=== PATIENT | female | born 1980 | race Caucasian/White ===

== ENCOUNTER → 2016-12-30 | Outpatient (CLI) | payer OTHER ==
--- NOTE | 2016-12-31 07:53 | XR ---
EXAMINATION TYPE: XR chest 2V DATE OF EXAM: 12/30/2016 COMPARISON: NONE HISTORY: Cough. Exposure to mold. TECHNIQUE: Frontal and lateral views of the chest are obtained. FINDINGS: There is no focal air space opacity, pleural effusion, or pneumothorax seen. The cardiac silhouette size is within normal limits. The osseous structures are intact. IMPRESSION: No acute cardiopulmonary process.
== END | disposition home or self-care (01) ==
LOC: RADXRMAIN 16:04
PROVIDERS: ATTEND Family Medicine
DX: Z77.120 Contact with and (suspected) exposure to mold (toxic) (principal)
CPT/HCPCS: 71020

== ENCOUNTER 2017-10-30 09:40 | Emergency (ER) | payer OTHER ==
--- NOTE | 2017-10-30 10:51 | ED ---
General Adult HPI - General Chief complaint: Abdominal Pain Stated complaint: RT SIDE RIB PAIN X 3 WEEKS Time Seen by Provider: 10/30/17 10:26 Source: patient, RN notes reviewed Mode of arrival: ambulatory Limitations: no limitations - History of Present Illness Initial comments: Patient 37-year-old male presented emergency room today with a chief complaint of right upper quadrant pain over the last 3 weeks. Patient does admit that she was worse with certain that it was something related to work. States symptoms seem to be more persistent and getting worse. Describes a sharp pain does been some radiation to the back. States worse with deep breath. Patient admits to a history of blood clot. States not on any blood thinners. Patient denies any recent fever, chills, shortness of breath, chest pain, nausea or vomiting, numbness or tingling, dysuria or hematuria, constipation or diarrhea, headaches or visual changes, or any other complaints. - Related Data Home Medications Medication Instructions Recorded Confirmed Acetaminophen-Codeine 300-30mg 1 tab PO TID PRN 02/06/16 10/30/17 [Tylenol w/codeine #3] Dextroamphetamine/Amphetamine 30 mg PO BID 10/30/17 10/30/17 [Adderall] Gabapentin [Neurontin] 400 mg PO TID 10/30/17 10/30/17 Previous Rx's Medication Instructions Recorded Ibuprofen [Motrin] 600 mg PO Q6HR PRN #40 day 10/30/17 Allergies Allergy/AdvReac Type Severity Reaction Status Date / Time No Known Allergies Allergy Verified 10/30/17 10:15 Review of Systems ROS Statement: Those systems with pertinent positive or pertinent negative responses have been documented in the HPI. ROS Other: All systems not noted in ROS Statement are negative. Past Medical History Past Medical History: Blood Disorder, Eye Disorder Additional Past Medical History / Comment(s): optic neuritis, multiple sclerosis ,profiency s disorder History of Any Multi-Drug Resistant Organisms: None Reported Past Surgical History: Appendectomy Additional Past Surgical History / Comment(s): ectopic Past Anesthesia/Blood Transfusion Reactions: No Reported Reaction Past Psychological History: Anxiety Smoking Status: Current every day smoker Past Alcohol Use History: None Reported Past Drug Use History: None Reported General Exam - General Exam Comments Initial Comments: General: The patient is awake and alert, in no distress, and does not appear acutely ill. Eye: Pupils are equal, round and reactive to light, extra-ocular movements are intact. No nystagmus. There is normal conjunctiva bilaterally. No signs of icterus. Ears, nose, mouth and throat: There are moist mucous membranes and no oral lesions. Neck: The neck is supple, there is no tenderness or JVD. Cardiovascular: There is a regular rate and rhythm. No murmur, rub or gallop is appreciated. Respiratory: Lungs are clear to auscultation, respirations are non-labored, breath sounds are equal. No wheezes, stridor, rales, or rhonchi. Gastrointestinal: Abdomen soft on palpation. Does have increased tenderness right upper quadrant. Positive Bobby sign. No rebound tenderness. No guarding. No CVA tenderness. Musculoskeletal: Normal ROM, no tenderness. Strength 5/5. Sensation intact. Pulses equal bilaterally 2+. Neurological: A&O x 3. CN II-XII intact, There are no obvious motor or sensory deficits. Coordination appears grossly intact. Speech is normal. Skin: Skin is warm and dry and no rashes or lesions are noted. Psychiatric: Cooperative, appropriate mood & affect, normal judgment. Limitations: no limitations Course Vital Signs 10/30/17 10/30/17 10/30/17 10:01 12:30 13:18 Temperature 98.8 F 98.0 F Pulse Rate 69 79 Respiratory 16 18 18 Rate Blood Pressure 130/83 119/73 O2 Sat by Pulse 96 98 Oximetry EKG Findings - EKG Comments: EKG Findings:: EKG performed at 1121: Shows normal sinus rhythm at 68 beats per minute. [place] interval 128. QRS 86. QT/QTC 388/412. No acute ST change. Medical Decision Making - Medical Decision Making Labs been reviewed. Patient's d-dimer elevated 2.2. Patient did have CT angiogram of the chest. Reveals no evidence of PE. Does show a right-sided sixth rib fracture. Patient denies any specific injury that she can think of. She states she's had pain for the past 3 weeks. Patient remaining labs unremarkable. Ultrasound of the right upper quadrant shows a contracted gallbladder. Patient is advised to brace the area if she needs to cough or sneeze. Advised to use ibuprofen for pain. Advised follow-up family physician or return here to the emergency room for any other concerns. - Lab Data Result diagrams: 10/30/17 11:20 04/13/18 11:20 Lab Results 10/30/17 10/30/17 10/30/17 Range/Units 11:20 11:20 11:20 WBC 7.6 (3.8-10.6) k/uL RBC 4.44 (3.80-5.40) m/uL Hgb 13.4 (11.4-16.0) gm/dL Hct 40.6 (34.0-46.0) % MCV 91.5 (80.0-100.0) fL MCH 30.3 (25.0-35.0) pg MCHC 33.1 (31.0-37.0) g/dL RDW 12.9 (11.5-15.5) % Plt Count 289 (150-450) k/uL Neutrophils % 61 % Lymphocytes % 27 % Monocytes % 7 % Eosinophils % 3 % Basophils % 1 % Neutrophils # 4.7 (1.3-7.7) k/uL Lymphocytes # 2.1 (1.0-4.8) k/uL Monocytes # 0.5 (0-1.0) k/uL Eosinophils # 0.2 (0-0.7) k/uL Basophils # 0.1 (0-0.2) k/uL PT 9.4 (9.0-12.0) sec INR 0.9 (<1.2) APTT 25.1 (22.0-30.0) sec D-Dimer 2.28 H (<0.60) mg/L FEU Sodium 139 (137-145) mmol/L Potassium 4.9 (3.5-5.1) mmol/L Chloride 105 (98-107) mmol/L Carbon Dioxide 24 (22-30) mmol/L Anion Gap 10 mmol/L BUN 16 (7-17) mg/dL Creatinine 0.50 L (0.52-1.04) mg/dL Est GFR (CKD-EPI)AfAm >90 (>60 ml/min/1.73 sqM) Est GFR (CKD-EPI)NonAf >90 (>60 ml/min/1.73 sqM) Glucose 89 (74-99) mg/dL Calcium 9.9 (8.4-10.2) mg/dL Total Bilirubin 0.3 (0.2-1.3) mg/dL AST 19 (14-36) U/L ALT 15 (9-52) U/L Alkaline Phosphatase 83 (38-126) U/L Troponin I (0.000-0.034) ng/mL Total Protein 7.4 (6.3-8.2) g/dL Albumin 4.2 (3.5-5.0) g/dL Amylase 45 (30-110) U/L Lipase 49 (23-300) U/L Urine Color Urine Appearance (Clear) Urine pH (5.0-8.0) Ur Specific Clemons (1.001-1.035) Urine Protein (Negative) Urine Glucose (UA) (Negative) Urine Ketones (Negative) Urine Blood (Negative) Urine Nitrite (Negative) Urine Bilirubin (Negative) Urine Urobilinogen (<2.0) mg/dL Ur Leukocyte Esterase (Negative) Urine HCG, Qual (Not Detectd) 10/30/17 10/30/17 10/30/17 Range/Units 11:20 11:20 11:20 WBC (3.8-10.6) k/uL RBC (3.80-5.40) m/uL Hgb (11.4-16.0) gm/dL Hct (34.0-46.0) % MCV (80.0-100.0) fL MCH (25.0-35.0) pg MCHC (31.0-37.0) g/dL RDW (11.5-15.5) % Plt Count (150-450) k/uL Neutrophils % % Lymphocytes % % Monocytes % % Eosinophils % % Basophils % % Neutrophils # (1.3-7.7) k/uL Lymphocytes # (1.0-4.8) k/uL Monocytes # (0-1.0) k/uL Eosinophils # (0-0.7) k/uL Basophils # (0-0.2) k/uL PT (9.0-12.0) sec INR (<1.2) APTT (22.0-30.0) sec D-Dimer (<0.60) mg/L FEU Sodium (137-145) mmol/L Potassium (3.5-5.1) mmol/L Chloride (98-107) mmol/L Carbon Dioxide (22-30) mmol/L Anion Gap mmol/L BUN (7-17) mg/dL Creatinine (0.52-1.04) mg/dL Est GFR (CKD-EPI)AfAm (>60 ml/min/1.73 sqM) Est GFR (CKD-EPI)NonAf (>60 ml/min/1.73 sqM) Glucose (74-99) mg/dL Calcium (8.4-10.2) mg/dL Total Bilirubin (0.2-1.3) mg/dL AST (14-36) U/L ALT (9-52) U/L Alkaline Phosphatase (38-126) U/L Troponin I <0.012 (0.000-0.034) ng/mL Total Protein (6.3-8.2) g/dL Albumin (3.5-5.0) g/dL Amylase (30-110) U/L Lipase (23-300) U/L Urine Color Yellow Urine Appearance Clear (Clear) Urine pH 6.0 (5.0-8.0) Ur Specific Clemons 1.018 (1.001-1.035) Urine Protein Negative (Negative) Urine Glucose (UA) Negative (Negative) Urine Ketones Negative (Negative) Urine Blood Negative (Negative) Urine Nitrite Negative (Negative) Urine Bilirubin Negative (Negative) Urine Urobilinogen 2.0 (<2.0) mg/dL Ur Leukocyte Esterase Negative (Negative) Urine HCG, Qual Not Detected (Not Detectd) Disposition Clinical Impression: Rib fracture Disposition: HOME SELF-CARE Condition: Good Instructions: Rib Fracture (ED) Additional Instructions: Please brace area few need to cough or sneeze. Please use Tylenol/Motrin for pain as needed. Please follow family doctor return to emergency room for any symptoms increase worsen. Prescriptions: Ibuprofen [Motrin] 600 mg PO Q6HR PRN #40 day PRN Reason: Pain Referrals: Reza Walters DO [Primary Care Provider] - 1-2 days Time of Disposition: 13:46
[2017-10-30 11:33] LABS: Basophils # (A) 0.1 k/uL (0-0.2); Basophils % (A) 1 %; Eosinophils # (A) 0.2 k/uL (0-0.7); Eosinophils % (A) 3 %; HCT 40.6 % (34.0-46.0); HGB 13.4 gm/dL (11.4-16.0); Lymphocytes # (A) 2.1 k/uL (1.0-4.8); Lymphocytes % (A) 27 %; MCH 30.3 pg (25.0-35.0); MCHC 33.1 g/dL (31.0-37.0); MCV 91.5 fL (80.0-100.0); Mean Platelet Volume 7.8; Monocytes # (A) 0.5 k/uL (0-1.0); Monocytes % (A) 7 %; Neutrophils # (A) 4.7 k/uL (1.3-7.7); Neutrophils % (A) 61 %; Platelet Count 289 k/uL (150-450); RBC 4.44 m/uL (3.80-5.40); RDW 12.9 % (11.5-15.5); WBC 7.6 k/uL (3.8-10.6)
[2017-10-30 11:43] LABS: Appearance,Urine Clear (Clear); Bilirubin,Urine Negative (Negative); Blood,Urine Negative (Negative); Color,Urine Yellow; Glucose,Urine (UA) Negative (Negative); Ketones,Urine Negative (Negative); Leukocyte Esterase,Urine Negative (Negative); Nitrite,Urine Negative (Negative); Protein,Urine Negative (Negative); Specific Gravity,Urine 1.018 (1.001-1.035)
[2017-10-30 11:45] LABS: ALT 15 U/L (9-52); AST 19 U/L (14-36); Albumin 4.2 g/dL (3.5-5.0); Alkaline Phosphatase 83 U/L (38-126); Amylase 45 U/L (30-110); Anion Gap 10 mmol/L; Blood Urea Nitrogen 16 mg/dL (7-17); Calcium 9.9 mg/dL (8.4-10.2); Carbon Dioxide 24 mmol/L (22-30); Chloride 105 mmol/L (98-107); Glucose 89 mg/dL (74-99); Lipase 49 U/L (23-300); Potassium 4.9 mmol/L (3.5-5.1); Sodium 139 mmol/L (137-145); Total Bilirubin 0.3 mg/dL (0.2-1.3); Total Protein 7.4 g/dL (6.3-8.2)
[2017-10-30 11:55] LABS: INR 0.9 (<1.2)
[2017-10-30 11:56] LABS: D-Dimer 2.28 mg/L FEU (<0.60); Partial Thromboplastin Time 25.1 sec (22.0-30.0); Prothrombin Time 9.4 sec (9.0-12.0)
--- NOTE | 2017-10-30 12:07 | US ---
EXAMINATION TYPE: US abdomen limited DATE OF EXAM: 10/30/2017 COMPARISON: NONE CLINICAL HISTORY: Abdominal Pain. Patient ate this morning EXAM MEASUREMENTS: Liver Length: 15.7 cm Gallbladder Wall: 0.26 cm CBD: 0.29 cm Right Kidney: 11.9 x 4.4 x 4.8 cm Pancreas: Tail obscured by overlying bowel gas, visualized portions appear wnl Liver: wnl Gallbladder: Slightly contracted, no gallstones or sludge visualized Evidence for sonographic Bobby's sign: No CBD: wnl Right Kidney: No hydronephrosis or masses seen IMPRESSION: The gallbladder is contracted without evidence for cholelithiasis or pericholecystic flui d.
--- NOTE | 2017-10-30 12:29 | XR ---
EXAMINATION TYPE: XR chest 2V DATE OF EXAM: 10/30/2017 COMPARISON: NONE HISTORY: Chest pain TECHNIQUE: Frontal and lateral views of the chest are obtained. FINDINGS: There is no focal air space opacity. No evidence for pneumothorax. No pleural effusion. The cardiac silhouette size is within normal limits. The osseous structures are grossly intact. IMPRESSION: 1. No acute cardiopulmonary process.
[2017-10-30 12:31] VITALS: RESP 18; TEMP 98
[2017-10-30] MEDS ORDERED: RX INFO: IV CONTRAST WAS GIVEN 1 EACH MISC MISCELLANE PRN (12:38)
[2017-10-30] MEDS ORDERED: SODIUM CHLORIDE 0.9% 1,000 ML IV STA (12:39)
--- NOTE | 2017-10-30 13:24 | CT ---
EXAMINATION TYPE: CT angio chest DATE OF EXAM: 10/30/2017 COMPARISON: Chest x-ray same day HISTORY: Right sided rib pain CT DLP: 173.8 mGycm Automated exposure control for dose reduction was used. CONTRAST: CTA scan of the thorax is performed with IV Contrast, patient injected with 100 mL of Isovue 370, pul monary embolism protocol. MIP images are created and reviewed. 3D reconstructed images are created on an independent workstation and reviewed. FINDINGS: LUNGS: The lungs are remarkable for minimal dependent atelectatic change, there is no concerning pare nchymal mass or nodule identified. There is no pleural effusion or pneumothorax seen. The tracheob ronchial tree is patent. AORTA: No additional significant abnormality is seen. MEDIASTINUM: There is satisfactory enhancement of the pulmonary artery and its branches, there is no CT evidence for pulmonary embolism. There are no greater than 1 cm hilar or mediastinal lymph nodes. No pericardial effusion is seen. OTHER: Minimally displaced right sixth rib fracture is noted.. IMPRESSION: RIGHT SIXTH RIB FRACTURE. NO EVIDENT PULMONARY EMBOLISM. Correlate for history of trauma.
[2017-10-30 14:03] VITALS: BP 123/78; PULSE 87
== END 2017-10-30 14:05 | disposition home or self-care (01) ==
LOC: EC 09:40
DX: S22.31XA Fracture of one rib, right side, initial encounter for closed fracture (principal); R10.11 Right upper quadrant pain; F17.200 Nicotine dependence, unspecified, uncomplicated; Z90.49 Acquired absence of other specified parts of digestive tract; Z79.899 Other long term (current) drug therapy
CPT/HCPCS: 99284; 96360; 36415; 93005; 85379; 80053; 82150; 83690; 84484; 85025; 85610; 85730; 81003; 81025; 71046; 76705; 71275; Q9967

== ENCOUNTER 2018-08-14 22:07 | Inpatient (IN) | payer OTHER ==
[~2018-08-14 22:07] MED LIST: LACTATED RINGERS 1,000 ML IV ONE
--- NOTE | 2018-08-14 22:37 | ED ---
Abdominal Pain HPI - General Chief Complaint: Abdominal Pain Stated Complaint: Abd Pain Time Seen by Provider: 08/14/18 22:11 Source: patient Mode of arrival: EMS Limitations: no limitations - History of Present Illness Initial Comments: Mónica is a 37-year-old female with a history of ruptured ectopic in 2006 who presents the emergency department today for evaluation of sudden onset of severe lower pelvic pain. Patient reports her last normal menses was in May she had spotting in June and one day of spotting in July she has not taken a test at home. Around 7 PM this evening she developed sudden onset of severe abdominal pain which prompted her call EMS for transfer to the hospital. Patient is not on any antiplatelet or anticoagulant medications. She has no police that would prevent her from receiving blood products. - Related Data Home Medications Medication Instructions Recorded Confirmed Acetaminophen-Codeine 300-30mg 1 tab PO TID PRN 02/06/16 10/30/17 [Tylenol w/codeine #3] Dextroamphetamine/Amphetamine 30 mg PO BID 10/30/17 10/30/17 [Adderall] Gabapentin [Neurontin] 400 mg PO TID 10/30/17 10/30/17 Previous Rx's Medication Instructions Recorded Ibuprofen [Motrin] 600 mg PO Q6HR PRN #40 day 10/30/17 Allergies Allergy/AdvReac Type Severity Reaction Status Date / Time No Known Allergies Allergy Verified 08/14/18 22:29 Review of Systems ROS Statement: Those systems with pertinent positive or pertinent negative responses have been documented in the HPI. ROS Other: All systems not noted in ROS Statement are negative. Past Medical History Past Medical History: Blood Disorder, Eye Disorder Additional Past Medical History / Comment(s): optic neuritis, multiple sclerosis ,profiency s disorder History of Any Multi-Drug Resistant Organisms: None Reported Past Surgical History: Appendectomy Additional Past Surgical History / Comment(s): ectopic Past Anesthesia/Blood Transfusion Reactions: No Reported Reaction Past Psychological History: Anxiety Smoking Status: Current every day smoker Past Alcohol Use History: None Reported Past Drug Use History: None Reported General Exam - General Exam Comments Initial Comments: GENERAL: Pale cool diaphoretic HENT: Normocephalic, Atraumatic. EYES: Conjunctival pallor PULMONARY: Tachypnea CARDIOVASCULAR: Tachycardia, regular thready radial pulses ABDOMEN: Distended, firm, peritoneal SKIN: Skin is pale cool and diaphoretic NEUROLOGIC: Patient is alert and oriented x3 MUSCULOSKELETAL: Normal extremities with adequate strength and full range of motion. No lower extremity swelling or edema. No calf tenderness. LYMPHATICS: No significant lymphadenopathy is noted PSYCHIATRIC: Appropriate situational anxiety Limitations: no limitations Limitations: no limitations Course Vital Signs 08/14/18 08/14/18 08/14/18 22:17 22:23 22:43 Temperature 98.1 F 97.5 F L Pulse Rate 75 89 Respiratory 20 20 Rate Blood Pressure 95/75 95/75 132/82 O2 Sat by Pulse 98 Oximetry 08/14/18 08/14/18 08/14/18 22:50 22:51 22:53 Temperature 98.2 F Pulse Rate 101 H 108 H 109 H Respiratory 18 20 18 Rate Blood Pressure 118/87 127/77 127/77 O2 Sat by Pulse 100 Oximetry 08/14/18 08/14/18 08/14/18 23:00 23:06 23:18 Temperature 98.2 F 98.3 F Pulse Rate 113 H 115 H 93 Respiratory 24 24 24 Rate Blood Pressure 127/77 104/79 114/77 O2 Sat by Pulse 100 100 Oximetry Medical Decision Making - Medical Decision Making Patient was seen and evaluated upon arrival to the emergency department during my initial evaluation I did a bedside ultrasound which revealed a large amount of free fluid in the abdomen given history of a very high suspicion for a ruptured ectopic Patient was moved to the resuscitation bay second IV line was obtained Blood was drawn Patient was noted to become hypotensive and tachycardic with systolic blood pressures in the 90s heart rate in the 120s massive transfusion protocol was initiated Patient care was discussed with gynecology on-call Dr. Castellanos, at this time we have no labs patient has not had a positive test but I do suspect an ectopic he will be to bedside to evaluate next line next patient to CT for imaging Patient returned from CT blood pressure continues to hover in the 90s systolic with maps in the high 50s Blood transfusion was initiated CT suggestive of hemorrhage in the pelvis with free fluid in the abdomen Dr. Castellanos and anesthesiology at bedside plan to take the patient to OR for exploratory laparoscopy Labs did results hemoglobin was 10.0 beta-hCG was >6000 consistent with the physical exam and history diagnosis of ruptured ectopic Patient's blood pressure improving after IV fluids and worse liter of blood I was contacted by the lab to, patient's type and screen was positive for antibodies results the patient will have a febrile reaction of blood I did discuss this with Dr. Sandhu who is aware. Patient was transferred to the OR for further management patient was hemodynamically stable at the time of transfer. - Lab Data Result diagrams: 08/14/18 22:25 08/14/18 22:25 Lab Results 08/14/18 08/14/18 08/14/18 Range/Units 22:25 22:25 22:25 WBC 15.4 H (3.8-10.6) k/uL RBC 3.31 L (3.80-5.40) m/uL Hgb 10.0 L (11.4-16.0) gm/dL Hct 31.1 L (34.0-46.0) % MCV 94.1 (80.0-100.0) fL MCH 30.1 (25.0-35.0) pg MCHC 32.0 (31.0-37.0) g/dL RDW 13.0 (11.5-15.5) % Plt Count 323 (150-450) k/uL Neutrophils % 81 % Lymphocytes % 14 % Monocytes % 4 % Eosinophils % 0 % Basophils % 0 % Neutrophils # 12.4 H (1.3-7.7) k/uL Lymphocytes # 2.1 (1.0-4.8) k/uL Monocytes # 0.5 (0-1.0) k/uL Eosinophils # 0.1 (0-0.7) k/uL Basophils # 0.0 (0-0.2) k/uL PT (9.0-12.0) sec INR (<1.2) APTT (22.0-30.0) sec Fibrinogen (200-500) mg/dL Sodium 135 L (137-145) mmol/L Potassium 4.5 (3.5-5.1) mmol/L Chloride 106 (98-107) mmol/L Carbon Dioxide 18 L (22-30) mmol/L Anion Gap 11 mmol/L BUN 15 (7-17) mg/dL Creatinine 0.68 (0.52-1.04) mg/dL Est GFR (CKD-EPI)AfAm >90 (>60 ml/min/1.73 sqM) Est GFR (CKD-EPI)NonAf >90 (>60 ml/min/1.73 sqM) Glucose 218 H (74-99) mg/dL Calcium 9.4 (8.4-10.2) mg/dL Ionized Calcium Abhishek 4.9 (4.5-5.3) mg/dL Total Bilirubin 0.3 (0.2-1.3) mg/dL AST 14 (14-36) U/L ALT 23 (9-52) U/L Alkaline Phosphatase 52 (38-126) U/L Total Protein 6.4 (6.3-8.2) g/dL Albumin 3.7 (3.5-5.0) g/dL HCG, Quant 6163.5 mIU/mL Blood Type A Positive Blood Type Recheck No Antibody Screen POSITIVE Antibody Identification Anti-E Direct Antiglob Test Negative Crossmatch See Detail Spec Expiration Date 08/17/2018 - 232408/14/18 Range/Units 22:25 WBC (3.8-10.6) k/uL RBC (3.80-5.40) m/uL Hgb (11.4-16.0) gm/dL Hct (34.0-46.0) % MCV (80.0-100.0) fL MCH (25.0-35.0) pg MCHC (31.0-37.0) g/dL RDW (11.5-15.5) % Plt Count (150-450) k/uL Neutrophils % % Lymphocytes % % Monocytes % % Eosinophils % % Basophils % % Neutrophils # (1.3-7.7) k/uL Lymphocytes # (1.0-4.8) k/uL Monocytes # (0-1.0) k/uL Eosinophils # (0-0.7) k/uL Basophils # (0-0.2) k/uL PT 10.0 (9.0-12.0) sec INR 0.9 (<1.2) APTT 18.4 L (22.0-30.0) sec Fibrinogen 355 (200-500) mg/dL Sodium (137-145) mmol/L Potassium (3.5-5.1) mmol/L Chloride (98-107) mmol/L Carbon Dioxide (22-30) mmol/L Anion Gap mmol/L BUN (7-17) mg/dL Creatinine (0.52-1.04) mg/dL Est GFR (CKD-EPI)AfAm (>60 ml/min/1.73 sqM) Est GFR (CKD-EPI)NonAf (>60 ml/min/1.73 sqM) Glucose (74-99) mg/dL Calcium (8.4-10.2) mg/dL Ionized Calcium Abhishek (4.5-5.3) mg/dL Total Bilirubin (0.2-1.3) mg/dL AST (14-36) U/L ALT (9-52) U/L Alkaline Phosphatase (38-126) U/L Total Protein (6.3-8.2) g/dL Albumin (3.5-5.0) g/dL HCG, Quant mIU/mL Blood Type Blood Type Recheck Antibody Screen Antibody Identification Direct Antiglob Test Crossmatch Spec Expiration Date Critical Care Time Critical Care Time: Yes Total Critical Care Time: 45 Critical Care Time: Critical Care Critical care time was exclusive of separately billable procedures and treating other patients and teaching time. Critical care was necessary to treat or prevent imminent or life-threatening deterioration. Critical care was time spent personally by me on the following activities: development of treatment plan with patient or surrogate, discussions with consultants, discussions with primary provider, evaluation of patient's response to treatment, examination of patient, obtaining history from patient or surrogate, ordering and performing treatments and interventions, ordering and review of laboratory studies, ordering and review of radiographic studies, pulse oximetry, re-evaluation of patient's condition and review of old charts. Disposition Clinical Impression: Ruptured ectopic , Ruptured left tubal ectopic causing hemoperitoneum Disposition: ADMITTED IP TO THIS [facility] Condition: Serious Is patient prescribed a controlled substance at d/c from ED?: No Referrals: None,Stated [Primary Care Provider] - 1-2 days
[2018-08-14] MEDS ORDERED: fentaNYL (PF) 50 MCG/ML 2 ML AMP IV STA (22:39)
[2018-08-14] MEDS ORDERED: TRANEXAMIC ACID 1,000 MG in SODIUM CHLORIDE 0.9% 50 ML IVPB ONE (22:45)
[2018-08-14 22:52] LABS: Basophils % (A) 0 %; Eosinophils # (A) 0.1 k/uL (0-0.7); Eosinophils % (A) 0 %; HCT 31.1 % (34.0-46.0); Lymphocytes # (A) 2.1 k/uL (1.0-4.8); Lymphocytes % (A) 14 %; MCH 30.1 pg (25.0-35.0); MCV 94.1 fL (80.0-100.0); Monocytes # (A) 0.5 k/uL (0-1.0); Monocytes % (A) 4 %; Neutrophils # (A) 12.4 k/uL (1.3-7.7); Neutrophils % (A) 81 %; Platelet Count 323 k/uL (150-450); RBC 3.31 m/uL (3.80-5.40); WBC 15.4 k/uL (3.8-10.6)
[2018-08-14] MEDS ORDERED: PANTOPRAZOLE 40 MG/10 ML VIAL IVP STA (22:52)
[2018-08-14 23:00] LABS: ALT 23 U/L (9-52); AST 14 U/L (14-36); Albumin 3.7 g/dL (3.5-5.0); Alkaline Phosphatase 52 U/L (38-126); Anion Gap 11 mmol/L; Blood Urea Nitrogen 15 mg/dL (7-17); Calcium 9.4 mg/dL (8.4-10.2); Carbon Dioxide 18 mmol/L (22-30); Chloride 106 mmol/L (98-107); Glucose 218 mg/dL (74-99); Potassium 4.5 mmol/L (3.5-5.1); Sodium 135 mmol/L (137-145); Total Bilirubin 0.3 mg/dL (0.2-1.3); Total Protein 6.4 g/dL (6.3-8.2)
[2018-08-14 23:01] LABS: Ionized Calcium 4.9 mg/dL (4.5-5.3)
[2018-08-14] MEDS ORDERED: NALOXONE 0.4 MG/ML 1 ML VIAL IV PRN (23:03)
--- NOTE | 2018-08-14 23:04 | P.HPOB ---
History of Present Illness H&P Date: 08/14/18 Chief Complaint: Acute pelvic pain and hemoperitoneum suspected ectopic Mónica is a 37-year-old with 1 prior ectopic in 2006 which also ruptured. She relates that she had a normal period sometime in May and maybe 1 day of spotting at some point in June and possibly even sometime in July but she's not had a period since that time. She was on aware that she could be however. Her symptoms began this evening at approximately 7:00 which began having severe abdominal pain it progressed and she was brought to the emergency room where gross hemoperitoneum was diagnosed on ultrasound and she was hemodynamically unstable with tachycardia and while her hemoglobin is 10 she is quite pale and symptomatic for likely ruptured ectopic a quantitative beta-hCG however is not back. I do not have a final ultrasound report on either, so it is possible this is ruptured hemorrhagic cyst or other less common finding. However, based on the amount of blood that appears to be in her belly and the amount of pain she is in we are taking her to the operating room for a exploratory laparotomy possible salpingectomy versus potential oophorectomy or even possibly hysterectomy if there is a large defect in the uterus. Risks/benefits and alternatives were reviewed with the patient and all questions were answered for her prior to proceeding to the operative room, however this is a true emergency based on her symptomatology. On physical exam vital signs currently are stable with stable blood pressure and mild tachycardia with a unit of packed red blood cells running. Heart regular, lungs clear, extremities without pain. Abdomen is firm with distention secondary to the blood. Pelvic exam was deferred to the operating room as it was when offered very little and we are in a relative hurry to try and get her to the operating room to find the source of this bleeding. Assessment abdominal pain with hemoperitoneum suspect ectopic Plan exploratory laparotomy Past Medical History Past Medical History: Blood Disorder, Eye Disorder, Fibromyalgia Additional Past Medical History / Comment(s): optic neuritis, multiple sclerosis ,profiency s disorder History of Any Multi-Drug Resistant Organisms: None Reported Past Surgical History: Appendectomy Additional Past Surgical History / Comment(s): ectopic Past Anesthesia/Blood Transfusion Reactions: No Reported Reaction Past Psychological History: Anxiety Smoking Status: Current every day smoker Past Alcohol Use History: None Reported Past Drug Use History: None Reported Medications and Allergies Home Medications Medication Instructions Recorded Confirmed Type Acetaminophen-Codeine 300-30mg 1 tab PO TID PRN 02/06/16 10/30/17 History [Tylenol w/codeine #3] Dextroamphetamine/Amphetamine 30 mg PO BID 10/30/17 10/30/17 History [Adderall] Gabapentin [Neurontin] 400 mg PO TID 10/30/17 10/30/17 History Ibuprofen [Motrin] 600 mg PO Q6HR PRN #40 day 10/30/17 Rx Allergies Allergy/AdvReac Type Severity Reaction Status Date / Time No Known Allergies Allergy Verified 08/14/18 22:29 Exam Osteopathic Statement: *. No significant issues noted on an osteopathic structural exam other than those noted in the History and Physical/Consult. Vital Signs Temp Pulse Resp BP Pulse Ox 08/14/18 22:53 109 H 18 127/77 08/14/18 22:51 98.2 F 108 H 20 127/77 08/14/18 22:43 97.5 F L 89 20 132/82 08/14/18 22:17 98.1 F 75 20 95/75 98 Intake and Output 08/14/18 08/14/18 08/15/18 14:59 22:59 06:59 Intake Total 0 Balance 0 Intake: Blood Product 0 Rc As-1 Unit 0 [id number] Other: Weight 70.307 kg Results Result Diagrams: 08/14/18 22:25 08/14/18 22:25 Abnormal Lab Results - Last 24 Hours (Table) 08/14/18 08/14/18 Range/Units 22:25 22:25 WBC 15.4 H (3.8-10.6) k/uL RBC 3.31 L (3.80-5.40) m/uL Hgb 10.0 L (11.4-16.0) gm/dL Hct 31.1 L (34.0-46.0) % Neutrophils # 12.4 H (1.3-7.7) k/uL Sodium 135 L (137-145) mmol/L Carbon Dioxide 18 L (22-30) mmol/L Glucose 218 H (74-99) mg/dL
[2018-08-14 23:06] LABS: INR 0.9 (<1.2)
--- NOTE | 2018-08-14 23:10 | CT ---
EXAMINATION TYPE: CT abdomen pelvis w con DATE OF EXAM: 08/14/2018 COMPARISON: None HISTORY: Abdomen pain, hemoperitoneum. Hx ectopic pregnancies. CT DLP: 905.4 mGycm Automated exposure control for dose reduction was used. TECHNIQUE: Helical acquisition of images was performed from the lung bases through the pelvis. CONTRAST: Performed without Oral Contrast and with IV Contrast, patient injected with 100 mL of Isovue 300. FINDINGS: Lung bases are clear. There is no pleural effusion. Heart size is normal. There is no pericardial eff usion. Liver shows no focal defect. Gallbladder appears normal. Bile ducts are not dilated. Spleen has dang l size. There is no pancreatic mass. There is no adrenal mass. Kidneys show satisfactory contrast opacification. There is no hydronephrosi s. Ureters are not dilated. There is no retroperitoneal adenopathy. There is a moderate amount of free fluid in the abdomen. Fluid around the liver has low attenuation. There is higher attenuation fluid in the pelvis. This would be consistent with acute or subacute hemo rrhage. Uterus is anteverted. There is no evidence of free air. There is no evidence of bowel obstruction. I see no intestinal wall thickening in the mid and distal small bowel. There is slight wall thickening of the proximal jejunu m. There is 8 x 4.5 cm higher attenuation mass anterior to the uterine fundus that could be additiona l hemorrhage. Lumbar vertebra have normal spacing and alignment. Posterior elements are intact. There is no albaro ruth fracture. I see no focal bone destruction. IMPRESSION: THERE IS MODERATE AMOUNT OF FREE FLUID IN THE ABDOMEN AND PELVIS. THE FLUID AROUND THE LIVER AND SPLE EN HAS LOW ATTENUATION AND FLUID IN THE PELVIS HAS HIGHER ATTENUATION CONSISTENT WITH ACUTE OR SUBACU TE HEMORRHAGE. Uterus is not enlarged to suggest intrauterine gestational sac. Findings are consisten t with a ruptured ectopic and extensive intraperitoneal hemorrhage. This exam was discussed with ER physician at 11:10 PM.
[2018-08-14 23:16] LABS: HCG,Quantitative Serum 6163.5 mIU/mL
[2018-08-14 23:18] LABS: Partial Thromboplastin Time 18.4 sec (22.0-30.0)
[2018-08-14] MEDS ORDERED: LIDOCAINE 1% INJ 10MG/ML (20 ML MDV) ONE (23:29)
[2018-08-14] MEDS ORDERED: GLYCOPYRROLATE 0.2 MG/ML 2 ML VIAL ONE (23:29)
[2018-08-14] MEDS ORDERED: IV FLUID CONTINUATION 400 ML IV ONE (23:29)
[2018-08-14] MEDS ORDERED: MIDAZOLAM 2 MG/2 ML VIAL ONE (23:29)
[2018-08-14] MEDS ORDERED: fentaNYL (PF) 50 MCG/ML 2 ML AMP ONE (23:29)
[2018-08-14] MEDS ORDERED: ONDANSETRON 4 MG/2 ML VIAL ONE (23:29)
[2018-08-14] MEDS ORDERED: PROPOFOL 10 MG/ML 20 ML VIAL IV ONE (23:29)
[2018-08-14] MEDS ORDERED: HYDROmorphone (PF) 1 MG/ML ONE (23:29)
[2018-08-14] MEDS ORDERED: DEXAMETHASONE SOD PHOS (MDV) 100 MG/10 ML VIAL ONE (23:29)
[2018-08-14] MEDS ORDERED: NEOSTIGMINE 1 MG/ML 10 ML VIAL ONE (23:29)
[2018-08-14] MEDS ORDERED: ROCURONIUM BROMIDE 10 MG/ML 10 ML VIAL IV ONE (23:29)
[2018-08-14] MEDS ORDERED: LACTATED RINGERS 1,000 ML IV ONE (23:51)
[2018-08-15] MEDS ORDERED: ONDANSETRON 4 MG/2 ML VIAL IVP PRN (00:47)
[2018-08-15] MEDS ORDERED: HYDROmorphone 1 MG/ML 1 ML SYRINGE IVP ONE ×4 (00:55→01:35)
--- NOTE | 2018-08-15 00:55 | P.OP ---
Date of Procedure: 08/15/18 Preoperative Diagnosis: Abdominal pain with hemoperitoneum suspect ectopic Postoperative Diagnosis: Same, ectopic ruptured voluntary sterilization Procedure(s) Performed: Exploratory laparotomy with lysis of adhesions and removal of large blood and clot from abdomen. Left salpingectomy and right fallopian tube Filshie clip placement Anesthesia: ADRIANA Surgeon: Sean Castellanos Estimated Blood Loss (ml): 400 IV fluids (ml): 1,400 Urine output (ml): 100 Pathology: other (Tube and ectopic) Condition: stable Disposition: floor Operative Findings: Large amount of blood in the pelvis with omental adhesion along the entire anterior abdominal surface from prior surgery. Ectopic Precis was noted in the left fallopian tube stump from where she previously had a partial salpingectomy no fimbriated end was identified. Normal right fallopian tube bilateral ovaries normal uterus and normal Description of Procedure: Patient was taken to the operative suite where a general anesthetic was found be adequate. She was prepped and draped in the normal sterile fashion and placed in dorsal supine position. Initially a mini laparotomy incision was made in the midline and this incision was extended to the fascial layer with the second knife. Fascia was then nicked in the midline and this opening was extended laterally with Hammond scissors. Superior and inferior aspect of this incision were then grasped tented up and bluntly and sharply dissected off the rectus muscles. Rectus muscles were then divided the midline and blunt dissection through the peritoneum was made. Omental adhesions were immediately noted along the entire length of the anterior abdominal wall they were bluntly and sharply dissected free using Bovie cautery once this was accomplished large quantity of blood and clot was removed from the pelvis. Once we were able to visualize the uterus and ovary and tube the left tube was identified and immediately near the proximal stump of the fallopian tube the ectopic that was identified and noted to have ruptured. Tube was then elevated and using 2 Keven clamps they were clamped around the ectopic and the ectopic present was excised and tissue was sutured closed. Once excellent hemostasis was noted along this line again the pelvis was irrigated and blood and irrigation were removed. Uterus was then tipped the left side and the right fallopian tube was noted to be normal. In the emergency room the patient and I as well as her family had discussed if there is a normal tube that she would like to have permanent sterilization as she is completed her family planning and was actually hoping that this was an ectopic so she could no longer have a fallopian tubes because she did not want to able to get anymore. She has multiple medical problems and health issues which may be dangerous for her to even get in the first place. Therefore a Filshie clip was applied approximately 2 cm from uterine cornu completed completing the occlusion of the fallopian tube. Pelvis was then again irrigated inspection of the remainder the pelvis and lower abdomen were unremarkable. Therefore packing was removed and the fascial layer was closed with 0 Vicryl suture. One layer of 3-0 Vicryl was placed in the deep subcuticular tissues to reapproximate the skin the skin was then also closed with 3-0 Vicryl. Patient tolerated surgery very well, sponge, lap, needle counts were all correct 2. Patient was then taken to the recovery room in stable and satisfactory condition. It is also of note that we did go out and discuss with family the tying the fallopian tube to verify that that was absolutely what the patient desired as it was my understanding in the emergency room at that was what she would want done based on our discussion. They verified this information for us prior to tying of her tube.
[2018-08-15] MEDS ORDERED: HYDROmorphone PCA 5 MG/25 ML SYRINGE IV PRN (01:00)
[2018-08-15 02:18] VITALS: BMI 26.6
[2018-08-15] MEDS: LACTATED RINGERS 1,000 ML IV SCH ×2 (02:32→12:57)
[2018-08-15] MEDS: KETOROLAC 30 MG/ML 1 ML VIAL IVP SCH ×3 (06:25→18:10)
--- NOTE | 2018-08-15 10:01 | P.PN ---
Progress Note - Text Progress Note Date: 08/15/18 Postop day Mónica is seen and evaluated. Overall she looks very good, she is tolerating a liquid diet and will plan to advance her diet today. Tinajero catheter is coming soon she is producing good urine however. CBC from this morning is still pending. She voices no complaints other than some incisional tenderness. Long discussion was held with her this morning regarding findings of surgery and what was done and surgery she was very happy that we did occlude her right fallopian tube as this is giving her a lot of relief in that she will be able to get anymore. Vital signs are stable and she is afebrile. Heart regular, lungs clear, extremities without pain. Abdomen soft her incision is clean dry and intact. Assessment postop day 0 from sports or laparotomy for ruptured ectopic Plan continue current care with discontinuation of MOLD LAMINATOR and starting oral pain medication
[2018-08-15 10:27] LABS: Basophils % (A) 0 %; Eosinophils % (A) 0 %; HCT 25.6 % (34.0-46.0); Lymphocytes # (A) 1.1 k/uL (1.0-4.8); Lymphocytes % (A) 8 %; MCH 29.9 pg (25.0-35.0); MCHC 32.6 g/dL (31.0-37.0); MCV 91.8 fL (80.0-100.0); Mean Platelet Volume 7.3; Monocytes # (A) 0.3 k/uL (0-1.0); Monocytes % (A) 2 %; Neutrophils # (A) 11.4 k/uL (1.3-7.7); Neutrophils % (A) 89 %; Platelet Count 226 k/uL (150-450); RBC 2.79 m/uL (3.80-5.40); WBC 12.8 k/uL (3.8-10.6)
[2018-08-15 10:36] LABS: HGB 8.3 gm/dL (11.4-16.0)
[2018-08-15] MEDS: NICOTINE 14MG/24HR PATCH TRANSDERM SCH (10:58)
[2018-08-15] MEDS: HYDROcodone/APAP 7.5-325MG 1 EACH TAB PO PRN ×2 (15:36→21:36)
[2018-08-15 17:04] LABS: Basophils % (A) 0 %; Eosinophils % (A) 0 %; HGB 7.8 gm/dL (11.4-16.0); Lymphocytes # (A) 1.3 k/uL (1.0-4.8); Lymphocytes % (A) 9 %; MCH 30.1 pg (25.0-35.0); MCHC 32.7 g/dL (31.0-37.0); MCV 92.2 fL (80.0-100.0); Mean Platelet Volume 7.9; Monocytes # (A) 0.7 k/uL (0-1.0); Monocytes % (A) 4 %; Neutrophils # (A) 13.1 k/uL (1.3-7.7); Neutrophils % (A) 86 %; Platelet Count 217 k/uL (150-450); RDW 14.3 % (11.5-15.5); WBC 15.2 k/uL (3.8-10.6)
--- NOTE | 2018-08-15 17:31 | US ---
EXAMINATION TYPE: US OB limited DATE OF EXAM: 08/15/2018 COMPARISON: CT 08/14/2018 CLINICAL HISTORY: abdominal pain and distension post ectopic . EXAM PERFORMED: Transabdominal (TA) This exam was ordered to check for fluid build up in the abdomen post ruptured ectopic surgery. Patie nt feels as if her abdomen is filling up. Dr Castellanos asked Ultrasound to assess abdominal cavity for fluid. The RLQ, LLQ and RUQ where assessed for fluid, none appreciated. No fluid seen around liver ki dney interface. IMPRESSION: Limited exam. No significant free fluid evident on the images submitted.
[2018-08-15] MEDS: diphenhydrAMINE 50 MG CAP PO SCH (20:02)
[2018-08-15] MEDS: SIMETHICONE 80 MG CHEWABLE PO SCH (20:02)
[2018-08-16] MEDS: KETOROLAC 30 MG/ML 1 ML VIAL IVP SCH (00:23)
[2018-08-16] MEDS: HYDROcodone/APAP 7.5-325MG 1 EACH TAB PO PRN (05:34)
[2018-08-16] MEDS: IBUPROFEN 600 MG TAB PO SCH ×2 (06:16→20:08)
[2018-08-16 06:28] LABS: Basophils % (A) 0 %; Eosinophils % (A) 0 %; HCT 20.3 % (34.0-46.0); Lymphocytes # (A) 2.1 k/uL (1.0-4.8); Lymphocytes % (A) 21 %; MCH 29.6 pg (25.0-35.0); MCHC 32.3 g/dL (31.0-37.0); MCV 91.5 fL (80.0-100.0); Mean Platelet Volume 6.9; Monocytes # (A) 0.5 k/uL (0-1.0); Monocytes % (A) 5 %; Neutrophils # (A) 7.2 k/uL (1.3-7.7); Neutrophils % (A) 71 %; Platelet Count 203 k/uL (150-450); RBC 2.22 m/uL (3.80-5.40); RDW 14.3 % (11.5-15.5); WBC 10.1 k/uL (3.8-10.6)
[2018-08-16 06:38] LABS: HGB 6.6 gm/dL (11.4-16.0)
--- NOTE | 2018-08-16 07:43 | P.PN ---
Progress Note - Text Progress Note Date: 08/16/18 Mónica is seen and evaluated at least 3 times yesterday due to initially some abdominal pain and then some mild tachycardia. During all of her visits she relayed no signs or symptoms of hypovolemia other than the mild tachycardia. And through the day the pain actually dramatically improved and by the time the evening had come approximately 8:00 at night her pain was gone she was up ambulating without difficulty and voiced no complaints. Her initial hemoglobin yesterday morning was noted to be 8.3 and at approximately 4:00 the afternoon it was noted to drop to 7.8. As difficult say at that time with only a half gram hematoma loss at this was still equalizing out from her ectopic the night before work there were still some slow blood loss, but as she had no symptoms of hypovolemia and was tolerating a regular diet well and decision to monitor through the night and repeat CBC in the morning was made. This morning her hemoglobin is noted to be 6.6 and while she continues to be essentially asymptomatic with no dizziness. she is able to ambulate and sitting up in bed sitting up in bed without any feelings of dizziness or weakness. She has no shortness of breath and her heart is regular with minimal tachycardia at 104. Blood pressure this morning was approximate 110/70. Through the night she had some blood pressures in the 90s over 50s but this is well she was sleeping and she was easily arousable and had a pulse in the low 100s not indicating any significant compensation. That said, due to the large drop in hemoglobin and suspicion for some internal bleeding, we are going to return to the operating room and do a repeat exploratory laparotomy to try and stop the bleeding. She night did discuss that it is entirely possible that once were in if the bleeding has stopped we may not be able to find the source of the bleeding but due to such a large, almost 2 g drop in her hemoglobin over 24 hours I do not feel comfortable monitoring it any further and believe that surgical intervention to stop whatever bleeding is going on is needed. Risks and benefits of the surgery were reviewed with the patient in detail and all questions were answered for her prior to proceeding to the operating room. Vital signs again are stable and she is afebrile. Heart regular, lungs clear, extremities without pain. Abdomen remains soft with positive bowel sounds. Incision is otherwise intact. Assessment postop 81 with anemia Plan repeat exploratory laparotomy
[2018-08-16] MEDS ORDERED: SODIUM CHLORIDE 0.9% 500 ML 500 ML IV ONE ×2 (08:32→09:35)
[2018-08-16] MEDS ORDERED: PROPOFOL 10 MG/ML 20 ML VIAL IV ONE (08:48)
[2018-08-16] MEDS ORDERED: GLYCOPYRROLATE 0.2 MG/ML 2 ML VIAL ONE (08:48)
[2018-08-16] MEDS ORDERED: fentaNYL (PF) 50 MCG/ML 2 ML AMP ONE (08:48)
[2018-08-16] MEDS ORDERED: MIDAZOLAM 2 MG/2 ML VIAL ONE (08:48)
[2018-08-16] MEDS ORDERED: LIDOCAINE 1% INJ 10MG/ML (20 ML MDV) ONE (08:48)
[2018-08-16] MEDS ORDERED: SUCCINYLCHOLINE CHLORIDE 100 MG/5 ML SYR IV ONE (08:48)
[2018-08-16] MEDS ORDERED: HYDROmorphone (PF) 1 MG/ML ONE (08:48)
[2018-08-16] MEDS ORDERED: NEOSTIGMINE 1 MG/ML 10 ML VIAL ONE (08:48)
[2018-08-16] MEDS ORDERED: SODIUM CHLORIDE 0.9% 50 ML with ceFAZolin 2,000 MG IV ONE ×2 (09:01)
--- NOTE | 2018-08-16 09:54 | P.OP ---
Date of Procedure: 08/16/18 Preoperative Diagnosis: Postop anemia rule out hemorrhage Postoperative Diagnosis: Same Procedure(s) Performed: Exploratory laparotomy Anesthesia: EVAN Surgeon: Sean Castellanos Commission Broker #1: Ignacio Montgomery Estimated Blood Loss (ml): 30 Pathology: none sent Condition: stable Disposition: floor Operative Findings: Scant bloody fluid in the abdomen consistent with postop fluid collection no active bleeding was noted during the lifting of the pedicle there was a little separation of the pedicle and therefore 0 Vicryl suture was used reapproximate the tissues and as a precaution Surgicel foam was placed to obtain complete hemostasis. There were some small areas in the muscle layer that had a little bit of bleeding but nothing that would explain the nearly 2 g hemoglobin loss that she had from yesterday to today. Description of Procedure: Patient was taken to the operating suite where a general anesthetic was found be adequate. She was prepped and draped in the normal sterile fashion and placed in dorsal supine position. Initially a Pfannenstiel skin incision was made and this incision was carried through to underlying layer of the fascia with the second knife. Fascia was then nicked in midline with the sutures removed. Abdomen was then opened bowel moved out of the operative field and a self-retaining retractor placed. Patient was then placed in Trendelenburg position and bowel was completely moved out of the operative field. Uterus was then examined no active bleeding is noted anywhere there was a scant amount of bloody fluid in the pelvis consistent with postoperative changes with running down following irrigation after original surgery. The right fallopian tube had a clip there was attached no bleeding is noted from anywhere in this area. Cut with was then used to grasp the ovary and the left adnexal region was elevated. No real active bleeding was noted there was some oozing noted from near the pedicle due to lifting up the ovary therefore 0 Vicryl suture was used in a running fashion to obtain hemostasis. As her still small amount of oozing from the area and out of an abundance of caution Surgicel foam was placed to obtain complete hemostasis. Once this was accomplished we did watch the area for approximately 5 minutes and no further bleeding was noted were seen and there is no other blood or fluid in the pelvis at this time. The bowel packing was then removed and the omentum was examined there is no significant areas although there was some small oozing areas on the omentum consistent with placement of the [place]. These were cauterized and then more P0 lysis was done to completely separate the omentum from the small intestine which it appeared it might entangle with. Once this was completed there was one area of bleeding in the right rectus muscles which 0 Vicryl suture was used to obtain hemostasis with. Once all these things were completed fascial layer was identified elevated and closed with 0 Vicryl suture in a running locking fashion. 3-0 Vicryl was then used to reapproximate the subcuticular tissues. As I'm still not completely certain why she had such a huge drop in her hemoglobin Syd were placed as a precaution just in case we need to return to the operating room. Otherwise patient tolerated surgery very well and sponge lap, needle counts were all correct 2. She was then taken to the recovery room in stable and satisfactory condition.
[2018-08-16] MEDS ORDERED: HYDROmorphone 1 MG/ML 1 ML SYRINGE IVP ONE ×4 (10:05→10:38)
[2018-08-16] MEDS ORDERED: fentaNYL (PF) 50 MCG/ML 2 ML AMP IVP ONE ×2 (10:45→10:56)
[2018-08-16] MEDS ORDERED: NALOXONE 0.4 MG/ML 1 ML VIAL IV PRN (11:02)
[2018-08-16] MEDS: HYDROmorphone PCA 5 MG/25 ML SYRINGE IV PRN ×2 (11:54→22:01)
[2018-08-16] MEDS: SIMETHICONE 80 MG CHEWABLE PO SCH ×4 (13:51→22:44)
[2018-08-16] MEDS: NICOTINE 14MG/24HR PATCH TRANSDERM SCH (14:47)
[2018-08-16 16:34] LABS: Basophils % (A) 0 %; Eosinophils # (A) 0.1 k/uL (0-0.7); Eosinophils % (A) 1 %; HCT 24.9 % (34.0-46.0); Lymphocytes # (A) 3.7 k/uL (1.0-4.8); Lymphocytes % (A) 33 %; MCH 29.2 pg (25.0-35.0); MCHC 32.6 g/dL (31.0-37.0); MCV 89.6 fL (80.0-100.0); Mean Platelet Volume 6.8; Monocytes # (A) 0.5 k/uL (0-1.0); Monocytes % (A) 4 %; Neutrophils # (A) 6.9 k/uL (1.3-7.7); Neutrophils % (A) 60 %; Platelet Count 206 k/uL (150-450); RBC 2.78 m/uL (3.80-5.40); RDW 15.3 % (11.5-15.5); WBC 11.3 k/uL (3.8-10.6)
[2018-08-16 16:35] LABS: HGB 8.1 gm/dL (11.4-16.0)
[2018-08-16] MEDS: diphenhydrAMINE 50 MG CAP PO SCH (22:44)
[2018-08-17 05:48] LABS: Basophils % (A) 0 %; Eosinophils # (A) 0.1 k/uL (0-0.7); Eosinophils % (A) 1 %; HCT 25.1 % (34.0-46.0); HGB 8.4 gm/dL (11.4-16.0); Lymphocytes # (A) 3.5 k/uL (1.0-4.8); Lymphocytes % (A) 27 %; MCH 29.9 pg (25.0-35.0); MCHC 33.4 g/dL (31.0-37.0); MCV 89.5 fL (80.0-100.0); Mean Platelet Volume 7.4; Monocytes # (A) 0.6 k/uL (0-1.0); Monocytes % (A) 5 %; Neutrophils # (A) 8.3 k/uL (1.3-7.7); Neutrophils % (A) 65 %; Platelet Count 228 k/uL (150-450); RDW 15.4 % (11.5-15.5); WBC 12.7 k/uL (3.8-10.6)
[2018-08-17] MEDS: HYDROcodone/APAP 7.5-325MG 1 EACH TAB PO PRN ×3 (06:31→18:17)
[2018-08-17] MEDS: SIMETHICONE 80 MG CHEWABLE PO SCH ×4 (07:34→22:07)
[2018-08-17] MEDS: SENNOSIDES-DOCUSATE SODIUM 1 EACH TAB PO SCH ×2 (08:41→20:31)
--- NOTE | 2018-08-17 08:50 | P.PN ---
Progress Note - Text Progress Note Date: 08/17/18 Mónica is seen and evaluated this morning. She is ambulating and she is voiding. Overall she does appear to be doing well. Vital signs are currently stable and she is afebrile. Serial CBCs have shown a steady rise in her hemoglobin. It is at this time still unclear why her hemoglobin went from 7.8 to 6. 6/14 hour timeframe. Interim medicine has been consult an and we're awaiting their recommendations. All the questions are answered for her at this time and will plan to advance diet today and trying get her to ambulate a little better with expectation that if she is doing well she'll be able to go home tomorrow. Heart regular, lungs clear, extremities without pain. Abdomen is soft and nontender positive bowel sounds are noted. Assessment postop day 1 from reevaluation due to acute anemia with concern for blood loss anemia Plan continue current care.
[2018-08-17] MEDS: FERROUS SULFATE 325 MG TAB PO SCH (15:04)
[2018-08-17] MEDS: NICOTINE 14MG/24HR PATCH TRANSDERM SCH (15:04)
--- NOTE | 2018-08-17 20:08 | P.CONS ---
History of Present Illness - Reason for Consult Consult date: 08/17/18 Anemia and acute blood loss. Requesting physician: Sean Castellanos - Chief Complaint Ectopic post exploratory surgery, acute anemia, low hemoglobin, f - History of Present Illness 57-year-old female with no primary care physician who had ectopic in 2006 and has been doing well all along [facility] complaining of pelvic pain she was diagnosed subsequently with ectopic and has been having gross hemoperitoneum ultrasound. Patient was admitted to [facility] service and ended up going for laparoscopy surgery for salpingectomy and ectopic surgery done successfully with no major problem. Patient developed to have severe tiredness and fatigue on the 28 ended up having hemoglobin down 6.6. Patient had 1 unit of blood transfusion and was taken back to the OR and had exploratory surgery this time and had more repair done. Patient is more stable and doing well since and has been walking with no pain no further drop in hemoglobin her blood count remain above 8.4. She is known long-standing history of anemia and known to have factor S deficiency has not been on any medication lately. Review of Systems CONSTITUTIONAL: Well-developed no acute respiratory distress.mild pale EYES: No icterus sclerae, no conjunctivitis. EARS, NOSE, MOUTH, THROAT, and FACE: No sore throat, lymphadenopathy, carotid bruits or deformity. RESPIRATORY: No SOB cough or wheezes. CARDIOVASCULAR: No CP, Palpitation, PND, Orthopnea, or angina. GASTROINTESTINAL: No Abd pain, Nausea or vomiting, no Diarrhea or constipation, No GI Bleed, no distention or masses. GENITOURINARY: ectopic post surgery with no active bleed cur. INTEGUMENT/BREAST: Negative for any muscular injury with mild osteoarthritis.. HEMATOLOGIC/LYMPHATIC:no bleeding or purpura positive anemia MUSCULOSKELTAL: Negative for Myalgia or arthralgia. NEURLOGICAL: No LOC, Sz or syncope, blurred vision dizziness or abnormality.. BEHAVIORAL/PSYCH: Negative. ENDOCRINE: Negative. Past Medical History Past Medical History: Blood Disorder, Eye Disorder Additional Past Medical History / Comment(s): optic neuritis, multiple sclerosis ,profiency s disorder History of Any Multi-Drug Resistant Organisms: None Reported Past Surgical History: Appendectomy Additional Past Surgical History / Comment(s): ectopic Past Anesthesia/Blood Transfusion Reactions: No Reported Reaction Past Psychological History: Anxiety Smoking Status: Current every day smoker Past Alcohol Use History: None Reported Past Drug Use History: None Reported - Past Family History Father Family Medical History: No Reported History Medications and Allergies Home Medications Medication Instructions Recorded Confirmed Type Acetaminophen-Codeine 300-30mg 1 tab PO TID PRN 02/06/16 10/30/17 History [Tylenol w/codeine #3] Dextroamphetamine/Amphetamine 30 mg PO BID 10/30/17 10/30/17 History [Adderall] Gabapentin [Neurontin] 400 mg PO TID 10/30/17 10/30/17 History Ibuprofen [Motrin] 600 mg PO Q6HR PRN #40 day 10/30/17 Rx Allergies Allergy/AdvReac Type Severity Reaction Status Date / Time No Known Allergies Allergy Verified 08/14/18 22:29 Physical Exam Vitals: Vital Signs Temp Pulse Resp BP Pulse Ox 08/17/18 07:35 97.9 F 94 16 101/58 97 08/17/18 00:00 98.2 F 94 16 108/58 08/16/18 20:00 97.8 F 79 16 101/64 08/16/18 16:00 98.1 F 105 H 18 120/75 97 Intake and Output 08/16/18 08/17/18 08/17/18 22:59 06:59 14:59 Output Total 900 800 800 Balance -900 -800 -800 Output: Urine 900 800 800 Uretheral (Tinajero) 200 450 Other: # Voids 1 General Appearance: Alert, cooperative, no distress, appears stated age. Neck HEENT: Supple, no lymphadenopathy, no thyroid enlargement, no carotid bruits. Lungs: Clear to auscultation without crackles or wheezes no rhonchi, no deformity. Chest Wall: Chest wall normal expansion with deep inspiration no tenderness and no deformity was found on exam, no costochondral pain or discomfort. Heart: Regular rate and rhythm, S1, S2 normal, no murmur, rub or gallop. Back: Symmetric, no curvature, ROM normal, no CVA tenderness. Abdomen: soft but still runner at decreased bowel sound no rebound or rigidity. Extremities: Extremities normal, atraumatic, no cyanosis or edema. Pulses: 2+ and symmetric. Skin: Skin color, texture, tugor normal, no rashes or lesions. Neurologic: Alert oriented x3 cranial nerves II through XII intact, no motor deficit, no abnormal balance or gait. Results CBC & Chem 7: 08/17/18 05:24 08/14/18 22:25 Labs: Abnormal Lab Results - Last 24 Hours (Table) 08/14/18 08/16/18 08/17/18 Range/Units 22:25 16:24 05:24 WBC 11.3 H 12.7 H (3.8-10.6) k/uL RBC 2.78 L 2.80 L (3.80-5.40) m/uL Hgb 8.1 L D 8.4 L (11.4-16.0) gm/dL Hct 24.9 L 25.1 L (34.0-46.0) % Neutrophils # 8.3 H (1.3-7.7) k/uL Crossmatch See Detail Assessment and Plan Plan: 1 acute iron and nauseous anemia: Most likely bleeding from her ectopic , patient had 1 unit of blood continue current management she ended up having exploratory surgery and repair and done well since since her transfusion no further drop in hemoglobin. Patient will have iron supplement twice a day for now and repeat another CBC by tomorrow, iron study or 13 does not have much evaluated this point specially after the transfusion and with acute illness. 2 history of protein S deficiency: Has not been on any medication she was on Xarelto last time took over a year ago. Patient will have a precaution after surgery including knee-high PRISCILLA hose and early mobilization to lower the heart is having a blood clot. Anticoagulation at this point is contraindication specially with her anemia. 3 history of multiple sclerosis: Has not been on any medication lately to follow with her neurologist after discharge. 4 chronic history of neuropathy: Has been on gabapentin which has not taking in the last few months. 5 mild nausea: Remain on Zofran an as-needed basis. 6 nicotine dependency: Patient was started on nicotine patch continue medication for now. Dr. Castellanos thank you very much for the consult if I can be any further help to please let me know
[2018-08-17] MEDS: diphenhydrAMINE 50 MG CAP PO SCH (22:07)
[2018-08-18] MEDS: HYDROcodone/APAP 7.5-325MG 1 EACH TAB PO PRN ×3 (00:04→14:20)
[2018-08-18] MEDS: FERROUS SULFATE 325 MG TAB PO SCH (08:27)
[2018-08-18] MEDS: SENNOSIDES-DOCUSATE SODIUM 1 EACH TAB PO SCH (08:29)
[2018-08-18] MEDS: SIMETHICONE 80 MG CHEWABLE PO SCH (08:32)
[2018-08-18 12:05] VITALS: BP 105/61; PULSE 102; RESP 18; TEMP 98.1
--- NOTE | 2018-08-18 12:45 | P.DS ---
Providers Date of admission: 08/14/18 23:04 Expected date of discharge: 08/18/18 Attending physician: Sean Castellanos Consults: 08/15/18 00:42 Consult Physician Routine Consulting Provider: Reza Walters Consult Reason/Comments: medical management Do you want consulting provider notified?: Yes Primary care physician: Stated None Hospital Course: Mónica is doing very well postop day 2. She is ambulating, voiding, and she is tolerating her diet. She is passing flatus although she is not have bowel movement. All questions are answered for her at this time. She is requesting discharge to home. We'll plan to remove coreen today and apply Steri-Strips. Prescription for Motrin and Merino performed reported to her pharmacy. On physical exam vital signs are stable and afebrile. Heart regular, lungs clear, extremities without pain. Abdomen soft nontender positive bowel sounds are noted with an incision that is clean dry and intact. Extremities are without pain. Assessment postop day 2. Plan follow-up in 1 week. Patient Condition at Discharge: Good Plan - Discharge Summary New Discharge Prescriptions: New HYDROcodone/APAP 5-325MG [Merino 5-325] 1 tab PO Q4HR PRN #30 tab PRN Reason: Pain Ibuprofen [Motrin] 600 mg PO Q6HR PRN #30 tab PRN Reason: Pain No Action Acetaminophen-Codeine 300-30mg [Tylenol w/codeine #3] 1 tab PO TID PRN PRN Reason: Pain Gabapentin [Neurontin] 400 mg PO TID Dextroamphetamine/Amphetamine [Adderall] 30 mg PO BID Ibuprofen [Motrin] 600 mg PO Q6HR PRN #40 day PRN Reason: Pain Discharge Medication List Acetaminophen-Codeine 300-30mg [Tylenol w/codeine #3] 1 tab PO TID PRN 02/06/16 [History] Dextroamphetamine/Amphetamine [Adderall] 30 mg PO BID 10/30/17 [History] Gabapentin [Neurontin] 400 mg PO TID 10/30/17 [History] Ibuprofen [Motrin] 600 mg PO Q6HR PRN #40 day 10/30/17 [Rx] HYDROcodone/APAP 5-325MG [Merino 5-325] 1 tab PO Q4HR PRN #30 tab 08/18/18 [Rx] Ibuprofen [Motrin] 600 mg PO Q6HR PRN #30 tab 08/18/18 [Rx] Follow up Appointment(s)/Referral(s): None,Stated [Primary Care Provider] - 1-2 days Activity/Diet/Wound Care/Special Instructions: No heavy lifting, limit stairs and driving, and pelvic rest. If any high temperatures, heavy bleeding, or severe pain call my office Discharge Disposition: HOME SELF-CARE
== END 2018-08-18 14:35 | disposition home or self-care (01) | DRG 817 ==
LOC: EC 22:07 → 4FBP 23:04 → OBSVTOIN 23:04 → EC 23:18
PROVIDERS: ADMIT Obstetrics & Gynecology; ATTEND Obstetrics & Gynecology
PROC: 30233N1 Transfusion of Nonautologous Red Blood Cells into Peripheral Vein, Percutaneous Approach (ICD-10-PCS; principal; 2018-08-14 23:15)
PROC: 0UT60ZZ Resection of Left Fallopian Tube, Open Approach (ICD-10-PCS; 2018-08-15)
PROC: 10T20ZZ Resection of Products of Conception, Ectopic, Open Approach (ICD-10-PCS; 2018-08-15)
PROC: 0UL50CZ Occlusion of Right Fallopian Tube with Extraluminal Device, Open Approach (ICD-10-PCS; 2018-08-15)
PROC: 0W3J0ZZ Control Bleeding in Pelvic Cavity, Open Approach (ICD-10-PCS; 2018-08-16)
DX: O00.102 Left tubal pregnancy without intrauterine pregnancy (principal); K66.1 Hemoperitoneum; D62 Acute posthemorrhagic anemia; O99.350 Diseases of the nervous system complicating pregnancy, unspecified trimester; G35 Multiple sclerosis; M79.7 Fibromyalgia; F41.9 Anxiety disorder, unspecified; F17.200 Nicotine dependence, unspecified, uncomplicated; K66.0 Peritoneal adhesions (postprocedural) (postinfection); O99.340 Other mental disorders complicating pregnancy, unspecified trimester; O99.89 Other specified diseases and conditions complicating pregnancy, childbirth and the puerperium; O99.330 Smoking (tobacco) complicating pregnancy, unspecified trimester; O99.019 Anemia complicating pregnancy, unspecified trimester; Z87.59 Personal history of other complications of pregnancy, childbirth and the puerperium; Z79.899 Other long term (current) drug therapy; Z30.2 Encounter for sterilization
CPT/HCPCS: 36415; 51702; 74177; 76705; 76815; 80051; 80053; 82330; 84702; 85025; 85027; 85384; 85610; 85730; 86850; 86870; 86880; 86900; 86901; 86902; 86920; 88305; 96365; 96375; 99291

== ENCOUNTER 2018-10-28 14:32 | Emergency (ER) | payer OTHER ==
[2018-10-28 14:44] VITALS: TEMP 97.9
[2018-10-28 15:09] LABS: Basophils # (A) 0.1 k/uL (0-0.2); Basophils % (A) 1 %; Eosinophils # (A) 0.3 k/uL (0-0.7); Eosinophils % (A) 4 %; HCT 40.9 % (34.0-46.0); HGB 12.7 gm/dL (11.4-16.0); Hypochromasia Slight; Lymphocytes # (A) 2.6 k/uL (1.0-4.8); Lymphocytes % (A) 31 %; MCH 27.9 pg (25.0-35.0); MCHC 31.1 g/dL (31.0-37.0); MCV 89.8 fL (80.0-100.0); Mean Platelet Volume 7.5; Monocytes # (A) 0.4 k/uL (0-1.0); Monocytes % (A) 4 %; Neutrophils # (A) 4.9 k/uL (1.3-7.7); Neutrophils % (A) 58 %; Platelet Count 304 k/uL (150-450); RBC 4.55 m/uL (3.80-5.40); RDW 14.1 % (11.5-15.5); WBC 8.5 k/uL (3.8-10.6)
[2018-10-28 15:18] LABS: ALT 29 U/L (9-52); AST 16 U/L (14-36); Albumin 4.1 g/dL (3.5-5.0); Alkaline Phosphatase 78 U/L (38-126); Amylase 43 U/L (30-110); Anion Gap 9 mmol/L; Blood Urea Nitrogen 10 mg/dL (7-17); Calcium 9.2 mg/dL (8.4-10.2); Carbon Dioxide 22 mmol/L (22-30); Chloride 109 mmol/L (98-107); Glucose 100 mg/dL (74-99); Lipase 108 U/L (23-300); Potassium 4.4 mmol/L (3.5-5.1); Sodium 140 mmol/L (137-145); Total Bilirubin 0.2 mg/dL (0.2-1.3)
[2018-10-28 17:35] LABS: Amorphous Sediment,Urine Occasional /hpf; Appearance,Urine Cloudy (Clear); Bilirubin,Urine Negative (Negative); Blood,Urine Negative (Negative); Color,Urine Yellow; Glucose,Urine (UA) Negative (Negative); Ketones,Urine Negative (Negative); Leukocyte Esterase,Urine Moderate (Negative); Mucus,Urine Occasional /hpf; Nitrite,Urine Negative (Negative); PH, Urine 6.5 (5.0-8.0); Protein,Urine Negative (Negative); RBC,Urine 7 /hpf (0-5); Squamous Epithelial Cell,Urine 24 /hpf (0-4); Urobilinogen,Urine <2.0 mg/dL (<2.0); WBC,Urine 50 /hpf (0-5)
[2018-10-28 17:48] VITALS: BP 108/66; PULSE 82; RESP 16
[2018-10-28] MEDS ORDERED: NITROFURANTOIN MONOHYD/M-CRYST 100 MG CAP PO STA (17:50)
--- NOTE | 2018-10-28 18:17 | ED ---
Abdominal Pain HPI - General Chief Complaint: Abdominal Pain Stated Complaint: Hernia Time Seen by Provider: 10/28/18 17:15 Source: patient, RN notes reviewed, old records reviewed Mode of arrival: ambulatory Limitations: no limitations - History of Present Illness Initial Comments: 38-year-old female presents emergency Department today with complaints of abdominal pain for the past 6 weeks. Patient at this time states she [facility]. She is told she has a ventral hernia. Patient states that it feels like it's difficult for her to eat. Patient states that she will try to follow-up with primary care doctors and surgeons but no one would take her at this time due to lack of ins urance. Patient states that she has been able to eat small meals. Upon my examination Patient she's laying on the bed. He eating snacks with her daughters. Patient states that she's had no recent vomiting. - Related Data Home Medications Medication Instructions Recorded Confirmed Acetaminophen [Tylenol Extra 500 mg PO TID PRN 10/28/18 10/28/18 Strength] Famotidine [Pepcid] 20 mg PO DAILY PRN 10/28/18 10/28/18 Previous Rx's Medication Instructions Recorded Nitrofurantoin Monohyd/M-Cryst 100 mg PO Q12HR #14 cap 10/28/18 [Macrobid] Allergies Allergy/AdvReac Type Severity Reaction Status Date / Time No Known Allergies Allergy Verified 10/28/18 17:40 Review of Systems ROS Statement: Those systems with pertinent positive or pertinent negative responses have been documented in the HPI. ROS Other: All systems not noted in ROS Statement are negative. Past Medical History Past Medical History: Blood Disorder, Eye Disorder Additional Past Medical History / Comment(s): optic neuritis, multiple sclerosis,profiency s disorder History of Any Multi-Drug Resistant Organisms: None Reported Past Surgical History: Appendectomy Additional Past Surgical History / Comment(s): ectopic Past Anesthesia/Blood Transfusion Reactions: No Reported Reaction Past Psychological History: Anxiety Smoking Status: Current every day smoker Past Alcohol Use History: None Reported Past Drug Use History: None Reported - Past Family History Father Family Medical History: No Reported History General Exam - General Exam Comments Initial Comments: This is a 38-year-old female. Alert and oriented. Patient appears in no signif icant distress. Limitations: no limitations General appearance: alert, in no apparent distress Head exam: Present: atraumatic, normocephalic, normal inspection Eye exam: Present: normal appearance, PERRL, EOMI. Absent: scleral icterus, conjunctival injection, periorbital swelling ENT exam: Present: normal exam, mucous membranes moist Neck exam: Present: normal inspection. Absent: tenderness, meningismus, lymphadenopathy Respiratory exam: Present: normal lung sounds bilaterally. Absent: respiratory distress, wheezes, rales, rhonchi, stridor Cardiovascular Exam: Present: regular rate, normal rhythm, normal heart sounds. Absent: systolic murmur, diastolic murmur, rubs, gallop, clicks GI/Abdominal exam: Present: soft, normal bowel sounds. Absent: distended, tende rness, guarding, rebound, rigid Extremities exam: Present: normal inspection, full ROM, normal capillary refill. Absent: tenderness, pedal edema, joint swelling, calf tenderness Back exam: Present: normal inspection Neurological exam: Present: alert, oriented X3, CN II-XII intact Psychiatric exam: Present: normal affect, normal mood Skin exam: Present: warm, dry, intact, normal color. Absent: rash Course Vital Signs 10/28/18 10/28/18 14:41 17:47 Temperature 97.9 F Pulse Rate 93 82 Respiratory 20 16 Rate Blood Pressure 122/84 108/66 O2 Sat by Pulse 98 97 Oximetry Medical Decision Making - Medical Decision Making Patient is a 38-year-old female presents emergency department today complaining of abdominal pain for the past 6 weeks. She reports she had a computed tomography scan yesterday at [facility] was diagnosed with vent ral hernia. Her abdomen is soft nontender. No palpable hernia or signs of incarceration. She was eating chips on the bed when I went to examine the Patient. Asians labwork was reviewed and otherwise unremarkable. Urinalysis does show signs of infection. Patient restarted on antibiotics. I discussed this time with her computed tomography scan showing ventral hernia and no other complaints that she should follow-up with a surgeon. Discussed strict return parameters and all questions answered and return parameters were discussed. - Lab Data Result diagrams: 10/28/18 15:00 10/28/18 15:00 Lab Results 10/28/18 10/28/18 10/28/18 Range/Units 15:00 15:00 17:00 WBC 8.5 (3.8-10.6) k/uL RBC 4.55 (3.80-5.40) m/uL Hgb 12.7 (11.4-16.0) gm/dL Hct 40.9 (34.0-46.0) % MCV 89.8 (80.0-100.0) fL MCH 27.9 (25.0-35.0) pg MCHC 31.1 (31.0-37.0) g/dL RDW 14.1 (11.5-15.5) % Plt Count 304 (150-450) k/uL Neutrophils % 58 % Lymphocytes % 31 % Monocytes % 4 % Eosinophils % 4 % Basophils % 1 % Neutrophils # 4.9 (1.3-7.7) k/uL Lymphocytes # 2.6 (1.0-4.8) k/uL Monocytes # 0.4 (0-1.0) k/uL Eosinophils # 0.3 (0-0.7) k/uL Basophils # 0.1 (0-0.2) k/uL Hypochromasia Slight Sodium 140 (137-145) mmol/L Potassium 4.4 (3.5-5.1) mmol/L Chloride 109 H (98-107) mmol/L Carbon Dioxide 22 (22-30) mmol/L Anion Gap 9 mmol/L BUN 10 (7-17) mg/dL Creatinine 0.57 (0.52-1.04) mg/dL Est GFR (CKD-EPI)AfAm >90 (>60 ml/min/1.73 sqM) Est GFR (CKD-EPI)NonAf >90 (>60 ml/min/1.73 sqM) Glucose 100 H (74-99) mg/dL Calcium 9.2 (8.4-10.2) mg/dL Total Bilirubin 0.2 (0.2-1.3) mg/dL AST 16 (14-36) U/L ALT 29 (9-52) U/L Alkaline Phosphatase 78 (38-126) U/L Total Protein 7.0 (6.3-8.2) g/dL Albumin 4.1 (3.5-5.0) g/dL Amylase 43 (30-110) U/L Lipase 108 (23-300) U/L Urine Color Yellow Urine Appearance Cloudy H (Clear) Urine pH 6.5 (5.0-8.0) Ur Specific [place] 1.020 (1.001-1.035) Urine Protein Negative (Negative) Urine Glucose (UA) Negative (Negative) Urine Ketones Negative (Negative) Urine Blood Negative (Negative) Urine Nitrite Negative (Negative) Urine Bilirubin Negative (Negative) Urine Urobilinogen <2.0 (<2.0) mg/dL Ur Leukocyte Esterase Moderate H (Negative) Urine RBC 7 H (0-5) /hpf Urine WBC 50 H (0-5) /hpf Ur Squamous Epith Cells 24 H (0-4) /hpf Amorphous Sediment Occasional H (None) /hpf Urine Mucus Occasional H (None) /hpf Disposition Clinical Impression: UTI (urinary tract infection), Ventral hernia Disposition: HOME SELF-CARE Condition: Good Instructions (If sedation given, give patient instructions): Urinary Tract Infection in Women (ED) Additional Instructions: Patient advised to follow-up with your primary care doctor. Patient should return to the emergency department if any alarming signs or symptoms occur. Recommended follow-up with outpatient surgery. Prescriptions: Nitrofurantoin Monohyd/M-Cryst [Macrobid] 100 mg PO Q12HR #14 cap Is patient prescribed a controlled substance at d/c from ED?: No Referrals: None,Stated [Primary Care Provider] - 1-2 days Miller Fink MD [STAFF PHYSICIAN] - 1-2 days Obdulia Spencer MD [STAFF PHYSICIAN] - 1-2 days Trang Nava MD [STAFF PHYSICIAN] - 1-2 days Time of Disposition: 18:15
== END 2018-10-28 18:36 | disposition home or self-care (01) ==
LOC: EC 14:32
DX: K43.9 Ventral hernia without obstruction or gangrene (principal); N39.0 Urinary tract infection, site not specified; F17.200 Nicotine dependence, unspecified, uncomplicated; Z90.49 Acquired absence of other specified parts of digestive tract
CPT/HCPCS: 36415; 80053; 81001; 82150; 83690; 85025; 99284

== ENCOUNTER 2019-06-23 11:10 | Inpatient (IN) | payer OTHER ==
[2019-06-23] MEDS ORDERED: ACETAMINOPHEN TAB 500 MG TAB PO STA (11:29)
--- NOTE | 2019-06-23 11:32 | ED ---
General Adult HPI - General Chief complaint: Fever Stated complaint: Chills Time Seen by Provider: 06/23/19 11:17 Source: patient, EMS, RN notes reviewed Mode of arrival: EMS Limitations: no limitations - History of Present Illness Initial comments: Patient is a pleasant 38-year-old female presenting to the emergency department with chills. Patient checked her temperature twice at home however did not have a fever. Patient states she feels achy all over and has been having chills since 4 AM. Patient also noticed a small bump in her left posterior neck that is somewhat tender. No sore throat however she feels dry. Patient has been urinating frequently. Patient was diagnosed with MRSA on her chin at [facility] 8 days ago and has been on pink a mycin. Patient is not on any immunosuppressants. - Related Data Home Medications Medication Instructions Recorded Confirmed Acetaminophen [Tylenol Extra 500 mg PO TID PRN 10/28/18 10/28/18 Strength] Famotidine [Pepcid] 20 mg PO DAILY PRN 10/28/18 10/28/18 Previous Rx's Medication Instructions Recorded Nitrofurantoin Monohyd/M-Cryst 100 mg PO Q12HR #14 cap 10/28/18 [Macrobid] Allergies Allergy/AdvReac Type Severity Reaction Status Date / Time No Known Allergies Allergy Verified 10/28/18 17:40 Review of Systems ROS Statement: Those systems with pertinent positive or pertinent negative responses have been documented in the HPI. ROS Other: All systems not noted in ROS Statement are negative. Constitutional: Reports: chills Eyes: Denies: eye pain ENT: Denies: ear pain Respiratory: Denies: cough, dyspnea Cardiovascular: Denies: chest pain Endocrine: Reports: fatigue Gastrointestinal: Denies: abdominal pain Genitourinary: Reports: urgency, frequency Musculoskeletal: Denies: back pain Skin: Reports: rash (Improving rash on chin) Neurological: Denies: weakness Past Medical History Past Medical History: Blood Disorder, Eye Disorder, Rheumatoid Arthritis (RA) Additional Past Medical History / Comment(s): optic neuritis, multiple sclerosis,profiency s disorder History of Any Multi-Drug Resistant Organisms: None Reported Past Surgical History: Appendectomy Additional Past Surgical History / Comment(s): ectopic Past Anesthesia/Blood Transfusion Reactions: No Reported Reaction Past Psychological History: Anxiety Smoking Status: Current every day smoker Past Alcohol Use History: None Reported Past Drug Use History: None Reported - Past Family History Father Family Medical History: No Reported History General Exam Limitations: no limitations General appearance: alert, in no apparent distress Head exam: Present: normocephalic Eye exam: Present: normal appearance, PERRL ENT exam: Present: normal oropharynx Neck exam: Present: lymphadenopathy ((Posterior cervical lymphadenopathy that is tender) Respiratory exam: Present: normal lung sounds bilaterally Cardiovascular Exam: Present: regular rate, normal rhythm GI/Abdominal exam: Present: soft. Absent: tenderness Extremities exam: Present: normal inspection, full ROM. Absent: calf tenderness Neurological exam: Present: alert Psychiatric exam: Present: normal affect, normal mood Skin exam: Present: rash (Chin, more so on the left side with mild erythema. No fluctuance.) Course Vital Signs 06/23/19 11:14 Temperature 100.2 F H Pulse Rate 97 Respiratory 22 Rate Blood Pressure 132/92 O2 Sat by Pulse 100 Oximetry EKG Findings - EKG Comments: EKG Findings:: Sinus tachycardia 108. OK 122. QRS 80. QT 312. QTC 418. Normal axis. Normal QRS. Nonspecific ST-T. Medical Decision Making - Medical Decision Making There is concern with new-onset fever on a patient with recurrent cellulitis of the chin and already on vancomycin. Patient does not meet sepsis criteria at this time. Case was discussed in detail with Dr. Humphrey, who will admit for Dr. Bowles. ID consult. Patient states she has seen both Dr. Paul and Dr. Coelho. - Lab Data Result diagrams: 06/23/19 12:00 06/23/19 12:00 Lab Results 06/23/19 06/23/19 06/23/19 Range/Units 12:00 12:00 12:00 WBC 8.3 (3.8-10.6) k/uL RBC 4.06 (3.80-5.40) m/uL Hgb 12.3 (11.4-16.0) gm/dL Hct 37.0 (34.0-46.0) % MCV 91.1 (80.0-100.0) fL MCH 30.2 (25.0-35.0) pg MCHC 33.2 (31.0-37.0) g/dL RDW 13.1 (11.5-15.5) % Plt Count 273 (150-450) k/uL Neutrophils % 88 % Lymphocytes % 6 % Monocytes % 2 % Eosinophils % 3 % Basophils % 0 % Neutrophils # 7.4 (1.3-7.7) k/uL Lymphocytes # 0.5 L (1.0-4.8) k/uL Monocytes # 0.1 (0-1.0) k/uL Eosinophils # 0.2 (0-0.7) k/uL Basophils # 0.0 (0-0.2) k/uL PT (9.0-12.0) sec INR (<1.2) APTT (22.0-30.0) sec Sodium 138 (137-145) mmol/L Potassium 4.2 (3.5-5.1) mmol/L Chloride 104 (98-107) mmol/L Carbon Dioxide 21 L (22-30) mmol/L Anion Gap 13 mmol/L BUN 18 H (7-17) mg/dL Creatinine 0.78 (0.52-1.04) mg/dL Est GFR (CKD-EPI)AfAm >90 (>60 ml/min/1.73 sqM) Est GFR (CKD-EPI)NonAf >90 (>60 ml/min/1.73 sqM) Glucose 83 (74-99) mg/dL Plasma Lactic Acid Erik 1.2 (0.7-2.0) mmol/L Calcium 9.5 (8.4-10.2) mg/dL Total Bilirubin 0.4 (0.2-1.3) mg/dL AST 28 (14-36) U/L ALT 30 (9-52) U/L Alkaline Phosphatase 104 (38-126) U/L Total Protein 7.8 (6.3-8.2) g/dL Albumin 4.3 (3.5-5.0) g/dL Urine Color Urine Appearance (Clear) Urine pH (5.0-8.0) Ur Specific [place] (1.001-1.035) Urine Protein (Negative) Urine Glucose (UA) (Negative) Urine Ketones (Negative) Urine Blood (Negative) Urine Nitrite (Negative) Urine Bilirubin (Negative) Urine Urobilinogen (<2.0) mg/dL Ur Leukocyte Esterase (Negative) Urine RBC (0-5) /hpf Urine WBC (0-5) /hpf Ur Squamous Epith Cells (0-4) /hpf Urine Mucus (None) /hpf Influenza Type A RNA (Not Detectd) Influenza Type B (PCR) (Not Detectd) 06/23/19 06/23/19 06/23/19 Range/Units 12:00 12:00 12:09 WBC (3.8-10.6) k/uL RBC (3.80-5.40) m/uL Hgb (11.4-16.0) gm/dL Hct (34.0-46.0) % MCV (80.0-100.0) fL MCH (25.0-35.0) pg MCHC (31.0-37.0) g/dL RDW (11.5-15.5) % Plt Count (150-450) k/uL Neutrophils % % Lymphocytes % % Monocytes % % Eosinophils % % Basophils % % Neutrophils # (1.3-7.7) k/uL Lymphocytes # (1.0-4.8) k/uL Monocytes # (0-1.0) k/uL Eosinophils # (0-0.7) k/uL Basophils # (0-0.2) k/uL PT 9.6 (9.0-12.0) sec INR 0.9 (<1.2) APTT 28.2 (22.0-30.0) sec Sodium (137-145) mmol/L Potassium (3.5-5.1) mmol/L Chloride (98-107) mmol/L Carbon Dioxide (22-30) mmol/L Anion Gap mmol/L BUN (7-17) mg/dL Creatinine (0.52-1.04) mg/dL Est GFR (CKD-EPI)AfAm (>60 ml/min/1.73 sqM) Est GFR (CKD-EPI)NonAf (>60 ml/min/1.73 sqM) Glucose (74-99) mg/dL Plasma Lactic Acid Erik (0.7-2.0) mmol/L Calcium (8.4-10.2) mg/dL Total Bilirubin (0.2-1.3) mg/dL AST (14-36) U/L ALT (9-52) U/L Alkaline Phosphatase (38-126) U/L Total Protein (6.3-8.2) g/dL Albumin (3.5-5.0) g/dL Urine Color Light Yellow Urine Appearance Clear (Clear) Urine pH 6.0 (5.0-8.0) Ur Specific [place] 1.014 (1.001-1.035) Urine Protein Negative (Negative) Urine Glucose (UA) Negative (Negative) Urine Ketones Trace H (Negative) Urine Blood Small H (Negative) Urine Nitrite Negative (Negative) Urine Bilirubin Negative (Negative) Urine Urobilinogen <2.0 (<2.0) mg/dL Ur Leukocyte Esterase Negative (Negative) Urine RBC 2 (0-5) /hpf Urine WBC 1 (0-5) /hpf Ur Squamous Epith Cells 1 (0-4) /hpf Urine Mucus Rare H (None) /hpf Influenza Type A RNA Not Detected (Not Detectd) Influenza Type B (PCR) Not Detected (Not Detectd) Disposition Clinical Impression: Cellulitis of chin Disposition: ADMITTED IP TO THIS HOSP Is patient prescribed a controlled substance at d/c from ED?: No Referrals: Davion Bowles DO [Primary Care Provider] - 1-2 days Decision Time: 13:21
[2019-06-23 12:10] LABS: Basophils % (A) 0 %; Eosinophils # (A) 0.2 k/uL (0-0.7); Eosinophils % (A) 3 %; HGB 12.3 gm/dL (11.4-16.0); Lymphocytes # (A) 0.5 k/uL (1.0-4.8); Lymphocytes % (A) 6 %; MCH 30.2 pg (25.0-35.0); MCHC 33.2 g/dL (31.0-37.0); MCV 91.1 fL (80.0-100.0); Mean Platelet Volume 6.2; Monocytes # (A) 0.1 k/uL (0-1.0); Monocytes % (A) 2 %; Neutrophils # (A) 7.4 k/uL (1.3-7.7); Neutrophils % (A) 88 %; Platelet Count 273 k/uL (150-450); RBC 4.06 m/uL (3.80-5.40); RDW 13.1 % (11.5-15.5); WBC 8.3 k/uL (3.8-10.6)
[2019-06-23 12:25] LABS: INR 0.9 (<1.2); Partial Thromboplastin Time 28.2 sec (22.0-30.0); Prothrombin Time 9.6 sec (9.0-12.0)
--- NOTE | 2019-06-23 12:29 | XR ---
EXAMINATION TYPE: XR chest 2V DATE OF EXAM: 06/23/2019 COMPARISON: 10/30/2017 HISTORY: Fever of unknown origin TECHNIQUE: Frontal and lateral views of the chest are obtained. FINDINGS: There is no focal air space opacity, pleural effusion, or pneumothorax seen. Nodular dens ities overlying the lateral sixth and seventh ribs could represent healing rib fractures or pleural t hickening. Rib series could confirm healing rib fractures. Left-sided PICC terminates in the distal s uperior vena cava. The cardiac silhouette size is within normal limits. The osseous structures are intact. IMPRESSION: 1. No acute cardiopulmonary process. 2. Probable healing posterior lateral rib fractures of ribs 6 and 7 on the right versus pleural thick ening. Rib series x-rays could confirm healing rib fractures.
[2019-06-23 12:32] LABS: Appearance,Urine Clear (Clear); Bilirubin,Urine Negative (Negative); Blood,Urine Small (Negative); Color,Urine Light Yellow; Glucose,Urine (UA) Negative (Negative); Ketones,Urine Trace (Negative); Leukocyte Esterase,Urine Negative (Negative); Mucus,Urine Rare /hpf; Nitrite,Urine Negative (Negative); Protein,Urine Negative (Negative); RBC,Urine 2 /hpf (0-5); Specific Gravity,Urine 1.014 (1.001-1.035); Squamous Epithelial Cell,Urine 1 /hpf (0-4); Urobilinogen,Urine <2.0 mg/dL (<2.0)
[2019-06-23 12:49] LABS: ALT 30 U/L (9-52); AST 28 U/L (14-36); African American GFR (CKD) >90 (>60 ml/min/1.73 sqM); Albumin 4.3 g/dL (3.5-5.0); Alkaline Phosphatase 104 U/L (38-126); Anion Gap 13 mmol/L; Blood Urea Nitrogen 18 mg/dL (7-17); Calcium 9.5 mg/dL (8.4-10.2); Carbon Dioxide 21 mmol/L (22-30); Chloride 104 mmol/L (98-107); Glucose 83 mg/dL (74-99); Non-African American GFR(CKD) >90 (>60 ml/min/1.73 sqM); Potassium 4.2 mmol/L (3.5-5.1); Sodium 138 mmol/L (137-145); Total Bilirubin 0.4 mg/dL (0.2-1.3); Total Protein 7.8 g/dL (6.3-8.2)
[2019-06-23] MEDS: SODIUM CHLORIDE 0.9% 1,000 ML IV SCH ×2 (13:10→18:52)
[2019-06-23] MEDS: SODIUM CHLORIDE 0.9% 500 ML 500 ML IV SCH ×2 (13:12→13:13)
[2019-06-23] MEDS ORDERED: AMPICILLIN-SULBACTAM 3 GM in SODIUM CHLORIDE 0.9% 100 ML IVPB STA (13:21)
[2019-06-23] MEDS ORDERED: NALOXONE 0.4 MG/ML 1 ML VIAL IV PRN (13:22)
[2019-06-23] MEDS ORDERED: VANCOMYCIN IV PER PHARMACY 1 EACH MISC MISCELLANE PRN (13:22)
[2019-06-23] MEDS ORDERED: VANCOMYCIN 1,250 MG in SODIUM CHLORIDE 0.9% 250 ML IVPB ONE (13:30)
[2019-06-23] MEDS ORDERED: KETOROLAC 30 MG/ML 1 ML VIAL IVP STA (16:06)
[2019-06-23] MEDS: AMPICILLIN-SULBACTAM 1.5 GM in SODIUM CHLORIDE 0.9% 50 ML IVPB SCH ×2 (18:51→23:50)
[2019-06-23] MEDS: KETOROLAC 30 MG/ML 1 ML VIAL IVP PRN (21:16)
[2019-06-23] MEDS: ACETAMINOPHEN TAB 325 MG TAB PO PRN (21:20)
[2019-06-23] MEDS: VANCOMYCIN 1,250 MG in SODIUM CHLORIDE 0.9% 250 ML IVPB SCH (21:20)
[2019-06-23] MEDS ORDERED: LORazepam 0.5 MG TAB PO STA (22:05)
--- NOTE | 2019-06-23 22:52 | P.HPIM ---
History of Present Illness H&P Date: 06/23/19 Chief Complaint: Chills History of presenting complaint: This is a 38-year-old patient who follows with Dr. Mary Bowles/arie KELLOGG. Patient was just recently admitted at [facility] under Dr. Renetta Qureshi, where she presented with the pimples that progressed to become abscess on the chin extending to the face. It was drained and blood cultures were posit alem for MRSA. Patient was discharged on June 21 with IV vancomycin. Getting 450 mg every 8 hours. The chin is significantly improved. There is some local tenderness and discomfort. Patient denies any urinary symptoms. Patient is on her menstrual period. Has a bowel movement every 10-12 days. Slight cough. Patient also has a history of MS. Has stopped following with the neurologist because she felt to not getting cared for. 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 Denies use of recreational drugs. Not employed. Lives with mother and her children Family history: Reviewed, noncontributory to presentation Physical examination: VITAL SIGNS: Heart rate and 2.9, 115, 20, 100/61, 100% room air GENERAL: BMI 26.1, laying in bed, a bit restless. EYES: Pupils equal. Conjunctiva normal. HEENT: External appearance of nose and ears normal, oral cavity grossly normal redness(, prominence on the chin some local tenderness. NECK: JVD not raised; masses not palpable. HEART: First and second heart sounds are normal; no edema. LUNGS: Respiratory rate normal; mild wheezing. ABDOMEN: Soft, nontender, liver spleen not palpable, no masses palpable. PSYCH: [Alert and oriented x3; mood and affect very anxious l. NEUROLOGICAL: Cranial nerves grossly intact; no facial asymmetry, power and sensation grossly intact. LYMPHATICS: No lymph nodes palpable in the axilla and neck INVESTIGATIONS, reviewed in the clinical context: White count 8.3 hemoglobin 12.3 progression 4.2 creatinine 0.78 Patient's blood cultures at [facility] were positive for MRSA Assessment: -This is a patient who was at [facility] recently for about a week and had an abscess of the chin that was drained the blood cultures positive for MRSA. Patient was discharged on June 21 IV vancomycin, 50 mg every 8 for 10 days. Patient admitted with further fevers. The chin abscess is actually clinically looking better. 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 ID is consulted. We'll also order 2-D echocardiogram. Blood cultures were drawn. Nicotine patch will be given. Past Medical History Past Medical History: Blood Disorder, Eye Disorder, Rheumatoid Arthritis (RA) Additional Past Medical History / Comment(s): optic neuritis, multiple sclerosis,profiency s disorder, found in previous medical chart aortic calcification History of Any Multi-Drug Resistant Organisms: None Reported Past Surgical History: Appendectomy Additional Past Surgical History / Comment(s): ectopic (2) Past Anesthesia/Blood Transfusion Reactions: No Reported Reaction Past Psychological History: Anxiety Smoking Status: Current every day smoker Past Alcohol Use History: None Reported Past Drug Use History: None Reported - Past Family History Father Family Medical History: No Reported History Medications and Allergies Home Medications Medication Instructions Recorded Confirmed Type Ibuprofen [Motrin Ib] 600 mg PO Q6H PRN 06/23/19 06/23/19 History Vancomycin 1250mg/250ml 1,250 mg IV Q8H 06/23/19 06/23/19 History Allergies Allergy/AdvReac Type Severity Reaction Status Date / Time No Known Allergies Allergy Verified 06/23/19 13:41 Physical Exam Vitals: Vital Signs Temp Pulse Pulse Resp BP BP Pulse Ox 06/23/19 21:18 102.9 F H 115 H 20 100 06/23/19 18:05 98.9 F 115 H 20 110/61 98 06/23/19 17:07 98.6 F 90 20 106/60 99 06/23/19 15:49 99.5 F 112 H 17 106/76 97 12/05/19 14:07 100.9 F H 12/05/19 13:47 102.7 F H 119 H 17 125/70 100 06/23/19 11:14 100.2 F H 97 22 132/92 100 Intake and Output 06/23/19 06/23/19 06/23/19 06:59 14:59 22:59 Other: # Voids 1 Weight 68.946 kg 68.946 kg Results CBC & Chem 7: 06/23/19 12:00 06/23/19 12:00 Labs: Abnormal Lab Results - Last 24 Hours (Table) 06/23/19 06/23/19 06/23/19 Range/Units 12:00 12:00 12:09 Lymphocytes # 0.5 L (1.0-4.8) k/uL Carbon Dioxide 21 L (22-30) mmol/L BUN 18 H (7-17) mg/dL Urine Ketones Trace H (Negative) Urine Blood Small H (Negative) Urine Mucus Rare H (None) /hpf Thrombosis Risk Factor Assmnt - Choose All That Apply Any of the Below Risk Factors Present?: No Other Risk Factors: No Other congenital or acquired thrombophilia - If yes, enter type in comment: No Thrombosis Risk Factor Assessment Level: Very Low Risk
[2019-06-24] MEDS: SODIUM CHLORIDE 0.9% 1,000 ML IV SCH ×3 (02:10→17:19)
[2019-06-24] MEDS: AMPICILLIN-SULBACTAM 1.5 GM in SODIUM CHLORIDE 0.9% 50 ML IVPB SCH ×2 (05:29→11:28)
[2019-06-24] MEDS: VANCOMYCIN 1,250 MG in SODIUM CHLORIDE 0.9% 250 ML IVPB SCH ×2 (06:04→13:30)
[2019-06-24] MEDS: ACETAMINOPHEN TAB 325 MG TAB PO PRN (06:22)
[2019-06-24] MEDS: KETOROLAC 30 MG/ML 1 ML VIAL IVP PRN ×3 (08:13→20:57)
[2019-06-24 09:25] LABS: Basophils % (A) 0 %; Eosinophils # (A) 0.1 k/uL (0-0.7); Eosinophils % (A) 3 %; HCT 32.7 % (34.0-46.0); HGB 10.4 gm/dL (11.4-16.0); Lymphocytes # (A) 0.8 k/uL (1.0-4.8); Lymphocytes % (A) 19 %; MCH 29.1 pg (25.0-35.0); MCHC 31.7 g/dL (31.0-37.0); MCV 91.9 fL (80.0-100.0); Mean Platelet Volume 7.9; Monocytes # (A) 0.1 k/uL (0-1.0); Monocytes % (A) 2 %; Neutrophils # (A) 3.1 k/uL (1.3-7.7); Neutrophils % (A) 75 %; Platelet Count 179 k/uL (150-450); RBC 3.56 m/uL (3.80-5.40); RDW 13.1 % (11.5-15.5); WBC 4.1 k/uL (3.8-10.6)
--- NOTE | 2019-06-24 12:00 | ECHOF ---
Referral Reason:Rule out vegetation MEASUREMENTS -------- HEIGHT: 162.6 cm WEIGHT: 68.9 kg BP: RVIDd: 2.6 cm (< 3.3) IVSd: 1.2 cm (0.6 - 1.1) LVIDd: 3.5 cm (3.9 - 5.3) LVPWd: 1.5 cm (0.6 - 1.1) IVSs: 1.4 cm LVIDs: 3.1 cm LVPWs: 1.4 cm LA Diam: 2.9 cm (2.7 - 3.8) Ao Diam: 2.5 cm (2.0 - 3.7) AV Cusp: 1.5 cm (1.5 - 2.6) LA Diam: 3.6 cm (2.7 - 3.8) MV EXCURSION: 12.408 mm (> 18.000) MV EF SLOPE: 92 mm/s (70 - 150) EPSS: 0.4 cm MV E Bassem: 0.77 m/s MV DecT: 215 ms MV A Bassem: 0.71 m/s MV E/A Ratio: 1.08 RAP: 5.00 mmHg RVSP: 31.14 mmHg FINDINGS -------- Sinus rhythm. This was a technically good study. LV size, wall thickness and systolic function are normal, with an EF greater than 55%. The left mary tricular size is normal. Overall left ventricular systolic function is normal with, an EF between 5 5 - 60 %. The right ventricle is normal in size. The left atrial size is normal. The right atrial size is normal. The aortic valve is trileaflet, and appears structurally normal. No aortic stenosis or regurgitation. Mild mitral annular calcification present. Mild mitral regurgitation is present. Mild tricuspid regurgitation present. Right ventricular systolic pressure is normal at < 35 mmHg. There is no evidence of pulmonary hypertension. There is no pulmonic regurgitation present. The aortic root size is normal. There is no pericardial effusion. CONCLUSIONS -------- 1. Sinus rhythm. 2. This was a technically good study. 3. LV size, wall thickness and systolic function are normal, with an EF greater than 55%. 4. The left ventricular size is normal. 5. Overall left ventricular systolic function is normal with, an EF between 55 - 60 %. 6. The right ventricle is normal in size. 7. The left atrial size is normal. 8. The right atrial size is normal. 9. The aortic valve is trileaflet, and appears structurally normal. No aortic stenosis or regurgitati on. 10. Mild mitral annular calcification present. 11. Mild mitral regurgitation is present. 12. Mild tricuspid regurgitation present. 13. Right ventricular systolic pressure is normal at < 35 mmHg. 14. There is no evidence of pulmonary hypertension. 15. There is no pulmonic regurgitation present. 16. The aortic root size is normal. 17. There is no pericardial effusion. FREELANCE PHOTOGRAPHER: Coir Casey RDCS
[2019-06-24 12:26] LABS: African American GFR (CKD) >90 (>60 ml/min/1.73 sqM); Anion Gap 5 mmol/L; Blood Urea Nitrogen 10 mg/dL (7-17); Calcium 7.8 mg/dL (8.4-10.2); Carbon Dioxide 23 mmol/L (22-30); Chloride 107 mmol/L (98-107); Glucose 94 mg/dL (74-99); Non-African American GFR(CKD) >90 (>60 ml/min/1.73 sqM); Potassium 3.8 mmol/L (3.5-5.1); Sodium 135 mmol/L (137-145)
[2019-06-24] MEDS ORDERED: TEMAZEPAM 15 MG CAP PO PRN (15:36)
[2019-06-24] MEDS: HYDROmorphone 0.5 MG/0.5 ML SYRINGE IVP PRN ×2 (15:45→21:53)
--- NOTE | 2019-06-24 16:12 | PN ---
PROGRESS NOTE DATE OF SERVICE: 06/24/2019 This 38-year-old woman who was admitted with a significant infection of the chin area was in [facility] about 8 days and subsequently patient was discharged on vancomycin IV on a PICC line in the left arm. Because of lack of improvement, patient worsened significantly and patient will be started on vancomycin again. A 2D echo with Doppler was also done which showed ejection fraction about 55% to 60% and minimal valvular abnormalities. Patient is being closely monitored. Infectious disease evaluation in progress. Past medical history reviewed. REVIEW OF SYSTEMS: HEENT: As mentioned earlier. CARDIOVASCULAR SYSTEM: No angina, palpitations. RESPIRATORY SYSTEM: As mentioned earlier. GI: As mentioned earlier. : No dysuria or retention. NERVOUS SYSTEM: No numbness, weakness. CURRENT MEDICATIONS: Reviewed. They include: 1. Tylenol p.r.n. 2. Unasyn 1.5 q.6. 3. Toradol. 4. Vancomycin IV. PHYSICAL EXAMINATION: Patient is alert, oriented x3. The pulse is 97, blood pressure 99/61, respirations 16, temperature 98.6, pulse ox 99% on room air. T-max is 100.6. HEENT: Conjunctivae normal. Oral mucosa moist. Otherwise, there is significant pain and swelling of the chin area with no fluctuation. Severe tenderness noted. Some erythema is also noted. NECK: No jugular venous distention. No carotid bruit. No lymph node enlargement. CARDIOVASCULAR SYSTEM: S1, S2 muffled. RESPIRATORY SYSTEM: Breath sounds diminished at the bases. A few scattered rhonchi. No crackles. ABDOMEN: Soft, nontender. LEGS: No edema. No swelling. NERVOUS SYSTEM: Higher functions as mentioned earlier. Moves all 4 limbs. No focal motor or sensory deficit. LYMPHATICS: No lymph node palpable in neck, axillae or groin. SKIN: No ulcer, rash, bleeding. JOINTS: No active deforming arthropathy. LABS: WBC 4.2, hemoglobin 10.4. Sodium 135. UA noted. ASSESSMENT: 1. Acute chin infection with possible methicillin-resistant Staphylococcus aeruginosa with sepsis, present on admission. 2. Anemia, normocytic; anemia of chronic disease. 3. Hyponatremia. 4. Failed outpatient treatment. 5. History of rheumatoid arthritis and degenerative joint disease. 6. History of multiple sclerosis. 7. History of aortic calcification in the previous chart. 8. History of anxiety. 9. Continued ongoing nicotine dependence. 10.FULL CODE. RECOMMENDATIONS AND DISCUSSION: In this 38-year-old woman who presented with multiple complex medical issues, we will monitor the patient closely, continue the current medications, continue with symptomatic treatment. Otherwise, at this time I recommend resuming the home medications. Symptomatic treatment of the pain. I would also recommend broad-spectrum IV antibiotics. Follow the cultures. The prognosis is guarded because of multiple complex medical issues. Closely follow with Infectious Disease. Further recommendations to follow. MMODL / IJN: [id number] /
[2019-06-24] MEDS: DAPTOmycin 500 MG in SODIUM CHLORIDE 0.9% 50 ML IVPB SCH (17:19)
[2019-06-24] MEDS: HEPARIN SODIUM,PORCINE 5,000 UNIT/ML 1 ML VIAL SQ SCH (20:56)
[2019-06-25] MEDS: HYDROmorphone 0.5 MG/0.5 ML SYRINGE IVP PRN ×3 (03:52→18:00)
[2019-06-25] MEDS ORDERED: VANCOMYCIN TROUGH DUE 1 EACH MISC MISCELLANE ONE (05:00)
[2019-06-25] MEDS: ACETAMINOPHEN TAB 325 MG TAB PO PRN (05:01)
[2019-06-25] MEDS: PANTOPRAZOLE 40 MG TABLET PO SCH (07:57)
[2019-06-25] MEDS: MULTIVITAMINS, THERA 1 EACH TAB PO SCH (07:57)
[2019-06-25] MEDS: KETOROLAC 30 MG/ML 1 ML VIAL IVP PRN ×3 (07:58→21:59)
[2019-06-25] MEDS: HEPARIN SODIUM,PORCINE 5,000 UNIT/ML 1 ML VIAL SQ SCH ×2 (07:58→20:14)
[2019-06-25 08:26] LABS: Basophils % (A) 0 %; Eosinophils # (A) 0.1 k/uL (0-0.7); Eosinophils % (A) 2 %; HCT 29.7 % (34.0-46.0); HGB 9.7 gm/dL (11.4-16.0); Lymphocytes # (A) 1.7 k/uL (1.0-4.8); Lymphocytes % (A) 26 %; MCH 29.8 pg (25.0-35.0); MCHC 32.6 g/dL (31.0-37.0); MCV 91.4 fL (80.0-100.0); Mean Platelet Volume 7.1; Monocytes # (A) 0.1 k/uL (0-1.0); Monocytes % (A) 2 %; Neutrophils # (A) 4.3 k/uL (1.3-7.7); Neutrophils % (A) 67 %; Platelet Count 155 k/uL (150-450); RBC 3.25 m/uL (3.80-5.40); RDW 13.3 % (11.5-15.5); WBC 6.5 k/uL (3.8-10.6)
[2019-06-25 08:49] LABS: African American GFR (CKD) >90 (>60 ml/min/1.73 sqM); Anion Gap 6 mmol/L; Blood Urea Nitrogen 7 mg/dL (7-17); Carbon Dioxide 23 mmol/L (22-30); Chloride 104 mmol/L (98-107); Glucose 131 mg/dL (74-99); Non-African American GFR(CKD) >90 (>60 ml/min/1.73 sqM); Potassium 3.5 mmol/L (3.5-5.1); Sodium 133 mmol/L (137-145)
[2019-06-25] MEDS: SODIUM CHLORIDE 0.9% 1,000 ML IV SCH ×2 (11:21→20:14)
--- NOTE | 2019-06-25 13:40 | P.CONS ---
History of Present Illness - Reason for Consult Consult date: 06/24/19 - Chief Complaint Fever and pain - History of Present Illness 38-year-old woman who is known to this service from her recent hospitalization at the outside hospital. There she had difficulty with a significant abscess that had formed on her chin to the left side. There was extensive and required drainage from the surgeon. She is evidence of positive blood cultures and MRSA was isolated. She eventually was discharged home on intravenous vancomycin therapy and doing relatively well. She had improvement to the chin now presents to Hospital feeling very poorly. She relates that she developed high-grade fevers chills rigors and felt extremely poorly. She presents to Hospital. 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 She relates that she was compliant with her antibiotic therapy as a well- developed high-grade fevers and felt extremely poorly. Review of Systems Feels poorly with chills HEENT: Does complain of some headache but no acute visual change. Denies sinus or mouth discomforts. Denies neck stiffness or pain. Denies significant oral cavity pain. Denies difficulty on swallowing. Lungs: Denies significant shortness of breath, cough, sputum production, or hemoptysis. Cardiovascular: Denies significant shortness of breath, chest pain, chest wall pain, orthopnea, dyspnea on exertion, syncope Gastrointestinal:Denies nausea, vomiting, diarrhea, constipation, hematemesis, melena, hematochezia. No no significant change of bowel habit noticed. Musculoskeletal: denies significant myalgias or arthralgias. No new joint swelling. Denies new back pain. Skin: Chin is feeling better almost to normal Neuro: Denies headache or visual change. Denies any new onset weakness or difficulty with ambulation. Denies falls or seizures. Psychiatric:Denies anxiety or depression. Endocrine: has fatigue Past Medical History Past Medical History: Blood Disorder, Eye Disorder, Rheumatoid Arthritis (RA) Additional Past Medical History / Comment(s): optic neuritis, multiple sclerosis,profiency s disorder, found in previous medical chart aortic calcification History of Any Multi-Drug Resistant Organisms: None Reported Past Surgical History: Appendectomy Additional Past Surgical History / Comment(s): ectopic (2) Past Anesthesia/Blood Transfusion Reactions: No Reported Reaction Past Psychological History: Anxiety Additional Psychological History / Comment(s): She is not . She lives with her mother and her children. Does not outside of the home. Tobacco use. Denies recreational drug use or alcohol use. No experience. No international travel Smoking Status: Current every day smoker Past Alcohol Use History: None Reported Past Drug Use History: None Reported - Past Family History Father Family Medical History: No Reported History Medications and Allergies Home Medications and Allergies Comment(s): Current Medications Acetaminophen (Tylenol Tab) 650 mg PO Q6HR PRN PRN Reason: Mild Pain or Fever > 100.5 Last Admin: 06/25/19 05:01 Dose: 650 mg Documented by: Alprazolam (Xanax) 0.25 mg PO TID PRN PRN Reason: Anxiety Heparin Sodium (Porcine) (Heparin) 5,000 unit SQ Q12HR [facility] Last Admin: 06/25/19 07:58 Dose: 5,000 unit Documented by: Hydromorphone HCl (Dilaudid) 0.5 mg IVP Q6HR PRN PRN Reason: Pain Last Admin: 06/25/19 12:22 Dose: 0.5 mg Documented by: Sodium Chloride (Saline 0.9%) 1,000 mls @ 75 mls/hr IV .[id number] [facility] Last Admin: 06/25/19 11:21 Dose: Not Given Documented by: Daptomycin 500 mg/ Sodium (Chloride) 50 mls @ 100 mls/hr IVPB Q24H [facility]; Protocol Last Admin: 06/24/19 17:19 Dose: 100 mls/hr Documented by: Ketorolac Tromethamine (Toradol) 15 mg IVP Q6HR PRN PRN Reason: Pain Stop: 06/27/19 18:34 Last Admin: 06/25/19 07:58 Dose: 15 mg Documented by: Multivitamins (Theragran) 1 each PO DAILY@1200 [facility] Last Admin: 06/25/19 07:57 Dose: 1 each Documented by: Naloxone HCl (Narcan) 0.2 mg IV Q2M PRN PRN Reason: Opioid Reversal Pantoprazole Sodium (Protonix) 40 mg PO AC-BRKFST [facility] Last Admin: 06/25/19 07:57 Dose: 40 mg Documented by: Temazepam (Restoril) 15 mg PO HS PRN PRN Reason: Insomnia Home Medications Medication Instructions Recorded Confirmed Type Ibuprofen [Motrin Ib] 600 mg PO Q6H PRN 06/23/19 06/23/19 History Vancomycin 1250mg/250ml 1,250 mg IV Q8H 06/23/19 06/23/19 History Allergies Allergy/AdvReac Type Severity Reaction Status Date / Time No Known Allergies Allergy Verified 06/23/19 13:41 Physical Exam Vitals: Vital Signs Temp Pulse Resp BP BP Pulse Ox 06/25/19 04:54 101.2 F H 117 H 18 113/70 98 06/24/19 22:15 99.3 F 107 H 20 108/64 97 06/24/19 15:00 98.6 F 97 16 99/61 99 Intake and Output 06/24/19 06/25/19 06/25/19 22:59 06:59 14:59 Other: # Voids 2 1 38-year-old female feels poorly with fever HEENT: Anicteric conjunctiva are pink and moist nasal mucosa grossly intact without significant lesions, there is no thrush. The recent abscess on the left side of the chin is generally resolved. There is only some residual minimal tissue induration with no fluctuance or crepitances and it is not very tender the erythema is down to just a light pink Neck: The neck is supple without significant lymphadenopathy or thyromegaly. Lungs: Good bilateral air entry without significant crackles or wheezing. There is no significant bronchial sounds. There is no egophony or dullness. Heart: Regular rate and rhythm with an audible S1-S2, no S3 no S4. There is no significant murmur click or rub, PMI was nondisplaced. Abdomen: Positive bowel sounds soft and nontender without palpable masses or organomegaly. There was no guarding or rebound. Extremities: The upper extremities have excellent pulses they are symmetric, no significant petechiae or telangiectasia. No splinter hemorrhages were noted. The lower extremities are free from significant edema. The peripheral pulses were 2+ and symmetric. Neuro: Awake alert oriented to person place and time. There are no acute new gross focal sensory motor deficits. Results CBC & Chem 7: 06/25/19 07:54 06/25/19 07:54 Labs: Abnormal Lab Results - Last 24 Hours (Table) 06/24/19 06/25/19 06/25/19 Range/Units 11:40 07:54 07:54 RBC 3.25 L (3.80-5.40) m/uL Hgb 9.7 L (11.4-16.0) gm/dL Hct 29.7 L (34.0-46.0) % Sodium 135 L 133 L (137-145) mmol/L Glucose 131 H (74-99) mg/dL Calcium 7.8 L 8.0 L (8.4-10.2) mg/dL Microbiology - Last 24 Hours (Table) 06/23/19 12:00 Blood Culture - Preliminary Blood No Growth after 24 hours Laboratory Results WBC 6.5 k/uL (3.8-10.6) 06/25/19 07:54 RBC 3.25 m/uL (3.80-5.40) L 06/25/19 07:54 Hgb 9.7 gm/dL (11.4-16.0) L 06/25/19 07:54 Hct 29.7 % (34.0-46.0) L 06/25/19 07:54 MCV 91.4 fL (80.0-100.0) 06/25/19 07:54 MCH 29.8 pg (25.0-35.0) 06/25/19 07:54 MCHC 32.6 g/dL (31.0-37.0) 06/25/19 07:54 RDW 13.3 % (11.5-15.5) 06/25/19 07:54 Plt Count 155 k/uL (150-450) 06/25/19 07:54 Neutrophils % 67 % 06/25/19 07:54 Lymphocytes % 26 % 06/25/19 07:54 Monocytes % 2 % 06/25/19 07:54 Eosinophils % 2 % 06/25/19 07:54 Basophils % 0 % 06/25/19 07:54 Neutrophils # 4.3 k/uL (1.3-7.7) 06/25/19 07:54 Lymphocytes # 1.7 k/uL (1.0-4.8) 06/25/19 07:54 Monocytes # 0.1 k/uL (0-1.0) 06/25/19 07:54 Eosinophils # 0.1 k/uL (0-0.7) 06/25/19 07:54 Basophils # 0.0 k/uL (0-0.2) 06/25/19 07:54 PT 9.6 sec (9.0-12.0) 06/23/19 12:00 INR 0.9 (<1.2) 06/23/19 12:00 APTT 28.2 sec (22.0-30.0) 06/23/19 12:00 Sodium 133 mmol/L (137-145) L 06/25/19 07:54 Potassium 3.5 mmol/L (3.5-5.1) 06/25/19 07:54 Chloride 104 mmol/L (98-107) 06/25/19 07:54 Carbon Dioxide 23 mmol/L (22-30) 06/25/19 07:54 Anion Gap 6 mmol/L 06/25/19 07:54 BUN 7 mg/dL (7-17) 06/25/19 07:54 Creatinine 0.58 mg/dL (0.52-1.04) 06/25/19 07:54 Est GFR (CKD-EPI)AfAm >90 (>60 ml/min/1.73 sqM) 06/25/19 07:54 Est GFR (CKD-EPI)NonAf >90 (>60 ml/min/1.73 sqM) 06/25/19 07:54 Glucose 131 mg/dL (74-99) H 06/25/19 07:54 Plasma Lactic Acid Erik 1.5 mmol/L (0.7-2.0) 06/24/19 08:47 Calcium 8.0 mg/dL (8.4-10.2) L 06/25/19 07:54 Total Bilirubin 0.4 mg/dL (0.2-1.3) 06/23/19 12:00 AST 28 U/L (14-36) 06/23/19 12:00 ALT 30 U/L (9-52) 06/23/19 12:00 Alkaline Phosphatase 104 U/L (38-126) 06/23/19 12:00 Total Protein 7.8 g/dL (6.3-8.2) 06/23/19 12:00 Albumin 4.3 g/dL (3.5-5.0) 06/23/19 12:00 Urine Color Light Yellow 06/23/19 12:09 Urine Appearance Clear (Clear) 06/23/19 12:09 Urine pH 6.0 (5.0-8.0) 06/23/19 12:09 Ur Specific [place] 1.014 (1.001-1.035) 06/23/19 12:09 Urine Protein Negative (Negative) 06/23/19 12:09 Urine Glucose (UA) Negative (Negative) 06/23/19 12:09 Urine Ketones Trace (Negative) H 06/23/19 12:09 Urine Blood Small (Negative) H 06/23/19 12:09 Urine Nitrite Negative (Negative) 06/23/19 12:09 Urine Bilirubin Negative (Negative) 06/23/19 12:09 Urine Urobilinogen <2.0 mg/dL (<2.0) 06/23/19 12:09 Ur Leukocyte Esterase Negative (Negative) 06/23/19 12:09 Urine RBC 2 /hpf (0-5) 06/23/19 12:09 Urine WBC 1 /hpf (0-5) 06/23/19 12:09 Ur Squamous Epith Cells 1 /hpf (0-4) 06/23/19 12:09 Urine Mucus Rare /hpf (None) H 06/23/19 12:09 Random Vancomycin 20.7 ug/mL 06/23/19 12:00 Influenza Type A RNA Not Detected (Not Detectd) 06/23/19 12:00 Influenza Type B (PCR) Not Detected (Not Detectd) 06/23/19 12:00 Microbiology 06/23/19 12:00 Blood Blood Culture - Preliminary No Growth after 24 hours Assessment and Plan (1) MRSA bacteremia Narrative/Plan: 38-year-old woman who has a history of recent abscess to her left chin with staph aureus bacteremia which was MRSA. After being improvement to the outside hospital she was discharged home on outpatient intravenous antibiotic therapy with vancomycin. At home she was tolerated well over to the sudden onset of the recurrent fever chills malaise and feeling quite poorly overall. The Chin though is definitely improving, The etiology of the fever at this point in time could be related to the underlying infection with MRSA bacteremia. However she seemed to be having clinical improvement. A secondary infection is of concern. She was checked for influenza and was negative, although with her sinus congestion respiratory congestion and a bit of a cough and fever and body aches appear to be more of a viral infection superimposed upon the MRSA bacteremia. Concern that she was having an adverse reaction to vancomycin, causing this has now been transitioned to daptomycin therapy. She was also on Unasyn which is discontinued in case she is having difficulties with that. Given that she is having some ongoing fevers will add and Azactam until we have further cultures which will hopefully be in the next few days determine how she is doing. Current Visit: Yes Status: Acute Code(s): R78.81 - BACTEREMIA SNOMED Code(s): 06319741662000041 (2) Cellulitis of chin Current Visit: Yes Status: Acute Code(s): L03.211 - CELLULITIS OF FACE SNOMED Code(s): 70175268 (3) Fever Current Visit: Yes Status: Acute Code(s): R50.9 - FEVER, UNSPECIFIED SNOMED Code(s): 327348734
[2019-06-25] MEDS: AZTREONAM 2 GM in SODIUM CHLORIDE 0.9% 100 ML IVPB SCH ×2 (15:23→23:52)
[2019-06-25] MEDS: DAPTOmycin 500 MG in SODIUM CHLORIDE 0.9% 50 ML IVPB SCH (17:57)
--- NOTE | 2019-06-25 18:29 | PN ---
PROGRESS NOTE DATE OF SERVICE: 06/25/2019 This 38-year-old woman was admitted with cellulitis of the chin with failure of outpatient treatment is being closely monitored. Dr. Paul has recommended changing the antibiotic with some relief in the symptoms. No chest pain. No palpitations. No fever. EXAM: Alert and oriented x3. Pulse is 105, blood pressure 120/77, respiration 18, temperature 99.9, T-max is 101.2. HEENT: Conjunctivae normal. Oral mucosa moist. NECK: No jugular venous distention. No lymph node enlargement. CARDIOVASCULAR: S1, S2. RESPIRATORY: Diminished breath sounds at the bases. A few scattered rhonchi. ABDOMEN: Soft, nontender. NERVOUS SYSTEM: No focal deficits. LAB STUDIES: WBC 6, hemoglobin 9.7, sodium 133. PAST MEDICAL HISTORY: Reviewed. REVIEW OF SYSTEMS: HEENT: As mentioned earlier. CARDIOVASCULAR: No angina. RESPIRATORY: No cough, no hemoptysis. GI: As mentioned earlier. : No dysuria or retention. NERVOUS SYSTEM: No numbness or weakness. CURRENT MEDICATIONS: Reviewed and include: 1. Tylenol 650 q.6h p.r.n. 2. Xanax 0.5 t.i.d. 3. Azactam 2 g IV q.8h. 4. Daptomycin 500 mg q.24 hours. 5. Heparin 5 subcu b.i.d. 6. Dilaudid. 7. Multivitamins. 8. Narcan. 9. Protonix. 10.Restoril. ASSESSMENT: 1. Acute skin infection with possible methicillin-resistant Staphylococcus aeruginosa with sepsis, present on admission. 2. Anemia, normocytic anemia of chronic disease. 3. Hyponatremia. 4. Failure of outpatient treatment. 5. History of rheumatoid arthritis and degenerative joint disease. 6. History of multiple sclerosis. 7. History of aortic calcification in the previous chart. 8. History of anxiety. 9. Continued ongoing nicotine dependence. 10.Hyponatremia. 11.FULL CODE. RECOMMENDATIONS AND DISCUSSION: In this 38-year-old woman who presented with multiple complex medical issues, we will monitor the patient closely, continue the antibiotic combination with daptomycin and aztreonam as recommend Infectious Disease. Otherwise, we will continue to monitor. I would also recommend a bone scan also to rule out the possibility of osteomyelitis. Otherwise, guarded prognosis because of multiple complex medical issues. Further recommendations to follow. See orders for details. A sedimentation rate and CRP will also ordered. MMODL / IJN: [id number] /
[2019-06-26] MEDS: HYDROmorphone 0.5 MG/0.5 ML SYRINGE IVP PRN ×4 (01:18→21:54)
[2019-06-26] MEDS: KETOROLAC 30 MG/ML 1 ML VIAL IVP PRN ×2 (05:18→18:15)
[2019-06-26 08:04] LABS: Basophils % (A) 0 %; Eosinophils # (A) 0.1 k/uL (0-0.7); Eosinophils % (A) 2 %; HCT 27.8 % (34.0-46.0); HGB 9.3 gm/dL (11.4-16.0); Lymphocytes # (A) 2.7 k/uL (1.0-4.8); Lymphocytes % (A) 36 %; MCH 30.6 pg (25.0-35.0); MCHC 33.6 g/dL (31.0-37.0); Mean Platelet Volume 8.7; Monocytes # (A) 0.3 k/uL (0-1.0); Monocytes % (A) 4 %; Neutrophils % (A) 55 %; Platelet Count 174 k/uL (150-450); RBC 3.05 m/uL (3.80-5.40); RDW 13.3 % (11.5-15.5); WBC 7.4 k/uL (3.8-10.6)
[2019-06-26 08:20] LABS: African American GFR (CKD) >90 (>60 ml/min/1.73 sqM); Anion Gap 6 mmol/L; Blood Urea Nitrogen 11 mg/dL (7-17); Calcium 8.2 mg/dL (8.4-10.2); Carbon Dioxide 25 mmol/L (22-30); Chloride 107 mmol/L (98-107); Glucose 116 mg/dL (74-99); Non-African American GFR(CKD) >90 (>60 ml/min/1.73 sqM); Potassium 3.8 mmol/L (3.5-5.1); Sodium 138 mmol/L (137-145)
[2019-06-26] MEDS: AZTREONAM 2 GM in SODIUM CHLORIDE 0.9% 100 ML IVPB SCH ×3 (08:39→23:58)
[2019-06-26] MEDS: HEPARIN SODIUM,PORCINE 5,000 UNIT/ML 1 ML VIAL SQ SCH ×2 (08:39→20:37)
[2019-06-26] MEDS: MULTIVITAMINS, THERA 1 EACH TAB PO SCH (08:39)
[2019-06-26] MEDS: PANTOPRAZOLE 40 MG TABLET PO SCH (08:39)
[2019-06-26] MEDS: ALPRAZolam 0.25 MG TAB PO PRN (10:42)
[2019-06-26] MEDS: SODIUM CHLORIDE 0.9% 1,000 ML IV SCH ×2 (11:37→23:58)
--- NOTE | 2019-06-26 12:28 | NM ---
EXAMINATION TYPE: NM bone 3 phase DATE OF EXAM: 06/26/2019 COMPARISON: NONE HISTORY: Painful channel Triple phase bone scintigraphy was performed following the injection of 23.6 mCi Tc 99m MDP. Immedia te images and 3 hours post injection images acquired. FINDINGS: Blood flow to the head and neck is symmetric bilaterally. Blood pool images are unremarkable. Delayed static images do not show significant uptake in the region of the mandible. IMPRESSION: I DO NOT SEE CONVINCING EVIDENCE OF OSTEOMYELITIS AT THIS TIME.
[2019-06-26] MEDS: DAPTOmycin 500 MG in SODIUM CHLORIDE 0.9% 50 ML IVPB SCH (18:08)
--- NOTE | 2019-06-26 19:25 | PN ---
PROGRESS NOTE DATE OF SERVICE: 06/26/2019 This 38-year-old woman was admitted with significant chin cellulitis with failure of outpatient treatment. The patient was initially treated at [facility] and subsequently patient was on broad spectrum IV antibiotics as an outpatient. A bone scan was done to rule out the possibility of osteomyelitis and there is no convincing evidence of osteomyelitis in the bone scan. Infectious Disease is following the patient closely. No chest pain. No palpitations. No fever. EXAM: Alert and oriented x3. Pulse 88, blood pressure 103/55, respirations 16, temperature 99.4, pulse ox 98% on room air. HEENT: Conjunctivae normal. Oral mucosa moist. NECK: No jugular venous distention. No lymph node enlargement. CARDIOVASCULAR: S1, S2. RESPIRATORY: Diminished breath sounds at the bases. No rhonchi, no crackles. ABDOMEN: Soft, nontender. LEGS: No swelling. NERVOUS SYSTEM: No focal deficits. Examination of the chin: Chin tenderness and some erythema also present. LABS: WBC 7.2, hemoglobin is 9.3, and calcium is 8.2. Influenza is negative. ASSESSMENT: 1. Acute chin infection with possible methicillin-resistant Staphylococcus aeruginosa with sepsis, present on admission. 2. No evidence of osteomyelitis in the bone scan. 3. Anemia, normocytic anemia of chronic disease. 4. Hyponatremia. 5. Failure of outpatient treatment. 6. History of rheumatoid arthritis and degenerative joint disease. 7. History of multiple sclerosis. 8. History of aortic calcification in the previous chart. 9. History of anxiety. 10.Continued ongoing nicotine dependence. 11.Hyponatremia. 12.FULL CODE. RECOMMENDATIONS AND DISCUSSION: Recommend to continue current medications, continue to monitor and symptomatic treatment. Otherwise, at this time continue the IV antibiotics. Pain medications. Guarded prognosis. Further recommendations to follow. MMODL / IJN: [id number] /
[2019-06-27] MEDS: KETOROLAC 30 MG/ML 1 ML VIAL IVP PRN ×3 (00:42→15:20)
[2019-06-27] MEDS: HYDROmorphone 0.5 MG/0.5 ML SYRINGE IVP PRN ×3 (03:54→16:32)
[2019-06-27] MEDS: AZTREONAM 2 GM in SODIUM CHLORIDE 0.9% 100 ML IVPB SCH ×3 (07:40→23:16)
[2019-06-27] MEDS: HEPARIN SODIUM,PORCINE 5,000 UNIT/ML 1 ML VIAL SQ SCH ×2 (07:40→20:27)
[2019-06-27] MEDS: PANTOPRAZOLE 40 MG TABLET PO SCH (07:41)
[2019-06-27] MEDS: MULTIVITAMINS, THERA 1 EACH TAB PO SCH (07:41)
--- NOTE | 2019-06-27 07:54 | P.PN ---
Subjective This is a pleasant 58 years old female with past medical history of multiple sclerosis, rheumatoid arthritis, factor V leiden deficincy and h/o PE, who presents because of extensive cellulitis of the chain and found it failed outpatient therapy and no osteomyelitis based on bone scan. Patient is been followed closely by infectious disease team, currently she is on aztreonam and daptomycin as well as IV fluids. Her C-reactive protein is elevated at 17.7, ESR is elevated at 40 feet, she's been running fever 2 days ago at 101.2 This morning she is still having some pain in her neck with redness mainly around the tip of the chance and in the front of the neck some pain in the area increased by bleeding, however patient denies sore throat or difficulty breathing or swallowing. I discussed with her test and she declined, risks benefits and alternatives are explained. Also patient states that she has history of pulmonary embolism with factor V Leiden problem, she is to take Xarelto but she stopped about 2 years ago because she forgot dose, she follow up with her primary care doctor which he did not start her back on her anticoagulation, however she did not have any issues over the last 2 years she does not know if she should take Xarelto or not as one doctor told her she needs to and other doctor told her she does not. However patient denies chest pain or dyspnea. No abdominal pain. Gait is normal, Review of systems CONSTITUTIONAL: No fever, no malaise, no fatigue. HEENT: No recent visual problems or hearing problems. Denied any sore throat. CARDIOVASCULAR: No orthopnea, PND, no palpitations, no syncope. PULMONARY: No shortness of breath, no cough, no hemoptysis. GASTROINTESTINAL: No diarrhea, no nausea, no vomiting, no abdominal pain. Normoactive bowel sounds. NEUROLOGICAL: No headaches, no weakness, no numbness. HEMATOLOGICAL: Denies any bleeding or petechiae. GENITOURINARY: Denies any burning micturition, frequency, or urgency. MUSCULOSKELETAL/RHEUMATOLOGICAL: Denies any joint pain, swelling, or any muscle pain. ENDOCRINE: Denies any polyuria or polydipsia. Active Medications Generic Name Dose Route Start Last Admin Trade Name Freq PRN Reason Stop Dose Admin Acetaminophen 650 mg 06/23/19 13:22 06/25/19 05:01 Tylenol Tab PO 650 mg Q6HR PRN Administration Mild Pain or Fever > 100.5 Alprazolam 0.25 mg 06/24/19 15:36 06/26/19 10:42 Xanax PO 0.25 mg TID PRN Administration Anxiety Heparin Sodium (Porcine) 5,000 unit 06/24/19 21:00 06/27/19 07:40 Heparin SQ 5,000 unit Q12HR KONRAD Administration Hydromorphone HCl 0.5 mg 06/24/19 15:13 06/27/19 03:54 Dilaudid IVP 0.5 mg Q6HR PRN Administration Pain Sodium Chloride 1,000 mls @ 75 mls/hr 06/23/19 11:30 06/26/19 23:58 Saline 0.9% IV 75 mls/hr .[id number] KONRAD Administration Daptomycin 500 mg/ Sodium 50 mls @ 100 mls/hr 06/24/19 17:30 06/26/19 18:08 Chloride IVPB 100 mls/hr Q24H KONRAD Administration Protocol Aztreonam 2 gm/ Sodium 100 mls @ 100 mls/hr 06/25/19 16:00 06/27/19 07:40 Chloride IVPB 100 mls/hr Q8HR KONRAD Administration Protocol Ketorolac Tromethamine 15 mg 06/23/19 18:34 06/27/19 07:40 Toradol IVP 06/27/19 18:34 15 mg Q6HR PRN Administration Pain Multivitamins 1 each 06/25/19 12:00 06/27/19 07:41 Theragran PO 1 each DAILY@1200 KONRAD Administration Naloxone HCl 0.2 mg 06/23/19 13:22 Narcan IV Q2M PRN Opioid Reversal Pantoprazole Sodium 40 mg 06/25/19 07:30 06/27/19 07:41 Protonix PO 40 mg [id number] KONRAD Administration Temazepam 15 mg 06/24/19 15:36 Restoril PO HS PRN Insomnia Objective - Vital Signs Vital signs: Vital Signs Temp 97.6 F 06/27/19 05:18 Pulse 85 06/27/19 05:18 Resp 18 06/27/19 05:18 BP 110/68 06/27/19 05:18 Pulse Ox 97 06/27/19 05:18 Intake & Output 06/26/19 06/27/19 06/27/19 18:59 06:59 18:59 Intake Total 740 850 Balance 740 850 Intake: Intake, IV Titration 200 Amount Aztreonam 2 gm In Sodium 100 Chloride 0.9% 100 ml @ 100 mls/hr IVPB Q8HR KONRAD Rx#:[id number] DAPTOmycin 500 mg In 100 Sodium Chloride 0.9% 50 ml @ 100 mls/hr IVPB Q24H KONRAD Rx#:[id number] Oral 540 850 Other: # Voids 3 2 - Exam GENERAL: The patient is alert and oriented x3, not in any acute distress. Well developed, well nourished. HEENT: Pupils are round and equally reacting to light. EOMI. No scleral icterus. No conjunctival pallor. Normocephalic, atraumatic. No pharyngeal erythema. No thyromegaly. CARDIOVASCULAR: S1 and S2 present. No murmurs, rubs, or gallops. PULMONARY: Chest is clear to auscultation, no wheezing or crackles. ABDOMEN: Soft, nontender, nondistended, normoactive bowel sounds. No palpable organomegaly. MUSCULOSKELETAL: No joint swelling or deformity. EXTREMITIES: No cyanosis, clubbing, or pedal edema. NEUROLOGICAL: Gross neurological examination did not reveal any focal deficits. -SKIN: Redness and swelling and tenderness of the chin and the front of the neck, no petechiae - Labs CBC & Chem 7: 06/26/19 07:44 06/26/19 07:44 Labs: Abnormal Lab Results - Last 24 Hours (Table) 06/26/19 06/26/19 Range/Units 07:44 07:44 RBC 3.05 L (3.80-5.40) m/uL Hgb 9.3 L (11.4-16.0) gm/dL Hct 27.8 L (34.0-46.0) % Glucose 116 H (74-99) mg/dL Calcium 8.2 L (8.4-10.2) mg/dL Microbiology - Last 24 Hours (Table) 06/23/19 12:00 Blood Culture - Preliminary Blood No Growth after 72 hours Assessment and Plan Assessment: Extensive cellulitis of the chain and front neck Elevated C-reactive protein and ESR factor V leiden deficincy and h/o PE, with nonadherence to her Xarelto History of multiple sclerosis Plan: This is a pleasant 38 years old female who presents because of cellulitis of the chain and front of the neck, continue with antibiotics of aztreonam and daptomycin as per infectious disease recommendation, continue with IV fluids. Pain management, we'll consult hematology team to see if patient is to resume her Xarelto or not given her history of coagulopathy and pulmonary embolism.Labs and medication were reviewed.. Continue same treatment. Continue with symptomatic treatment. Resume home medication. Monitor lytes and vitals. DVT and GI prophylaxis. Further recommendations of the clinical course of the patient DVT prophylaxis: Subcutaneous heparin GI Prophylaxis: Protonix Prognosis is guarded
[2019-06-27 09:13] LABS: African American GFR (CKD) >90 (>60 ml/min/1.73 sqM); Anion Gap 9 mmol/L; Blood Urea Nitrogen 11 mg/dL (7-17); Calcium 8.2 mg/dL (8.4-10.2); Carbon Dioxide 22 mmol/L (22-30); Chloride 106 mmol/L (98-107); Glucose 138 mg/dL (74-99); Non-African American GFR(CKD) >90 (>60 ml/min/1.73 sqM); Potassium 4.2 mmol/L (3.5-5.1); Sodium 137 mmol/L (137-145)
[2019-06-27 09:30] LABS: Basophils % (A) 0 %; Eosinophils # (A) 0.2 k/uL (0-0.7); Eosinophils % (A) 3 %; HCT 26.7 % (34.0-46.0); HGB 8.8 gm/dL (11.4-16.0); Hypochromasia Slight; Lymphocytes # (A) 2.5 k/uL (1.0-4.8); Lymphocytes % (A) 31 %; MCH 30.8 pg (25.0-35.0); MCHC 33.1 g/dL (31.0-37.0); MCV 93.3 fL (80.0-100.0); Monocytes # (A) 0.3 k/uL (0-1.0); Monocytes % (A) 4 %; Neutrophils # (A) 4.8 k/uL (1.3-7.7); Neutrophils % (A) 59 %; Platelet Count 204 k/uL (150-450); RBC 2.86 m/uL (3.80-5.40); RDW 13.4 % (11.5-15.5); WBC 8.2 k/uL (3.8-10.6)
[2019-06-27] MEDS: ACETAMINOPHEN TAB 325 MG TAB PO PRN ×2 (15:19→23:33)
[2019-06-27] MEDS: SODIUM CHLORIDE 0.9% 1,000 ML IV SCH (15:26)
[2019-06-27] MEDS: DAPTOmycin 500 MG in SODIUM CHLORIDE 0.9% 50 ML IVPB SCH (16:27)
--- NOTE | 2019-06-27 19:30 | P.CONS ---
History of Present Illness - Reason for Consult Consult date: 06/27/19 History of PE, possible hypercoagulable state. - History of Present Illness The patient is a 38-year-old white female, with a conjugated past medical history. She was admitted this time because of abscess on her chin that had developed from acne lesions. She had been treated for the same at [facility] with incision and drainage, with cultures positive for MRSA. She was discharged on 06/21/19 on vancomycin. She had presented with recurrent fevers. On exam apparently the chin appeared better. The patient had given a history of pulmonary embolus some years ago, and possible hypercoagulable state due to which consult was placed. The patient is a somewhat poor historian in this regard. She states that the clot occurred possibly about 5 years ago, and she was diagnosed at [facility]. She apparently had a hypercoagulable workup. She states that she was told by her PCP at the time that she had " proficiency S " deficiency. She states that the source of the pulmonary embolus was not found. She denied seeing any curbstone setter at the time. He states that she was placed on anticoagulation which she believes was Xarelto. According to her treatment for several months but then started forgetting to take it and ultimately stopped it. She has had no evidence of clots before or after. She denied any family history. She also denied any provoking factors. Her records were reviewed in the EMR. The patient did have a hematology consult with myself in 2014. She had been admitted with some shortness of breath and chest tightness. CT at the time pelvis a possibility of a small right lower lobe embolus a possible adjacent small pulmonary infarct. However the study was not very definitive, and based on my assessment and artifact was not ruled out, especially as d-dimer was actually normal. Ultrasound of the extremities, both upper and lower were negative. The patient was also seen by pulmonary medicine, with a possibility of the clot was potentially questionable. However as it could not be ruled out definitively, and the correlation was recommended. The patient did have a hypercoagulable workup, which revealed protein C and S deficiency initially. She also had lupus anticoagulant positivity. However these findings can be falsely positive in the setting of an acute clot, and ongoing anticoagulation respectively. Review of the records that [facility] indicated that the patient had repeat protein C and S testing done in 2016 by her PCP at that time. These were both within normal limits. Notes during this admission and s tated that the patient is a history of factor V Leiden mutation. She denied the same. She was tested for that also and was found to be negative. The patient does have a history of multiple sclerosis for which she is not following anyone right now. Prior to her clot, she had taken a steroid bolus, though she had apparently required at only about 2 or 3 times in 2014 prior to the clot. Review of Systems Constitutional: Reports fatigue Eyes: denies blurred vision, denies pain Ears: deny: decreased hearing, ear discharge, earache, tinnitus Ears, nose, mouth and throat: Reports as per HPI, Denies headache, Denies sore throat Cardiovascular: Denies chest pain, Denies shortness of breath Respiratory: Denies cough Gastrointestinal: Denies abdominal pain, Denies diarrhea, Denies nausea, Denies vomiting Genitourinary: Denies dysuria, Denies hematuria Musculoskeletal: Reports muscle weakness Integumentary: Reports as per HPI (Abscesses on the chin due to MRSA), Reports acne Neurological: Reports as per HPI, Reports paresthesias, Reports weakness Psychiatric: Reports anxiety Endocrine: Reports fatigue Hematologic/Lymphatic: Reports as per HPI, Reports thrombophilia (Questionable) Past Medical History Past Medical History: Blood Disorder, Eye Disorder, Rheumatoid Arthritis (RA) Additional Past Medical History / Comment(s): optic neuritis, multiple scleros is,profiency s disorder, found in previous medical chart aortic calcification History of Any Multi-Drug Resistant Organisms: MRSA Year Discovered:: 06/21/19 [facility] MDRO Source:: C[facility] Past Surgical History: Appendectomy Additional Past Surgical History / Comment(s): ectopic (2) Past Anesthesia/Blood Transfusion Reactions: No Reported Reaction Past Psychological History: Anxiety Additional Psychological History / Comment(s): She is not . She lives with her mother and her children. Does not outside of the home. Tobacco use. Denies recreational drug use or alcohol use. No experience. No international travel Smoking Status: Current every day smoker Past Alcohol Use History: None Reported Past Drug Use History: None Reported - Past Family History Father Family Medical History: No Reported History Medications and Allergies Home Medications Medication Instructions Recorded Confirmed Type Ibuprofen [Motrin Ib] 600 mg PO Q6H PRN 06/23/19 06/23/19 History Vancomycin 1250mg/250ml 1,250 mg IV Q8H 06/23/19 06/23/19 History DAPTOmycin [Cubicin] 500 mg IV DAILY #14 bag 06/27/19 Rx Allergies Allergy/AdvReac Type Severity Reaction Status Date / Time No Known Allergies Allergy Verified 06/23/19 13:41 Physical Exam Vitals: Vital Signs Temp Pulse Resp BP Pulse Ox 06/27/19 16:00 16 06/27/19 12:56 98.7 F 76 16 116/77 99 06/27/19 08:00 18 06/27/19 05:18 97.6 F 85 18 110/68 97 06/26/19 21:00 97.5 F L 72 18 117/70 100 Intake and Output 06/27/19 06/27/19 06/27/19 06:59 14:59 22:59 Intake Total 350 Balance 350 Intake: Oral 350 Other: # Voids 2 3 2 # Bowel Movements 0 - Constitutional General appearance: no acute distress - EENT Eyes: EOMI, PERRLA ENT: hearing grossly normal, normal oropharynx - Neck Neck: no lymphadenopathy Thyroid: bilateral: normal size - Respiratory Respiratory: bilateral: CTA - Cardiovascular Rhythm: regular Heart sounds: normal: S1, S2 - Gastrointestinal General gastrointestinal: normal bowel sounds, soft - Integumentary Integumentary: calor (On chin. No fluctuation at present) - Neurologic Neurologic: CNII-XII intact - Musculoskeletal Musculoskeletal: strength equal bilaterally - Psychiatric Psychiatric: A&O x's 3, appropriate affect Results CBC & Chem 7: 06/27/19 08:22 06/27/19 08:22 Labs: Abnormal Lab Results - Last 24 Hours (Table) 06/27/19 06/27/19 Range/Units 08:22 08:22 RBC 2.86 L (3.80-5.40) m/uL Hgb 8.8 L (11.4-16.0) gm/dL Hct 26.7 L (34.0-46.0) % Glucose 138 H (74-99) mg/dL Calcium 8.2 L (8.4-10.2) mg/dL Microbiology - Last 24 Hours (Table) 06/23/19 12:00 Blood Culture - Preliminary Blood No Growth after 96 hours Comments: Echocardiogram report reviewed. Bone scan report reviewed Chest x-ray: report reviewed CT scan - abdomen: report reviewed CT scan - chest: report reviewed CT scan - pelvis: report reviewed Venous US: report reviewed Assessment and Plan (1) Hypercoagulable state Narrative/Plan: History in this regard is as described. Her initial PE was diagnosed in 2014. As noted above, the CT findings were questionable, with d-dimer negative. Therefore it is possible that her findings were artifactual, due to incomplete filling of the terminal vessels rather than a true clot. Though she had somewhat limited courses, high-dose steroids as given for multiple sclerosis exacerbation, could potentially still be a provoking factor. After discussion with pulmonary medicine, they have decided to discharge her on anticoagulation. She has changed primary care providers multiple times since then has not had consistent follow-up. She also stopped anticoagulation apparently after some mo nths. - The patient has had no recurrent clots on anticoagulation. At this time there is NO definite diagnosis of any hypercoagulable state. Initially her protein C and protein S were low, but this typically happens in the setting of an acute clot. When repeated in 2015 they were normal. Factor V Leiden was also normal. Lupus anticoagulant was positive initially, but can be falsely positive and on anticoagulation. Therefore, as noted, at this time there is no definite diagnosis for any hypercoagulable condition. - I will obtain reports of prothrombin gene mutation testing from the [facility] EMR to confirm negativity. - Antithrombin III level was also within normal limits previously. - I will repeat antiphospholipid antibodies at this time only. If the above is negative, given somewhat questionable computed tomography scan findings to begin with, and her history of somewhat poor compliance with medication, at this time it would not be reasonable to recommend resuming full dose anticoagulation. The patient should be treated with standard prophylactic anticoagulation. - Extremity Dopplers the time of the initial diagnosis were negative. She had a repeat a CTA of the chest done in 11/04 which was also negative. Therefore no need for any repeat, regular imaging, unless new s/s symptoms occur Current Visit: Yes Status: Acute Code(s): D68.59 - OTHER PRIMARY THROMBOPHILIA SNOMED Code(s): 08615421 (2) Cellulitis of chin Narrative/Plan: Improved. Defer to the admitting service and other consultants for continued management Current Visit: Yes Status: Acute Code(s): L03.211 - CELLULITIS OF FACE SNOMED Code(s): 20396010
--- NOTE | 2019-06-27 22:31 | P.PN ---
Subjective Progress Note Date: 06/27/19 38-year-old woman who is known to this service from her recent hospitalization at the outside hospital. There she had difficulty with a significant abscess that had formed on her chin to the left side. There was extensive and required drainage from the surgeon. She is evidence of positive blood cultures and MRSA was isolated. She eventually was discharged home on intravenous vancomycin therapy and doing relatively well. She had improvement to the chin now presents to Hospital feeling very poorly. She relates that she developed high-grade fevers chills rigors and felt extremely poorly. She presents to Hospital. 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 She relates that she was compliant with her antibiotic therapy as a well- developed high-grade fevers and felt extremely poorly. 06/27/2019 the patient had a migraine is now feeling somewhat better with that medication. Her high-grade fevers chills and general malaise has improved greatly since coming to hospital. She's now been more than a day without a fever. Other than the headache she has no other new acute complaints. Objective - Vital Signs Vital signs: Vital Signs Temp 98.7 F 06/27/19 12:56 Pulse 76 06/27/19 12:56 Resp 16 06/27/19 16:00 BP 116/77 06/27/19 12:56 Pulse Ox 99 06/27/19 12:56 Intake & Output 06/27/19 06/27/19 06/28/19 06:59 18:59 06:59 Intake Total 850 Balance 850 Intake: Oral 850 Other: # Voids 2 2 # Bowel Movements 0 - Exam 38-year-old female feels poorly with fever HEENT: Anicteric conjunctiva are pink and moist nasal mucosa grossly intact without significant lesions, there is no thrush. The recent abscess on the left side of the chin is generally resolved. There is only some residual minimal tissue induration with no fluctuance or crepitances and it is not very tender the erythema is down to just a light pink Neck: The neck is supple without significant lymphadenopathy or thyromegaly. Lungs: Good bilateral air entry without significant crackles or wheezing. There is no significant bronchial sounds. There is no egophony or dullness. Heart: Regular rate and rhythm with an audible S1-S2, no S3 no S4. There is no significant murmur click or rub, PMI was nondisplaced. Abdomen: Positive bowel sounds soft and nontender without palpable masses or organomegaly. There was no guarding or rebound. Extremities: The upper extremities have excellent pulses they are symmetric, no significant petechiae or telangiectasia. No splinter hemorrhages were noted. The lower extremities are free from significant edema. The peripheral pulses were 2+ and symmetric. Neuro: Awake alert oriented to person place and time. There are no acute new gross focal sensory motor deficits. - Labs CBC & Chem 7: 06/27/19 08:22 06/27/19 08:22 Labs: Abnormal Lab Results - Last 24 Hours (Table) 06/27/19 06/27/19 Range/Units 08:22 08:22 RBC 2.86 L (3.80-5.40) m/uL Hgb 8.8 L (11.4-16.0) gm/dL Hct 26.7 L (34.0-46.0) % Glucose 138 H (74-99) mg/dL Calcium 8.2 L (8.4-10.2) mg/dL Microbiology - Last 24 Hours (Table) 06/23/19 12:00 Blood Culture - Preliminary Blood No Growth after 96 hours Laboratory Results WBC 8.2 k/uL (3.8-10.6) 06/27/19 08:22 RBC 2.86 m/uL (3.80-5.40) L 06/27/19 08:22 Hgb 8.8 gm/dL (11.4-16.0) L 06/27/19 08:22 Hct 26.7 % (34.0-46.0) L 06/27/19 08:22 MCV 93.3 fL (80.0-100.0) 06/27/19 08:22 MCH 30.8 pg (25.0-35.0) 06/27/19 08:22 MCHC 33.1 g/dL (31.0-37.0) 06/27/19 08:22 RDW 13.4 % (11.5-15.5) 06/27/19 08:22 Plt Count 204 k/uL (150-450) 06/27/19 08:22 Neutrophils % 59 % 06/27/19 08:22 Lymphocytes % 31 % 06/27/19 08:22 Monocytes % 4 % 06/27/19 08:22 Eosinophils % 3 % 06/27/19 08:22 Basophils % 0 % 06/27/19 08:22 Neutrophils # 4.8 k/uL (1.3-7.7) 06/27/19 08:22 Lymphocytes # 2.5 k/uL (1.0-4.8) 06/27/19 08:22 Monocytes # 0.3 k/uL (0-1.0) 06/27/19 08:22 Eosinophils # 0.2 k/uL (0-0.7) 06/27/19 08:22 Basophils # 0.0 k/uL (0-0.2) 06/27/19 08:22 Hypochromasia Slight 06/27/19 08:22 ESR 48 mm/hr (0-20) H 06/25/19 07:54 PT 9.6 sec (9.0-12.0) 06/23/19 12:00 INR 0.9 (<1.2) 06/23/19 12:00 APTT 28.2 sec (22.0-30.0) 06/23/19 12:00 Sodium 137 mmol/L (137-145) 06/27/19 08:22 Potassium 4.2 mmol/L (3.5-5.1) 06/27/19 08:22 Chloride 106 mmol/L (98-107) 06/27/19 08:22 Carbon Dioxide 22 mmol/L (22-30) 06/27/19 08:22 Anion Gap 9 mmol/L 06/27/19 08:22 BUN 11 mg/dL (7-17) 06/27/19 08:22 Creatinine 0.54 mg/dL (0.52-1.04) 06/27/19 08:22 Est GFR (CKD-EPI)AfAm >90 (>60 ml/min/1.73 sqM) 06/27/19 08:22 Est GFR (CKD-EPI)NonAf >90 (>60 ml/min/1.73 sqM) 06/27/19 08:22 Glucose 138 mg/dL (74-99) H 06/27/19 08:22 Plasma Lactic Acid Erik 1.5 mmol/L (0.7-2.0) 06/24/19 08:47 Calcium 8.2 mg/dL (8.4-10.2) L 06/27/19 08:22 Total Bilirubin 0.4 mg/dL (0.2-1.3) 06/23/19 12:00 AST 28 U/L (14-36) 06/23/19 12:00 ALT 30 U/L (9-52) 06/23/19 12:00 Alkaline Phosphatase 104 U/L (38-126) 06/23/19 12:00 C-Reactive Protein 70.7 mg/L (<10.0) H 06/25/19 07:54 Total Protein 7.8 g/dL (6.3-8.2) 06/23/19 12:00 Albumin 4.3 g/dL (3.5-5.0) 06/23/19 12:00 Urine Color Light Yellow 06/23/19 12:09 Urine Appearance Clear (Clear) 06/23/19 12:09 Urine pH 6.0 (5.0-8.0) 06/23/19 12:09 Ur Specific [place] 1.014 (1.001-1.035) 06/23/19 12:09 Urine Protein Negative (Negative) 06/23/19 12:09 Urine Glucose (UA) Negative (Negative) 06/23/19 12:09 Urine Ketones Trace (Negative) H 06/23/19 12:09 Urine Blood Small (Negative) H 06/23/19 12:09 Urine Nitrite Negative (Negative) 06/23/19 12:09 Urine Bilirubin Negative (Negative) 06/23/19 12:09 Urine Urobilinogen <2.0 mg/dL (<2.0) 06/23/19 12:09 Ur Leukocyte Esterase Negative (Negative) 06/23/19 12:09 Urine RBC 2 /hpf (0-5) 06/23/19 12:09 Urine WBC 1 /hpf (0-5) 06/23/19 12:09 Ur Squamous Epith Cells 1 /hpf (0-4) 06/23/19 12:09 Urine Mucus Rare /hpf (None) H 06/23/19 12:09 Random Vancomycin 20.7 ug/mL 06/23/19 12:00 Influenza Type A RNA Not Detected (Not Detectd) 06/23/19 12:00 Influenza Type B (PCR) Not Detected (Not Detectd) 06/23/19 12:00 Microbiology 06/23/19 12:00 Blood Blood Culture - Preliminary No Growth after 96 hours Assessment and Plan (1) MRSA bacteremia Narrative/Plan: 38-year-old woman who has a history of recent abscess to her left chin with staph aureus bacteremia which was MRSA. After being improvement to the outside hospital she was discharged home on outpatient intravenous antibiotic therapy with vancomycin. At home she was tolerated well over to the sudden onset of the recurrent fever chills malaise and feeling quite poorly overall. The Chin though is definitely improving, The etiology of the fever at this point in time could be related to the underlying infection with MRSA bacteremia. However she seemed to be having clinical improvement. A secondary infection is of concern. She was checked for influenza and was negative, although with her sinus congestion respiratory congestion and a bit of a cough and fever and body aches appear to be more of a viral infection superimposed upon the MRSA bacteremia. Concern that she was having an adverse reaction to vancomycin, causing this has now been transitioned to daptomycin therapy. She was also on Unasyn which is discontinued in case she is having difficulties with that. Given that she is having some ongoing fevers will add and Azactam until we have further cultures which will hopefully be in the next few days determine how she is doing. 06/27/2019 with antibiotic changes she is not doing considerably better. Her fever is resolving headache is feeling considerably better. She is due to complete the treatment of her MRSA bacteremia that appears to have come from the significant abscess to her chin which is now resolved. Or case management team to finish her course of outpatient intravenous antibiotic therapy with daptomycin. She's also been Azactam which if she is afebrile tomorrow with ongoing negative cultures will likely discontinue. Significant reaction to vancomycin therapy was likely etiology of her symptom complex at admission may also have had an acute viral process that was not influenza. Being ready for discharge home soon. Current Visit: Yes Status: Acute Code(s): R78.81 - BACTEREMIA SNOMED Code(s): 31263541173062452 (2) Cellulitis of chin Current Visit: Yes Status: Acute Code(s): L03.211 - CELLULITIS OF FACE SNOMED Code(s): 93366892 (3) Fever Current Visit: Yes Status: Acute Code(s): R50.9 - FEVER, UNSPECIFIED SNOMED Code(s): 340428132
[2019-06-28] MEDS: HYDROmorphone 0.5 MG/0.5 ML SYRINGE IVP PRN ×2 (00:10→08:04)
[2019-06-28] MEDS: SODIUM CHLORIDE 0.9% 1,000 ML IV SCH ×2 (01:05→16:51)
[2019-06-28] MEDS: HEPARIN SODIUM,PORCINE 5,000 UNIT/ML 1 ML VIAL SQ SCH ×2 (08:03→20:24)
[2019-06-28] MEDS: PANTOPRAZOLE 40 MG TABLET PO SCH (08:04)
[2019-06-28] MEDS: AZTREONAM 2 GM in SODIUM CHLORIDE 0.9% 100 ML IVPB SCH ×3 (08:04→23:37)
[2019-06-28] MEDS: MULTIVITAMINS, THERA 1 EACH TAB PO SCH (08:05)
[2019-06-28] MEDS: PSYLLIUM HUSK 100% 6 GM PACKET PO SCH ×2 (11:21→20:24)
[2019-06-28] MEDS: ACETAMINOPHEN TAB 325 MG TAB PO PRN (11:23)
[2019-06-28] MEDS ORDERED: methylPREDNISolone SOD SUCCI 40 MG/ML 1 ML VIAL IV STA (13:06)
[2019-06-28] MEDS: KETOROLAC 30 MG/ML 1 ML VIAL IVP SCH ×3 (13:28→23:36)
[2019-06-28] MEDS: DAPTOmycin 500 MG in SODIUM CHLORIDE 0.9% 50 ML IVPB SCH ×2 (17:21→17:55)
--- NOTE | 2019-06-28 23:55 | P.PN ---
Progress Note - Text Progress Note Date: 06/28/19 Chief Complaint: Chills History of presenting complaint: This is a 38-year-old patient who follows with Dr. Mary Bowles/arie KELLOGG. Patient was just recently admitted at [facility] under Dr. Renetta Qureshi, where she presented with the pimples that progressed to become abscess on the chin extending to the face. It was drained and blood cultures were positive for MRSA. Patient was discharged on June 21 with IV vancomycin. Getting 450 mg every 8 hours. The chin is significantly improved. There is some local tenderness and discomfort. Patient denies any urinary symptoms. Patient is on her menstrual period. Has a bowel movement every 10-12 days. Slight cough. Patient also has a history of MS. Has stopped following with the neurologist because she felt to not getting cared for. 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 Cultures are negative. Patient seen by Dr. Mccarthy from hematology.-He is doubtful about her hypercoagulable state. Today-feeling much better. Starting a diet. No fever no chills. Redness of the chin greatly improved. Review of systems: Was done for constitutional, cardiovascular, GI, pulmonary. relevant finding as above Active Medications Acetaminophen (Tylenol Tab) 650 mg PO Q6HR PRN PRN Reason: Mild Pain or Fever > 100.5 Last Admin: 06/28/19 11:23 Dose: 650 mg Documented by: Alprazolam (Xanax) 0.25 mg PO TID PRN PRN Reason: Anxiety Last Admin: 06/26/19 10:42 Dose: 0.25 mg Documented by: Heparin Sodium (Porcine) (Heparin) 5,000 unit SQ Q12HR [facility] Last Admin: 06/28/19 20:24 Dose: 5,000 unit Documented by: Hydromorphone HCl (Dilaudid) 0.5 mg IVP Q6HR PRN PRN Reason: Pain Last Admin: 06/28/19 08:04 Dose: 0.5 mg Documented by: Sodium Chloride (Saline 0.9%) 1,000 mls @ 75 mls/hr IV .[id number] [facility]ONRAD Last Admin: 06/28/19 16:51 Dose: 75 mls/hr Documented by: Daptomycin 500 mg/ Sodium (Chloride) 50 mls @ 100 mls/hr IVPB Q24H [facility]ONRAD; Prot ocol Last Admin: 06/28/19 17:55 Dose: 100 mls/hr Documented by: Aztreonam 2 gm/ Sodium (Chloride) 100 mls @ 100 mls/hr IVPB Q8HR [facility]; Protocol Last Admin: 06/28/19 23:37 Dose: 100 mls/hr Documented by: Ketorolac Tromethamine (Toradol) 30 mg IVP Q6HR [facility] Stop: 07/02/19 13:07 Last Admin: 06/28/19 23:36 Dose: 30 mg Documented by: Multivitamins (Theragran) 1 each PO DAILY@1200 [facility] Last Admin: 06/28/19 08:05 Dose: 1 each Documented by: Naloxone HCl (Narcan) 0.2 mg IV Q2M PRN PRN Reason: Opioid Reversal Pantoprazole Sodium (Protonix) 40 mg PO AC-BRKFST [facility] Last Admin: 06/28/19 08:04 Dose: 40 mg Documented by: Psyllium Hydrophilic Mucilloid (Metamucil) 6 gm PO BID [facility] Last Admin: 06/28/19 20:24 Dose: 6 gm Documented by: Temazepam (Restoril) 15 mg PO HS PRN PRN Reason: Insomnia Physical examination: VITAL SIGNS: 98.2, 79, 16, 110/66, 98% room air GENERAL: Sitting up in bed, comfortable EYES: Pupils equal. Conjunctiva normal. HEENT: External appearance of nose and ears normal, oral cavity grossly normal redness(, prominence on the chin-redness greatly improved NECK: JVD not raised; masses not palpable. HEART: First and second heart sounds are normal; no edema. LUNGS: Respiratory rate normal; mild wheezing. ABDOMEN: Soft, nontender, liver spleen not palpable, no masses palpable. PSYCH: [Alert and oriented x3; mood and affect very anxious l. INVESTIGATIONS, reviewed in the clinical context: White count 8.2 hemoglobin 8.8 calcium 4.2 crit 0.54 Previous testing: White count 8.3 hemoglobin 12.3 progression 4.2 creatinine 0.78 Patient's blood cultures at [facility] were positive for MRSA CRP 70.7. Bone [id number] negative 2-D echo-unremarkable Assessment: -This is a patient who was at [facility] recently for about a week and had an abscess of the chin that was drained the blood cultures positive for MRSA. Patient was discharged on June 21 IV vancomycin, 50 mg every 8 for 10 days. Patient admitted with further fevers. The chin abscess is actually clinically looking better. Patient has a sepsis picture. This could be a viral syndrome. -Chronic multiple sclerosis with optic neuritis not being followed by neurologist -Questionable Factor V Leyden mutation with history of pulmonary embolism -Chronic nicotine dependence patient cigarette smoker -Anxiety disorder not otherwise specified Plan: Daptomycin has been ordered per Dr. Paul for 2 weeks. Spoke to transplant case manager, Kim. Approval is being sought from the insurance company.
--- NOTE | 2019-06-29 00:04 | P.PN ---
Subjective Progress Note Date: 06/28/19 38-year-old woman who is known to this service from her recent hospitalization at the outside hospital. There she had difficulty with a significant abscess that had formed on her chin to the left side. There was extensive and required drainage from the surgeon. She is evidence of positive blood cultures and MRSA was isolated. She eventually was discharged home on intravenous vancomycin therapy and doing relatively well. She had improvement to the chin now presents to Hospital feeling very poorly. She relates that she developed high-grade fevers chills rigors and felt extremely poorly. She presents to Hospital. 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 She relates that she was compliant with her antibiotic therapy as a well- developed high-grade fevers and felt extremely poorly. 06/27/2019 the patient had a migraine is now feeling somewhat better with that medication. Her high-grade fevers chills and general malaise has improved greatly since coming to hospital. She's now been more than a day without a fever. Other than the headache she has no other new acute complaints. 06/28/2019 the patient was feeling somewhat better but now is developed sudden headaches, but her fevers have improved. Number chills or rigors. Chin is feeling better. Headache is made her have some nausea but no emesis. Objective - Vital Signs Vital signs: Vital Signs Temp 97.9 F 06/28/19 20:21 Pulse 64 06/28/19 20:21 Resp 18 06/28/19 20:21 BP 101/62 06/28/19 20:21 Pulse Ox 98 06/28/19 20:21 Intake & Output 06/28/19 06/28/19 06/29/19 06:59 18:59 06:59 Intake Total 750 540 Balance 750 540 Intake: Oral 750 540 Other: # Voids 2 2 1 - Exam 38-year-old female feels poorly with fever HEENT: Anicteric conjunctiva are pink and moist nasal mucosa grossly intact without significant lesions, there is no thrush. The recent abscess on the left side of the chin is generally resolved. There is only some residual minimal tissue induration with no fluctuance or crepitances and it is not very tender the erythema is down to just a light pink Neck: The neck is supple without significant lymphadenopathy or thyromegaly. Lungs: Good bilateral air entry without significant crackles or wheezing. There is no significant bronchial sounds. There is no egophony or dullness. Heart: Regular rate and rhythm with an audible S1-S2, no S3 no S4. There is no significant murmur click or rub, PMI was nondisplaced. Abdomen: Positive bowel sounds soft and nontender without palpable masses or organomegaly. There was no guarding or rebound. Extremities: The upper extremities have excellent pulses they are symmetric, no significant petechiae or telangiectasia. No splinter hemorrhages were noted. The lower extremities are free from significant edema. The peripheral pulses were 2+ and symmetric. Neuro: Awake alert oriented to person place and time. There are no acute new gross focal sensory motor deficits. - Labs CBC & Chem 7: 06/27/19 08:22 06/27/19 08:22 Labs: Microbiology - Last 24 Hours (Table) 06/23/19 12:00 Blood Culture - Preliminary Blood No Growth after 120 hours Laboratory Results WBC 8.2 k/uL (3.8-10.6) 06/27/19 08:22 RBC 2.86 m/uL (3.80-5.40) L 06/27/19 08:22 Hgb 8.8 gm/dL (11.4-16.0) L 06/27/19 08:22 Hct 26.7 % (34.0-46.0) L 06/27/19 08:22 MCV 93.3 fL (80.0-100.0) 06/27/19 08:22 MCH 30.8 pg (25.0-35.0) 06/27/19 08:22 MCHC 33.1 g/dL (31.0-37.0) 06/27/19 08:22 RDW 13.4 % (11.5-15.5) 06/27/19 08:22 Plt Count 204 k/uL (150-450) 06/27/19 08:22 Neutrophils % 59 % 06/27/19 08:22 Lymphocytes % 31 % 06/27/19 08:22 Monocytes % 4 % 06/27/19 08:22 Eosinophils % 3 % 06/27/19 08:22 Basophils % 0 % 06/27/19 08:22 Neutrophils # 4.8 k/uL (1.3-7.7) 06/27/19 08:22 Lymphocytes # 2.5 k/uL (1.0-4.8) 06/27/19 08:22 Monocytes # 0.3 k/uL (0-1.0) 06/27/19 08:22 Eosinophils # 0.2 k/uL (0-0.7) 06/27/19 08:22 Basophils # 0.0 k/uL (0-0.2) 06/27/19 08:22 Hypochromasia Slight 06/27/19 08:22 ESR 48 mm/hr (0-20) H 06/25/19 07:54 PT 9.6 sec (9.0-12.0) 06/23/19 12:00 INR 0.9 (<1.2) 06/23/19 12:00 APTT 28.2 sec (22.0-30.0) 06/23/19 12:00 Sodium 137 mmol/L (137-145) 06/27/19 08:22 Potassium 4.2 mmol/L (3.5-5.1) 06/27/19 08:22 Chloride 106 mmol/L (98-107) 06/27/19 08:22 Carbon Dioxide 22 mmol/L (22-30) 06/27/19 08:22 Anion Gap 9 mmol/L 06/27/19 08:22 BUN 11 mg/dL (7-17) 06/27/19 08:22 Creatinine 0.54 mg/dL (0.52-1.04) 06/27/19 08:22 Est GFR (CKD-EPI)AfAm >90 (>60 ml/min/1.73 sqM) 06/27/19 08:22 Est GFR (CKD-EPI)NonAf >90 (>60 ml/min/1.73 sqM) 06/27/19 08:22 Glucose 138 mg/dL (74-99) H 06/27/19 08:22 Plasma Lactic Acid Erik 1.5 mmol/L (0.7-2.0) 06/24/19 08:47 Calcium 8.2 mg/dL (8.4-10.2) L 06/27/19 08:22 Total Bilirubin 0.4 mg/dL (0.2-1.3) 06/23/19 12:00 AST 28 U/L (14-36) 06/23/19 12:00 ALT 30 U/L (9-52) 06/23/19 12:00 Alkaline Phosphatase 104 U/L (38-126) 06/23/19 12:00 C-Reactive Protein 70.7 mg/L (<10.0) H 06/25/19 07:54 Total Protein 7.8 g/dL (6.3-8.2) 06/23/19 12:00 Albumin 4.3 g/dL (3.5-5.0) 06/23/19 12:00 Urine Color Light Yellow 06/23/19 12:09 Urine Appearance Clear (Clear) 06/23/19 12:09 Urine pH 6.0 (5.0-8.0) 06/23/19 12:09 Ur Specific Roy 1.014 (1.001-1.035) 06/23/19 12:09 Urine Protein Negative (Negative) 06/23/19 12:09 Urine Glucose (UA) Negative (Negative) 06/23/19 12:09 Urine Ketones Trace (Negative) H 06/23/19 12:09 Urine Blood Small (Negative) H 06/23/19 12:09 Urine Nitrite Negative (Negative) 06/23/19 12:09 Urine Bilirubin Negative (Negative) 06/23/19 12:09 Urine Urobilinogen <2.0 mg/dL (<2.0) 06/23/19 12:09 Ur Leukocyte Esterase Negative (Negative) 06/23/19 12:09 Urine RBC 2 /hpf (0-5) 06/23/19 12:09 Urine WBC 1 /hpf (0-5) 06/23/19 12:09 Ur Squamous Epith Cells 1 /hpf (0-4) 06/23/19 12:09 Urine Mucus Rare /hpf (None) H 06/23/19 12:09 Random Vancomycin 20.7 ug/mL 06/23/19 12:00 Influenza Type A RNA Not Detected (Not Detectd) 06/23/19 12:00 Influenza Type B (PCR) Not Detected (Not Detectd) 06/23/19 12:00 Microbiology Entire Visit 06/23/19 12:00 Blood Blood Culture - Preliminary No Growth after 120 hours Assessment and Plan (1) MRSA bacteremia Narrative/Plan: 38-year-old woman who has a history of recent abscess to her left chin with staph aureus bacteremia which was MRSA. After being improvement to the outside hospital she was discharged home on outpatient intravenous antibiotic therapy with vancomycin. At home she was tolerated well over to the sudden onset of the recurrent fever chills malaise and feeling quite poorly overall. The Chin thoug h is definitely improving, The etiology of the fever at this point in time could be related to the u nderlying infection with MRSA bacteremia. However she seemed to be having clinical improvement. A secondary infection is of concern. She was checked for influenza and was negative, although with her sinus congestion respiratory congestion and a bit of a cough and fever and body aches appear to be more of a viral infection superimposed upon the MRSA bacteremia. Concern that she was having an adverse reaction to vancomycin, causing this has now been transitioned to daptomycin therapy. She was also on Unasyn which is discontinued in case she is having difficulties with that. Given that she is having some ongoing fevers will add and Azactam until we have further cultures which will hopefully be in the next few days determine how she is doing. 06/27/2019 with antibiotic changes she is not doing considerably better. Her fever is resolving headache is feeling considerably better. She is due to complete the treatment of her MRSA bacteremia that appears to have come from the significant abscess to her chin which is now resolved. Or case management team to finish her course of outpatient intravenous antibiotic therapy with daptomycin. She's also been Azactam which if she is afebrile tomorrow with ongoing negative cultures will likely discontinue. Significant reaction to vancomycin therapy was likely etiology of her symptom complex at admission may also have had an acute viral process that was not influenza. Being ready for discharge home soon. 06/28/2019 the patient had severe headache which is now considerably. Her fevers have resolved and she feels better overall except for headache with a changed to daptomycin. Clinically it appears that she is markedly improved however still having significant headache. Dissuades her history of prior migraines. Going on for some time and we'll do a 1 time dose of Solu-Medrol along with Toradol to see if we can impact her migraines have her feeling better. Working with the discharge planners to complete her course of dap tomycin for MRSA bacteremia. Current Visit: Yes Status: Acute Code(s): R78.81 - BACTEREMIA SNOMED Code(s): 77419861980728635 (2) Cellulitis of chin Current Visit: Yes Status: Acute Code(s): L03.211 - CELLULITIS OF FACE SNOMED Code(s): 78915959 (3) Fever Current Visit: Yes Status: Acute Code(s): R50.9 - FEVER, UNSPECIFIED SNOMED Code(s): 672163529
[2019-06-29] MEDS: SODIUM CHLORIDE 0.9% 1,000 ML IV SCH ×2 (05:05→17:14)
[2019-06-29] MEDS: KETOROLAC 30 MG/ML 1 ML VIAL IVP SCH ×4 (05:34→23:46)
[2019-06-29] MEDS: HEPARIN SODIUM,PORCINE 5,000 UNIT/ML 1 ML VIAL SQ SCH ×2 (07:08→21:10)
[2019-06-29] MEDS: PANTOPRAZOLE 40 MG TABLET PO SCH (07:08)
[2019-06-29] MEDS: PSYLLIUM HUSK 100% 6 GM PACKET PO SCH ×2 (07:08→22:11)
[2019-06-29] MEDS: AZTREONAM 2 GM in SODIUM CHLORIDE 0.9% 100 ML IVPB SCH ×3 (07:08→23:48)
--- NOTE | 2019-06-29 11:27 | CDI ---
Documentation Clarification Form Date: 06/29/2019 11:03:41 AM From: Mary Brody RN CCDS Admit Date: 06/25/2019 1:06:00 PM Patient Name: Mónica Rao I Visit Number: [id number] Discharge Date: ATTENTION: The Clinical Documentation Specialists (CDI) and [facility] Coding Staff appreciate your assistance in clarifying documentation. Please respond to the clarification below the line at the bottom and electronically sign. The CDI & [facility] [employer] Coding staff will review the response and follow-up if needed. Please note: Queries are made part of the Legal Health Record. If you have any questions, please contact the author of this message via ITS. Dr. Brian Humphrey Patient has a sepsis is picture Is documented in you progress noted 06/28/2019 History/Risk Factors: 38-year-old female with a history of MRSA on her chin at [facility] 8 days ago on Vancomycin ivpb every 8 hours for 10 days. Presented to [facility] ED with sudden onset of recurrent fever, chills malaise and feeling poorly overall. Clinical Indicators: WBC 06/23 8.3 06/24 4.1 06/25 6.5 06/26 7.4 06/27 8.2 C reactive protein 06/25 70.7 Blood cultures: 06/23 no growth after 120 hours Vitals signs on admission:06/23 132/92 97 100.2 22 100% ra 06/25 113/70 11 101.2 18 98% ra Other Clinical Indicators: ID Consult:06/24 Dr. Paul She was checked for influenza and was negative, although her sinus congestion respiratory congestion and bit of a cough and fever and body aches appear to be more of a viral infection superimposed upon the MRSA bacteremia Antibiotics: 06/23 Ampicillin ivpb Q6 hrs d/c 06/24; 06/24 Daptomycin ivpb Q 24 hrs; 06/25 Aztreonam ivpb Q 8hr; IV Bolus: 06/23 0.9ns 1L bolus In your professional opinion, please clarify if these findings signify one of the following conditions, whether the condition is POA, and cause, if known: Condition * Sepsis POA * Sepsis Ruled out * Other, please specify * Unable to determine Identify the (suspected) organism SIRS Criteria (2 or more of the following may indicate SIRS): -Temperature < 96.8F (36C) or > 101.0F (38.3C) -Heart Rate > 90 bpm -Respiratory Rate > 20 breaths/min or PaCO2 < 32 mmHg -White Blood Cell Count > 12,000 or < 4,000 cells/mm3 or > 10% bands -Lactate >2.0 mmol/L (>4.0 is equivalent to septic shock) (Last Revision: October 2017) Sepsis, POA MTDD
[2019-06-29 11:47] LABS: APTT 64 Sec(s) (<43); APTT 1:1 Mix 55 Sec(s) (<43); DRVVT 1:1 Mix 45 Sec(s) (<44); DRVVT Confirmation Positive (Negative); Dilute Russell Viper Venom 55 Sec(s) (<44); Hexagonal Phase Neutralization Positive (Negative)
[2019-06-29] MEDS: MULTIVITAMINS, THERA 1 EACH TAB PO SCH (12:07)
[2019-06-29] MEDS: DAPTOmycin 500 MG in SODIUM CHLORIDE 0.9% 50 ML IVPB SCH (18:36)
--- NOTE | 2019-06-29 23:21 | P.PN ---
Subjective Progress Note Date: 06/29/19 38-year-old woman who is known to this service from her recent hospitalization at the outside hospital. There she had difficulty with a significant abscess that had formed on her chin to the left side. There was extensive and required drainage from the surgeon. She is evidence of positive blood cultures and MRSA was isolated. She eventually was discharged home on intravenous vancomycin therapy and doing relatively well. She had improvement to the chin now presents to Hospital feeling very poorly. She relates that she developed high-grade fevers chills rigors and felt extremely poorly. She presents to Hospital. 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 She relates that she was compliant with her antibiotic therapy as a well- developed high-grade fevers and felt extremely poorly. 06/27/2019 the patient had a migraine is now feeling somewhat better with that medication. Her high-grade fevers chills and general malaise has improved greatly since coming to hospital. She's now been more than a day without a fever. Other than the headache she has no other new acute complaints. 06/28/2019 the patient was feeling somewhat better but now is developed sudden headaches, but her fevers have improved. Number chills or rigors. Chin is feeling better. Headache is made her have some nausea but no emesis. 06/29/2019 patient now feels remarkably better. His of steroid is Toradol her severe headaches have completely resolved. Energy level is improved. Pain is improved overall. Looks for to discharge to home. Objective - Vital Signs Vital signs: Vital Signs Temp 98.3 F 06/29/19 20:38 Pulse 77 06/29/19 20:38 Resp 20 06/29/19 20:38 BP 107/62 06/29/19 20:38 Pulse Ox 98 06/29/19 20:38 Intake & Output 06/29/19 06/29/19 06/30/19 06:59 18:59 06:59 Intake Total 240 Balance 240 Intake: Oral 240 Other: Voiding Method Toilet # Voids 4 1 1 # Bowel Movements 2 1 1 - Exam 38-year-old female now markedly improved with resolution of her headache. HEENT: Anicteric conjunctiva are pink and moist nasal mucosa grossly intact without significant lesions, there is no thrush. The recent abscess on the left side of the chin is generally resolved. There is only some residual minimal tissue induration with no fluctuance or crepitances and it is not very tender the erythema is down to just a light pink Neck: The neck is supple without significant lymphadenopathy or thyromegaly. Lungs: Good bilateral air entry without significant crackles or wheezing. There is no significant bronchial sounds. There is no egophony or dullness. Heart: Regular rate and rhythm with an audible S1-S2, no S3 no S4. There is no significant murmur click or rub, PMI was nondisplaced. Abdomen: Positive bowel sounds soft and nontender without palpable masses or organomegaly. There was no guarding or rebound. Extremities: The upper extremities have excellent pulses they are symmetric, no significant petechiae or telangiectasia. No splinter hemorrhages were noted. The lower extremities are free from significant edema. The peripheral pulses were 2+ and symmetric. Neuro: Awake alert oriented to person place and time. There are no acute new gross focal sensory motor deficits. - Labs CBC & Chem 7: 06/27/19 08:22 06/27/19 08:22 Labs: Abnormal Lab Results - Last 24 Hours (Table) 06/28/19 Range/Units 08:30 Lupus Anticoag aPTT 64 H (<43) Sec(s) Lupus Anticoag PTT Mix 55 H (<43) Sec(s) Dil Will Viper Venom 55 H (<44) Sec(s) LA dRVVT Confirm Positive H (Negative) dRVVT 50:50 45 H (<44) Sec(s) Lupus Hexagonal Phase Positive H (Negative) Microbiology - Last 24 Hours (Table) 06/23/19 12:00 Blood Culture - Final Blood No Growth after 144 hours Laboratory Results WBC 8.2 k/uL (3.8-10.6) 06/27/19 08:22 RBC 2.86 m/uL (3.80-5.40) L 06/27/19 08:22 Hgb 8.8 gm/dL (11.4-16.0) L 06/27/19 08:22 Hct 26.7 % (34.0-46.0) L 06/27/19 08:22 MCV 93.3 fL (80.0-100.0) 06/27/19 08:22 MCH 30.8 pg (25.0-35.0) 12/09/19 08:22 MCHC 33.1 g/dL (31.0-37.0) 06/27/19 08:22 RDW 13.4 % (11.5-15.5) 06/27/19 08:22 Plt Count 204 k/uL (150-450) 06/27/19 08:22 Neutrophils % 59 % 06/27/19 08:22 Lymphocytes % 31 % 06/27/19 08:22 Monocytes % 4 % 06/27/19 08:22 Eosinophils % 3 % 06/27/19 08:22 Basophils % 0 % 06/27/19 08:22 Neutrophils # 4.8 k/uL (1.3-7.7) 06/27/19 08:22 Lymphocytes # 2.5 k/uL (1.0-4.8) 06/27/19 08:22 Monocytes # 0.3 k/uL (0-1.0) 06/27/19 08:22 Eosinophils # 0.2 k/uL (0-0.7) 06/27/19 08:22 Basophils # 0.0 k/uL (0-0.2) 06/27/19 08:22 Hypochromasia Slight 06/27/19 08:22 ESR 48 mm/hr (0-20) H 06/25/19 07:54 PT 9.6 sec (9.0-12.0) 06/23/19 12:00 INR 0.9 (<1.2) 06/23/19 12:00 APTT 28.2 sec (22.0-30.0) 06/23/19 12:00 Lupus Anticoag aPTT 64 Sec(s) (<43) H 06/28/19 08:30 Lupus Anticoag PTT Mix 55 Sec(s) (<43) H 06/28/19 08:30 Dil Will Viper Venom 55 Sec(s) (<44) H 06/28/19 08:30 LA dRVVT Confirm Positive (Negative) H 06/28/19 08:30 dRVVT 50:50 45 Sec(s) (<44) H 06/28/19 08:30 Lupus Hexagonal Phase Positive (Negative) H 06/28/19 08:30 Lupus Anticoag Interp SEE BELOW 06/28/19 08:30 Sodium 137 mmol/L (137-145) 06/27/19 08:22 Potassium 4.2 mmol/L (3.5-5.1) 06/27/19 08:22 Chloride 106 mmol/L (98-107) 06/27/19 08:22 Carbon Dioxide 22 mmol/L (22-30) 06/27/19 08:22 Anion Gap 9 mmol/L 06/27/19 08:22 BUN 11 mg/dL (7-17) 06/27/19 08:22 Creatinine 0.54 mg/dL (0.52-1.04) 06/27/19 08:22 Est GFR (CKD-EPI)AfAm >90 (>60 ml/min/1.73 sqM) 06/27/19 08:22 Est GFR (CKD-EPI)NonAf >90 (>60 ml/min/1.73 sqM) 06/27/19 08:22 Glucose 138 mg/dL (74-99) H 06/27/19 08:22 Plasma Lactic Acid Erik 1.5 mmol/L (0.7-2.0) 06/24/19 08:47 Calcium 8.2 mg/dL (8.4-10.2) L 06/27/19 08:22 Total Bilirubin 0.4 mg/dL (0.2-1.3) 06/23/19 12:00 AST 28 U/L (14-36) 06/23/19 12:00 ALT 30 U/L (9-52) 06/23/19 12:00 Alkaline Phosphatase 104 U/L (38-126) 06/23/19 12:00 C-Reactive Protein 70.7 mg/L (<10.0) H 06/25/19 07:54 Total Protein 7.8 g/dL (6.3-8.2) 06/23/19 12:00 Albumin 4.3 g/dL (3.5-5.0) 06/23/19 12:00 Urine Color Light Yellow 06/23/19 12:09 Urine Appearance Clear (Clear) 06/23/19 12:09 Urine pH 6.0 (5.0-8.0) 06/23/19 12:09 Ur Specific [place] 1.014 (1.001-1.035) 06/23/19 12:09 Urine Protein Negative (Negative) 06/23/19 12:09 Urine Glucose (UA) Negative (Negative) 06/23/19 12:09 Urine Ketones Trace (Negative) H 06/23/19 12:09 Urine Blood Small (Negative) H 06/23/19 12:09 Urine Nitrite Negative (Negative) 06/23/19 12:09 Urine Bilirubin Negative (Negative) 06/23/19 12:09 Urine Urobilinogen <2.0 mg/dL (<2.0) 06/23/19 12:09 Ur Leukocyte Esterase Negative (Negative) 06/23/19 12:09 Urine RBC 2 /hpf (0-5) 06/23/19 12:09 Urine WBC 1 /hpf (0-5) 06/23/19 12:09 Ur Squamous Epith Cells 1 /hpf (0-4) 06/23/19 12:09 Urine Mucus Rare /hpf (None) H 06/23/19 12:09 Random Vancomycin 20.7 ug/mL 06/23/19 12:00 Influenza Type A RNA Not Detected (Not Detectd) 06/23/19 12:00 Influenza Type B (PCR) Not Detected (Not Detectd) 06/23/19 12:00 Microbiology 06/23/19 12:00 Blood Blood Culture - Final No Growth after 144 hours Assessment and Plan (1) MRSA bacteremia Narrative/Plan: 38-year-old woman who has a history of recent abscess to her left chin with staph aureus bacteremia which was MRSA. After being improvement to the outside hospital she was discharged home on outpatient intravenous antibiotic therapy with vancomycin. At home she was tolerated well over to the sudden onset of the recurrent fever chills malaise and feeling quite poorly overall. The Chin though is definitely improving, The etiology of the fever at this point in time could be related to the underlying infection with MRSA bacteremia. However she seemed to be having clinical improvement. A secondary infection is of concern. She was checked for influenza and was negative, although with her sinus congestion respiratory congestion and a bit of a cough and fever and body aches appear to be more of a viral infection superimposed upon the MRSA bacteremia. Concern that she was having an adverse reaction to vancomycin, causing this has now been transitioned to daptomycin therapy. She was also on Unasyn which is discontinued in case she is having difficulties with that. Given that she is having some ongoing fevers will add and Azactam until we have further cultures which will hopefully be in the next few days determine how she is doing. 06/27/2019 with antibiotic changes she is not doing considerably better. Her fever is resolving headache is feeling considerably better. She is due to complete the treatment of her MRSA bacteremia that appears to have come from the significant abscess to her ch in which is now resolved. Or case management team to finish her course of outpatient intravenous antibiotic therapy with daptomycin. She's also been Azactam which if she is afebrile tomorrow with ongoing negative cultures will likely discontinue. Significant reaction to vancomycin therapy was likely etiology of her symptom complex at admission may also have had an acute viral process that was not influenza. Being ready for discharge home soon. 06/28/2019 the patient had severe headache which is now considerably. Her fevers have resolved and she feels better overall except for headache with a changed to daptomycin. Clinically it appears that she is markedly improved however still having significant headache. Dissuades her history of prior migraines. Going on for some time and we'll do a 1 time dose of Solu-Medrol along with Toradol to see if we can impact her migraines have her feeling better. Working with the discharge planners to complete her course of daptomycin for MRSA bacteremia. Patient is now much improved. Her headache is responded very well single Solu- Medrol with ongoing Toradol is allowed complete resolution of her headache. She was discharged home to Toradol can be transitioned to oral for this comfort at home. She is having arrangements made to complete her course of intravenous antibiotic therapy with daptomycin. She developed snippy and toxic vancomycin admission which is now resolved. It is possible that she had reactivity due to the complete dose of vancomycin given over 10 minutes instead of over lower half. Regardless she's noted while on daptomycin and must be used to complete her course of therapy. Current Visit: Yes Status: Acute Code(s): R78.81 - BACTEREMIA SNOMED Code(s): 38410857523460966 (2) Cellulitis of chin Current Visit: Yes Status: Acute Code(s): L03.211 - CELLULITIS OF FACE SNOMED Code(s): 95750349 (3) Fever Current Visit: Yes Status: Acute Code(s): R50.9 - FEVER, UNSPECIFIED S NOMED Code(s): 083952776
--- NOTE | 2019-06-30 01:06 | P.PN ---
Progress Note - Text Progress Note Date: 06/29/19 Chief Complaint: Chills History of presenting complaint: This is a 38-year-old patient who follows with Dr. Mary Bowles/arie KELLOGG. Patient was just recently admitted at [facility] under Dr. Renetta Qureshi, where she presented with the pimples that progressed to become abscess on the chin extending to the face. It was drained and blood cultures were positive for MRSA. Patient was discharged on June 21 with IV vancomycin. Getting 450 mg every 8 hours. The chin is significantly improved. There is some local tenderness and discomfort. Patient denies any urinary symptoms. Patient is on her menstrual period. Has a bowel movement every 10-12 days. Slight cough. Patient also has a history of MS. Has stopped following with the neurologist because she felt to not getting cared for. 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 Cultures are negative. Patient seen by Dr. Mccarthy from hematology.-No hypercoagulable state. Today-stable. No new issues. Awaiting insurance approval for home antibiotics. Review of systems: Was done for constitutional, cardiovascular, GI, pulmonary. relevant finding as above Active Medications Acetaminophen (Tylenol Tab) 650 mg PO Q6HR PRN PRN Reason: Mild Pain or Fever > 100.5 Last Admin: 06/28/19 11:23 Dose: 650 mg Documented by: Alprazolam (Xanax) 0.25 mg PO TID PRN PRN Reason: Anxiety Last Admin: 06/26/19 10:42 Dose: 0.25 mg Documented by: Heparin Sodium (Porcine) (Heparin) 5,000 unit SQ Q12HR [facility] Last Admin: 06/29/19 21:10 Dose: 5,000 unit Documented by: Hydromorphone HCl (Dilaudid) 0.5 mg IVP Q6HR PRN PRN Reason: Pain Last Admin: 06/28/19 08:04 Dose: 0.5 mg Documented by: Sodium Chloride (Saline 0.9%) 1,000 mls @ 75 mls/hr IV .[id number] [facility] Last Admin: 06/29/19 17:14 Dose: 75 mls/hr Documented by: Daptomycin 500 mg/ Sodium (Chloride) 50 mls @ 100 mls/hr IVPB Q24H [facility]; Protocol Last Admin: 06/29/19 18:36 Dose: 100 mls/hr Documented by: Aztreonam 2 gm/ Sodium (Chloride) 100 mls @ 100 mls/hr IVPB Q8HR [facility]; Protocol Last Admin: 06/29/19 23:48 Dose: 100 mls/hr Documented by: Ketorolac Tromethamine (Toradol) 30 mg IVP Q6HR KONRAD Stop: 07/02/19 13:07 Last Admin: 06/29/19 23:46 Dose: 30 mg Documented by: Multivitamins (Theragran) 1 each PO DAILY@1200 KONRAD Last Admin: 06/29/19 12:07 Dose: 1 each Documented by: Naloxone HCl (Narcan) 0.2 mg IV Q2M PRN PRN Reason: Opioid Reversal Pantoprazole Sodium (Protonix) 40 mg PO AC-BRKFST [facility] Last Admin: 06/29/19 07:08 Dose: 40 mg Documented by: Psyllium Hydrophilic Mucilloid (Metamucil) 6 gm PO BID [facility] Last Admin: 06/29/19 22:11 Dose: 6 gm Documented by: Temazepam (Restoril) 15 mg PO HS PRN PRN Reason: Insomnia Physical examination: VITAL SIGNS: 98.3, 65, 20, 11 1/70, 99% on room air GENERAL: Sitting up in bed, comfortable EYES: Pupils equal. Conjunctiva normal. HEENT: External appearance of nose and ears normal, oral cavity grossly normal redness(, prominence on the chin-redness greatly improved NECK: JVD not raised; masses not palpable. HEART: First and second heart sounds are normal; no edema. LUNGS: Respiratory rate normal; mild wheezing. ABDOMEN: Soft, nontender, liver spleen not palpable, no masses palpable. PSYCH: [Alert and oriented x3; mood and affect very anxious l. INVESTIGATIONS, reviewed in the clinical context: Lupus anticoagulant APTT high, lupus anticoagulate PTT mix high, and I reviewed Will wiemma relevant high, LA FELIPA R VVT confirmed positive, VVT high, lupus hexagonal phase positive White count 8.2 hemoglobin 8.8 calcium 4.2 crit 0.54 Previous testing: White count 8.3 hemoglobin 12.3 progression 4.2 creatinine 0.78 Patient's blood cultures at [facility] were positive for MRSA CRP 70.7. Bone [id number] negative 2-D echo-unremarkable Assessment: -This is a patient who was at [facility] recently for about a week and had an abscess of the chin that was drained the blood cultures positive for MRSA. Patient was discharged on June 21 IV vancomycin, 50 mg every 8 for 10 days. Patient admitted with further fevers. The chin abscess is actually clinically resolved. Initially had a a sepsis picture. This could be a viral syndrome. -Chronic multiple sclerosis with optic neuritis not being followed by neurologist -Patient does not have a factor V Leyden mutation, protein C and S deficiency, as discussed with Dr. Mccarthy -Chronic nicotine dependence patient cigarette smoker -Anxiety disorder not otherwise specified Plan: Discussed with sample case porter. Pending approval a home antibiotics other medications to continue..
[2019-06-30 01:40] LABS: Cardiolipin Ab IgG Interp NEGATIVE (NEGATIVE); Cardiolipin Ab IgM Interp NEGATIVE (NEGATIVE); Cardiolipin IgM Antibody 1.5 U/mL
[2019-06-30] MEDS: PANTOPRAZOLE 40 MG TABLET PO SCH (06:32)
[2019-06-30] MEDS: KETOROLAC 30 MG/ML 1 ML VIAL IVP SCH ×3 (06:37→19:47)
[2019-06-30] MEDS: AZTREONAM 2 GM in SODIUM CHLORIDE 0.9% 100 ML IVPB SCH (10:10)
[2019-06-30] MEDS: HEPARIN SODIUM,PORCINE 5,000 UNIT/ML 1 ML VIAL SQ SCH ×2 (10:11→21:17)
[2019-06-30] MEDS: PSYLLIUM HUSK 100% 6 GM PACKET PO SCH ×2 (10:18→21:19)
[2019-06-30] MEDS: MULTIVITAMINS, THERA 1 EACH TAB PO SCH (12:16)
[2019-06-30] MEDS ORDERED: VANCOMYCIN IV PER PHARMACY 1 EACH MISC MISCELLANE PRN (13:57)
[2019-06-30] MEDS ORDERED: VANCOMYCIN 1,250 MG in SODIUM CHLORIDE 0.9% 250 ML IVPB SCH (16:00)
--- NOTE | 2019-06-30 16:22 | P.PN ---
Subjective Progress Note Date: 06/30/19 38-year-old woman who is known to this service from her recent hospitalization at the outside hospital. There she had difficulty with a significant abscess that had formed on her chin to the left side. There was extensive and required drainage from the surgeon. She is evidence of positive blood cultures and MRSA was isolated. She eventually was discharged home on intravenous vancomycin therapy and doing relatively well. She had improvement to the chin now presents to Hospital feeling very poorly. She relates that she developed high-grade fevers chills rigors and felt extremely poorly. She presents to Hospital. 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 She relates that she was compliant with her antibiotic therapy as a well- developed high-grade fevers and felt extremely poorly. 06/27/2019 the patient had a migraine is now feeling somewhat better with that medication. Her high-grade fevers chills and general malaise has improved greatly since coming to hospital. She's now been more than a day without a fever. Other than the headache she has no other new acute complaints. 06/28/2019 the patient was feeling somewhat better but now is developed sudden headaches, but her fevers have improved. Number chills or rigors. Chin is feeling better. Headache is made her have some nausea but no emesis. 06/29/2019 patient now feels remarkably better. His of steroid is Toradol her severe headaches have completely resolved. Energy level is improved. Pain is improved overall. Looks for to discharge to home. 06/30/2019 the patient is starting to feel better, her fever seems resolved chills or resolves and the chin feels better. Objective - Vital Signs Vital signs: Vital Signs Temp 97.2 F L 06/30/19 12:22 Pulse 59 L 06/30/19 12:22 Resp 16 06/30/19 12:22 BP 131/82 06/30/19 12:22 Pulse Ox 99 06/30/19 12:22 Intake & Output 06/29/19 06/30/19 06/30/19 18:59 06:59 18:59 Intake Total 480 Balance 480 Intake: Oral 480 Other: Voiding Method Toilet # Voids 1 1 1 # Bowel Movements 1 1 - Exam 38-year-old female now markedly improved with resolution of her headache. HEENT: Anicteric conjunctiva are pink and moist nasal mucosa grossly intact without significant lesions, there is no thrush. The recent abscess on the left side of the chin is generally resolved. There is only some residual minimal tissue induration with no fluctuance or crepitances and it is not very tender the erythema is down to just a light pink Neck: The neck is supple without significant lymphadenopathy or thyromegaly. Lungs: Good bilateral air entry without significant crackles or wheezing. There is no significant bronchial sounds. There is no egophony or dullness. Heart: Regular rate and rhythm with an audible S1-S2, no S3 no S4. There is no significant murmur click or rub, PMI was nondisplaced. Abdomen: Positive bowel sounds soft and nontender without palpable masses or organomegaly. There was no guarding or rebound. Extremities: The upper extremities have excellent pulses they are symmetric, no significant petechiae or telangiectasia. No splinter hemorrhages were noted. The lower extremities are free from significant edema. The peripheral pulses were 2+ and symmetric. Neuro: Awake alert oriented to person place and time. There are no acute new gross focal sensory motor deficits. - Labs CBC & Chem 7: 06/27/19 08:22 12 08:22 Labs: Microbiology - Last 24 Hours (Table) 06/23/19 12:00 Blood Culture - Final Blood No Growth after 144 hours Laboratory Results WBC 8.2 k/uL (3.8-10.6) 06/27/19 08:22 RBC 2.86 m/uL (3.80-5.40) L 06/27/19 08:22 Hgb 8.8 gm/dL (11.4-16.0) L 06/27/19 08:22 Hct 26.7 % (34.0-46.0) L 06/27/19 08:22 MCV 93.3 fL (80.0-100.0) 06/27/19 08:22 MCH 30.8 pg (25.0-35.0) 06/27/19 08:22 MCHC 33.1 g/dL (31.0-37.0) 06/27/19 08:22 RDW 13.4 % (11.5-15.5) 06/27/19 08:22 Plt Count 204 k/uL (150-450) 06/27/19 08:22 Neutrophils % 59 % 06/27/19 08:22 Lymphocytes % 31 % 06/27/19 08:22 Monocytes % 4 % 06/27/19 08:22 Eosinophils % 3 % 06/27/19 08:22 Basophils % 0 % 06/27/19 08:22 Neutrophils # 4.8 k/uL (1.3-7.7) 06/27/19 08:22 Lymphocytes # 2.5 k/uL (1.0-4.8) 06/27/19 08:22 Monocytes # 0.3 k/uL (0-1.0) 06/27/19 08:22 Eosinophils # 0.2 k/uL (0-0.7) 06/27/19 08:22 Basophils # 0.0 k/uL (0-0.2) 06/27/19 08:22 Hypochromasia Slight 06/27/19 08:22 ESR 48 mm/hr (0-20) H 06/25/19 07:54 PT 9.6 sec (9.0-12.0) 06/23/19 12:00 INR 0.9 (<1.2) 06/23/19 12:00 APTT 28.2 sec (22.0-30.0) 06/23/19 12:00 Lupus Anticoag aPTT 64 Sec(s) (<43) H 06/28/19 08:30 Lupus Anticoag PTT Mix 55 Sec(s) (<43) H 06/28/19 08:30 Dil Will Viper Venom 55 Sec(s) (<44) H 06/28/19 08:30 LA dRVVT Confirm Positive (Negative) H 06/28/19 08:30 dRVVT 50:50 45 Sec(s) (<44) H 06/28/19 08:30 Lupus Hexagonal Phase Positive (Negative) H 06/28/19 08:30 Lupus Anticoag Interp SEE BELOW 06/28/19 08:30 Sodium 137 mmol/L (137-145) 06/27/19 08:22 Potassium 4.2 mmol/L (3.5-5.1) 06/27/19 08:22 Chloride 106 mmol/L (98-107) 06/27/19 08:22 Carbon Dioxide 22 mmol/L (22-30) 06/27/19 08:22 Anion Gap 9 mmol/L 06/27/19 08:22 BUN 11 mg/dL (7-17) 06/27/19 08:22 Creatinine 0.54 mg/dL (0.52-1.04) 06/27/19 08:22 Est GFR (CKD-EPI)AfAm >90 (>60 ml/min/1.73 sqM) 06/27/19 08:22 Est GFR (CKD-EPI)NonAf >90 (>60 ml/min/1.73 sqM) 06/27/19 08:22 Glucose 138 mg/dL (74-99) H 06/27/19 08:22 Plasma Lactic Acid Erik 1.5 mmol/L (0.7-2.0) 06/24/19 08:47 Calcium 8.2 mg/dL (8.4-10.2) L 06/27/19 08:22 Total Bilirubin 0.4 mg/dL (0.2-1.3) 06/23/19 12:00 AST 28 U/L (14-36) 06/23/19 12:00 ALT 30 U/L (9-52) 06/23/19 12:00 Alkaline Phosphatase 104 U/L (38-126) 06/23/19 12:00 C-Reactive Protein 70.7 mg/L (<10.0) H 06/25/19 07:54 Total Protein 7.8 g/dL (6.3-8.2) 06/23/19 12:00 Albumin 4.3 g/dL (3.5-5.0) 06/23/19 12:00 Urine Color Light Yellow 06/23/19 12:09 Urine Appearance Clear (Clear) 06/23/19 12:09 Urine pH 6.0 (5.0-8.0) 06/23/19 12:09 Ur Specific [place] 1.014 (1.001-1.035) 06/23/19 12:09 Urine Protein Negative (Negative) 06/23/19 12:09 Urine Glucose (UA) Negative (Negative) 06/23/19 12:09 Urine Ketones Trace (Negative) H 06/23/19 12:09 Urine Blood Small (Negative) H 06/23/19 12:09 Urine Nitrite Negative (Negative) 06/23/19 12:09 Urine Bilirubin Negative (Negative) 06/23/19 12:09 Urine Urobilinogen <2.0 mg/dL (<2.0) 06/23/19 12:09 Ur Leukocyte Esterase Negative (Negative) 06/23/19 12:09 Urine RBC 2 /hpf (0-5) 06/23/19 12:09 Urine WBC 1 /hpf (0-5) 06/23/19 12:09 Ur Squamous Epith Cells 1 /hpf (0-4) 06/23/19 12:09 Urine Mucus Rare /hpf (None) H 06/23/19 12:09 Random Vancomycin 20.7 ug/mL 06/23/19 12:00 Anti-Cardiolipin IgG Ab <1.6 U/mL 06/28/19 08:30 Cardiolipin IgG Interp NEGATIVE (NEGATIVE) 06/28/19 08:30 Anti-Cardiolipin IgM Ab 1.5 U/mL 06/28/19 08:30 Cardiolipin IgM Interp NEGATIVE (NEGATIVE) 06/28/19 08:30 Influenza Type A RNA Not Detected (Not Detectd) 06/23/19 12:00 Influenza Type B (PCR) Not Detected (Not Detectd) 06/23/19 12:00 Miscellaneous Test Beta-2 Glycoprotein 06/28/19 08:30 Misc Test Result See Comment 06/28/19 08:30 Microbiology 06/23/19 12:00 Blood Blood Culture - Final No Growth after 144 hours Assessment and Plan (1) MRSA bacteremia Narrative/Plan: 38-year-old woman who has a history of recent abscess to her left chin with staph aureus bacteremia which was MRSA. After being improvement to the outside hospital she was discharged home on outpatient intravenous antibiotic therapy with vancomycin. At home she was tolerated well over to the sudden onset of the recurrent fever chills malaise and feeling quite poorly overall. The Chin thoug h is definitely improving, The etiology of the fever at this point in time could be related to the u nderlying infection with MRSA bacteremia. However she seemed to be having clinical improvement. A secondary infection is of concern. She was checked for influenza and was negative, although with her sinus congestion respiratory congestion and a bit of a cough and fever and body aches appear to be more of a viral infection superimposed upon the MRSA bacteremia. Concern that she was having an adverse reaction to vancomycin, causing this has now been transitioned to daptomycin therapy. She was also on Unasyn which is discontinued in case she is having difficulties with that. Given that she is having some ongoing fevers will add and Azactam until we have further cultures which will hopefully be in the next few days determine how she is doing. 06/27/2019 with antibiotic changes she is not doing considerably better. Her fever is resolving headache is feeling considerably better. She is due to complete the treatment of her MRSA bacteremia that appears to have come from the significant abscess to her chin which is now resolved. Or case management team to finish her course of outpatient intravenous antibiotic therapy with daptomycin. She's also been Azactam which if she is afebrile tomorrow with ongoing negative cultures will likely discontinue. Significant reaction to vancomycin therapy was likely etiology of her symptom complex at admission may also have had an acute viral process that was not influenza. Being ready for discharge home soon. 06/28/2019 the patient had severe headache which is now considerably. Her fevers have resolved and she feels better overall except for headache with a changed to daptomycin. Clinically it appears that she is markedly improved however still having significant headache. Dissuades her history of prior migraines. Going on for some time and we'll do a 1 time dose of Solu-Medrol along with Toradol to see if we can impact her migraines have her feeling better. Working with the discharge planners to complete her course of dap tomycin for MRSA bacteremia. Patient is now much improved. Her headache is responded very well single Solu- Medrol with ongoing Toradol is allowed complete resolution of her headache. She was discharged home to Toradol can be transitioned to oral for this comfort at home. She is having arrangements made to complete her course of intravenous antibiotic therapy with daptomycin. She developed snippy and toxic vancomycin admission which is now resolved. It is possible that she had reactivity due to the complete dose of vancomycin given over 10 minutes instead of over lower half. Regardless she's noted while on daptomycin and must be used to complete her course of therapy. 06/30/2019 the patient is certainly improved since admission. Fevers chills malaise have all improved. She's also had complete resolution of her severe headache. She has done well on daptomycin therapy. However pathogen is MRSA, and the Vanco MAUREEN is adequate. Consequently her insurance company is not allowing daptomycin for home. As noted yesterday the patient did accidentally infuse the entire dose of vancomycin within about 10 minutes. It is likely her acute reaction was to the rapid infusion of the antibiotic. Consequently another dose of be tried in an extra period of time. Will be given over the u sual timeframe. She tolerates this well she will then complete her course of vancomycin the home setting. 28 days is planned because of the MRSA bacteremia she had is noted from the other facility. Discussed with case management in apparently her vancomycin as she has at home is still not immobility utilize that. Nursing staff here will reeducate on how to infuse her therapy before her discharge today. Current Visit: Yes Status: Acute Code(s): R78.81 - BACTEREMIA SNOMED Code(s): 25734947295721270 (2) Cellulitis of chin Current Visit: Yes Status: Acute Code(s): L03.211 - CELLULITIS OF FACE SNOMED Code(s): 32417762 (3) Fever Current Visit: Yes Status: Acute Code(s): R50.9 - FEVER, UNSPECIFIED SNOMED Code(s): 748852473
[2019-06-30] MEDS: ALPRAZolam 0.25 MG TAB PO PRN (17:35)
[2019-06-30] MEDS ORDERED: diphenhydrAMINE 50 MG/ML 1 ML VIAL IVP STA (17:45)
[2019-06-30] MEDS ORDERED: diphenhydrAMINE 50 MG/ML 1 ML VIAL IVP PRN (17:45)
[2019-06-30] MEDS: ACETAMINOPHEN TAB 325 MG TAB PO PRN (18:04)
[2019-06-30] MEDS: SODIUM CHLORIDE 0.9% 1,000 ML IV SCH ×2 (19:41→21:19)
[2019-06-30] MEDS ORDERED: NICOTINE 21MG/24HR PATCH TRANSDERM SCH (21:00)
--- NOTE | 2019-06-30 22:38 | P.PN ---
Progress Note - Text Progress Note Date: 06/30/19 Chief Complaint: Chills History of presenting complaint: This is a 38-year-old patient who follows with Dr. Mary Bowles/arie KELLOGG. Patient was just recently admitted at [facility] under Dr. Renetta Qureshi, where she presented with the pimples that progressed to become abscess on the chin extending to the face. It was drained and blood cultures were positive for MRSA. Patient was discharged on June 21 with IV vancomycin. Getting 450 mg every 8 hours. The chin is significantly improved. There is some local tenderness and discomfort. Patient denies any urinary symptoms. Patient is on her menstrual period. Has a bowel movement every 10-12 days. Slight cough. Patient also has a history of MS. Has stopped following with the neurologist because she felt to not getting cared for. 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 Cultures are negative. Patient seen by Dr. Mccarthy from hematology.-No hypercoagulable state. Today-patient was tried on vancomycin today per Dr. Paul. Did get a hypersensitivity reaction. Including itching etc. Benadryl was given. Review of systems: Was done for constitutional, cardiovascular, GI, pulmonary. relevant finding as above Active Medications Acetaminophen (Tylenol Tab) 650 mg PO Q6HR PRN PRN Reason: Mild Pain or Fever > 100.5 Last Admin: 06/30/19 18:04 Dose: 650 mg Documented by: Alprazolam (Xanax) 0.25 mg PO TID PRN PRN Reason: Anxiety Last Admin: 06/30/19 17:35 Dose: 0.25 mg Documented by: Diphenhydramine HCl (Benadryl) 25 mg IVP Q6HR PRN PRN Reason: Allergy Symptoms Heparin Sodium (Porcine) (Heparin) 5,000 unit SQ Q12HR [facility] Last Admin: 06/30/19 21:17 Dose: 5,000 unit Documented by: Hydromorphone HCl (Dilaudid) 0.5 mg IVP Q6HR PRN PRN Reason: Pain Last Admin: 06/28/19 08:04 Dose: 0.5 mg Documented by: Sodium Chloride (Saline 0.9%) 1,000 mls @ 75 mls/hr IV .[id number] [facility] Last Admin: 06/30/19 21:19 Dose: Not Given Documented by: Vancomycin HCl 1,250 mg/ (Sodium Chloride) 250 mls @ 125 mls/hr IVPB Q8HR [facility] Last Admin: 06/30/19 16:05 Dose: 125 mls/hr Documented by: Ketorolac Tromethamine (Toradol) 30 mg IVP Q6HR [facility] Stop: 07/02/19 13:07 Last Admin: 06/30/19 19:47 Dose: 30 mg Documented by: Multivitamins (Theragran) 1 each PO DAILY@1200 [facility] Last Admin: 06/30/19 12:16 Dose: 1 each Documented by: Naloxone HCl (Narcan) 0.2 mg IV Q2M PRN PRN Reason: Opioid Reversal Nicotine (Habitrol 21mg/24hr Patch) 1 patch TRANSDERM DAILY [facility] Last Admin: 06/30/19 21:17 Dose: 1 patch Documented by: Pantoprazole Sodium (Protonix) 40 mg PO AC-[id number] [facility] Last Admin: 06/30/19 06:32 Dose: 40 mg Documented by: Psyllium Hydrophilic Mucilloid (Metamucil) 6 gm PO BID [facility] Last Admin: 06/30/19 21:19 Dose: Not Given Documented by: Temazepam (Restoril) 15 mg PO HS PRN PRN Reason: Insomnia Last Admin: 06/30/19 21:43 Dose: 15 mg Documented by: Physical examination: VITAL SIGNS: 98.5, 75, 16, 11 2/69, 97% room air GENERAL: Sitting up in bed, comfortable EYES: Pupils equal. Conjunctiva normal. HEENT: External appearance of nose and ears normal, oral cavity grossly normal redness(, prominence on the chin-redness greatly improved NECK: JVD not raised; masses not palpable. HEART: First and second heart sounds are normal; no edema. LUNGS: Respiratory rate normal; mild wheezing. ABDOMEN: Soft, nontender, liver spleen not palpable, no masses palpable. PSYCH: [Alert and oriented x3; mood and affect very anxious l. INVESTIGATIONS, reviewed in the clinical context: Lupus anticoagulant APTT high, lupus anticoagulate PTT mix high, and I reviewed Will wiper relevant high, LA DD R VVT confirmed positive, VVT high, lupus hexagonal phase positive White count 8.2 hemoglobin 8.8 calcium 4.2 crit 0.54 Previous testing: White count 8.3 hemoglobin 12.3 progression 4.2 creatinine 0.78 Patient's blood cultures at [facility] were positive for MRSA CRP 70.7. Bone [id number] negative 2-D echo-unremarkable Assessment: -This is a patient who was at [facility] recently for about a week and had an abscess of the chin that was drained the blood cultures positive for MRSA. Patient was discharged on June 21 IV vancomycin, 50 mg every 8 for 10 days. Patient admitted with further fevers. The chin abscess is actually clinically resolved. Initially had a a sepsis picture. This could be a viral syndrome. -Chronic multiple sclerosis with optic neuritis not being followed by neurologist -Patient does not have a factor V Leyden mutation, protein C and S deficiency, as discussed with Dr. Mccarthy -Chronic nicotine dependence patient cigarette smoker -Anxiety disorder not otherwise specified -ALLERGIC reaction to vancomycin Plan: discuss with Dr. Paul today. Patient may have taken her vancomycin and a very short period of time at home. Hence trial vancomycin was done today. Patient did seem to have ALLERGIC reaction to the same.we'll discuss further with Dr. Paul. discharge held.
[2019-07-01] MEDS: KETOROLAC 30 MG/ML 1 ML VIAL IVP SCH ×3 (00:50→11:43)
[2019-07-01] MEDS: ACETAMINOPHEN TAB 325 MG TAB PO PRN (03:05)
[2019-07-01] MEDS: PANTOPRAZOLE 40 MG TABLET PO SCH (06:36)
[2019-07-01] MEDS: PSYLLIUM HUSK 100% 6 GM PACKET PO SCH (08:35)
[2019-07-01] MEDS: HEPARIN SODIUM,PORCINE 5,000 UNIT/ML 1 ML VIAL SQ SCH (08:36)
[2019-07-01] MEDS ORDERED: DAPTOmycin 500 MG in SODIUM CHLORIDE 0.9% 50 ML IVPB SCH (10:00)
[2019-07-01] MEDS: MULTIVITAMINS, THERA 1 EACH TAB PO SCH (11:43)
[2019-07-01 12:01] VITALS: BMI 26.1
[2019-07-01 14:57] LABS: Cardiolipin IgA Antibody <0.5 U/mL
[2019-07-01] MEDS: SODIUM CHLORIDE 0.9% 1,000 ML IV SCH (15:25)
[2019-07-01 15:41] VITALS: BP 112/70; PULSE 80; RESP 18; TEMP 97.5
--- NOTE | 2019-07-01 16:05 | P.PN ---
Subjective Progress Note Date: 07/01/19 38-year-old woman who is known to this service from her recent hospitalization at the outside hospital. There she had difficulty with a significant abscess that had formed on her chin to the left side. There was extensive and required drainage from the surgeon. She is evidence of positive blood cultures and MRSA was isolated. She eventually was discharged home on intravenous vancomycin therapy and doing relatively well. She had improvement to the chin now presents to Hospital feeling very poorly. She relates that she developed high-grade fevers chills rigors and felt extremely poorly. She presents to Hospital. 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 She relates that she was compliant with her antibiotic therapy as a well- developed high-grade fevers and felt extremely poorly. 06/27/2019 the patient had a migraine is now feeling somewhat better with that medication. Her high-grade fevers chills and general malaise has improved greatly since coming to hospital. She's now been more than a day without a fever. Other than the headache she has no other new acute complaints. 06/28/2019 the patient was feeling somewhat better but now is developed sudden headaches, but her fevers have improved. Number chills or rigors. Chin is feeling better. Headache is made her have some nausea but no emesis. 06/29/2019 patient now feels remarkably better. His of steroid is Toradol her severe headaches have completely resolved. Energy level is improved. Pain is improved overall. Looks for to discharge to home. 06/30/2019 the patient is starting to feel better, her fever seems resolved chills or resolves and the chin feels better. 07/01/2019 Edda to feel better today. The patient was challenged again with vancomycin therapy yesterday. The diffusion time was doubled and despite this approximately an hour to the infusion the nursing staff relate the patient developed high-grade fever chills generalized r and felt very poorly. She had another significant vancomycin reaction it appears to be ALLERGIC in nature. Vancomycin was discontinued and daptomycin has been started again. Objective - Vital Signs Vital signs: Vital Signs Temp 97.5 F L 07/01/19 15:39 Pulse 80 07/01/19 15:39 Resp 18 07/01/19 15:39 BP 112/70 07/01/19 15:39 Pulse Ox 99 12/13/19 15:39 Intake & Output 06/30/19 07/01/19 07/01/19 18:59 06:59 18:59 Intake Total 800 1401 Balance 800 1401 Weight 68.946 kg Intake: Oral 800 1401 Other: # Voids 3 1 - Exam 38-year-old female now markedly improved with resolution of her headache. HEENT: Anicteric conjunctiva are pink and moist nasal mucosa grossly intact without significant lesions, there is no thrush. The recent abscess on the left side of the chin is generally resolved. There is only some residual minimal tissue induration with no fluctuance or crepitances and it is not very tender the erythema is down to just a light pink Neck: The neck is supple without significant lymphadenopathy or thyromegaly. Lungs: Good bilateral air entry without significant crackles or wheezing. There is no significant bronchial sounds. There is no egophony or dullness. Heart: Regular rate and rhythm with an audible S1-S2, no S3 no S4. There is no significant murmur click or rub, PMI was nondisplaced. Abdomen: Positive bowel sounds soft and nontender without palpable masses or organomegaly. There was no guarding or rebound. Extremities: The upper extremities have excellent pulses they are symmetric, no significant petechiae or telangiectasia. No splinter hemorrhages were noted. The lower extremities are free from significant edema. The peripheral pulses were 2+ and symmetric. Neuro: Awake alert oriented to person place and time. There are no acute new gross focal sensory motor deficits. - Labs CBC & Chem 7: 06/27/19 08:22 06/27/19 08:22 Labs: Laboratory Results WBC 8.2 k/uL (3.8-10.6) 06/27/19 08:22 RBC 2.86 m/uL (3.80-5.40) L 06/27/19 08:22 Hgb 8.8 gm/dL (11.4-16.0) L 06/27/19 08:22 Hct 26.7 % (34.0-46.0) L 06/27/19 08:22 MCV 93.3 fL (80.0-100.0) 06/27/19 08:22 MCH 30.8 pg (25.0-35.0) 06/27/19 08:22 MCHC 33.1 g/dL (31.0-37.0) 06/27/19 08:22 RDW 13.4 % (11.5-15.5) 06/27/19 08:22 Plt Count 204 k/uL (150-450) 06/27/19 08:22 Neutrophils % 59 % 06/27/19 08:22 Lymphocytes % 31 % 06/27/19 08:22 Monocytes % 4 % 06/27/19 08:22 Eosinophils % 3 % 06/27/19 08:22 Basophils % 0 % 06/27/19 08:22 Neutrophils # 4.8 k/uL (1.3-7.7) 06/27/19 08:22 Lymphocytes # 2.5 k/uL (1.0-4.8) 06/27/19 08:22 Monocytes # 0.3 k/uL (0-1.0) 06/27/19 08:22 Eosinophils # 0.2 k/uL (0-0.7) 06/27/19 08:22 Basophils # 0.0 k/uL (0-0.2) 06/27/19 08:22 Hypochromasia Slight 06/27/19 08:22 ESR 48 mm/hr (0-20) H 06/25/19 07:54 PT 9.6 sec (9.0-12.0) 06/23/19 12:00 INR 0.9 (<1.2) 06/23/19 12:00 APTT 28.2 sec (22.0-30.0) 06/23/19 12:00 Lupus Anticoag aPTT 64 Sec(s) (<43) H 06/28/19 08:30 Lupus Anticoag PTT Mix 55 Sec(s) (<43) H 06/28/19 08:30 Dil Will Viper Venom 55 Sec(s) (<44) H 06/28/19 08:30 LA dRVVT Confirm Positive (Negative) H 06/28/19 08:30 dRVVT 50:50 45 Sec(s) (<44) H 06/28/19 08:30 Lupus Hexagonal Phase Positive (Negative) H 06/28/19 08:30 Lupus Anticoag Interp SEE BELOW 06/28/19 08:30 Sodium 137 mmol/L (137-145) 06/27/19 08:22 Potassium 4.2 mmol/L (3.5-5.1) 06/27/19 08:22 Chloride 106 mmol/L (98-107) 06/27/19 08:22 Carbon Dioxide 22 mmol/L (22-30) 06/27/19 08:22 Anion Gap 9 mmol/L 06/27/19 08:22 BUN 11 mg/dL (7-17) 06/27/19 08:22 Creatinine 0.54 mg/dL (0.52-1.04) 06/27/19 08:22 Est GFR (CKD-EPI)AfAm >90 (>60 ml/min/1.73 sqM) 06/27/19 08:22 Est GFR (CKD-EPI)NonAf >90 (>60 ml/min/1.73 sqM) 06/27/19 08:22 Glucose 138 mg/dL (74-99) H 06/27/19 08:22 Plasma Lactic Acid Erik 1.5 mmol/L (0.7-2.0) 06/24/19 08:47 Calcium 8.2 mg/dL (8.4-10.2) L 06/27/19 08:22 Total Bilirubin 0.4 mg/dL (0.2-1.3) 06/23/19 12:00 AST 28 U/L (14-36) 06/23/19 12:00 ALT 30 U/L (9-52) 06/23/19 12:00 Alkaline Phosphatase 104 U/L (38-126) 06/23/19 12:00 C-Reactive Protein 70.7 mg/L (<10.0) H 06/25/19 07:54 Total Protein 7.8 g/dL (6.3-8.2) 06/23/19 12:00 Albumin 4.3 g/dL (3.5-5.0) 06/23/19 12:00 Urine Color Light Yellow 06/23/19 12:09 Urine Appearance Clear (Clear) 06/23/19 12:09 Urine pH 6.0 (5.0-8.0) 06/23/19 12:09 Ur Specific Walker 1.014 (1.001-1.035) 06/23/19 12:09 Urine Protein Negative (Negative) 06/23/19 12:09 Urine Glucose (UA) Negative (Negative) 06/23/19 12:09 Urine Ketones Trace (Negative) H 06/23/19 12:09 Urine Blood Small (Negative) H 06/23/19 12:09 Urine Nitrite Negative (Negative) 06/23/19 12:09 Urine Bilirubin Negative (Negative) 06/23/19 12:09 Urine Urobilinogen <2.0 mg/dL (<2.0) 06/23/19 12:09 Ur Leukocyte Esterase Negative (Negative) 06/23/19 12:09 Urine RBC 2 /hpf (0-5) 06/23/19 12:09 Urine WBC 1 /hpf (0-5) 06/23/19 12:09 Ur Squamous Epith Cells 1 /hpf (0-4) 06/23/19 12:09 Urine Mucus Rare /hpf (None) H 06/23/19 12:09 Random Vancomycin 20.7 ug/mL 06/23/19 12:00 Anti-Cardiolipin IgG Ab <1.6 U/mL 06/28/19 08:30 Cardiolipin IgG Interp NEGATIVE (NEGATIVE) 06/28/19 08:30 Anti-Cardiolipin IgA Ab <0.5 U/mL 06/28/19 08:30 Cardiolipin IgA Interp NEGATIVE (NEGATIVE) 06/28/19 08:30 Anti-Cardiolipin IgM Ab 1.5 U/mL 06/28/19 08:30 Cardiolipin IgM Interp NEGATIVE (NEGATIVE) 06/28/19 08:30 Influenza Type A RNA Not Detected (Not Detectd) 06/23/19 12:00 Influenza Type B (PCR) Not Detected (Not Detectd) 06/23/19 12:00 Miscellaneous Test Beta-2 Glycoprotein 06/28/19 08:30 Misc Test Result See Comment 06/28/19 08:30 Microbiology 06/23/19 12:00 Blood Blood Culture - Final No Growth after 144 hours Assessment and Plan (1) MRSA bacteremia Narrative/Plan: 38-year-old woman who has a history of recent abscess to her left chin with staph aureus bacteremia which was MRSA. After being improvement to the outside hospital she was discharged home on outpatient intravenous antibiotic therapy with vancomycin. At home she was tolerated well over to the sudden onset of the recurrent fever chills malaise and feeling quite poorly overall. The Chin though is definitely improving, The etiology of the fever at this point in time could be related to the underlying infection with MRSA bacteremia. However she seemed to be having clinical improvement. A secondary infection is of concern. She was checked for influenza and was negative, although with her sinus congestion respiratory congestion and a bit of a cough and fever and body aches appear to be more of a viral infection superimposed upon the MRSA bacteremia. Concern that she was having an adverse reaction to vancomycin, causing this has now been transitioned to daptomycin therapy. She was also on Unasyn which is discontinued in case she is having difficulties with that. Given that she is having some ongoing fevers will add and Azactam until we have further cultures which will hopefully be in the next few days determine how she is doing. 06/27/2019 with antibiotic changes she is not doing considerably better. Her fever is resolving headache is feeling considerably better. She is due to complete the treatment of her MRSA bacteremia that appears to have come from the significant abscess to her chin which is now resolved. Or case management team to finish her course of outpatient intravenous antibiotic therapy with daptomycin. She's also been Azactam which if she is afebrile tomorrow with ongoing negative cultures will likely discontinue. Significant reaction to vancomycin therapy was likely etiology of her symptom complex at admission may also have had an acute viral process that was not influenza. Being ready for discharge home soon. 06/28/2019 the patient had severe headache which is now considerably. Her fevers have resolved and she feels better overall except for headache with a changed to daptomycin. Clinically it appears that she is markedly improved however still having significant headache. Dissuades her history of prior migraines. Going on for some time and we'll do a 1 time dose of Solu-Medrol zuri ng with Toradol to see if we can impact her migraines have her feeling better. Working with the discharge planners to complete her course of daptomycin for MRSA bacteremia. Patient is now much improved. Her headache is responded very well single Solu- Medrol with ongoing Toradol is allowed complete resolution of her headache. She was discharged home to Toradol can be transitioned to oral for this comfort at home. She is having arrangements made to complete her course of intravenous antibiotic therapy with daptomycin. She developed snippy and toxic vancomycin admission which is now resolved. It is possible that she had reactivity due to the complete dose of vancomycin given over 10 minutes instead of over lower half. Regardless she's noted while on daptomycin and must be used to complete her course of therapy. 06/30/2019 the patient is certainly improved since admission. Fevers chills malaise have all improved. She's also had complete resolution of her severe headache. She has done well on daptomycin therapy. However pathogen is MRSA, and the Vanco MAUREEN is adequate. Consequently her insurance company is not allowing daptomycin for home. As noted yesterday the patient did accidentally infuse the entire dose of vancomycin within about 10 minutes. It is likely her acute reaction was to the rapid infusion of the antibiotic. Consequently another dose of be tried in an extra period of time. Will be given over the usual timeframe. She tolerates this well she will then complete her course of vancomycin the home setting. 28 days is planned because of the MRSA bacteremia she had is noted from the other facility. Discussed with case management in apparently her vancomycin as she has at home is still not immobility utilize that. Nursing staff here will reeducate on how to infuse her therapy before her discharge today. 07/01/2019 patient is now showing some further improvement now that the vancomycin was discontinued and she was treated with a dose of Benadryl. The rash and low-grade fever she was having is not completely resolved with the discontinuation of the antibiotic. She has received a dose of daptomycin with no complication. I then a [id number] with[employer] anve no authorizing daptomycin therapy for another 2 weeks to complete treatment of her MRSA bacteremia came from the significant infection from the skin and soft tissue of her face and chin. That site is doing very well at this point in time. She understands the importance of completing a course of antibiotic therapy. Current Visit: Yes Status: Acute Code(s): R78.81 - BACTEREMIA SNOMED Code(s): 12777800875483235 (2) Cellulitis of chin Current Visit: Yes Status: Acute Code(s): L03.211 - CELLULITIS OF FACE SNOMED Code(s): 04692518 (3) Fever Current Visit: Yes Status: Acute Code(s): R50.9 - FEVER, UNSPECIFIED SNOMED Code(s): 220371775
[2019-07-01] MEDS ORDERED: NICOTINE 21MG/24HR PATCH TRANSDERM SCH (21:00)
--- NOTE | 2019-07-02 14:02 | P.DS ---
Providers Date of admission: 06/25/19 13:06 Expected date of discharge: 07/01/19 Attending physician: Brian Humphrey Consults: 06/23/19 13:22 Consult Physician Urgent Consulting Provider: Ananda Paul Consult Reason/Comments: Cellulitis of the chin Do you want consulting provider notified?: Yes 06/27/19 07:54 Consult Physician Urgent Consulting Provider: Ricky Mccarthy Consult Reason/Comments: factor V leiden deficincy and h/o PE 2 y ago, with nonadherence to Xarelto Do you want consulting provider notified?: Yes Primary care physician: Davionradha Bowles [facility] Course: Chief Complaint: Chills History of presenting complaint: This is a 38-year-old patient who follows with Dr. Mary Bowles/arie KELLOGG. Patient was just recently admitted at [facility] under Dr. Renetta Qureshi, where she presented with the pimples that progressed to become abscess on the chin extending to the face. It was drained and blood cultures were positive for MRSA. Patient was discharged on June 21 with IV vancomycin. Getting 450 mg every 8 hours. The chin is significantly improved. There is some local tenderness and discomfort. Patient denies any urinary symptoms. Patient is on her menstrual period. Has a bowel movement every 10-12 days. Slight cough. Patient also has a history of MS. Has stopped following with the neurologist because she felt to not getting cared for. 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 Cultures are negative. Patient seen by Dr. Mccarthy from hematology.-No hypercoagulable state. Patient was given a trial of vancomycin. Again had a reaction to the same. Hence it was discontinued. Patient will complete a course of daptomycin at home. Patient also had a set of lupus studies done by Dr. Mccarthy.those were positive. But he needs to be repeated in 3 months time. I did call the patient at home after discussing Dr. Mccarthy at patient Minnie Mccarthy in 3 months time to have the test repeated. Also patient to have 325 mg of aspirin daily. Patient understands same. Otherwise patient doing well at the time of discharge. Discussion and discharge planning more than 35 minutes Consults: Dr. Paul from ID Dr. Mccarthy from hematology Physical examination: VITAL SIGNS: 97.5, 80, 18, 11 2/70, 99% room air GENERAL: Sitting up in bed, comfortable EYES: Pupils equal. Conjunctiva normal. HEENT: External appearance of nose and ears normal, oral cavity grossly normal redness(, prominence on the chin-redness greatly improved NECK: JVD not raised; masses not palpable. HEART: First and second heart sounds are normal; no edema. LUNGS: Respiratory rate normal; improved air entry. ABDOMEN: Soft, nontender, liver spleen not palpable, no masses palpable. PSYCH: [Alert and oriented x3; mood and affect very anxious l. INVESTIGATIONS, reviewed in the clinical context: Lupus anticoagulant APTT high, lupus anticoagulate PTT mix high, and I reviewed Will wiper relevant highKENYETTA DD R VVT confirmed positive, DR OVALLES high, lupus hexagonal phase positive White count 8.2 hemoglobin 8.8 calcium 4.2 crit 0.54 Previous testing: White count 8.3 hemoglobin 12.3 progression 4.2 creatinine 0.78 Patient's blood cultures at [facility] were positive for MRSA CRP 70.7. Bone umea-1-bnarc negative 2-D echo-unremarkable Assessment: -chin abscess.causing sepsis on presentation. -Acute respiratory viral syndrome -Chronic multiple sclerosis with optic neuritis not being followed by neurologist -Patient does not have a factor V Leyden mutation, protein C and S deficiency, as discussed with Dr. Mccarthy -Chronic nicotine dependence patient cigarette smoker -Anxiety disorder not otherwise specified -ALLERGIC reaction to vancomycin -Positive lupus anticoagulant testing. To be repeated in [address] Mccarthy. disposition: Home Patient Condition at Discharge: Stable Plan - Discharge Summary Discharge Rx Participant: No New Discharge Prescriptions: New Psyllium Husk 100% [Metamucil Packet] 6 gm PO BID #60 packet DAPTOmycin [Daptomycin] 500 mg IV DAILY #14 vial Nicotine 21Mg/24Hr Patch [Habitrol] 1 patch TRANSDERM HS #14 patch Continue Ibuprofen [Motrin Ib] 600 mg PO Q6H PRN PRN Reason: Pain Discontinued Vancomycin 1250mg/250ml 1,250 mg IV Q8H Discharge Medication List Ibuprofen [Motrin Ib] 600 mg PO Q6H PRN 06/23/19 [History] Psyllium Husk 100% [Metamucil Packet] 6 gm PO BID #60 packet 06/30/19 [Rx] DAPTOmycin [Daptomycin] 500 mg IV DAILY #14 vial 07/01/19 [Rx] Nicotine 21Mg/24Hr Patch [Habitrol] 1 patch TRANSDERM HS #14 patch 07/01/19 [Rx] Follow up Appointment(s)/Referral(s): Ananda Paul MD [STAFF PHYSICIAN] - 07/15/19 10:15 am [facility], [NON-STAFF] - Davion Bowles DO [Primary Care Provider] - 07/08/19 2:00 pm (To see the nurse practioner) [facility], [REFERRING] - Ambulatory/Diagnostic Orders: Basic Metabolic Panel [LAB.AMB] Location: None Selected Complete Blood Count w/diff [LAB.AMB] Location: None Selected Miscellaneous Lab Order [LAB.AMB] Location: None Selected Activity/Diet/Wound Care/Special Instructions: Regular diet as tolerated. Drink fluids. [facility] at [facility] [phone] PHONE NUMBER FOR HOME CARE AGENCY NURSE Follow up as scheduled Call your Dr sooner if return or worsening of the symptoms that brought you here or any concerns. activity as tolerated. Last received Daptomycin at 1000 Weekly labs to be drawn by home care Nurse as ordered on Discharge sheet Per Milly Lowe NP Discharge Disposition: HOME SELF-CARE
== END 2019-07-01 16:07 | disposition home health service (06) | DRG 872 ==
LOC: EC 11:10 → 4MS4W 13:22 → OBSVTOIN 06-25 13:06 → 6PED 06-29 11:37
PROVIDERS: ADMIT Hospitalist; ATTEND Hospitalist
DX: A41.02 Sepsis due to Methicillin resistant Staphylococcus aureus (principal); E87.1 Hypo-osmolality and hyponatremia; H46.9 Unspecified optic neuritis; L03.211 Cellulitis of face; G35 Multiple sclerosis; J06.9 Acute upper respiratory infection, unspecified; D63.8 Anemia in other chronic diseases classified elsewhere; F17.210 Nicotine dependence, cigarettes, uncomplicated; F41.9 Anxiety disorder, unspecified; G43.909 Migraine, unspecified, not intractable, without status migrainosus; M06.9 Rheumatoid arthritis, unspecified; T36.8X5A Adverse effect of other systemic antibiotics, initial encounter; I70.0 Atherosclerosis of aorta; M19.90 Unspecified osteoarthritis, unspecified site; R21 Rash and other nonspecific skin eruption; Z86.711 Personal history of pulmonary embolism; Z90.49 Acquired absence of other specified parts of digestive tract
CPT/HCPCS: 36415; 71046; 78315; 80048; 80053; 80202; 81001; 83605; 85025; 85598; 85610; 85613; 85652; 85730; 85732; 86140; 86146; 86147; 87040; 87502; 93005; 93306; 94760; 96361; 96365; 96366; 96367; 96374; 99285

== ENCOUNTER 2019-08-01 14:51 | Emergency (ER) | payer OTHER ==
[2019-08-01 15:18] VITALS: RESP 18; TEMP 97.7
--- NOTE | 2019-08-01 15:46 | ED ---
Female Urogenital HPI - General Chief complaint: Urogenital Stated complaint: possible UTI/ Time Seen by Provider: 08/01/19 15:32 Source: patient Mode of arrival: ambulatory Limitations: no limitations - History of Present Illness Initial comments: 38-year-old female with history of MRSA presenting today for chief complaint of dysuria or urgency frequency. Patient states for the past 3 days she has had dysuria urgency frequency. She states it feels like when she's had a UTI in the past. Patient denies fever or flulike symptoms. Patient states she is very mild low back pain. Patient denies any flank pain unilateral pain hematuria or history of kidney stones. Remaining review of systems negative upon arrival patient appears well nontoxic no signs of acute distress. HR initially elevated however repeat 99bpm. - Related Data Home Medications Medication Instructions Recorded Confirmed Ibuprofen [Motrin Ib] 600 mg PO Q6H PRN 06/23/19 06/23/19 Previous Rx's Medication Instructions Recorded Psyllium Husk 100% [Metamucil 6 gm PO BID #60 packet 06/30/19 Packet] DAPTOmycin [Daptomycin] 500 mg IV DAILY #14 vial 07/01/19 Nicotine 21Mg/24Hr Patch [Habitrol] 1 patch TRANSDERM HS #14 patch 07/01/19 Cephalexin [Keflex] 500 mg PO Q6HR 10 Days #40 cap 08/01/19 Allergies Allergy/AdvReac Type Severity Reaction Status Date / Time vancomycin Allergy Severe Rash/Hives Verified 08/01/19 15:16 Review of Systems ROS Statement: Those systems with pertinent positive or pertinent negative responses have been documented in the HPI. ROS Other: All systems not noted in ROS Statement are negative. Past Medical History Past Medical History: Blood Disorder, Eye Disorder, Rheumatoid Arthritis (RA) Additional Past Medical History / Comment(s): optic neuritis, multiple sclerosis,profiency s disorder, found in previous medical chart aortic calcification History of Any Multi-Drug Resistant Organisms: MRSA Date of last positivie culture/infection: 06/21/19 [facility] MDRO Source:: Cj Past Surgical History: Appendectomy Additional Past Surgical History / Comment(s): ectopic (2) Past Anesthesia/Blood Transfusion Reactions: No Reported Reaction Past Psychological History: Anxiety Smoking Status: Current every day smoker Past Alcohol Use History: None Reported Past Drug Use History: None Reported - Past Family History Father Family Medical History: No Reported History General Exam Limitations: no limitations Course Vital Signs 08/01/19 08/01/19 08/01/19 15:16 17:07 17:15 Temperature 97.7 F Pulse Rate 110 H 123 H 123 H Respiratory 18 18 18 Rate Blood Pressure 147/89 136/94 O2 Sat by Pulse 100 100 Oximetry 08/01/19 17:16 Temperature 97.7 F Pulse Rate 123 H Respiratory 18 Rate Blood Pressure 136/94 O2 Sat by Pulse 100 Oximetry Medical Decision Making - Medical Decision Making 38yo female presenting for dysuria. Positive nitrates with WBC. Patient has no unilateral flank pain. Patient has no fevers. Patient initial HR 110, repeat while I was in room 99. Patient has leukocytosis of 12.1. Patient appears nontoxic-no distress. Patient case discussed with Dr. German who was agreedable to IVP of rocephin and outpatient antibiotics. Upon review to sign chart I was not notified of patients discharge VS with HR of 123. - Lab Data Result diagrams: 08/01/19 15:58 08/01/19 15:58 Lab Results 08/01/19 08/01/19 08/01/19 Range/Units 15:58 15:58 15:58 WBC 12.2 H (3.8-10.6) k/uL RBC 4.48 (3.80-5.40) m/uL Hgb 13.2 (11.4-16.0) gm/dL Hct 40.8 (34.0-46.0) % MCV 91.0 (80.0-100.0) fL MCH 29.4 (25.0-35.0) pg MCHC 32.3 (31.0-37.0) g/dL RDW 13.6 (11.5-15.5) % Plt Count 392 (150-450) k/uL Neutrophils % 69 % Lymphocytes % 23 % Monocytes % 4 % Eosinophils % 1 % Basophils % 2 % Neutrophils # 8.4 H (1.3-7.7) k/uL Lymphocytes # 2.8 (1.0-4.8) k/uL Monocytes # 0.4 (0-1.0) k/uL Eosinophils # 0.2 (0-0.7) k/uL Basophils # 0.2 (0-0.2) k/uL Sodium 140 (137-145) mmol/L Potassium 4.4 (3.5-5.1) mmol/L Chloride 104 (98-107) mmol/L Carbon Dioxide 27 (22-30) mmol/L Anion Gap 9 mmol/L BUN 11 (7-17) mg/dL Creatinine 0.50 L (0.52-1.04) mg/dL Est GFR (CKD-EPI)AfAm >90 (>60 ml/min/1.73 sqM) Est GFR (CKD-EPI)NonAf >90 (>60 ml/min/1.73 sqM) Glucose 92 (74-99) mg/dL Calcium 9.6 (8.4-10.2) mg/dL Total Bilirubin 0.4 (0.2-1.3) mg/dL AST 23 (14-36) U/L ALT 16 (4-34) U/L Alkaline Phosphatase 91 (38-126) U/L Total Protein 8.3 H (6.3-8.2) g/dL Albumin 4.6 (3.5-5.0) g/dL Urine Color Yellow Urine Appearance Cloudy H (Clear) Urine pH 6.0 (5.0-8.0) Ur Specific [place] 1.022 (1.001-1.035) Urine Protein Trace H (Negative) Urine Glucose (UA) Negative (Negative) Urine Ketones Negative (Negative) Urine Blood Negative (Negative) Urine Nitrite Positive H (Negative) Urine Bilirubin Negative (Negative) Urine Urobilinogen <2.0 (<2.0) mg/dL Ur Leukocyte Esterase Small H (Negative) Urine RBC 2 (0-5) /hpf Urine WBC 24 H (0-5) /hpf Ur Squamous Epith Cells 1 (0-4) /hpf Amorphous Sediment Rare H (None) /hpf Urine Bacteria Many H (None) /hpf Urine Mucus Many H (None) /hpf Urine HCG, Qual (Not Detectd) 08/01/19 Range/Units 15:58 WBC (3.8-10.6) k/uL RBC (3.80-5.40) m/uL Hgb (11.4-16.0) gm/dL Hct (34.0-46.0) % MCV (80.0-100.0) fL MCH (25.0-35.0) pg MCHC (31.0-37.0) g/dL RDW (11.5-15.5) % Plt Count (150-450) k/uL Neutrophils % % Lymphocytes % % Monocytes % % Eosinophils % % Basophils % % Neutrophils # (1.3-7.7) k/uL Lymphocytes # (1.0-4.8) k/uL Monocytes # (0-1.0) k/uL Eosinophils # (0-0.7) k/uL Basophils # (0-0.2) k/uL Sodium (137-145) mmol/L Potassium (3.5-5.1) mmol/L Chloride (98-107) mmol/L Carbon Dioxide (22-30) mmol/L Anion Gap mmol/L BUN (7-17) mg/dL Creatinine (0.52-1.04) mg/dL Est GFR (CKD-EPI)AfAm (>60 ml/min/1.73 sqM) Est GFR (CKD-EPI)NonAf (>60 ml/min/1.73 sqM) Glucose (74-99) mg/dL Calcium (8.4-10.2) mg/dL Total Bilirubin (0.2-1.3) mg/dL AST (14-36) U/L ALT (4-34) U/L Alkaline Phosphatase (38-126) U/L Total Protein (6.3-8.2) g/dL Albumin (3.5-5.0) g/dL Urine Color Urine Appearance (Clear) Urine pH (5.0-8.0) Ur Specific [place] (1.001-1.035) Urine Protein (Negative) Urine Glucose (UA) (Negative) Urine Ketones (Negative) Urine Blood (Negative) Urine Nitrite (Negative) Urine Bilirubin (Negative) Urine Urobilinogen (<2.0) mg/dL Ur Leukocyte Esterase (Negative) Urine RBC (0-5) /hpf Urine WBC (0-5) /hpf Ur Squamous Epith Cells (0-4) /hpf Amorphous Sediment (None) /hpf Urine Bacteria (None) /hpf Urine Mucus (None) /hpf Urine HCG, Qual Not Detected (Not Detectd) Disposition Clinical Impression: UTI (urinary tract infection) Disposition: HOME SELF-CARE Condition: Good Instructions (If sedation given, give patient instructions): Urinary Tract Infection in Women (ED) Additional Instructions: Please use medication as discussed. Please follow-up with family doctor in the next 2 days. Please return to emergency room if the symptoms increase or worsen or for any other concerns. Prescriptions: Cephalexin [Keflex] 500 mg PO Q6HR 10 Days #40 cap Is patient prescribed a controlled substance at d/c from ED?: No Referrals: Davion Bowles DO [Primary Care Provider] - 1-2 days Time of Disposition: 16:46
[2019-08-01 16:41] LABS: Amorphous Sediment,Urine Rare /hpf; Appearance,Urine Cloudy (Clear); Bacteria,Urine Many /hpf; Bilirubin,Urine Negative (Negative); Blood,Urine Negative (Negative); Color,Urine Yellow; Glucose,Urine (UA) Negative (Negative); Ketones,Urine Negative (Negative); Leukocyte Esterase,Urine Small (Negative); Mucus,Urine Many /hpf; Nitrite,Urine Positive (Negative); Protein,Urine Trace (Negative); RBC,Urine 2 /hpf (0-5); Specific Gravity,Urine 1.022 (1.001-1.035); Squamous Epithelial Cell,Urine 1 /hpf (0-4); Urobilinogen,Urine <2.0 mg/dL (<2.0); WBC,Urine 24 /hpf (0-5)
[2019-08-01] MEDS ORDERED: cefTRIAXone IN SWFI 1,000 MG/10 ML SYRINGE IVP STA (16:45)
[2019-08-01 16:46] LABS: ALT 16 U/L (4-34); AST 23 U/L (14-36); African American GFR (CKD) >90 (>60 ml/min/1.73 sqM); Albumin 4.6 g/dL (3.5-5.0); Alkaline Phosphatase 91 U/L (38-126); Anion Gap 9 mmol/L; Blood Urea Nitrogen 11 mg/dL (7-17); Calcium 9.6 mg/dL (8.4-10.2); Carbon Dioxide 27 mmol/L (22-30); Chloride 104 mmol/L (98-107); Glucose 92 mg/dL (74-99); Non-African American GFR(CKD) >90 (>60 ml/min/1.73 sqM); Potassium 4.4 mmol/L (3.5-5.1); Sodium 140 mmol/L (137-145); Total Bilirubin 0.4 mg/dL (0.2-1.3); Total Protein 8.3 g/dL (6.3-8.2)
[2019-08-01 16:55] LABS: Basophils # (A) 0.2 k/uL (0-0.2); Basophils % (A) 2 %; Eosinophils # (A) 0.2 k/uL (0-0.7); Eosinophils % (A) 1 %; HCT 40.8 % (34.0-46.0); HGB 13.2 gm/dL (11.4-16.0); Lymphocytes # (A) 2.8 k/uL (1.0-4.8); Lymphocytes % (A) 23 %; MCH 29.4 pg (25.0-35.0); MCHC 32.3 g/dL (31.0-37.0); Monocytes # (A) 0.4 k/uL (0-1.0); Monocytes % (A) 4 %; Neutrophils # (A) 8.4 k/uL (1.3-7.7); Neutrophils % (A) 69 %; Platelet Count 392 k/uL (150-450); RBC 4.48 m/uL (3.80-5.40); RDW 13.6 % (11.5-15.5); WBC 12.2 k/uL (3.8-10.6)
[2019-08-01 17:09] VITALS: BP 136/94; PULSE 123
== END 2019-08-01 17:17 | disposition home or self-care (01) ==
LOC: EC 14:51
DX: N39.0 Urinary tract infection, site not specified (principal); F17.200 Nicotine dependence, unspecified, uncomplicated; Z88.1 Allergy status to other antibiotic agents; Z86.14 Personal history of Methicillin resistant Staphylococcus aureus infection
CPT/HCPCS: 36415; 80053; 85025; 81001; 81025; 87086; 87077; 87186; 99283; 96374; J0696

== ENCOUNTER 2019-11-09 03:01 | Emergency (ER) | payer OTHER ==
[2019-11-09 03:13] VITALS: RESP 20; TEMP 97.7
[2019-11-09] MEDS ORDERED: IBUPROFEN 600 MG TAB PO STA (03:13)
[2019-11-09] MEDS ORDERED: HYDROcodone/APAP 5-325MG 1 EACH TAB PO STA (03:14)
--- NOTE | 2019-11-09 03:19 | ED ---
Fall HPI - General Chief Complaint: Fall Stated Complaint: fall,shoulder pain Time Seen by Provider: 11/09/19 03:05 Source: patient, EMS Mode of arrival: EMS - History of Present Illness Initial Comments: This patient is a 39-year-old woman who presents to be evaluated for left shoulder pain. The patient states she had tripped over a basket in the dark while trying to walk through her home. She landed on the posterior aspect of her left shoulder. She states that she felt a pop and then she was not able to lower her left arm. Patient phoned EMS as she [facility] and they brought her here. The patient denies previous injury or surgery to the left arm. No weakness or numbness to the forearm or hand. 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 Fall Witnessed: no Place Fall Occurred: home Loss of Consciousness: none Prolonged Down Time?: no Location - Extremities: Left: Shoulder Severity: moderate Quality: sharp Context: tripped/slipped - Related Data Home Medications Medication Instructions Recorded Confirmed Ibuprofen [Motrin Ib] 600 mg PO Q6H PRN 06/23/19 06/23/19 Previous Rx's Medication Instructions Recorded Psyllium Husk 100% [Metamucil 6 gm PO BID #60 packet 06/30/19 Packet] DAPTOmycin [Daptomycin] 500 mg IV DAILY #14 vial 07/01/19 Nicotine 21Mg/24Hr Patch [Habitrol] 1 patch TRANSDERM HS #14 patch 07/01/19 Cephalexin [Keflex] 500 mg PO Q6HR 10 Days #40 cap 08/01/19 Hydrocodone/Acetaminophen [[place] 1 each PO Q6HR PRN #15 tab 11/09/19 5-325] Allergies Allergy/AdvReac Type Severity Reaction Status Date / Time vancomycin Allergy Severe Rash/Hives Verified 08/01/19 15:16 Review of Systems ROS Statement: Those systems with pertinent positive or pertinent negative responses have been documented in the HPI. ROS Other: All systems not noted in ROS Statement are negative. Constitutional: Denies: weakness Respiratory: Denies: dyspnea Cardiovascular: Denies: chest pain Musculoskeletal: Reports: as per HPI, arthralgia Neurological: Denies: weakness, numbness, paresthesias Past Medical History Past Medical History: Blood Disorder, Eye Disorder, Rheumatoid Arthritis (RA) Additional Past Medical History / Comment(s): optic neuritis, multiple sclerosis,profiency s disorder, found in previous medical chart aortic calcification History of Any Multi-Drug Resistant Organisms: MRSA Date of last positivie culture/infection: 06/21/19 [facility] MDRO Source:: [place] Past Surgical History: Appendectomy Additional Past Surgical History / Comment(s): ectopic (2) Past Anesthesia/Blood Transfusion Reactions: No Reported Reaction Past Psychological History: Anxiety Smoking Status: Current every day smoker Past Alcohol Use History: None Reported Past Drug Use History: None Reported - Past Family History Father Family Medical History: No Reported History General Exam Limitations: no limitations General appearance: alert, in no apparent distress Head exam: Present: atraumatic, normocephalic Neck exam: Present: normal inspection, full ROM. Absent: tenderness Respiratory exam: Present: normal lung sounds bilaterally. Absent: respiratory distress, wheezes, rales, rhonchi, stridor Cardiovascular Exam: Present: regular rate, normal rhythm, normal heart sounds. Absent: systolic murmur, diastolic murmur, rubs, gallop Left Shoulder Exam: Present: tenderness, other (Patient holding left arm in 90 abduction.). Absent: full ROM, swelling, abrasion, laceration, ecchymosis, crepitus Upper Arm exam: Present: normal inspection. Absent: tenderness, swelling, abrasion, laceration, ecchymosis, deformity Elbow exam: Present: normal inspection, full ROM. Absent: tenderness, swelling, abrasion, laceration, ecchymosis Forearm Wrist exam: Present: normal inspection, full ROM. Absent: tenderness, swelling, abrasion, laceration, ecchymosis Hand Wrist exam: Present: normal inspection, full ROM. Absent: tenderness, swelling, abrasion, laceration, ecchymosis Neuro motor exam: Present: wrist extension intact, thumb opposition intact, th umb IP flexion intact, thumb adduction intact, fingers 2-5 abduction intact Vascular: Present: normal capillary refill, radial pulse (Normal) Back exam: Absent: tenderness, CVA tenderness (R), CVA tenderness (L), vertebral tenderness Neurological exam: Present: alert. Absent: motor sensory deficit Skin exam: Present: warm, dry, intact, normal color. Absent: rash Course Vital Signs 11/09/19 03:05 Temperature 97.7 F Pulse Rate 96 Respiratory 20 Rate Blood Pressure 132/85 O2 Sat by Pulse 96 Oximetry Disposition Clinical Impression: Fall, Shoulder injury Disposition: HOME SELF-CARE Condition: Good Instructions (If sedation given, give patient instructions): Rotator Cuff Injury (ED) Prescriptions: Hydrocodone/Acetaminophen [[place] 5-325] 1 each PO Q6HR PRN #15 tab PRN Reason: Pain Is patient prescribed a controlled substance at d/c from ED?: Yes When asked, does pt state using other controlled substances?: No If prescribed controlled substance>3 days was MAPS reviewed?: Prescribed <3 Days If opioid is for acute pain is fill amount 7 days or less?: Yes If Rx opioid, was Start Talking consent form obtained?: Yes Referrals: None,Stated [Primary Care Provider] - 1-2 days Christiano Siddiqui, DO [Medical Doctor] - 1-2 days
--- NOTE | 2019-11-09 03:44 | XR ---
EXAMINATION TYPE: XR scapula LT DATE OF EXAM: 11/09/2019 COMPARISON: NONE HISTORY: Shoulder pain TECHNIQUE: 3 views FINDINGS: I see no fracture nor dislocation. Glenohumeral joint is intact. Soft tissues appear normal . IMPRESSION: Negative left scapula exam.
--- NOTE | 2019-11-09 03:46 | XR ---
EXAMINATION TYPE: XR shoulder complete LT DATE OF EXAM: 11/09/2019 COMPARISON: NONE HISTORY: Pain after falling TECHNIQUE: 3 views FINDINGS: There is no evidence of fracture nor dislocation. Joint spaces are fairly normal. IMPRESSION: Negative left shoulder exam.
[2019-11-09 04:36] VITALS: BP 130/86; PULSE 74
== END 2019-11-09 04:34 | disposition home or self-care (01) ==
LOC: EC 03:01
DX: S49.92XA Unspecified injury of left shoulder and upper arm, initial encounter (principal); F17.200 Nicotine dependence, unspecified, uncomplicated; Z86.14 Personal history of Methicillin resistant Staphylococcus aureus infection; Z87.39 Personal history of other diseases of the musculoskeletal system and connective tissue; Z88.1 Allergy status to other antibiotic agents; W18.09XA Striking against other object with subsequent fall, initial encounter; Y93.01 Activity, walking, marching and hiking; Y92.009 Unspecified place in unspecified non-institutional (private) residence as the place of occurrence of the external cause
CPT/HCPCS: 99283

== ENCOUNTER 2020-02-17 02:20 | Observation (INO) | payer OTHER ==
--- NOTE | 2020-02-17 02:50 | ED ---
Dizziness HPI - General Chief Complaint: Dizziness Stated Complaint: Dizzy Time Seen by Provider: 02/17/20 02:25 Source: patient, RN notes reviewed, old records reviewed Mode of arrival: wheelchair Limitations: no limitations - History of Present Illness Initial Comments: This is a 39-year-old female who presents for evaluation patient to the ER for evaluation regards to significant cellulitis and area of abscess. Patient has history of MRSA comes here today for evaluation of groin abscess and folliculitis she states she had I&D and Hospital earlier today records will be obtained at significant drainage and patient presents for reevaluation secondary to increasing pain to that area and swelling redness that is now spreading up towards her abdominal area. Denying fevers, patient is a poor historian secondary to probably suspected drug use MD Complaint: other (Abscess to groin) -: hour(s) History of Same: Yes History of Trauma: No Severity: moderate Worsens With: nothing Associated Symptoms: denies other symptoms - Related Data Home Medications Medication Instructions Recorded Confirmed Ibuprofen [Motrin Ib] 600 mg PO Q6H PRN 06/23/19 06/23/19 Previous Rx's Medication Instructions Recorded Psyllium Husk 100% [Metamucil 6 gm PO BID #60 packet 06/30/19 Packet] DAPTOmycin [Daptomycin] 500 mg IV DAILY #14 vial 07/01/19 Nicotine 21Mg/24Hr Patch [Habitrol] 1 patch TRANSDERM HS #14 patch 07/01/19 Cephalexin [Keflex] 500 mg PO Q6HR 10 Days #40 cap 08/01/19 Hydrocodone/Acetaminophen [[place] 1 each PO Q6HR PRN #15 tab 11/09/19 5-325] Allergies Allergy/AdvReac Type Severity Reaction Status Date / Time vancomycin Allergy Severe Rash/Hives Verified 02/17/20 02:29 Review of Systems ROS Statement: Those systems with pertinent positive or pertinent negative responses have been documented in the HPI. ROS Other: All systems not noted in ROS Statement are negative. Past Medical History Past Medical History: Blood Disorder, Eye Disorder, Rheumatoid Arthritis (RA) Additional Past Medical History / Comment(s): optic neuritis, multiple sclerosis,profiency s disorder, found in previous medical chart aortic calcif ication History of Any Multi-Drug Resistant Organisms: MRSA Date of last positivie culture/infection: 06/21/19 [facility] MDRO Source:: Cj Past Surgical History: Appendectomy Additional Past Surgical History / Comment(s): ectopic (2) Past Anesthesia/Blood Transfusion Reactions: No Reported Reaction Past Psychological History: Anxiety Smoking Status: Current every day smoker Past Alcohol Use History: None Reported Past Drug Use History: None Reported - Past Family History Father Family Medical History: No Reported History General Exam Limitations: no limitations General appearance: alert, in no apparent distress Head exam: Present: atraumatic, normocephalic, normal inspection Eye exam: Present: normal appearance, PERRL, EOMI. Absent: scleral icterus, conjunctival injection, periorbital swelling ENT exam: Present: normal exam, mucous membranes moist Neck exam: Present: normal inspection. Absent: tenderness, meningismus, lymphadenopathy Respiratory exam: Present: normal lung sounds bilaterally. Absent: respiratory distress, wheezes, rales, rhonchi, stridor Cardiovascular Exam: Present: normal rhythm, tachycardia, normal heart sounds. Absent: systolic murmur, diastolic murmur, rubs, gallop, clicks GI/Abdominal exam: Present: soft, normal bowel sounds. Absent: distended, tenderness, guarding, rebound, rigid External exam: Present: erythema, swelling, other (She does have area of incision which is draining but significant surrounding cellulitis) Extremities exam: Present: normal inspection, full ROM, normal capillary refill. Absent: tenderness, pedal edema, joint swelling, calf tenderness Back exam: Present: normal inspection Neurological exam: Present: alert, oriented X3, CN II-XII intact Psychiatric exam: Present: normal affect, normal mood Skin exam: Present: warm, dry, intact, normal color. Absent: rash Course Vital Signs 02/17/20 02:25 Temperature 98.4 F Pulse Rate 112 H Respiratory 18 Rate Blood Pressure 132/89 O2 Sat by Pulse 99 Oximetry - Reevaluation(s) Reevaluation #1: 02/17/20 04:11 Medical records reviewed Reevaluation #2: 02/17/20 04:12 Records obtained from [facility] showing I&D of incision and abscess EKG Findings - EKG Comments: EKG Findings:: EKG is sinus rhythm 97, AL 126 QRS 80 QTc 434 Medical Decision Making - Medical Decision Making 31 female to be admitted for recurrent abscess of right groin area, patient place on IV antibiotics will be admitted for surgical consultation - Lab Data Result diagrams: 02/17/20 03:18 02/17/20 03:18 Lab Results 02/17/20 02/17/20 02/17/20 Range/Units 03:18 03:18 03:18 WBC 15.3 H (3.8-10.6) k/uL RBC 4.11 (3.80-5.40) m/uL Hgb 12.1 (11.4-16.0) gm/dL Hct 38.3 (34.0-46.0) % MCV 93.2 (80.0-100.0) fL MCH 29.5 (25.0-35.0) pg MCHC 31.7 (31.0-37.0) g/dL RDW 12.1 (11.5-15.5) % Plt Count 325 (150-450) k/uL Neutrophils % 77 % Lymphocytes % 16 % Monocytes % 4 % Eosinophils % 2 % Basophils % 1 % Neutrophils # 11.7 H (1.3-7.7) k/uL Lymphocytes # 2.4 (1.0-4.8) k/uL Monocytes # 0.6 (0-1.0) k/uL Eosinophils # 0.3 (0-0.7) k/uL Basophils # 0.1 (0-0.2) k/uL PT 9.3 (9.0-12.0) sec INR 0.9 (<1.2) APTT 24.6 (22.0-30.0) sec Sodium 137 (137-145) mmol/L Potassium 4.1 (3.5-5.1) mmol/L Chloride 102 (98-107) mmol/L Carbon Dioxide 26 (22-30) mmol/L Anion Gap 9 mmol/L BUN 21 H (7-17) mg/dL Creatinine 0.76 (0.52-1.04) mg/dL Est GFR (CKD-EPI)AfAm >90 (>60 ml/min/1.73 sqM) Est GFR (CKD-EPI)NonAf >90 (>60 ml/min/1.73 sqM) Glucose 94 (74-99) mg/dL Calcium 9.4 (8.4-10.2) mg/dL Phosphorus 5.1 H (2.5-4.5) mg/dL Magnesium 2.0 (1.6-2.3) mg/dL Total Bilirubin 0.4 (0.2-1.3) mg/dL AST 17 (14-36) U/L ALT 17 (4-34) U/L Alkaline Phosphatase 86 (38-126) U/L Creatine Kinase 65 (30-135) U/L Troponin I (0.000-0.034) ng/mL NT-Pro-B Natriuret Pep pg/mL Total Protein 7.2 (6.3-8.2) g/dL Albumin 4.3 (3.5-5.0) g/dL Urine Opiates Screen (NotDetected) Ur Oxycodone Screen (NotDetected) Urine Methadone Screen (NotDetected) Ur Propoxyphene Screen (NotDetected) Ur Barbiturates Screen (NotDetected) U Tricyclic Antidepress (NotDetected) Ur Phencyclidine Scrn (NotDetected) Ur Amphetamines Screen (NotDetected) U Methamphetamines Scrn (NotDetected) U Benzodiazepines Scrn (NotDetected) Urine Cocaine Screen (NotDetected) U Marijuana (THC) Screen (NotDetected) 02/17/20 02/17/20 02/17/20 Range/Units 03:18 03:20 03:55 WBC (3.8-10.6) k/uL RBC (3.80-5.40) m/uL Hgb (11.4-16.0) gm/dL Hct (34.0-46.0) % MCV (80.0-100.0) fL MCH (25.0-35.0) pg MCHC (31.0-37.0) g/dL RDW (11.5-15.5) % Plt Count (150-450) k/uL Neutrophils % % Lymphocytes % % Monocytes % % Eosinophils % % Basophils % % Neutrophils # (1.3-7.7) k/uL Lymphocytes # (1.0-4.8) k/uL Monocytes # (0-1.0) k/uL Eosinophils # (0-0.7) k/uL Basophils # (0-0.2) k/uL PT (9.0-12.0) sec INR (<1.2) APTT (22.0-30.0) sec Sodium (137-145) mmol/L Potassium (3.5-5.1) mmol/L Chloride (98-107) mmol/L Carbon Dioxide (22-30) mmol/L Anion Gap mmol/L BUN (7-17) mg/dL Creatinine (0.52-1.04) mg/dL Est GFR (CKD-EPI)AfAm (>60 ml/min/1.73 sqM) Est GFR (CKD-EPI)NonAf (>60 ml/min/1.73 sqM) Glucose (74-99) mg/dL Calcium (8.4-10.2) mg/dL Phosphorus (2.5-4.5) mg/dL Magnesium (1.6-2.3) mg/dL Total Bilirubin (0.2-1.3) mg/dL AST (14-36) U/L ALT (4-34) U/L Alkaline Phosphatase (38-126) U/L Creatine Kinase (30-135) U/L Troponin I <0.012 (0.000-0.034) ng/mL NT-Pro-B Natriuret Pep 42 pg/mL Total Protein (6.3-8.2) g/dL Albumin (3.5-5.0) g/dL Urine Opiates Screen Not Detected (NotDetected) Ur Oxycodone Screen Not Detected (NotDetected) Urine Methadone Screen Not Detected (NotDetected) Ur Propoxyphene Screen Not Detected (NotDetected) Ur Barbiturates Screen Not Detected (NotDetected) U Tricyclic Antidepress Not Detected (NotDetected) Ur Phencyclidine Scrn Not Detected (NotDetected) Ur Amphetamines Screen Detected H (NotDetected) U Methamphetamines Scrn Not Detected (NotDetected) U Benzodiazepines Scrn Detected H (NotDetected) Urine Cocaine Screen Not Detected (NotDetected) U Marijuana (THC) Screen Not Detected (NotDetected) - Radiology Data Radiology results: report reviewed (CT pelvis shows cellulitis no discrete abscess), image reviewed Disposition Clinical Impression: Pelvic cellulitis, Labial abscess Disposition: ADMITTED IP TO THIS [facility] Condition: Good Is patient prescribed a controlled substance at d/c from ED?: No Referrals: Nonstaff,Physician [REFERRING] - 1-2 days
[2020-02-17] MEDS ORDERED: SODIUM CHLORIDE 0.9% 1,000 ML IV STA (03:00)
[2020-02-17] MEDS ORDERED: AMPICILLIN-SULBACTAM 3 GM in SODIUM CHLORIDE 0.9% 100 ML IVPB STA (03:01)
[2020-02-17] MEDS ORDERED: CLINDAMYCIN 600 MG in DEXTROSE 5% IN WATER 50 ML IVPB STA ×2 (03:01)
[2020-02-17 03:28] LABS: Basophils # (A) 0.1 k/uL (0-0.2); Basophils % (A) 1 %; Eosinophils # (A) 0.3 k/uL (0-0.7); Eosinophils % (A) 2 %; HCT 38.3 % (34.0-46.0); HGB 12.1 gm/dL (11.4-16.0); Lymphocytes # (A) 2.4 k/uL (1.0-4.8); Lymphocytes % (A) 16 %; MCH 29.5 pg (25.0-35.0); MCHC 31.7 g/dL (31.0-37.0); MCV 93.2 fL (80.0-100.0); Mean Platelet Volume 7.2; Monocytes # (A) 0.6 k/uL (0-1.0); Monocytes % (A) 4 %; Neutrophils # (A) 11.7 k/uL (1.3-7.7); Neutrophils % (A) 77 %; Platelet Count 325 k/uL (150-450); RBC 4.11 m/uL (3.80-5.40); RDW 12.1 % (11.5-15.5); WBC 15.3 k/uL (3.8-10.6)
[2020-02-17 03:38] LABS: ALT 17 U/L (4-34); AST 17 U/L (14-36); African American GFR (CKD) >90 (>60 ml/min/1.73 sqM); Albumin 4.3 g/dL (3.5-5.0); Alkaline Phosphatase 86 U/L (38-126); Anion Gap 9 mmol/L; Blood Urea Nitrogen 21 mg/dL (7-17); Calcium 9.4 mg/dL (8.4-10.2); Carbon Dioxide 26 mmol/L (22-30); Chloride 102 mmol/L (98-107); Creatine Kinase 65 U/L (30-135); Glucose 94 mg/dL (74-99); Non-African American GFR(CKD) >90 (>60 ml/min/1.73 sqM); Phosphorus 5.1 mg/dL (2.5-4.5); Potassium 4.1 mmol/L (3.5-5.1); Sodium 137 mmol/L (137-145); Total Bilirubin 0.4 mg/dL (0.2-1.3); Total Protein 7.2 g/dL (6.3-8.2)
[2020-02-17 03:40] LABS: INR 0.9 (<1.2); Partial Thromboplastin Time 24.6 sec (22.0-30.0); Prothrombin Time 9.3 sec (9.0-12.0)
[2020-02-17 04:15] LABS: Amphetamine Screen,Urine Detected (NotDetected); Barbiturate Screen,Urine Not Detected (NotDetected); Benzodiazepines Screen,Urine Detected (NotDetected); Cocaine Screen,Urine Not Detected (NotDetected); Methadone Screen, Urine Not Detected (NotDetected); Opiate Screen,Urine Not Detected (NotDetected); Oxycodone Screen, Urine Not Detected (NotDetected); Phencyclidine Screen,Urine Not Detected (NotDetected); Tricyclic Antidepressant,Urine Not Detected (NotDetected); Urn Cannabinoid Scrn Not Detected (NotDetected)
--- NOTE | 2020-02-17 04:27 | CT ---
EXAMINATION TYPE: CT pelvis w con DATE OF EXAM: 02/17/2020 COMPARISON: CT abdomen pelvis 08/14/2018 HISTORY: pain CT DLP: 1001.5 mGycm Automated exposure control for dose reduction was used. CONTRAST: Performed with IV Contrast, patient injected with 100 mL of Isovue 300. Bladder distends smoothly. Uterus is anteverted. There is no free fluid in the pelvis. There is no ev idence of a pelvic mass. There are small lower anterior abdominal wall midline ventral hernia that co ntains fat and measures 15 x 10 mm. The lower lumbar spine is intact. Bony pelvis is intact. There is some high attenuation in the pelvis that appears to be surrounding the cervix. This could be some he morrhage in the vaginal vault. There is increased subcutaneous density involving the right side labia and mons pubis. No discrete dr ainable fluid collection. There is no inguinal hernia. I see no inguinal adenopathy. There are a few inguinal lymph nodes that measure up to 1 cm. IMPRESSION: Inflammatory changes of the right side labia majora and mons pubis consistent with cellulitis which i s a change compared to old exam. No discrete abscess seen. There is clearing of the free fluid in the pelvis compared to old exam. There is small lower anterior abdominal wall ventral hernia that appears new compared to old exam. High attenuation around the cervix that could be menstruation fluid in the vaginal vault or thickened vaginal wall.
[2020-02-17] MEDS ORDERED: SODIUM CHLORIDE 0.9% 1,000 ML IV ONE (04:28)
[2020-02-17] MEDS ORDERED: FLUMAZENIL 0.1 MG/ML 5 ML VIAL IVP ONE (05:53)
[2020-02-17] MEDS ORDERED: NALOXONE 0.4 MG/ML 1 ML VIAL ONE (06:17)
[2020-02-17 06:26] LABS: Glucose,Whole Blood 91 mg/dL (75-99)
[2020-02-17 07:03] LABS: Amphetamine Screen,Urine Detected (NotDetected); Barbiturate Screen,Urine Not Detected (NotDetected); Benzodiazepines Screen,Urine Detected (NotDetected); Cocaine Screen,Urine Not Detected (NotDetected); Methadone Screen, Urine Not Detected (NotDetected); Opiate Screen,Urine Not Detected (NotDetected); Oxycodone Screen, Urine Not Detected (NotDetected); Phencyclidine Screen,Urine Not Detected (NotDetected); Tricyclic Antidepressant,Urine Not Detected (NotDetected); Urn Cannabinoid Scrn Not Detected (NotDetected)
[2020-02-17 08:11] VITALS: TEMP 97
[2020-02-17 08:32] LABS: Appearance,Urine Clear (Clear); Bilirubin,Urine Negative (Negative); Blood,Urine Negative (Negative); Color,Urine Yellow; Glucose,Urine (UA) Negative (Negative); Ketones,Urine Negative (Negative); Leukocyte Esterase,Urine Negative (Negative); Nitrite,Urine Negative (Negative); PH, Urine 6.5 (5.0-8.0); Protein,Urine Trace (Negative); Urobilinogen,Urine <2.0 mg/dL (<2.0)
[2020-02-17 09:03] LABS: Specific Gravity,Urine >1.050 (1.001-1.035)
--- NOTE | 2020-02-17 11:24 | CT ---
EXAMINATION TYPE: CT brain wo con DATE OF EXAM: 02/17/2020 COMPARISON: MRI brain 08/14/2010 INDICATION: Altered mental status DLP: 1054.4 mGycm, Automated exposure control for dose reduction was used. CONTRAST: None CT of the brain is performed utilizing 3 mm thick sections through the posterior fossa and 3 mm thick sections through the remaining calvarium. Study is performed within 24 hours of arrival to the hosp [facility]. No abnormal hyperdensity is present to suggest an acute intracranial hemorrhage. No mass lesion is evident. No acute infarcts are evident. Mild periventricular white matter hypodensity is present, likely on th e basis of chronic white matter ischemic change. Other etiologies are not excluded. Ventricles and sulci are appropriate for the patient age. Paranasal sinuses and mastoid air cells within the [id number] are clear. IMPRESSIONS: 1. No acute intracranial process. 2. Mild periventricular white matter changes which are nonspecific.
[2020-02-17] MEDS: AMPICILLIN-SULBACTAM 3 GM in SODIUM CHLORIDE 0.9% 100 ML IVPB SCH ×2 (12:12→16:38)
[2020-02-17] MEDS ORDERED: CLINDAMYCIN 600 MG in DEXTROSE 5% IN WATER 50 ML IVPB SCH ×2 (12:30)
[2020-02-17 12:56] VITALS: RESP 16
[2020-02-17] MEDS ORDERED: VANCOMYCIN IV PER PHARMACY 1 EACH MISC MISCELLANE PRN (13:47)
[2020-02-17] MEDS ORDERED: VANCOMYCIN 1,250 MG in SODIUM CHLORIDE 0.9% 250 ML IVPB SCH (14:00)
--- NOTE | 2020-02-17 14:54 | P.OBCN ---
History of Present Illness Consult date: 02/17/20 Requesting physician: Brian Humphrey Reason for consult: other (Possible vulvar abscess) Chief complaint: Dizziness History of present illness: This is a 39-year-old 3 para 1 woman who presented to the emergency room with dizziness. She reports a three-day history of a right labial and vulvar swelling. She was seen at [facility] yesterday and reports she had an incision and drainage of a right vulvar abscess. She reports that they did obtain some fluid back when it drained and she initially felt better however now she is feeling an increase in pain. She returns to our emergency room last night however with worsening dizziness. She reports that she got home from the other emergency room and began "falling and hitting her head.". She wanted to come to the emergency room because of that. Her past medical history is significant for multiple sclerosis, factor V Leiden mutation as well as MRSA. Review of Systems Constitutional: Denies chills, Denies fever Cardiovascular: Denies shortness of breath Respiratory: Denies cough Gastrointestinal: Denies abdominal pain, Denies BRBPR, Denies change in bowel habits, Denies constipation, Denies diarrhea, Denies nausea, Denies vomiting Genitourinary: Reports genital sores, Denies abnormal vaginal bleeding, Denies dysuria, Denies hematuria, Denies vaginal discharge Menstruation: Reports period normal Integumentary: Denies boils, Denies rash Neurological: Reports balance difficulties, Reports headaches, Reports syncope, Reports weakness Hematologic/Lymphatic: Reports thrombophilia Past Medical History Past Medical History: Blood Disorder (Factor V Leiden mutation), Eye Disorder, Rheumatoid Arthritis (RA) Additional Past Medical History / Comment(s): optic neuritis, multiple sclerosis,profiency s disorder, found in previous medical chart aortic calcification History of Any Multi-Drug Resistant Organisms: MRSA Year Discovered:: 06/21/19 [facility] MDRO Source:: Chin Past Surgical History: Appendectomy Additional Past Surgical History / Comment(s): ectopic (2) Past Anesthesia/Blood Transfusion Reactions: No Reported Reaction Past Psychological History: Anxiety Additional Psychological History / Comment(s): She is not . She lives with her mother and her children. Does not outside of the home. Tobacco use. Denies recreational drug use or alcohol use. No experience. No international travel Smoking Status: Current every day smoker Past Alcohol Use History: None Reported Past Drug Use History: None Reported - Past Family History Father Family Medical History: No Reported History Medications and Allergies Home Medications Medication Instructions Recorded Confirmed Type Ibuprofen [Motrin Ib] 10,000 mg PO BID PRN 06/23/19 02/17/20 History Acetaminophen Tab [Tylenol] 1,625 mg PO BID PRN 02/17/20 02/17/20 History Allergies Allergy/AdvReac Type Severity Reaction Status Date / Time vancomycin Allergy Severe Rash/Hives, Verified 02/17/20 08:16 itching, burning Exam Vital Signs Temp Pulse Pulse Resp BP BP Pulse Ox 02/17/20 12:55 95 16 106/65 98 02/17/20 08:06 97.0 F L 95 14 102/62 96 02/17/20 06:22 12 02/17/20 04:50 98 F 94 18 96/64 100 02/17/20 04:35 94 17 02/17/20 04:30 98.4 F 94 16 100 02/17/20 02:25 98.4 F 112 H 18 132/89 99 Intake and Output 02/16/20 02/17/20 02/17/20 22:59 06:59 14:59 Output Total 150 Balance -150 Output: Urine 150 Other: # Voids 0 Weight 68.946 kg This is a somewhat pale female in no obvious distress. She is somewhat difficult to understand verbally with some pressured speech. Targeted physical exam is performed: The abdomen is soft and nontender with no rebound no guarding and no flank pain. No evidence of cellulitis or erythema of the low abdomen. She has a healed Pfannenstiel incision noted. No flank pain. On pelvic examination she has erythema and swelling involving the right vulva and labia. This does not track into the perineal or perirectal area. Normal left vulva and labia. There is a 1 cm fresh stab incision on the right mid vulva consistent with recent I&D. The entire area feels woody, not fluctuant. There is no distinct abscess to drain at this time. There is no active drainage from the previous I&D site with attempt to express this area. No redness or swelling of lower extremities. Results Result Diagrams: 02/17/20 03:18 02/17/20 03:18 Abnormal Lab Results - Last 24 Hours (Table) 02/17/20 02/17/20 02/17/20 Range/Units 03:18 03:18 03:55 WBC 15.3 H (3.8-10.6) k/uL Neutrophils # 11.7 H (1.3-7.7) k/uL BUN 21 H (7-17) mg/dL Plasma Lactic Acid Erik (0.7-2.0) mmol/L Phosphorus 5.1 H (2.5-4.5) mg/dL Ur Specific [place] (1.001-1.035) Urine Protein (Negative) Ur Amphetamines Screen Detected H (NotDetected) U Benzodiazepines Scrn Detected H (NotDetected) 02/17/20 02/17/20 02/17/20 Range/Units 06:40 06:40 08:21 WBC (3.8-10.6) k/uL Neutrophils # (1.3-7.7) k/uL BUN (7-17) mg/dL Plasma Lactic Acid Erik <0.5 L (0.7-2.0) mmol/L Phosphorus (2.5-4.5) mg/dL Ur Specific [place] >1.050 H (1.001-1.035) Urine Protein Trace H (Negative) Ur Amphetamines Screen Detected H (NotDetected) U Benzodiazepines Scrn Detected H (NotDetected) CT Scan - head: report reviewed CT scan - pelvis: report reviewed (Right vulvar cellulitis, no discrete abscess or fluid pocket noted) Assessment and Plan (1) Dizziness Current Visit: Yes Status: Acute Code(s): R42 - DIZZINESS AND GIDDINESS SNOMED Code(s): 885672630 (2) Multiple sclerosis Narrative/Plan: History of multiple sclerosis. Patient was reports that she does not actively following with a neurologist at this time. Her symptoms are concerning and she presented to the hospital with dizziness and falls and headaches. Brain CT was grossly normal. Would recommend urology consult. She did have a drug screen positive for amphetamines and benzodiazepines Current Visit: Yes Status: Acute Code(s): G35 - MULTIPLE SCLEROSIS SNOMED Code(s): 33876246 (3) MRSA carrier Narrative/Plan: Currently on ampicillin/sulbactam and vancomycin. Of note, reviewing her previous admission in June 2019 she was diagnosed with a vancomycin ALLERGY. She was ultimately discharged home on daptomycin. Current Visit: Yes Status: Acute Code(s): Z22.322 - CARRIER OR SUSPECTED CARRIER OF METHICILLIN RESIS STAPH SNOMED Code(s): 378137854 (4) Vulvar cellulitis Narrative/Plan: Right vulvar cellulitis status post incision and drainage approximately 24 hours ago at [facility]. History of MRSA. There is no obvious abscess pocket to re-drained at this time either on physical exam or by computed tomography scan. I would recommend IV antibiotics. Wound cultures and or blood cultures on the should be followed up on if they were obtained at the previous facility. I will reexamine tomorrow. We will review her medications with care team as she has previously documented a vancomycin ALLERGY. Consideration for infectious disease consult if vulvar cellulitis does not improve. Current Visit: Yes Status: Acute Code(s): N76.2 - ACUTE VULVITIS SNOMED Code(s): 859359706 (5) Factor V Leiden mutation Narrative/Plan: Consider DVT prophylaxis Current Visit: Yes Status: Acute Code(s): D68.51 - ACTIVATED PROTEIN C RESISTANCE SNOMED Code(s): 225396340 Time with Patient: Greater than 30
--- NOTE | 2020-02-17 15:48 | P.CNNES ---
History of Present Illness Consult date: 02/17/20 Requesting physician: Brian Humphrey Reason for Consult: Altered mental status History of Present Illness: Patient is a 39-year-old female came to the hospital for evaluation of significant cellulitis and area of abscess. Patient has history of MRSA came to the ER for evaluation of groin abscess and folliculitis. Neurology was consulted for altered mental status. Patient was seen on the floor. Patient appears very restless, very inattentive, short attention span. Patient states she has been feeling dizzy for last 1 day. Feels like she is floating, almost like a drunk. When she is walking, she is wobbly. She denies any tinnitus or hearing loss. She states she has vertigo in the past as well. CT of the abdomen and pelvis revealed inflammatory changes of the right side labia majora and months pubis consistent with cellulitis which is a change compared to old exam. No discrete abscess seen. There is clearing of the free fluid in the pelvis compared to old exam. There is small lower anterior abdomi nal wall mental hernia that appears new compared to old exam. Hip continuation around the cervix that could be menstruation fluid in the vaginal vault are thickened vaginal wall. EKG shows normal sinus rhythm. Computed tomography scan of the head showed no acute intracranial process. Mild periventricular white matter changes which are nonspecific. Patient's urine drug screen positive for amphetamines and benzodiazepine. UA negative. Chem-20, CPK negative. PT/PTT normal. WBC mildly elevated 15.3 with left shift. Hemoglobin is normal toward 0.1. Patient's previous cardiolipin antibodies negative on 06/28/2019. Beta-2 glycoprotein negative. Patient had a 2-D echo on 06/24/2019, which revealed EF between 55-60%. Left ventricle size, wall thickness and systolic function are normal. Left atrial size is normal. Patient has history of multiple sclerosis, that was diagnosed in 2004. She at first placed on Avonex, but developed significant side effects. She was on Copaxone but she has not taken it for long time. She has not tried any disease modifying agents. Patient has previous history of optic neuritis involving bilateral eyes. She also has history of vertigo in the past. Patient does not follow up with a neurologist. Patient has smoked half pack per day since age 18. Still smokes. Denies alcohol or drug use. Denies blood pressure or diabetes. Patient also states that she has history of blood disorder and had clot in the lung 3 years ago. Review of Systems Complains of groin pain from recent surgery. Denies double vision. She does have some visual disturbance related to her previous optic neuritis. Complains of balance issues. Denies chest pain abdominal pain nausea vomiting diarrhea. Denies double vision. All other review systems unremarkable. Past Medical History Past Medical History: Blood Disorder, Eye Disorder, Rheumatoid Arthritis (RA) Additional Past Medical History / Comment(s): optic neuritis, multiple sclerosis,profiency s disorder, found in previous medical chart aortic calcification History of Any Multi-Drug Resistant Organisms: MRSA Date of last positivie culture/infection: 06/21/19 [facility] MDRO Source:: [place] Past Surgical History: Appendectomy Additional Past Surgical History / Comment(s): ectopic (2) Past Anesthesia/Blood Transfusion Reactions: No Reported Reaction Past Psychological History: Anxiety Additional Psychological History / Comment(s): She is not . She lives with her mother and her children. Does not outside of the home. Tobacco use. Denies recreational drug use or alcohol use. No experience. No international travel Smoking Status: Current every day smoker Past Alcohol Use History: None Reported Past Drug Use History: None Reported - Past Family History Father Family Medical History: No Reported History Medications and Allergies Home Medications Medication Instructions Recorded Confirmed Type Ibuprofen [Motrin Ib] 10,000 mg PO BID PRN 06/23/19 02/17/20 History Acetaminophen Tab [Tylenol] 1,625 mg PO BID PRN 02/17/20 02/17/20 History Allergies Allergy/AdvReac Type Severity Reaction Status Date / Time vancomycin Allergy Severe Rash/Hives, Verified 02/17/20 08:16 itching, burning Physical Examination - Vital Signs Vital Signs: Vital Signs Temp Pulse Pulse Resp BP BP Pulse Ox 02/17/20 08:06 97.0 F L 95 14 102/62 96 02/17/20 06:22 12 02/17/20 04:50 98 F 94 18 96/64 100 02/17/20 04:35 94 17 02/17/20 04:30 98.4 F 94 16 100 02/17/20 02:25 98.4 F 112 H 18 132/89 99 Intake and Output 02/16/20 02/17/2002/16/20 22:59 06:59 14:59 Output Total 150 Balance -150 Output: Urine 150 Other: # Voids 0 Weight 68.946 kg On examination patient is a young female, who appears very inattentive, short attention span, easily distractible, almost appears delirious. No obvious hallucinations. Speech and language functions appears intact. On cranial nerve examination pupils are round and reactive to light. Visual verduzco reveal some restricted visual field laterally only of the left eye. Extraocular muscles are intact. Face is symmetric and tongue protrudes the midline. Palatal elevation and sensation normal hearing and shoulder shrug normal on muscle strength testing there is no pronator drift and the strength is normal in arms and legs distally and proximally. Patient appears very unsteady with truncal ataxia. No obvious ataxia for [id number] testing. Reflexes are 1+ and plantars are downgoing. Sensory touch is equal. Tone and bulk of muscles normal. No obvious bruit, S1 and S2 audible. Peripheral pulses present. Abdomen soft nontender. Chest is clear. Results - Laboratory Findings CBC and BMP: 02/17/20 03:18 02/17/20 03:18 Abnormal Lab Findings: Abnormal Labs 02/17/20 02/17/20 02/17/20 03:18 03:18 03:55 WBC 15.3 H Neutrophils # 11.7 H BUN 21 H Plasma Lactic Acid Erik Phosphorus 5.1 H Ur Specific [place] Urine Protein Ur Amphetamines Screen Detected H U Benzodiazepines Scrn Detected H 02/17/20 02/17/20 02/17/20 06:40 06:40 08:21 WBC Neutrophils # BUN Plasma Lactic Acid Erik <0.5 L Phosphorus Ur Specific [place] >1.050 H Urine Protein Trace H Ur Amphetamines Screen Detected H U Benzodiazepines Scrn Detected H Assessment and Plan Assessment: * Altered mental status, likely related to metabolic encephalopathy. Patient appears delirious at this time. Possible from substance abuse. * History of relapsing remitting MS. Patient noncompliant, does not follow up with a neurologist. * Dizziness, gait imbalance. Cannot rule out MS exacerbation. Rule out B12 deficiency. * MRSA cellulitis with right vulvar abscess, status post incision and drainage. * History of hypercoagulable state. Previous testing reveals presence of lupus anticoagulants. Plan: * Patient appears significantly dizzy, imbalance. * We will check an MRI of the brain with and without contrast. If any evidence of MS exacerbation, would suggest treatment with Solu-Medrol 1 g IVPB daily for 5 days (if no medical/surgical contraindications). * We will check B12, folate, RPR. * Neurology coverage not available over the weekend. Dr. Velásquez will continue neurology service from Thursday.
[2020-02-17 17:45] VITALS: BP 115/64; PULSE 120
[2020-02-17] MEDS ORDERED: MECLIZINE 12.5 MG TAB PO SCH (18:00)
--- NOTE | 2020-02-17 21:54 | P.HPIM ---
History of Present Illness H&P Date: 02/17/20 Chief Complaint: Dizziness History of presenting complaint: This is a 39-year-old patient who follows with Dr. Mary Bowles/ Damon KELLOGG. Patient was just recently admitted at [facility] under Dr. Renetta Qureshi, where she presented with the pimples that progressed to become abscess on the chin extending to the face. It was drained and blood cultures were posi tive for MRSA. Patient was discharged on June 21 with IV vancomycin. Patient does not follow with a neurologist for her MS as it feels it does not help her. Patient also takes Adderall for ADHD. Patient and her boyfriend are trying to move to a new place. She notices that she was dizzy with movement. Not otherwise. Denied any fever and chills. She also had an abscess in the pubic area when she does use an electric razor to shave. I&D was carried out at [facility] yesterday. No obvious pus was updated as per the patient. Denies any fever and chills. Patient is a smoker. Earlier today the episode of decreased responsiveness when patient was in observation unit." Stroke was called. Computed tomography scan of the brain was negative. Patient turnaround completely. I done and patient's boyfriend in the observation unit while she was off the floor and she felt that patient probably had been giving some medication by her friend. On the day questioning patient did say that the friend had given Neurontin last night. Not sure of the strength. During my due to patient's other fidgety and very anxious. Denies any ear symptoms. Review of systems: GEN.: Tired EYES: None HEENT: None] NECK: None RESPIRATORY: Occasional cough CARDIOVASCULAR: None GASTROINTESTINAL: None GENITOURINARY: As above MUSCULOSKELETAL: None LYMPHATICS: None HEMATOLOGICAL: None PSYCHIATRY: Very anxious, often times feels like a sleepy at a baseline NEUROLOGICAL: None Past medical history to include: Factor V Leyden mutation, pulmonary embolism, questionable rheumatoid arthritis, multiple sclerosis, optic neuritis, anxiety, MRSA infection Social history: Smokes one half a pack a day. Denies use of recreational drugs. Not employed. Lives with her boyfriend Family history: Reviewed, noncontributory to presentation Physical examination: VITAL SIGNS: 97, 95, 14, 102/62, 96% room air GENERAL: Sitting up in the bed slightly anxious awake. EYES: Pupils equal. Conjunctiva normal. HEENT: External appearance of nose and ears normal, oral cavity grossly normal. NECK: JVD not raised; masses not palpable. HEART: First and second heart sounds are normal; no edema. LUNGS: Respiratory rate normal; decreased breath sounds ABDOMEN: Soft, nontender, liver spleen not palpable, no masses palpable. 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 NEUROLOGICAL: Cranial nerves grossly intact; no facial asymmetry, power and sensation grossly intact. LYMPHATICS: No lymph nodes palpable in the axilla and neck INVESTIGATIONS, reviewed in the clinical context: White count 15.3 hemoglobin 12.1 platelets 325 increased neutrophils potassium 4.1 creatinine 0.76 UA negative Urine drug screen positive for amphetamines and benzodiazepines Assessment: -Right labia majora possible abscess with surrounding cellulitis. He had IND carried out at [facility]. -Chronic multiple sclerosis with optic neuritis not being followed by neurologist -Factor V Leyden mutation with history of pulmonary embolism -Chronic nicotine dependence patient cigarette smoker -Anxiety disorder not otherwise specified -Episode earlier today of decreased responsiveness/metabolic encephalopathy, delirium likely drug-induced. Patient was given what she states Neurontin by a friend is unclear if other medication involved. Patient is fully recovered from the same. No focal weakness. Patient computed tomography scan of the brain was negative. Plan: Patient has received vancomycin before. She has some side effects. Although the same. Discussed with the pharmacy. She'll be monitored. OBJ and has been consulted. Neurology was consulted. Nicotine patch. Care was discussed at length with the patient. Past Medical History Past Medical History: Blood Disorder, Eye Disorder, Rheumatoid Arthritis (RA) Additional Past Medical History / Comment(s): optic neuritis, multiple sclerosis,profiency s disorder, found in previous medical chart aortic calcification History of Any Multi-Drug Resistant Organisms: MRSA Date of last positivie culture/infection: 06/21/19 [facility] MDRO Source:: Chin Past Surgical History: Appendectomy Additional Past Surgical History / Comment(s): ectopic (2) Past Anesthesia/Blood Transfusion Reactions: No Reported Reaction Past Psychological History: Anxiety Additional Psychological History / Comment(s): She is not . She lives with her mother and her children. Does not outside of the home. Tobacco use. Denies recreational drug use or alcohol use. No experience. No international travel Smoking Status: Current every day smoker Past Alcohol Use History: None Reported Past Drug Use History: None Reported - Past Family History Father Family Medical History: No Reported History Medications and Allergies Home Medications Medication Instructions Recorded Confirmed Type Ibuprofen [Motrin Ib] 10,000 mg PO BID PRN 06/23/19 02/17/20 History Acetaminophen Tab [Tylenol] 1,625 mg PO BID PRN 02/17/20 02/17/20 History Allergies Allergy/AdvReac Type Severity Reaction Status Date / Time vancomycin Allergy Severe Rash/Hives, Verified 02/17/20 08:16 itching, burning Physical Exam Vitals: Vital Signs Temp Pulse Pulse Resp BP BP Pulse Ox 02/17/20 08:06 97.0 F L 95 14 102/62 96 02/17/20 06:22 12 02/17/20 04:50 98 F 94 18 96/64 100 02/17/20 04:35 94 17 02/17/20 04:30 98.4 F 94 16 100 02/17/20 02:25 98.4 F 112 H 18 132/89 99 Intake and Output 02/16/20 02/17/20 02/17/20 22:59 06:59 14:59 Output Total 150 Balance -150 Output: Urine 150 Other: # Voids 0 Weight 68.946 kg Results CBC & Chem 7: 02/17/20 03:18 02/17/20 03:18 Labs: Abnormal Lab Results - Last 24 Hours (Table) 02/17/20 02/17/20 02/17/20 Range/Units 03:18 03:18 03:55 WBC 15.3 H (3.8-10.6) k/uL Neutrophils # 11.7 H (1.3-7.7) k/uL BUN 21 H (7-17) mg/dL Plasma Lactic Acid Erik (0.7-2.0) mmol/L Phosphorus 5.1 H (2.5-4.5) mg/dL Ur Specific [place] (1.001-1.035) Urine Protein (Negative) Ur Amphetamines Screen Detected H (NotDetected) U Benzodiazepines Scrn Detected H (NotDetected) 02/17/20 02/17/20 02/17/20 Range/Units 06:40 06:40 08:21 WBC (3.8-10.6) k/uL Neutrophils # (1.3-7.7) k/uL BUN (7-17) mg/dL Plasma Lactic Acid Erik <0.5 L (0.7-2.0) mmol/L Phosphorus (2.5-4.5) mg/dL Ur Specific [place] >1.050 H (1.001-1.035) Urine Protein Trace H (Negative) Ur Amphetamines Screen Detected H (NotDetected) U Benzodiazepines Scrn Detected H (NotDetected) Thrombosis Risk Factor Assmnt - Choose All That Apply Any of the Below Risk Factors Present?: Yes Each Factor Represents 1 point: Obesity (BMI >25) Other Risk Factors: No Other congenital or acquired thrombophilia - If yes, enter type in comment: No Thrombosis Risk Factor Assessment Total Risk Factor Score: 1 Thrombosis Risk Factor Assessment Level: Low Risk
--- NOTE | 2020-02-17 22:00 | P.DS ---
Providers Date of admission: 02/17/20 04:29 Expected date of discharge: 02/17/20 Attending physician: Brian Humphrey Consults: 02/17/20 10:52 Consult Physician Stat Consulting Provider: Babak Mari Consult Reason/Comments: Altered Mental Status Do you want consulting provider notified?: Yes 02/17/20 13:50 Consult Physician Routine Consulting Provider: Letitia Carr Consult Reason/Comments: pubic abscess Do you want consulting provider notified?: Yes Primary care physician: Davion Bowles [facility] Course: Chief Complaint: Dizziness History of presenting complaint: This is a 39-year-old patient who follows with Dr. Mary Bowles/ Damon KELLOGG. Patient was just recently admitted at [facility] where she presented with the pimples that progressed to become abscess on the chin extending to the face. It was drained and blood cultures were positive for MRSA. Patient was discharged on June 21 with IV vancomycin. Patient does not follow with a neurologist for her MS as it feels it does not help her. Patient also takes Adderall for ADHD. Patient and her boyfriend are trying to move to a new place. She notices that she was dizzy with movement. Not otherwise. Denied any fever and chills. She also had an abscess in the pubic area when she does use an electric razor to shave. I&D was carried out at [facility] yesterday. No obvious pus was updated as per the patient. Denies any fever and chills. Patient is a smoker. Earlier today the episode of decreased responsiveness when patient was in observation unit." Stroke was called. Computed tomography scan of the brain was negative. Patient turnaround completely. I done and patient's boyfriend in the observation unit while she was off the floor and she felt that patient probably had been giving some medication by her friend. On the day questioning patient did say that the friend had given Neurontin last night. Not sure of the strength. During my due to patient's other fidgety and very anxious. Denies any ear symptoms. Patient is felt to be have metabolic encephalopathy and delirium. Completely recovered. Computed tomography scan of the brain unremarkable. Seen by neurology. Also seen by Dr. Carr ffom CRISIS THERAPIST. Patient to continue with antibiotics. Not felt to be an abscess. Nurse called me late in the evening the patient decided to leave [place]. Consultation: Dr. Marcelo from neurology dr madeleine Carr from obstetrics Physical examination: VITAL SIGNS: 97, 95, 16, 106/65, 98% room air GENERAL: Sitting up in the bed slightly anxious awake. EYES: Pupils equal. Conjunctiva normal. HEENT: External appearance of nose and ears normal, oral cavity grossly normal. NECK: JVD not raised; masses not palpable. HEART: First and second heart sounds are normal; no edema. LUNGS: Respiratory rate normal; decreased breath sounds ABDOMEN: Soft, nontender, liver spleen not palpable, no masses palpable. GENITOURINARY-patient examined extraction in the present of nurse entry analyst Pretty-is a bump on the right labia majora abutting on the mons pubis, tenderness PSYCH: [Alert and oriented x3; mood and affect anxious, restless. INVESTIGATIONS, reviewed in the clinical context: White count 15.3 hemoglobin 12.1 platelets 325 increased neutrophils potassium 4.1 creatinine 0.76 UA negative Urine drug screen positive for amphetamines and benzodiazepines Assessment: -Right labia majora possible abscess with surrounding cellulitis. had I&D carried out at [facility]. 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 Patient was given what she states Neurontin by a friend is unclear if other medication involved. Patient is fully recovered from the same. No focal weakness. Patient computed tomography scan of the brain was negative. Disposition: AMA Patient Condition at Discharge: Undetermined Plan - Discharge Summary Discharge Rx Participant: No New Discharge Prescriptions: No Action Ibuprofen [Motrin Ib] 10,000 mg PO BID PRN PRN Reason: Pain Acetaminophen Tab [Tylenol] 1,625 mg PO BID PRN PRN Reason: Pain Discharge Medication List Ibuprofen [Motrin Ib] 10,000 mg PO BID PRN 06/23/19 [History] Acetaminophen Tab [Tylenol] 1,625 mg PO BID PRN 02/17/20 [History] Follow up Appointment(s)/Referral(s): Nonstaff,Physician [REFERRING] - 1-2 days
[2020-02-18 00:50] LABS: Folate, Serum 14.5 ng/mL
[2020-02-18] MEDS ORDERED: VANCOMYCIN TROUGH DUE 1 EACH MISC MISCELLANE ONE (13:00)
== END 2020-02-17 20:20 | disposition left against medical advice (07) ==
LOC: EC 02:20 → 1SOBS 04:29 → 3SCARD 11:53
PROVIDERS: ADMIT Hospitalist; ATTEND Hospitalist
DX: G93.41 Metabolic encephalopathy (principal); R41.0 Disorientation, unspecified; I63.9 Cerebral infarction, unspecified; N76.2 Acute vulvitis; Z22.322 Carrier or suspected carrier of Methicillin resistant Staphylococcus aureus; Z86.14 Personal history of Methicillin resistant Staphylococcus aureus infection; D68.51 Activated protein C resistance; G35 Multiple sclerosis; Z91.81 History of falling; R42 Dizziness and giddiness; H46.9 Unspecified optic neuritis; E66.9 Obesity, unspecified; Z68.26 Body mass index [BMI] 26.0-26.9, adult; Z91.19 Patient's noncompliance with other medical treatment and regimen; R26.81 Unsteadiness on feet; M32.9 Systemic lupus erythematosus, unspecified; F90.9 Attention-deficit hyperactivity disorder, unspecified type; L73.8 Other specified follicular disorders; M06.9 Rheumatoid arthritis, unspecified; I70.0 Atherosclerosis of aorta; F41.9 Anxiety disorder, unspecified; F17.210 Nicotine dependence, cigarettes, uncomplicated; Z03.818 Encounter for observation for suspected exposure to other biological agents ruled out; Z86.711 Personal history of pulmonary embolism; Z79.1 Long term (current) use of non-steroidal anti-inflammatories (NSAID); Z79.891 Long term (current) use of opiate analgesic; Z79.899 Other long term (current) drug therapy; Z88.1 Allergy status to other antibiotic agents; D68.59 Other primary thrombophilia
CPT/HCPCS: 96366; 96367 ×2; 96375; 96368; 96365; 99285; 36415; 83880; 80053; 82607; 82550; 82746; 83605; 83735; 84100; 84484; 85025; 85610; 85730; 81003; 87040; 86780; 80306; 72193; 70450; G0378 ×2; U0003; J3370; J2310; J0295; Q9967

== ENCOUNTER 2020-04-16 14:55 | Emergency (ER) | payer OTHER ==
[2020-04-16 15:08] VITALS: RESP 18; TEMP 97.8
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
[2020-04-16 16:59] VITALS: BP 126/89; PULSE 97
== END 2020-04-16 16:58 | disposition home or self-care (01) ==
LOC: EC 14:55
DX: S02.2XXA Fracture of nasal bones, initial encounter for closed fracture (principal); J34.2 Deviated nasal septum; F17.200 Nicotine dependence, unspecified, uncomplicated; M06.9 Rheumatoid arthritis, unspecified; H46.9 Unspecified optic neuritis; G35 Multiple sclerosis; Z86.14 Personal history of Methicillin resistant Staphylococcus aureus infection; Z88.1 Allergy status to other antibiotic agents; T74.11XA Adult physical abuse, confirmed, initial encounter; Y07.9 Unspecified perpetrator of maltreatment and neglect
CPT/HCPCS: 70450; 70486; 72125; 99284

== ENCOUNTER 2021-09-06 10:36 | Inpatient (IN) | payer OTHER ==
[2021-09-06] MEDS ORDERED: METOCLOPRAMIDE 5 MG/ML 2 ML VIAL IVP STA (11:04)
[2021-09-06] MEDS ORDERED: diphenhydrAMINE 50 MG/ML 1 ML VIAL IVP STA (11:04)
[2021-09-06] MEDS ORDERED: SODIUM CHLORIDE 0.9% 1,000 ML IV STA (11:04)
--- NOTE | 2021-09-06 11:20 | ED ---
General Adult HPI - General Chief complaint: Recheck/Abnormal Lab/Rx Stated complaint: MS flare Time Seen by Provider: 09/06/21 11:10 Source: patient, RN notes reviewed, old records reviewed Mode of arrival: ambulatory Limitations: no limitations - History of Present Illness Initial comments: 40-year-old female, alert and oriented 4, presents to emergency room with left leg weakness, confusion and headache for the past week. She states that she noticed that her left leg has been heavier. Patient states that this feels like her normal MS flare. She was last hospitalized in 2013 for 3 days for high-dose steroid treatment. She sees Dr. Jalloh and is moving to a neurologist in [place]. Patient denies any fevers, no nausea vomiting or diarrhea. -: week(s) (1) Location: left, lower extremity Severity scale (1-10): 4 Consistency: constant Associated Symptoms: confusion, nausea/vomiting (no vomiting), weakness (left leg) Treatments Prior to Arrival: none - Related Data Home Medications Medication Instructions Recorded Confirmed Ibuprofen [Motrin Ib] 800 mg PO Q8H PRN 06/23/19 09/06/21 Acetaminophen Tab [Tylenol] 650 mg PO Q4-6H PRN 02/17/20 09/06/21 Citalopram Hydrobromide [CeleXA] 20 mg PO DAILY 09/06/21 09/06/21 traZODone HCL [Desyrel] 100 mg PO HS 09/06/21 09/06/21 Allergies Allergy/AdvReac Type Severity Reaction Status Date / Time vancomycin Allergy Severe Rash/Hives, Verified 09/06/21 12:49 itching, burning Review of Systems ROS Statement: Those systems with pertinent positive or pertinent negative responses have been documented in the HPI. ROS Other: All systems not noted in ROS Statement are negative. Past Medical History Past Medical History: Blood Disorder, Eye Disorder, Rheumatoid Arthritis (RA) Additional Past Medical History / Comment(s): optic neuritis, multiple sclerosis,profiency s disorder, found in previous medical chart aortic calcification History of Any Multi-Drug Resistant Organisms: MRSA Date of last positivie culture/infection: 06/21/19 [facility] MDRO Source:: [place] Past Surgical History: Appendectomy Additional Past Surgical History / Comment(s): ectopic (2) Past Anesthesia/Blood Transfusion Reactions: No Reported Reaction Past Psychological History: Anxiety Smoking Status: Current every day smoker Past Alcohol Use History: None Reported Past Drug Use History: None Reported - Past Family History Father Family Medical History: No Reported History Mother History Unknown: Yes General Exam Limitations: no limitations General appearance: alert, in no apparent distress Head exam: Present: atraumatic, normocephalic, normal inspection Eye exam: Present: normal appearance, PERRL, EOMI. Absent: scleral icterus, conjunctival injection, periorbital swelling, periorbital tenderness ENT exam: Present: normal exam, normal oropharynx, mucous membranes moist Neck exam: Present: normal inspection, full ROM. Absent: tenderness, meningismus, lymphadenopathy, thyromegaly Respiratory exam: Present: normal lung sounds bilaterally. Absent: respiratory distress, wheezes, rales, rhonchi, stridor, chest wall tenderness, accessory muscle use, decreased breath sounds Cardiovascular Exam: Present: tachycardia, normal heart sounds. Absent: JVD GI/Abdominal exam: Present: soft. Absent: distended, tenderness, guarding, manuel ound, rigid Extremities exam: Present: normal inspection, full ROM, normal capillary refill. Absent: tenderness, pedal edema, joint swelling, calf tenderness Neurological exam: Present: alert, oriented X3 Psychiatric exam: Present: normal affect, normal mood Skin exam: Present: warm, dry, intact, normal color. Absent: rash, cyanosis, diaphoretic, petechiae, pallor Course Vital Signs 09/06/21 09/06/21 09/06/21 10:37 11:52 12:46 Temperature 96.8 F L 97.7 F Pulse Rate 101 H 73 79 Respiratory 20 18 18 Rate Blood Pressure 134/87 118/75 116/82 O2 Sat by Pulse 96 98 98 Oximetry Medical Decision Making - Medical Decision Making 40-year-old female presents with left leg heaviness, confusion and headache for the past week. Patient states that this feels like her normal MS flare. Patient has minimal left lower leg weakness. She denies any visual changes. Denies any fevers. CBC electrolytes urinalysis are all within normal limits. Coronavirus testing is negative. Case discussed with Dr. Nelson and patient was started on Solu-Medrol 1 g for MS exacerbation and admitted to the hospital. - Lab Data Result diagrams: 09/06/21 11:24 09/06/21 11:24 Lab Results 09/06/21 09/06/21 09/06/21 Range/Units 11:24 11:24 11:24 WBC 6.2 (3.8-10.6) k/uL RBC 4.24 (3.80-5.40) m/uL Hgb 13.2 (11.4-16.0) gm/dL Hct 39.5 (34.0-46.0) % MCV 93.0 (80.0-100.0) fL MCH 31.0 (25.0-35.0) pg MCHC 33.3 (31.0-37.0) g/dL RDW 12.2 (11.5-15.5) % Plt Count 273 (150-450) k/uL MPV 7.4 Neutrophils % 59 % Lymphocytes % 28 % Monocytes % 6 % Eosinophils % 3 % Basophils % 2 % Neutrophils # 3.7 (1.3-7.7) k/uL Lymphocytes # 1.8 (1.0-4.8) k/uL Monocytes # 0.4 (0-1.0) k/uL Eosinophils # 0.2 (0-0.7) k/uL Basophils # 0.1 (0-0.2) k/uL PT 9.8 (9.0-12.0) sec INR 0.9 (<1.2) APTT 23.6 (22.0-30.0) sec Sodium 137 (137-145) mmol/L Potassium 4.6 (3.5-5.1) mmol/L Chloride 107 (98-107) mmol/L Carbon Dioxide 24 (22-30) mmol/L Anion Gap 6 mmol/L BUN 15 (7-17) mg/dL Creatinine 0.67 (0.52-1.04) mg/dL Est GFR (CKD-EPI)AfAm >90 (>60 ml/min/1.73 sqM) Est GFR (CKD-EPI)NonAf >90 (>60 ml/min/1.73 sqM) Glucose 96 (74-99) mg/dL Plasma Lactic Acid Erik (0.7-2.0) mmol/L Calcium 9.4 (8.4-10.2) mg/dL Magnesium 2.0 (1.6-2.3) mg/dL Total Bilirubin 0.5 (0.2-1.3) mg/dL AST 20 (14-36) U/L ALT 19 (4-34) U/L Alkaline Phosphatase 55 (38-126) U/L Total Protein 7.7 (6.3-8.2) g/dL Albumin 4.2 (3.5-5.0) g/dL Lipase 56 (23-300) U/L HCG, Qual Urine Color Urine Appearance (Clear) Urine pH (5.0-8.0) Ur Specific Myrtle (1.001-1.035) Urine Protein (Negative) Urine Glucose (UA) (Negative) Urine Ketones (Negative) Urine Blood (Negative) Urine Nitrite (Negative) Urine Bilirubin (Negative) Urine Urobilinogen (<2.0) mg/dL Ur Leukocyte Esterase (Negative) 09/06/21 09/06/21 09/06/21 Range/Units 11:24 11:24 12:15 WBC (3.8-10.6) k/uL RBC (3.80-5.40) m/uL Hgb (11.4-16.0) gm/dL Hct (34.0-46.0) % MCV (80.0-100.0) fL MCH (25.0-35.0) pg MCHC (31.0-37.0) g/dL RDW (11.5-15.5) % Plt Count (150-450) k/uL MPV Neutrophils % % Lymphocytes % % Monocytes % % Eosinophils % % Basophils % % Neutrophils # (1.3-7.7) k/uL Lymphocytes # (1.0-4.8) k/uL Monocytes # (0-1.0) k/uL Eosinophils # (0-0.7) k/uL Basophils # (0-0.2) k/uL PT (9.0-12.0) sec INR (<1.2) APTT (22.0-30.0) sec Sodium (137-145) mmol/L Potassium (3.5-5.1) mmol/L Chloride (98-107) mmol/L Carbon Dioxide (22-30) mmol/L Anion Gap mmol/L BUN (7-17) mg/dL Creatinine (0.52-1.04) mg/dL Est GFR (CKD-EPI)AfAm (>60 ml/min/1.73 sqM) Est GFR (CKD-EPI)NonAf (>60 ml/min/1.73 sqM) Glucose (74-99) mg/dL Plasma Lactic Acid Erik 1.7 (0.7-2.0) mmol/L Calcium (8.4-10.2) mg/dL Magnesium (1.6-2.3) mg/dL Total Bilirubin (0.2-1.3) mg/dL AST (14-36) U/L ALT (4-34) U/L Alkaline Phosphatase (38-126) U/L Total Protein (6.3-8.2) g/dL Albumin (3.5-5.0) g/dL Lipase (23-300) U/L HCG, Qual Not Detected Urine Color Yellow Urine Appearance Clear (Clear) Urine pH 7.5 (5.0-8.0) Ur Specific Myrtle 1.022 (1.001-1.035) Urine Protein Negative (Negative) Urine Glucose (UA) Negative (Negative) Urine Ketones Negative (Negative) Urine Blood Negative (Negative) Urine Nitrite Negative (Negative) Urine Bilirubin Negative (Negative) Urine Urobilinogen <2.0 (<2.0) mg/dL Ur Leukocyte Esterase Negative (Negative) Disposition Clinical Impression: Exacerbation of multiple sclerosis Disposition: ADMITTED IP TO THIS [facility] Condition: Good Decision Date: 09/06/21 Decision Time: 12:36
[2021-09-06] MEDS ORDERED: ACETAMINOPHEN TAB 325 MG TAB PO STA (11:28)
[2021-09-06] MEDS ORDERED: methylPREDNISolone SOD SUCCIN 1,000 MG in SODIUM CHLORIDE 0.9% 250 ML IVPB STA (11:29)
[2021-09-06 11:31] LABS: Basophils # (A) 0.1 k/uL (0-0.2); Basophils % (A) 2 %; Eosinophils # (A) 0.2 k/uL (0-0.7); Eosinophils % (A) 3 %; HCT 39.5 % (34.0-46.0); HGB 13.2 gm/dL (11.4-16.0); Lymphocytes # (A) 1.8 k/uL (1.0-4.8); Lymphocytes % (A) 28 %; MCHC 33.3 g/dL (31.0-37.0); Mean Platelet Volume 7.4; Monocytes # (A) 0.4 k/uL (0-1.0); Monocytes % (A) 6 %; Neutrophils # (A) 3.7 k/uL (1.3-7.7); Neutrophils % (A) 59 %; Platelet Count 273 k/uL (150-450); RBC 4.24 m/uL (3.80-5.40); RDW 12.2 % (11.5-15.5); WBC 6.2 k/uL (3.8-10.6)
[2021-09-06 11:41] LABS: INR 0.9 (<1.2); Partial Thromboplastin Time 23.6 sec (22.0-30.0); Prothrombin Time 9.8 sec (9.0-12.0)
[2021-09-06 11:46] LABS: Potassium 4.6 mmol/L (3.5-5.1)
[2021-09-06 11:47] LABS: ALT 19 U/L (4-34); AST 20 U/L (14-36); African American GFR (CKD) >90 (>60 ml/min/1.73 sqM); Albumin 4.2 g/dL (3.5-5.0); Alkaline Phosphatase 55 U/L (38-126); Anion Gap 6 mmol/L; Blood Urea Nitrogen 15 mg/dL (7-17); Calcium 9.4 mg/dL (8.4-10.2); Carbon Dioxide 24 mmol/L (22-30); Chloride 107 mmol/L (98-107); Glucose 96 mg/dL (74-99); Lipase 56 U/L (23-300); Non-African American GFR(CKD) >90 (>60 ml/min/1.73 sqM); Sodium 137 mmol/L (137-145); Total Bilirubin 0.5 mg/dL (0.2-1.3); Total Protein 7.7 g/dL (6.3-8.2)
[2021-09-06] MEDS ORDERED: NALOXONE 0.4 MG/ML 1 ML VIAL IV PRN (12:36)
[2021-09-06] MEDS ORDERED: ONDANSETRON 4 MG/2 ML VIAL IVP PRN (12:36)
[2021-09-06 12:45] LABS: Appearance,Urine Clear (Clear); Bilirubin,Urine Negative (Negative); Blood,Urine Negative (Negative); Color,Urine Yellow; Glucose,Urine (UA) Negative (Negative); Ketones,Urine Negative (Negative); Leukocyte Esterase,Urine Negative (Negative); Nitrite,Urine Negative (Negative); PH, Urine 7.5 (5.0-8.0); Protein,Urine Negative (Negative); Specific Gravity,Urine 1.022 (1.001-1.035); Urobilinogen,Urine <2.0 mg/dL (<2.0)
--- NOTE | 2021-09-06 13:14 | P.HPIM ---
History of Present Illness This is a pleasant 40 years old female with past medical history of multiple sclerosis, rheumatoid arthritis, optic neuritis, trauma and anxiety. Presents because of left sided weakness both leg and arm for about a week similar to her previous attacks of MS, multiple sclerosis. Today also she developed some blurriness in her left eye but no painful eye movement, no headache but she thinks she is a bit confused although she is oriented to time, place and person and she has insight into her illness she denies any chest pain, dyspnea, no change in urine or bowel habits. No fever. She denies alcohol or illicit drugs. Labs including CBC, BMP, INR and liver enzymes are unremarkable. Urine analysis is no suspicious of infection. Old CT on 03/[address] of the head and neck: No acute intracranial process, no acute cervical spine fracture. She has acute comminuted minimally displaced nasal bridge fracture extending into the anterior septum with perhaps slightly more prominent right nasal septal deviation. : Patient was started on steroids Review of Systems CONSTITUTIONAL: No fever, no malaise, no fatigue. HEENT: No recent visual problems or hearing problems. Denied any sore throat. CARDIOVASCULAR: No orthopnea, PND, no palpitations, no syncope. PULMONARY: No shortness of breath, no cough, no hemoptysis. GASTROINTESTINAL: No diarrhea, no nausea, no vomiting, no abdominal pain. Normoactive bowel sounds. NEUROLOGICAL: No headaches,no numbness. HEMATOLOGICAL: Denies any bleeding or petechiae. GENITOURINARY: Denies any burning micturition, frequency, or urgency. MUSCULOSKELETAL/RHEUMATOLOGICAL: Denies any joint pain, swelling, or any muscle pain. ENDOCRINE: Denies any polyuria or polydipsia. Past Medical History Past Medical History: Blood Disorder, Eye Disorder, Rheumatoid Arthritis (RA) Additional Past Medical History / Comment(s): optic neuritis, multiple sclerosis,profiency s disorder, found in previous medical chart aortic calcification History of Any Multi-Drug Resistant Organisms: MRSA Date of last positivie culture/infection: 06/21/19 [facility] MDRO Source:: Chin Past Surgical History: Appendectomy Additional Past Surgical History / Comment(s): ectopic (2) Past Anesthesia/Blood Transfusion Reactions: No Reported Reaction Past Psychological History: Anxiety Smoking Status: Current every day smoker Past Alcohol Use History: None Reported Past Drug Use History: None Reported - Past Family History Father Family Medical History: No Reported History Medications and Allergies Home Medications Medication Instructions Recorded Confirmed Type Ibuprofen [Motrin Ib] 800 mg PO Q8H PRN 06/23/19 09/06/21 History Acetaminophen Tab [Tylenol] 650 mg PO Q4-6H PRN 02/17/20 09/06/21 History Citalopram Hydrobromide [CeleXA] 20 mg PO DAILY 09/06/21 09/06/21 History traZODone HCL [Desyrel] 100 mg PO HS 09/06/21 09/06/21 History Allergies Allergy/AdvReac Type Severity Reaction Status Date / Time vancomycin Allergy Severe Rash/Hives, Verified 09/06/21 12:49 itching, burning Physical Exam Vitals: Vital Signs Temp Pulse Resp BP Pulse Ox 09/06/21 12:46 79 18 116/82 98 09/06/21 11:52 97.7 F 73 18 118/75 98 09/06/21 10:37 96.8 F L 101 H 20 134/87 96 Intake and Output 09/05/21 09/06/21 09/06/21 22:59 06:59 14:59 Other: Weight 83.461 kg GENERAL: The patient is alert and oriented x3, not in any acute distress. Well developed, well nourished. HEENT: Pupils are round and equally reacting to light. EOMI. No scleral icterus. No conjunctival pallor. Normocephalic, atraumatic. No pharyngeal erythema. No thyromegaly. CARDIOVASCULAR: S1 and S2 present. No murmurs, rubs, or gallops. PULMONARY: Chest is clear to auscultation, no wheezing or crackles. ABDOMEN: Soft, nontender, nondistended, normoactive bowel sounds. No palpable organomegaly. MUSCULOSKELETAL: No joint swelling or deformity. EXTREMITIES: No cyanosis, clubbing, or pedal edema. NEUROLOGICAL: Gross neurological examination did not reveal any focal deficits. SKIN: No rashes. No petechiae Results CBC & Chem 7: 09/06/21 11:24 09/06/21 11:24 Assessment and Plan Assessment: Left leg weakness and left side blurred vision suspicious for MS exacerbation History of rheumatoid arthritis History of anxiety and trauma. Plan: This is a pleasant 40 years old female who presents with MS exacerbation Patient received 1 dose of methylprednisolone, we will continue treatment for 3 more days. Neurology consult Labs and medication were reviewed.. Continue same treatment. Continue with symptomatic treatment. Resume home medication. Monitor lytes and vitals. DVT and GI prophylaxis. Further recommendations depends on the clinical course of the patient DVT prophylaxis: Subcutaneous heparin GI Prophylaxis: Pepcid PT/OT: Pending Prognosis is guarded
--- NOTE | 2021-09-06 16:00 | P.CNNES ---
History of Present Illness Consult date: 09/06/21 Requesting physician: Jean E Danyelle Reason for Consult: left hemiparesis, MS exacerbation History of Present Illness: This is a 40-year-old woman with history of multiple sclerosis that was diagnosed in 2003, optic neuritis of bilateral eyes, drug use (meth), tobacco use who presented emergency department on 09/06/2021 because of the feeling unsteady for the last week and the today she noticed the left side is weak and her vision out of the left lateral eye is blurry. She denies of any numbness, any difficulty getting her words out, any difficulty swallowing, any weakness on the right side. Patient stated that she's not any disease modifying agents since early 2005. She said that previously she was placed on Avonex and developed some side effects that she was placed on Copaxone but then stopped. She said that she was followed up in the [facility] with Dr. Garcia and the last time as she was evaluated by neurologist was in and has not followed up with anybody because she was dealing with her drug problem. She said that she's been now clean using meth since January 2021 and has stopped smokin g in March 2021. She said that she was smoking 1 pack lasting 3 days and she is been smoking for years. She said that she had optic neuritis of both eyes and she had significant the visual defect of both eyes but that drastically improved. She denies of history of diabetes, hypertension Of note patient was in Hospital by Dr. Mari (neuro-hospitalist) on the 02/17/2020 and he recommended MRI for MS but I don't see any MRI results and patient could not remember her previous visit in our facility. Please review his note for further details. Some other workup in our facility consisted of: Initial vital signs his blood pressure of 134/87, heart rate of 101, temperature of 96.8 Fahrenheit oral, respiratory of 20, pulse ox of 96% room air. CBC with differential is unremarkable Chemistry panel seems unremarkable. Urine hCG is nondetected next Urinalysis is negative for urinary tract infection Castillo virus PCR is nondetected. Review of Systems Review of system: The 12 point system was reviewed and apparent positive and negative per HPI. Past Medical History Past Medical History: Blood Disorder, Eye Disorder, Neurologic Disorder, Pulmonary Embolus (PE), Rheumatoid Arthritis (RA), Vascular Disorder Additional Past Medical History / Comment(s): MS, optic neuritis, proficiency C & S disorder, PE/pt cannot recall laterallity, aortic calcification, chin abscess/sepsis, UTI, chronic low back pain/bulging discs, possible ventral hernia, past meth abuse/clean for 7 months. History of Any Multi-Drug Resistant Organisms: MRSA Date of last positivie culture/infection: 06/21/19 [facility] MDRO Source:: Chin Past Surgical History: Appendectomy Additional Past Surgical History / Comment(s): ectopic (2/ L fallopian tube rupture with surgery, R labia abscess/I&D Past Anesthesia/Blood Transfusion Reactions: No Reported Reaction Past Psychological History: Anxiety Additional Psychological History / Comment(s): Pt currently staying at [facility] d/t was homeless and at higher risk to relapse with meth addiction. Past rehab for meth addiction/clean for [address] Pt [address] not [address], she gets to [facility], [place] by bus or her sister. She is otherwise independent. Smoking Status: Former smoker Past Alcohol Use History: None Reported Additional Past Alcohol Use History / Comment(s): Pt started smoking in 1997 and quit 3 months ago. Past Drug Use History: Methamphetamine Additional Drug Use History / Comment(s): Pt has hx of meth addiction with rehab. She has not used meth in 7 months. - Past Family History Father Family Medical History: No Reported History Mother History Unknown: Yes Medications and Allergies Home Medications Medication Instructions Recorded Confirmed Type Ibuprofen [Motrin Ib] 800 mg PO Q8H PRN 06/23/19 09/06/21 History Acetaminophen Tab [Tylenol] 650 mg PO Q4-6H PRN 02/17/20 09/06/21 History Citalopram Hydrobromide [CeleXA] 20 mg PO DAILY 09/06/21 09/06/21 History traZODone HCL [Desyrel] 100 mg PO HS 09/06/21 09/06/21 History Allergies Allergy/AdvReac Type Severity Reaction Status Date / Time vancomycin Allergy Severe Rash/Hives, Verified 09/06/21 12:49 itching, burning Physical Examination - Vital Signs Vital Signs: Vital Signs Temp Pulse Resp BP Pulse Ox 09/06/21 12:46 79 18 116/82 98 09/06/21 11:52 97.7 F 73 18 118/75 98 09/06/21 10:37 96.8 F L 101 H 20 134/87 96 Intake and Output 09/06/21 09/06/21 09/06/21 06:59 14:59 22:59 Other: Weight 83.461 kg GENERAL: The patient is lying in bed and is not in acute distress. CHEST: The heart rate is regular rate rhythm. No murmurs to auscultation. LUNG: Clear to auscultation bilaterally no wheezing noted throughout. Not labored breathing. ABDOMEN/GI: Bowel sounds present in all 4 quadrants. No tenderness to palpation throughout. NEUROLOGICAL: Higher mental function: The patient is awake, alert, oriented to self, place and time. Patient is following commands. No aphasia and no neglect. Cranial nerves: The pupils are round, equal and reactive to light and accommodation. Visual verduzco are full to confrontation throughout. Extraocular movement is intact no nystagmus is noted. Facial sensation is normal to touch throughout. The facial strength is normal throughout. Hearing is normal bilaterally to hand rub. Tongue is midline and moved [id number] without any difficulty. No dysarthria is noted. Shoulder shrug is normal bilaterally. Motor: Gait is deferred. The strength is left side is 4+ to 5- (in lower extremity is seems more knee extension). Otherwise 5 over 5 throughout. Normal tone and bulk. Cerebellum: Normal finger to nose heel to chin bilaterally. Sensation: Sensation is normal to touch throughout. Reflexes (right/left): 2+ throughout. Plantars are downgoing bilaterally. Results - Laboratory Findings CBC and BMP: 09/06/21 11:24 09/06/21 11:24 Assessment and Plan Assessment: Left sided weakness, left blurry vision for past day and unsteady gait for past one week: Seems Probable for Multiple Sclerosis exacerbation (patient has not been following-up with neurologist since and not on Disease Modifying Agent). 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 In the emergency department the patient was given Solu-Medrol 1000 mg once. Then was started on a daily basis for 3 days. I stopped order for 3 days until we get the MRI of the brain and C-spine to see if there is any new lesions. If the patient has any new lesions that explains her symptoms then recommend Solu-Medrol 500 mg IV twice a day for 3-5 days rather than at thousand milligrams daily at wants because of the side effects of the steroids. The patient started on steroids recommend sugar monitoring will defer that to the primary team Every 4 hours neuro checks Consulted PT and OT We'll defer the rest of the medical management to the primary team Upon discharge patient stated that she's can follow-up in the my clinic with her neurologist Dr. Martinez and recommended for her to follow-up within 1-2 weeks as an outpatient The plan is discussed with the patient nurse as well as the primary attending. Thank you for the consultation. Dr. Funes is starting neurology service tomorrow AM then Dr. Mari will start coverage this Thursday. Joshua Velásquez M.D. Neuro-hospitalist Time with Patient: Greater than 30
[2021-09-06 17:53] LABS: Glucose,Whole Blood 188 mg/dL (75-99)
[2021-09-06] MEDS: INSULIN ASPART (NovoLOG) 100 UNIT/ML VIAL SQ SCH ×2 (17:58→20:33)
[2021-09-06 19:46] LABS: Glucose,Whole Blood 251 mg/dL (75-99)
--- NOTE | 2021-09-06 20:08 | MR ---
EXAMINATION TYPE: MR brain/cspine wo/w DATE OF EXAM: 09/06/2021 COMPARISON: HISTORY: Left sided weakness, blurred vision left eye, MS. CONTRAST: Standard multiplanar, multisequence MRI departmental protocol images were obtained without contrast a nd with 8 mL intravenous Gadavist gadolinium contrast. Multiplanar multiecho imaging of the brain and cervical spine without and with IV contrast. Ventricles of normal size. There is no mass effect nor midline shift. There is extensive increased si gnal in the periventricular white matter with coalescent areas measuring up to 1.5 cm. There is invol vement of corpus callosum bilaterally. There is no definite cortical infarcts. There is 7 mm focus of increased signal in the anterior latoya on the left side. There is no evidence of orbital mass. Sella turcica appears normal. Optic chiasm is intact. There is 1.5 cm focus of cortical increased signal right parietal lobe. The cervical vertebra have normal alignment. Cervical spinal cord shows fairly normal signal pattern. There is no edema. At C5-6 there is a small posterior disc herniation. There is developmentally adeq uate spinal canal. No spinal stenosis. The contrast images show no pathologic enhancement. There is normal enhancement of the venous sinuses . There is no pathologic enhancement in the cervical spine. There are multiple enlarged bilateral ant erior and posterior triangle cervical lymph nodes. IMPRESSION: There is cervical lymphadenopathy. Numerous white matter lesions as above consistent with demyelinating disease also involving the corpu s callosum. There is lesion in the left anterior latoya. No evidence of demyelinating disease of the ce rvical spine. Mild posterior disc bulging at C5-C6. No spinal stenosis. Small right parietal cortical lesion consistent with an infarct.
[2021-09-06] MEDS: traZODone HCL 100 MG TAB PO SCH (20:31)
[2021-09-06] MEDS: FAMOTIDINE 20 MG/2 ML VIAL IV SCH (20:32)
[2021-09-06] MEDS: HEPARIN SODIUM,PORCINE/PF 5,000 UNIT/0.5 ML SYRINGE SQ SCH (20:32)
[2021-09-06] MEDS: ACETAMINOPHEN TAB 325 MG TAB PO PRN (20:32)
[2021-09-06] MEDS ORDERED: ASPIRIN 81 MG PO STA (21:06)
[2021-09-07] MEDS: IBUPROFEN 400 MG TAB PO PRN (06:08)
[2021-09-07 07:08] LABS: Glucose,Whole Blood 154 mg/dL (75-99)
[2021-09-07] MEDS: ACETAMINOPHEN TAB 325 MG TAB PO PRN (07:35)
[2021-09-07] MEDS: HEPARIN SODIUM,PORCINE/PF 5,000 UNIT/0.5 ML SYRINGE SQ SCH ×2 (07:35→20:00)
[2021-09-07] MEDS: CITALOPRAM HYDROBROMIDE 20 MG TAB PO SCH (07:35)
[2021-09-07] MEDS: FAMOTIDINE 20 MG/2 ML VIAL IV SCH (07:35)
[2021-09-07] MEDS: INSULIN ASPART (NovoLOG) 100 UNIT/ML VIAL SQ SCH ×4 (07:35→21:44)
[2021-09-07] MEDS ORDERED: methylPREDNISolone SOD SUCCIN 1,000 MG in SODIUM CHLORIDE 0.9% 250 ML IVPB STA (08:31)
[2021-09-07] MEDS ORDERED: methylPREDNISolone SOD SUCCIN 1,000 MG in SODIUM CHLORIDE 0.9% 250 ML IVPB SCH (09:00)
[2021-09-07] MEDS ORDERED: methylPREDNISolone SOD SUCCIN 500 MG in SODIUM CHLORIDE 0.9% 100 ML IVPB SCH (10:00)
[2021-09-07 11:32] LABS: Glucose,Whole Blood 212 mg/dL (75-99)
--- NOTE | 2021-09-07 12:22 | P.PN ---
Subjective This is a pleasant 40 years old female with past medical history of multiple sclerosis, rheumatoid arthritis, optic neuritis, trauma and anxiety. Presents because of left sided weakness both leg and arm for about a week similar to her previous attacks of MS, multiple sclerosis. Today also she developed some blurriness in her left eye but no painful eye movement, no headache but she thinks she is a bit confused although she is oriented to time, place and person and she has insight into her illness she denies any chest pain, dyspnea, no change in urine or bowel habits. No fever. She denies alcohol or illicit drugs. Labs including CBC, BMP, INR and liver enzymes are unremarkable. Urine analysis is no suspicious of infection. Old CT on 03/[address] of the head and neck: No acute intracranial process, no acute cervical spine fracture. She has acute comminuted minimally displaced nasal bridge fracture extending into the anterior septum with perhaps slightly more prominent right nasal septal deviation. : Patient was started on steroids 09/07/2021 She awakened alert, no headache still complaining from left hemiparesis in her left arm and leg with blurred vision male in the left eye, no other new neurological deficits. MRI of the brain and cervical spine showing cervical lymphadenopathy Numerous white matter lesions consistent with demyelinating disease also involving the corpus callosum. There is a lesion in the left anterior latoya. No evidence of demyelinating disease of the cervical spine. Mild posterior disc bulging at C5-C6. No spinal stenosis Small right parietal cortical lesion consistent with an infarct Patient was restarted on Solu-Medrol 1000 mg daily per neurologist. Objective - Vital Signs Vital signs: Vital Signs Temp 97.7 F 09/07/21 07:00 Pulse 71 09/07/21 07:00 Resp 18 09/07/21 07:00 BP 121/73 09/07/21 07:00 Pulse Ox 94 L 09/07/21 07:00 Intake & Output 09/06/21 09/07/21 09/07/21 18:59 06:59 18:59 Intake Total 118 240 Balance 118 240 Weight 83.461 kg Intake: Oral 118 240 Other: Voiding Method Toilet # Voids 1 - Exam -GENERAL: The patient is alert and oriented x3, not in any acute distress. Obese HEENT: Pupils are round and equally reacting to light. EOMI. No scleral icterus. No conjunctival pallor. Normocephalic, atraumatic. No pharyngeal erythema. No thyromegaly. CARDIOVASCULAR: S1 and S2 present. No murmurs, rubs, or gallops. PULMONARY: Chest is clear to auscultation, no wheezing or crackles. ABDOMEN: Soft, nontender, nondistended, normoactive bowel sounds. No palpable organomegaly. MUSCULOSKELETAL: No joint swelling or deformity. EXTREMITIES: No cyanosis, clubbing, or pedal edema. -NEUROLOGICAL: Cranial nerves are grossly intact. Mild left-sided hemiparesis involving both left leg and arm, strength right side is 5/5. Sensation intact. Meningeal signs are absent. SKIN: No rashes. no petechiae. - Labs CBC & Chem 7: 09/06/21 11:24 09/06/21 11:24 Labs: Abnormal Lab Results - Last 24 Hours (Table) 09/06/21 09/06/21 09/07/21 Range/Units 17:52 19:45 07:02 POC Glucose (mg/dL) 188 H 251 H 154 H (75-99) mg/dL Assessment and Plan Assessment: Next multiple sclerosis exacerbation with Left leg weakness and left side blurred vision , with evidence of demyelinating disease on MRI Cervical lymphadenopathy Possible small right parietal cortical lesion consistent with an infarct History of rheumatoid arthritis History of anxiety and trauma. Plan: This is a pleasant 40 years old female who presents with MS exacerbation Patient received 1 dose of methylprednisolone, we will continue treatment for 3- 5 more days. Confirmed with the neurologist Neurology consult Labs and medication were reviewed.. Continue same treatment. Continue with symptomatic treatment. Resume home medication. Monitor lytes and vitals. DVT and GI prophylaxis. Further recommendations depends on the clinical course of the patient DVT prophylaxis: Subcutaneous heparin GI Prophylaxis: Pepcid PT/OT: Pending Prognosis is guarded
[2021-09-07 12:39] LABS: Chol/HDL Ratio 4.69 Ratio; LDL Cholesterol,Calculated 201.4 mg/dL (0.0-131.0); VLDL Calculation 11.82 mg/dL (5.00-40.00)
--- NOTE | 2021-09-07 15:54 | P.PN ---
Subjective Progress Note Date: 09/07/21 The patient is a 40-year-old female who is seen in neurologic follow- up on September 07, 2021, via telemedicine. The patient originally presented to the emergency department with new, left- sided weakness and blurred vision. Patient reportedly was diagnosed with multiple sclerosis several years ago. She originally was taking Copaxone however is no longer on any preventative medications for her MS. She has reportedly not seen her neurologist in several years. The patient reports that her left leg and hand weakness began approximately one week ago. She also noticed decreased coordination of her left hand. She says the symptoms worsened in the past 2 days. In addition, the patient reports blurring of her vision. The patient reportedly fell 2 days ago. In addition, the patient reports decreased sensation of her left hand and a tingling sensation of the dorsum of her left hand. The patient denies difficulty with speech and swallowing. She does report being off balance because of her left- sided weakness. MRI of the brain and cervical spinal cord were performed this morning. These images were personally reviewed. There are no cervical spinal cord lesions. There are numerous periventricular white matter lesions in the brain. Objective - Vital Signs Vital signs: Vital Signs Temp 98 F 09/07/21 14:57 Pulse 109 H 09/07/21 14:57 Resp 18 09/07/21 14:57 BP 154/87 09/07/21 14:57 Pulse Ox 94 L 09/07/21 14:57 Intake & Output 09/06/21 09/07/21 09/07/21 18:59 06:59 18:59 Intake Total 118 240 Balance 118 240 Weight 83.461 kg Intake: Oral 118 240 Other: Voiding Method Toilet # Voids 1 3 - Exam Gen.: The patient is reclining in the bed. She is well-nourished, well- developed and in no acute distress. HEENT: Head is atraumatic, normocephalic. Fundus not visualized. There is no scleral icterus. Mucous membranes are moist. Neck: Supple without carotid bruits Heart: Regular rate and rhythm Neurological examination Mental status: The patient is awake, alert and oriented 3. Her speech is clear. There is no dysarthria or aphasia. Cranial nerves: Pupils are equal at 3 mm and reactive. Visual verduzco are full to confrontation. Extraocular movements are intact. There is no nystagmus. Facial sensation is intact. There is questionable flattening of the right nasolabial fold. Hearing is grossly intact. Uvula and palate are midline. Shoulder shrug is symmetric. Tongue protrudes midline. Motor: Upper extremity strength 5/5. Left hip flexor 3/5. Bilateral quadriceps and ankle dorsi and plantar flexors 5/5. Sensation: Grossly intact to light touch throughout. Coordination: Finger to nose and rapid alternating movements are intact. There is ataxia with left-sided [id number] testing. Deep tendon reflexes: 3+/4+ in the left upper and lower extremities. Right upper and lower extremity reflexes 2+/4+. - Labs CBC & Chem 7: 09/06/21 11:24 09/06/21 11:24 Labs: Abnormal Lab Results - Last 24 Hours (Table) 09/06/21 09/06/21 09/07/21 Range/Units 17:52 19:45 06:49 POC Glucose (mg/dL) 188 H 251 H (75-99) mg/dL Cholesterol 271.00 H (0.00-200.00) mg/dL LDL Cholesterol, Calc 201.4 H (0.0-131.0) mg/dL 09/07/21 09/07/21 Range/Units 07:02 11:26 POC Glucose (mg/dL) 154 H 212 H (75-99) mg/dL Cholesterol (0.00-200.00) mg/dL LDL Cholesterol, Calc (0.0-131.0) mg/dL Assessment and Plan Assessment: 1. Exacerbation of multiple sclerosis 2. Hyperlipidemia Plan: 1. Would treat exacerbation with methylprednisolone 1 g IV piggyback daily 3 days. The patient already received 1 dose in the emergency department and so will order 2 more doses. 2. Physical therapy evaluation and treatment 3. The patient is advised to follow-up with her neurologist for further treatment and evaluation 4. Tapering dose of the steroids is not necessary Time with Patient: Less than 30 (spent 25 minutes with patient via telemedicine)
[2021-09-07 17:11] LABS: Glucose,Whole Blood 196 mg/dL (75-99)
[2021-09-07] MEDS: FAMOTIDINE 20 MG TAB PO SCH (20:00)
[2021-09-07 20:22] LABS: Glucose,Whole Blood 144 mg/dL (75-99)
[2021-09-07] MEDS: traZODone HCL 100 MG TAB PO SCH (21:43)
[2021-09-08 07:10] LABS: Glucose,Whole Blood 121 mg/dL (75-99)
[2021-09-08] MEDS: INSULIN ASPART (NovoLOG) 100 UNIT/ML VIAL SQ SCH ×4 (07:19→21:02)
[2021-09-08] MEDS: HEPARIN SODIUM,PORCINE/PF 5,000 UNIT/0.5 ML SYRINGE SQ SCH ×2 (07:48→21:02)
[2021-09-08] MEDS: CITALOPRAM HYDROBROMIDE 20 MG TAB PO SCH (07:48)
[2021-09-08] MEDS: FAMOTIDINE 20 MG TAB PO SCH ×2 (07:48→21:02)
[2021-09-08] MEDS ORDERED: methylPREDNISolone SOD SUCCIN 1,000 MG in SODIUM CHLORIDE 0.9% 250 ML IVPB ONE (09:00)
[2021-09-08 11:39] LABS: Glucose,Whole Blood 121 mg/dL (75-99)
--- NOTE | 2021-09-08 14:04 | P.PN ---
Subjective Progress Note Date: 09/08/21 The patient is a 40-year-old female who is seen in neurologic follow- up on September 07, 2021, via telemedicine. The patient originally presented to the emergency department with new, left- sided weakness and blurred vision. Patient reportedly was diagnosed with multiple sclerosis several years ago. She originally was taking Copaxone however is no longer on any preventative medications for her MS. She has reportedly not seen her neurologist in several years. The patient reports that her left leg and hand weakness began approximately one week ago. She also noticed decreased coordination of her left hand. She says the symptoms worsened in the past 2 days. In addition, the patient reports blurring of her vision. The patient reportedly fell 2 days ago. In addition, the patient reports decreased sensation of her left hand and a tingling sensation of the dorsum of her left hand. The patient denies difficulty with speech and swallowing. She does report being off balance because of her left- sided weakness. MRI of the brain and cervical spinal cord were performed this morning. These images were personally reviewed. There are no cervical spinal cord lesions. There are numerous periventricular white matter lesions in the brain. The patient is seen in neurologic follow up on September 08, 2021, via telemedicine. The patient reports not feeling any improvement with steroids, in fact, she is feeling worse. She says that her left arm and leg are still feeling shaky and weak. She is having difficulty ambulating. She says she is not sure how she will function at home. The patient has not yet been seen by physical therapy. Objective - Vital Signs Vital signs: Vital Signs Temp 98 F 09/08/21 07:00 Pulse 68 09/08/21 07:00 Resp 18 09/08/21 07:00 BP 127/81 09/08/21 07:00 Pulse Ox 96 09/08/21 07:00 Intake & Output 09/07/21 09/08/21 09/08/21 18:59 06:59 18:59 Intake Total 480 Balance 480 Intake: Oral 480 Other: Voiding Method Toilet Toilet # Voids 2 2 0 - Exam Gen.: Patient is well-nourished, well-developed and in no acute distress HEENT: Head is atraumatic, normocephalic. Fundus not visualized. There is no scleral icterus. Mucous membranes are moist. Neurological examination Mental status: The patient is awake, alert and oriented 3. Her speech is clear. Affect is appropriate Cranial nerves: 2-12 grossly intact Coordination: Finger to nose testing and rapid alternating movements are intact. There continues to be left-sided ataxia with [id number] testing. Gait: Wide-based, ataxic with left sided limp. - Labs CBC & Chem 7: 09/06/21 11:24 09/06/21 11:24 Labs: Abnormal Lab Results - Last 24 Hours (Table) 09/07/21 09/07/21 09/07/21 Range/Units 06:49 17:02 20:21 POC Glucose (mg/dL) 196 H 144 H (75-99) mg/dL Cholesterol 271.00 H (0.00-200.00) mg/dL LDL Cholesterol, Calc 201.4 H (0.0-131.0) mg/dL 09/08/21 09/08/21 Range/Units 07:01 11:28 POC Glucose (mg/dL) 121 H 121 H (75-99) mg/dL Cholesterol (0.00-200.00) mg/dL LDL Cholesterol, Calc (0.0-131.0) mg/dL Assessment and Plan Assessment: 1. Exacerbation of multiple sclerosis-no improvement at this time, after 3 days of IV Solu-Medrol 2. Hyperlipidemia Plan: 1. Would treat exacerbation with methylprednisolone 1 g IV piggyback daily, for 2 additional doses 2. Physical therapy evaluation and treatment 3. The patient is advised to follow-up with her neurologist for further treatment and evaluation 4. Since the patient is receiving 5 days of IV Solu-Medrol, would recommend a by mouth prednisone taper, following the last IV dose Time with Patient: Less than 30 (spent 20 minutes with patient via telemedicine)
[2021-09-08 17:27] LABS: Glucose,Whole Blood 160 mg/dL (75-99)
[2021-09-08] MEDS: ACETAMINOPHEN TAB 325 MG TAB PO PRN (18:46)
[2021-09-08] MEDS ORDERED: ASPIRIN 81 MG PO STA (19:24)
--- NOTE | 2021-09-08 19:29 | P.PN ---
Subjective This is a pleasant 40 years old female with past medical history of multiple sclerosis, rheumatoid arthritis, optic neuritis, trauma and anxiety. Presents because of left sided weakness both leg and arm for about a week similar to her previous attacks of MS, multiple sclerosis. Today also she developed some blurriness in her left eye but no painful eye movement, no headache but she thinks she is a bit confused although she is oriented to time, place and person and she has insight into her illness she denies any chest pain, dyspnea, no change in urine or bowel habits. No fever. She denies alcohol or illicit drugs. Labs including CBC, BMP, INR and liver enzymes are unremarkable. Urine analysis is no suspicious of infection. Old CT on 03/[address] of the head and neck: No acute intracranial process, no acute cervical spine fracture. She has acute comminuted minimally displaced nasal bridge fracture extending into the anterior septum with perhaps slightly more prominent right nasal septal deviation. : Patient was started on steroids 09/07/2021 She awakened alert, no headache still complaining from left hemiparesis in her left arm and leg with blurred vision male in the left eye, no other new neurological deficits. MRI of the brain and cervical spine showing cervical lymphadenopathy Numerous white matter lesions consistent with demyelinating disease also involving the corpus callosum. There is a lesion in the left anterior latoya. No evidence of demyelinating disease of the cervical spine. Mild posterior disc bulging at C5-C6. No spinal stenosis Small right parietal cortical lesion consistent with an infarct Patient was restarted on Solu-Medrol 1000 mg daily per neurologist. 09/08/2021 Patient states no improvement in her left hemiparesis and left blurred vision and actually she was going to the restroom by herself without asking help when she fell and bumped her head. Because of these were going to put her on a neuro check and we will hold off any NSAIDs for 24 hours to make sure there is no bleeding She still remains on IV sodium Medrol 1000 mg daily Neurology on the case Glucose is controlled B12 is 371, we are going to start replacement therapy Objective - Vital Signs Vital signs: Vital Signs Temp 98 F 09/08/21 07:00 Pulse 68 09/08/21 07:00 Resp 18 09/08/21 07:00 BP 127/81 09/08/21 07:00 Pulse Ox 96 09/08/21 07:00 Intake & Output 09/07/21 09/08/21 09/08/21 18:59 06:59 18:59 Intake Total 480 Balance 480 Intake: Oral 480 Other: Voiding Method Toilet Toilet # Voids 2 2 0 - Exam -GENERAL: The patient is alert and oriented x3, not in any acute distress. Obese HEENT: Pupils are round and equally reacting to light. EOMI. No scleral icterus. No conjunctival pallor. Normocephalic, atraumatic. No pharyngeal erythema. No thyromegaly. CARDIOVASCULAR: S1 and S2 present. No murmurs, rubs, or gallops. PULMONARY: Chest is clear to auscultation, no wheezing or crackles. ABDOMEN: Soft, nontender, nondistended, normoactive bowel sounds. No palpable organomegaly. MUSCULOSKELETAL: No joint swelling or deformity. EXTREMITIES: No cyanosis, clubbing, or pedal edema. -NEUROLOGICAL: Cranial nerves are grossly intact. Mild left-sided hemiparesis involving both left leg and arm, strength right side is 5/5. Sensation intact. Meningeal signs are absent. SKIN: No rashes. no petechiae. - Labs CBC & Chem 7: 09/06/21 11:24 09/06/21 11:24 Labs: Abnormal Lab Results - Last 24 Hours (Table) 09/07/21 09/07/21 09/07/21 Range/Units 06:49 11:26 17:02 POC Glucose (mg/dL) 212 H 196 H (75-99) mg/dL Cholesterol 271.00 H (0.00-200.00) mg/dL LDL Cholesterol, Calc 201.4 H (0.0-131.0) mg/dL 09/07/21 09/08/21 Range/Units 20:21 07:01 POC Glucose (mg/dL) 144 H 121 H (75-99) mg/dL Cholesterol (0.00-200.00) mg/dL LDL Cholesterol, Calc (0.0-131.0) mg/dL Assessment and Plan Assessment: Next multiple sclerosis exacerbation with Left leg weakness and left side blurred vision , with evidence of demyelinating disease on MRI Cervical lymphadenopathy, patient informed and she agrees for outpatient follow- up Possible small right parietal cortical lesion consistent with an infarct Borderline B12 History of rheumatoid arthritis History of anxiety and trauma. Plan: This is a pleasant 40 years old female who presents with MS exacerbation Patient received 1 dose of methylprednisolone, we will continue treatment for 3- 5 more days. Confirmed with the neurologist Neurology consult Neuro check Patient consulted about fall precaution and 2 as Always and she agrees Start B12 replacement therapy Labs and medication were reviewed.. Continue same treatment. Continue with symptomatic treatment. Resume home medication. Monitor lytes and vitals. DVT and GI prophylaxis. Further recommendations depends on the clinical course of the patient DVT prophylaxis: Subcutaneous heparin GI Prophylaxis: Pepcid PT/OT: Pending Prognosis is guarded
[2021-09-08 20:26] LABS: Glucose,Whole Blood 186 mg/dL (75-99)
[2021-09-08] MEDS: traZODone HCL 100 MG TAB PO SCH (21:02)
[2021-09-09] MEDS: ACETAMINOPHEN TAB 325 MG TAB PO PRN ×3 (04:24→17:28)
[2021-09-09 07:23] LABS: Glucose,Whole Blood 125 mg/dL (75-99)
[2021-09-09] MEDS: INSULIN ASPART (NovoLOG) 100 UNIT/ML VIAL SQ SCH ×4 (08:15→21:51)
[2021-09-09] MEDS: CYANOCOBALAMIN 500 MCG TAB PO SCH (08:31)
[2021-09-09] MEDS: HEPARIN SODIUM,PORCINE/PF 5,000 UNIT/0.5 ML SYRINGE SQ SCH ×2 (08:31→21:00)
[2021-09-09] MEDS: FAMOTIDINE 20 MG TAB PO SCH ×2 (08:31→21:00)
[2021-09-09] MEDS: methylPREDNISolone SOD SUCCIN 1,000 MG in SODIUM CHLORIDE 0.9% 250 ML IVPB SCH (08:31)
[2021-09-09] MEDS: CITALOPRAM HYDROBROMIDE 20 MG TAB PO SCH (08:31)
[2021-09-09 11:28] LABS: Glucose,Whole Blood 119 mg/dL (75-99)
[2021-09-09 17:14] LABS: Glucose,Whole Blood 167 mg/dL (75-99)
--- NOTE | 2021-09-09 17:24 | P.PN ---
Subjective This is a pleasant 40 years old female with past medical history of multiple sclerosis, rheumatoid arthritis, optic neuritis, trauma and anxiety. Presents because of left sided weakness both leg and arm for about a week similar to her previous attacks of MS, multiple sclerosis. Today also she developed some blurriness in her left eye but no painful eye movement, no headache but she thinks she is a bit confused although she is oriented to time, place and person and she has insight into her illness she denies any chest pain, dyspnea, no change in urine or bowel habits. No fever. She denies alcohol or illicit drugs. Labs including CBC, BMP, INR and liver enzymes are unremarkable. Urine analysis is no suspicious of infection. Old CT on 03/[address] of the head and neck: No acute intracranial process, no acute cervical spine fracture. She has acute comminuted minimally displaced nasal bridge fracture extending into the anterior septum with perhaps slightly more prominent right nasal septal deviation. : Patient was started on steroids 09/07/2021 She awakened alert, no headache still complaining from left hemiparesis in her left arm and leg with blurred vision male in the left eye, no other new neurological deficits. MRI of the brain and cervical spine showing cervical lymphadenopathy Numerous white matter lesions consistent with demyelinating disease also involving the corpus callosum. There is a lesion in the left anterior latoya. No evidence of demyelinating disease of the cervical spine. Mild posterior disc bulging at C5-C6. No spinal stenosis Small right parietal cortical lesion consistent with an infarct Patient was restarted on Solu-Medrol 1000 mg daily per neurologist. 09/08/2021 Patient states no improvement in her left hemiparesis and left blurred vision and actually she was going to the restroom by herself without asking help when she fell and bumped her head. Because of these were going to put her on a neuro check and we will hold off any NSAIDs for 24 hours to make sure there is no bleeding She still remains on IV sodium Medrol 1000 mg daily Neurology on the case Glucose is controlled B12 is 371, we are going to start replacement therapy 09/09/2021 Patient reports improvement in her vision and left arm partially, but not in the leg. No other new complaints per patient No chest pain or dyspnea or change in urine or bowel habits. No fever. Hemodynamically stable. She remains on IV Solu-Medrol for her MS exacerbation, Vitamin B12 replacement is added Neurologist on the case Today I told the patient the need for follow-up with surgery and hematology/oncology as an outpatient in 1 week after discharge for her cervical lymphadenopathy and she agrees Objective - Vital Signs Vital signs: Vital Signs Temp 98.1 F 09/09/21 07:00 Pulse 82 09/09/21 07:00 Resp 18 09/09/21 07:00 BP 121/75 09/09/21 07:00 Pulse Ox 96 09/09/21 07:00 Intake & Output 09/08/21 09/09/21 09/09/21 18:59 06:59 18:59 Intake Total 480 500 120 Balance 480 500 120 Intake: Oral 480 500 120 Other: Voiding Method Toilet Toilet # Voids 2 2 2 - Exam -GENERAL: The patient is alert and oriented x3, not in any acute distress. Obese HEENT: Pupils are round and equally reacting to light. EOMI. No scleral icterus. No conjunctival pallor. Normocephalic, atraumatic. No pharyngeal erythema. No thyromegaly. CARDIOVASCULAR: S1 and S2 present. No murmurs, rubs, or gallops. PULMONARY: Chest is clear to auscultation, no wheezing or crackles. ABDOMEN: Soft, nontender, nondistended, normoactive bowel sounds. No palpable organomegaly. MUSCULOSKELETAL: No joint swelling or deformity. EXTREMITIES: No cyanosis, clubbing, or pedal edema. -NEUROLOGICAL: Cranial nerves are grossly intact. Mild left-sided hemiparesis involving both left leg and arm, strength right side is 5/5. Sensation intact. Meningeal signs are absent. SKIN: No rashes. no petechiae. - Labs CBC & Chem 7: 09/06/21 11:24 09/06/21 11:24 Labs: Abnormal Lab Results - Last 24 Hours (Table) 09/08/21 09/08/21 09/08/21 Range/Units 11:28 17:25 20:25 POC Glucose (mg/dL) 121 H 160 H 186 H (75-99) mg/dL 09/09/21 Range/Units 07:14 POC Glucose (mg/dL) 125 H (75-99) mg/dL Assessment and Plan Assessment: Next multiple sclerosis exacerbation with Left leg weakness and left side blurred vision , with evidence of demyelinating disease on MRI Cervical lymphadenopathy, patient informed and she agrees for outpatient follow- up Possible small right parietal cortical lesion consistent with an infarct Borderline B12 History of rheumatoid arthritis History of anxiety and trauma. Plan: This is a pleasant 40 years old female who presents with MS exacerbation Continue with methylprednisolone, we will continue treatment for 3-5 more days. Confirmed with the neurologist Neurology consult Neuro check Continue with B12 replacement therapy Report outpatient hematology/oncology and general surgery for her cervical lymphadenopathy Labs and medication were reviewed.. Continue same treatment. Continue with symptomatic treatment. Resume home medication. Monitor lytes and vitals. DVT and GI prophylaxis. Further recommendations depends on the clinical course of the patient DVT prophylaxis: Subcutaneous heparin GI Prophylaxis: Pepcid PT/OT: Pending Prognosis is guarded
[2021-09-09] MEDS: CYCLOBENZAPRINE 10 MG TAB PO SCH (21:00)
[2021-09-09] MEDS: traZODone HCL 100 MG TAB PO SCH (21:00)
[2021-09-09 21:25] LABS: Glucose,Whole Blood 199 mg/dL (75-99)
--- NOTE | 2021-09-10 05:25 | P.CONS ---
History of Present Illness - Chief Complaint Gait disturbance, MS exacerbation - History of Present Illness I had the opportunity to see patient for inpatient rehab consultation with regard to gait disturbance. She was admitted to [facility] September 06 with confusion, headache in the left greater than right leg weakness, MS exacerbation. She has had MS since 2003. Admitted to Dr. santo. Seen by neurology, Dr. Joshua Velásquez. MRI brain demonstrates demyelinating lesions and C- spine demonstrates small C5 herniation and some adjacent adenopathy. PT reports supervision for bed mobility and minimal assistance for gait 75 feet with roller walker. OT reports minimal assistance for upper and lower dressing and bathing and for toileting. Previous functional history as elicited patient: 40-year-old right-handed white female who is currently living in a fdc with 12 girls, recovering drug and it. She reports that she is previously independent with cooking, laundry, driving, standing shower and gait without device. Does not own a car. PCP is Tatyana Jalloh. Has new neurologist Dr. Cardoso in [place]. Denies tobacco or alcohol. Review of Systems Review of systems: ENT: Denies sneezes or discharge. Eyes: Denies discharge or photophobia. Cardiac: Denies chest pain or palpitation. Pulmonary: Denies cough or shortness of breath. Breast: Denies discharge or lumps. Gastrointestinal: Denies nausea, emesis, constipation, diarrhea. Genitourinary: Denies discharge or frequency. Musculoskeletal: Denies muscle or bone aches. Neurologic: Left-sided weakness leg more than arm. Endocrine: Denies shakes or sweats. Oncology: Denies cancers. Dermatologic: Denies rash, itching, pruritus. ALLERGY/immunology: Denies sneezes, rashes. Past Medical History Past Medical History: Blood Disorder, Eye Disorder, Neurologic Disorder, Pulmonary Embolus (PE), Rheumatoid Arthritis (RA), Vascular Disorder Additional Past Medical History / Comment(s): MS, optic neuritis, proficiency C & S disorder, PE/pt cannot recall laterallity, aortic calcification, chin abscess/sepsis, UTI, chronic low back pain/bulging discs, possible ventral hernia, past meth abuse/clean for 7 months. History of Any Multi-Drug Resistant Organisms: MRSA Year Discovered:: 06/21/[address] [facility] MDRO Source:: [facility] Past Surgical History: Appendectomy Additional Past Surgical History / Comment(s): ectopic (2/ L fallopian tube rupture with surgery, R labia abscess/I&D Past Anesthesia/Blood Transfusion Reactions: No Reported Reaction Past Psychological History: Anxiety Additional Psychological History / Comment(s): Pt currently staying at [facility] d/t was homeless and at higher risk to relapse with meth addiction. Past rehab for meth addiction/clean for [address] months[address] Pt does not drive, she gets to a [facility] by bus or her sister. She is otherwise independent. Smoking Status: Former smoker Past Alcohol Use History: None Reported Additional Past Alcohol Use History / Comment(s): Pt started smoking in 1997 and quit 3 months ago. Past Drug Use History: Methamphetamine Additional Drug Use History / Comment(s): Pt has hx of meth addiction with rehab. She has not used meth in 7 months. - Past Family History Father Family Medical History: No Reported History Mother History Unknown: Yes Medications and Allergies Home Medications Medication Instructions Recorded Confirmed Type Ibuprofen [Motrin Ib] 800 mg PO Q8H PRN 06/23/19 09/06/21 History Acetaminophen Tab [Tylenol] 650 mg PO Q4-6H PRN 02/17/20 09/06/21 History Citalopram Hydrobromide [CeleXA] 20 mg PO DAILY 09/06/21 09/06/21 History traZODone HCL [Desyrel] 100 mg PO HS 09/06/21 09/06/21 History Allergies Allergy/AdvReac Type Severity Reaction Status Date / Time vancomycin Allergy Severe Rash/Hives, Verified 09/06/21 12:49 itching, burning Physical Exam Vitals: Vital Signs Temp Pulse Resp BP BP Pulse Ox 09/10/21 01:21 97.7 F 72 18 134/70 94 L 09/09/21 20:00 85 18 09/09/21 19:49 98.6 F 83 16 134/86 98 09/09/21 15:00 98.2 F 85 18 109/53 96 09/09/21 07:00 98.1 F 82 18 121/75 96 Intake and Output 09/09/21 09/09/21 09/10/21 14:59 22:59 06:59 Intake Total 490 740 Balance 490 740 Intake: Intake, IV Titration 250 Amount methylPREDNISolone SOD 250 SUCC 1,000 mg In Sodium Chloride 0.9% 250 ml @ 250 mls/hr IVPB DAILY [facility] Rx#:[id number] Oral 240 740 Other: Voiding Method Toilet # Voids 2 2 2 Skin: Good color, texture, turgor. General: Medium to overweight build and comfortable appearance. Head: Normocephalic, atraumatic. Eyes: Symmetric. Pupils equal round. Ears: Symmetric. Hearing within normal limits. Mouth: Clear. Neck: Supple. Carotid without bruit. Cardiac: Regular rate and rhythm. Lungs: Clear anteriorly and posteriorly. Abdomen: Soft active nontender. Extremities: Normal tone. Neurological: Mental status: Alert, cooperative, pleasant. Cranial nerves: Symmetric facial tone and trapezius. Motor: Normal strength and isolation all 4 limbs except 4/5 weakness left hand and 4 minus/5 left ankle. Sensation: Intact throughout. DTRs: Symmetric and equal throughout. Mobility: Sits and stands without assistance or verbal cueing or loss of balance. But left ankle in equinovarus and a slight steppage quality, roller walker level. Results CBC & Chem 7: 09/06/21 11:24 09/06/21 11:24 Labs: Abnormal Lab Results - Last 24 Hours (Table) 09/09/21 09/09/21 09/09/21 Range/Units 07:14 11:26 17:09 POC Glucose (mg/dL) 125 H 119 H 167 H (75-99) mg/dL 09/09/21 Range/Units 21:24 POC Glucose (mg/dL) 199 H (75-99) mg/dL Assessment and Plan (1) Exacerbation of multiple sclerosis Current Visit: Yes Status: Acute Code(s): G35 - MULTIPLE SCLEROSIS SNOMED Code(s): 254796738 (2) Cellulitis of chin Current Visit: No Status: Acute Code(s): L03.211 - CELLULITIS OF FACE SNOMED Code(s): 33104029 (3) Factor V Leiden mutation Current Visit: No Status: Acute Code(s): D68.51 - ACTIVATED PROTEIN C RESISTANCE SNOMED Code(s): 801829030 (4) Labial abscess Current Visit: No Status: Acute Code(s): N76.4 - ABSCESS OF VULVA SNOMED Code(s): 150854006 (5) MRSA bacteremia Current Visit: No Status: Acute Code(s): R78.81 - BACTEREMIA SNOMED Code(s): 92385539447117524 Plan: Comments and plan: Patient functionally with MS exacerbation with left hemiparesthesias. PT and OT notes yesterday suggests safety concerns and the ability to tolerate and benefit from therapy. Patient however discusses that she is ambulating in the room at walker level and ambulated in the hallway to the nurse's station yesterday. In fact I didn't observe gait at this a.m. Thus would await therapy notes today to document if this improvement versus ongoing minimal assistance needs.
[2021-09-10 07:28] LABS: Glucose,Whole Blood 123 mg/dL (75-99)
[2021-09-10] MEDS: INSULIN ASPART (NovoLOG) 100 UNIT/ML VIAL SQ SCH ×3 (08:23→17:41)
[2021-09-10] MEDS: HEPARIN SODIUM,PORCINE/PF 5,000 UNIT/0.5 ML SYRINGE SQ SCH ×2 (08:23→21:09)
[2021-09-10] MEDS: CYANOCOBALAMIN 500 MCG TAB PO SCH (08:23)
[2021-09-10] MEDS: FAMOTIDINE 20 MG TAB PO SCH ×2 (08:23→21:08)
[2021-09-10] MEDS: CITALOPRAM HYDROBROMIDE 20 MG TAB PO SCH (08:23)
[2021-09-10] MEDS: methylPREDNISolone SOD SUCCIN 1,000 MG in SODIUM CHLORIDE 0.9% 250 ML IVPB SCH (08:24)
[2021-09-10] MEDS: ACETAMINOPHEN TAB 325 MG TAB PO PRN (09:37)
--- NOTE | 2021-09-10 10:30 | P.PN ---
Subjective Progress Note Date: 09/09/21 Patient was initially seen by Dr. Joshua Velásquez, then followed up by Dr. Funes over the weekend. Please refer to his note for details. I started service today. Patient has MS exacerbation. Today is day #4 out of 5 of her high-dose steroids. Patient is tolerating Solu-Medrol well. Patient states that she was diagnosed with MS in 2003. She was at first placed on Avonex, but had side effects. Then she started Copaxone. She stopped Copaxone in 2014 and has not tried any other disease modifying medication. Her last exacerbation was in 2014. Patient has followed up with Dr. Cardoso at [facility]. MRI of the brain revealed numerous white matter lesions consistent with demyelinating disease, also involving the corpus callosum. There is lesion in the left anterior latoya. No evidence of demyelinating disease of the cervical spine. Mild posterior disc bulging at C5 6. No spinal stenosis. Small right parietal cortical lesion consistent with an infarct. Objective - Vital Signs Vital signs: Vital Signs Temp 97.9 F 09/10/21 07:21 Pulse 64 09/10/21 07:21 Resp 18 09/10/21 07:21 BP 134/72 09/10/21 07:21 Pulse Ox 96 09/10/21 07:21 Intake & Output 09/09/21 09/10/21 09/10/21 18:59 06:59 18:59 Intake Total 730 500 Balance 730 500 Intake: Intake, IV Titration 250 Amount methylPREDNISolone SOD 250 SUCC 1,000 mg In Sodium Chloride 0.9% 250 ml @ 250 mls/hr IVPB DAILY [facility] Rx#:[id number] Oral 480 500 Other: Voiding Method Toilet # Voids 2 2 - Exam Patient is a young female, very pleasant in no acute distress. Patient is alert awake oriented to time place and person. Speech and language functions are normal. Attention, concentration and fund of knowledge is adequa te. No aphasia or dysarthria. On cranial examination, pupils are equal, round and reacting to light, visual verduzco are full on confrontation, extraocular muscles are intact with no nystagmus. Face is symmetric, tongue protrudes to the midline. Palatal elevation and sensation normal, hearing and shoulder shrug normal, facial sensation normal. Shoulder shrug normal. On muscle strength testing, there is no pronator drift and the strength is normal in arms and legs distally and proximally, except left deltoid is 5-and left hip flexion 4, where is it normal on the right. Deep tendon reflexes are 2+ to 3 in the bilateral upper limbs, 3 at both knees, 2+ at the right ankle 3 on the left. Patient's plantar is downgoing on the right, but up on the left with sustained clonus. Sensory to touch is less involving the left arm and leg as compared to right. Cerebellar function showed significant ataxia for [id number], and hobv-cd-[id number] testing only on the left side. Tone and bulk of muscles normal. Gait walks with her walker. Appears to have mild left hemiparetic gait On general examination, there is no carotid bruit or murmur, S1-S2 audible. Abdomen is soft nontender. Bowel sounds present, no organomegaly. Chest is clear. Peripheral pulses are present. No edema. - Labs CBC & Chem 7: 09/06/21 11:24 09/06/21 11:24 Labs: Abnormal Lab Results - Last 24 Hours (Table) 09/09/21 09/09/21 09/09/21 Range/Units 11:26 17:09 21:24 POC Glucose (mg/dL) 119 H 167 H 199 H (75-99) mg/dL 09/10/21 Range/Units 07:25 POC Glucose (mg/dL) 123 H (75-99) mg/dL Assessment and Plan Assessment: * MS exacerbation, presenting with * Relapsing remitting MS, currently not on any disease modifying agent since 2014. 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 After 5 days, patient can be placed on prednisone 60 mg daily for 7 days and then decrease by 10 mg every 2 days until off. * Patient to undergo evaluation by physical medicine and rehab for possible inpatient rehab. * Patient's vitamin B12 is 371 on 09/07/2021. Continue B12 500 g orally daily. * Folic acid borderline 6.3. We will start folic acid 1 mg daily. * I will review MRI of the brain with the radiologist in the morning.
[2021-09-10 11:57] LABS: Glucose,Whole Blood 146 mg/dL (75-99)
[2021-09-10] MEDS: IBUPROFEN 400 MG TAB PO PRN ×2 (12:23→21:08)
[2021-09-10] MEDS: FOLIC ACID 1 MG TAB PO SCH (12:23)
--- NOTE | 2021-09-10 12:57 | P.PN ---
Subjective This is a pleasant 40 years old female with past medical history of multiple sclerosis, rheumatoid arthritis, optic neuritis, trauma and anxiety. Presents because of left sided weakness both leg and arm for about a week similar to her previous attacks of MS, multiple sclerosis. Today also she developed some blurriness in her left eye but no painful eye movement, no headache but she thinks she is a bit confused although she is oriented to time, place and person and she has insight into her illness she denies any chest pain, dyspnea, no change in urine or bowel habits. No fever. She denies alcohol or illicit drugs. Labs including CBC, BMP, INR and liver enzymes are unremarkable. Urine analysis is no suspicious of infection. Old CT on 03/[address] of the head and neck: No acute intracranial process, no acute cervical spine fracture. She has acute comminuted minimally displaced nasal bridge fracture extending into the anterior septum with perhaps slightly more prominent right nasal septal deviation. : Patient was started on steroids 09/07/2021 She awakened alert, no headache still complaining from left hemiparesis in her left arm and leg with blurred vision male in the left eye, no other new neurological deficits. MRI of the brain and cervical spine showing cervical lymphadenopathy Numerous white matter lesions consistent with demyelinating disease also involving the corpus callosum. There is a lesion in the left anterior latoya. No evidence of demyelinating disease of the cervical spine. Mild posterior disc bulging at C5-C6. No spinal stenosis Small right parietal cortical lesion consistent with an infarct Patient was restarted on Solu-Medrol 1000 mg daily per neurologist. 09/08/2021 Patient states no improvement in her left hemiparesis and left blurred vision and actually she was going to the restroom by herself without asking help when she fell and bumped her head. Because of these were going to put her on a neuro check and we will hold off any NSAIDs for 24 hours to make sure there is no bleeding She still remains on IV sodium Medrol 1000 mg daily Neurology on the case Glucose is controlled B12 is 371, we are going to start replacement therapy 09/09/2021 Patient reports improvement in her vision and left arm partially, but not in the leg. No other new complaints per patient No chest pain or dyspnea or change in urine or bowel habits. No fever. Hemodynamically stable. She remains on IV Solu-Medrol for her MS exacerbation, Vitamin B12 replacement is added Neurologist on the case Today I told the patient the need for follow-up with surgery and hematology/oncology as an outpatient in 1 week after discharge for her cervical lymphadenopathy and she agrees 09/10/2021 Patient reports improvement in her left upper and lower extremity weakness and to lesser extent left blurred vision however not complete resolution. Patient could use a walker and worked to the restroom as she states today. It has been evaluated by Dr. Song and found not a candidate for inpatient rehab, we don't consult social media editor to see if she can qualify for subacute rehab, patient herself was to go to rehab if she can per her insurance. She denies any other symptoms Patient aware of the need for follow-up with surgery and hematology/oncology upon discharge for her cervical lymphadenopathy, risks including but not limited to cancer explained Per neurology service she finish her IV Solu Medrol today and she can switch to prednisone 60 mg from tomorrow with a taper. Objective - Vital Signs Vital signs: Vital Signs Temp 97.9 F 09/10/21 07:21 Pulse 64 09/10/21 10:41 Resp 18 09/10/21 10:41 BP 134/72 09/10/21 07:21 Pulse Ox 96 09/10/21 07:21 Intake & Output 09/09/21 09/10/21 09/10/21 18:59 06:59 18:59 Intake Total 730 500 Balance 730 500 Intake: Intake, IV Titration 250 Amount methylPREDNISolone SOD 250 SUCC 1,000 mg In Sodium Chloride 0.9% 250 ml @ 250 mls/hr IVPB DAILY [facility] Rx#:[id number] Oral 480 500 Other: Voiding Method Toilet Toilet # Voids 2 2 - Exam -GENERAL: The patient is alert and oriented x3, not in any acute distress. Obese HEENT: Pupils are round and equally reacting to light. EOMI. No scleral icterus. No conjunctival pallor. Normocephalic, atraumatic. No pharyngeal erythema. No thyromegaly. CARDIOVASCULAR: S1 and S2 present. No murmurs, rubs, or gallops. PULMONARY: Chest is clear to auscultation, no wheezing or crackles. ABDOMEN: Soft, nontender, nondistended, normoactive bowel sounds. No palpable organomegaly. MUSCULOSKELETAL: No joint swelling or deformity. EXTREMITIES: No cyanosis, clubbing, or pedal edema. -NEUROLOGICAL: Cranial nerves are grossly intact. Mild left-sided hemiparesis involving both left leg and arm, strength right side is 5/5. Sensation intact. Meningeal signs are absent. SKIN: No rashes. no petechiae. - Labs CBC & Chem 7: 09/06/21 11:24 09/06/21 11:24 Labs: Abnormal Lab Results - Last 24 Hours (Table) 09/09/21 09/09/21 09/09/21 Range/Units 11:26 17:09 21:24 POC Glucose (mg/dL) 119 H 167 H 199 H (75-99) mg/dL 09/10/21 Range/Units 07:25 POC Glucose (mg/dL) 123 H (75-99) mg/dL Assessment and Plan Assessment: Next multiple sclerosis exacerbation with Left leg weakness and left side blurred vision , with evidence of demyelinating disease on MRI Cervical lymphadenopathy, patient informed and she agrees for outpatient follow- up Possible small right parietal cortical lesion consistent with an infarct Borderline B12 History of rheumatoid arthritis History of anxiety and trauma. Plan: This is a pleasant 40 years old female who presents with MS exacerbation Continue with prednisone per neurology recommendation after finishing 5 days of total IV steroids. 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 Continue same treatment. Continue with symptomatic treatment. Resume home medication. Monitor lytes and vitals. DVT and GI prophylaxis. Further recommendations depends on the clinical course of the patient DVT prophylaxis: Subcutaneous heparin GI Prophylaxis: Pepcid PT/OT: Recommended inpatient rehab but she does not qualify. Next we will see if she qualifies for rehab Versus home health care Prognosis is guarded
[2021-09-10 16:44] LABS: Glucose,Whole Blood 154 mg/dL (75-99)
[2021-09-10] MEDS: ASPIRIN 325 MG TAB PO SCH (21:08)
[2021-09-10] MEDS: CYCLOBENZAPRINE 10 MG TAB PO SCH (21:08)
[2021-09-10] MEDS: traZODone HCL 100 MG TAB PO SCH (21:08)
[2021-09-10 21:49] LABS: Glucose,Whole Blood 163 mg/dL (75-99)
[2021-09-11] MEDS: INSULIN ASPART (NovoLOG) 100 UNIT/ML VIAL SQ SCH ×5 (02:28→23:12)
[2021-09-11 07:21] LABS: Glucose,Whole Blood 106 mg/dL (75-99)
[2021-09-11] MEDS: CITALOPRAM HYDROBROMIDE 20 MG TAB PO SCH (08:51)
[2021-09-11] MEDS: ASPIRIN 325 MG TAB PO SCH (08:51)
[2021-09-11] MEDS: predniSONE 20 MG TAB PO SCH (08:51)
[2021-09-11] MEDS: CYANOCOBALAMIN 500 MCG TAB PO SCH (08:51)
[2021-09-11] MEDS: HEPARIN SODIUM,PORCINE/PF 5,000 UNIT/0.5 ML SYRINGE SQ SCH ×2 (08:51→20:08)
[2021-09-11] MEDS: FOLIC ACID 1 MG TAB PO SCH (08:51)
[2021-09-11] MEDS: FAMOTIDINE 20 MG TAB PO SCH ×2 (08:52→20:09)
--- NOTE | 2021-09-11 10:53 | P.PN ---
Subjective Progress Note Date: 09/10/21 09/10/2021: Patient states she is feeling much better. Patient mentions that her current symptoms started on , 09/05/2021 with seeing spots of color in her vision and then she started tripping on the left side. She has to hold onto the wall. Symptoms continued to get worse therefore she came to the hospital. 09/09/2021: Patient was initially seen by Dr. Joshua Velásquez, then followed up by Dr. Funes over the weekend. Please refer to his note for details. I started service today. Patient has MS exacerbation. Today is day #4 out of 5 of her high-dose steroids. Patient is tolerating Solu-Medrol well. Patient states that she was diagnosed with MS in 2003. She was at first placed on Avonex, but had side effects. Then she started Copaxone. She stopped Copaxone in 2014 and has not tried any other disease modifying medication. Her last exacerbation was in 2014. Patient has followed up with Dr. Cardoso at [facility]. MRI of the brain revealed numerous white matter lesions consistent with demyelinating disease, also involving the corpus callosum. There is lesion in the left anterior latoya. No evidence of demyelinating disease of the cervical spine. Mild posterior disc bulging at C5 6. No spinal stenosis. Small right parietal cortical lesion consistent with an infarct. Objective - Vital Signs Vital signs: Vital Signs Temp 97.6 F 09/11/21 06:42 Pulse 71 09/11/21 07:32 Resp 16 09/11/21 07:32 BP 144/87 09/11/21 06:42 Pulse Ox 96 09/11/21 06:42 Intake & Output 09/10/21 09/11/21 09/11/21 18:59 06:59 18:59 Intake Total 444 Balance 444 Intake: Oral 444 Other: Voiding Method Toilet Toilet # Voids 2 2 - Exam Patient is a young female, very pleasant in no acute distress. Patient is alert awake oriented to time place and person. Speech and language functions are normal. Attention, concentration and fund of knowledge is adequate. No aphasia or dysarthria. On cranial examination, pupils are equal, round and reacting to light, visual verduzco are full on confrontation, extraocular muscles are intact with no nystagmus. Face is symmetric, tongue protrudes to the midline. Palatal elevation and sensation normal, hearing and shoulder shrug normal, facial sensation normal. Shoulder shrug normal. On muscle strength testing, there is no pronator drift and the strength is normal in arms and legs distally and proximally, except left deltoid is 5-and left hip flexion 4, where is it normal on the right. Deep tendon reflexes are 2+ to 3 in the bilateral upper limbs, 3 at both knees, 2+ at the right ankle 3 on the left. Patient's plantar is downgoing on the right, but up on the left with sustained clonus. Sensory to touch is less involving the left arm and leg as compared to right. Cerebellar function showed improved ataxia for lsqhpz-zp-[id number], and efzv-xt-lgot testing only on the left side (as compared to yesterday). Tone and bulk of muscles normal. Gait deferred today. On general examination, there is no carotid bruit or murmur, S1-S2 audible. Abdomen is soft nontender. Bowel sounds present, no organomegaly. Chest is clear. Peripheral pulses are present. No edema. - Labs CBC & Chem 7: 09/06/21 11:24 09/06/21 11:24 Labs: Abnormal Lab Results - Last 24 Hours (Table) 09/10/21 09/10/21 09/10/21 Range/Units 11:53 16:41 21:47 POC Glucose (mg/dL) 146 H 154 H 163 H (75-99) mg/dL 09/11/21 Range/Units 07:20 POC Glucose (mg/dL) 106 H (75-99) mg/dL Assessment and Plan Assessment: * MS exacerbation, presenting with visual disturbance and left-sided weakness, ataxia * Relapsing remitting MS, currently not on any disease modifying agent since 2014. * Multiple sclerosis (Diagnosed in 2003) * History of hypercoagulable state. 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 Patient smoked 1 pack every 3 days (/3 PPD) since age 15, (x 25 years), quit 04/18/2021. Plan: * Patient has completed Solu-Medrol 1 g IVPB daily for total of 5 days as of today. Patient to be started on prednisone 60 mg daily for 7 days and then decrease by 10 mg every 2 days until off. * Patient's vitamin B12 is 371 on 09/07/2021. Continue B12 500 g orally daily. * Folic acid borderline 6.3. We will start folic acid 1 mg daily. * I reviewed MRI of the brain with and without contrast with Dr. Huang. Patient's lesion in the right corpus callosum and periventricular region on t he right appears to have significantly bright signal on the DWI as well as mild peripheral abnormal signal in the ADC mapping as well. This suggests some degree of ischemia. However the lesion does not follow a single vascular territory (as it involves the thalamus and posterior limb of internal c apsule), therefore probably is not in acute infarction, and probably appears intense demyelination with abnormal signal on DWI. * I will start patient on aspirin 325 mg daily for now. Patient states she has history of hypercoagulable state. Patient was on Xarelto in the past. Currently not on any anticoagulants. I would recommend hematology consultation. * Continue Pepcid 20 mg twice a day for gastric ulcer prophylaxis. * Patient recommended complete tobacco cessation. * Patient was evaluated by physical medicine and rehab, and patient to be discharged to home with home care. * Patient strongly recommended to follow up with her neurologist Dr. Cardoso in 2-3 weeks after discharge. She could be a candidate for Tysabri or Ocrevus. Time with Patient: Greater than 30 (Spent over 20 minutes reviewing MRI personally and then with the radiologist besides the time spent above in coordinating care as above.)
[2021-09-11 12:03] LABS: Glucose,Whole Blood 137 mg/dL (75-99)
--- NOTE | 2021-09-11 14:01 | P.PN ---
Subjective This is a pleasant 40 years old female with past medical history of multiple sclerosis, rheumatoid arthritis, optic neuritis, trauma and anxiety. Presents because of left sided weakness both leg and arm for about a week similar to her previous attacks of MS, multiple sclerosis. Today also she developed some blurriness in her left eye but no painful eye movement, no headache but she thinks she is a bit confused although she is oriented to time, place and person and she has insight into her illness she denies any chest pain, dyspnea, no change in urine or bowel habits. No fever. She denies alcohol or illicit drugs. Labs including CBC, BMP, INR and liver enzymes are unremarkable. Urine analysis is no suspicious of infection. Old CT on 03/[address] of the head and neck: No acute intracranial process, no acute cervical spine fracture. She has acute comminuted minimally displaced nasal bridge fracture extending into the anterior septum with perhaps slightly more prominent right nasal septal deviation. : Patient was started on steroids 09/07/2021 She awakened alert, no headache still complaining from left hemiparesis in her left arm and leg with blurred vision male in the left eye, no other new neurological deficits. MRI of the brain and cervical spine showing cervical lymphadenopathy Numerous white matter lesions consistent with demyelinating disease also involving the corpus callosum. There is a lesion in the left anterior latoya. No evidence of demyelinating disease of the cervical spine. Mild posterior disc bulging at C5-C6. No spinal stenosis Small right parietal cortical lesion consistent with an infarct Patient was restarted on Solu-Medrol 1000 mg daily per neurologist. 09/08/2021 Patient states no improvement in her left hemiparesis and left blurred vision and actually she was going to the restroom by herself without asking help when she fell and bumped her head. Because of these were going to put her on a neuro check and we will hold off any NSAIDs for 24 hours to make sure there is no bleeding She still remains on IV sodium Medrol 1000 mg daily Neurology on the case Glucose is controlled B12 is 371, we are going to start replacement therapy 09/09/2021 Patient reports improvement in her vision and left arm partially, but not in the leg. No other new complaints per patient No chest pain or dyspnea or change in urine or bowel habits. No fever. Hemodynamically stable. She remains on IV Solu-Medrol for her MS exacerbation, Vitamin B12 replacement is added Neurologist on the case Today I told the patient the need for follow-up with surgery and hematology/oncology as an outpatient in 1 week after discharge for her cervical lymphadenopathy and she agrees 09/10/2021 Patient reports improvement in her left upper and lower extremity weakness and to lesser extent left blurred vision however not complete resolution. Patient could use a walker and worked to the restroom as she states today. It has been evaluated by Dr. Song and found not a candidate for inpatient rehab, we don't consult social sciences chair to see if she can qualify for subacute rehab, patient herself was to go to rehab if she can per her insurance. She denies any other symptoms Patient aware of the need for follow-up with surgery and hematology/oncology upon discharge for her cervical lymphadenopathy, risks including but not limited to cancer explained Per neurology service she finish her IV Solu Medrol today and she can switch to prednisone 60 mg from tomorrow with a taper. 09/11/2011 Patient reports gradual and slow improvement in her left leg and arm weakness and her left eye Vision, however she looks a stronger when I examined her both left leg and arm. Patient did not qualify for inpatient rehab and extended she has to go home with home care which is ordered. Patient currently kept on prednisone 60 mg per neurologist recommendation as well as vitamin B12, folic acid Patient also started on aspirin 325 mg by neurologist, although the CAT scan showing possible stroke it is suspicious. No need for any workup for now. Consult with hematology team As recommended by Neurologist for possible hyp ercoagulable state in the past. Also for the patient has cervical lymphadenopathy Objective - Vital Signs Vital signs: Vital Signs Temp 97.6 F 09/11/21 06:42 Pulse 71 09/11/21 07:32 Resp 16 09/11/21 07:32 BP 144/87 09/11/21 06:42 Pulse Ox 96 09/11/21 06:42 Intake & Output 09/10/21 09/11/21 09/11/21 18:59 06:59 18:59 Intake Total 444 Balance 444 Intake: Oral 444 Other: Voiding Method Toilet Toilet # Voids 2 2 - Exam -GENERAL: The patient is alert and oriented x3, not in any acute distress. Obese HEENT: Pupils are round and equally reacting to light. EOMI. No scleral icterus. No conjunctival pallor. Normocephalic, atraumatic. No pharyngeal erythema. No thyromegaly. CARDIOVASCULAR: S1 and S2 present. No murmurs, rubs, or gallops. PULMONARY: Chest is clear to auscultation, no wheezing or crackles. ABDOMEN: Soft, nontender, nondistended, normoactive bowel sounds. No palpable organomegaly. MUSCULOSKELETAL: No joint swelling or deformity. EXTREMITIES: No cyanosis, clubbing, or pedal edema. -NEUROLOGICAL: Cranial nerves are grossly intact. Mild left-sided hemiparesis involving both left leg and arm, strength right side is 5/5. Sensation intact. Meningeal signs are absent. Her weakness is improving gradually SKIN: No rashes. no petechiae. - Labs CBC & Chem 7: 09/06/21 11:24 09/06/21 11:24 Labs: Abnormal Lab Results - Last 24 Hours (Table) 09/10/21 09/10/21 09/11/21 Range/Units 16:41 21:47 07:20 POC Glucose (mg/dL) 154 H 163 H 106 H (75-99) mg/dL 09/11/21 Range/Units 12:01 POC Glucose (mg/dL) 137 H (75-99) mg/dL Assessment and Plan Assessment: Next multiple sclerosis exacerbation with Left leg weakness and left side blurred vision , with evidence of demyelinating disease on MRI Cervical lymphadenopathy, patient informed and she agrees for outpatient follow- up Possible small right parietal cortical lesion consistent with an infarct Borderline B12 and folic acid, being replaced History of rheumatoid arthritis History of anxiety and trauma. Plan: This is a pleasant 40 years old female who presents with MS exacerbation Continue with prednisone per neurology recommendation after finishing 5 days of total IV steroids. neurologist on the case Continue with B12 replacement therapy and folic acid Patient does not qualify for inpatient rehab, she will go home with home health care Consult hematology/oncology for her cervical lymphadenopathy Labs and medication were reviewed.. Continue same treatment. Continue with symptomatic treatment. Resume home medication. Monitor lytes and vitals. DVT and GI prophylaxis. Further recommendations depends on the clinical course of the patient DVT prophylaxis: Subcutaneous heparin GI Prophylaxis: Pepcid PT/OT: Recommended inpatient rehab but she does not qualify. Next we will see if she qualifies for rehab Versus home health care Prognosis is guarded
[2021-09-11] MEDS: ACETAMINOPHEN TAB 325 MG TAB PO PRN (14:02)
[2021-09-11 17:12] LABS: Glucose,Whole Blood 101 mg/dL (75-99)
[2021-09-11] MEDS: traZODone HCL 100 MG TAB PO SCH (20:09)
[2021-09-11] MEDS: IBUPROFEN 400 MG TAB PO PRN (20:09)
[2021-09-11] MEDS: CYCLOBENZAPRINE 10 MG TAB PO SCH (20:09)
[2021-09-11] MEDS ORDERED: ATORVASTATIN 40 MG TAB PO SCH (21:00)
[2021-09-11 22:03] LABS: Glucose,Whole Blood 101 mg/dL (75-99)
--- NOTE | 2021-09-12 00:46 | P.PN ---
Subjective Progress Note Date: 09/11/21 09/11/2021: Patient is feeling better. Complains of dysphagia. Getting PT and OT. Her arms and legs are getting better. Walking is better, using walker. 09/10/2021: Patient states she is feeling much better. Patient mentions that her current symptoms started on , 09/05/2021 with seeing spots of color in her vision and then she started tripping on the left side. She has to hold onto the wall. Symptoms continued to get worse therefore she came to the hospital. 09/09/2021: Patient was initially seen by Dr. Joshua Velásquez, then followed up by Dr. Funes over the weekend. Please refer to his note for details. I started service today. Patient has MS exacerbation. Today is day #4 out of 5 of her high-dose steroids. Patient is tolerating Solu-Medrol well. Patient states that she was diagnosed with MS in 2003. She was at first placed on Avonex, but had side effects. Then she started Copaxone. She stopped Copaxone in 2014 and has not tried any other disease modifying medication. Her last exacerbation was in 2014. Patient has followed up with Dr. Cardoso at [facility]. MRI of the brain revealed numerous white matter lesions consistent with demyelinating disease, also involving the corpus callosum. There is lesion in the left anterior latoya. No evidence of demyelinating disease of the cervical spine. Mild posterior disc bulging at C5 6. No spinal stenosis. Small right parietal cortical lesion consistent with an infarct. Objective - Vital Signs Vital signs: Vital Signs Temp 97.8 F 09/11/21 14:00 Pulse 93 09/11/21 14:00 Resp 20 09/11/21 14:00 BP 153/77 09/11/21 14:00 Pulse Ox 94 L 09/11/21 14:00 Intake & Output 09/11/21 09/11/21 09/12/21 06:59 18:59 06:59 Other: Voiding Method Toilet # Voids 2 - Exam Patient is a young female, very pleasant in no acute distress. Patient is alert awake oriented to time place and person. Speech and language functions are normal. Attention, concentration and fund of knowledge is adequate. No aphasia or dysarthria. On cranial examination, pupils are equal, round and reacting to light, visual verduzco are full on confrontation, extraocular muscles are intact with no nystagmus. Face is symmetric, tongue protrudes to the midline. Palatal elevation and sensation normal, hearing and shoulder shrug normal, facial sensation normal. Shoulder shrug normal. On muscle strength testing, there is no pronator drift and the strength is normal in arms and legs distally and proximally, except left hip flexion 5-. Her deltoids are normal now. Deep tendon reflexes are 2+ to 3 in the bilateral upper limbs, 3 at both knees, 2+ at the right ankle 3 on the left. Patient's plantar is downgoing on the right, but up on the left with sustained clonus. Sensory to touch is less involving the left arm as compared to right. Equal in the LE Cerebellar function showed improved ataxia for [id number], and [id number]-[id number] testing only on the left side (as compared to yesterday). Tone and bulk of muscles normal. Gait walking with walker today. On general examination, there is no carotid bruit or murmur, S1-S2 audible. Abdomen is soft nontender. Bowel sounds present, no organomegaly. Chest is clear. Peripheral pulses are present. No edema. - Labs CBC & Chem 7: 09/06/21 11:24 09/06/21 11:24 Labs: Abnormal Lab Results - Last 24 Hours (Table) 09/11/21 09/11/21 09/11/21 Range/Units 07:20 12:01 17:11 POC Glucose (mg/dL) 106 H 137 H 101 H (75-99) mg/dL 09/11/21 Range/Units 22:02 POC Glucose (mg/dL) 101 H (75-99) mg/dL Assessment and Plan Assessment: * MS exacerbation, presenting with visual disturbance and left-sided weakness, ataxia * Relapsing remitting MS, currently not on any disease modifying agent since . * Multiple sclerosis (Diagnosed in 2003) * History of hypercoagulable state. Patient states has a protein deficiency. Records revealed positive lupus anticoagulants on 06/28/2019. 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 Patient smoked 1 pack every 3 days (07/22 PPD) since age 15, (x 25 years), quit 04/18/2021. Plan: * Patient has completed Solu-Medrol 1 g IVPB daily for total of 5 days as of today. Patient to be started on prednisone 60 mg daily for 7 days and then decrease by 10 mg every 2 days until off. * Patient's vitamin B12 is 371 on 09/07/2021. Continue B12 500 g orally daily. * Folic acid borderline 6.3. We will start folic acid 1 mg daily. * I reviewed MRI of the brain with and without contrast with Dr. Huang. Patient's lesion in the right corpus callosum and periventricular region on the right appears to have significantly bright signal on the DWI as well as mild peripheral abnormal signal in the ADC mapping as well. This suggests some degree of ischemia. However the lesion does not follow a single vascular territory (as it involves the thalamus and posterior limb of internal capsule), therefore probably is not in acute infarction, and probably appears intense demyelination with abnormal signal on DWI. * I will start patient on aspirin 325 mg daily for now. * Patient states she has history of hypercoagulable state. Patient was on Xarelto in the past. Currently not on any anticoagulants. Recommend hematology consultation. * Lipids with Cholesterol 271, LDL 201, HDL 57, TG 59. Start Lipitor 40 mg daily. * Speech therapy for dysphagia. * Continue Pepcid 20 mg twice a day for gastric ulcer prophylaxis. * Patient recommended complete tobacco cessation. * Patient was evaluated by physical medicine and rehab, and patient to be discharged to home with home care. * Patient strongly recommended to follow up with her neurologist Dr. Cardoso in 2-3 weeks after discharge. She could be a candidate for Tysabri or Ocrevus.
[2021-09-12 07:08] LABS: Glucose,Whole Blood 93 mg/dL (75-99)
[2021-09-12] MEDS: INSULIN ASPART (NovoLOG) 100 UNIT/ML VIAL SQ SCH ×3 (07:18→17:32)
[2021-09-12 07:36] VITALS: RESP 18
[2021-09-12] MEDS: HEPARIN SODIUM,PORCINE/PF 5,000 UNIT/0.5 ML SYRINGE SQ SCH (09:56)
[2021-09-12] MEDS: predniSONE 20 MG TAB PO SCH (09:57)
[2021-09-12] MEDS: ASPIRIN 325 MG TAB PO SCH (09:57)
[2021-09-12] MEDS: FOLIC ACID 1 MG TAB PO SCH (09:57)
[2021-09-12] MEDS: FAMOTIDINE 20 MG TAB PO SCH (09:58)
[2021-09-12] MEDS: CYANOCOBALAMIN 500 MCG TAB PO SCH (09:58)
[2021-09-12] MEDS: CITALOPRAM HYDROBROMIDE 20 MG TAB PO SCH (09:58)
[2021-09-12 11:40] LABS: Glucose,Whole Blood 91 mg/dL (75-99)
[2021-09-12 13:44] VITALS: BP 137/82; PULSE 97; TEMP 98.4
--- NOTE | 2021-09-12 15:45 | P.CONS ---
History of Present Illness - Reason for Consult Consult date: 09/12/21 Hypercoag state, cervical carcinoma Requesting physician: Jean E Sheet - Chief Complaint MS flair-MS weakness - History of Present Illness Pt seen in consult 2019-was never seen in ofc for f/u. The patient is a 38-year-old white female, with a complicated past medical h istory. She had given a history of pulmonary embolus some years ago, and possible hypercoagulable state due to which consult was placed. States that the clot occurred possibly about 5 years ago (2013), and she was diagnosed at [facility]. She apparently had a hypercoagulable workup and told by her PCP that she had " proficiency S " deficiency. She states that the source of the pulmonary embolus was not found. She denied seeing a [employer]. She was placed on anticoagulation which she believes was Xarelto. According to her, she took treatment for several months but, then started forgetting to take it and ultimately stopped it. She has had no evidence of clots before or after. She denied any family history. She also denied any provoking factors. Her records were reviewed in the EMR. The patient did have a hematology consult with Dr. Mccarthy in 2014. She had been admitted with some shortness of breath and chest tightness. CT pelvis a possibility of a small right lower lobe embolus a possible adjacent small pulmonary infarct. However the study was not definiti ve, and artifact was not ruled out, d-dimer was normal. US of the extremities, both upper and lower were negative. The patient was also seen by Pulmonary, possibility the clot was questionable, however as it could not be ruled out definitively, and correlation was recommended. Hypercoagulable workup, revealed protein C and S deficiency initially, lupus anticoagulant positive. However, these findings can be falsely positive in the setting of an acute clot, and ongoing anticoagulation respectively. Review of the records at [facility] indicated that the patient had repeat protein C and S testing done in 2015 by her PCP, both were within normal limits. She does not have a factor V Leiden mutation. We are asked to see pt for LAD on CT neck, not palpable, pt denies constitu tional symptoms. Review of Systems 10 point ROS is neg except as stated in HPI Past Medical History Past Medical History: Blood Disorder, Eye Disorder, Neurologic Disorder, Pulmonary Embolus (PE), Rheumatoid Arthritis (RA), Vascular Disorder Additional Past Medical History / Comment(s): MS, optic neuritis, proficiency C & S disorder, PE/pt cannot recall laterallity, aortic calcification, chin abscess/sepsis, UTI, chronic low back pain/bulging discs, possible ventral hernia, past meth abuse/clean for 7 months. History of Any Multi-Drug Resistant Organisms: MRSA Year Discovered:: 06/21/19 [facility] MDRO Source:: Chin Past Surgical History: Appendectomy Additional Past Surgical History / Comment(s): ectopic (2/ L fallopian tube rupture with surgery, R labia abscess/I&D Past Anesthesia/Blood Transfusion Reactions: No Reported Reaction Past Psychological History: Anxiety Additional Psychological History / Comment(s): Pt currently staying at [facility] d/t was homeless and at higher risk to relapse with meth addiction. Past rehab for meth addiction/clean for [address] Pt [address] not [address], she gets to [facility] by bus or her sister. She is otherwise independent. Smoking Status: Former smoker Past Alcohol Use History: None Reported Additional Past Alcohol Use History / Comment(s): Pt started smoking in 1997 and quit 3 months ago. Past Drug Use History: Methamphetamine Additional Drug Use History / Comment(s): Pt has hx of meth addiction with [facility]. She has not used meth in 7 months. - Past Family History Father Family Medical History: No Reported History Mother History Unknown: Yes Medications and Allergies Home Medications Medication Instructions Recorded Confirmed Type Ibuprofen [Motrin Ib] 800 mg PO Q8H PRN 06/23/19 09/06/21 History Acetaminophen Tab [Tylenol] 650 mg PO Q4-6H PRN 02/17/20 09/06/21 History Citalopram Hydrobromide [CeleXA] 20 mg PO DAILY 09/06/21 09/06/21 History traZODone HCL [Desyrel] 100 mg PO HS 09/06/21 09/06/21 History Aspirin 325 mg PO DAILY #30 tab 09/11/21 Rx Cyanocobalamin [Vitamin B-12] 500 mcg PO DAILY #30 tab 09/11/21 Rx Cyclobenzaprine [Flexeril] 10 mg PO HS #30 tab 09/11/21 Rx Famotidine [Pepcid] 20 mg PO BID #60 tab 09/11/21 Rx Folic Acid 1 mg PO DAILY #30 tab 09/11/21 Rx predniSONE 10 mg PO DIRECTED #60 tab 09/11/21 Rx Allergies Allergy/AdvReac Type Severity Reaction Status Date / Time vancomycin Allergy Severe Rash/Hives, Verified 09/06/21 12:49 itching, burning Physical Exam Vitals: Vital Signs Temp Pulse Resp BP BP Pulse Ox 09/12/21 07:34 98.1 F 87 18 127/86 97 09/12/21 07:23 97.6 F 71 19 130/80 95 09/12/21 02:07 98.0 F 88 17 120/73 94 L 09/11/21 19:18 98.3 F 79 16 131/77 94 L 09/11/21 14:00 97.8 F 93 20 153/77 94 L Intake and Output 09/11/21 09/12/21 09/12/21 22:59 06:59 14:59 Other: # Voids 2 - Constitutional General appearance: cooperative, no acute distress, obese - EENT Eyes: anicteric sclerae, EOMI ENT: hearing grossly normal, normal oropharynx - Neck Neck: no lymphadenopathy (unable to palpate any LAD ) - Respiratory Respiratory: bilateral: CTA - Cardiovascular Rhythm: regular Heart sounds: normal: S1, S2 Abnormal Heart Sounds: no systolic murmur, no diastolic murmur, no rub, no S3 Gallop, no S4 Gallop, no click, no other leg Peripheral Edema: bilateral: None - Gastrointestinal General gastrointestinal: no absent bowel sounds, no decreased bowel sounds, no distended, no hepatomegaly, no hyperactive bowel sounds, normal bowel sounds, no organomegaly, no rigid, no scaphoid, soft, no splenomegaly, no tenderness, no umbilical hernia, no ventral hernia - Neurologic Neurologic: focal deficits - Musculoskeletal sore muscles to palpation of the neck Musculoskeletal: left sided weakness - Psychiatric Psychiatric: A&O x's 3, appropriate affect, intact judgment & insight Results CBC & Chem 7: 09/06/21 11:24 09/06/21 11:24 Labs: Abnormal Lab Results - Last 24 Hours (Table) 09/11/21 09/11/21 09/11/21 Range/Units 12:01 17:11 22:02 POC Glucose (mg/dL) 137 H 101 H 101 H (75-99) mg/dL MRI - head: report reviewed (cervical MRI) Assessment and Plan (1) Lymphadenopathy of head and neck region Narrative/Plan: Unable to palpate LAD described on imaging. No B symptoms to report. LAD lab work up ordered. Pt to f/u for results in ofc in 3-4 weeks. Will plan for f/u scan in 3 mo if work up is negative Current Visit: Yes Status: Acute Priority: Medium Code(s): R59.0 - LOCALIZED ENLARGED LYMPH NODES SNOMED Code(s): 854949721 Plan: Doctor attests: I performed a history and physical examination of this patient, developed impression and plan of care, discussed with dictator. I agree with dictators note, documented as a scribe.
[2021-09-12 16:33] LABS: LDH 563 U/L (313-618)
[2021-09-12 17:04] LABS: Glucose,Whole Blood 144 mg/dL (75-99)
--- NOTE | 2021-09-12 22:21 | P.DS ---
Providers Date of admission: 09/09/21 08:24 Attending physician: Jean Bassett MD Consults: 09/06/21 13:04 Consult Physician Urgent Consulting Provider: Joshua Velásquez Consult Reason/Comments: left hemiparesis , MS exacerbation Do you want consulting provider notified?: Yes 09/09/21 11:12 Consult Physician Routine Consulting Provider: Eron Brewer Consult Reason/Comments: Possible IPR Do you want consulting provider notified?: Yes 09/11/21 13:45 Consult Physician Urgent Consulting Provider: Ricky Mccarthy Consult Reason/Comments: h/o hypercoagulable state + cervical LAP Do you want consulting provider notified?: Yes Primary care physician: [facility] Course: Diagnoses: Next multiple sclerosis exacerbation with Left leg weakness and left side blurred vision , with evidence of demyelinating disease on MRI. Significantly improved upon discharge Cervical lymphadenopathy, evaluated by public health internship who cleared her for discharge. patient informed and she agrees for outpatient follow-up Possible small right parietal cortical lesion consistent with an infarct. Patient is a started on aspirin Borderline B12 and folic acid, being replaced History of rheumatoid arthritis History of anxiety and trauma. Hospital course: This is a pleasant 40 years old female with past medical history of multiple sclerosis, rheumatoid arthritis, optic neuritis, trauma and anxiety. Presents because of left sided weakness both leg and arm for about a week similar to her previous attacks of MS, multiple sclerosis. On admission also she developed some blurriness in her left eye but no painful eye movement, ((MRI of the brain and cervical spine showing cervical lymphadenopathy Numerous white matter lesions consistent with demyelinating disease also involving the corpus callosum. There is a lesion in the left anterior latoya. No evidence of demyelinating disease of the cervical spine. Mild posterior disc bulging at C5- C6. No spinal stenosis Small right parietal cortical lesion consistent with an infarct)) patient has been evaluated and monitored closely by neurologist Patient was restarted on Solu-Medrol 1000 mg daily per neurologist 5 days. Patient after finishing IV steroids switch to oral prednisone with plan for taper upon discharge. Patient continued to show clinical improvement even with oral steroids. Her left leg and arm weakness significantly improved although no t completely resolved as well as her left eye vision almost resolved as per patient. Patient also started on B12, folate and aspirin per neurologist recommendation Patient did not qualify for rehab so she is going home with home care. Also patient evaluated by public health internship/oncologist for her cervical lymphadenopathy and history of hypercoagulable state. Dr. Mccarthy team ordered some blood test and recommended outpatient follow-up with his office on 10/10, patient informed and she agrees. She was informed to need to follow up on the blood test done today and she told me she is going to go to her appointment with . Patient was cleared for discharge by public health internship/oncologist and the neurologist On the day of discharge she denies any other symptoms, no chest pain or dyspnea, no change in urine or bowel habits. No fever. Problems and management plan were discussed with the patient and he verbalized understanding and acceptance Patient was found stable and can be discharged home however he needs follow-up as an outpatient. Patient was instructed to follow up with PCP Dr. gu at [facility] within one week and patient agrees was informed to follow-up with Dr. Agosto on 10/10 and she agrees and said she will follow up. Also patient was instructed to follow up with her neurologist Dr. Garcia and vomiting and she agrees to: See him within one week, she has a contact informat on license of [facility] and she confirmed to us. Physical exam Gen: patient is a AAOx3, no distress CVS: S1-S2, RRR, no murmur Lungs: B/L CTA, no wheezing Abdomen: soft, no distention, no tenderness, positive bowel sounds Extremity: no leg edema or induration Neurological: Cranial nerves are grossly intact. Left upper extremity and left upper extremity only mildly weak 4+/5, no sensation abnormality. Meningeal sig ns are absent Time spent more than 35 minutes Patient Condition at Discharge: Good Plan - Discharge Summary Discharge Rx Participant: No New Discharge Prescriptions: New Aspirin 325 mg PO DAILY #30 tab Cyclobenzaprine [Flexeril] 10 mg PO HS #30 tab Famotidine [Pepcid] 20 mg PO BID #60 tab predniSONE 10 mg PO DIRECTED #60 tab Folic Acid 1 mg PO DAILY #30 tab Cyanocobalamin [Vitamin B-12] 500 mcg PO DAILY #30 tab Continue Ibuprofen [Motrin Ib] 800 mg PO Q8H PRN PRN Reason: Pain Acetaminophen Tab [Tylenol] 650 mg PO Q4-6H PRN PRN Reason: Pain traZODone HCL [Desyrel] 100 mg PO HS Citalopram Hydrobromide [CeleXA] 20 mg PO DAILY Discharge Medication List Ibuprofen [Motrin Ib] 800 mg PO Q8H PRN 06/23/19 [History] Acetaminophen Tab [Tylenol] 650 mg PO Q4-6H PRN 02/17/20 [History] Citalopram Hydrobromide [CeleXA] 20 mg PO DAILY 09/06/21 [History] traZODone HCL [Desyrel] 100 mg PO HS 09/06/21 [History] Aspirin 325 mg PO DAILY #30 tab 09/11/21 [Rx] Cyanocobalamin [Vitamin B-12] 500 mcg PO DAILY #30 tab 09/11/21 [Rx] Cyclobenzaprine [Flexeril] 10 mg PO HS #30 tab 09/11/21 [Rx] Famotidine [Pepcid] 20 mg PO BID #60 tab 09/11/21 [Rx] Folic Acid 1 mg PO DAILY #30 tab 09/11/21 [Rx] predniSONE 10 mg PO DIRECTED #60 tab 09/11/21 [Rx] Follow up Appointment(s)/Referral(s): Ricky Mccarthy MD [STAFF PHYSICIAN] - 10/10/21 4:15 pm () Dary La MD [Primary Care Provider] - 1-2 days [facility] Visiting Nurse, [NON-STAFF] - 1-2 Days Sidney Garner MD [STAFF PHYSICIAN] - 1 Week (surgeon for your enlarged neck lymph nodes) Activity/Diet/Wound Care/Special Instructions: Low carbohydrate diet 1600 kcal per day Activity is restricted till you see your doctor follow up as directed call your DR with return or worsening of the symptoms that brought you here or any concerns. Discharge Disposition: HOME WITH HOME HEALTH SERVICES
[2021-09-13 01:31] LABS: Rheumatoid Factor, Qnt <10 IU/mL (0-15)
[2021-09-13 04:32] LABS: Protein, Total 6.7 g/dL (6.2-8.2)
[2021-09-13 05:07] LABS: HIV 2 AB Non-Reactive (Non-Reactive); HIV AB P24 Non-Reactive (Non-Reactive); HIV P24 AG Non-Reactive (Non-Reactive)
[2021-09-13 10:47] LABS: Free Kappa Lt Chain Qnt, Serum 1.21 mg/dL (0.33-1.94); Free Lambda Lt Chain Qnt, Seru 1.65 mg/dL (0.57-2.63)
--- NOTE | 2021-09-15 00:25 | P.PN ---
Subjective Progress Note Date: 09/12/21 09/12/2021: Patient feels much better. Patient states that she walked in the hallway using her walker with one assist. Her balance has improved. Denies any new neurological symptoms. The left arm coordination and strength has improved. 09/11/2021: Patient is feeling better. Complains of dysphagia. Getting PT and OT. Her arms and legs are getting better. Walking is better, using walker. 09/10/2021: Patient states she is feeling much better. Patient mentions that her current symptoms started on , 09/05/2021 with seeing spots of color in her vision and then she started tripping on the left side. She has to hold onto the wall. Symptoms continued to get worse therefore she came to the hospital. 09/09/2021: Patient was initially seen by Dr. Joshua Velásquez, then followed up by Dr. Funes over the weekend. Please refer to his note for details. I started service today. Patient has MS exacerbation. Today is day #4 out of 5 of her high-dose steroids. Patient is tolerating Solu-Medrol well. Patient states that she was diagnosed with MS in 2003. She was at first placed on Avonex, but had side effects. Then she started Copaxone. She stopped Copaxone in 2014 and has not tried any other disease modifying medication. Her last exacerbation was in 2014. Patient has followed up with Dr. Cardoso at [facility]. MRI of the brain revealed numerous white matter lesions consistent with demyelinating disease, also involving the corpus callosum. There is lesion in the left anterior latoya. No evidence of demyelinating disease of the cervical spine. Mild posterior disc bulging at C5 6. No spinal stenosis. Small right parietal cortical lesion consistent with an infarct. Objective - Vital Signs Vital signs: Vital Signs Temp 98.4 F 09/12/21 13:42 Pulse 97 09/12/21 13:42 Resp 18 09/12/21 13:42 BP 137/82 09/12/21 13:42 Pulse Ox 97 09/12/21 13:42 - Exam 09/12/2021: Patient's mentation is normal. Detail examination deferred. 09/11/2021: Patient is a young female, very pleasant in no acute distress. Patient is alert awake oriented to time place and person. Speech and language functions are normal. Attention, concentration and fund of knowledge is adequate. No aphasia or dysarthria. On cranial examination, pupils are equal, round and reacting to light, visual verduzco are full on confrontation, extraocular muscles are intact with no nystagmus. Face is symmetric, tongue protrudes to the midline. Palatal elevation and sensation normal, hearing and shoulder shrug normal, facial sensation normal. Shoulder shrug normal. On muscle strength testing, there is no pronator drift and the strength is normal in arms and legs distally and proximally, except left hip flexion 5-. Her deltoids are normal now. Deep tendon reflexes are 2+ to 3 in the bilateral upper limbs, 3 at both knees, 2+ at the right ankle 3 on the left. Patient's plantar is downgoing on the right, but up on the left with sustained clonus. Sensory to touch is less involving the left arm as compared to right. Equal in the LE Cerebellar function showed improved ataxia for [id number], and [id number] testing only on the left side (as compared to yesterday). Tone and bulk of muscles normal. Gait walking with walker today. On general examination, there is no carotid bruit or murmur, S1-S2 audible. Abdomen is soft nontender. Bowel sounds present, no organomegaly. Chest is clear. Peripheral pulses are present. No edema. - Labs CBC & Chem 7: 09/06/21 11:24 09/06/21 11:24 Assessment and Plan Assessment: * Acute MS exacerbation, presenting with visual disturbance and left-sided weakness, ataxia * Relapsing remitting MS, currently not on any disease modifying agent since 2014. * Multiple sclerosis (Diagnosed in 2003) * History of hypercoagulable state. Patient states has a protein deficiency. Records revealed positive lupus anticoagulants on 06/28/2019. * Hyperlipidemia, * History of Bilateral Optic Neuritis * Tobacco use. Patient smoked 1 pack every 3 days (1/3 PPD) since age 15, (x 25 years), quit 04/18/2021. Plan: * Patient has completed Solu-Medrol 1 g IVPB daily for total of 5 days. Patient to be started on prednisone 60 mg daily for 7 days and then decrease by 10 mg every 2 days until off. * Patient's vitamin B12 is 371 on 09/07/2021. Continue B12 500 g orally daily. * Folic acid borderline 6.3. We will start folic acid 1 mg daily. * I reviewed MRI of the brain with and without contrast with Dr. Huang. Lauren ent's lesion in the right corpus callosum and periventricular region on the right appears to have significantly bright signal on the DWI as well as mild peripheral abnormal signal in the ADC mapping as well. This suggests some degree of ischemia. However the lesion does not follow a single vascular territory (as it involves the thalamus and posterior limb of internal capsule), therefore probably is not in acute infarction, and probably appears intense demyelination with abnormal signal on DWI. * Continue aspirin 325 mg daily for now. * Patient states she has history of hypercoagulable state. Patient was on Xarelto in the past. Currently not on any anticoagulants. Hematology input appreciated. Patient will follow up with a residential service technician. * Lipids with Cholesterol 271, LDL 201, HDL 57, TG 59. Start Lipitor 40 mg daily. * Speech therapy cleared patient for any dysphagia. Normal diet.. * Continue Pepcid 20 mg twice a day for gastric ulcer prophylaxis. * Patient recommended complete tobacco cessation. * Patient was evaluated by physical medicine and rehab, and patient to be discharged to home with home care. * Patient strongly recommended to follow up with her neurologist Dr. Cardoso in 2-3 weeks after discharge. She could be a candidate for Tysabri or Ocrevus. * Neurologically clear for discharge.
--- NOTE | 2021-09-16 13:38 | CDI ---
Documentation Clarification Form Date: 09/16/2021 12:39:00 PM From: Sakshi Oneal RN, CCDS Admit Date: 09/09/2021 08:24:00 AM Patient Name: Mónica Rao I Visit Number: [id number] Discharge Date: 09/12/2021 07:20:00 PM ATTENTION: The Clinical Documentation Specialists (CDI) and [facility] Coding Staff appreciate your assistance in clarifying documentation. Please respond to the clarification below the line at the bottom and electronically sign. The CDI & [facility] Coding staff will review the response and follow-up if needed. Please note: Queries are made part of the Legal Health Record. If you have any questions, please contact the author of this message via ITS. Dr. Ricky Mccarthy There is documentation of lupus anticoagulant positive. [ Additional clarification is requested. History/Risk Factors: Pulmonary embolus Clinical Indicators: 40-year-old female with destroy of pulmonary embolus, consult was placed for possible hypercoagulable state with work up. I 09/12 Oncology consult : Hypercoagulable workup, revealed protein C and S deficiency initially, lupus anticoagulant positive. However, these findings can be falsely positive in the setting of an acute clot, and ongoing anticoagulation respectively. Repeat protein S and S testing done in 2015 were both within normal limits. 09/15 Neurology progress notes: Records revealed positive lupus anticoagulants on 06/28/19 Treatment: Asa 325 MG PO Daily Hematology follow up To accurately reflect the patient condition Can you please clarify Lupus anticoagulant positive diagnosis? [ ] Lupus anticoagulant positive is current diagnosis [ ] Lupus anticoagulant positive is a false positive. [ X ] Other, please specify -Diagnosis not definite. Initial testing was done on anticoagulation, which can cause false positive results. Positive result in 07/07, but unable to determine if pt was on anticoagulation at the time. Needs at least 2 successive positive results, ideally at least 9-12 wks apart, without any anticoagulation, to be deemed true positive [ ] Unable to determine (Template Last Revised: September 2020) MTDD
== END 2021-09-12 19:20 | disposition home health service (06) | DRG 59 ==
LOC: EC 10:36 → 6NMEDSUR 12:36 → INTOOBSV 12:36 → 6NMEDSUR 15:06 → OBSVTOIN 09-09 08:24
PROVIDERS: ADMIT Internal Medicine; ATTEND Internal Medicine
DX: G35 Multiple sclerosis (principal); D68.51 Activated protein C resistance; G81.94 Hemiplegia, unspecified affecting left nondominant side; M06.9 Rheumatoid arthritis, unspecified; F15.11 Other stimulant abuse, in remission; I70.0 Atherosclerosis of aorta; Z20.822 Contact with and (suspected) exposure to COVID-19; H53.8 Other visual disturbances; R13.10 Dysphagia, unspecified; R59.0 Localized enlarged lymph nodes; G89.29 Other chronic pain; M54.50 Low back pain, unspecified; E78.5 Hyperlipidemia, unspecified; F41.9 Anxiety disorder, unspecified; E66.3 Overweight; Z68.31 Body mass index [BMI] 31.0-31.9, adult; J34.2 Deviated nasal septum; Z79.899 Other long term (current) drug therapy; Z86.14 Personal history of Methicillin resistant Staphylococcus aureus infection; Z90.49 Acquired absence of other specified parts of digestive tract; Z87.19 Personal history of other diseases of the digestive system; Z87.42 Personal history of other diseases of the female genital tract; Z87.891 Personal history of nicotine dependence; Z86.711 Personal history of pulmonary embolism; Z87.828 Personal history of other (healed) physical injury and trauma; Z86.19 Personal history of other infectious and parasitic diseases; Z85.41 Personal history of malignant neoplasm of cervix uteri; Z98.890 Other specified postprocedural states; W19.XXXA Unspecified fall, initial encounter; Z88.1 Allergy status to other antibiotic agents
CPT/HCPCS: 36415; 70553; 72156; 80053; 80061; 81003; 82607; 82746; 83036; 83605; 83615; 83690; 83735; 83883; 84165; 84703; 85025; 85610; 85652; 85730; 86038; 86334; 86431; 87390; 87635; 96361; 96365; 96375; 99285

== ENCOUNTER 2021-11-23 15:15 | Observation (INO) | payer OTHER ==
[2021-11-23 16:01] LABS: Basophils # (A) 0.1 k/uL (0-0.2); Basophils % (A) 1 %; Eosinophils # (A) 0.3 k/uL (0-0.7); Eosinophils % (A) 3 %; HCT 39.9 % (34.0-46.0); HGB 12.3 gm/dL (11.4-16.0); Lymphocytes # (A) 2.4 k/uL (1.0-4.8); Lymphocytes % (A) 29 %; MCHC 30.8 g/dL (31.0-37.0); MCV 94.2 fL (80.0-100.0); Mean Platelet Volume 7.3; Monocytes # (A) 0.4 k/uL (0-1.0); Monocytes % (A) 4 %; Neutrophils # (A) 5.1 k/uL (1.3-7.7); Neutrophils % (A) 61 %; Platelet Count 357 k/uL (150-450); RBC 4.24 m/uL (3.80-5.40); RDW 13.3 % (11.5-15.5); WBC 8.4 k/uL (3.8-10.6)
[2021-11-23 16:12] LABS: ALT 13 U/L (4-34); AST 17 U/L (14-36); African American GFR (CKD) >90 (>60 ml/min/1.73 sqM); Albumin 3.9 g/dL (3.5-5.0); Alkaline Phosphatase 58 U/L (38-126); Anion Gap 9 mmol/L; Blood Urea Nitrogen 10 mg/dL (7-17); Carbon Dioxide 22 mmol/L (22-30); Chloride 105 mmol/L (98-107); Glucose 118 mg/dL (74-99); Non-African American GFR(CKD) >90 (>60 ml/min/1.73 sqM); Potassium 4.2 mmol/L (3.5-5.1); Sodium 136 mmol/L (137-145); Total Bilirubin 0.4 mg/dL (0.2-1.3); Total Protein 7.2 g/dL (6.3-8.2)
[2021-11-23 16:14] LABS: INR 0.9 (<1.2); Partial Thromboplastin Time 25.9 sec (22.0-30.0); Prothrombin Time 9.8 sec (9.0-12.0)
--- NOTE | 2021-11-23 17:41 | CT ---
EXAMINATION TYPE: CT chest angio for PE DATE OF EXAM: 11/23/2021 COMPARISON: 10/30/2017 HISTORY: elevated D-Dimer. hx of PE CT DLP: 447.2 mGycm Automated exposure control for dose reduction was used. CONTRAST: Performed with IV Contrast, patient injected with 80 mL of Isovue 370. Images obtained from the thoracic inlet to the diaphragm with IV contrast. Three-D postprocessed images. The lungs are clear of infiltrate. No mediastinal adenopathy. There are no hilar masses. The ascendin g aorta measures 3 cm. Heart size is normal. There is a very small anterior pericardial effusion. The re is no thoracic aortic aneurysm or dissection. There is normal contrast opacification of the pulmonary arteries. There are no filling defects. The thoracic spine is intact. No compression fracture. Sternum is intact. IMPRESSION: No evidence of pulmonary embolism. No acute lung disease. There is a new small pericardial effusion compared to old exam.
--- NOTE | 2021-11-23 17:47 | ED ---
Chest Pain HPI - General Chief Complaint: Chest Pain Stated Complaint: Chest Pain Time Seen by Provider: 11/23/21 16:52 Source: patient Mode of arrival: ambulatory Limitations: no limitations - History of Present Illness Initial Comments: 41-year-old female with past medical history of protein C and S disorder, PE, MS who presents emergency room with chest pain. States it's been on and off for the past week. Located over the left chest wall. Today she was walking out of her bedroom when she had a sharp shooting pain that took her to the ground. She had associated shortness of breath. She describes it as an achy sensation right now and is mostly improved. She denies any previous history of cardiac disease. No fevers, chills or cough. Does have a history of a PE years ago and was on anticoagulation however has not been on any recently. She does follow with Dr. Mccarthy. No calf pain or swelling. No other alleviating, precipitating or mod ifying factors - Related Data Home Medications Medication Instructions Recorded Confirmed Citalopram Hydrobromide [CeleXA] 20 mg PO DAILY 09/06/21 11/23/21 traZODone HCL [Desyrel] 100 mg PO HS 09/06/21 11/23/21 Ergocalciferol (Vitamin D2) 1,250 mcg PO MOFR 11/23/21 11/23/21 [Drisdol (50,000 Iu)] Allergies Allergy/AdvReac Type Severity Reaction Status Date / Time vancomycin Allergy Severe Rash/Hives, Verified 11/23/21 17:44 itching, burning Review of Systems ROS Statement: Those systems with pertinent positive or pertinent negative responses have been documented in the HPI. ROS Other: All systems not noted in ROS Statement are negative. EKG Findings - EKG Comments: EKG Findings:: EKG demonstrates sinus rhythm with a rate of 85. OK interval 139. QRS 84. QTC 404. No acute ST segment elevations or depressions Past Medical History Past Medical History: Blood Disorder, Eye Disorder, Neurologic Disorder, Pulmonary Embolus (PE), Rheumatoid Arthritis (RA), Vascular Disorder Additional Past Medical History / Comment(s): MS, optic neuritis, proficiency C & S disorder, PE/pt cannot recall laterallity, aortic calcification, chin abscess/sepsis, UTI, chronic low back pain/bulging discs, possible ventral hernia, past meth abuse/clean for 7 months. History of Any Multi-Drug Resistant Organisms: MRSA Date of last positivie culture/infection: 06/21/19 [facility] MDRO Source:: Chin Past Surgical History: Appendectomy Additional Past Surgical History / Comment(s): ectopic (2/ L fallopian tube rupture with surgery, R labia abscess/I&D Past Anesthesia/Blood Transfusion Reactions: No Reported Reaction Past Psychological History: Anxiety Smoking Status: Former smoker Past Alcohol Use History: None Reported Past Drug Use History: Methamphetamine - Past Family History Father Family Medical History: No Reported History Mother History Unknown: Yes General Exam Limitations: no limitations General appearance: alert, in no apparent distress Head exam: Present: atraumatic, normocephalic, normal inspection Eye exam: Present: normal appearance, PERRL, EOMI. Absent: scleral icterus, conjunctival injection, periorbital swelling ENT exam: Present: normal exam, mucous membranes moist Neck exam: Present: normal inspection. Absent: tenderness, meningismus, lymphadenopathy Respiratory exam: Present: normal lung sounds bilaterally. Absent: respiratory distress, wheezes, rales, rhonchi, stridor Cardiovascular Exam: Present: regular rate, normal rhythm, normal heart sounds. Absent: systolic murmur, diastolic murmur, rubs, gallop, clicks GI/Abdominal exam: Present: soft, normal bowel sounds. Absent: distended, tenderness, guarding, rebound, rigid Extremities exam: Present: normal inspection, full ROM, normal capillary refill. Absent: tenderness, pedal edema, joint swelling, calf tenderness Back exam: Present: normal inspection Neurological exam: Present: alert, oriented X3, CN II-XII intact Psychiatric exam: Present: normal affect, normal mood Skin exam: Present: warm, dry, intact, normal color. Absent: rash Course Vital Signs 11/23/21 11/23/21 11/23/21 15:21 18:00 19:12 Temperature 98.2 F 98.3 F Pulse Rate 92 78 Pulse Rate [ 85 Pulse Oximetery ] Respiratory 20 18 16 Rate Blood Pressure 116/79 110/78 Blood Pressure 119/79 [Right Arm] O2 Sat by Pulse 98 97 96 Oximetry Chest Pain MDM - MDM Upon arrival patient is placed into room 8. A thorough history and physical exam was performed. 12-lead EKG is obtained. Laboratory studies are conducted. D-dimer is 2.3. As the patient does have a history of PE and is not on any anticoagulation she is sent for a CT of her chest. No PE is present however there is a small pericardial effusion. Recommended admission for echo which the patient did agree to. Spoke with Dr. Velazquez who agreed to admit the patient. Patient sent to the floor in stable condition Disposition Clinical Impression: Chest pain, Pericardial effusion, Protein C deficiency, Protein S deficiency Disposition: ADMITTED IP TO THIS HOSP Condition: Stable Is patient prescribed a controlled substance at d/c from ED?: No Decision to Admit Reason: Admit from EC Decision Date: 11/23/21 Decision Time: 18:25
[2021-11-23] MEDS ORDERED: NALOXONE 0.4 MG/ML 1 ML VIAL IV PRN (18:26)
[2021-11-23] MEDS: traZODone HCL 100 MG TAB PO SCH (19:35)
--- NOTE | 2021-11-23 23:16 | P.HPIM ---
History of Present Illness H&P Date: 11/23/21 The patient is a 41-year-old female with a PMH of protein C and S deficiency with history of PE (previously on anticoagulation Xarelto back in 2013, self discontinued with lost to follow-up, has appointment with Dr. Mccarthy coming up), and multiple sclerosis who presents to the emergency room with complaints of sudden onset chest pain. The patient reports that she was in her usual state of health until about 6 PM tonight as she was walking out of her room and hallway when she suddenly developed a sharp substernal severely pleuritic chest pain. The pain was 10 out of 10, lasted only for a few seconds, and acutely pleuritic in nature. She reports the pain recurred 2 more times, also lasting for a few seconds at a time. Reports mild substernal discomfort at the time of interview brought on with chest movement and stretching. Reports no changes in her pain with sitting up or laying down. Denied experiencing nausea, vomiting, diaphoresis, palpitations, dizziness. Also denied recent URIs, cough, fever, chills, abdominal pain, diarrhea. She does report an ulcer on her right buttock, which is now healing. Chest CT in the emergency room revealed a new small pericardial effusion with no evidence for PE. EKG revealed normal sinus rhythm at 85 bpm with inverted T waves in lead 3. Laboratory evaluation was remarkable for d-dimer of 2.30 with troponin less than 0.012. Review of systems: Pertinent positives and negatives as discussed in HPI, a complete review of systems was performed and all other systems are negative. Physical examination: General: non toxic, no distress, appears at stated age, obese Derm: Right buttock 4-5 cm stage II circular shallow ulcer noted with minimal surrounding erythema, no unusual ecchymoses, warm, dry Head: atraumatic, normocephalic, symmetric Eyes: EOMI, no lid lag, anicteric sclera, pupils equal round reactive to light ENT: Nose and ears atraumatic, no thrush, no pharyngeal erythema Neck: No thyromegaly, no cervical lymphadenopathy, trachea midline, supple Mouth: no lip lesion, mucus membranes moist Cardiovascular: S1S2 reg, no murmur, positive posterior tibial pulse bilateral, no edema, capillary refill less than 2 seconds, sternal chest wall tenderness Lungs: CTA bilateral, no rhonchi, no rales , no accessory muscle use Abdominal: soft, nontender to palpation, no guarding, no appreciable organomegaly, normal bowel sounds Ext: no gross muscle atrophy, muscle strength 5 out of 5 in all 4 extremities grossly, no contractures, Neuro: CN II-XI grossly intact, light touch intact all 4 extremities, finger to nose within normal limits, Psych: Alert, oriented, appropriate affect Assessment/plan Pleuritic substernal chest discomfort, suspicious for muscle spasm -Obtain echocardiogram to evaluate pericardium in light of new small effusion -Cardiac monitoring -Trend troponin -Obtain ESR/CRP Buttock ulcer -Obtain wound care consult Chronic conditions: Protein C and S deficiency, multiple sclerosis -Patient scheduled for follow-up with Dr. Mccarthy for possible resumption of anticoagulation -Continue the remaining home medications DVT prophylaxis -Heparin subcu The patient is admitted with an anticipated less than 2 midnight stay for evaluation of chest pain CODE STATUS: Full code Discussed with: Patient Anticipated discharge date: in am Anticipated discharge place: Home Past Medical History Past Medical History: Blood Disorder, Eye Disorder, Neurologic Disorder, Pulmonary Embolus (PE), Rheumatoid Arthritis (RA), Vascular Disorder Additional Past Medical History / Comment(s): MS, optic neuritis, proficiency C & S disorder, PE/pt cannot recall laterallity, aortic calcification, chin abscess/sepsis, UTI, chronic low back pain/bulging discs, possible ventral hernia, past meth abuse/clean for 7 months. History of Any Multi-Drug Resistant Organisms: MRSA Date of last positivie culture/infection: 06/21/19 [facility] MDRO Source:: Chin Past Surgical History: Appendectomy Additional Past Surgical History / Comment(s): ectopic (2/ L fallopian tube rupture with surgery, R labia abscess/I&D Past Anesthesia/Blood Transfusion Reactions: No Reported Reaction Past Psychological History: Anxiety Smoking Status: Former smoker Past Alcohol Use History: None Reported Past Drug Use History: Methamphetamine - Past Family History Father Family Medical History: No Reported History Mother History Unknown: Yes Medications and Allergies Home Medications Medication Instructions Recorded Confirmed Type Citalopram Hydrobromide [CeleXA] 20 mg PO DAILY 09/06/21 11/23/21 History traZODone HCL [Desyrel] 100 mg PO HS 09/06/21 11/23/21 History Ergocalciferol (Vitamin D2) 1,250 mcg PO MOFR 11/23/21 11/23/21 History [Drisdol (50,000 Iu)] Allergies Allergy/AdvReac Type Severity Reaction Status Date / Time vancomycin Allergy Severe Rash/Hives, Verified 11/23/21 17:44 itching, burning Physical Exam Vitals: Vital Signs Temp Pulse Pulse Resp BP BP Pulse Ox 11/23/21 19:12 98.3 F 85 16 119/79 96 11/23/21 18:00 78 18 110/78 97 11/23/21 15:21 98.2 F 92 20 116/79 98 Intake and Output 11/23/21 11/23/21 11/23/21 06:59 14:59 22:59 Other: Weight 86.636 kg Results CBC & Chem 7: 11/23/21 15:39 11/23/21 15:39 Labs: Abnormal Lab Results - Last 24 Hours (Table) 11/23/21 11/23/21 11/23/21 Range/Units 15:39 15:39 15:39 MCHC 30.8 L (31.0-37.0) g/dL D-Dimer 2.30 H (<0.60) mg/L FEU Sodium 136 L (137-145) mmol/L Glucose 118 H (74-99) mg/dL Thrombosis Risk Factor Assmnt - Choose All That Apply Each Factor Represents 1 point: Obesity (BMI >25) Other Risk Factors: No Other congenital or acquired thrombophilia - If yes, enter type in comment: No Thrombosis Risk Factor Assessment Total Risk Factor Score: 1 Thrombosis Risk Factor Assessment Level: Low Risk
[2021-11-24] MEDS: HEPARIN SODIUM,PORCINE/PF 5,000 UNIT/0.5 ML SYRINGE SQ SCH ×4 (00:32→20:58)
[2021-11-24 09:10] LABS: Basophils # (A) 0.08 X 10*3/uL (0.00-0.10); Eosinophils # (A) 0.22 X 10*3/uL (0.04-0.35); Eosinophils % (A) 2.7 %; HCT 36.3 % (37.2-46.3); HGB 11.5 g/dL (12.0-15.0); Immature Grans, Automated 0.2 %; Lymphocytes # (A) 2.78 X 10*3/uL (0.90-5.00); Lymphocytes % (A) 33.5 %; MCH 29.7 pg (27.0-32.0); MCHC 31.7 g/dL (32.0-37.0); MCV 93.8 fL (80.0-97.0); Mean Platelet Volume 10.2 fL (9.5-12.2); Monocytes # (A) 0.72 X 10*3/uL (0.20-1.00); Monocytes % (A) 8.7 %; NRBC Per 100 WBC 0 /100 WBCS (0.0-0.0); Neutrophils # (A) 4.47 X 10*3/uL (1.80-7.70); Neutrophils % (A) 53.9 %; Platelet Count 358 X 10*3/uL (140-440); RBC 3.87 X 10*6/uL (4.10-5.20); RDW 13.7 % (11.5-14.5); WBC 8.29 X 10*3/uL (4.50-10.00)
[2021-11-24 09:16] LABS: African American GFR (CKD) 132.1 (60.0-200.0); Anion Gap 10.5 mmol/L (10.00-18.00); BUN/Creat Ratio 15.5 Ratio (12.00-20.00); Blood Urea Nitrogen 9.3 mg/dL (9.0-27.0); Calcium 8.8 mg/dL (8.7-10.3); Carbon Dioxide 23.5 mmol/L (20.0-27.5); Potassium 4.6 mmol/L (3.5-5.5)
[2021-11-24] MEDS: CITALOPRAM HYDROBROMIDE 20 MG TAB PO SCH (09:41)
--- NOTE | 2021-11-24 13:45 | P.PN ---
Subjective Progress Note Date: 11/24/21 Principal diagnosis: Chest pain Patient was seen and examined. No acute events overnight. She reports improvement in her pleuritic chest pain. She denies any shortness of breath. No nausea or vomiting. No fever or chills. Objective - Vital Signs Vital signs: Vital Signs Temp 98.1 F 11/24/21 07:06 Pulse 78 11/24/21 08:00 Resp 18 11/24/21 08:00 BP 104/62 11/24/21 07:06 Pulse Ox 98 11/24/21 07:06 Intake & Output 11/23/21 11/24/21 11/24/21 18:59 06:59 18:59 Weight 86.636 kg Other: Voiding Method Toilet # Voids 2 - Exam General: [non toxic], [no distress], [appears at stated age] Derm: [warm], [dry], [right buttock stage II circular ulcer] Head: [atraumatic], [normocephalic], [symmetric] Eyes: [EOMI], [no lid lag], [anicteric sclera] Mouth: [no lip lesion], [mucus membranes moist] Cardiovascular: [S1S2 reg], [no murmur], [sternal chest wall tenderness] Lungs: [CTA bilateral], [no rhonchi, no rales] , [no accessory muscle use] Ext: [no gross muscle atrophy], [no edema], [no contractures] Neuro: [no focal neuro deficits] Psych: [Alert], [oriented], [appropriate affect] - Labs CBC & Chem 7: 11/24/21 05:56 11/24/21 05:56 Labs: Abnormal Lab Results - Last 24 Hours (Table) 11/23/21 11/23/21 11/23/21 Range/Units 15:39 15:39 15:39 RBC (4.10-5.20) X 10*6/uL Hgb (12.0-15.0) g/dL Hct (37.2-46.3) % MCHC 30.8 L (31.0-37.0) g/dL ESR (0-20) mm/hr D-Dimer 2.30 H (<0.60) mg/L FEU Sodium 136 L (137-145) mmol/L Glucose 118 H (74-99) mg/dL 11/24/21 11/24/21 Range/Units 00:35 05:56 RBC 3.87 L (4.10-5.20) X 10*6/uL Hgb 11.5 L (12.0-15.0) g/dL Hct 36.3 L (37.2-46.3) % MCHC 31.7 L (31.0-37.0) g/dL ESR 25 H (0-20) mm/hr D-Dimer (<0.60) mg/L FEU Sodium (137-145) mmol/L Glucose (74-99) mg/dL Assessment and Plan Assessment: Assessment/plan Pleuritic substernal chest discomfort, suspicious for muscle spasm Pleural effusion -Obtain echocardiogram to evaluate pericardium in light of new small effusion (not available today) -Cardiac monitoring -ACS ruled out -CRP within normal limits -ESR elevated at 25 Buttock ulcer -Obtain wound care consult Chronic conditions: Protein C and S deficiency, multiple sclerosis -Patient scheduled for follow-up with Dr. Mccarthy for possible resumption of anticoagulation -Continue the remaining home medications DVT prophylaxis -Heparin subcu The patient is admitted with an anticipated less than 2 midnight stay for ev aluation of chest pain CODE STATUS: Full code Discussed with: Patient Anticipated discharge date: Tomorrow Anticipated discharge place: Home Patient admitted for chest pain. Pleuritic and tenderness to palpation. Non cardiac. No echocardiogram available today, likely to be done tomorrow. Anticipate DC home tomorrow after Echocardiogram.
[2021-11-24] MEDS: traZODone HCL 100 MG TAB PO SCH (20:58)
[2021-11-25 07:43] VITALS: RESP 16; TEMP 98.2
[2021-11-25] MEDS: HEPARIN SODIUM,PORCINE/PF 5,000 UNIT/0.5 ML SYRINGE SQ SCH (08:38)
[2021-11-25] MEDS: CITALOPRAM HYDROBROMIDE 20 MG TAB PO SCH (08:38)
[2021-11-25 10:17] VITALS: BP 127/74; PULSE 89
--- NOTE | 2021-11-25 11:46 | P.CONS ---
History of Present Illness - Reason for Consult Consult date: 11/25/21 wound care - History of Present Illness This is a 41-year-old patient with history of MRSA being seen by the wound care center on for nonhealing ulceration to the right buttocks. Patient states that the ulceration started as a abscess and has opened up approximately 3 weeks ago. Ulceration is now showing improvement in size and morphology. It continues to drain. Ulceration measures approximately 1.2 x 4.1 x 0.1 cm with fatty layer exposure. Wound edges are attached to the wound base no tenderness or undermining noted. There is granulation seen throughout the wound bed with minimal Slough and nonviable tissue. The periwound does not show any excoriation or maceration. Patient states that previously to this abscess her daughter had MRSA abscess to her skin. She is requesting a culture of the site. Review Of Systems: Constitutional: No fever, no chills, no night sweats. No weight change. No wea kness, fatigue or lethargy. No daytime sleepiness. Integumentary:reports wounds, no lesions. No rash or pruritus. No unusual bruising. No change in hair or nails. Physical exam: General Appearance: Alert, cooperative, no distress, appears stated age. Skin: See HPI all other Skin color, texture, tugor normal, no rashes or lesions. Neurologic: Alert oriented x3 Assessment: 1. Nonhealing ulceration with fatty layer exposure to the right buttocks Plan: 1. Apply honey alginate, saline moistened gauze and border foam. Change Thursday. Thank you for the consultation any questions was contact the wound care center DNP note has been reviewed and discussed with Dr. Babin and the impression and plan of care has been directed as dictated. Past Medical History Past Medical History: Blood Disorder, Eye Disorder, Neurologic Disorder, Pulmonary Embolus (PE), Rheumatoid Arthritis (RA), Vascular Disorder Additional Past Medical History / Comment(s): MS, optic neuritis, proficiency C & S disorder, PE/pt cannot recall laterallity, aortic calcification, chin abscess/sepsis, UTI, chronic low back pain/bulging discs, possible ventral hernia, past meth abuse/clean for 7 months. History of Any Multi-Drug Resistant Organisms: MRSA Year Discovered:: 06/21/19 [facility] MDRO Source:: Chin Past Surgical History: Appendectomy Additional Past Surgical History / Comment(s): ectopic (2/ L fallopian tube rupture with surgery, R labia abscess/I&D Past Anesthesia/Blood Transfusion Reactions: No Reported Reaction Past Psychological History: Anxiety Smoking Status: Former smoker Past Alcohol Use History: None Reported Past Drug Use History: Methamphetamine - Past Family History Father Family Medical History: No Reported History Mother History Unknown: Yes Medications and Allergies Home Medications Medication Instructions Recorded Confirmed Type Citalopram Hydrobromide [CeleXA] 20 mg PO DAILY 09/06/21 11/23/21 History traZODone HCL [Desyrel] 100 mg PO HS 09/06/21 11/23/21 History Ergocalciferol (Vitamin D2) 1,250 mcg PO MOFR 11/23/21 11/23/21 History [Drisdol (50,000 Iu)] Allergies Allergy/AdvReac Type Severity Reaction Status Date / Time vancomycin Allergy Severe Rash/Hives, Verified 11/23/21 17:44 itching, burning Physical Exam Vitals: Vital Signs Temp Pulse Resp BP Pulse Ox 11/25/21 10:16 89 127/74 97 11/25/21 07:00 98.2 F 79 16 110/69 97 11/25/21 02:41 98.4 F 85 18 101/66 97 11/25/21 02:15 92 18 11/24/21 20:58 92 18 11/24/21 19:55 98.5 F 60 18 136/64 97 11/24/21 15:00 98.1 F 92 18 111/70 96 11/24/21 14:00 78 18 Intake and Output 11/24/21 11/25/21 11/25/21 22:59 06:59 14:59 Intake Total 118 59 Balance 118 59 Intake: Oral 118 59 Other: Voiding Method Toilet Toilet # Voids 1 2 Results CBC & Chem 7: 11/24/21 05:56 11/24/21 05:56 Assessment and Plan (1) Non-pressure chronic ulcer of buttock with fat layer exposed Current Visit: Yes Status: Acute Code(s): L98.412 - NON-PRESSURE CHRONIC ULCER OF BUTTOCK WITH FAT LAYER EXPOSED SNOMED Code(s): 428121149
--- NOTE | 2021-11-25 11:52 | CA ---
Transthoracic Echo Report Name: Mónica Rao Age: 41 Gender: F : 1980 Exam Date: 11/25/2021 07:44 Exam Location: [facility] Ht (in): 63 Wt (lb): 191 Ordering Physician: Manasa Dudley DO Attending/Referring Phys: [id number], Luis Enrique Signs Cleaner Jacki John, IVETH Procedure CPT: Indications: chest pain, pericardial effusion Cardiac Hx: Hx of pericardial effusion. Technical Quality: Poor Contrast 1: Lumason Total Dose (mL): 1 Contrast 2: Total Dose (mL): MEASUREMENTS (Male / Female) Normal Values 2D ECHO LV Diastolic Diameter PLAX 3.7 cm 4.2 - 5.9 / 3.9 - 5.3 cm LV Systolic Diameter PLAX 2.6 cm IVS Diastolic Thickness 1.1 cm 0.6 - 1.0 / 0.6 - 0.9 cm LVPW Diastolic Thickness 1.1 cm 0.6 - 1.0 / 0.6 - 0.9 cm LV Relative Wall Thickness 0.6 RV Internal Dim ED PLAX 1.9 cm LA Volume 35.1 cm??? 18 - 58 / 22 - 52 cm??? M-MODE Aortic Root Diameter MM 2.9 cm LA Systolic Diameter MM 3.1 cm LA Ao Ratio MM 1.1 MV E Point Septal Separation 1.5 cm AV Cusp Separation MM 1.9 cm DOPPLER AV Peak Velocity 124.9 cm/s AV Peak Gradient 6.2 mmHg MV Area PHT 3.3 cm??? MR Peak Velocity 147.4 cm/s MR Peak Gradient 8.7 mmHg Mitral E Point Velocity 99.4 cm/s Mitral A Point Velocity 84.3 cm/s Mitral E to A Ratio 1.2 MV Deceleration Time 228.4 ms TR Peak Velocity 122.6 cm/s TR Peak Gradient 6.0 mmHg Right Ventricular Systolic Press 10.5 mmHg FINDINGS Left Ventricle Mildly increased septal wall thickness. Mildly increased posterior wall thickness. Left ventricular ejection fraction is estimated at 55-60 %. Right Ventricle The right ventricle is normal in size and function. Right Atrium The right atrium is normal in size. Left Atrium The left atrium is normal in size. Mitral Valve Structurally normal mitral valve without significant stenosis or prolapse. There is no mitral regurgitation. Trace mitral regurgitation. Aortic Valve Structurally normal aortic valve without significant sclerosis or stenosis. There is no aortic regurgitation. Tricuspid Valve Structurally normal tricuspid valve without significant stenosis. Pulmonary artery systolic pressure is normal. Trace tricuspid regurgitation. Pulmonic Valve Structurally normal pulmonic valve without significant stenosis. There is no pulmonic regurgitation. Pericardium Normal pericardium without effusion. Aorta Normal aortic root dimension. CONCLUSIONS Left ventricular systolic function is normal Previewed by: Dr. Juan Jackson MD (Electronically Signed) Final Date: 25 Nov 2021 11:51
[2021-11-25 13:04] VITALS: BMI 33.8
--- NOTE | 2021-11-25 13:17 | P.DS ---
Providers Date of admission: 11/23/21 18:39 Expected date of discharge: 11/25/21 Attending physician: Bautista Chu MD Primary care physician: Dary La [facility] Course: Discharge Diagnosis: Chest pain, acute coronary event ruled out. Chest pain resolved likely secondary to pleurisy versus costochondritis, as pain was reproducible upon palpation with previous reports of sternal chest wall tenderness Ulceration of right buttocks, patient was evaluated by wound care, recommending applying honey alginate with a saline moistened gauze and border foam and changing dressing every Thursday, Thursday, and Thursday. Multiple sclerosis Protein C and S deficiency with history of PE previously on anticoagulation, recommend continued long-term monitoring/management/follow-up with hematology. Hospital Course: Patient is a very pleasant 41-year-old female with a past medical history of MS and protein C and S deficiency with history of PE previously on anticoagulation. She presented to the emergency department with a chief complaint of chest pain and prolonged healing ulceration to right buttocks. She was seen and fully evaluated in the emergency department. EKG showing normal sinus rhythm at 78 bpm with no noted T-wave or ST abnormalities. Troponin negative at less than 0.012. CBC and BMP unremarkable. D-dimer elevated at 2.30. CTA completed negative for pulmonary emboli revealing no acute cardiopulmonary process. Patient admitted under our services with consultation to cardiology and wound care.Troponins trended negative at less than 0.0123 draws. Echocardiogram revealing a normal EF between 55-60% with no reported valvular abnormalities. Cardiology recommending outpatient follow-up. Patient was evaluated by wound care for ulceration of right buttocks, recommending applying honey alginate with a saline moistened gauze and border foam and changing dressing every Thursday, Thursday, and Thursday. Patient is medically stable at this time. Physical examination: Patient seen and examined at bedside. Patient is currently free from chest pain/discomfort and denies having any headache, lightheadedness, dizziness, palpitations, shortness of breath, or experiencing any numbness/tingling/weakness in her extremities. Vital signs reviewed and stable. General: Nontoxic, no distress and appears stated age. Derm: Skin warm and dry, normal coloration for ethnicity. Patient has a small circular ulceration to right buttocks Head: Atraumatic, normocephalic and symmetric. Eyes: EOMs intact, no lid lag, and anicteric sclera Mouth: no lip lesions, mucus membranes moist Cardiovascular: regular rate and rhythm with normal S1S2, no murmur, positive posterior tibial pulses bilaterally, and cap refill < 2 seconds. Lungs: Respirations even, regular, and unlabored on room air. Lungs CTA bilaterally, no rhonchi, no rales, no wheezing, and no accessory muscle usage. Abdominal: soft, nontender to palpation, no guarding, no appreciable organomegaly Ext: ROM intact. No gross muscle atrophy, no edema, no contractures Neuro: Speech clear, face symmetrical and CN II-XII grossly intact with no noted focal neuro deficits Psych: Alert and oriented to person, place, time, and situation. Appropriate and pleasant affect. A total of 36 minutes of time were spent preparing this complex discharge summary. Pt was discharged on 11/25/21 at 12:58 PM. I reviewed the documentation as provided by the BEE above, who is the original author of this note. I agree with the documented assessment and plan, with the following changes: none Patient Condition at Discharge: Stable Plan - Discharge Summary Discharge Rx Participant: No New Discharge Prescriptions: Continue traZODone HCL [Desyrel] 100 mg PO HS Citalopram Hydrobromide [CeleXA] 20 mg PO DAILY Ergocalciferol (Vitamin D2) [Drisdol (50,000 Iu)] 1,250 mcg PO MOFR Discharge Medication List Citalopram Hydrobromide [CeleXA] 20 mg PO DAILY 09/06/21 [History] traZODone HCL [Desyrel] 100 mg PO HS 09/06/21 [History] Ergocalciferol (Vitamin D2) [Drisdol (50,000 Iu)] 1,250 mcg PO MOFR 11/23/21 [History] Follow up Appointment(s)/Referral(s): Dary La MD [Primary Care Provider] - 1-2 days Juan Jackson MD [STAFF PHYSICIAN] - 1 Week (will call patient to set up appointment) Patient Instructions/Handouts: Chest Pain (DC) Activity/Diet/Wound Care/Special Instructions: Activity: As tolerated. Take breaks as needed. Diet: Heart healthy and carb consistent diet. Avoid salts, or foods with hidden salts such as canned or boxed foods and frozen dinners. Extra salt makes your heart work harder and traps the fluid in your body for longer. Special Instructions: Take all of your medications as directed and remember to keep all of your doctor's appointments and follow-up as needed. Thank you for allowing us to participate in your care, it was truly a pleasure having you for our patient!!! Discharge Disposition: HOME SELF-CARE
== END 2021-11-25 14:09 | disposition home or self-care (01) ==
LOC: EC 15:15 → 6NMEDSUR 18:39
PROVIDERS: ADMIT Family Medicine; ATTEND Family Medicine
DX: R07.89 Other chest pain (principal); R07.81 Pleurodynia; L98.412 Non-pressure chronic ulcer of buttock with fat layer exposed; G35 Multiple sclerosis; R79.89 Other specified abnormal findings of blood chemistry; D68.59 Other primary thrombophilia; Z79.899 Other long term (current) drug therapy; R06.02 Shortness of breath; G89.29 Other chronic pain; M54.50 Low back pain, unspecified; E66.9 Obesity, unspecified; Z68.33 Body mass index [BMI] 33.0-33.9, adult; R70.0 Elevated erythrocyte sedimentation rate; I31.3 Pericardial effusion (noninflammatory); Z88.1 Allergy status to other antibiotic agents; F41.9 Anxiety disorder, unspecified; M06.9 Rheumatoid arthritis, unspecified; H46.9 Unspecified optic neuritis; Z86.711 Personal history of pulmonary embolism; Z87.891 Personal history of nicotine dependence; Z87.440 Personal history of urinary (tract) infections; Z86.14 Personal history of Methicillin resistant Staphylococcus aureus infection; Z86.19 Personal history of other infectious and parasitic diseases; Z90.49 Acquired absence of other specified parts of digestive tract
CPT/HCPCS: 96372 ×2; 99285; 36415; 93005; 85379; 80053; 80048; 85652; 84484 ×2; 85025 ×2; 85610; 85730; 86140; 87070; 87205; 87075; 87077; 87186; 71275; G0378 ×3; C8929; Q9950; Q9967; J1644 ×2; 93306

== ENCOUNTER 2022-01-15 17:21 | Inpatient (IN) | payer OTHER ==
--- NOTE | 2022-01-15 17:43 | ED ---
Chest Pain HPI <Sakshi Lee - Last Filed: 01/15/22 18:54> <Estevan Gonzalez - Last Filed: 01/16/22 01:42> - General Chief Complaint: Chest Pain Stated Complaint: chest pain Time Seen by Provider: 01/15/22 17:23 - History of Present Illness Initial Comments: Patient is a 41-year-old female presents to the emergency room with complaints of chest pain. She reports that she was having chest pain earlier in the day and went to urgent care at urgent care she received aspirin Zofran and nitroglycerin. She states that her chest pain is doing better at this time and at this time she has none. She was previously in the hospital with similar complaints and was in the process of following up with cardiology outpatient prior to today's events. She was on anticoagulation for a protein S and protein C deficiencies with a known history of PE and DVT unfortunately she ran out of her prescription and has been off of blood thinners for a few days now. She states that her primary care provider was going to start her on Eliquis an appointment that she had today. She was referred to oncology/hematology on discharge last month to follow-up regarding her anticoagulation meaning needs however she has not seen them. She follows with neurology in regards to her MS and has chronic left-sided weakness which has increased over the last few days but overall it is near her baseline. She states that she was to start [place] wrist injections soon for treatment of what now she is being advised is progressive multiple sclerosis. She reports that she has chronic dizziness and difficulty with memory due to her MS in addition to her left-sided weakness. Patient has a history of MRSA infections. Patient has a history of methamphetamine abuse however has been clean since 02/06/2021. She denies any wounds or infections at this time. She denies any shortness of breath, cough, dizziness worse than baseline, diaphoresis fevers or chills. (Sakshi Lee) - Related Data Home Medications Medication Instructions Recorded Confirmed Citalopram Hydrobromide [CeleXA] 20 mg PO DAILY 09/06/21 01/15/22 traZODone HCL [Desyrel] 100 mg PO HS 09/06/21 01/15/22 Ergocalciferol (Vitamin D2) 1,250 mcg PO MOFR 11/23/21 01/15/22 [Drisdol (50,000 Iu)] Apixaban [Eliquis] 5 mg PO BID 01/15/22 01/15/22 Pantoprazole Sodium [Protonix] 40 mg PO DAILY 01/15/22 01/15/22 Allergies Allergy/AdvReac Type Severity Reaction Status Date / Time vancomycin Allergy Severe Rash/Hives, Verified 01/15/22 18:42 itching, burning Review of Systems ROS Other: All systems not noted in ROS Statement are negative. <Sakshi Lee - Last Filed: 01/15/22 18:54> ROS Other: All systems not noted in ROS Statement are negative. <Estevan Gonzalez - Last Filed: 01/16/22 01:42> ROS Statement: Those systems with pertinent positive or pertinent negative responses have been documented in the HPI. EKG Findings - EKG Comments: EKG Findings:: Normal sinus rhythm, ventricular rate 74 bpm, MS interval 150 ms, QRS duration 82 ms, QT/QTc 376/403 ms PRT axis East 30, 50, 26 <Sakshi Lee - Last Filed: 01/15/22 18:54> Past Medical History Past Medical History: Blood Disorder, Eye Disorder, Neurologic Disorder, Pulmonary Embolus (PE), Rheumatoid Arthritis (RA), Vascular Disorder Additional Past Medical History / Comment(s): MS, optic neuritis, proficiency C & S disorder, PE/pt cannot recall laterallity, aortic calcification, chin abscess/sepsis, UTI, chronic low back pain/bulging discs, possible ventral hernia, past meth abuse/clean for 7 months. History of Any Multi-Drug Resistant Organisms: MRSA Date of last positivie culture/infection: 06/21/19 [facility] MDRO Source:: Chin Past Surgical History: Appendectomy Additional Past Surgical History / Comment(s): ectopic (2/ L fallopian tube rupture with surgery, R labia abscess/I&D Past Anesthesia/Blood Transfusion Reactions: No Reported Reaction Past Psychological History: Anxiety Smoking Status: Former smoker Past Alcohol Use History: None Reported Past Drug Use History: Methamphetamine - Past Family History Father Family Medical History: No Reported History Mother History Unknown: Yes <Sakshi Lee - Last Filed: 01/15/22 18:54> General Exam General appearance: alert, in no apparent distress Head exam: Present: atraumatic, normocephalic, normal inspection Eye exam: Present: normal appearance, PERRL, EOMI. Absent: scleral icterus, conjunctival injection, nystagmus, periorbital swelling ENT exam: Present: normal exam, mucous membranes moist Neck exam: Present: normal inspection Respiratory exam: Present: normal lung sounds bilaterally. Absent: respiratory distress, wheezes, rales, rhonchi, stridor Cardiovascular Exam: Present: regular rate, normal rhythm, normal heart sounds. Absent: systolic murmur, diastolic murmur, rubs, gallop, clicks GI/Abdominal exam: Present: soft, normal bowel sounds. Absent: tenderness Extremities exam: Present: normal capillary refill. Absent: pedal edema, joint swelling, calf tenderness Neurological exam: Present: alert, oriented X3, CN II-XII intact Psychiatric exam: Present: normal affect, normal mood Skin exam: Present: warm, dry, intact, normal color. Absent: rash <Sakshi Lee - Last Filed: 01/15/22 18:54> Course - Reevaluation(s) Time: 18:53 <Sakshi Lee - Last Filed: 01/15/22 18:54> Vital Signs 01/15/22 01/15/22 17:30 19:48 Temperature 98.4 F Pulse Rate 72 82 Respiratory 16 18 Rate Blood Pressure 120/65 109/69 O2 Sat by Pulse 98 97 Oximetry - Reevaluation(s) Reevaluation #1: Case signed out to Dr. Preston (Sakshi Lee) Chest Pain [facility] <Sakshi Lee - Last Filed: 01/15/22 18:54> - [facility] PERC score=1 Due to past medical history of protein S and protein C deficiency with lack of anticoagulation x greater than 48 hours along with chest pain earlier today will check CTA for PE. No evidence of DVT at this time. EKG normal sinus rhythm will trend troponins. Will also check CBC, CMP, magnesium and d- dimer. Patiently currently resting comfortably chest pain free at this time. Will monitor closely. Troponin negative 1. CBC, Mg and CMP within normal limits; except d-dimer elevation noted. Computed tomography scan chest pending. Chest x-ray negative for acute cardiopulmonary processes. Patient continues to remain chest pain-free with stable vital signs. Case discussed and signed out to Dr. Preston. (Sakshi Lee) Disposition <Sakshi Lee - Last Filed: 01/15/22 18:54> Is patient prescribed a controlled substance at d/c from ED?: No <Estevan Gonzalez - Last Filed: 01/16/22 01:42> Clinical Impression: Chest pain Disposition: ADMITTED IP TO THIS HOSP Condition: Fair Referrals: Dary La MD [Primary Care Provider] - 1-2 days
[2022-01-15 18:14] LABS: Basophils # (A) 0.1 k/uL (0-0.2); Basophils % (A) 1 %; Eosinophils # (A) 0.1 k/uL (0-0.7); Eosinophils % (A) 2 %; HCT 37.5 % (34.0-46.0); Lymphocytes # (A) 2.7 k/uL (1.0-4.8); Lymphocytes % (A) 35 %; MCH 29.6 pg (25.0-35.0); MCV 92.4 fL (80.0-100.0); Mean Platelet Volume 7.4; Monocytes # (A) 0.5 k/uL (0-1.0); Monocytes % (A) 6 %; Neutrophils # (A) 4.1 k/uL (1.3-7.7); Neutrophils % (A) 54 %; Platelet Count 323 k/uL (150-450); RBC 4.05 m/uL (3.80-5.40); RDW 13.9 % (11.5-15.5); WBC 7.5 k/uL (3.8-10.6)
--- NOTE | 2022-01-15 18:16 | XR ---
EXAMINATION TYPE: XR chest 2V DATE OF EXAM: 01/15/2022 COMPARISON: 06/23/2019 INDICATION: Chest pain TECHNIQUE: Frontal and lateral views of the chest are obtained. FINDINGS: The heart size is normal. The pulmonary vasculature is normal. The lungs are clear. IMPRESSION: 1. No acute pulmonary process.
[2022-01-15 18:23] LABS: ALT 14 U/L (4-34); AST 20 U/L (14-36); African American GFR (CKD) >90 (>60 ml/min/1.73 sqM); Albumin 4.5 g/dL (3.5-5.0); Alkaline Phosphatase 62 U/L (38-126); Anion Gap 10 mmol/L; Blood Urea Nitrogen 17 mg/dL (7-17); Calcium 9.5 mg/dL (8.4-10.2); Carbon Dioxide 23 mmol/L (22-30); Chloride 103 mmol/L (98-107); Glucose 93 mg/dL (74-99); Magnesium 1.9 mg/dL (1.6-2.3); Non-African American GFR(CKD) 90 (>60 ml/min/1.73 sqM); Potassium 4.1 mmol/L (3.5-5.1); Sodium 136 mmol/L (137-145); Total Bilirubin 0.2 mg/dL (0.2-1.3); Total Protein 7.6 g/dL (6.3-8.2)
[2022-01-15 18:25] LABS: INR 0.9 (<1.2)
[2022-01-15 18:26] LABS: Partial Thromboplastin Time 22.9 sec (22.0-30.0); Prothrombin Time 9.7 sec (9.0-12.0)
--- NOTE | 2022-01-15 20:09 | CT ---
CT CHEST FOR PULMONARY EMBOLISM. EXAMINATION TYPE: CT chest angio for PE DATE OF EXAM: 01/15/2022 INDICATION: dizzy and chest pain. hx of MS CT DLP: 371.2 mGycm, Automated exposure control for dose reduction was used. CONTRAST: Patient injected with 74 mL of Isovue 370. COMPARISON: 11/23/2021 TECHNIQUE: CT of the chest is performed on a spiral scan at 2 mm thick sections. Study is performed with intravenous contrast timed for evaluation for pulmonary embolism. This will limit additional po rtions of the evaluation. 3-D MIP images reconstructed by the technologist are reviewed on the compu ter in the coronal and sagittal planes. FINDINGS: No persistent filling defects are evident to suggest an acute pulmonary embolism. No mediastinal or hilar adenopathy enlarged by CT criteria is evident. The ascending aorta diameter at the level of the main pulmonary artery is 3.1 cm. The main pulmonary artery diameter at the bifur cation is 2.5 cm. Lung windows are clear. Limited CT section through the upper abdomen are unremarkable. IMPRESSIONS: 1. No acute pulmonary embolism.
[2022-01-15] MEDS ORDERED: methylPREDNISolone SOD SUCCIN 1,000 MG in SODIUM CHLORIDE 0.9% 250 ML IVPB STA (20:44)
[2022-01-16] MEDS ORDERED: ONDANSETRON 4 MG/2 ML VIAL IVP PRN (01:42)
[2022-01-16] MEDS ORDERED: MORPHINE SULFATE 4 MG/ML SYRINGE IV PRN (01:42)
[2022-01-16] MEDS ORDERED: NALOXONE 0.4 MG/ML 1 ML VIAL IV PRN (01:42)
[2022-01-16] MEDS: SODIUM CHLORIDE 0.9% 1,000 ML IV SCH (01:56)
[2022-01-16] MEDS ORDERED: ALPRAZolam 0.5 MG TAB PO PRN (04:43)
--- NOTE | 2022-01-16 04:50 | P.HPIM ---
History of Present Illness H&P Date: 01/16/22 Chief Complaint: Dizziness, falls, left-sided weakness 41-year-old female with multiple sclerosis, protein C&S deficiency with history of venous thromboembolism Patient comes into the hospital for evaluation today due to few day history of increased dizziness left-sided weakness and multiple falls. She reports history of multiple sclerosis was concerned that she is having a flareup. She denies any headache double vision or tinnitus she denies any fevers chills upper respiratory infection symptoms denies any abdominal pain nausea vomiting changes in her bowel or urinary habits. Patient does report weakness mainly in the left leg and decreased sensation over the left side. She is also feeling shaky over her left leg which is giving out resulting in multiple falls. Upon arrival in the ED she mentioned that she was also having reproducible chest pain which is now gone she follows up with cardiology she had one stress test recently and her cripple chaser was planning on repeating that. She also reports that she has ran out of her blood thinners for few days and she was concerned that she might get another clot in the ED d-dimer was elevated CT angios the chest was negative for acute PE patient was given 1 dose of 1 g Solu- Medrol was admitted for neurology evaluation Review of Systems Pertinent positives as noted in HPI. All other systems were reviewed and are negative Past Medical History Past Medical History: Blood Disorder, Eye Disorder, Neurologic Disorder, Pulmonary Embolus (PE), Rheumatoid Arthritis (RA), Vascular Disorder Additional Past Medical History / Comment(s): MS, optic neuritis, proficiency C & S disorder, PE/pt cannot recall laterallity, aortic calcification, chin abscess/sepsis, UTI, chronic low back pain/bulging discs, possible ventral hernia, past meth abuse/clean for 7 months. History of Any Multi-Drug Resistant Organisms: MRSA Date of last positivie culture/infection: 06/21/19 [facility] MDRO Source:: Chin Past Surgical History: Appendectomy Additional Past Surgical History / Comment(s): ectopic (2/ L fallopian tube rupture with surgery, R labia abscess/I&D Past Anesthesia/Blood Transfusion Reactions: No Reported Reaction Past Psychological History: Anxiety Additional Psychological History / Comment(s): Pt currently staying at [facility] d/t was homeless and at higher risk to relapse with meth addiction. Past rehab for meth addiction/clean for 7 [address] Pt [address], she gets to [facility] by bus or her sister. She is otherwise independent. Smoking Status: Former smoker Past Alcohol Use History: None Reported Additional Past Alcohol Use History / Comment(s): Pt started smoking in 1997 and quit 3 months ago. Past Drug Use History: Methamphetamine Additional Drug Use History / Comment(s): Pt has hx of meth addiction with rehab. She has not used meth in 7 months. - Past Family History Father Family Medical History: No Reported History Mother History Unknown: Yes Medications and Allergies Home Medications Medication Instructions Recorded Confirmed Type Citalopram Hydrobromide [CeleXA] 20 mg PO DAILY 09/06/21 01/15/22 History traZODone HCL [Desyrel] 100 mg PO HS 09/06/21 01/15/22 History Ergocalciferol (Vitamin D2) 1,250 mcg PO MOFR 11/23/21 01/15/22 History [Drisdol (50,000 Iu)] Apixaban [Eliquis] 5 mg PO BID 01/15/22 01/15/22 History Pantoprazole Sodium [Protonix] 40 mg PO DAILY 01/15/22 01/15/22 History Allergies Allergy/AdvReac Type Severity Reaction Status Date / Time vancomycin Allergy Severe Rash/Hives, Verified 01/15/22 18:42 itching, burning Physical Exam Vitals: Vital Signs Temp Pulse Pulse Resp BP BP Pulse Ox 01/16/22 02:40 98.3 F 87 18 120/80 97 01/16/22 01:55 98.2 F 83 18 116/80 98 01/15/22 19:48 82 18 109/69 97 01/15/22 17:30 98.4 F 72 16 120/65 98 Intake and Output 01/15/22 01/15/22 01/16/22 14:59 22:59 06:59 Other: Weight 86.183 kg 86.183 kg Constitutional: No acute distress, conversant, slightly anxious Eyes: Anicteric sclerae, moist conjunctiva, Pupils equal round reactive to light ENMT: NC/AT Oropharynx clear, no erythema, or exudates Neck: Supple, FROM, no masses, or JVD No carotid bruits No thyromegaly Lungs: Clear to auscultation Clear to percussion Normal respiratory effort, no accessory muscle use Cardiovascular: Heart regular in rate and rhythm, Systolic murmurs, no gallops, or rubs No peripheral edema Abdominal: Soft Nontender, no guarding, rebound or rigidity Abdomen moving with respiration Normoactive bowel sounds No hepatomegaly, No splenomegaly No palpable mass No abdominal wall hernia noted Skin: Normal temperature, tone, texture, turgor No induration No subcutaneous nodules No rash, lesions No ulcers Extremities: No digital cyanosis No clubbing Pedal pulses intact and symmetrical Radial pulses intact and symmetrical No calf tenderness Psychiatric: Alert and oriented to person, place and time Appropriate affect fair judgement Neuro Muscles Strength 5/5 in right upper and lower extremities, 4/5 left upper extremity 3-4 out of 5 left lower extremity Finger-nose exam slight dysmetria over the left upper extremity and left lower extremity had difficulty performing [id number]-pl-[id number] exam compared to the right lower extremity Sensation is decreased to pain over the left upper and lower extremities Cranial nerves II-XII grossly intact Lymphatics: no palpable cervical or supraclavicular , or inguinal lymph nodes Results CBC & Chem 7: 01/15/22 18:03 01/15/22 18:03 Labs: Abnormal Lab Results - Last 24 Hours (Table) 01/15/22 01/15/22 Range/Units 18:03 18:03 D-Dimer 2.70 H (<0.60) mg/L FEU Sodium 136 L (137-145) mmol/L Thrombosis Risk Factor Assmnt - Choose All That Apply Any of the Below Risk Factors Present?: No Each Risk Factor Represents 3 Points: History of DVT/PE Other congenital or acquired thrombophilia - If yes, enter type in comment: No Thrombosis Risk Factor Assessment Total Risk Factor Score: 3 Thrombosis Risk Factor Assessment Level: Moderate Risk Assessment and Plan Assessment: History of multiple sclerosis Presenting with left-sided weakness, suspected to be due to MS exacerbation Check stat computed tomography scan of the brain Neurochecks every 4 hours Neurology consult Patient received 1 g of supplemental in the ED Fall precautions Elevated d-dimer History of protein S and C deficiency with history of venous thromboembolism CT angiogram of the chest done in the ED was negative for acute PE Resume eliquis Xanax for anxiety DVT prophylaxis patient on eliquis Full code Anticipated length of stay less than 2 midnights
[2022-01-16] MEDS: PANTOPRAZOLE 40 MG TABLET PO SCH (08:26)
[2022-01-16] MEDS: CITALOPRAM HYDROBROMIDE 20 MG TAB PO SCH (08:27)
[2022-01-16] MEDS: APIXABAN 5 MG TAB PO SCH ×2 (08:27→21:36)
--- NOTE | 2022-01-16 08:45 | CT ---
EXAMINATION TYPE: CT brain wo con DATE OF EXAM: 01/16/2022 COMPARISON: CT dated 04/16/2020 HISTORY: Left sided weakness. History of MS. CT DLP: 1131.9 mGycm Automated exposure control for dose reduction was used. TECHNIQUE: CT scan of the brain is performed without IV contrast administration. FINDINGS: Bilateral cerebral periventricular and subcortical white matter hypodensities, possibly representing the known MS demyelinating plaques. No acute intracranial hemorrhage. No gross acute cortical infarct. No midline shift, herniation or ve ntriculomegaly. Unremarkable basal cisterns, sella and CP angles. No gross space-occupying lesion, vasogenic edema or mass effect. Unremarkable orbits. Clear visualized paranasal sinuses and mastoid air cells. Unremarkable calvarial bones. IMPRESSION: No acute intracranial abnormality or gross space-occupying lesion by this nonenhanced CT scan. Bilateral cerebral white matter hypodensities as described above, nonspecific and could be related to the known MS. Active lesion cannot be excluded by this CT scan. Recommend further MRI assessment.
[2022-01-16] MEDS: methylPREDNISolone SOD SUCCIN 500 MG in SODIUM CHLORIDE 0.9% 100 ML IVPB SCH (14:41)
--- NOTE | 2022-01-16 17:24 | P.PN ---
Subjective Progress Note Date: 01/16/22 (delayed charting seen at 1245) Principal diagnosis: left leg weakness Patient is a 41-year-old female with multiple sclerosis, protein C and protein S deficiency with history of DVT, chronic back pain, and optic neuritis who presented to the ER with complaints of left-sided weakness and multiple falls. She states she had an episode of left-sided weakness that was treated as an MS flare in August 2021 and that she is currently being evaluated by her neurologist for addition of Ocrevus. CT brain did demonstrate bilateral cerebral white matter hypodensities possibly related to known MS Patient seen and examined at bedside. She reports that she is feeling fidgety. She denies any improvement in her left lower cavity symptoms and she has not been out of bed. She denies any chest pain or shortness of breath at this time. General: nontoxic, no distress, appears at stated age Derm: warm, dry Head: atraumatic, normocephalic, symmetric Eyes: EOMI, no lid lag, anicteric sclera Mouth: no lip lesion, mucus membranes moist Cardiovascular: S1S2 reg, no murmur, positive posterior tibial pulse bilateral, Lungs: CTA bilateral, no rhonchi, no rales , no accessory muscle use Abdominal: soft, nontender to palpation, no guarding, no appreciable organomegaly Ext: no gross muscle atrophy, no edema, no contractures Neuro: CN II-XI grossly intact, weakness noted in left leg with inability to maintain weight lift greater than 30 seconds, + mild clonus and left lower extremity Psych: Alert, oriented, appropriate affect Assessment/plan: Acute exacerbation of multiple sclerosis -Continue Solu-Medrol -Await neurology recommendations -Continue with neuro checks -Add sliding scale insulin, check A1c, follow blood sugars - consult Pt/OT History of venous thromboembolism -Continue with eliquis Home pending clinic course may need 3 days of IV solumedrol depending neuro recs. Objective - Vital Signs Vital signs: Vital Signs Temp 98.7 F 01/16/22 15:00 Pulse 84 01/16/22 15:00 Resp 16 01/16/22 15:00 BP 122/71 01/16/22 15:00 Pulse Ox 96 01/16/22 15:52 FiO2 Intake & Output 01/15/22 01/16/22 01/16/22 18:59 06:59 18:59 Intake Total 298 Balance 298 Weight 86.183 kg 86.183 kg Intake: Oral 298 Other: Voiding Method Toilet # Voids 1 2 - Labs CBC & Chem 7: 01/15/22 18:03 01/15/22 18:03 Labs: Abnormal Lab Results - Last 24 Hours (Table) 01/15/22 01/15/22 Range/Units 18:03 18:03 D-Dimer 2.70 H (<0.60) mg/L FEU Sodium 136 L (137-145) mmol/L
--- NOTE | 2022-01-16 17:34 | P.CNNES ---
History of Present Illness Consult date: 01/16/22 Requesting physician: Joaquin Mcgovern Reason for Consult: MS exacerbation History of Present Illness: Patient is a 41-year-old female came to the hospital by ambulance yesterday at 5:30 PM for chest pain, nausea and generalized weakness. Patient was scheduled for stress test as an outpatient. Patient also has anxiety disorder. Patient was recently seen in Hospital on 09/06/2021 for MS exacerbation. She had presented with visual disturbance, left-sided weakness, ataxia. Patient states that after her treatment, therapy her symptoms improved. She was not using any assistive device. Patient states that her residual symptoms were that she occasionally feels dizzy "here and there" when in shower. He has slig ht weakness in the limbs on the left side, however she was walking fine. She even tried to run once. Patient states her symptoms started about 2 or 3 days ago and yesterday got much worse. She noticed some pain in the certain parts of her left arm when moving, pointing to the left distal upper arm region. Also feeling slightly left arm weakness with numbness. Left leg feels heavy, like a magnet holding it. She was having chest pain, anxiety for which she is following up with Dr. Jackson. Naomy russell states that in the last couple days she has felt many times. She has been feeling dizzy, slightly confusion, like can't find the right words. Patient follows up with Dr. Cardoso her neurologist. She is the process of getting started for Ocrevus, pending insurance authorization. Patient has history of multiple sclerosis, that was diagnosed in 2003. She was at first placed on Avonex, but develops significant side effects. She was on Copaxone but she has not taken it for long time. She has not tried any disease modifying agents. Patient has previous history of optic neuritis involving bilateral eyes. She also has history of vertigo in the past. Patient has smoked half to 1 pack per day since age 16. She stopped smoking in March 2021 and started Vaping, which she ultimately quit in August 2021. Review of Systems All 14 points of review systems reviewed, unremarkable except as mentioned above in detail. Past Medical History Past Medical History: Blood Disorder, Eye Disorder, Neurologic Disorder, Pulmo nary Embolus (PE), Rheumatoid Arthritis (RA), Vascular Disorder Additional Past Medical History / Comment(s): MS, optic neuritis, proficiency C & S disorder, PE/pt cannot recall laterallity, aortic calcification, chin abscess/sepsis, UTI, chronic low back pain/bulging discs, possible ventral hernia, past meth abuse/clean for 7 months. History of Any Multi-Drug Resistant Organisms: MRSA Date of last positivie culture/infection: 06/21/19 [facility] MDRO Source:: Chin Past Surgical History: Appendectomy Additional Past Surgical History / Comment(s): ectopic (2/ L fallopian tube rupture with surgery, R labia abscess/I&D Past Anesthesia/Blood Transfusion Reactions: No Reported Reaction Past Psychological History: Anxiety Additional Psychological History / Comment(s): Pt currently staying at [facility] d/t was homeless and at higher risk to relapse with meth addiction. Past rehab for meth addiction/clean for 7 months. Pt [place] [address], [place] or [place] sister. She is otherwise independent. Smoking Status: Former smoker Past Alcohol Use History: None Reported Additional Past Alcohol Use History / Comment(s): Pt started smoking in 1997 and quit 3 months ago. Past Drug Use History: Methamphetamine Additional Drug Use History / Comment(s): Pt has hx of meth addiction with rehab. She has not used meth in 7 months. - Past Family History Father Family Medical History: No Reported History Mother History Unknown: Yes Medications and Allergies Home Medications Medication Instructions Recorded Confirmed Type Citalopram Hydrobromide [CeleXA] 20 mg PO DAILY 09/06/21 01/15/22 History traZODone HCL [Desyrel] 100 mg PO HS 09/06/21 01/15/22 History Ergocalciferol (Vitamin D2) 1,250 mcg PO MOFR 11/23/21 01/15/22 History [Drisdol (50,000 Iu)] Apixaban [Eliquis] 5 mg PO BID 01/15/22 01/15/22 History Pantoprazole Sodium [Protonix] 40 mg PO DAILY 01/15/22 01/15/22 History Allergies Allergy/AdvReac Type Severity Reaction Status Date / Time vancomycin Allergy Severe Rash/Hives, Verified 01/15/22 18:42 itching, burning Physical Examination - Vital Signs Vital Signs: Vital Signs Temp Pulse Pulse Resp BP BP Pulse Ox 01/16/22 07:00 97.9 F 95 16 113/68 98 01/16/22 02:40 98.3 F 87 18 120/80 97 01/16/22 01:55 98.2 F 83 18 116/80 98 01/15/22 19:48 82 18 109/69 97 01/15/22 17:30 98.4 F 72 16 120/65 98 Intake and Output 01/15/22 01/16/22 01/16/22 22:59 06:59 14:59 Intake Total 118 Balance 118 Intake: Oral 118 Other: Voiding Method Toilet # Voids 1 Weight 86.183 kg 86.183 kg Patient is a middle aged female, in no acute distress. Patient is alert awake oriented to time place and person. Speech and language functions are normal. Attention, concentration and fund of knowledge is adequate. On cranial examination, pupils are round and reacting to light, visual verduzco are full on confrontation, with no neglect on double simultaneous stimulation. Her extraocular muscles are intact with no nystagmus. Face is symmetric, tongue protrudes to the midline. Palatal elevation and sensation normal, hearing and shoulder shrug normal, facial sensation normal. Shoulder shrug normal. Her left arm is braced at the elbow because of IV line. On muscle strength testing, there is no pronator drift and the strength is normal in arms distally and proximally. Left elbow could not be checked very well because of the brace. Her strength in the lower extremity is normal except left hip flexion which is 4. Deep tendon reflexes are (right/left) biceps 1+/1+, brachioradialis 1+/1+, knee 2/2+3, plantar is upgoing bilaterally. Sensory to touch is slightly decreased in the left arm and left leg as compared to the right. Is equal on the face.. Cerebellar function showed mild tremulousness for [id number] testing on the left, but has moderate ataxia for [id number] with the left leg. Tone and bulk of muscles normal. Gait deferred. On general examination, there is no carotid bruit or murmur, S1-S2 audible. Abdomen is soft nontender. No organomegaly, bowel sounds present. Chest is clear. Peripheral pulses are present. No edema. Results - Laboratory Findings CBC and BMP: 01/15/22 18:03 01/15/22 18:03 Abnormal Lab Findings: Abnormal Labs 01/15/22 01/15/22 18:03 18:03 D-Dimer 2.70 H Sodium 136 L Assessment and Plan Assessment: * Probable MS exacerbation. * Recent history of MS exacerbation in August 2021. * Relapsing remitting MS. * History of hypercoagulable state, on long-term anticoagulation Plan: * Patient has received Solu-Medrol 1 g IV PB yesterday. From today she has been started on Solu-Medrol 500 mg IV PB twice a day. We will continue it for 3-5 days based upon response of her symptoms. * Patient was recommended to follow up with her neurologist after above treatment is completed to start disease modifying medication as soon as possible. * DVT prophylaxis: Patient on Eliquis for her history of some hypercoagulable state. Patient follows up with hematology. * Neurology will follow. Thank you for the consult.
[2022-01-16] MEDS: INSULIN ASPART (NovoLOG) 100 UNIT/ML VIAL SQ SCH ×2 (18:13→21:36)
[2022-01-16 21:25] LABS: Glucose,Whole Blood 225 mg/dL (70-110)
[2022-01-16] MEDS: traZODone HCL 100 MG TAB PO SCH (21:36)
[2022-01-16] MEDS ORDERED: ACETAMINOPHEN TAB 325 MG TAB PO PRN (22:04)
[2022-01-17] MEDS: SODIUM CHLORIDE 0.9% 1,000 ML IV SCH (02:58)
[2022-01-17] MEDS: methylPREDNISolone SOD SUCCIN 500 MG in SODIUM CHLORIDE 0.9% 100 ML IVPB SCH ×2 (03:36→15:22)
[2022-01-17 07:30] LABS: Glucose,Whole Blood 159 mg/dL (70-110)
[2022-01-17] MEDS: APIXABAN 5 MG TAB PO SCH ×2 (08:39→19:42)
[2022-01-17] MEDS: CITALOPRAM HYDROBROMIDE 20 MG TAB PO SCH (08:39)
[2022-01-17] MEDS: INSULIN ASPART (NovoLOG) 100 UNIT/ML VIAL SQ SCH ×4 (08:39→21:17)
[2022-01-17] MEDS: PANTOPRAZOLE 40 MG TABLET PO SCH (08:39)
[2022-01-17 12:45] LABS: Glucose,Whole Blood 208 mg/dL (70-110)
--- NOTE | 2022-01-17 14:26 | P.PN ---
Subjective Progress Note Date: 01/17/22 No new complaints. Reports overall improvement. Pending neurology clearance. Gen: awake, alert HEENT: normocephalic, atraumatic, good hearing acuity, moist mucous membranes Resp: good air exchange, breathing comfortably with no accessory muscle use CVS: good distal perfusion x 4, GI: soft, NTTP, ND : no SPT, no CVAT, damian catheter not present MSK: no pitting edema, no clubbing Neuro: non-focal, moving all extremities Psych: cooperative, euthymic mood Assessment/plan: Acute exacerbation of multiple sclerosis -Continue Solu-Medrol -Await neurology recommendations -Continue with neuro checks -Add sliding scale insulin, check A1c, follow blood sugars - consult Pt/OT History of venous thromboembolism -Continue with eliquis Home pending clinic course may need 3 days of IV solumedrol depending neuro recs. Objective - Vital Signs Vital signs: Vital Signs Temp 98.2 F 01/17/22 07:00 Pulse 83 01/17/22 07:00 Resp 17 01/17/22 07:00 BP 114/51 01/17/22 07:00 Pulse Ox 96 01/17/22 07:00 FiO2 Intake & Output 01/16/22 01/17/22 01/17/22 18:59 06:59 18:59 Intake Total 538 402 Balance 538 402 Intake: Oral 538 402 Other: Voiding Method Toilet Toilet Toilet # Voids 2 2 - Labs CBC & Chem 7: 01/15/22 18:03 01/15/22 18:03 Labs: Abnormal Lab Results - Last 24 Hours (Table) 01/16/22 01/17/22 01/17/22 Range/Units 21:18 07:29 12:43 POC Glucose (mg/dL) 225 H 159 H 208 H (70-110) mg/dL
[2022-01-17 17:02] LABS: Glucose,Whole Blood 180 mg/dL (70-110)
[2022-01-17] MEDS: traZODone HCL 100 MG TAB PO SCH (19:42)
[2022-01-17 20:38] LABS: Glucose,Whole Blood 187 mg/dL (70-110)
[2022-01-18] MEDS: methylPREDNISolone SOD SUCCIN 500 MG in SODIUM CHLORIDE 0.9% 100 ML IVPB SCH ×2 (01:43→16:34)
[2022-01-18] MEDS: SODIUM CHLORIDE 0.9% 1,000 ML IV SCH (01:48)
[2022-01-18 07:01] LABS: Glucose,Whole Blood 135 mg/dL (70-110)
[2022-01-18] MEDS: APIXABAN 5 MG TAB PO SCH ×2 (08:00→19:57)
[2022-01-18] MEDS: CITALOPRAM HYDROBROMIDE 20 MG TAB PO SCH (08:01)
[2022-01-18] MEDS: PANTOPRAZOLE 40 MG TABLET PO SCH (08:01)
[2022-01-18] MEDS: INSULIN ASPART (NovoLOG) 100 UNIT/ML VIAL SQ SCH ×4 (08:01→19:57)
[2022-01-18 12:09] LABS: Glucose,Whole Blood 188 mg/dL (70-110)
--- NOTE | 2022-01-18 14:30 | P.PN ---
Subjective Progress Note Date: 01/18/22 No new complaints. Reports overall improvement. Pending neurology clearance. Gen: awake, alert HEENT: normocephalic, atraumatic, good hearing acuity, moist mucous membranes Resp: good air exchange, breathing comfortably with no accessory muscle use CVS: good distal perfusion x 4, GI: soft, NTTP, ND : no SPT, no CVAT, damian catheter not present MSK: no pitting edema, no clubbing Neuro: non-focal, moving all extremities Psych: cooperative, euthymic mood Assessment/plan: Acute exacerbation of multiple sclerosis -Continue Solu-Medrol -Await neurology recommendations -Continue with neuro checks -Add sliding scale insulin, check A1c, follow blood sugars - consult Pt/OT History of venous thromboembolism -Continue with eliquis Home pending clinic course may need 3 days of IV solumedrol depending neuro recs. Objective - Vital Signs Vital signs: Vital Signs Temp 98.2 F 01/18/22 13:12 Pulse 85 01/18/22 13:24 Resp 14 01/18/22 13:24 BP 123/68 01/18/22 13:12 Pulse Ox 94 L 01/18/22 13:12 FiO2 Intake & Output 01/17/22 01/18/22 01/18/22 18:59 06:59 18:59 Intake Total 624 Balance 624 Intake: Oral 624 Other: Voiding Method Toilet Toilet Toilet # Voids 2 2 2 - Labs CBC & Chem 7: 01/15/22 18:03 01/15/22 18:03 Labs: Abnormal Lab Results - Last 24 Hours (Table) 01/17/22 01/17/22 01/18/22 Range/Units 17:00 20:36 06:59 POC Glucose (mg/dL) 180 H 187 H 135 H (70-110) mg/dL 01/18/22 Range/Units 12:07 POC Glucose (mg/dL) 188 H (70-110) mg/dL
--- NOTE | 2022-01-18 15:14 | P.PN ---
Subjective Progress Note Date: 01/17/22 Patient was seen for a follow-up. Patient is laying comfortably in the bed. Patient states she has some chest pain today. I informed patient's primary physician about the chest pain. He will address it. Neurologically patient feels slightly better. Objective - Vital Signs Vital signs: Vital Signs Temp 98.2 F 01/17/22 07:00 Pulse 83 01/17/22 07:00 Resp 17 01/17/22 07:00 BP 114/51 01/17/22 07:00 Pulse Ox 96 01/17/22 07:00 FiO2 Intake & Output 01/16/22 01/17/22 01/17/22 18:59 06:59 18:59 Intake Total 538 402 Balance 538 402 Intake: Oral 538 402 Other: Voiding Method Toilet Toilet Toilet # Voids 2 2 2 - Exam Patient's mental status, speech and language functions are normal. Neurological examination is significant for slightly decreased sensation for touch involving the left side of the body. Patient is less tremulous for [id number] testing on the left as compared to yesterday. Patient has left sided drift but no pronation. Rest of the examination is unchanged. - Labs CBC & Chem 7: 01/15/22 18:03 01/15/22 18:03 Labs: Abnormal Lab Results - Last 24 Hours (Table) 01/16/22 01/17/22 01/17/22 Range/Units 21:18 07:29 12:43 POC Glucose (mg/dL) 225 H 159 H 208 H (70-110) mg/dL Assessment and Plan Assessment: * Probable MS exacerbation. * Recent history of MS exacerbation in August 2021. * Relapsing remitting MS. * History of hypercoagulable state, on long-term anticoagulation with Eliquis Plan: * Patient has received Solu-Medrol 1 g IV PB yesterday. From today she has been started on Solu-Medrol 500 mg IV PB twice a day. Patient wishes to continue Solu-Medrol for a total of 5 days. Thereafter she can be discharged. * Patient was recommended to follow up with her neurologist after above treatment is completed to start disease modifying medication as soon as possible. * DVT prophylaxis: Patient on Eliquis for her history of hypercoagulable state, follows up with hematology. * Dr. Joshua Velásquez will start neurology service from morning and will be available for any neurological concerns over the weekend.
[2022-01-18 16:52] LABS: Glucose,Whole Blood 131 mg/dL (70-110)
[2022-01-18 19:57] LABS: Glucose,Whole Blood 116 mg/dL (70-110)
[2022-01-18] MEDS: traZODone HCL 100 MG TAB PO SCH (19:57)
[2022-01-19] MEDS: SODIUM CHLORIDE 0.9% 1,000 ML IV SCH (00:57)
[2022-01-19] MEDS ORDERED: methylPREDNISolone SOD SUCCIN 500 MG in SODIUM CHLORIDE 0.9% 100 ML IVPB SCH (06:00)
[2022-01-19 06:49] LABS: Glucose,Whole Blood 153 mg/dL (70-110)
[2022-01-19] MEDS: APIXABAN 5 MG TAB PO SCH (08:02)
[2022-01-19] MEDS: CITALOPRAM HYDROBROMIDE 20 MG TAB PO SCH (08:02)
[2022-01-19] MEDS: PANTOPRAZOLE 40 MG TABLET PO SCH (08:02)
[2022-01-19] MEDS: INSULIN ASPART (NovoLOG) 100 UNIT/ML VIAL SQ SCH ×2 (08:02→12:55)
[2022-01-19 11:55] LABS: Glucose,Whole Blood 139 mg/dL (70-110)
[2022-01-19 13:31] VITALS: BP 142/76; PULSE 79; RESP 14; TEMP 98.8
--- NOTE | 2022-01-19 14:26 | P.DS ---
Providers Date of admission: 01/17/22 07:56 Expected date of discharge: 01/19/22 Attending physician: Joaquin Mcgovern MD Consults: 01/16/22 04:43 Consult Physician Routine Consulting Provider: Babak Mari Consult Reason/Comments: MS exacerbation Do you want consulting provider notified?: Yes, Notify in am Primary care physician: [facility] Course: Acute exacerbation of multiple sclerosis History of venous thromboembolism 41-year-old woman with medical history of multiple sclerosis, VTE presented with dizziness, falls, left-sided weakness. In the emergency room, patient is afebrile, 120/65, heart rate 72, 98% on room air. CBC, chemistries are unremarkable. LFTs were unremarkable. Coags were unremarkable. D-dimer was elevated at 2.7. Essential troponin was less than 0.012, trended negative. Chest x-ray showed no acute cardiopulmonary process. Chest CTA was negative for pulmonary embolism. EKG showed normal sinus rhythm. Brain CT showed bilateral cerebral white matter hypodensities, nonspecific. Neurology was consulted, and patient was felt to be an MS exacerbation. She was given 5 days of IV steroids and reported significant clinical improvement. She felt better than her normal baseline on the day of discharge. She'll follow-up with her PCP as well as her neurologist. I spent 33 minutes coordinating this complex discharge Gen: awake, alert HEENT: normocephalic, atraumatic, good hearing acuity, moist mucous membranes Resp: good air exchange, breathing comfortably with no accessory muscle use CVS: good distal perfusion x 4, GI: soft, NTTP, ND : no SPT, no CVAT, damian catheter not present MSK: no pitting edema, no clubbing Neuro: non-focal, moving all extremities Psych: cooperative, euthymic mood Patient Condition at Discharge: Good Plan - Discharge Summary Discharge Rx Participant: No New Discharge Prescriptions: New Acetaminophen Tab [Tylenol] 650 mg PO Q4HR PRN tab PRN Reason: Fever And/ Or Pain Continue traZODone HCL [Desyrel] 100 mg PO HS Apixaban [Eliquis] 5 mg PO BID Citalopram Hydrobromide [CeleXA] 20 mg PO DAILY Ergocalciferol (Vitamin D2) [Drisdol (50,000 Iu)] 1,250 mcg PO MOFR Pantoprazole Sodium [Protonix] 40 mg PO DAILY Discharge Medication List Citalopram Hydrobromide [CeleXA] 20 mg PO DAILY 09/06/21 [History] traZODone HCL [Desyrel] 100 mg PO HS 09/06/21 [History] Ergocalciferol (Vitamin D2) [Drisdol (50,000 Iu)] 1,250 mcg PO MOFR 11/23/21 [History] Apixaban [Eliquis] 5 mg PO BID 01/15/22 [History] Pantoprazole Sodium [Protonix] 40 mg PO DAILY 01/15/22 [History] Acetaminophen Tab [Tylenol] 650 mg PO Q4HR PRN tab 01/19/22 [Rx] Follow up Appointment(s)/Referral(s): Dary La MD [Primary Care Provider] - 1-2 days [facility] Visiting Nurse, [NON-STAFF] - 1 Week Patient Instructions/Handouts: Multiple Sclerosis (GEN)
== END 2022-01-19 14:57 | disposition home or self-care (01) | DRG 59 ==
LOC: EC 17:21 → 6NMEDSUR 01-16 01:43 → OBSVTOIN 01-17 07:56
PROVIDERS: ADMIT Internal Medicine; ATTEND Internal Medicine
DX: G35 Multiple sclerosis (principal); D68.59 Other primary thrombophilia; R07.9 Chest pain, unspecified; F41.9 Anxiety disorder, unspecified; M06.9 Rheumatoid arthritis, unspecified; F15.11 Other stimulant abuse, in remission; M51.86 Other intervertebral disc disorders, lumbar region; R29.6 Repeated falls; I70.0 Atherosclerosis of aorta; K43.9 Ventral hernia without obstruction or gangrene; Z59.01 Sheltered homelessness; Z28.310 Unvaccinated for COVID-19; Z86.711 Personal history of pulmonary embolism; Z86.718 Personal history of other venous thrombosis and embolism; Z87.891 Personal history of nicotine dependence; Z86.14 Personal history of Methicillin resistant Staphylococcus aureus infection; Z86.19 Personal history of other infectious and parasitic diseases; Z86.69 Personal history of other diseases of the nervous system and sense organs; Z79.01 Long term (current) use of anticoagulants; Z79.899 Other long term (current) drug therapy; Z88.1 Allergy status to other antibiotic agents
CPT/HCPCS: 36415; 70450; 71046; 71275; 80053; 83735; 84484; 85025; 85379; 85610; 85730; 93005; 96365; 99285

== ENCOUNTER 2022-04-09 16:35 | Emergency (ER) | payer OTHER ==
[2022-04-09 16:50] VITALS: TEMP 98.9
--- NOTE | 2022-04-09 17:26 | ED ---
General Adult HPI - General Chief complaint: Altered Mental Status Stated complaint: Left side weakness Time Seen by Provider: 04/09/22 16:51 Source: patient Mode of arrival: wheelchair Limitations: no limitations - History of Present Illness Initial comments: Dictation was produced using [employer] dictation software. please excuse any grammatical, word or spelling errors. Chief Complaint: 41-year-old female presents emergency department for confusion History of Present Illness: A 41-year-old female she states she was diagnosed with multiple sclerosis earlier this year. Patient states that she was told that she has worsening lesions through her [employer] SERV[employer]ORDINATOR secondary to multiple sclerosis per she sees a Dr. Cardoso who is a neurologist that manages her multiple sclerosis. Patient currently not on any medications for this. She has not received any infusions for this either. Patient states that she was on the bus today and didn't remember where she was going. States that it took several minutes for reorient herself. Patient states that she's been having intermittent episodes of paresthesias to the extremities states that this is typical of her MS pathology. Today be evaluated for confusion. She was full 7 appointment with her neurologist yesterday but couldn't make her appointment because she did not have a ride. She was able to reschedule however is not until May. The ROS documented in this emergency department record has been reviewed and confirmed by me. Those systems with pertinent positive or negative responses have been documented in the HPI. All other systems are other negative and/or noncontributory. PHYSICAL EXAM: General Impression: Alert and oriented x3, not in acute distress HEENT: Normocephalic atraumatic, extra-ocular movements intact, pupils equal and reactive to light bilaterally, mucous membranes moist. Cardiovascular: Heart regular rate and rhythm Chest: Able to complete full sentences, no retractions, no tachypnea Abdomen: abdomen soft, non-tender, non-distended, no organomegaly Musculoskeletal: Pulses present and equal in all extremities, no peripheral edema Motor: no focal deficits noted Neurological: CN II-XII grossly intact, no focal motor or sensory deficits noted Skin: Intact with no visualized rashes Psych: Normal affect and mood ED course: 41 Year-old well-appearing female presents emergency department for chief complaint of confusion. Patient allegedly has extensive history of multiple sclerosis with which she reports as worsening lesions throughout the CN S. Is well-appearing at the bedside. Her neurologic is unremarkable. Vital signs upon arrival are within acceptable limits. Patient is not confused she is alert and oriented 4 in no acute distress. Spoke with Dr. Cardoso was patient's neurologist. Discussed in detail why patient arrives in the emergency department today and her physical examination. It appears felt like patient did not need any sort of urgent treatment. He did recommend doing a urinalysis and to treat accordingly. He did recommend the patient call Dr. Cardoso's medical malpractice paralegal, Annie for a sooner appointment. Patient asked the nurse to take a look at a wound on her Botox. Patient also X was evaluated she had a large cellulitic area to the left gluteal cleft area. It was opened to drainage. There is some surrounding erythema. Bony care bedside ultrasound did not reveal any satellite fluid collections that required drainage. The drainage was extended with incision. Cavitary lesion was irrigated with sterile water. Wound was packed with iodoform gauze. Auditory evaluation obtained. CBC shows mild leukocytosis 12.7. Metabolic panel is unremarkable. For panel PCR is negative. Patient reevaluated at bedside at 7:23 PM finally been stable medical condition. Patient given a dose of Keflex and Bactrim. She is also given a starter pack along with a prescription. She is strongly advised to follow-up soon as possible with her neurologist. Patient is agreeable with discharge. Advised follow-up with primary care doctor regarding her cellulitic symptoms. - Related Data Home Medications Medication Instructions Recorded Confirmed Citalopram Hydrobromide [CeleXA] 20 mg PO DAILY 09/06/21 01/15/22 traZODone HCL [Desyrel] 100 mg PO HS 09/06/21 01/15/22 Ergocalciferol (Vitamin D2) 1,250 mcg PO MOFR 11/23/21 01/15/22 [Drisdol (50,000 Iu)] Apixaban [Eliquis] 5 mg PO BID 01/15/22 01/15/22 Pantoprazole Sodium [Protonix] 40 mg PO DAILY 01/15/22 01/15/22 Previous Rx's Medication Instructions Recorded Acetaminophen Tab [Tylenol] 650 mg PO Q4HR PRN tab 01/19/22 Cephalexin [Keflex] 500 mg PO Q6HR 5 Days #20 cap 04/09/22 Sulfamethox-Tmp 800-160Mg [Bactrim 1 tab PO Q12HR 5 Days #10 tab 04/09/22 DS 800-160 mg] Allergies Allergy/AdvReac Type Severity Reaction Status Date / Time vancomycin Allergy Severe Rash/Hives, Verified 04/09/22 16:50 itching, burning Review of Systems ROS Statement: Those systems with pertinent positive or pertinent negative responses have been documented in the HPI. ROS Other: All systems not noted in ROS Statement are negative. Past Medical History Past Medical History: Blood Disorder, Eye Disorder, Neurologic Disorder, Pulmonary Embolus (PE), Rheumatoid Arthritis (RA), Vascular Disorder Additional Past Medical History / Comment(s): MS, optic neuritis, proficiency C & S disorder, PE/pt cannot recall laterallity, aortic calcification, chin abscess/sepsis, UTI, chronic low back pain/bulging discs, possible ventral hernia, past meth abuse/clean for 7 months. History of Any Multi-Drug Resistant Organisms: MRSA Date of last positivie culture/infection: 06/21/19 [facility] MDRO Source:: Chin Past Surgical History: Appendectomy Additional Past Surgical History / Comment(s): ectopic (2/ L fallopian tube rupture with surgery, R labia abscess/I&D Past Anesthesia/Blood Transfusion Reactions: No Reported Reaction Past Psychological History: Anxiety Smoking Status: Former smoker Past Alcohol Use History: None Reported Past Drug Use History: Methamphetamine - Past Family History Father Family Medical History: No Reported History Mother History Unknown: Yes General Exam Limitations: no limitations Course Vital Signs 04/09/22 16:44 Temperature 98.9 F Pulse Rate 109 H Respiratory 16 Rate Blood Pressure 122/78 O2 Sat by Pulse 98 Oximetry Procedures - Incision & Drainage Consent Obtained: verbal consent, written consent Site: buttock Anesthetic Used: lidocaine 1% Sterile Field Used?: No Scalpel Used: #11 Needle Aspiration Performed?: No Irrigation Performed?: Yes I&D Drainage Obtained: Pus, Blood Culture Obtained?: Yes Complications: pain Patient Tolerated Procedure: well Medical Decision Making - Lab Data Result diagrams: 04/09/22 17:26 04/09/22 17:26 Lab Results 04/09/22 04/09/22 04/09/22 Range/Units 17:26 17:26 18:14 WBC 12.7 H (3.8-10.6) k/uL RBC 3.73 L (3.80-5.40) m/uL Hgb 10.7 L (11.4-16.0) gm/dL Hct 34.0 (34.0-46.0) % MCV 91.2 (80.0-100.0) fL MCH 28.6 (25.0-35.0) pg MCHC 31.4 (31.0-37.0) g/dL RDW 13.2 (11.5-15.5) % Plt Count 352 (150-450) k/uL MPV 7.4 Neutrophils % 69 % Lymphocytes % 24 % Monocytes % 4 % Eosinophils % 2 % Basophils % 0 % Neutrophils # 8.8 H (1.3-7.7) k/uL Lymphocytes # 3.0 (1.0-4.8) k/uL Monocytes # 0.5 (0-1.0) k/uL Eosinophils # 0.2 (0-0.7) k/uL Basophils # 0.1 (0-0.2) k/uL Sodium 137 (137-145) mmol/L Potassium 3.5 (3.5-5.1) mmol/L Chloride 102 (98-107) mmol/L Carbon Dioxide 21 L (22-30) mmol/L Anion Gap 14 mmol/L BUN 11 (7-17) mg/dL Creatinine 0.58 (0.52-1.04) mg/dL Est GFR (CKD-EPI)AfAm >90 (>60 ml/min/1.73 sqM) Est GFR (CKD-EPI)NonAf >90 (>60 ml/min/1.73 sqM) Glucose 85 (74-99) mg/dL Calcium 8.7 (8.4-10.2) mg/dL Influenza Type A (PCR) Not Detected (Not Detectd) Influenza Type B (PCR) Not Detected (Not Detectd) RSV (PCR) Not Detected (Not Detectd) SARS-CoV-2 (PCR) Not Detected (Not Detectd) Disposition Clinical Impression: Cellulitis, Multiple sclerosis Disposition: HOME SELF-CARE Condition: Fair Instructions (If sedation given, give patient instructions): Cellulitis (ED) Additional Instructions: Follow-up with her neurologist regarding your MS symptoms. Prescriptions: Sulfamethox-Tmp 800-160Mg [Bactrim DS 800-160 mg] 1 tab PO Q12HR 5 Days #10 tab Cephalexin [Keflex] 500 mg PO Q6HR 5 Days #20 cap Is patient prescribed a controlled substance at d/c from ED?: No Referrals: None,Stated [REFERRING] - 1-2 days Time of Disposition: 19:24
[2022-04-09 17:38] LABS: Basophils # (A) 0.1 k/uL (0-0.2); Basophils % (A) 0 %; Eosinophils # (A) 0.2 k/uL (0-0.7); Eosinophils % (A) 2 %; HGB 10.7 gm/dL (11.4-16.0); Lymphocytes % (A) 24 %; MCH 28.6 pg (25.0-35.0); MCHC 31.4 g/dL (31.0-37.0); MCV 91.2 fL (80.0-100.0); Mean Platelet Volume 7.4; Monocytes # (A) 0.5 k/uL (0-1.0); Monocytes % (A) 4 %; Neutrophils # (A) 8.8 k/uL (1.3-7.7); Neutrophils % (A) 69 %; Platelet Count 352 k/uL (150-450); RBC 3.73 m/uL (3.80-5.40); RDW 13.2 % (11.5-15.5); WBC 12.7 k/uL (3.8-10.6)
[2022-04-09 17:51] LABS: African American GFR (CKD) >90 (>60 ml/min/1.73 sqM); Anion Gap 14 mmol/L; Blood Urea Nitrogen 11 mg/dL (7-17); Calcium 8.7 mg/dL (8.4-10.2); Carbon Dioxide 21 mmol/L (22-30); Chloride 102 mmol/L (98-107); Glucose 85 mg/dL (74-99); Non-African American GFR(CKD) >90 (>60 ml/min/1.73 sqM); Potassium 3.5 mmol/L (3.5-5.1); Sodium 137 mmol/L (137-145)
[2022-04-09] MEDS ORDERED: LIDOCAINE 1%-EPI 1:100,000 20 ML VIAL SQ STA (18:28)
[2022-04-09] MEDS ORDERED: LIDOCAINE 1% INJ 10MG/ML (20 ML MDV) SQ ONE (18:33)
[2022-04-09] MEDS ORDERED: SULFAMETHOX-TMP 800-160MG 1 EACH TAB PO STA (19:15)
[2022-04-09] MEDS ORDERED: CEPHALEXIN 500 MG CAP PO STA (19:15)
[2022-04-09] MEDS ORDERED: CEPHALEXIN 500MG STARTER PACK 4 CAP BTL PO STA (19:22)
[2022-04-09] MEDS ORDERED: SULFAMETH-TMP DS STARTER PACK 2 TAB BTL PO STA (19:22)
[2022-04-09 19:39] VITALS: BP 129/66; PULSE 71; RESP 15
== END 2022-04-09 19:47 | disposition home or self-care (01) ==
LOC: EC 16:35
DX: L03.317 Cellulitis of buttock (principal); G35 Multiple sclerosis; I26.99 Other pulmonary embolism without acute cor pulmonale; M06.9 Rheumatoid arthritis, unspecified; F41.9 Anxiety disorder, unspecified; Z79.83 Long term (current) use of bisphosphonates; Z88.1 Allergy status to other antibiotic agents; Z87.891 Personal history of nicotine dependence; Z20.822 Contact with and (suspected) exposure to COVID-19
CPT/HCPCS: 99284; 10060; 36415; 80048; 85025; 87070; 87205; 87636; J2001; 87077; 87186

== ENCOUNTER 2022-07-05 19:49 | Emergency (ER) | payer OTHER ==
[2022-07-05 19:56] VITALS: RESP 16; TEMP 97.5
[2022-07-05] MEDS ORDERED: SODIUM CHLORIDE 0.9% 500 ML 500 ML IV STA (20:11)
[2022-07-05 20:45] LABS: Basophils # (A) 0.1 k/uL (0-0.2); Basophils % (A) 1 %; Eosinophils # (A) 0.2 k/uL (0-0.7); Eosinophils % (A) 3 %; HCT 35.8 % (34.0-46.0); HGB 11.9 gm/dL (11.4-16.0); Lymphocytes # (A) 2.4 k/uL (1.0-4.8); Lymphocytes % (A) 33 %; MCH 29.7 pg (25.0-35.0); MCHC 33.3 g/dL (31.0-37.0); MCV 89.2 fL (80.0-100.0); Mean Platelet Volume 7.5; Monocytes # (A) 0.6 k/uL (0-1.0); Monocytes % (A) 7 %; Neutrophils % (A) 54 %; Platelet Count 336 k/uL (150-450); RBC 4.01 m/uL (3.80-5.40); RDW 13.1 % (11.5-15.5); WBC 7.5 k/uL (3.8-10.6)
[2022-07-05 21:01] LABS: ALT 19 U/L (4-34); AST 19 U/L (14-36); African American GFR (CKD) >90 (>60 ml/min/1.73 sqM); Albumin 3.7 g/dL (3.5-5.0); Alkaline Phosphatase 48 U/L (38-126); Anion Gap 6 mmol/L; Blood Urea Nitrogen 8 mg/dL (7-17); Calcium 8.4 mg/dL (8.4-10.2); Carbon Dioxide 21 mmol/L (22-30); Chloride 109 mmol/L (98-107); Glucose 110 mg/dL (74-99); Non-African American GFR(CKD) >90 (>60 ml/min/1.73 sqM); Potassium 4.4 mmol/L (3.5-5.1); Sodium 136 mmol/L (137-145); Total Bilirubin 0.2 mg/dL (0.2-1.3); Total Protein 6.4 g/dL (6.3-8.2)
--- NOTE | 2022-07-06 00:32 | ED ---
GI Bleed HPI - General Chief complaint: GI Bleed Stated complaint: Blood in stool-Sent by PCP Time Seen by Provider: 07/05/22 20:02 Source: patient Mode of arrival: ambulatory Limitations: no limitations - History of Present Illness Initial comments: This patient is a 41-year-old woman presenting to be evaluated for diarrhea and abdominal discomfort. Patient states that she has been having trouble with diarrhea going back a number of weeks possibly up to 2 months now. She did go to [facility] little over a week ago for this same problem. She states that while she was there they performed computed tomography scan. They performed lab tests. She was diagnosed with colitis and given a course of ciprofloxacin and metronidazole which she has completed. She states that these did slow the diarrhea and she now has slightly formed stools. patient is concerned as she has noted some blood with wiping. There is no melena or blood mixed in the stool. She does have some diffuse migratory discomfort. MD complaint: blood on toilet paper -: days(s) Radiation: none Quality: cramping, burning Consistency: intermittent Improves with: none Worsens with: none Associated Symptoms: denies other symptoms - Related Data Home Medications Medication Instructions Recorded Confirmed traZODone HCL [Desyrel] 100 mg PO HS 09/06/21 07/05/22 Apixaban [Eliquis] 5 mg PO BID 01/15/22 07/05/22 Cholecalciferol [Vitamin D3 (25 50 mcg PO DAILY 07/05/22 07/05/22 Mcg = 1000 Iu)] Citalopram Hydrobromide [CeleXA] 40 mg PO DAILY 07/05/22 07/05/22 Fluticasone Nasal [place] [Flonase 1 spray EA NOSTRIL DAILY PRN 07/05/22 07/05/22 Nasal [place]] Gabapentin [Neurontin] 100 mg PO HS 07/05/22 07/05/22 Ondansetron Odt [Zofran Odt] 4 mg PO Q8HR PRN 07/05/22 07/05/22 hydrOXYzine pamoate [hydrOXYzine 25 mg PO TID 07/05/22 07/05/22 PAMOATE] metroNIDAZOLE [Flagyl] 500 mg PO TID 07/05/22 07/05/22 polyethylene glycoL 3350 [Miralax] 17 gm PO DAILY PRN 07/05/22 07/05/22 Previous Rx's Medication Instructions Recorded Omeprazole [PriLOSEC] 40 mg PO DAILY #14 cap 07/06/22 Allergies Allergy/AdvReac Type Severity Reaction Status Date / Time vancomycin Allergy Severe Rash/Hives, Verified 07/05/22 21:36 itching, burning Review of Systems ROS Statement: Those systems with pertinent positive or pertinent negative responses have been documented in the HPI. ROS Other: All systems not noted in ROS Statement are negative. Constitutional: Denies: fever, chills, weakness Respiratory: Denies: cough, dyspnea Cardiovascular: Denies: chest pain, palpitations, edema, syncope Gastrointestinal: Reports: as per HPI, abdominal pain, diarrhea. Denies: nausea, vomiting, constipation, hematemesis Genitourinary: Denies: dysuria, hematuria Musculoskeletal: Denies: back pain Skin: Denies: rash Neurological: Denies: headache, weakness Past Medical History Past Medical History: Blood Disorder, Eye Disorder, Neurologic Disorder, Pulmonary Embolus (PE), Rheumatoid Arthritis (RA), Vascular Disorder Additional Past Medical History / Comment(s): MS, optic neuritis, proficiency C & S disorder, PE/pt cannot recall laterallity, aortic calcification, chin abscess/sepsis, UTI, chronic low back pain/bulging discs, possible ventral hernia, past meth abuse/clean for 7 months. History of Any Multi-Drug Resistant Organisms: MRSA Date of last positivie culture/infection: 04/09/22 MDRO Source:: Buttock Past Surgical History: Appendectomy Additional Past Surgical History / Comment(s): ectopic (2/ L fallopian tube rupture with surgery, R labia abscess/I&D Past Anesthesia/Blood Transfusion Reactions: No Reported Reaction Past Psychological History: Anxiety Smoking Status: Former smoker Past Alcohol Use History: None Reported Past Drug Use History: Methamphetamine - Past Family History Father Family Medical History: No Reported History Mother History Unknown: Yes General Exam Limitations: no limitations General appearance: alert, in no apparent distress Head exam: Present: atraumatic, normocephalic Eye exam: Present: normal appearance. Absent: scleral icterus, conjunctival injection ENT exam: Present: normal oropharynx Neck exam: Present: normal inspection Respiratory exam: Present: normal lung sounds bilaterally. Absent: respiratory distress, wheezes, rales, rhonchi, stridor Cardiovascular Exam: Present: regular rate, normal rhythm, normal heart sounds. Absent: systolic murmur, diastolic murmur, rubs, gallop GI/Abdominal exam: Present: soft. Absent: distended, tenderness, guarding, rebound, rigid, mass Extremities exam: Present: normal inspection, normal capillary refill. Absent: pedal edema, calf tenderness Back exam: Present: normal inspection. Absent: CVA tenderness (R), CVA tenderness (L) Neurological exam: Present: alert Skin exam: Present: warm, dry, intact, normal color. Absent: rash Course Vital Signs 07/05/22 07/06/22 19:52 00:47 Temperature 97.5 F L Pulse Rate 98 84 Respiratory 16 16 Rate Blood Pressure 115/75 129/79 O2 Sat by Pulse 99 99 Oximetry Medical Decision Making - Medical Decision Making Patient's 41-year-old woman presenting with some abdominal pains and blood with wiping after bowel movement. I suspect that there continues to be component of colitis. Patient does test negative for C. difficile here. Cultures are sent, and will have patient follow with gastroenterology to have scope for definitive diagnosis. We discussed the appropriate further care and follow-up as well as return parameters. - Lab Data Result diagrams: 07/05/22 20:37 07/05/22 20:37 Lab Results 07/05/22 07/05/22 07/05/22 Range/Units 20:37 20:37 22:20 WBC 7.5 (3.8-10.6) k/uL RBC 4.01 (3.80-5.40) m/uL Hgb 11.9 (11.4-16.0) gm/dL Hct 35.8 (34.0-46.0) % MCV 89.2 (80.0-100.0) fL MCH 29.7 (25.0-35.0) pg MCHC 33.3 (31.0-37.0) g/dL RDW 13.1 (11.5-15.5) % Plt Count 336 (150-450) k/uL MPV 7.5 Neutrophils % 54 % Lymphocytes % 33 % Monocytes % 7 % Eosinophils % 3 % Basophils % 1 % Neutrophils # 4.0 (1.3-7.7) k/uL Lymphocytes # 2.4 (1.0-4.8) k/uL Monocytes # 0.6 (0-1.0) k/uL Eosinophils # 0.2 (0-0.7) k/uL Basophils # 0.1 (0-0.2) k/uL Sodium 136 L (137-145) mmol/L Potassium 4.4 (3.5-5.1) mmol/L Chloride 109 H (98-107) mmol/L Carbon Dioxide 21 L (22-30) mmol/L Anion Gap 6 mmol/L BUN 8 (7-17) mg/dL Creatinine 0.79 (0.52-1.04) mg/dL Est GFR (CKD-EPI)AfAm >90 (>60 ml/min/1.73 sqM) Est GFR (CKD-EPI)NonAf >90 (>60 ml/min/1.73 sqM) Glucose 110 H (74-99) mg/dL Calcium 8.4 (8.4-10.2) mg/dL Total Bilirubin 0.2 (0.2-1.3) mg/dL AST 19 (14-36) U/L ALT 19 (4-34) U/L Alkaline Phosphatase 48 (38-126) U/L Total Protein 6.4 (6.3-8.2) g/dL Albumin 3.7 (3.5-5.0) g/dL Urine HCG, Qual (Not Detectd) Stool Occult Blood Positive H (Negative) C. difficile (EIA) Intrp (Negative) 07/05/22 07/05/22 Range/Units 22:20 22:20 WBC (3.8-10.6) k/uL RBC (3.80-5.40) m/uL Hgb (11.4-16.0) gm/dL Hct (34.0-46.0) % MCV (80.0-100.0) fL MCH (25.0-35.0) pg MCHC (31.0-37.0) g/dL RDW (11.5-15.5) % Plt Count (150-450) k/uL MPV Neutrophils % % Lymphocytes % % Monocytes % % Eosinophils % % Basophils % % Neutrophils # (1.3-7.7) k/uL Lymphocytes # (1.0-4.8) k/uL Monocytes # (0-1.0) k/uL Eosinophils # (0-0.7) k/uL Basophils # (0-0.2) k/uL Sodium (137-145) mmol/L Potassium (3.5-5.1) mmol/L Chloride (98-107) mmol/L Carbon Dioxide (22-30) mmol/L Anion Gap mmol/L BUN (7-17) mg/dL Creatinine (0.52-1.04) mg/dL Est GFR (CKD-EPI)AfAm (>60 ml/min/1.73 sqM) Est GFR (CKD-EPI)NonAf (>60 ml/min/1.73 sqM) Glucose (74-99) mg/dL Calcium (8.4-10.2) mg/dL Total Bilirubin (0.2-1.3) mg/dL AST (14-36) U/L ALT (4-34) U/L Alkaline Phosphatase (38-126) U/L Total Protein (6.3-8.2) g/dL Albumin (3.5-5.0) g/dL Urine HCG, Qual Not Detected (Not Detectd) Stool Occult Blood (Negative) C. difficile (EIA) Intrp Negative (Negative) Disposition Clinical Impression: Colitis Disposition: HOME SELF-CARE Condition: Good Instructions (If sedation given, give patient instructions): Gastrointestinal Bleeding (ED) Prescriptions: Omeprazole [PriLOSEC] 40 mg PO DAILY #14 cap Is patient prescribed a controlled substance at d/c from ED?: No Referrals: Dary La MD [Primary Care Provider] - 1-2 days
[2022-07-06 00:49] VITALS: BP 129/79; PULSE 84
== END 2022-07-06 00:49 | disposition home or self-care (01) ==
LOC: EC 19:49
DX: K52.9 Noninfective gastroenteritis and colitis, unspecified (principal); F41.9 Anxiety disorder, unspecified; Z88.1 Allergy status to other antibiotic agents; Z87.891 Personal history of nicotine dependence
CPT/HCPCS: 36415; 80053; 81025; 82272; 83630; 85025; 87045; 87046; 87324; 99284

== ENCOUNTER 2022-08-10 14:39 | Inpatient (IN) | payer OTHER ==
[2022-08-10] MEDS ORDERED: SODIUM CHLORIDE 0.9% 1,000 ML IV STA (15:11)
[2022-08-10] MEDS ORDERED: HYDROmorphone 0.5 MG/0.5 ML SYRINGE IVP STA (15:12)
[2022-08-10 15:32] LABS: Basophils # (A) 0.1 k/uL (0-0.2); Basophils % (A) 1 %; Eosinophils # (A) 0.2 k/uL (0-0.7); Eosinophils % (A) 2 %; HCT 36.7 % (34.0-46.0); HGB 12.1 gm/dL (11.4-16.0); Lymphocytes # (A) 1.9 k/uL (1.0-4.8); Lymphocytes % (A) 22 %; MCH 28.7 pg (25.0-35.0); MCHC 33.1 g/dL (31.0-37.0); MCV 86.9 fL (80.0-100.0); Mean Platelet Volume 7.8; Monocytes # (A) 0.5 k/uL (0-1.0); Monocytes % (A) 5 %; Neutrophils # (A) 5.9 k/uL (1.3-7.7); Neutrophils % (A) 69 %; Platelet Count 307 k/uL (150-450); RBC 4.22 m/uL (3.80-5.40); RDW 12.6 % (11.5-15.5); WBC 8.6 k/uL (3.8-10.6)
[2022-08-10 15:43] LABS: Potassium 4.1 mmol/L (3.5-5.1)
[2022-08-10] MEDS ORDERED: METOCLOPRAMIDE 5 MG/ML 2 ML VIAL IVP STA (15:43)
[2022-08-10 15:44] LABS: ALT 25 U/L (4-34); AST 22 U/L (14-36); African American GFR (CKD) >90 (>60 ml/min/1.73 sqM); Albumin 3.9 g/dL (3.5-5.0); Alkaline Phosphatase 58 U/L (38-126); Anion Gap 6 mmol/L; Blood Urea Nitrogen 12 mg/dL (7-17); Calcium 8.5 mg/dL (8.4-10.2); Carbon Dioxide 23 mmol/L (22-30); Chloride 109 mmol/L (98-107); Glucose 115 mg/dL (74-99); Non-African American GFR(CKD) >90 (>60 ml/min/1.73 sqM); Sodium 138 mmol/L (137-145); Total Bilirubin 0.2 mg/dL (0.2-1.3); Total Protein 6.9 g/dL (6.3-8.2)
--- NOTE | 2022-08-10 15:45 | ED ---
Fall HPI - General Chief Complaint: Fall Stated Complaint: Multiple Falls, has MS Time Seen by Provider: 08/10/22 15:00 Source: patient Mode of arrival: ambulatory - History of Present Illness Initial Comments: Patient is a 41-year-old female who presents to the emergency department for evaluation of multiple falls. Patient has history of multiple sclerosis, feeling like she is having a flareup. Over the past few weeks she has endorsed extremity weakness with intermittent falls. Patient feels dizzy as if the room is spinning and has to hold onto things to avoid falling. Patient fell twice today-once while walking out of her bedroom and the other while walking down steps of her home. She did not lose consciousness and does not recall definitive head injury however states her neck feels tense and that she has brain fog regarding the incident. No blood thinner use. Patient also reports left hip and left forearm pain. She denies numbness and tingling of the extre mities. Denies urinary retention, incontinence constipation. Does admit to blurred vision unchanged from her chronic blurry vision, states she has optic neuritis. Her neurologist is Dr. Cardoso. Patient currently on immunosuppression therapy. No fever, chills, chest pain, shortness of breath, abdominal pain, nausea, vomiting, burning with urination - Related Data Home Medications Medication Instructions Recorded Confirmed traZODone HCL [Desyrel] 100 mg PO HS 09/06/21 08/10/22 Apixaban [Eliquis] 5 mg PO BID 01/15/22 08/10/22 Cholecalciferol [Vitamin D3 (25 50 mcg PO DAILY 07/05/22 08/10/22 Mcg = 1000 Iu)] Citalopram Hydrobromide [CeleXA] 40 mg PO DAILY 07/05/22 08/10/22 Fluticasone Nasal [place] [Flonase 2 spr EA NOSTRIL DAILY PRN 07/05/22 08/10/22 Nasal [place]] Gabapentin [Neurontin] 100 mg PO BID 07/05/22 08/10/22 Ondansetron Odt [Zofran Odt] 4 mg PO Q8HR PRN 07/05/22 08/10/22 hydrOXYzine pamoate [hydrOXYzine 25 mg PO TID 07/05/22 08/10/22 PAMOATE] polyethylene glycoL 3350 [Miralax] 17 gm PO DAILY PRN 07/05/22 08/10/22 Dicyclomine [Bentyl] 20 mg PO TID 08/10/22 08/10/22 busPIRone HCl [Buspar] 10 mg PO TID 08/10/22 08/10/22 Allergies Allergy/AdvReac Type Severity Reaction Status Date / Time vancomycin Allergy Severe Rash/Hives, Verified 08/10/22 18:26 itching, burning Review of Systems ROS Statement: Those systems with pertinent positive or pertinent negative responses have been documented in the HPI. ROS Other: All systems not noted in ROS Statement are negative. Past Medical History Past Medical History: Blood Disorder, Eye Disorder, Neurologic Disorder, Pulmonary Embolus (PE), Rheumatoid Arthritis (RA), Vascular Disorder Additional Past Medical History / Comment(s): MS, optic neuritis, proficiency C & S disorder, PE/pt cannot recall laterallity, aortic calcification, chin abscess/sepsis, UTI, chronic low back pain/bulging discs, possible ventral hernia, past meth abuse/clean for 7 months. History of Any Multi-Drug Resistant Organisms: MRSA Date of last positivie culture/infection: 04/09/22 MDRO Source:: Buttock Past Surgical History: Appendectomy Additional Past Surgical History / Comment(s): ectopic (2/ L fallopian tube rupture with surgery, R labia abscess/I&D Past Anesthesia/Blood Transfusion Reactions: No Reported Reaction Past Psychological History: Anxiety Smoking Status: Former smoker Past Alcohol Use History: None Reported Past Drug Use History: Methamphetamine - Past Family History Father Family Medical History: No Reported History Mother History Unknown: Yes General Exam Limitations: no limitations General appearance: alert, in no apparent distress Head exam: Present: atraumatic, normocephalic, normal inspection Eye exam: Present: normal appearance, PERRL, EOMI. Absent: scleral icterus, conjunctival injection, periorbital swelling Neck exam: Present: normal inspection, tenderness (Paravertebral, bilateral). Absent: meningismus, lymphadenopathy Respiratory exam: Present: normal lung sounds bilaterally. Absent: respiratory distress, wheezes, rales, rhonchi, stridor Cardiovascular Exam: Present: regular rate, normal rhythm, normal heart sounds. Absent: systolic murmur, diastolic murmur, rubs, gallop, clicks Extremities exam: Present: normal inspection, full ROM, normal capillary refill. Absent: tenderness Neurological exam: Present: alert, oriented X3, CN II-XII intact Psychiatric exam: Present: normal affect, normal mood Skin exam: Present: warm, dry, intact, normal color. Absent: rash Course Vital Signs 08/10/22 08/10/22 08/10/22 14:48 15:57 16:47 Temperature 97.6 F Pulse Rate 87 78 72 Respiratory 18 18 18 Rate Blood Pressure 166/77 130/78 113/73 O2 Sat by Pulse 97 98 96 Oximetry Medical Decision Making - Medical Decision Making Was pt. sent in by a medical professional or institution (, PA, FAMILY COURT REGISTRAR, urgent care, hospital, or alf...) When possible be specific @ -[No] Did you speak to anyone other than the patient for history (EMS, parent, family, police, friend...)? What history was obtained from this source @ -[No] Did you review nursing and triage notes (agree or disagree)? Why? @ -[I reviewed and agree with nursing and triage notes] Were old charts reviewed (outside hosp., previous admission, EMS record, old EKG, old radiological studies, urgent care reports/EKG's, alf records)? Report findings @ -[No old charts were reviewed] Differential Diagnosis (chest pain, altered mental status, abdominal pain women, abdominal pain men, vaginal bleeding, weakness, fever, dyspnea, syncope, headache, dizziness, GI bleed, back pain, seizure, CVA, palpatations, mental health)? @ -Differential Weakness: Hypoglycemia, shock, sepsis, hyponatremia, anemia, infection, SC, ETOH, adverse medicine reaction, overdose, stroke, this is not meant to be an all-inclusive list. EKG interpreted by me (3pts min.). @ -[As above] X-rays interpreted by me (1pt min.). @ -Yes, left hip/pelvis and left forearm xray negative for acute process. CT interpreted by me (1pt min.). @ Yes, CT of the brain and C-spine without contrast negative for acute process U/S interpreted by me (1pt. min.). @ -[None done] What testing was considered but not performed or refused? (CT, X-rays, U/S, labs)? Why? @ -[None] What meds were considered but not given or refused? Why? @ -[None] Did you discuss the management of the patient with other professionals (professionals i.e. , PA, FAMILY COURT REGISTRAR, lab, RT, psych nurse, social insurance administrator, rubber cutter and shape carver, teacher, branch officer, family independence case manager)? Give summary @ -Yes, Dr. Peña who accepted admission Was smoking cessation discussed for >3mins.? @ -[No] Was critical care preformed (if so, how long)? @ -[No] Were there social determinants of health that impacted care today? How? (Homelessness, low income, unemployed, alcoholism, drug addiction, transportation, low edu. Level, literacy, decrease access to med. care, skilled nursing, rehab)? @ -[No] Was there de-escalation of care discussed even if they declined (Discuss DNR or withdrawal of care, Hospice)? DNR status @ -[No] What co-morbidities impacted this encounter? (DM, HTN, Smoking, COPD, CAD, Cancer, CVA, ARF, Chemo, Hep., AIDS, mental health diagnosis, sleep apnea, morbid obesity)? @ -[None] Was patient admitted / discharged? Hospital course, mention meds given and route, prescriptions, significant lab abnormalities, going to OR and other pertinent info. @ Admitted. Patient will be admitted for neurology evaluation Undiagnosed new problem with uncertain prognosis? @ -[No] Drug Therapy requiring intensive monitoring for toxicity (Heparin, Nitro, Insulin, Cardizem)? @ -[No] Were any procedures done? @ -[No] Diagnosis/symptom? @ -recurrent falls Acute, or Chronic, or Acute on Chronic? @ -acute Uncomplicated (without systemic symptoms) or Complicated (systemic symptoms)? @ -uncomplicated Side effects of treatment? @ -[No] Exacerbation, Progression, or Severe Exacerbation? @ -[No] Poses a threat to life or bodily function? How? (Chest pain, USA, SC, pneumonia, PE, COPD, DKA, ARF, appy, cholecystitis, CVA, Diverticulitis, Homicidal, Suicidal, threat to staff... and all critical care pts) @ -[No] Dr. Dudley is my attending. - Lab Data Result diagrams: 08/10/22 15:25 08/10/22 15:25 Lab Results 08/10/22 08/10/22 08/10/22 Range/Units 15:25 15:25 15:25 WBC 8.6 (3.8-10.6) k/uL RBC 4.22 (3.80-5.40) m/uL Hgb 12.1 (11.4-16.0) gm/dL Hct 36.7 (34.0-46.0) % MCV 86.9 (80.0-100.0) fL MCH 28.7 (25.0-35.0) pg MCHC 33.1 (31.0-37.0) g/dL RDW 12.6 (11.5-15.5) % Plt Count 307 (150-450) k/uL MPV 7.8 Neutrophils % 69 % Lymphocytes % 22 % Monocytes % 5 % Eosinophils % 2 % Basophils % 1 % Neutrophils # 5.9 (1.3-7.7) k/uL Lymphocytes # 1.9 (1.0-4.8) k/uL Monocytes # 0.5 (0-1.0) k/uL Eosinophils # 0.2 (0-0.7) k/uL Basophils # 0.1 (0-0.2) k/uL Sodium 138 (137-145) mmol/L Potassium 4.1 (3.5-5.1) mmol/L Chloride 109 H (98-107) mmol/L Carbon Dioxide 23 (22-30) mmol/L Anion Gap 6 mmol/L BUN 12 (7-17) mg/dL Creatinine 0.68 (0.52-1.04) mg/dL Est GFR (CKD-EPI)AfAm >90 (>60 ml/min/1.73 sqM) Est GFR (CKD-EPI)NonAf >90 (>60 ml/min/1.73 sqM) Glucose 115 H (74-99) mg/dL Calcium 8.5 (8.4-10.2) mg/dL Total Bilirubin 0.2 (0.2-1.3) mg/dL AST 22 (14-36) U/L ALT 25 (4-34) U/L Alkaline Phosphatase 58 (38-126) U/L Total Protein 6.9 (6.3-8.2) g/dL Albumin 3.9 (3.5-5.0) g/dL Urine Color Urine Appearance (Clear) Urine pH (5.0-8.0) Ur Specific Peck (1.001-1.035) Urine Protein (Negative) Urine Glucose (UA) (Negative) Urine Ketones (Negative) Urine Blood (Negative) Urine Nitrite (Negative) Urine Bilirubin (Negative) Urine Urobilinogen (<2.0) mg/dL Ur Leukocyte Esterase (Negative) Influenza Type A (PCR) Not Detected (Not Detectd) Influenza Type B (PCR) Not Detected (Not Detectd) RSV (PCR) Not Detected (Not Detectd) SARS-CoV-2 (PCR) Not Detected (Not Detectd) 08/10/22 Range/Units 15:25 WBC (3.8-10.6) k/uL RBC (3.80-5.40) m/uL Hgb (11.4-16.0) gm/dL Hct (34.0-46.0) % MCV (80.0-100.0) fL MCH (25.0-35.0) pg MCHC (31.0-37.0) g/dL RDW (11.5-15.5) % Plt Count (150-450) k/uL MPV Neutrophils % % Lymphocytes % % Monocytes % % Eosinophils % % Basophils % % Neutrophils # (1.3-7.7) k/uL Lymphocytes # (1.0-4.8) k/uL Monocytes # (0-1.0) k/uL Eosinophils # (0-0.7) k/uL Basophils # (0-0.2) k/uL Sodium (137-145) mmol/L Potassium (3.5-5.1) mmol/L Chloride (98-107) mmol/L Carbon Dioxide (22-30) mmol/L Anion Gap mmol/L BUN (7-17) mg/dL Creatinine (0.52-1.04) mg/dL Est GFR (CKD-EPI)AfAm (>60 ml/min/1.73 sqM) Est GFR (CKD-EPI)NonAf (>60 ml/min/1.73 sqM) Glucose (74-99) mg/dL Calcium (8.4-10.2) mg/dL Total Bilirubin (0.2-1.3) mg/dL AST (14-36) U/L ALT (4-34) U/L Alkaline Phosphatase (38-126) U/L Total Protein (6.3-8.2) g/dL Albumin (3.5-5.0) g/dL Urine Color Yellow Urine Appearance Clear (Clear) Urine pH 5.5 (5.0-8.0) Ur Specific [place] 1.022 (1.001-1.035) Urine Protein Negative (Negative) Urine Glucose (UA) Negative (Negative) Urine Ketones Negative (Negative) Urine Blood Negative (Negative) Urine Nitrite Negative (Negative) Urine Bilirubin Negative (Negative) Urine Urobilinogen <2.0 (<2.0) mg/dL Ur Leukocyte Esterase Negative (Negative) Influenza Type A (PCR) (Not Detectd) Influenza Type B (PCR) (Not Detectd) RSV (PCR) (Not Detectd) SARS-CoV-2 (PCR) (Not Detectd) Disposition Clinical Impression: Multiple falls, Multiple sclerosis Disposition: ADMITTED IP TO THIS HOSP Referrals: Dary La MD [Primary Care Provider] - 1-2 days
--- NOTE | 2022-08-10 16:46 | CT ---
EXAMINATION TYPE: CT brain frank hurt con DATE OF EXAM: 08/10/2022 COMPARISON: CT brain 01/16/2022 HISTORY: Multiple falls, hx MS CT DLP: 1496.6 mGycm Automated exposure control for dose reduction was used. Images of the brain and cervical spine obtained with no contrast. There is 2 cm area of cortical hypodensity in the left posterior inferior frontal lobe. There is no m ass effect or midline shift. No evidence of intracranial hemorrhage. Calvarium is intact. The cervical vertebra show some mild straightening. There is disc space narrowing at C5-6 with anteri or and posterior endplate spur formation. No compression fracture. Facet joints are intact. Preverteb ral soft tissues are intact. 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 No acute intracranial abnormalit y. Spondylosis at C5-6. No fracture.
[2022-08-10 16:52] LABS: Appearance,Urine Clear (Clear); Bilirubin,Urine Negative (Negative); Blood,Urine Negative (Negative); Color,Urine Yellow; Glucose,Urine (UA) Negative (Negative); Ketones,Urine Negative (Negative); Leukocyte Esterase,Urine Negative (Negative); Nitrite,Urine Negative (Negative); PH, Urine 5.5 (5.0-8.0); Protein,Urine Negative (Negative); Specific Gravity,Urine 1.022 (1.001-1.035); Urobilinogen,Urine <2.0 mg/dL (<2.0)
--- NOTE | 2022-08-10 16:55 | XR ---
EXAMINATION TYPE: XR Hip LT and AP Pelvis DATE OF EXAM: 08/10/2022 COMPARISON: NONE HISTORY: Hip pain TECHNIQUE: 3 views FINDINGS: The pelvic ring is intact. The proximal left femur and hip joint appear normal. No hip dysp lasia. Sacroiliac joints are intact. IMPRESSION: Normal pelvis and left hip exam.
--- NOTE | 2022-08-10 16:56 | XR ---
EXAMINATION TYPE: XR forearm LT DATE OF EXAM: 08/10/2022 COMPARISON: None HISTORY: Fall, pain TECHNIQUE: 2 view left forearm FINDINGS: No acute fracture or dislocation is evident. Soft tissues appear normal. No elevation of th e elbow fat pads is evident. Follow up exams are recommended 7-10 days from acute trauma for continued pain. IMPRESSION: 1. No acute osseous abnormality left forearm
[2022-08-10] MEDS ORDERED: NALOXONE 0.4 MG/ML 1 ML VIAL IV PRN (18:03)
[2022-08-10] MEDS: SODIUM CHLORIDE 0.9% 1,000 ML IV SCH (18:46)
[2022-08-10] MEDS: KETOROLAC 15 MG/ML 1 ML VIAL IVP PRN (19:43)
[2022-08-10] MEDS ORDERED: ONDANSETRON ODT 4 MG TAB PO PRN (22:14)
[2022-08-10] MEDS: hydrOXYzine pamoate 25 MG CAP PO SCH (22:31)
[2022-08-10] MEDS: DICYCLOMINE 20 MG TAB PO SCH (22:32)
[2022-08-10] MEDS: GABAPENTIN 100 MG CAP PO SCH (22:32)
[2022-08-10] MEDS: APIXABAN 5 MG TAB PO SCH (22:32)
[2022-08-10] MEDS: traZODone HCL 100 MG TAB PO SCH (22:32)
[2022-08-10] MEDS: busPIRone HCl 10 MG TAB PO SCH (22:32)
[2022-08-11] MEDS: CITALOPRAM HYDROBROMIDE 20 MG TAB PO SCH ×2 (01:22→09:50)
[2022-08-11] MEDS: SODIUM CHLORIDE 0.9% 1,000 ML IV SCH ×2 (06:22→09:52)
[2022-08-11 07:42] LABS: African American GFR (CKD) >90 (>60 ml/min/1.73 sqM); Anion Gap 3 mmol/L; Blood Urea Nitrogen 10 mg/dL (7-17); Calcium 7.9 mg/dL (8.4-10.2); Carbon Dioxide 21 mmol/L (22-30); Chloride 114 mmol/L (98-107); Glucose 98 mg/dL (74-99); Non-African American GFR(CKD) >90 (>60 ml/min/1.73 sqM); Potassium 4.3 mmol/L (3.5-5.1); Sodium 138 mmol/L (137-145)
[2022-08-11 07:53] LABS: HCG,Qualitative Serum Not Detected
[2022-08-11] MEDS ORDERED: polyethylene glycoL 3350 17 GM POWD.PACK PO PRN (09:00)
[2022-08-11] MEDS ORDERED: FLUTICASONE 50MCG/SPRAY NASAL 16GM EA NOSTRIL PRN (09:00)
--- NOTE | 2022-08-11 09:22 | P.HPIM ---
History of Present Illness This is a pleasant 41 years old female with past medical history of Pulmonary Embolus on blood thinner, Rheumatoid Arthritis (RA), MS, optic neuritis, chronic low back pain/bulging discs, possible ventral hernia, past meth abuse/clean for 18 months, Anxiety, Depression, Pt currently staying at [facility] d/t was homeless and at higher risk to relapse with meth addiction. Past rehab for meth addiction/clean for 7 months. Pt does not drive, she gets to app by bus or her sister. She is otherwise independent. pt states she has fallen 4 times over the past few days. Yesterday she fell twice, second time was while she is in the stairs so she decided to come to the hospital. Patient has been complaining from dizziness over 1-1.5 weeks, no vertigo only one closes her eyes, no presyncope. She described it as nonspecific dizziness. No headache. No new weakness or numbness. She has persistent some mild left leg hemiparesis and chronic numbness and she doesn't feel her left foot since last time admitted to the hospital with MS exacerbation about 20 years ago. pt arrives for left hip and arm pain after she fell but there is no restriction of movement and x-ray were negative. Patient denies any other specific complaints, no chest pain or dyspnea, no coughing. No loss of consciousness or syncope. No urinary or GI symptoms like no dysuria or vomiting or diarrhea. No abdominal pain. Alert/double vision, no slurred speech she vapes nicotine and she was counseled to quit and she agrees to the nicotine patch but she declines alcohol or illicit drugs She follows up with Dr. Cardoso for MS problem, he is in [facility], next appointment supposed to be this September Vitals are stable, patient is afebrile. Labs reviewed showing unremarkable CBC, BMP, liver enzymes. Urineanalysis is negative. coronavirus and influenza viruses are detected CT of the head and cervical spine: No acute process in either image. 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 Spondylosis at C5-C6 Left forearm x-ray: No acute process Hip and left hip x-ray: Normal exam per Radiologist On admission patient received Dilaudid, Reglan and placed on Toradol and normal saline Patient admitted with neurology consult Review of Systems Review of systems CONSTITUTIONAL: No fever, no malaise, no fatigue. HEENT: No recent visual problems or hearing problems. Denied any sore throat. CARDIOVASCULAR: No orthopnea, PND, no palpitations, no syncope. PULMONARY: No shortness of breath, no cough, no hemoptysis. GASTROINTESTINAL: No diarrhea, no nausea, no vomiting, no abdominal pain. Normoactive bowel sounds. NEUROLOGICAL: No headaches, no weakness, no numbness. HEMATOLOGICAL: Denies any bleeding or petechiae. GENITOURINARY: Denies any burning micturition, frequency, or urgency. MUSCULOSKELETAL/RHEUMATOLOGICAL: Denies any joint pain, swelling, or any muscle pain. ENDOCRINE: Denies any polyuria or polydipsia. Past Medical History Past Medical History: Blood Disorder, Eye Disorder, Neurologic Disorder, Pulmonary Embolus (PE), Rheumatoid Arthritis (RA), Vascular Disorder Additional Past Medical History / Comment(s): MS, optic neuritis, proficiency C & S disorder, PE/pt cannot recall laterallity, aortic calcification, chin abscess/sepsis, UTI, chronic low back pain/bulging discs, possible ventral hernia, past meth abuse/clean for 18 months. History of Any Multi-Drug Resistant Organisms: MRSA Date of last positivie culture/infection: 04/09/22 MDRO Source:: Buttock Past Surgical History: Appendectomy Additional Past Surgical History / Comment(s): ectopic (2/ L fallopian tube rupture with surgery, R labia abscess/I&D Past Anesthesia/Blood Transfusion Reactions: No Reported Reaction Past Psychological History: Anxiety, Depression Additional Psychological History / Comment(s): Pt currently staying at [facility] d/t was homeless and at higher risk to relapse with meth addiction. Past rehab for meth addiction/clean for 7 months[address] Pt does not drive, she gets to [facility] by bus or her sister. She is otherwise independent. Smoking Status: Former smoker Past Alcohol Use History: None Reported Additional Past Alcohol Use History / Comment(s): Pt started smoking in 1997 and quit 3 months ago. Past Drug Use History: Methamphetamine Additional Drug Use History / Comment(s): Pt has hx of meth addiction with rehab. She has not used meth in 18 months. - Past Family History Father Family Medical History: No Reported History Mother History Unknown: Yes Medications and Allergies Home Medications Medication Instructions Recorded Confirmed Type traZODone HCL [Desyrel] 100 mg PO HS 09/06/21 08/10/22 History Apixaban [Eliquis] 5 mg PO BID 01/15/22 08/10/22 History Cholecalciferol [Vitamin D3 (25 50 mcg PO DAILY 07/05/22 08/10/22 History Mcg = 1000 Iu)] Citalopram Hydrobromide [CeleXA] 40 mg PO DAILY 07/05/22 08/10/22 History Fluticasone Nasal [place] [Flonase 2 spr EA NOSTRIL DAILY PRN 07/05/22 08/10/22 History Nasal [place]] Gabapentin [Neurontin] 100 mg PO BID 07/05/22 08/10/22 History Ondansetron Odt [Zofran Odt] 4 mg PO Q8HR PRN 07/05/22 08/10/22 History hydrOXYzine pamoate [hydrOXYzine 25 mg PO TID 07/05/22 08/10/22 History PAMOATE] polyethylene glycoL 3350 [Miralax] 17 gm PO DAILY PRN 07/05/22 08/10/22 History Dicyclomine [Bentyl] 20 mg PO TID 08/10/22 08/10/22 History busPIRone HCl [Buspar] 10 mg PO TID 08/10/22 08/10/22 History Allergies Allergy/AdvReac Type Severity Reaction Status Date / Time vancomycin Allergy Severe Rash/Hives, Verified 08/10/22 18:26 itching, burning Physical Exam Vitals: Vital Signs Temp Pulse Pulse Resp BP BP Pulse Ox 08/11/22 02:00 97.9 F 71 16 113/75 95 08/10/22 20:54 98.1 F 87 16 106/63 98 08/10/22 20:15 88 16 124/82 95 08/10/22 18:47 79 18 110/92 96 08/10/22 16:47 72 18 113/73 96 08/10/22 15:57 78 18 130/78 98 08/10/22 14:48 97.6 F 87 18 166/77 97 Intake and Output 08/10/22 08/10/22 08/11/22 14:59 22:59 06:59 Intake Total 1560 Balance 1560 Intake: Intake, IV Titration 1560 Amount Sodium Chloride 0.9% 1, 1560 000 ml @ 130 mls/hr IV . Q7H42M [facility] Rx#:[id number] Other: Weight 93.44 kg 93.44 kg GENERAL: The patient is alert and oriented x3, not in any acute distress. Well developed, well nourished. HEENT: Pupils are round and equally reacting to light. EOMI. No scleral icterus. No conjunctival pallor. Normocephalic, atraumatic. No pharyngeal erythema. No thyromegaly. CARDIOVASCULAR: S1 and S2 present. No murmurs, rubs, or gallops. PULMONARY: Chest is clear to auscultation, no wheezing or crackles. ABDOMEN: Soft, nontender, nondistended, normoactive bowel sounds. No palpable organomegaly. MUSCULOSKELETAL: No joint swelling or deformity. EXTREMITIES: No cyanosis, clubbing, or pedal edema. NEUROLOGICAL: Gross neurological examination did not reveal any focal deficits. SKIN: No rashes. no petechiae. Results CBC & Chem 7: 08/10/22 15:25 08/11/22 07:11 Labs: Abnormal Lab Results - Last 24 Hours (Table) 08/10/22 Range/Units 15:25 Chloride 109 H (98-107) mmol/L Glucose 115 H (74-99) mg/dL Assessment and Plan Assessment: Multiple falls with dizziness, suspicious for exacerbation of multiple sclerosis History of rheumatoid arthritis History of anxiety and trauma History of pulmonary embolism on Eliquis History of optic neuritis Chronic low back pain History of methamphetamine use, cleaned for more than one year Plan: Continue with gentle hydration Follow-up within neurology exam Physical therapist evaluation Labs and medication were reviewed.. Continue same treatment. Continue with symptomatic treatment. Resume home medication. Monitor labs and vitals. DVT and GI prophylaxis. Further recommendations as per clinical course of the patient DVT prophylaxis: On Eliquis GI Prophylaxis: Pepcid PT/OT: Pending Prognosis is guarded
[2022-08-11] MEDS: KETOROLAC 15 MG/ML 1 ML VIAL IVP PRN ×2 (09:47→16:41)
[2022-08-11] MEDS: busPIRone HCl 10 MG TAB PO SCH ×3 (09:50→21:28)
[2022-08-11] MEDS: APIXABAN 5 MG TAB PO SCH ×2 (09:50→21:28)
[2022-08-11] MEDS: DICYCLOMINE 20 MG TAB PO SCH ×3 (09:50→21:28)
[2022-08-11] MEDS: NICOTINE 21MG/24HR PATCH TRANSDERM SCH (09:50)
[2022-08-11] MEDS: GABAPENTIN 100 MG CAP PO SCH ×2 (09:50→21:28)
[2022-08-11] MEDS: hydrOXYzine pamoate 25 MG CAP PO SCH ×3 (09:50→21:28)
[2022-08-11] MEDS: CHOLECALCIFEROL 25 MCG (1000 IU) TABLET PO SCH (09:50)
[2022-08-11] MEDS: methylPREDNISolone SOD SUCCIN 1,000 MG in SODIUM CHLORIDE 0.9% 250 ML IVPB SCH (16:41)
[2022-08-11] MEDS ORDERED: FAMOTIDINE 20 MG/2 ML VIAL IV SCH (21:00)
[2022-08-11] MEDS: FAMOTIDINE 20 MG TAB PO SCH (21:28)
[2022-08-11] MEDS: traZODone HCL 100 MG TAB PO SCH (21:28)
[2022-08-12] MEDS: KETOROLAC 15 MG/ML 1 ML VIAL IVP PRN ×4 (00:43→21:11)
[2022-08-12] MEDS: SODIUM CHLORIDE 0.9% 1,000 ML IV SCH ×4 (00:44→17:26)
--- NOTE | 2022-08-12 07:27 | P.CNNES ---
History of Present Illness Consult date: 08/11/22 Requesting physician: Katie Hopkins Reason for Consult: recurrent falls, hx of MS History of Present Illness: Patient is a 41-year-old female with history of relapsing remitting MS, has been previously seen in consultation in January 2022 as well for probable MS exacerbation. At that time patient has presented with pain in the left distal upper arm, with some numbness and weakness of the left arm. Left leg feels heav y like a magnet. She was having chest pain and anxiety. Patient now came to the hospital yesterday at 2:39 PM for frequent falls. Patient states that she has been falling a lot in the last 1 month. She fell down stairs 3 times in the past month. The last fall was last week and the one before was couple weeks prior. Patient states that when she closes her eyes, she feels dizzy. Patient states that the main problem is the left leg, as it "want go". She trips on the curb for the last 1 month. She states the right leg is fine. Denies any symptoms related to the head or neck region. Patient follows up with Dr. Hernandez, her neurologist. Patient currently receiving Ocrevus, the last infusion was in February or March 2022 and is due in September 2022. Patient has history of multiple sclerosis that was diagnosed in 2003. She was at first placed on Avonex but developed significant side effects. She was on Copaxone but stopped taking it for long time. Patient previously has history of optic neuritis, involving bilateral eyes. She also has history of vertigo in the past. Patient has smoked half to 1 pack per day since age 16. She stopped smoking in March 2021, and started vaping, and still vapes. 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 No acute intracranial abnormality. Spondylosis at C5 6. X-ray of the forearm negative. X-ray of the left hip and pelvis are normal. Blood test shows normal CBC, CMP, TSH, ECG, UA. Influenza screen, RSV and Covid testing negative. Patient currently on trazodone 100 mg at bedtime, Eliquis 5 mg twice a day, gabapentin 100 mg twice a day, vitamin D, hydroxyzine, Zofran, Celexa, BuSpar 10 mg 3 times a day. Review of Systems Constitutional: Denies chills, Denies fever Eyes: denies blurred vision, denies pain Ears: deny: decreased hearing Ears, nose, mouth and throat: Denies headache, Denies sore throat Cardiovascular: Denies chest pain, Denies shortness of breath Respiratory: Denies cough Gastrointestinal: Denies abdominal pain, Denies diarrhea, Denies nausea, Denies vomiting Musculoskeletal: Denies myalgias Integumentary: Denies pruritus, Denies rash Neurological: Reports as per HPI Psychiatric: Denies anxiety, Denies depression Endocrine: Denies fatigue, Denies weight change Past Medical History Past Medical History: Blood Disorder, Eye Disorder, Neurologic Disorder, Pulmonary Embolus (PE), Rheumatoid Arthritis (RA), Vascular Disorder Additional Past Medical History / Comment(s): MS, optic neuritis, proficiency C & S disorder, PE/pt cannot recall laterallity, aortic calcification, chin abscess/sepsis, UTI, chronic low back pain/bulging discs, possible ventral hernia, past meth abuse/clean for 18 months. History of Any Multi-Drug Resistant Organisms: MRSA Date of last positivie culture/infection: 04/09/22 MDRO Source:: Buttock Past Surgical History: Appendectomy Additional Past Surgical History / Comment(s): ectopic (2/ L fallopian tube rupture with surgery, R labia abscess/I&D Past Anesthesia/Blood Transfusion Reactions: No Reported Reaction Past Psychological History: Anxiety, Depression Additional Psychological History / Comment(s): Pt currently staying at [facility] d/t was homeless and at higher risk to relapse with meth addiction. Past rehab for meth addiction/clean for 7 months[address] Pt does not drive, she gets to [facility] by bus or her sister. She is otherwise independent. Smoking Status: Former smoker Past Alcohol Use History: None Reported Additional Past Alcohol Use History / Comment(s): Pt started smoking in 1997 and quit 3 months ago. Past Drug Use History: Methamphetamine Additional Drug Use History / Comment(s): Pt has hx of meth addiction with rehab. She has not used meth in 18 months. - Past Family History Father Family Medical History: No Reported History Mother History Unknown: Yes Medications and Allergies Home Medications Medication Instructions Recorded Confirmed Type traZODone HCL [Desyrel] 100 mg PO HS 09/06/21 08/10/22 History Apixaban [Eliquis] 5 mg PO BID 01/15/22 08/10/22 History Cholecalciferol [Vitamin D3 (25 50 mcg PO DAILY 07/05/22 08/10/22 History Mcg = 1000 Iu)] Citalopram Hydrobromide [CeleXA] 40 mg PO DAILY 07/05/22 08/10/22 History Fluticasone Nasal [place] [Flonase 2 spr EA NOSTRIL DAILY PRN 07/05/22 08/10/22 History Nasal [place]] Gabapentin [Neurontin] 100 mg PO BID 07/05/22 08/10/22 History Ondansetron Odt [Zofran Odt] 4 mg PO Q8HR PRN 07/05/22 08/10/22 History hydrOXYzine pamoate [hydrOXYzine 25 mg PO TID 07/05/22 08/10/22 History PAMOATE] polyethylene glycoL 3350 [Miralax] 17 gm PO DAILY PRN 07/05/22 08/10/22 History Dicyclomine [Bentyl] 20 mg PO TID 08/10/22 08/10/22 History busPIRone HCl [Buspar] 10 mg PO TID 08/10/22 08/10/22 History Allergies Allergy/AdvReac Type Severity Reaction Status Date / Time vancomycin Allergy Severe Rash/Hives, Verified 08/10/22 18:26 itching, burning Physical Examination - Vital Signs Vital Signs: Vital Signs Temp Pulse Pulse Resp BP BP Pulse Ox 08/11/22 07:17 97.7 F 74 18 116/78 96 08/11/22 02:00 97.9 F 71 16 113/75 95 08/10/22 20:54 98.1 F 87 16 106/63 98 08/10/22 20:15 88 16 124/82 95 08/10/22 18:47 79 18 110/92 96 08/10/22 16:47 72 18 113/73 96 08/10/22 15:57 78 18 130/78 98 08/10/22 14:48 97.6 F 87 18 166/77 97 Intake and Output 08/10/22 08/11/22 08/11/22 22:59 06:59 14:59 Intake Total 1560 Balance 1560 Intake: Intake, IV Titration 1560 Amount Sodium Chloride 0.9% 1, 1560 000 ml @ 130 mls/hr IV . Q7H42M [facility] Rx#:[id number] Other: Weight 93.44 kg Patient is a middle aged female, very pleasant, in no acute distress. Patient is alert awake oriented to time place and person. Speech and language functions are normal. Patient can name and repeat very well. No aphasia or dysarthria. Attention, concentration and fund of knowledge is adequate. On cranial nerve examination, pupils are equal, round and reacting to light, visual verduzco are full on confrontation, with no neglect on double simultaneous stimulation. Extraocular muscles are intact with no nystagmus. Face is symmetric, tongue protrudes to the midline. Palatal elevation and sensation normal, hearing and shoulder shrug normal, facial sensation normal. On muscle strength testing, there is no pronator drift and the strength is normal in arms and legs distally and proximally, except left hip flexion, which is 4. Deep tendon reflexes are symmetric 1+ at the biceps, brachioradialis in the knees, 2 at the ankles and plantar are probable upgoing bilaterally. Sensory to touch is decreased in the left arm and leg, as compared to the right, although the differences more prominent in the legs as compared to the arm. No neglect on double simultaneous stimulation. Cerebellar function showed no ataxia for [id number] testing. No dysdiadocho kinesia. Tone and bulk of muscles normal. Gait deferred.. On general examination, there is no carotid bruit or murmur, S1-S2 audible. Chest is clear on consultation. Abdomen is soft nontender. No organomegaly, bowel sounds present. Peripheral pulses are present. No edema. Results - Laboratory Findings CBC and BMP: 08/10/22 15:25 08/11/22 07:11 Abnormal Lab Findings: Abnormal Labs 08/10/22 08/11/22 15:25 07:11 Chloride 109 H 114 H Carbon Dioxide 21 L Glucose 115 H Calcium 7.9 L Assessment and Plan Assessment: * 41-year-old female with relapsing remitting multiple sclerosis, feels weakness in the left leg, with tendency to fall for the last 1 month. Possible MS exacerbation. * Last exacerbation 01/18/2022. * Hypercoagulable state, on anticoagulation * Vaping Plan: * Patient has possible MS exacerbation. Patient will receive Solu-Medrol 1 g IVPB daily for 3 days. Thereafter patient can be discharged. * Patient is scheduled for Ocrevus infusion in September 2022. Patient was recommended to follow up with her neurologist in 2-4 weeks after discharge. * Check B12, folate. * Thank you for the consult.
[2022-08-12] MEDS: DICYCLOMINE 20 MG TAB PO SCH ×4 (07:30→21:19)
[2022-08-12] MEDS: FAMOTIDINE 20 MG TAB PO SCH ×2 (07:30→21:12)
[2022-08-12] MEDS: hydrOXYzine pamoate 25 MG CAP PO SCH ×3 (07:30→21:10)
[2022-08-12] MEDS: GABAPENTIN 100 MG CAP PO SCH ×2 (07:30→21:12)
[2022-08-12] MEDS: CITALOPRAM HYDROBROMIDE 20 MG TAB PO SCH (07:30)
[2022-08-12] MEDS: APIXABAN 5 MG TAB PO SCH ×2 (07:31→21:11)
[2022-08-12] MEDS: busPIRone HCl 10 MG TAB PO SCH ×3 (07:31→21:12)
[2022-08-12] MEDS: NICOTINE 21MG/24HR PATCH TRANSDERM SCH (07:31)
[2022-08-12] MEDS: CHOLECALCIFEROL 25 MCG (1000 IU) TABLET PO SCH (07:31)
[2022-08-12] MEDS: methylPREDNISolone SOD SUCCIN 1,000 MG in SODIUM CHLORIDE 0.9% 250 ML IVPB SCH (08:22)
--- NOTE | 2022-08-12 10:59 | P.PN ---
Subjective This is a pleasant 41 years old female with past medical history of Pulmonary Embolus on blood thinner, Rheumatoid Arthritis (RA), MS, optic neuritis, chronic low back pain/bulging discs, possible ventral hernia, past meth abuse/clean for 18 months, Anxiety, Depression, Pt currently staying at [facility] d/t was homeless and at higher risk to relapse with meth addiction. Past rehab for meth addiction/clean for 7 months[address] Pt [address], she gets to app by bus or her sister. She is otherwise independent. pt states she has fallen 4 times over the past few days. Yesterday she fell twice, second time was while she is in the stairs so she decided to come to the hospital. Patient has been complaining from dizziness over 1-1.5 weeks, no vertigo only one closes her eyes, no presyncope. She described it as nonspecific dizziness. No headache. No new weakness or numbness. She has persistent some mild left leg hemiparesis and chronic numbness and she doesn't feel her left foot since last time admitted to the hospital with MS exacerbation about 20 years ago. pt arrives for left hip and arm pain after she fell but there is no restriction of movement and x-ray were negative. Patient denies any other specific complaints, no chest pain or dyspnea, no coughing. No loss of consciousness or syncope. No urinary or GI symptoms like no dysuria or vomiting or diarrhea. No abdominal pain. Alert/double vision, no slurred speech she vapes nicotine and she was counseled to quit and she agrees to the nicotine patch but she declines alcohol or illicit drugs She follows up with Dr. Cardoso for MS problem, he is in [facility], next appointment supposed to be this September Vitals are stable, patient is afebrile. Labs reviewed showing unremarkable CBC, BMP, liver enzymes. Urineanalysis is negative. coronavirus and influenza viruses are detected CT of the head and cervical spine: No acute process in either image. 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 Spondylosis at C5-C6 Left forearm x-ray: No acute process Hip and left hip x-ray: Normal exam per Radiologist On admission patient received Dilaudid, Reglan and placed on Toradol and normal saline Patient admitted with neurology consult 08/12/2022 Patient sitting persistent lightheadedness although some improvement, also she has worsened left leg weakness and pain. She's continued on IV Solu-Medrol 1000 mg daily, tomorrow his last dose. We will check ultrasound of the left leg Possible discharge in 24-48 hours if she keeps improving Objective - Vital Signs Vital signs: Vital Signs Temp 98.1 F 08/12/22 07:26 Pulse 68 08/12/22 07:26 Resp 18 08/12/22 07:26 BP 145/82 08/12/22 07:26 Pulse Ox 95 08/12/22 07:26 FiO2 Intake & Output 08/11/22 08/12/22 08/12/22 18:59 06:59 18:59 Intake Total 1920 Balance 1920 Intake: Intake, IV Titration 1560 Amount Sodium Chloride 0.9% 1, 1560 000 ml @ 130 mls/hr IV . Q7H42M [facility] Rx#:[id number] Oral 360 Other: # Voids 2 2 - Exam GENERAL: The patient is alert and oriented x3, not in any acute distress. Well developed, well nourished. HEENT: Pupils are round and equally reacting to light. EOMI. No scleral icterus. No conjunctival pallor. Normocephalic, atraumatic. No pharyngeal erythema. No thyromegaly. CARDIOVASCULAR: S1 and S2 present. No murmurs, rubs, or gallops. PULMONARY: Chest is clear to auscultation, no wheezing or crackles. ABDOMEN: Soft, nontender, nondistended, normoactive bowel sounds. No palpable organomegaly. MUSCULOSKELETAL: No joint swelling or deformity. EXTREMITIES: No cyanosis, clubbing, or pedal edema. -NEUROLOGICAL: Gross neurological examination did not reveal any focal deficits. Left leg weakness, looks chronic with slight recent worsening. Patient SKIN: No rashes. no petechiae. - Labs CBC & Chem 7: 08/10/22 15:25 08/11/22 07:11 Assessment and Plan Assessment: Multiple falls with dizziness, suspicious for exacerbation of multiple sclerosis History of rheumatoid arthritis History of anxiety and trauma History of pulmonary embolism on Eliquis History of optic neuritis Chronic low back pain History of methamphetamine use, cleaned for more than one year Plan: Continue with gentle hydration Follow-up within neurology exam Physical therapist evaluation Labs and medication were reviewed.. Continue same treatment. Continue with symptomatic treatment. Resume home medication. Monitor labs and vitals. DVT and GI prophylaxis. Further recommendations as per clinical course of the patient DVT prophylaxis: On Eliquis GI Prophylaxis: Pepcid PT/OT: Pending Prognosis is guarded
--- NOTE | 2022-08-12 15:49 | US ---
EXAMINATION TYPE: US venous doppler duplex LE LT DATE OF EXAM: 08/12/2022 11:55 AM COMPARISON: NONE CLINICAL HISTORY: 41-year-old female Left leg pain SIDE PERFORMED: Left TECHNIQUE: The lower extremity deep venous system is examined utilizing real time linear array sonog pat with graded compression, doppler sonography and color-flow sonography. FINDINGS: VESSELS IMAGED: Common Femoral Vein Deep Femoral Vein Greater Saphenous Vein * Femoral Vein Popliteal Vein Small Saphenous Vein * Proximal Calf Veins Posterior tibial veins (* superficial vessels) Left Leg: Negative for DVT IMPRESSION: No evidence for DVT within the left lower extremity.
[2022-08-12] MEDS: CYANOCOBALAMIN 500 MCG TAB PO SCH (21:10)
[2022-08-12] MEDS: FOLIC ACID 1 MG TAB PO SCH ×2 (21:12→21:19)
[2022-08-12] MEDS: traZODone HCL 100 MG TAB PO SCH (21:12)
[2022-08-13] MEDS: SODIUM CHLORIDE 0.9% 1,000 ML IV SCH ×2 (00:44→07:51)
[2022-08-13] MEDS: CHOLECALCIFEROL 25 MCG (1000 IU) TABLET PO SCH (07:51)
[2022-08-13] MEDS: NICOTINE 21MG/24HR PATCH TRANSDERM SCH (07:51)
[2022-08-13] MEDS: CYANOCOBALAMIN 500 MCG TAB PO SCH (07:51)
[2022-08-13] MEDS: hydrOXYzine pamoate 25 MG CAP PO SCH ×3 (07:52→21:05)
[2022-08-13] MEDS: APIXABAN 5 MG TAB PO SCH ×2 (07:52→19:54)
[2022-08-13] MEDS: FAMOTIDINE 20 MG TAB PO SCH ×2 (07:52→19:54)
[2022-08-13] MEDS: CITALOPRAM HYDROBROMIDE 20 MG TAB PO SCH (07:52)
[2022-08-13] MEDS: busPIRone HCl 10 MG TAB PO SCH ×3 (07:53→21:06)
[2022-08-13] MEDS: DICYCLOMINE 20 MG TAB PO SCH ×3 (07:53→21:06)
[2022-08-13] MEDS: KETOROLAC 15 MG/ML 1 ML VIAL IVP PRN ×2 (07:53→19:54)
[2022-08-13] MEDS: GABAPENTIN 100 MG CAP PO SCH ×2 (07:54→19:54)
[2022-08-13] MEDS: FOLIC ACID 1 MG TAB PO SCH (07:54)
[2022-08-13] MEDS: methylPREDNISolone SOD SUCCIN 1,000 MG in SODIUM CHLORIDE 0.9% 250 ML IVPB SCH (09:36)
--- NOTE | 2022-08-13 10:56 | P.PN ---
Subjective Progress Note Date: 08/12/22 Patient was seen for a follow-up. Patient states that she has been feeling some cramping the left leg. Patient underwent ultrasound of the left lower extremity, negative for DVT. Objective - Vital Signs Vital signs: Vital Signs Temp 98.4 F 08/12/22 12:45 Pulse 86 08/12/22 12:45 Resp 18 08/12/22 12:45 BP 137/85 08/12/22 12:45 Pulse Ox 95 08/12/22 12:45 FiO2 Intake & Output 08/11/22 08/12/22 08/12/22 18:59 06:59 18:59 Intake Total 1920 Balance 1920 Intake: Intake, IV Titration 1560 Amount Sodium Chloride 0.9% 1, 1560 000 ml @ 130 mls/hr IV . Q7H42M [facility] Rx#:[id number] Oral 360 Other: # Voids 2 2 - Exam Patient's mental status, speech and language functions are normal. Muscle strength significant for left hip flexion weakness. - Labs CBC & Chem 7: 08/10/22 15:25 08/11/22 07:11 Assessment and Plan Assessment: * 41-year-old female with relapsing remitting multiple sclerosis, feels weakness in the left leg, with tendency to fall for the last 1 month. Possible MS exacerbation. * Last exacerbation 01/18/2022. * Hypercoagulable state, on anticoagulation * Vaping Plan: * Patient has possible MS exacerbation. Patient will receive Solu-Medrol 1 g IVPB daily for 3 days. * MRI of the brain with and without contrast to evaluate for enhancing lesion. If the MRI is abnormal, patient will receive Solu-Medrol for 5 days, otherwise if MRI is negative for any new lesion, then she may be discharged in the morning. * Patient is scheduled for Ocrevus infusion in September 2022. Patient was recommended to follow up with her neurologist in 2-4 weeks after discharge. * B12 397, folate 7.3. We will start B12 and folate replacement.
--- NOTE | 2022-08-13 12:03 | P.PN ---
Subjective This is a pleasant 41 years old female with past medical history of Pulmonary Embolus on blood thinner, Rheumatoid Arthritis (RA), MS, optic neuritis, chronic low back pain/bulging discs, possible ventral hernia, past meth abuse/clean for 18 months, Anxiety, Depression, Pt currently staying at [facility] d/t was homeless and at higher risk to relapse with meth addiction. Past rehab for meth addiction/clean for [address] months[address], she gets to app by bus or her sister. She is otherwise independent. pt states she has fallen 4 times over the past few days. Yesterday she fell twice, second time was while she is in the stairs so she decided to come to the hospital. Patient has been complaining from dizziness over 1-1.5 weeks, no vertigo only one closes her eyes, no presyncope. She described it as nonspecific dizziness. No headache. No new weakness or numbness. She has persistent some mild left leg hemiparesis and chronic numbness and she doesn't feel her left foot since last time admitted to the hospital with MS exacerbation about 20 years ago. pt arrives for left hip and arm pain after she fell but there is no restriction of movement and x-ray were negative. Patient denies any other specific complaints, no chest pain or dyspnea, no coughing. No loss of consciousness or syncope. No urinary or GI symptoms like no dysuria or vomiting or diarrhea. No abdominal pain. Alert/double vision, no slurred speech she vapes nicotine and she was counseled to quit and she agrees to the nicotine patch but she declines alcohol or illicit drugs She follows up with Dr. Cardoso for MS problem, he is in [facility], next appointment supposed to be this September Vitals are stable, patient is afebrile. Labs reviewed showing unremarkable CBC, BMP, liver enzymes. Urineanalysis is negative. coronavirus and influenza viruses are detected CT of the head and cervical spine: No acute process in either image. 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 Spondylosis at C5-C6 Left forearm x-ray: No acute process Hip and left hip x-ray: Normal exam per Radiologist On admission patient received Dilaudid, Reglan and placed on Toradol and normal saline Patient admitted with neurology consult 08/12/2022 Patient sitting persistent lightheadedness although some improvement, also she has worsened left leg weakness and pain. She's continued on IV Solu-Medrol 1000 mg daily, tomorrow his last dose. We will check ultrasound of the left leg Possible discharge in 24-48 hours if she keeps improving 08/13/2022 Patient still complaining of from lightheadedness and left leg weakness and numbness although her left leg problems are mostly chronic. She still on IV Solu-Medrol for presumed MS exacerbation. Tomorrow his last dose. MRI of the brain is requested and is pending. Ultrasound of the left leg is negative for DVT. Vitamin B12 and folate replacement therapy initiated. Patient evaluated by PT/OT and tolerated that well, home is recommended for her. Patient denied any lightheadedness or dizziness with activity lower IV fluids to 75 mL/h Objective - Vital Signs Vital signs: Vital Signs Temp 97.9 F 08/13/22 07:27 Pulse 63 08/13/22 07:27 Resp 20 08/13/22 07:27 BP 144/85 08/13/22 09:41 Pulse Ox 96 08/13/22 07:27 FiO2 Intake & Output 08/12/22 08/13/22 08/13/22 18:59 06:59 18:59 Intake Total 3730 1560 Balance 3730 1560 Intake: Intake, IV Titration 3370 1560 Amount Sodium Chloride 0.9% 1, 3120 1560 000 ml @ 130 mls/hr IV . Q7H42M [facility] Rx#:[id number] methylPREDNISolone SOD 250 SUCCIN 1,000 mg In Sodium Chloride 0.9% 250 ml @ 250 mls/hr IVPB DAILY [facility] Rx#:[id number] Oral 360 - Exam GENERAL: The patient is alert and oriented x3, not in any acute distress. Well developed, well nourished. HEENT: Pupils are round and equally reacting to light. EOMI. No scleral icterus. No conjunctival pallor. Normocephalic, atraumatic. No pharyngeal erythema. No thyromegaly. CARDIOVASCULAR: S1 and S2 present. No murmurs, rubs, or gallops. PULMONARY: Chest is clear to auscultation, no wheezing or crackles. ABDOMEN: Soft, nontender, nondistended, normoactive bowel sounds. No palpable organomegaly. MUSCULOSKELETAL: No joint swelling or deformity. EXTREMITIES: No cyanosis, clubbing, or pedal edema. -NEUROLOGICAL: Gross neurological examination did not reveal any focal deficits. Left leg weakness, looks chronic with slight recent worsening. Patient SKIN: No rashes. no petechiae. 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 Continue same treatment. Continue with symptomatic treatment. Resume home medication. Monitor labs and vitals. DVT and GI prophylaxis. Further recommendations as per clinical course of the patient DVT prophylaxis: On Eliquis GI Prophylaxis: Pepcid PT/OT: Pending Prognosis is guarded
--- NOTE | 2022-08-13 13:20 | MR ---
EXAMINATION TYPE: MR brain wo/w con DATE OF EXAM: 08/13/2022 COMPARISON: 03/11/2022 HISTORY: Weakness, MS exacerbation, compare with prior MRI. CONTRAST: Performed utilizing 9 mL intravenous Gadavist gadolinium contrast. TECHNIQUE: Multiplanar, multiecho imaging on a 3.0 Chiara magnet is performed through the brain. Stud y is performed within 24 hours of arrival to the hospital. The craniovertebral junction is normal. The pituitary is normal. Diffusion-weighted imaging is performed. No abnormal hyperintensity is present to suggest an acute i ntracranial infarct or acute ischemic change. Multiple multiple sclerosis type plaques are present. 1. In the anterior frontal lobe this measures 1.1 x 1.9 x 1.4 cm. Series 602 image 15, series 601 ajay ge 7. 2. In the posterior right parietal region this measures 1.6 x 0.8 x 1.6 cm. Series 602 image 19, seri es 601 image 77. Previous 1.7 x 1.0 cm 3. In the right centrum semiovale this measures 1.2 x 1.0 x 1.3 cm. Series 602 image 21, series 601 i mage 174. New lesion is identified adjacent to the anterior horn right lateral ventricle measuring 1.3 x 1.4 x 1.2 cm. Series 602 image 20, series 601 image 180. This is not hyperintense on diffusion imaging. Ventricles and sulci are prominent for the patient age. IMPRESSIONS: 1. New right frontal lobe white matter change can be compatible with multiple sclerosis. 2. Multiple additional stable appearing white matter changes.
[2022-08-13] MEDS ORDERED: hydrALAZINE HCL 25 MG TAB PO PRN (14:45)
[2022-08-13] MEDS ORDERED: IBUPROFEN 400 MG TAB PO STA (14:48)
[2022-08-13] MEDS: traZODone HCL 100 MG TAB PO SCH (19:54)
[2022-08-14] MEDS: KETOROLAC 15 MG/ML 1 ML VIAL IVP PRN ×2 (06:51→20:12)
--- NOTE | 2022-08-14 07:48 | P.PN ---
Subjective Progress Note Date: 08/13/22 Patient was seen for a follow-up. Patient states that she is noticing blurred vision. She feels slightly worse. Patient underwent ultrasound of the left lower extremity, negative for DVT. Patient had MRI of the brain, which confirmed a new lesion in the right frontal subcortical region, as compared to the previous MRI, although it was nonenhancing. Objective - Vital Signs Vital signs: Vital Signs Temp 98.5 F 08/13/22 12:54 Pulse 59 L 08/13/22 12:54 Resp 20 08/13/22 12:54 BP 171/98 08/13/22 12:54 Pulse Ox 97 08/13/22 12:54 FiO2 Intake & Output 08/12/22 08/13/22 08/13/22 18:59 06:59 18:59 Intake Total 3730 1560 Balance 3730 1560 Intake: Intake, IV Titration 3370 1560 Amount Sodium Chloride 0.9% 1, 3120 1560 000 ml @ 130 mls/hr IV . [id number] [facility] Rx#:[id number] methylPREDNISolone SOD 250 SUCCIN 1,000 mg In Sodium Chloride 0.9% 250 ml @ 250 mls/hr IVPB DAILY [facility] Rx#:[id number] Oral 360 - Exam Patient's mental status, speech and language functions are normal. Muscle strength significant for left hip flexion weakness. Patient has ataxia for [id number] testing with the left leg, not right leg. Patient has bilateral Babinski. - Labs CBC & Chem 7: 08/10/22 15:25 08/11/22 07:11 Assessment and Plan Assessment: * 41-year-old female with relapsing remitting multiple sclerosis, feels weakness in the left leg, with tendency to fall for the last 1 month. Patient has acute MS exacerbation. * Last exacerbation 01/18/2022. * Hypercoagulable state, on anticoagulation * Vaping Plan: * MRI of brain with and without contrast revealed new lesion is identified right frontal lobe adjacent to the anterior horn of the right lateral ventricle measuring 1.3 x 1.4 x 1.2 cm. This is not hyperintense on diffusion-weighted images, and did not enhance with contrast administration. This is likely subacute. I personally reviewed MRI of the brain, and also reviewed it with patient in her room. Patient has MS exacerbation. Patient will receive Solu-Medrol 1 g IVPB daily for 2 more days, (total 5 days). * Patient is scheduled for Ocrevus infusion in September 2022. Patient was recommended to follow up with her neurologist in 2-4 weeks after discharge. * B12 397, folate 7.3. We will start B12 and folate replacement. * PT and OT.
[2022-08-14] MEDS: methylPREDNISolone SOD SUCCIN 1,000 MG in SODIUM CHLORIDE 0.9% 250 ML IVPB SCH (08:46)
[2022-08-14] MEDS: CITALOPRAM HYDROBROMIDE 20 MG TAB PO SCH (08:46)
[2022-08-14] MEDS: DICYCLOMINE 20 MG TAB PO SCH ×3 (08:46→23:54)
[2022-08-14] MEDS: NICOTINE 21MG/24HR PATCH TRANSDERM SCH (08:46)
[2022-08-14] MEDS: CHOLECALCIFEROL 25 MCG (1000 IU) TABLET PO SCH (08:46)
[2022-08-14] MEDS: hydrOXYzine pamoate 25 MG CAP PO SCH ×3 (08:46→20:10)
[2022-08-14] MEDS: FAMOTIDINE 20 MG TAB PO SCH ×2 (08:46→20:10)
[2022-08-14] MEDS: APIXABAN 5 MG TAB PO SCH ×2 (08:47→20:10)
[2022-08-14] MEDS: busPIRone HCl 10 MG TAB PO SCH ×3 (08:47→20:10)
[2022-08-14] MEDS: FOLIC ACID 1 MG TAB PO SCH (08:47)
[2022-08-14] MEDS: GABAPENTIN 100 MG CAP PO SCH ×2 (08:47→20:10)
[2022-08-14] MEDS: CYANOCOBALAMIN 500 MCG TAB PO SCH (08:47)
--- NOTE | 2022-08-14 11:22 | P.PN ---
Subjective This is a pleasant 41 years old female with past medical history of Pulmonary Embolus on blood thinner, Rheumatoid Arthritis (RA), MS, optic neuritis, chronic low back pain/bulging discs, possible ventral hernia, past meth abuse/clean for 18 months, Anxiety, Depression, Pt currently staying at [facility] d/t was homeless and at higher risk to relapse with meth addiction. Past rehab for meth addiction/clean for [address], she gets to app by bus or her sister. She is otherwise independent. pt states she has fallen 4 times over the past few days. Yesterday she fell twice, second time was while she is in the stairs so she decided to come to the hospital. Patient has been complaining from dizziness over 1-1.5 weeks, no vertigo only one closes her eyes, no presyncope. She described it as nonspecific dizziness. No headache. No new weakness or numbness. She has persistent some mild left leg hemiparesis and chronic numbness and she doesn't feel her left foot since last time admitted to the hospital with MS exacerbation about 20 years ago. pt arrives for left hip and arm pain after she fell but there is no restriction of movement and x-ray were negative. Patient denies any other specific complaints, no chest pain or dyspnea, no coughing. No loss of consciousness or syncope. No urinary or GI symptoms like no dysuria or vomiting or diarrhea. No abdominal pain. Alert/double vision, no slurred speech she vapes nicotine and she was counseled to quit and she agrees to the nicotine patch but she declines alcohol or illicit drugs She follows up with Dr. Cardoso for MS problem, he is in [facility], next appointment supposed to be this September Vitals are stable, patient is afebrile. Labs reviewed showing unremarkable CBC, BMP, liver enzymes. Urineanalysis is negative. coronavirus and influenza viruses are detected CT of the head and cervical spine: No acute process in either image. 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 Spondylosis at C5-C6 Left forearm x-ray: No acute process Hip and left hip x-ray: Normal exam per Radiologist On admission patient received Dilaudid, Reglan and placed on Toradol and normal saline Patient admitted with neurology consult 08/12/2022 Patient sitting persistent lightheadedness although some improvement, also she has worsened left leg weakness and pain. She's continued on IV Solu-Medrol 1000 mg daily, tomorrow his last dose. We will check ultrasound of the left leg Possible discharge in 24-48 hours if she keeps improving 08/13/2022 Patient still complaining of from lightheadedness and left leg weakness and numbness although her left leg problems are mostly chronic. She still on IV Solu-Medrol for presumed MS exacerbation. Tomorrow his last dose. MRI of the brain is requested and is pending. Ultrasound of the left leg is negative for DVT. Vitamin B12 and folate replacement therapy initiated. Patient evaluated by PT/OT and tolerated that well, home is recommended for her. Patient denied any lightheadedness or dizziness with activity lower IV fluids to 75 mL/h 08/14/2022 Patient still complaining of from lightheadedness as the only new complaint is she states. Patient mentioned that her left leg weakness today is at her chronic level, no new worsening or numbness in her left leg. No other neurological complaints as per patient. MRI of the brain done showing a new lesion for multiple sclerosis besides 2-3 lesions. I discussed the case with neurology service, we going to continue with IV steroids today and tomorrow, possible discharge tomorrow if she keeps improving and doing well Blood pressure elevation secondary to steroid effect, we will monitor closely Objective - Vital Signs Vital signs: Vital Signs Temp 98.3 F 08/14/22 07:12 Pulse 61 08/14/22 07:12 Resp 17 08/14/22 07:12 BP 166/92 08/14/22 07:12 Pulse Ox 96 08/14/22 07:12 FiO2 Intake & Output 08/13/22 08/14/22 08/14/22 18:59 06:59 18:59 Intake Total 1310 118 Balance 1310 118 Intake: Intake, IV Titration 1310 Amount Sodium Chloride 0.9% 1, 1060 000 ml @ 75 mls/hr IV . [id number] [facility] Rx#:[id number] methylPREDNISolone SOD 250 SUCCIN 1,000 mg In Sodium Chloride 0.9% 250 ml @ 250 mls/hr IVPB DAILY [facility] Rx#:[id number] Oral 118 Other: Voiding Method Toilet # Voids 1 - Exam GENERAL: The patient is alert and oriented x3, not in any acute distress. Well developed, well nourished. HEENT: Pupils are round and equally reacting to light. EOMI. No scleral icterus. No conjunctival pallor. Normocephalic, atraumatic. No pharyngeal erythema. No thyromegaly. CARDIOVASCULAR: S1 and S2 present. No murmurs, rubs, or gallops. PULMONARY: Chest is clear to auscultation, no wheezing or crackles. ABDOMEN: Soft, nontender, nondistended, normoactive bowel sounds. No palpable organomegaly. MUSCULOSKELETAL: No joint swelling or deformity. EXTREMITIES: No cyanosis, clubbing, or pedal edema. -NEUROLOGICAL: Gross neurological examination did not reveal any focal deficits. Left leg weakness, looks chronic with slight recent worsening. Patient SKIN: No rashes. no petechiae. 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 Continue same treatment. Continue with symptomatic treatment. Resume home medication. Monitor labs and vitals. DVT and GI prophylaxis. Further recommendations as per clinical course of the patient DVT prophylaxis: On Eliquis GI Prophylaxis: Pepcid PT/OT: Pending Prognosis is guarded
[2022-08-14] MEDS: traZODone HCL 100 MG TAB PO SCH (20:10)
[2022-08-15] MEDS: KETOROLAC 15 MG/ML 1 ML VIAL IVP PRN ×2 (05:17→11:25)
[2022-08-15 07:59] VITALS: RESP 18
[2022-08-15] MEDS: APIXABAN 5 MG TAB PO SCH (07:59)
[2022-08-15] MEDS: GABAPENTIN 100 MG CAP PO SCH (07:59)
[2022-08-15] MEDS: hydrOXYzine pamoate 25 MG CAP PO SCH (07:59)
[2022-08-15] MEDS: CITALOPRAM HYDROBROMIDE 20 MG TAB PO SCH (07:59)
[2022-08-15] MEDS: FAMOTIDINE 20 MG TAB PO SCH (07:59)
[2022-08-15] MEDS: busPIRone HCl 10 MG TAB PO SCH (07:59)
[2022-08-15] MEDS: CYANOCOBALAMIN 500 MCG TAB PO SCH (07:59)
[2022-08-15] MEDS: CHOLECALCIFEROL 25 MCG (1000 IU) TABLET PO SCH (07:59)
[2022-08-15] MEDS: DICYCLOMINE 20 MG TAB PO SCH (07:59)
[2022-08-15] MEDS: NICOTINE 21MG/24HR PATCH TRANSDERM SCH (08:00)
[2022-08-15] MEDS: methylPREDNISolone SOD SUCCIN 1,000 MG in SODIUM CHLORIDE 0.9% 250 ML IVPB SCH (08:00)
[2022-08-15] MEDS: FOLIC ACID 1 MG TAB PO SCH (08:15)
[2022-08-15 09:30] VITALS: BMI 36.5
[2022-08-15] MEDS ORDERED: amLODIPine 5 MG TAB PO SCH (11:00)
--- NOTE | 2022-08-15 11:18 | P.PN ---
Subjective Progress Note Date: 08/14/22 Patient was seen for a follow-up. Patient states her balance is not very well. Her left leg feels very tight, her left hand also feels numb. Her whole body hurts. She feels "drained". She states that she does not feel well, "not like herself". She is doing a lot of thinking. She stumbles. Physical therapy is has cleared patient for discharge. Patient underwent ultrasound of the left lower extremity, negative for DVT. Patient had MRI of the brain, which confirmed a new lesion in the right frontal subcortical region, as compared to the previous MRI, although it was nonenhancing. Objective - Vital Signs Vital signs: Vital Signs Temp 97.9 F 08/14/22 12:10 Pulse 76 08/14/22 12:10 Resp 18 08/14/22 12:10 BP 156/94 08/14/22 12:10 Pulse Ox 97 08/14/22 12:10 FiO2 Intake & Output 08/13/22 08/14/22 08/14/22 18:59 06:59 18:59 Intake Total 1310 118 Balance 1310 118 Intake: Intake, IV Titration 1310 Amount Sodium Chloride 0.9% 1, 1060 000 ml @ 75 mls/hr IV . [id number] [facility] Rx#:[id number] methylPREDNISolone SOD 250 SUCCIN 1,000 mg In Sodium Chloride 0.9% 250 ml @ 250 mls/hr IVPB DAILY [facility] Rx#:[id number] Oral 118 Other: Voiding Method Toilet # Voids 1 3 # Bowel Movements 1 - Exam Patient's mental status, speech and language functions are normal. Muscle strength significant for left hip flexion weakness. Patient has ataxia for [id number] testing with the left leg, not right leg. Patient has bilateral Babinski. - Labs CBC & Chem 7: 08/10/22 15:25 08/11/22 07:11 Assessment and Plan Assessment: * 41-year-old female with relapsing remitting multiple sclerosis, feels weakness in the left leg, with tendency to fall for the last 1 month. Patient has ac elem MS exacerbation. * Last exacerbation 01/18/2022. * Hypercoagulable state, on anticoagulation * Vaping Plan: * MRI of brain with and without contrast revealed new lesion is identified right frontal lobe adjacent to the anterior horn of the right lateral ventricle measuring 1.3 x 1.4 x 1.2 cm. This is not hyperintense on diffusion-weighted images, and did not enhance with contrast administration. This is likely subacute. I personally reviewed MRI of the brain, and also reviewed it with patient in her room. Patient has MS exacerbation. Patient will receive Solu-Medrol 1 g IVPB daily for 2 more days, (total 5 days). * Patient to receive last dose of Solu-Medrol in the morning (Thursday). Thereafter patient can be discharged on prednisone 60 mg daily for 5 days, then decrease by 10 mg daily until off. * Patient is scheduled for Ocrevus infusion in September 2022. Patient was recommended to follow up with her neurologist in 2-4 weeks after discharge. She has an appointment with her neurologist in early September 2022. * B12 397, folate 7.3. We will start B12 and folate replacement. * PT and OT.
[2022-08-15 12:48] VITALS: BP 136/83; PULSE 63; TEMP 97.5
--- NOTE | 2022-08-15 21:40 | P.DS ---
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 Past rehab for meth addiction/clean for 7 months. Pt does not drive, she gets to [facility] by bus or her sister. She is otherwise independent. pt states she has fallen 4 times over the past few days. Associated with significant lightheadedness, MS exacerbation is suspected and she's been evaluated by neurologist.MRI of the brain done showing a new lesion for multiple sclerosis besides 2-3 old lesions. She was treated with IV Solu-Medrol injection daily 5 days she finishes treatment showing partial improvement in her symptoms however clinically she is stable and she's been consulted for discharge as she was cleared to go home today by neurologist service per my discussion with him. Patient is also agreeable to go home. She denies any other symptoms, no chest pain or dyspnea or GI or urinary symptoms. She has chronic left leg weakness and some pain but ultrasound was negative for the venous thrombosis, mostly is related to residual effect from multiple sclerosis. Patient was cleared for discharge by neurologist on tapered steroids 60 mg of prednisone 5 days tapered down by 10 mg thereafter till total discontinuation. Prescription provided for the patient. Patient denies any other new symptoms. Problems and management plan were discussed with the patient and he verbalized understanding and acceptance Patient was found stable and can be discharged home in guarded prognosis however he needs follow-up as an outpatient. Patient was instructed to follow up with PCP Dr. gu within one week and patient agrees Patient was instructed to follow up with her MS neurologist Dr. Cardoso in [place], she has his contact information and she is willing to follow up with him in 1-2 weeks as instructed. Physical exam Gen: patient is a AAOx3, no distress CVS: S1-S2, RRR, no murmur Lungs: B/L CTA, no wheezing Abdomen: soft, no distention, no tenderness, positive bowel sounds Extremity: no leg edema or induration -Neurology: Cranial nerves are grossly intact. Motor: Left leg weakness, mild, sensation is intact. Time spent more than 35 minutes Plan - Discharge Summary Discharge Rx Participant: No New Discharge Prescriptions: New Folic Acid 1 mg PO DAILY #30 tab amLODIPine [Norvasc] 5 mg PO DAILY #30 tab Famotidine [Pepcid] 20 mg PO BID #60 tab Cyanocobalamin [Vitamin B-12] 1,000 mcg PO DAILY #60 tab predniSONE 10 mg PO DIRECTED #105 tab Continue traZODone HCL [Desyrel] 100 mg PO HS Apixaban [Eliquis] 5 mg PO BID Gabapentin [Neurontin] 100 mg PO BID Dicyclomine [Bentyl] 20 mg PO TID polyethylene glycoL 3350 [Miralax] 17 gm PO DAILY PRN PRN Reason: Constipation Cholecalciferol [Vitamin D3 (25 Mcg = 1000 Iu)] 50 mcg PO DAILY hydrOXYzine pamoate [hydrOXYzine PAMOATE] 25 mg PO TID Ondansetron Odt [Zofran ODT] 4 mg PO Q8HR PRN PRN Reason: Nausea Fluticasone Nasal [place] [Flonase Nasal [place]] 2 spr EA NOSTRIL DAILY PRN PRN Reason: Allergy Symptoms Citalopram Hydrobromide [CeleXA] 40 mg PO DAILY busPIRone HCl [Buspar] 10 mg PO TID Discharge Medication List traZODone HCL [Desyrel] 100 mg PO HS 09/06/21 [History] Apixaban [Eliquis] 5 mg PO BID 01/15/22 [History] Cholecalciferol [Vitamin D3 (25 Mcg = 1000 Iu)] 50 mcg PO DAILY 07/05/22 [History] Citalopram Hydrobromide [CeleXA] 40 mg PO DAILY 07/05/22 [History] Fluticasone Nasal [place]ius [Flonase Nasal [place]] 2 spr EA NOSTRIL DAILY PRN 07/05/22 [History] Gabapentin [Neurontin] 100 mg PO BID 07/05/22 [History] Ondansetron Odt [Zofran ODT] 4 mg PO Q8HR PRN 07/05/22 [History] hydrOXYzine pamoate [hydrOXYzine PAMOATE] 25 mg PO TID 07/05/22 [History] polyethylene glycoL 3350 [Miralax] 17 gm PO DAILY PRN 07/05/22 [History] Dicyclomine [Bentyl] 20 mg PO TID 08/10/22 [History] busPIRone HCl [Buspar] 10 mg PO TID 08/10/22 [History] Cyanocobalamin [Vitamin B-12] 1,000 mcg PO DAILY #60 tab 08/15/22 [Rx] Famotidine [Pepcid] 20 mg PO BID #60 tab 08/15/22 [Rx] Folic Acid 1 mg PO DAILY #30 tab 08/15/22 [Rx] amLODIPine [Norvasc] 5 mg PO DAILY #30 tab 08/15/22 [Rx] predniSONE 10 mg PO DIRECTED #105 tab 08/15/22 [Rx] Follow up Appointment(s)/Referral(s): Dary La MD [Primary Care Provider] - 09/01/22 1:00 pm (Appointment that was scheduled for the is now on the at 1:00.) Patient Instructions/Handouts: Famotidine (By mouth), Prednisone (By mouth), Folic Acid (By mouth), Amlodipine (By mouth), Vitamin B-12 (By mouth), Multiple Sclerosis (DC), Fall Prevention (DC) Activity/Diet/Wound Care/Special Instructions: low carbohydrate diet 1600 kcal per day activity is restricted till you see your doctor We recommend he follow-up with your neurologist Dr. Cardoso in [place], you have the contact information as informed the medical team, please call to make an appointment within 7-10 days. Discharge Disposition: HOME SELF-CARE
== END 2022-08-15 16:01 | disposition home or self-care (01) | DRG 59 ==
LOC: EC 14:39 → 5NMEDONC 18:05
PROVIDERS: ADMIT Internal Medicine; ATTEND Internal Medicine
DX: G35 Multiple sclerosis (principal); D68.59 Other primary thrombophilia; H46.9 Unspecified optic neuritis; F17.290 Nicotine dependence, other tobacco product, uncomplicated; F15.21 Other stimulant dependence, in remission; Z59.00 Homelessness unspecified; R29.6 Repeated falls; M54.9 Dorsalgia, unspecified; G89.29 Other chronic pain; I10 Essential (primary) hypertension; F11.11 Opioid abuse, in remission; M25.552 Pain in left hip; Z87.440 Personal history of urinary (tract) infections; Z79.01 Long term (current) use of anticoagulants; Z88.0 Allergy status to penicillin; F32.A Depression, unspecified; M79.632 Pain in left forearm; F41.9 Anxiety disorder, unspecified; W10.9XXA Fall (on) (from) unspecified stairs and steps, initial encounter; G83.14 Monoplegia of lower limb affecting left nondominant side; M06.9 Rheumatoid arthritis, unspecified; M47.9 Spondylosis, unspecified; Z20.822 Contact with and (suspected) exposure to COVID-19; T38.0X5A Adverse effect of glucocorticoids and synthetic analogues, initial encounter; Z79.899 Other long term (current) drug therapy; Z86.711 Personal history of pulmonary embolism; Z86.73 Personal history of transient ischemic attack (TIA), and cerebral infarction without residual deficits; Z91.81 History of falling
CPT/HCPCS: 36415; 70450; 70553; 72125; 73502; 80048; 80053; 81003; 82607; 82746; 83921; 84443; 84703; 85025; 87636

== ENCOUNTER 2022-10-03 14:19 | Emergency (ER) | payer OTHER ==
[2022-10-03 14:38] VITALS: BP 131/74; PULSE 106; RESP 20; TEMP 98
--- NOTE | 2022-10-03 15:19 | ED ---
Allergic Reaction HPI - General Chief complaint: Allergic Reaction Stated complaint: allergic reaction Time Seen by Provider: 10/03/22 14:47 Source: patient, RN notes reviewed Mode of arrival: ambulatory Limitations: no limitations - History of Present Illness Initial Comments: Patient is a 41-year-old female presenting to the emergency room with complaints of waking today with facial swelling and redness to her cheeks along with hot flashes after receiving Orecvus infusion by her neurologist yesterday. She attempted to contact her neurologist prior to leaving for the hospital and was just able to reach him. He advised her that the reaction she is experiencing is common and to continue taking Benadryl. She denies any difficulty in breathing or difficulty in swallowing. She denies any pruritus, chest pain, abdominal pain, nausea, vomiting, fevers or chills. In addition to her multiple sclerosis she has a past medical history significant chronic lower back pain, optic neuritis secondary to MS, protein C and protein S deficiencies and pulmonary emboli. - Related Data Home Medications Medication Instructions Recorded Confirmed traZODone HCL [Desyrel] 100 mg PO HS 09/06/21 09/01/22 Cholecalciferol [Vitamin D3 (25 50 mcg PO DAILY 07/05/22 09/01/22 Mcg = 1000 Iu)] Citalopram Hydrobromide [CeleXA] 40 mg PO DAILY 07/05/22 09/01/22 Fluticasone Nasal [place] [Flonase 2 spr EA NOSTRIL DAILY PRN 07/05/22 09/01/22 Nasal [place]] Gabapentin [Neurontin] 100 mg PO BID 07/05/22 09/01/22 Ondansetron Odt [Zofran ODT] 4 mg PO Q8HR PRN 07/05/22 09/01/22 hydrOXYzine pamoate [hydrOXYzine 25 mg PO TID 07/05/22 09/01/22 PAMOATE] polyethylene glycoL 3350 [Miralax] 17 gm PO DAILY PRN 07/05/22 09/01/22 Dicyclomine [Bentyl] 20 mg PO TID 08/10/22 09/01/22 busPIRone HCl [Buspar] 10 mg PO TID 08/10/22 09/01/22 predniSONE See Taper PO DIRECTED 09/01/22 09/01/22 Previous Rx's Medication Instructions Recorded Cyanocobalamin [Vitamin B-12] 1,000 mcg PO DAILY #60 tab 08/15/22 Famotidine [Pepcid] 20 mg PO BID #60 tab 08/15/22 Folic Acid 1 mg PO DAILY #30 tab 08/15/22 amLODIPine [Norvasc] 5 mg PO DAILY #30 tab 08/15/22 Allergies Allergy/AdvReac Type Severity Reaction Status Date / Time vancomycin Allergy Severe Rash/Hives, Verified 10/03/22 14:38 itching, burning Review of Systems ROS Statement: Those systems with pertinent positive or pertinent negative responses have been documented in the HPI. ROS Other: All systems not noted in ROS Statement are negative. Past Medical History Past Medical History: Blood Disorder, Eye Disorder, Neurologic Disorder, Pulmonary Embolus (PE), Rheumatoid Arthritis (RA), Vascular Disorder Additional Past Medical History / Comment(s): MS, optic neuritis, proficiency C & S disorder, PE/pt cannot recall laterallity, aortic calcification, chin abscess/sepsis, UTI, chronic low back pain/bulging discs, possible ventral hernia, past meth abuse/clean for 19 months. History of Any Multi-Drug Resistant Organisms: MRSA Date of last positivie culture/infection: 04/09/22 MDRO Source:: Buttock Past Surgical History: Appendectomy Additional Past Surgical History / Comment(s): ectopic (2/ L fallopian tube rupture with surgery, R labia abscess/I&D Past Anesthesia/Blood Transfusion Reactions: No Reported Reaction Past Psychological History: Anxiety, Depression Smoking Status: Former smoker, Vaper Past Alcohol Use History: None Reported Past Drug Use History: Methamphetamine - Past Family History Father Family Medical History: No Reported History Mother History Unknown: Yes General Exam - General Exam Comments Initial Comments: GENERAL: No acute distress, well developed, well nourished. HEENT: Normocephalic, atraumatic. Pupils equal, round, reactive to light. Moist mucous membranes. Mild bilateral facial swelling isolated to bilateral cheeks with erythema. No periorbital edema or injection. Pharynx without edema. LUNGS: No respiratory distress. Clear to auscultation, no adventitious sounds, no use of accessory muscles. HEART: Regular rate and rhythm without murmur, rub, or gallop. ABDOMEN: Normal bowel sounds. Soft, non-tender, non-distended. BACK: Normal inspection. EXTREMITIES: No edema. No tenderness. Moves all extremities. NEUROLOGIC: Alert & oriented x 3. CN II-XII grossly intact. PSYCHIATRIC: Normal affect and behavior. DERMATOLOGIC: Bilateral cheeks with mild blanchable erythema near otherwise skin intact, without rashes or lesions noted. Limitations: no limitations Course Vital Signs 10/03/22 14:35 Temperature 98.0 F Pulse Rate 106 H Respiratory 20 Rate Blood Pressure 131/74 O2 Sat by Pulse 96 Oximetry Medical Decision Making - Medical Decision Making Was pt. sent in by a medical professional or institution (, VALDEZ, SENIOR DIRECTOR MARKETING, urgent care, hospital, or usp...) When possible be specific @ -No Did you speak to anyone other than the patient for history (EMS, parent, family, police, friend...)? What history was obtained from this source @ -Spouse Did you review nursing and triage notes (agree or disagree)? Why? @ -I reviewed and agree with nursing and triage notes Were old charts reviewed (outside hosp., previous admission, EMS record, old EKG, old radiological studies, urgent care reports/EKG's, usp records)? Report findings @ -No old charts were reviewed Differential Diagnosis (chest pain, altered mental status, abdominal pain women, abdominal pain men, vaginal bleeding, weakness, fever, dyspnea, syncope, headache, dizziness, GI bleed, back pain, seizure, CVA, palpatations, mental health, musculoskeletal)? @ -not applicable EKG interpreted by me (3pts min.). @ -None done X-rays interpreted by me (1pt min.). @ -None done CT interpreted by me (1pt min.). @ -None done U/S interpreted by me (1pt. min.). @ -None done What testing was considered but not performed or refused? (CT, X-rays, U/S, labs)? Why? @ -Chest x-ray considered but deferred due to clear lung sounds without airway compromise. What meds were considered but not given or refused? Why? @ -Steroids considered but deferred due to recent Ocrevus infusion and potential decreased efficacy of medication with steroid administration. Did you discuss the management of the patient with other professionals (professionals i.e. , VALDEZ, SENIOR DIRECTOR MARKETING, lab, RT, psych nurse, social secretary, armature winder repair helper, teacher, bank compliance officer, outsole caser)? Give summary @ -No Was smoking cessation discussed for >3mins.? @ -No Was critical care preformed (if so, how long)? @ -No Were there social determinants of health that impacted care today? How? (Homelessness, low income, unemployed, alcoholism, drug addiction, transportation, low edu. Level, literacy, decrease access to med. care, prison, rehab)? @ -No Was there de-escalation of care discussed even if they declined (Discuss DNR or withdrawal of care, Hospice)? DNR status @ -No What co-morbidities impacted this encounter? (DM, HTN, Smoking, COPD, CAD, Cancer, CVA, ARF, Chemo, Hep., AIDS, mental health diagnosis, sleep apnea, morbid obesity)? @ -Multiple sclerosis with recent Ocrevus infusion Was patient admitted / discharged? Hospital course, mention meds given and route, prescriptions, significant lab abnormalities, going to OR and other pertinent info. @ -41-year-old female presenting to the emergency room with complaints of ALLERGIC reaction to recent Ocrevus infusion. No airway obstruction, disseminated rash or other systemic symptoms from ALLERGIC reaction. Benadryl taken 50 mg prior to arrival. Will defer steroid treatment in the absence of airway compromise. No indication for diagnostic imaging or laboratory studies at this time. Advised continuation of Benadryl [id number] for the next 24 hours then as needed. Encouraged follow-up with primary care provider and neurologist. Signs and symptoms requiring immediate return to the emergency room discussed at length. Questions and concerns answered. Will discharge home in stable condition with continued use of antihistamine for ALLERGIC reaction and strict return parameters. Undiagnosed new problem with uncertain prognosis? @ -No Drug Therapy requiring intensive monitoring for toxicity (Heparin, Nitro, Insulin, Cardizem)? @ -No Were any procedures done? @ -No Diagnosis/symptom? @ -ALLERGIC reaction to drug Acute, or Chronic, or Acute on Chronic? @ -Acute Uncomplicated (without systemic symptoms) or Complicated (systemic symptoms)? @ -Uncomplicated Side effects of treatment? @ -No Exacerbation, Progression, or Severe Exacerbation? @ -No Poses a threat to life or bodily function? How? (Chest pain, [place], [place], pneumonia, PE, COPD, DKA, ARF, appy, cholecystitis, CVA, Diverticulitis, Homicidal, Suicidal, threat to staff... and all critical care pts) @ -No Case discussed with Dr. Giron. Disposition Clinical Impression: Allergic reaction to drug Disposition: HOME SELF-CARE Condition: Stable Instructions (If sedation given, give patient instructions): General Allergic Reaction (ED) Additional Instructions: Please continue to utilize [id number] Benadryl 50 mg every 6-8 hours [id number] for the next 24 hours then as needed for ALLERGIC reaction. Please follow-up with your primary care provider and neurologist. If any difficulty in breathing or swallowing occurs please return to the emergency room. Please return to the Emergency Department if symptoms worsen or any other concerns. Is patient prescribed a controlled substance at d/c from ED?: No Referrals: Dary La MD [Primary Care Provider] - 1-2 days Time of Disposition: 15:10
== END 2022-10-03 15:25 | disposition home or self-care (01) ==
LOC: EC 14:19
DX: R22.0 Localized swelling, mass and lump, head (principal); T45.0X5A Adverse effect of antiallergic and antiemetic drugs, initial encounter; F41.9 Anxiety disorder, unspecified; F32.A Depression, unspecified; F17.290 Nicotine dependence, other tobacco product, uncomplicated; Z88.1 Allergy status to other antibiotic agents
CPT/HCPCS: 99283

== ENCOUNTER 2022-10-14 11:58 | Emergency (ER) | payer OTHER ==
[2022-10-14 12:04] VITALS: TEMP 97.9
[2022-10-14] MEDS ORDERED: SODIUM CHLORIDE 0.9% 500 ML 500 ML IV STA (12:36)
[2022-10-14] MEDS ORDERED: KETOROLAC 15 MG/ML 1 ML VIAL IVP STA (12:36)
--- NOTE | 2022-10-14 12:58 | ED ---
Abdominal Pain HPI - General Chief Complaint: Abdominal Pain Stated Complaint: ABD PAIN Time Seen by Provider: 10/14/22 12:05 Source: patient Mode of arrival: ambulatory Limitations: no limitations - History of Present Illness Initial Comments: This patient is a 41-year-old woman who presents with complaint of left lower quadrant crampy pains. The patient states that they had come on over the course of last night/this morning. She states the pains are similar to a previous tubal . She has had 2 in the past. She also notes that she is overdue for her menstrual period By approximately one week. The patient does note that the pain seems to be a little worse with eating or drinking. No relieving factors. MD Complaint: abdominal pain -: hour(s) Location: LLQ Migration to: no migration Severity: moderate Quality: cramping Consistency: constant Improves With: nothing Worsens With: eating Associated Symptoms: denies other symptoms - Related Data LMP (females 10-50): 1 month Home Medications Medication Instructions Recorded Confirmed traZODone HCL [Desyrel] 100 mg PO HS 09/06/21 10/14/22 Cholecalciferol [Vitamin D3 (25 50 mcg PO DAILY 07/05/22 10/14/22 Mcg = 1000 Iu)] Citalopram Hydrobromide [CeleXA] 40 mg PO DAILY 07/05/22 10/14/22 Fluticasone Nasal [place] [Flonase 2 spr EA NOSTRIL DAILY PRN 07/05/22 10/14/22 Nasal [place]] Gabapentin [Neurontin] 100 mg PO TID 07/05/22 10/14/22 Ondansetron Odt [Zofran ODT] 4 mg PO Q8HR PRN 07/05/22 10/14/22 hydrOXYzine pamoate [hydrOXYzine 25 mg PO TID 07/05/22 10/14/22 PAMOATE] polyethylene glycoL 3350 [Miralax] 17 gm PO DAILY PRN 07/05/22 10/14/22 Dicyclomine [Bentyl] 20 mg PO TID 08/10/22 10/14/22 busPIRone HCl [Buspar] 10 mg PO BID 08/10/22 10/14/22 Citalopram Hydrobromide [CeleXA] 20 mg PO DAILY 10/14/22 10/14/22 Previous Rx's Medication Instructions Recorded Cyanocobalamin [Vitamin B-12] 1,000 mcg PO DAILY #60 tab 08/15/22 Famotidine [Pepcid] 20 mg PO BID #60 tab 08/15/22 Folic Acid 1 mg PO DAILY #30 tab 08/15/22 amLODIPine [Norvasc] 5 mg PO DAILY #30 tab 08/15/22 Allergies Allergy/AdvReac Type Severity Reaction Status Date / Time vancomycin Allergy Severe Rash/Hives, Verified 10/14/22 13:42 itching, burning Review of Systems ROS Statement: Those systems with pertinent positive or pertinent negative responses have been documented in the HPI. ROS Other: All systems not noted in ROS Statement are negative. Constitutional: Denies: fever, chills ENT: Denies: congestion Respiratory: Denies: cough, dyspnea Cardiovascular: Denies: chest pain, palpitations, edema Gastrointestinal: Reports: abdominal pain. Denies: nausea, vomiting, diarrhea, constipation, melena, hematochezia Genitourinary: Reports: abnormal menses. Denies: dysuria, hematuria, discharge Musculoskeletal: Denies: back pain Skin: Denies: rash Neurological: Denies: headache, weakness Past Medical History Past Medical History: Blood Disorder, Eye Disorder, Neurologic Disorder, Pulmonary Embolus (PE), Rheumatoid Arthritis (RA), Vascular Disorder Additional Past Medical History / Comment(s): MS, optic neuritis, proficiency C & S disorder, PE/pt cannot recall laterallity, aortic calcification, chin abscess/sepsis, UTI, chronic low back pain/bulging discs, possible ventral hernia, past meth abuse/clean for 19 months. History of Any Multi-Drug Resistant Organisms: MRSA Date of last positivie culture/infection: 04/09/22 MDRO Source:: Buttock Past Surgical History: Appendectomy Additional Past Surgical History / Comment(s): ectopic (2/ L fallopian tube rupture with surgery, R labia abscess/I&D Past Anesthesia/Blood Transfusion Reactions: No Reported Reaction Past Psychological History: Anxiety, Depression Smoking Status: Former smoker, Vaper Past Alcohol Use History: None Reported Past Drug Use History: Methamphetamine - Past Family History Father Family Medical History: No Reported History Mother History Unknown: Yes General Exam Limitations: no limitations General appearance: alert, in no apparent distress Head exam: Present: atraumatic, normocephalic Eye exam: Present: normal appearance. Absent: scleral icterus, conjunctival injection Neck exam: Present: normal inspection Respiratory exam: Present: normal lung sounds bilaterally. Absent: respiratory distress, wheezes, rales, rhonchi, stridor Cardiovascular Exam: Present: regular rate, normal rhythm, normal heart sounds. Absent: systolic murmur, diastolic murmur, rubs, gallop GI/Abdominal exam: Present: soft. Absent: distended, tenderness, guarding, rebound, rigid, mass, pulsatile mass, hernia Extremities exam: Present: normal inspection, normal capillary refill. Absent: pedal edema, calf tenderness Back exam: Present: normal inspection. Absent: CVA tenderness (R), CVA tenderness (L) Neurological exam: Present: alert Skin exam: Present: warm, dry, intact, normal color. Absent: rash Course Vital Signs 10/14/22 10/14/22 10/14/22 12:02 15:09 16:13 Temperature 97.9 F Pulse Rate 99 74 78 Respiratory 16 18 18 Rate Blood Pressure 126/78 109/74 111/72 O2 Sat by Pulse 97 97 96 Oximetry Medical Decision Making - Medical Decision Making This patient is 41-year-old woman here with pelvic pain that she found very similar to previous ectopic . The patient's serum test is negative. I reviewed the results with the patient and she was feeling better. She was coming to feel that what she was experiencing more consistent with severe menstrual pains. We discussed ultrasound are related to poor vision but at this point patient feeling better and wanted to go home. Discussed appropriate further care and follow-up including return parameters. Was pt. sent in by a medical professional or institution (, PA, LICENSED CHEMICAL SPRAY TECHNICIAN, urgent care, hospital, or detention...) When possible be specific @ -[No] Did you speak to anyone other than the patient for history (EMS, parent, family, police, friend...)? What history was obtained from this source @ -[No] Did you review nursing and triage notes (agree or disagree)? Why? @ -[I reviewed and agree with nursing and triage notes] Were old charts reviewed (outside hosp., previous admission, EMS record, old EKG, old radiological studies, urgent care reports/EKG's, detention records)? Report findings @ -[No old charts were reviewed] Differential Diagnosis (chest pain, altered mental status, abdominal pain women, abdominal pain men, vaginal bleeding, weakness, fever, dyspnea, syncope, headache, dizziness, GI bleed, back pain, seizure, CVA, palpatations, mental health, musculoskeletal)? @ -[Differential Abdominal Pain Women: Appendicitis, Cholecystitis, diverticulosis, ischemic bowel, pancreatitis, hepatitis, UTI, gastroenteritis, AAA, incarcerated hernia, bowel obstruction, constipation, inflammatory bowel, hepatitis, peptic ulcer disease, splenic infarction, perforated viscus, vulvitis, ovarian torsion, PID, kidney stone, placenta abruption, this is not meant to be an all-inclusive list EKG interpreted by me (3pts min.). @ -[ X-rays interpreted by me (1pt min.). @ -[None done] CT interpreted by me (1pt min.). @ -[None done] U/S interpreted by me (1pt. min.). @ -[None done] What testing was considered but not performed or refused? (CT, X-rays, U/S, labs)? Why? @ -[None] What meds were considered but not given or refused? Why? @ -[None] Did you discuss the management of the patient with other professionals (professionals i.e. , PA, LICENSED CHEMICAL SPRAY TECHNICIAN, lab, RT, psych nurse, social service manager, city planning engineer, teacher, air intelligence officer, case briefer)? Give summary @ -[No] Was smoking cessation discussed for >3mins.? @ -[No] Was critical care preformed (if so, how long)? @ -[No] Were there social determinants of health that impacted care today? How? (Homelessness, low income, unemployed, alcoholism, drug addiction, transportation, low edu. Level, literacy, decrease access to med. care, correction, rehab)? @ -[No] Was there de-escalation of care discussed even if they declined (Discuss DNR or withdrawal of care, Hospice)? DNR status @ -[No] What co-morbidities impacted this encounter? (DM, HTN, Smoking, COPD, CAD, Cancer, CVA, ARF, Chemo, Hep., AIDS, mental health diagnosis, sleep apnea, morbid obesity)? @ -[None] Was patient admitted / discharged? Hospital course, mention meds given and route, prescriptions, significant lab abnormalities, going to OR and other pertinent info. @ -[Discharged Undiagnosed new problem with uncertain prognosis? @ -[No] Drug Therapy requiring intensive monitoring for toxicity (Heparin, Nitro, Insulin, Cardizem)? @ -[No] Were any procedures done? @ -[No] Diagnosis/symptom? @ -[Acute abdominal pain, uncomplicated Acute, or Chronic, or Acute on Chronic? @ -[default] Uncomplicated (without systemic symptoms) or Complicated (systemic symptoms)? @ -[default] Side effects of treatment? @ -[No] Exacerbation, Progression, or Severe Exacerbation? @ -[No] Poses a threat to life or bodily function? How? (Chest pain, [place], [place], pneumonia, PE, COPD, DKA, ARF, appy, cholecystitis, CVA, Diverticulitis, Homicidal, Suicidal, threat to staff... and all critical care pts) @ -[No] - Lab Data Result diagrams: 10/14/22 13:10 10/14/22 13:10 Lab Results 10/14/22 10/14/22 10/14/22 Range/Units 13:10 13:10 13:10 WBC 7.4 (3.8-10.6) k/uL RBC 4.28 (3.80-5.40) m/uL Hgb 12.5 (11.4-16.0) gm/dL Hct 37.7 (34.0-46.0) % MCV 88.2 (80.0-100.0) fL MCH 29.2 (25.0-35.0) pg MCHC 33.2 (31.0-37.0) g/dL RDW 13.6 (11.5-15.5) % Plt Count 304 (150-450) k/uL MPV 7.3 Neutrophils % 61 % Lymphocytes % 28 % Monocytes % 5 % Eosinophils % 3 % Basophils % 1 % Neutrophils # 4.5 (1.3-7.7) k/uL Lymphocytes # 2.1 (1.0-4.8) k/uL Monocytes # 0.4 (0-1.0) k/uL Eosinophils # 0.3 (0-0.7) k/uL Basophils # 0.1 (0-0.2) k/uL Sodium 137 (137-145) mmol/L Potassium 4.3 (3.5-5.1) mmol/L Chloride 107 (98-107) mmol/L Carbon Dioxide 23 (22-30) mmol/L Anion Gap 7 mmol/L BUN 10 (7-17) mg/dL Creatinine 0.69 (0.52-1.04) mg/dL Est GFR (CKD-EPI)AfAm >90 (>60 ml/min/1.73 sqM) Est GFR (CKD-EPI)NonAf >90 (>60 ml/min/1.73 sqM) Glucose 113 H (74-99) mg/dL Calcium 9.0 (8.4-10.2) mg/dL Total Bilirubin 0.4 (0.2-1.3) mg/dL AST 21 (14-36) U/L ALT 23 (4-34) U/L Alkaline Phosphatase 56 (38-126) U/L Total Protein 6.6 (6.3-8.2) g/dL Albumin 3.7 (3.5-5.0) g/dL Amylase 44 (30-110) U/L Lipase 84 (23-300) U/L HCG, Quant <2.4 mIU/mL Urine Color Yellow Urine Appearance Cloudy H (Clear) Urine pH 5.5 (5.0-8.0) Ur Specific [place] 1.030 (1.001-1.035) Urine Protein Trace H (Negative) Urine Glucose (UA) Negative (Negative) Urine Ketones Negative (Negative) Urine Blood Large H (Negative) Urine Nitrite Negative (Negative) Urine Bilirubin Negative (Negative) Urine Urobilinogen <2.0 (<2.0) mg/dL Ur Leukocyte Esterase Negative (Negative) Urine RBC 20 H (0-5) /hpf Urine WBC 3 (0-5) /hpf Ur Squamous Epith Cells 6 H (0-4) /hpf Calcium Oxalate Crystal Occasional H (None) /hpf Hyaline Casts 3 H (0-2) /lpf Urine Mucus Many H (None) /hpf Disposition Clinical Impression: Abdominal pain Disposition: HOME SELF-CARE Condition: Good Instructions (If sedation given, give patient instructions): Abdominal Pain (ED) Is patient prescribed a controlled substance at d/c from ED?: No Referrals: Dary La MD [Primary Care Provider] - 1-2 days Ignacio Montgomery MD [STAFF PHYSICIAN] - 1-2 days
[2022-10-14 13:44] LABS: Basophils # (A) 0.1 k/uL (0-0.2); Basophils % (A) 1 %; Eosinophils # (A) 0.3 k/uL (0-0.7); Eosinophils % (A) 3 %; HCT 37.7 % (34.0-46.0); HGB 12.5 gm/dL (11.4-16.0); Lymphocytes # (A) 2.1 k/uL (1.0-4.8); Lymphocytes % (A) 28 %; MCH 29.2 pg (25.0-35.0); MCHC 33.2 g/dL (31.0-37.0); MCV 88.2 fL (80.0-100.0); Mean Platelet Volume 7.3; Monocytes # (A) 0.4 k/uL (0-1.0); Monocytes % (A) 5 %; Neutrophils # (A) 4.5 k/uL (1.3-7.7); Neutrophils % (A) 61 %; Platelet Count 304 k/uL (150-450); RBC 4.28 m/uL (3.80-5.40); RDW 13.6 % (11.5-15.5); WBC 7.4 k/uL (3.8-10.6)
[2022-10-14 14:09] LABS: ALT 23 U/L (4-34); AST 21 U/L (14-36); African American GFR (CKD) >90 (>60 ml/min/1.73 sqM); Albumin 3.7 g/dL (3.5-5.0); Alkaline Phosphatase 56 U/L (38-126); Amylase 44 U/L (30-110); Anion Gap 7 mmol/L; Blood Urea Nitrogen 10 mg/dL (7-17); Carbon Dioxide 23 mmol/L (22-30); Chloride 107 mmol/L (98-107); Glucose 113 mg/dL (74-99); Lipase 84 U/L (23-300); Non-African American GFR(CKD) >90 (>60 ml/min/1.73 sqM); Potassium 4.3 mmol/L (3.5-5.1); Sodium 137 mmol/L (137-145); Total Bilirubin 0.4 mg/dL (0.2-1.3); Total Protein 6.6 g/dL (6.3-8.2)
[2022-10-14 14:26] LABS: HCG,Quantitative Serum <2.4 mIU/mL
[2022-10-14 15:10] VITALS: RESP 18
[2022-10-14 15:30] LABS: Appearance,Urine Cloudy (Clear); Bilirubin,Urine Negative (Negative); Blood,Urine Large (Negative); Calcium Oxalate Crystals,Urine Occasional /hpf; Color,Urine Yellow; Glucose,Urine (UA) Negative (Negative); Hyaline Casts,Urine 3 /lpf (0-2); Ketones,Urine Negative (Negative); Leukocyte Esterase,Urine Negative (Negative); Mucus,Urine Many /hpf; Nitrite,Urine Negative (Negative); PH, Urine 5.5 (5.0-8.0); Protein,Urine Trace (Negative); RBC,Urine 20 /hpf (0-5); Squamous Epithelial Cell,Urine 6 /hpf (0-4); Urobilinogen,Urine <2.0 mg/dL (<2.0); WBC,Urine 3 /hpf (0-5)
[2022-10-14 16:16] VITALS: BP 111/72; PULSE 78
== END 2022-10-14 16:16 | disposition home or self-care (01) ==
LOC: EC 11:58
DX: R10.32 Left lower quadrant pain (principal); F17.290 Nicotine dependence, other tobacco product, uncomplicated; F41.9 Anxiety disorder, unspecified; F32.A Depression, unspecified; F15.90 Other stimulant use, unspecified, uncomplicated; Z88.1 Allergy status to other antibiotic agents; Z90.89 Acquired absence of other organs; Z79.891 Long term (current) use of opiate analgesic; Z79.899 Other long term (current) drug therapy
CPT/HCPCS: 36415; 80053; 82150; 83690; 85025; 81001; 84702; 99284; 96374; 96361; J1885

== ENCOUNTER 2022-10-28 12:29 | Emergency (ER) | payer OTHER ==
[2022-10-28] MEDS ORDERED: DEXAMETHASONE SOD PHOSPHATE 10 MG/ML 1 ML VIAL IVP STA (13:28)
[2022-10-28] MEDS ORDERED: METOCLOPRAMIDE 5 MG/ML 2 ML VIAL IVP STA (13:28)
[2022-10-28] MEDS ORDERED: KETOROLAC 15 MG/ML 1 ML VIAL IVP STA (13:28)
[2022-10-28] MEDS ORDERED: diphenhydrAMINE 50 MG/ML 1 ML VIAL IVP STA (13:28)
[2022-10-28] MEDS ORDERED: SODIUM CHLORIDE 0.9% 1,000 ML IV STA (13:28)
--- NOTE | 2022-10-28 13:56 | XR ---
EXAMINATION TYPE: XR chest 2V DATE OF EXAM: 10/28/2022 COMPARISON: January 15, 2022 HISTORY: Chest pain TECHNIQUE: Frontal and lateral views of the chest are obtained. FINDINGS: There is no focal air space opacity. No evidence for pneumothorax. No pleural effusion. The cardiac silhouette size is within normal limits. The osseous structures are grossly intact. Noted are healed right-sided rib fractures seen previously . IMPRESSION: 1. No acute cardiopulmonary process.
[2022-10-28 14:01] LABS: Basophils % (A) 0 %; Eosinophils # (A) 0.1 k/uL (0-0.7); Eosinophils % (A) 0 %; HCT 37.8 % (34.0-46.0); HGB 12.4 gm/dL (11.4-16.0); Lymphocytes # (A) 1.8 k/uL (1.0-4.8); Lymphocytes % (A) 10 %; MCHC 32.9 g/dL (31.0-37.0); MCV 88.3 fL (80.0-100.0); Mean Platelet Volume 7.3; Monocytes # (A) 0.6 k/uL (0-1.0); Monocytes % (A) 3 %; Neutrophils # (A) 15.3 k/uL (1.3-7.7); Neutrophils % (A) 86 %; Platelet Count 398 k/uL (150-450); RBC 4.29 m/uL (3.80-5.40); RDW 13.8 % (11.5-15.5); WBC 17.8 k/uL (3.8-10.6)
[2022-10-28 14:15] VITALS: RESP 18
--- NOTE | 2022-10-28 14:17 | ED ---
Headache HPI - General Chief Complaint: Headache Stated Complaint: Headache Time Seen by Provider: 10/28/22 13:12 Source: patient, family, RN notes reviewed Mode of arrival: ambulatory Limitations: no limitations - History of Present Illness Initial Comments: This is a 42-year-old female who presents to the emergency department for headaches and concerns of increasing left-sided weakness. Patient states that over the last month, she has had recurrent headaches every time she and her have sexual intercourse. Prior to the last month, this had never been an issue. She feels like the headaches are starting to get worse each time. She has associated nausea and photophobia. Patient does have a history of MS and wonders if it may be related to an MS flare up. Additionally, she reports increasing left-sided weakness. She does have chronic left-sided weakness as a result of the MS, but feels like she has been more shaky than usual over the last couple of days. Also notes a period of chest pain last night that only lasted for a couple of minutes. She did not have any shortness of breath with that. States that this was more of a burning sensation in the center of her chest. Denies any fevers, chills, sore throat, cough, dyspnea, palpitations, abdominal pain, nausea, vomiting, or diarrhea. MD Complaint: headache - Related Data Home Medications Medication Instructions Recorded Confirmed traZODone HCL [Desyrel] 100 mg PO HS 09/06/21 10/28/22 Cholecalciferol [Vitamin D3 (25 50 mcg PO DAILY 07/05/22 10/28/22 Mcg = 1000 Iu)] Citalopram Hydrobromide [CeleXA] 40 mg PO DAILY 07/05/22 10/28/22 Fluticasone Nasal [place] [Flonase 2 spr EA NOSTRIL DAILY PRN 07/05/22 10/28/22 Nasal [place]] Gabapentin [Neurontin] 100 mg PO TID 07/05/22 10/28/22 Ondansetron Odt [Zofran ODT] 4 mg PO Q8HR PRN 07/05/22 10/28/22 hydrOXYzine pamoate [hydrOXYzine 25 mg PO TID 07/05/22 10/28/22 PAMOATE] polyethylene glycoL 3350 [Miralax] 17 gm PO DAILY PRN 07/05/22 10/28/22 Dicyclomine [Bentyl] 20 mg PO TID 08/10/22 10/28/22 busPIRone HCl [Buspar] 10 mg PO BID 08/10/22 10/28/22 Citalopram Hydrobromide [CeleXA] 20 mg PO DAILY 10/14/22 10/28/22 methylPREDNISolone Dose Pack See Taper PO DIRECTED 10/28/22 10/28/22 [Medrol Dose Pack] Previous Rx's Medication Instructions Recorded Cyanocobalamin [Vitamin B-12] 1,000 mcg PO DAILY #60 tab 08/15/22 Famotidine [Pepcid] 20 mg PO BID #60 tab 08/15/22 Folic Acid 1 mg PO DAILY #30 tab 08/15/22 amLODIPine [Norvasc] 5 mg PO DAILY #30 tab 08/15/22 Ketorolac [Toradol] 10 mg PO Q6HR PRN #12 tab 10/28/22 Ondansetron Odt [Zofran Odt] 4 mg PO Q8HR PRN #15 tab 10/28/22 SUMAtriptan succinate 100 mg PO DIRECTED PRN #15 10/28/22 tablet Allergies Allergy/AdvReac Type Severity Reaction Status Date / Time vancomycin Allergy Severe Rash/Hives, Verified 10/28/22 14:25 itching, burning Review of Systems ROS Statement: Those systems with pertinent positive or pertinent negative responses have been documented in the HPI. ROS Other: All systems not noted in ROS Statement are negative. Past Medical History Past Medical History: Blood Disorder, Eye Disorder, Neurologic Disorder, Pulmon stephanie Embolus (PE), Rheumatoid Arthritis (RA), Vascular Disorder Additional Past Medical History / Comment(s): MS, optic neuritis, proficiency C & S disorder, PE/pt cannot recall laterallity, aortic calcification, chin abscess/sepsis, UTI, chronic low back pain/bulging discs, possible ventral hernia, past meth abuse/clean for 19 months. History of Any Multi-Drug Resistant Organisms: MRSA Date of last positivie culture/infection: 04/09/22 MDRO Source:: Buttock Past Surgical History: Appendectomy Additional Past Surgical History / Comment(s): ectopic (2/ L fallopian tube rupture with surgery, R labia abscess/I&D Past Anesthesia/Blood Transfusion Reactions: No Reported Reaction Past Psychological History: Anxiety, Depression Smoking Status: Former smoker, Vaper Past Alcohol Use History: None Reported Past Drug Use History: Methamphetamine - Past Family History Father Family Medical History: No Reported History Mother History Unknown: Yes General Exam Limitations: no limitations General appearance: alert, in no apparent distress Head exam: Present: atraumatic, normocephalic, normal inspection Respiratory exam: Present: normal lung sounds bilaterally. Absent: respiratory distress, wheezes, rales, rhonchi, stridor Cardiovascular Exam: Present: regular rate, normal rhythm, normal heart sounds. Absent: systolic murmur, diastolic murmur, rubs, gallop, clicks GI/Abdominal exam: Present: soft, normal bowel sounds. Absent: distended, tenderness, guarding, rebound, rigid Neurological exam: Present: alert, oriented X3, CN II-XII intact Psychiatric exam: Present: normal affect, normal mood Skin exam: Present: warm, dry, intact, normal color. Absent: rash Course Vital Signs 10/28/22 10/28/22 10/28/22 13:06 14:15 16:25 Temperature 98.7 F 98.3 F Pulse Rate 130 H 104 H 93 Respiratory 20 18 18 Rate Blood Pressure 139/90 137/88 125/84 O2 Sat by Pulse 96 94 L 96 Oximetry Medical Decision Making - Medical Decision Making This is a 42-year-old female who presents to the emergency department for headaches and weakness. Was pt. sent in by a medical professional or institution? @ -No Did you speak to anyone other than the patient for history? @ -Her partner Did you review nursing and triage notes? @ -Yes, and I agree, it is accurate with regards to the patient's symptoms. Were old charts reviewed? @ -No Differential Diagnosis? @ -Differential Headache: Migraine, tension, cluster, carbon monoxide, central venous thrombosis, pension karma temporal arteritis, acute closure glaucoma, intercranial hemorrhage, mastoiditis, sinusitis, head injury, this is not meant to be an all-inclusive list. EKG interpreted by me (3pts min.)? @ -Sinus rhythm. Ventricular rate 96 bpm, FL interval 154 ms, QRS duration 80 ms, QTC 413 ms. X-rays interpreted by me (1pt min.)? @ -Chest x-ray obtained, my interpretation identifies no localized consolidations or infiltrates. CT interpreted by me (1pt min.)? @ -Computed tomography scan of the brain and CT angiogram of the head and neck obtained. My interpretation identifies no evidence of acute intracranial hemorrhage, mass effect, aneurysm, or ischemic changes. What testing was considered but not performed? (CT, X-rays, U/S, labs)? Why? @ -None What meds were considered but not given? Why? @ -None Did you discuss the management of the patient with other professionals? @ -No Did you reconcile home meds? @ -No Was smoking cessation discussed for >3mins.? @ -No Was critical care preformed (if so, how long)? @ -No Were there social determinants of health that impacted care today? How? (Homelessness, low income, unemployed, alcoholism, drug addiction, transportation, low edu. Level, literacy, decrease access to med. care, detention, rehab)? @ -No Was there de-escalation of care discussed even if they declined? (Discuss DNR or withdrawal of care, Hospice)? @ -No What co-morbidities impacted this encounter? (DM, HTN, Smoking, COPD, CAD, Cancer, CVA, Hep., AIDS, mental health diagnosis, sleep apnea, morbid obesity)? @ -MS, RA Was patient admitted / discharged? @ -Discharged. Lab work obtained revealing leukocytosis and no other acute findings. Given the new onset headaches and concerns for increasing left-sided weakness, computed tomography scan of the brain and CT angiogram of the head and neck were obtained. Imaging reveals no acute findings. We did also get a chest x-ray due to her episode of chest pain. This also revealed no acute irregularities. She is given IV fluids and a migraine cocktail consisting of Reglan, Decadron, Toradol, and Benadryl. States that her headache essentially resolved following medication administration. The left-sided shaking resolved as well and she did not feel as weak. It is unclear why she is having postcoital headaches. Discussed that some people do have improvement when taking migraine medication such as a sumatriptan before sexual intercourse. Prescription for sumatriptan provided with dosing instructions reviewed. Advised she follow-up with her primary care provider for reevaluation of symptoms. If this becomes a recurrent issue, she may need to start a preventative headache medication. Also instructed her to follow-up with her neurologist regarding her concerns with the MS. Undiagnosed new problem with uncertain prognosis? @ -None Drug Therapy requiring intensive monitoring for toxicity (Heparin, Nitro, Insulin, Cardizem)? @ -None Were any procedures done? @ -None Diagnosis/symptom? @ -Postcoital headache, chest pain, left sided weakness Acute, or Chronic, or Acute on Chronic? @ -Acute Uncomplicated (without systemic symptoms) or Complicated (systemic symptoms)? @ -Uncomplicated Side effects of treatment? @ -None Exacerbation, Progression, or Severe Exacerbation] @ -Not applicable Poses a threat to life or bodily function? @ -No Return precautions reviewed in depth, the patient is instructed to return to the emergency department with any new, worsening, or concerning symptoms. Patient verbalized understanding. This case was discussed in detail with the attending ED physician, Dr. Gonzalez. Presentation, findings, and treatment plan discussed in detail as well. - Lab Data Result diagrams: 10/28/22 13:55 10/28/22 13:55 Lab Results 10/28/22 10/28/22 10/28/22 Range/Units 13:55 13:55 13:55 WBC 17.8 H (3.8-10.6) k/uL RBC 4.29 (3.80-5.40) m/uL Hgb 12.4 (11.4-16.0) gm/dL Hct 37.8 (34.0-46.0) % MCV 88.3 (80.0-100.0) fL MCH 29.0 (25.0-35.0) pg MCHC 32.9 (31.0-37.0) g/dL RDW 13.8 (11.5-15.5) % Plt Count 398 (150-450) k/uL MPV 7.3 Neutrophils % 86 % Lymphocytes % 10 % Monocytes % 3 % Eosinophils % 0 % Basophils % 0 % Neutrophils # 15.3 H (1.3-7.7) k/uL Lymphocytes # 1.8 (1.0-4.8) k/uL Monocytes # 0.6 (0-1.0) k/uL Eosinophils # 0.1 (0-0.7) k/uL Basophils # 0.0 (0-0.2) k/uL ESR 31 H (0-20) mm/hr Sodium 138 (137-145) mmol/L Potassium 4.4 (3.5-5.1) mmol/L Chloride 103 (98-107) mmol/L Carbon Dioxide 24 (22-30) mmol/L Anion Gap 11 mmol/L BUN 14 (7-17) mg/dL Creatinine 0.70 (0.52-1.04) mg/dL Est GFR (CKD-EPI)AfAm >90 (>60 ml/min/1.73 sqM) Est GFR (CKD-EPI)NonAf >90 (>60 ml/min/1.73 sqM) Glucose 169 H (74-99) mg/dL Calcium 9.7 (8.4-10.2) mg/dL Total Bilirubin 0.5 (0.2-1.3) mg/dL AST 29 (14-36) U/L ALT 46 H (4-34) U/L Alkaline Phosphatase 72 (38-126) U/L Troponin I <0.012 (0.000-0.034) ng/mL C-Reactive Protein <0.5 (<1.0) mg/dL Total Protein 7.4 (6.3-8.2) g/dL Albumin 4.1 (3.5-5.0) g/dL - Radiology Data Radiology results: report reviewed, image reviewed Disposition Clinical Impression: Postictal headache, Chest pain, Left-sided weakness Disposition: HOME SELF-CARE Instructions (If sedation given, give patient instructions): Acute Headache (ED) Additional Instructions: Return to the emergency department with any new, worsening, or concerning symptoms. Try taking the sumatriptan before having sexual intercourse to see if this prevents a headache or lessens the severity. You can repeat the dose in 2 hours if symptoms persist. You can also try taking Toradol for the pain. If you choose to take the Toradol, do not take any [id number] anti- inflammatories such as ibuprofen with this. The Zofran can be taken up to every 8 hours as needed for nausea and vomiting. Follow up with your primary care provider in 1-2 days. Prescriptions: SUMAtriptan succinate 100 mg PO DIRECTED PRN #15 tablet PRN Reason: Migraine Headache Ketorolac [Toradol] 10 mg PO Q6HR PRN #12 tab PRN Reason: Pain Ondansetron Odt [Zofran Odt] 4 mg PO Q8HR PRN #15 tab PRN Reason: Nausea And Vomiting Is patient prescribed a controlled substance at d/c from ED?: No Referrals: Dary La MD [Primary Care Provider] - 1-2 days
[2022-10-28 14:32] LABS: ALT 46 U/L (4-34); AST 29 U/L (14-36); African American GFR (CKD) >90 (>60 ml/min/1.73 sqM); Albumin 4.1 g/dL (3.5-5.0); Alkaline Phosphatase 72 U/L (38-126); Anion Gap 11 mmol/L; Blood Urea Nitrogen 14 mg/dL (7-17); Calcium 9.7 mg/dL (8.4-10.2); Carbon Dioxide 24 mmol/L (22-30); Chloride 103 mmol/L (98-107); Glucose 169 mg/dL (74-99); Non-African American GFR(CKD) >90 (>60 ml/min/1.73 sqM); Potassium 4.4 mmol/L (3.5-5.1); Sodium 138 mmol/L (137-145); Total Bilirubin 0.5 mg/dL (0.2-1.3); Total Protein 7.4 g/dL (6.3-8.2)
[2022-10-28 15:00] LABS: C Reactive Protein <0.5 mg/dL (<1.0)
--- NOTE | 2022-10-28 15:32 | CT ---
EXAMINATION TYPE: CT brain wo con DATE OF EXAM: 10/28/2022 COMPARISON: None HISTORY: headache CT DLP: 1080.[address] of the brain was performed. The ventricles, basal cisterns and sulci overlying the cerebral convexities demonstrate a normal appe arance. There is no evidence for intracranial hemorrhage or sulcal effacement. No mass effects are seen. Osseous calvarium is intact. If symptoms persist consider MRI as clinically warranted. IMPRESSION: 1. No acute intracranial process is seen at this time.
--- NOTE | 2022-10-28 16:07 | CT ---
EXAMINATION TYPE: CT angio head neck DATE OF EXAM: 10/28/2022 COMPARISON: None HISTORY: headache CT DLP: 684.5 mGycm CONTRAST: Performed with IV Contrast, patient injected with 65cc mL of Isovue 370. Combination Contrast CTA cervical carotids and [place] CTA cervical carotids with 3-D recons truction Contrast CTA of the cervical carotids was performed 3-D reconstruction imaging obtained at a separate workstation. Right carotid system: Mild plaque is seen of the right common carotid artery. There is mild plaque a lso noted at the carotid bulb and proximal ICA. No significant diameter reduction. ECA is patent. Right vertebral artery appears unremarkable. Left carotid system: Mild plaque is seen of the left common carotid artery. There is mild plaque als o noted at the carotid bulb and proximal ICA. No significant diameter reduction. ECA is patent. Lef t vertebral artery appears unremarkable. IMPRESSION: 1. No significant diameter reduction to account for the patient's symptoms. CTA lummi of [place] with 3-D reconstruction Contrast CTA of the lummi of [place] was performed 3-D reconstruction imaging obtained at a separate workstation. Vertebrobasilar system as well as intracranial portions of the internal carotid arteries and their ma chaitanya tributaries are patent. I do not see evidence for sizable aneurysm or vascular malformation. Pl ease note MRI provides greater sensitivity and specificity. Visualized brain appears grossly unremar kable. IMPRESSION: 1. No significant abnormality. NASCET criteria was used in interpretation of this exam?
[2022-10-28 16:25] VITALS: BP 125/84; PULSE 93; TEMP 98.3
[2022-10-28 16:39] LABS: Erythrocyte Sedimentation Rate 31 mm/hr (0-20)
== END 2022-10-28 16:53 | disposition home or self-care (01) ==
LOC: EC 12:29
DX: G44.309 Post-traumatic headache, unspecified, not intractable (principal); R53.1 Weakness; R07.9 Chest pain, unspecified; M06.9 Rheumatoid arthritis, unspecified; F41.9 Anxiety disorder, unspecified; F32.A Depression, unspecified; F17.290 Nicotine dependence, other tobacco product, uncomplicated; Z88.1 Allergy status to other antibiotic agents; Z79.899 Other long term (current) drug therapy
CPT/HCPCS: 36415; 93005; 80053; 85652; 84484; 85025; 86140; 71046; 70496; 70450; 70498; 99284; 96374; 96375 ×3; 96361; J1200; J1100; J2765; J1885; Q9967

== ENCOUNTER 2022-11-24 20:33 | Emergency (ER) | payer OTHER ==
[2022-11-24 20:43] VITALS: TEMP 97.7
--- NOTE | 2022-11-24 21:27 | ED ---
General Adult HPI - General Chief complaint: Neuro Symptoms/Deficit Stated complaint: MS Flare up Time Seen by Provider: 11/24/22 21:04 Source: patient, family Mode of arrival: ambulatory Limitations: no limitations - History of Present Illness Initial comments: This patient is a 42-year-old woman who presents with complaint that she believes she is having a flare of MS. She states she has been having 2 weeks of morning headaches. States they're diffuse, aching. She also has been having some problems with what her boyfriend describes as "word salad." Yet they state that she will frequently substitute wrong word when she was speaking. She also feels like her left arm and leg are heavier than usual. No fever or chills. No neck pain or stiffness. Onset/Timin -: week(s) Location: head Quality: dull Consistency: intermittent Improves with: none Worsens with: none Associated Symptoms: other Treatments Prior to Arrival: none - Related Data Home Medications Medication Instructions Recorded Confirmed traZODone HCL [Desyrel] 100 mg PO HS 09/06/21 10/28/22 Cholecalciferol [Vitamin D3 (25 50 mcg PO DAILY 07/05/22 10/28/22 Mcg = 1000 Iu)] Citalopram Hydrobromide [CeleXA] 40 mg PO DAILY 07/05/22 10/28/22 Fluticasone Nasal Hernandez [Flonase 2 spr EA NOSTRIL DAILY PRN 07/05/22 10/28/22 Nasal Hernandez] Gabapentin [Neurontin] 100 mg PO TID 07/05/22 10/28/22 Ondansetron Odt [Zofran ODT] 4 mg PO Q8HR PRN 07/05/22 10/28/22 hydrOXYzine pamoate [hydrOXYzine 25 mg PO TID 07/05/22 10/28/22 PAMOATE] polyethylene glycoL 3350 [Miralax] 17 gm PO DAILY PRN 07/05/22 10/28/22 Dicyclomine [Bentyl] 20 mg PO TID 08/10/22 10/28/22 busPIRone HCl [Buspar] 10 mg PO BID 08/10/22 10/28/22 Citalopram Hydrobromide [CeleXA] 20 mg PO DAILY 10/14/22 10/28/22 methylPREDNISolone Dose Pack See Taper PO DIRECTED 10/28/22 10/28/22 [Medrol Dose Pack] Previous Rx's Medication Instructions Recorded Cyanocobalamin [Vitamin B-12] 1,000 mcg PO DAILY #60 tab 08/15/22 Famotidine [Pepcid] 20 mg PO BID #60 tab 08/15/22 Folic Acid 1 mg PO DAILY #30 tab 08/15/22 amLODIPine [Norvasc] 5 mg PO DAILY #30 tab 08/15/22 Ketorolac [Toradol] 10 mg PO Q6HR PRN #12 tab 10/28/22 Ondansetron Odt [Zofran Odt] 4 mg PO Q8HR PRN #15 tab 10/28/22 SUMAtriptan succinate 100 mg PO DIRECTED PRN #15 10/28/22 tablet predniSONE 60 mg PO DAILY #30 tab 11/24/22 Allergies Allergy/AdvReac Type Severity Reaction Status Date / Time vancomycin Allergy Severe Rash/Hives, Verified 11/24/22 20:43 itching, burning Review of Systems ROS Statement: Those systems with pertinent positive or pertinent negative responses have been documented in the HPI. ROS Other: All systems not noted in ROS Statement are negative. Constitutional: Reports: weakness. Denies: fever, chills Eyes: Denies: eye pain, vision change Respiratory: Denies: cough, dyspnea Cardiovascular: Denies: chest pain, palpitations Gastrointestinal: Denies: abdominal pain, vomiting, diarrhea Genitourinary: Denies: dysuria, hematuria Musculoskeletal: Denies: back pain Neurological: Reports: headache, confusion. Denies: weakness, numbness, paresthesias Past Medical History Past Medical History: Blood Disorder, Eye Disorder, Neurologic Disorder, Pulmonary Embolus (PE), Rheumatoid Arthritis (RA), Vascular Disorder Additional Past Medical History / Comment(s): MS, optic neuritis, proficiency C & S disorder, PE/pt cannot recall laterallity, aortic calcification, chin abscess/sepsis, UTI, chronic low back pain/bulging discs, possible ventral hernia, past meth abuse/clean for 19 months. History of Any Multi-Drug Resistant Organisms: MRSA Date of last positivie culture/infection: 04/09/22 MDRO Source:: Buttock Past Surgical History: Appendectomy Additional Past Surgical History / Comment(s): ectopic (2/ L fallopian tube rupture with surgery, R labia abscess/I&D Past Anesthesia/Blood Transfusion Reactions: No Reported Reaction Past Psychological History: Anxiety, Depression Smoking Status: Former smoker, Vaper Past Alcohol Use History: None Reported Past Drug Use History: Methamphetamine - Past Family History Father Family Medical History: No Reported History Mother History Unknown: Yes General Exam Limitations: no limitations General appearance: alert, in no apparent distress Head exam: Present: atraumatic, normocephalic Eye exam: Present: normal appearance, PERRL, EOMI. Absent: scleral icterus, conjunctival injection ENT exam: Present: normal oropharynx Neck exam: Present: normal inspection, full ROM Respiratory exam: Present: normal lung sounds bilaterally. Absent: respiratory distress, wheezes, rales, rhonchi, stridor Cardiovascular Exam: Present: regular rate, normal rhythm, normal heart sounds. Absent: systolic murmur, diastolic murmur, rubs, gallop GI/Abdominal exam: Present: soft. Absent: distended, tenderness, guarding, rebound, rigid, mass Extremities exam: Present: normal inspection, normal capillary refill. Absent: pedal edema, calf tenderness Back exam: Present: normal inspection. Absent: CVA tenderness (R), CVA t enderness (L) Neurological exam: Present: alert, oriented X3, CN II-XII intact. Absent: motor sensory deficit Skin exam: Present: warm, dry, intact, normal color. Absent: rash Course Vital Signs 11/24/22 11/24/22 20:36 23:56 Temperature 97.7 F Pulse Rate 110 H 90 Respiratory 18 20 Rate Blood Pressure 125/80 117/79 O2 Sat by Pulse 97 100 Oximetry EKG Findings - EKG Results: EKG: interpreted by ERMD, sinus rhythm (Rate 88 bpm), normal axis, normal QRS - Blocks, [place], Hypertrophy, ST Abn: Repolarization changes or abnormalities: nonspecific abnormality, ST segment, and/or T wave Medical Decision Making - Medical Decision Making Patient is a 42-year-old woman who is here with problems with word finding in her speech. They described having worse symptoms at home and she states that she is doing better here. She does believe it is related to her MS. The workup does not reveal other acute cause. The patient is started on steroids, and given that her symptoms do not involve optic neuritis, she seems stable to have continued outpatient course of steroids. We discussed appropriate further care and follow-up and she is going to see her neurologist. Return parameters discussed in detail. The patient had chest x-ray which I interpreted as being negative for acute infiltrate or congestive heart failure The patient had CT of the brain which I interpreted as being negative for acute bony injury or acute intracranial hemorrhage. Was pt. sent in by a medical professional or institution (, [facility] [employer], urgent care, hospital, or long-term...) When possible be specific @ -[No] Did you speak to anyone other than the patient for history (EMS, parent, family, police, friend...)? What history was obtained from this source @ -[No] Did you review nursing and triage notes (agree or disagree)? Why? @ -[I reviewed and agree with nursing and triage notes] Were old charts reviewed (outside hosp., previous admission, EMS record, old EKG, old radiological studies, urgent care reports/EKG's, long-term records)? Report findings @ -[No old charts were reviewed] Differential Diagnosis (chest pain, altered mental status, abdominal pain women, abdominal pain men, vaginal bleeding, weakness, fever, dyspnea, syncope, headache, dizziness, GI bleed, back pain, seizure, CVA, palpatations, mental health, musculoskeletal)? @ -[Differential Altered Mental Status: Hypoglycemia, DKA, hypercapnia, ETOH, overdose, CO poisoning, trauma, myxedema coma, HTN encephalopathy, infection, encephalitis, psychosis, intercranial h emorrhage, hepatic encephalopathy, meningitis, CVA, this is not meant to be an all-inclusive list EKG interpreted by me (3pts min.). @ -[As above] X-rays interpreted by me (1pt min.). @ -[As above CT interpreted by me (1pt min.). @ -[As above U/S interpreted by me (1pt. min.). @ -[None done] What testing was considered but not performed or refused? (CT, X-rays, U/S, labs)? Why? @ -[None] What meds were considered but not given or refused? Why? @ -[None] Did you discuss the management of the patient with other professionals (professionals i.e. , [facility], [employer], lab, RT, psych nurse, social sciences instructor, lighting equipment operator, teacher, commissioned defence force officer, piano case and bench assembler)? Give summary @ -[No] Was smoking cessation discussed for >3mins.? @ -[No] Was critical care preformed (if so, how long)? @ -[No] Were there social determinants of health that impacted care today? How? (Homelessness, low income, unemployed, alcoholism, drug addiction, transportation, low edu. Level, literacy, decrease access to med. care, retirement, rehab)? @ -[No] Was there de-escalation of care discussed even if they declined (Discuss DNR or withdrawal of care, Hospice)? DNR status @ -[No] What co-morbidities impacted this encounter? (DM, HTN, Smoking, COPD, CAD, Cancer, CVA, ARF, Chemo, Hep., AIDS, mental health diagnosis, sleep apnea, morbid obesity)? @ -[Multiple sclerosis Was patient admitted / discharged? Hospital course, mention meds given and route, prescriptions, significant lab abnormalities, going to OR and other pertinent info. @ -[Discharged Undiagnosed new problem with uncertain prognosis? @ -[No] Drug Therapy requiring intensive monitoring for toxicity (Heparin, Nitro, Insulin, Cardizem)? @ -[No] Were any procedures done? @ -[No] Diagnosis/symptom? @ -[Acute exacerbation of multiple sclerosis Mild expressive aphasia Acute, or Chronic, or Acute on Chronic? @ -[Acute Uncomplicated (without systemic symptoms) or Complicated (systemic symptoms)? @ -[Uncomplicated Side effects of treatment? @ -[No] Exacerbation, Progression, or Severe Exacerbation? @ -[Exacerbation Poses a threat to life or bodily function? How? (Chest pain, [place], [place], pneumonia, PE, COPD, DKA, ARF, appy, cholecystitis, CVA, Diverticulitis, Homicidal, Suicidal, threat to staff... and all critical care pts) @ -[No] - Lab Data Result diagrams: 11/24/22 21:36 11/24/22 21:36 Lab Results 11/24/22 11/24/22 11/24/22 Range/Units 21:31 21:31 21:36 WBC 9.9 (3.8-10.6) k/uL RBC 4.29 (3.80-5.40) m/uL Hgb 12.3 (11.4-16.0) gm/dL Hct 39.1 (34.0-46.0) % MCV 91.1 (80.0-100.0) fL MCH 28.7 (25.0-35.0) pg MCHC 31.5 (31.0-37.0) g/dL RDW 13.5 (11.5-15.5) % Plt Count 333 (150-450) k/uL MPV 7.6 Neutrophils % 59 % Lymphocytes % 32 % Monocytes % 4 % Eosinophils % 3 % Basophils % 1 % Neutrophils # 5.9 (1.3-7.7) k/uL Lymphocytes # 3.2 (1.0-4.8) k/uL Monocytes # 0.4 (0-1.0) k/uL Eosinophils # 0.3 (0-0.7) k/uL Basophils # 0.1 (0-0.2) k/uL PT (9.0-12.0) sec INR (<1.2) APTT (22.0-30.0) sec Sodium (137-145) mmol/L Potassium (3.5-5.1) mmol/L Chloride (98-107) mmol/L Carbon Dioxide (22-30) mmol/L Anion Gap mmol/L BUN (7-17) mg/dL Creatinine (0.52-1.04) mg/dL Est GFR (CKD-EPI)AfAm (>60 ml/min/1.73 sqM) Est GFR (CKD-EPI)NonAf (>60 ml/min/1.73 sqM) Glucose (74-99) mg/dL Calcium (8.4-10.2) mg/dL Total Bilirubin (0.2-1.3) mg/dL AST (14-36) U/L ALT (4-34) U/L Alkaline Phosphatase (38-126) U/L Creatine Kinase (30-135) U/L Troponin I (0.000-0.034) ng/mL C-Reactive Protein (<1.0) mg/dL Total Protein (6.3-8.2) g/dL Albumin (3.5-5.0) g/dL Urine Color Light Yellow Urine Appearance Cloudy H (Clear) Urine pH 7.0 (5.0-8.0) Ur Specific [place] 1.015 (1.001-1.035) Urine Protein Negative (Negative) Urine Glucose (UA) Negative (Negative) Urine Ketones Negative (Negative) Urine Blood Negative (Negative) Urine Nitrite Negative (Negative) Urine Bilirubin Negative (Negative) Urine Urobilinogen <2.0 (<2.0) mg/dL Ur Leukocyte Esterase Negative (Negative) Urine RBC <1 (0-5) /hpf Urine WBC 1 (0-5) /hpf Ur Squamous Epith Cells 7 H (0-4) /hpf Urine Mucus Rare H (None) /hpf Urine HCG, Qual Not Detected (Not Detectd) 11/24/22 11/24/22 11/24/22 Range/Units 21:36 21:36 21:36 WBC (3.8-10.6) k/uL RBC (3.80-5.40) m/uL Hgb (11.4-16.0) gm/dL Hct (34.0-46.0) % MCV (80.0-100.0) fL MCH (25.0-35.0) pg MCHC (31.0-37.0) g/dL RDW (11.5-15.5) % Plt Count (150-450) k/uL MPV Neutrophils % % Lymphocytes % % Monocytes % % Eosinophils % % Basophils % % Neutrophils # (1.3-7.7) k/uL Lymphocytes # (1.0-4.8) k/uL Monocytes # (0-1.0) k/uL Eosinophils # (0-0.7) k/uL Basophils # (0-0.2) k/uL PT 9.5 (9.0-12.0) sec INR 0.9 (<1.2) APTT 22.4 (22.0-30.0) sec Sodium 136 L (137-145) mmol/L Potassium 4.5 (3.5-5.1) mmol/L Chloride 101 (98-107) mmol/L Carbon Dioxide 23 (22-30) mmol/L Anion Gap 12 mmol/L BUN 15 (7-17) mg/dL Creatinine 0.75 (0.52-1.04) mg/dL Est GFR (CKD-EPI)AfAm >90 (>60 ml/min/1.73 sqM) Est GFR (CKD-EPI)NonAf >90 (>60 ml/min/1.73 sqM) Glucose 128 H (74-99) mg/dL Calcium 9.1 (8.4-10.2) mg/dL Total Bilirubin 0.3 (0.2-1.3) mg/dL AST 45 H (14-36) U/L ALT 51 H (4-34) U/L Alkaline Phosphatase 69 (38-126) U/L Creatine Kinase 46 (30-135) U/L Troponin I <0.012 (0.000-0.034) ng/mL C-Reactive Protein 0.9 (<1.0) mg/dL Total Protein 6.8 (6.3-8.2) g/dL Albumin 3.9 (3.5-5.0) g/dL Urine Color Urine Appearance (Clear) Urine pH (5.0-8.0) Ur Specific [place] (1.001-1.035) Urine Protein (Negative) Urine Glucose (UA) (Negative) Urine Ketones (Negative) Urine Blood (Negative) Urine Nitrite (Negative) Urine Bilirubin (Negative) Urine Urobilinogen (<2.0) mg/dL Ur Leukocyte Esterase (Negative) Urine RBC (0-5) /hpf Urine WBC (0-5) /hpf Ur Squamous Epith Cells (0-4) /hpf Urine Mucus (None) /hpf Urine HCG, Qual (Not Detectd) Disposition Clinical Impression: Multiple sclerosis, Aphasia Disposition: HOME SELF-CARE Condition: Fair Instructions (If sedation given, give patient instructions): Mitral Stenosis (ED), Expressive Aphasia Exercises (DC) Prescriptions: predniSONE 60 mg PO DAILY #30 tab Is patient prescribed a controlled substance at d/c from ED?: No Referrals: Dary La MD [Primary Care Provider] - 1-2 days Joshua Velásquez MD [STAFF PHYSICIAN] - 1-2 days
[2022-11-24 21:48] LABS: Basophils # (A) 0.1 k/uL (0-0.2); Basophils % (A) 1 %; Eosinophils # (A) 0.3 k/uL (0-0.7); Eosinophils % (A) 3 %; HCT 39.1 % (34.0-46.0); HGB 12.3 gm/dL (11.4-16.0); Lymphocytes # (A) 3.2 k/uL (1.0-4.8); Lymphocytes % (A) 32 %; MCH 28.7 pg (25.0-35.0); MCHC 31.5 g/dL (31.0-37.0); MCV 91.1 fL (80.0-100.0); Mean Platelet Volume 7.6; Monocytes # (A) 0.4 k/uL (0-1.0); Monocytes % (A) 4 %; Neutrophils # (A) 5.9 k/uL (1.3-7.7); Neutrophils % (A) 59 %; Platelet Count 333 k/uL (150-450); RBC 4.29 m/uL (3.80-5.40); RDW 13.5 % (11.5-15.5); WBC 9.9 k/uL (3.8-10.6)
[2022-11-24 21:50] LABS: Appearance,Urine Cloudy (Clear); Bilirubin,Urine Negative (Negative); Blood,Urine Negative (Negative); Color,Urine Light Yellow; Glucose,Urine (UA) Negative (Negative); Ketones,Urine Negative (Negative); Leukocyte Esterase,Urine Negative (Negative); Mucus,Urine Rare /hpf; Nitrite,Urine Negative (Negative); Protein,Urine Negative (Negative); RBC,Urine <1 /hpf (0-5); Specific Gravity,Urine 1.015 (1.001-1.035); Squamous Epithelial Cell,Urine 7 /hpf (0-4); Urobilinogen,Urine <2.0 mg/dL (<2.0); WBC,Urine 1 /hpf (0-5)
--- NOTE | 2022-11-24 21:51 | CT ---
EXAMINATION TYPE: CT brain wo con DATE OF EXAM: 11/24/2022 COMPARISON: 10/28/2022 HISTORY: 42-year-old female Confusion, left side weakness. Hx of left side deficits from MS. TECHNIQUE: Examination was done in axial plane without intravenous contrast. Coronal and sagittal r econstructions performed. CT DLP: 1118.4 mGycm Automated exposure control for dose reduction was used. FINDINGS: Patchy periventricular white matter hypodensities including mild right frontal subcortical hypodensit y remains unchanged from 10/28/2022. There is no evidence of acute intracranial hemorrhage, acute ischemic changes, mass, mass-effect, or extra-axial fluid collection. There is no effacement of cerebral sulci or basal subarachnoid cister ns. There is no hydrocephalus. There is no midline shift. Luna-white matter distinction is preserv ed. Rightward nasal septal deviation. Paranasal sinuses and mastoid air cells are well pneumatized. The g lobes are intact. IMPRESSION: No acute intracranial abnormality seen. Similar mild to moderate burden of patchy white matter hypode nsity in both cerebral hemispheres indicating with the patient's MS.
--- NOTE | 2022-11-24 21:52 | XR ---
EXAMINATION TYPE: XR chest 2V DATE OF EXAM: 11/24/2022 COMPARISON: 10/28/2022 HISTORY: 42-year-old female confusion, altered mental status TECHNIQUE: PA and lateral views FINDINGS: The cardiomediastinal silhouette, aorta, and pulmonary vasculature are within normal limits. Lungs an d pleural spaces are clear. Old right-sided rib fracture deformities. IMPRESSION: No acute cardiopulmonary process.
[2022-11-24 21:58] LABS: INR 0.9 (<1.2); Partial Thromboplastin Time 22.4 sec (22.0-30.0); Prothrombin Time 9.5 sec (9.0-12.0)
[2022-11-24 22:19] LABS: ALT 51 U/L (4-34); AST 45 U/L (14-36); African American GFR (CKD) >90 (>60 ml/min/1.73 sqM); Albumin 3.9 g/dL (3.5-5.0); Alkaline Phosphatase 69 U/L (38-126); Anion Gap 12 mmol/L; Blood Urea Nitrogen 15 mg/dL (7-17); C Reactive Protein 0.9 mg/dL (<1.0); Calcium 9.1 mg/dL (8.4-10.2); Carbon Dioxide 23 mmol/L (22-30); Chloride 101 mmol/L (98-107); Creatine Kinase 46 U/L (30-135); Glucose 128 mg/dL (74-99); Non-African American GFR(CKD) >90 (>60 ml/min/1.73 sqM); Potassium 4.5 mmol/L (3.5-5.1); Sodium 136 mmol/L (137-145); Total Bilirubin 0.3 mg/dL (0.2-1.3); Total Protein 6.8 g/dL (6.3-8.2)
[2022-11-24] MEDS ORDERED: methylPREDNISolone SOD SUCCI 125 MG/2 ML VIAL IV STA (23:00)
[2022-11-24 23:58] VITALS: BP 117/79; PULSE 90; RESP 20
== END 2022-11-24 23:58 | disposition home or self-care (01) ==
LOC: EC 20:33
DX: G35 Multiple sclerosis (principal); R47.01 Aphasia; F41.9 Anxiety disorder, unspecified; F32.A Depression, unspecified; M06.9 Rheumatoid arthritis, unspecified; F17.290 Nicotine dependence, other tobacco product, uncomplicated; F15.90 Other stimulant use, unspecified, uncomplicated; Z79.899 Other long term (current) drug therapy; Z88.1 Allergy status to other antibiotic agents; Z86.711 Personal history of pulmonary embolism; Z90.49 Acquired absence of other specified parts of digestive tract
CPT/HCPCS: 36415; 93005; 80053; 82550; 84484; 85025; 85610; 85730; 86140; 81001; 81025; 71046; 70450; 99285; 96374; J2930

== ENCOUNTER 2022-12-20 09:55 | Inpatient (IN) | payer MEDICAID, OTHER ==
[2022-12-20] MEDS ORDERED: SODIUM CHLORIDE 0.9% 1,000 ML IV STA (10:08)
--- NOTE | 2022-12-20 10:23 | ED ---
General Adult HPI - General Chief complaint: Psychiatric Symptoms Stated complaint: mental health Time Seen by Provider: 12/20/22 09:59 Source: patient, RN notes reviewed, old records reviewed Mode of arrival: ambulatory Limitations: no limitations - History of Present Illness Initial comments: 42-year-old female presents for evaluation of suicidal ideation and suicide attempt. Patient states that approximately midnight last night she took 10 300 mg gabapentin. She states this was in an attempt to kill herself. She's had increased anxiety and depression. She complains of nausea. - Related Data Home Medications Medication Instructions Recorded Confirmed traZODone HCL [Desyrel] 100 mg PO HS 09/06/21 10/28/22 Cholecalciferol [Vitamin D3 (25 50 mcg PO DAILY 07/05/22 10/28/22 Mcg = 1000 Iu)] Citalopram Hydrobromide [CeleXA] 40 mg PO DAILY 07/05/22 10/28/22 Fluticasone Nasal [place] [Flonase 2 spr EA NOSTRIL DAILY PRN 07/05/22 10/28/22 Nasal [place]] Gabapentin [Neurontin] 100 mg PO TID 07/05/22 10/28/22 Ondansetron Odt [Zofran ODT] 4 mg PO Q8HR PRN 07/05/22 10/28/22 hydrOXYzine pamoate [hydrOXYzine 25 mg PO TID 07/05/22 10/28/22 PAMOATE] polyethylene glycoL 3350 [Miralax] 17 gm PO DAILY PRN 07/05/22 10/28/22 Dicyclomine [Bentyl] 20 mg PO TID 08/10/22 10/28/22 busPIRone HCl [Buspar] 10 mg PO BID 08/10/22 10/28/22 Citalopram Hydrobromide [CeleXA] 20 mg PO DAILY 10/14/22 10/28/22 methylPREDNISolone Dose Pack See Taper PO DIRECTED 10/28/22 10/28/22 [Medrol Dose Pack] Previous Rx's Medication Instructions Recorded Cyanocobalamin [Vitamin B-12] 1,000 mcg PO DAILY #60 tab 08/15/22 Famotidine [Pepcid] 20 mg PO BID #60 tab 08/15/22 Folic Acid 1 mg PO DAILY #30 tab 08/15/22 amLODIPine [Norvasc] 5 mg PO DAILY #30 tab 08/15/22 Ketorolac [Toradol] 10 mg PO Q6HR PRN #12 tab 10/28/22 Ondansetron Odt [Zofran Odt] 4 mg PO Q8HR PRN #15 tab 10/28/22 SUMAtriptan succinate 100 mg PO DIRECTED PRN #15 10/28/22 tablet predniSONE 60 mg PO DAILY #30 tab 11/24/22 Allergies Allergy/AdvReac Type Severity Reaction Status Date / Time vancomycin Allergy Severe Rash/Hives, Verified 12/20/22 09:59 itching, burning Review of Systems ROS Statement: Those systems with pertinent positive or pertinent negative responses have been documented in the HPI. ROS Other: All systems not noted in ROS Statement are negative. Past Medical History Past Medical History: Blood Disorder, Eye Disorder, Neurologic Disorder, Pulmonary Embolus (PE), Rheumatoid Arthritis (RA), Vascular Disorder Additional Past Medical History / Comment(s): MS, optic neuritis, proficiency C & S disorder, PE/pt cannot recall laterallity, aortic calcification, chin abscess/sepsis, UTI, chronic low back pain/bulging discs, possible ventral hernia, past meth abuse/clean for 19 months. History of Any Multi-Drug Resistant Organisms: MRSA Date of last positivie culture/infection: 04/09/22 MDRO Source:: Buttock Past Surgical History: Appendectomy Additional Past Surgical History / Comment(s): ectopic (2/ L fallopian tube rupture with surgery, R labia abscess/I&D Past Anesthesia/Blood Transfusion Reactions: No Reported Reaction Past Psychological History: Anxiety, Depression Smoking Status: Former smoker, Vaper Past Alcohol Use History: None Reported Past Drug Use History: Marijuana, Methamphetamine - Past Family History Father Family Medical History: No Reported History Mother History Unknown: Yes General Exam Limitations: no limitations General appearance: alert, anxious Head exam: Present: atraumatic, normocephalic Eye exam: Present: normal appearance, PERRL ENT exam: Present: normal exam Neck exam: Present: normal inspection. Absent: tenderness, meningismus Respiratory exam: Present: normal lung sounds bilaterally. Absent: respiratory distress, wheezes Cardiovascular Exam: Present: normal rhythm, tachycardia GI/Abdominal exam: Present: soft. Absent: distended, tenderness, guarding Extremities exam: Present: normal inspection, normal capillary refill Neurological exam: Present: alert, oriented X3, CN II-XII intact. Absent: motor sensory deficit Psychiatric exam: Present: depressed, anxious, suicidal ideation Skin exam: Present: warm, dry, intact Course Vital Signs 12/20/22 12/20/22 09:56 12:32 Temperature 97.5 F L Pulse Rate 132 H 94 Respiratory 24 18 Rate Blood Pressure 138/94 118/76 O2 Sat by Pulse 99 97 Oximetry Medical Decision Making - Medical Decision Making Was pt. sent in by a medical professional or institution (, PA, GARAGE DOOR INSTALLER, urgent care, hospital, or half-way...) When possible be specific @ -No Did you speak to anyone other than the patient for history (EMS, parent, family, police, friend...)? What history was obtained from this source @ -No Did you review nursing and triage notes (agree or disagree)? Why? @ -I reviewed and agree with nursing and triage notes Were old charts reviewed (outside hosp., previous admission, EMS record, old EKG, old radiological studies, urgent care reports/EKG's, half-way records)? Report findings @ -No old charts were reviewed Differential Diagnosis (chest pain, altered mental status, abdominal pain women, abdominal pain men, vaginal bleeding, weakness, fever, dyspnea, syncope, headache, dizziness, GI bleed, back pain, seizure, CVA, palpatations, mental health, musculoskeletal)? @ -[Differential Mental Health Depression, anxiety, bipolar, psychosis, schizophrenia, borderline personality, situational depression, adjustment disorder, behavioral disorder, brain tumor, malingering, substance abuse, encephalopathy, medication reaction, dementia, hypothyroidism, degenerative neurologic disorder, lupus.... This is not meant to be all-inclusive list EKG interpreted by me (3pts min.). @ -[EKG: Sinus tachycardia, left atrial enlargement, rate 113, MS interval 132, QRS duration 84, QTC 391 X-rays interpreted by me (1pt min.). @ -None done CT interpreted by me (1pt min.). @ -None done U/S interpreted by me (1pt. min.). @ -None done What testing was considered but not performed or refused? (CT, X-rays, U/S, labs)? Why? @ -None What meds were considered but not given or refused? Why? @ -None Did you discuss the management of the patient with other professionals (professionals i.e. , PA, GARAGE DOOR INSTALLER, lab, RT, psych nurse, social media marketer, charcoal unloader, teacher, ship's officer, case planner)? Give summary @ EPS nurse Was smoking cessation discussed for >3mins.? @ -No Was critical care preformed (if so, how long)? @ -No Were there social determinants of health that impacted care today? How? (Homelessness, low income, unemployed, alcoholism, drug addiction, transportation, low edu. Level, literacy, decrease access to med. care, skilled nursing, rehab)? @ -No Was there de-escalation of care discussed even if they declined (Discuss DNR or withdrawal of care, Hospice)? DNR status @ -No What co-morbidities impacted this encounter? (DM, HTN, Smoking, COPD, CAD, Cancer, CVA, ARF, Chemo, Hep., AIDS, mental health diagnosis, sleep apnea, morbid obesity)? @ -None Was patient admitted / discharged? Hospital course, mention meds given and route, prescriptions, significant lab abnormalities, going to OR and other pertinent info. @ -Patient with suicide attempt, overdose. Patient medically cleared, laboratory tests ordered which were unremarkable. Case is discussed with poison control and did follow the recommendations. Ayo ultimately evaluated by EPS and felt to require inpatient psychiatric evaluation and treatment. She will be admitted to this institution. Undiagnosed new problem with uncertain prognosis? @ -No Drug Therapy requiring intensive monitoring for toxicity (Heparin, Nitro, Insulin, Cardizem)? @ -No Were any procedures done? @ -No Diagnosis/symptom? @ -Overdose, suicide attempt, depression Acute, or Chronic, or Acute on Chronic? @ Acute Uncomplicated (without systemic symptoms) or Complicated (systemic symptoms)? @ -[Complicated Side effects of treatment? @ -No Exacerbation, Progression, or Severe Exacerbation? @ -No Poses a threat to life or bodily function? How? (Chest pain, [place], [place], pneumonia, PE, COPD, DKA, ARF, appy, cholecystitis, CVA, Diverticulitis, Homicidal, Suicidal, threat to staff... and all critical care pts) @ -Yes, Overdose, suicide attempt, self-harm - Lab Data Result diagrams: 12/20/22 10:08 12/20/22 14:07 Lab Results 12/20/22 12/20/22 12/20/22 Range/Units 10:08 10:08 10:08 WBC 11.8 H (3.8-10.6) k/uL RBC 4.54 (3.80-5.40) m/uL Hgb 12.5 (11.4-16.0) gm/dL Hct 40.3 (34.0-46.0) % MCV 88.9 (80.0-100.0) fL MCH 27.5 (25.0-35.0) pg MCHC 30.9 L (31.0-37.0) g/dL RDW 13.3 (11.5-15.5) % Plt Count 388 (150-450) k/uL MPV 7.6 Neutrophils % 61 % Lymphocytes % 27 % Monocytes % 7 % Eosinophils % 2 % Basophils % 1 % Neutrophils # 7.2 (1.3-7.7) k/uL Lymphocytes # 3.2 (1.0-4.8) k/uL Monocytes # 0.8 (0-1.0) k/uL Eosinophils # 0.2 (0-0.7) k/uL Basophils # 0.1 (0-0.2) k/uL PT (9.0-12.0) sec INR (<1.2) Sodium (137-145) mmol/L Potassium (3.5-5.1) mmol/L Chloride (98-107) mmol/L Carbon Dioxide (22-30) mmol/L Anion Gap mmol/L BUN (7-17) mg/dL Creatinine (0.52-1.04) mg/dL Est GFR (CKD-EPI)AfAm (>60 ml/min/1.73 sqM) Est GFR (CKD-EPI)NonAf (>60 ml/min/1.73 sqM) Glucose (74-99) mg/dL Calcium (8.4-10.2) mg/dL Magnesium (1.6-2.3) mg/dL Total Bilirubin (0.2-1.3) mg/dL AST (14-36) U/L ALT (4-34) U/L Alkaline Phosphatase (38-126) U/L Total Protein (6.3-8.2) g/dL Albumin (3.5-5.0) g/dL Urine Color Yellow Urine Appearance Clear (Clear) Urine pH 6.0 (5.0-8.0) Ur Specific [place] 1.037 H (1.001-1.035) Urine Protein 1+ H (Negative) Urine Glucose (UA) Negative (Negative) Urine Ketones Trace H (Negative) Urine Blood Negative (Negative) Urine Nitrite Negative (Negative) Urine Bilirubin Negative (Negative) Urine Urobilinogen 3.0 (<2.0) mg/dL Ur Leukocyte Esterase Negative (Negative) Urine WBC 2 (0-5) /hpf Ur Squamous Epith Cells 4 (0-4) /hpf Urine Mucus Many H (None) /hpf Urine HCG, Qual Not Detected (Not Detectd) Salicylates mg/dL Urine Opiates Screen Not Detected (NotDetected) Ur Oxycodone Screen Not Detected (NotDetected) Urine Methadone Screen Not Detected (NotDetected) Ur Propoxyphene Screen Not Detected (NotDetected) Acetaminophen ug/mL Ur Barbiturates Screen Not Detected (NotDetected) U Tricyclic Antidepress Not Detected (NotDetected) Ur Phencyclidine Scrn Not Detected (NotDetected) Ur Amphetamines Screen Not Detected (NotDetected) U Methamphetamines Scrn Not Detected (NotDetected) U Benzodiazepines Scrn Not Detected (NotDetected) Urine Cocaine Screen Not Detected (NotDetected) U Marijuana (THC) Screen Detected H (NotDetected) Serum Alcohol mg/dL Coronavirus (PCR) (Not Detectd) 12/20/22 12/20/22 12/20/22 Range/Units 10:37 10:37 14:07 WBC (3.8-10.6) k/uL RBC (3.80-5.40) m/uL Hgb (11.4-16.0) gm/dL Hct (34.0-46.0) % MCV (80.0-100.0) fL MCH (25.0-35.0) pg MCHC (31.0-37.0) g/dL RDW (11.5-15.5) % Plt Count (150-450) k/uL MPV Neutrophils % % Lymphocytes % % Monocytes % % Eosinophils % % Basophils % % Neutrophils # (1.3-7.7) k/uL Lymphocytes # (1.0-4.8) k/uL Monocytes # (0-1.0) k/uL Eosinophils # (0-0.7) k/uL Basophils # (0-0.2) k/uL PT 10.3 (9.0-12.0) sec INR 1.0 (<1.2) Sodium 138 137 (137-145) mmol/L Potassium 3.7 3.8 (3.5-5.1) mmol/L Chloride 102 104 (98-107) mmol/L Carbon Dioxide 23 23 (22-30) mmol/L Anion Gap 13 10 mmol/L BUN 15 17 (7-17) mg/dL Creatinine 0.94 0.89 (0.52-1.04) mg/dL Est GFR (CKD-EPI)AfAm 87 >90 (>60 ml/min/1.73 sqM) Est GFR (CKD-EPI)NonAf 76 81 (>60 ml/min/1.73 sqM) Glucose 114 H 106 H (74-99) mg/dL Calcium 9.5 8.7 (8.4-10.2) mg/dL Magnesium 2.0 (1.6-2.3) mg/dL Total Bilirubin 0.5 0.3 (0.2-1.3) mg/dL AST 36 32 (14-36) U/L ALT 49 H 44 H (4-34) U/L Alkaline Phosphatase 79 67 (38-126) U/L Total Protein 7.2 6.4 (6.3-8.2) g/dL Albumin 4.2 3.7 (3.5-5.0) g/dL Urine Color Urine Appearance (Clear) Urine pH (5.0-8.0) Ur Specific [place] (1.001-1.035) Urine Protein (Negative) Urine Glucose (UA) (Negative) Urine Ketones (Negative) Urine Blood (Negative) Urine Nitrite (Negative) Urine Bilirubin (Negative) Urine Urobilinogen (<2.0) mg/dL Ur Leukocyte Esterase (Negative) Urine WBC (0-5) /hpf Ur Squamous Epith Cells (0-4) /hpf Urine Mucus (None) /hpf Urine HCG, Qual (Not Detectd) Salicylates <1.0 mg/dL Urine Opiates Screen (NotDetected) Ur Oxycodone Screen (NotDetected) Urine Methadone Screen (NotDetected) Ur Propoxyphene Screen (NotDetected) Acetaminophen <10.0 ug/mL Ur Barbiturates Screen (NotDetected) U Tricyclic Antidepress (NotDetected) Ur Phencyclidine Scrn (NotDetected) Ur Amphetamines Screen (NotDetected) U Methamphetamines Scrn (NotDetected) U Benzodiazepines Scrn (NotDetected) Urine Cocaine Screen (NotDetected) U Marijuana (THC) Screen (NotDetected) Serum Alcohol <10 mg/dL Coronavirus (PCR) (Not Detectd) 12/20/22 Range/Units 14:47 WBC (3.8-10.6) k/uL RBC (3.80-5.40) m/uL Hgb (11.4-16.0) gm/dL Hct (34.0-46.0) % MCV (80.0-100.0) fL MCH (25.0-35.0) pg MCHC (31.0-37.0) g/dL RDW (11.5-15.5) % Plt Count (150-450) k/uL MPV Neutrophils % % Lymphocytes % % Monocytes % % Eosinophils % % Basophils % % Neutrophils # (1.3-7.7) k/uL Lymphocytes # (1.0-4.8) k/uL Monocytes # (0-1.0) k/uL Eosinophils # (0-0.7) k/uL Basophils # (0-0.2) k/uL PT (9.0-12.0) sec INR (<1.2) Sodium (137-145) mmol/L Potassium (3.5-5.1) mmol/L Chloride (98-107) mmol/L Carbon Dioxide (22-30) mmol/L Anion Gap mmol/L BUN (7-17) mg/dL Creatinine (0.52-1.04) mg/dL Est GFR (CKD-EPI)AfAm (>60 ml/min/1.73 sqM) Est GFR (CKD-EPI)NonAf (>60 ml/min/1.73 sqM) Glucose (74-99) mg/dL Calcium (8.4-10.2) mg/dL Magnesium (1.6-2.3) mg/dL Total Bilirubin (0.2-1.3) mg/dL AST (14-36) U/L ALT (4-34) U/L Alkaline Phosphatase (38-126) U/L Total Protein (6.3-8.2) g/dL Albumin (3.5-5.0) g/dL Urine Color Urine Appearance (Clear) Urine pH (5.0-8.0) Ur Specific [place] (1.001-1.035) Urine Protein (Negative) Urine Glucose (UA) (Negative) Urine Ketones (Negative) Urine Blood (Negative) Urine Nitrite (Negative) Urine Bilirubin (Negative) Urine Urobilinogen (<2.0) mg/dL Ur Leukocyte Esterase (Negative) Urine WBC (0-5) /hpf Ur Squamous Epith Cells (0-4) /hpf Urine Mucus (None) /hpf Urine HCG, Qual (Not Detectd) Salicylates mg/dL Urine Opiates Screen (NotDetected) Ur Oxycodone Screen (NotDetected) Urine Methadone Screen (NotDetected) Ur Propoxyphene Screen (NotDetected) Acetaminophen ug/mL Ur Barbiturates Screen (NotDetected) U Tricyclic Antidepress (NotDetected) Ur Phencyclidine Scrn (NotDetected) Ur Amphetamines Screen (NotDetected) U Methamphetamines Scrn (NotDetected) U Benzodiazepines Scrn (NotDetected) Urine Cocaine Screen (NotDetected) U Marijuana (THC) Screen (NotDetected) Serum Alcohol mg/dL Coronavirus (PCR) Not Detected (Not Detectd) Disposition Clinical Impression: Depression, Attempted suicide Disposition: ADMITTED IP TO THIS HOSP Condition: Stable Is patient prescribed a controlled substance at d/c from ED?: No Referrals: Dary La MD [Primary Care Provider] - 1-2 days Time of Disposition: 15:07
[2022-12-20 10:42] LABS: Basophils # (A) 0.1 k/uL (0-0.2); Basophils % (A) 1 %; Eosinophils # (A) 0.2 k/uL (0-0.7); Eosinophils % (A) 2 %; HCT 40.3 % (34.0-46.0); HGB 12.5 gm/dL (11.4-16.0); Lymphocytes # (A) 3.2 k/uL (1.0-4.8); Lymphocytes % (A) 27 %; MCH 27.5 pg (25.0-35.0); MCHC 30.9 g/dL (31.0-37.0); MCV 88.9 fL (80.0-100.0); Mean Platelet Volume 7.6; Monocytes # (A) 0.8 k/uL (0-1.0); Monocytes % (A) 7 %; Neutrophils # (A) 7.2 k/uL (1.3-7.7); Neutrophils % (A) 61 %; Platelet Count 388 k/uL (150-450); RBC 4.54 m/uL (3.80-5.40); RDW 13.3 % (11.5-15.5); WBC 11.8 k/uL (3.8-10.6)
[2022-12-20 10:48] LABS: Prothrombin Time 10.3 sec (9.0-12.0)
[2022-12-20 10:53] LABS: ALT 49 U/L (4-34); AST 36 U/L (14-36); Acetaminophen <10.0 ug/mL; African American GFR (CKD) 87 (>60 ml/min/1.73 sqM); Albumin 4.2 g/dL (3.5-5.0); Alcohol <10 mg/dL; Alkaline Phosphatase 79 U/L (38-126); Anion Gap 13 mmol/L; Blood Urea Nitrogen 15 mg/dL (7-17); Calcium 9.5 mg/dL (8.4-10.2); Carbon Dioxide 23 mmol/L (22-30); Chloride 102 mmol/L (98-107); Glucose 114 mg/dL (74-99); Non-African American GFR(CKD) 76 (>60 ml/min/1.73 sqM); Potassium 3.7 mmol/L (3.5-5.1); Salicylate <1.0 mg/dL; Sodium 138 mmol/L (137-145); Total Bilirubin 0.5 mg/dL (0.2-1.3); Total Protein 7.2 g/dL (6.3-8.2)
[2022-12-20 10:54] LABS: Appearance,Urine Clear (Clear); Bilirubin,Urine Negative (Negative); Blood,Urine Negative (Negative); Color,Urine Yellow; Glucose,Urine (UA) Negative (Negative); Ketones,Urine Trace (Negative); Leukocyte Esterase,Urine Negative (Negative); Mucus,Urine Many /hpf; Nitrite,Urine Negative (Negative); Protein,Urine 1+ (Negative); Specific Gravity,Urine 1.037 (1.001-1.035); Squamous Epithelial Cell,Urine 4 /hpf (0-4); WBC,Urine 2 /hpf (0-5)
[2022-12-20 11:05] LABS: Amphetamine Screen,Urine Not Detected (NotDetected); Barbiturate Screen,Urine Not Detected (NotDetected); Benzodiazepines Screen,Urine Not Detected (NotDetected); Cocaine Screen,Urine Not Detected (NotDetected); Methadone Screen, Urine Not Detected (NotDetected); Opiate Screen,Urine Not Detected (NotDetected); Oxycodone Screen, Urine Not Detected (NotDetected); Phencyclidine Screen,Urine Not Detected (NotDetected); Tricyclic Antidepressant,Urine Not Detected (NotDetected); Urn Cannabinoid Scrn Detected (NotDetected)
[2022-12-20] MEDS ORDERED: ONDANSETRON 4 MG/2 ML VIAL IVP STA (12:32)
[2022-12-20 14:25] LABS: ALT 44 U/L (4-34); AST 32 U/L (14-36); African American GFR (CKD) >90 (>60 ml/min/1.73 sqM); Albumin 3.7 g/dL (3.5-5.0); Alkaline Phosphatase 67 U/L (38-126); Anion Gap 10 mmol/L; Blood Urea Nitrogen 17 mg/dL (7-17); Calcium 8.7 mg/dL (8.4-10.2); Carbon Dioxide 23 mmol/L (22-30); Chloride 104 mmol/L (98-107); Glucose 106 mg/dL (74-99); Non-African American GFR(CKD) 81 (>60 ml/min/1.73 sqM); Potassium 3.8 mmol/L (3.5-5.1); Sodium 137 mmol/L (137-145); Total Bilirubin 0.3 mg/dL (0.2-1.3); Total Protein 6.4 g/dL (6.3-8.2)
[2022-12-20] MEDS ORDERED: MAG HYDROX/AL HYDROX/SIMETH 30 ML CUP PO PRN (16:55)
[2022-12-20] MEDS ORDERED: MAGNESIUM HYDROXIDE 2,400 MG/10 ML CUP PO PRN (16:55)
[2022-12-20] MEDS ORDERED: LORazepam 2 MG/ML INJ IM PRN (16:58)
[2022-12-20] MEDS ORDERED: HALOPERIDOL LACTATE 5 MG/ML 1 ML VIAL IM PRN (16:59)
[2022-12-20] MEDS ORDERED: ONDANSETRON 4 MG TAB PO PRN (16:59)
[2022-12-20] MEDS ORDERED: FLUTICASONE 50MCG/SPRAY NASAL 16GM EA NOSTRIL PRN (16:59)
[2022-12-20] MEDS ORDERED: SUMAtriptan succinate 50 MG TAB PO PRN (16:59)
[2022-12-20] MEDS ORDERED: polyethylene glycoL 3350 17 GM POWD.PACK PO PRN (16:59)
[2022-12-20] MEDS ORDERED: haloperidoL 5 MG TAB PO PRN (16:59)
[2022-12-20] MEDS ORDERED: ONDANSETRON ODT 4 MG TAB PO PRN (16:59)
[2022-12-20] MEDS: GABAPENTIN 100 MG CAP PO SCH (21:08)
[2022-12-20] MEDS: traZODone HCL 100 MG TAB PO SCH (21:08)
[2022-12-20] MEDS: busPIRone HCl 10 MG TAB PO SCH (21:09)
[2022-12-20] MEDS: ACETAMINOPHEN TAB 325 MG TAB PO PRN (21:09)
[2022-12-21] MEDS ORDERED: NON FORMULARY DRUG (Citalopram Hydrobromide [Celexa] 40 MG Tablet) PO SCH (09:00)
[2022-12-21] MEDS ORDERED: OCRELIZUMAB IV SCH (09:00)
[2022-12-21] MEDS ORDERED: CITALOPRAM HYDROBROMIDE 20 MG TAB PO SCH (09:00)
[2022-12-21] MEDS: busPIRone HCl 10 MG TAB PO SCH ×3 (09:01→21:03)
[2022-12-21] MEDS: CHOLECALCIFEROL 25 MCG (1000 IU) TABLET PO SCH (09:01)
[2022-12-21] MEDS: NICOTINE 14MG/24HR PATCH TRANSDERM SCH (09:01)
[2022-12-21] MEDS: VERAPAMIL SR 120 MG TABLET.ER PO SCH (09:02)
[2022-12-21] MEDS: GABAPENTIN 100 MG CAP PO SCH ×3 (09:03→21:05)
--- NOTE | 2022-12-21 11:36 | P.HP ---
Psychiatric H&P - . H&P Date: 12/21/22 History & Physical: Allergies Allergy/AdvReac Type Severity Reaction Status Date / Time vancomycin Allergy Severe Rash/Hives, Verified 12/20/22 19:00 itching, burning Vital Signs Temp 97.6 F 12/21/22 06:22 Pulse 103 H 12/21/22 09:05 Resp 16 12/21/22 06:22 BP 119/81 12/21/22 09:05 Pulse Ox 97 12/20/22 12:32 FiO2 Intake & Output 12/20/22 12/21/22 12/21/22 18:59 06:59 18:59 Weight 102.058 kg 102.058 kg 103.6 kg Laboratory Last Values WBC 11.8 k/uL (3.8-10.6) H 12/20/22 10:08 RBC 4.54 m/uL (3.80-5.40) 12/20/22 10:08 Hgb 12.5 gm/dL (11.4-16.0) 12/20/22 10:08 Hct 40.3 % (34.0-46.0) 12/20/22 10:08 MCV 88.9 fL (80.0-100.0) 12/20/22 10:08 MCH 27.5 pg (25.0-35.0) 12/20/22 10:08 MCHC 30.9 g/dL (31.0-37.0) L 12/20/22 10:08 RDW 13.3 % (11.5-15.5) 12/20/22 10:08 Plt Count 388 k/uL (150-450) 12/20/22 10:08 MPV 7.6 12/20/22 10:08 Neutrophils % 61 % 12/20/22 10:08 Lymphocytes % 27 % 12/20/22 10:08 Monocytes % 7 % 12/20/22 10:08 Eosinophils % 2 % 12/20/22 10:08 Basophils % 1 % 12/20/22 10:08 Neutrophils # 7.2 k/uL (1.3-7.7) 12/20/22 10:08 Lymphocytes # 3.2 k/uL (1.0-4.8) 12/20/22 10:08 Monocytes # 0.8 k/uL (0-1.0) 12/20/22 10:08 Eosinophils # 0.2 k/uL (0-0.7) 12/20/22 10:08 Basophils # 0.1 k/uL (0-0.2) 12/20/22 10:08 PT 10.3 sec (9.0-12.0) 12/20/22 10:37 INR 1.0 (<1.2) 12/20/22 10:37 Sodium 137 mmol/L (137-145) 12/20/22 14:07 Potassium 3.8 mmol/L (3.5-5.1) 12/20/22 14:07 Chloride 104 mmol/L (98-107) 12/20/22 14:07 Carbon Dioxide 23 mmol/L (22-30) 12/20/22 14:07 Anion Gap 10 mmol/L 12/20/22 14:07 BUN 17 mg/dL (7-17) 12/20/22 14:07 Creatinine 0.89 mg/dL (0.52-1.04) 12/20/22 14:07 Est GFR (CKD-EPI)AfAm >90 (>60 ml/min/1.73 sqM) 12/20/22 14:07 Est GFR (CKD-EPI)NonAf 81 (>60 ml/min/1.73 sqM) 12/20/22 14:07 Glucose 106 mg/dL (74-99) H 12/20/22 14:07 Calcium 8.7 mg/dL (8.4-10.2) 12/20/22 14:07 Magnesium 2.0 mg/dL (1.6-2.3) 12/20/22 10:37 Total Bilirubin 0.3 mg/dL (0.2-1.3) 12/20/22 14:07 AST 32 U/L (14-36) 12/20/22 14:07 ALT 44 U/L (4-34) H 12/20/22 14:07 Alkaline Phosphatase 67 U/L (38-126) 12/20/22 14:07 Total Protein 6.4 g/dL (6.3-8.2) 12/20/22 14:07 Albumin 3.7 g/dL (3.5-5.0) 12/20/22 14:07 TSH 0.867 mIU/L (0.465-4.680) 12/20/22 10:00 Urine Color Yellow 12/20/22 10:08 Urine Appearance Clear (Clear) 12/20/22 10:08 Urine pH 6.0 (5.0-8.0) 12/20/22 10:08 Ur Specific [place] 1.037 (1.001-1.035) H 12/20/22 10:08 Urine Protein 1+ (Negative) H 12/20/22 10:08 Urine Glucose (UA) Negative (Negative) 12/20/22 10:08 Urine Ketones Trace (Negative) H 12/20/22 10:08 Urine Blood Negative (Negative) 12/20/22 10:08 Urine Nitrite Negative (Negative) 12/20/22 10:08 Urine Bilirubin Negative (Negative) 12/20/22 10:08 Urine Urobilinogen 3.0 mg/dL (<2.0) 12/20/22 10:08 Ur Leukocyte Esterase Negative (Negative) 12/20/22 10:08 Urine WBC 2 /hpf (0-5) 12/20/22 10:08 Ur Squamous Epith Cells 4 /hpf (0-4) 12/20/22 10:08 Urine Mucus Many /hpf (None) H 12/20/22 10:08 Urine HCG, Qual Not Detected (Not Detectd) 12/20/22 10:08 Salicylates <1.0 mg/dL 12/20/22 10:37 Urine Opiates Screen Not Detected (NotDetected) 12/20/22 10:08 Ur Oxycodone Screen Not Detected (NotDetected) 12/20/22 10:08 Urine Methadone Screen Not Detected (NotDetected) 12/20/22 10:08 Ur Propoxyphene Screen Not Detected (NotDetected) 12/20/22 10:08 Acetaminophen <10.0 ug/mL 12/20/22 10:37 Ur Barbiturates Screen Not Detected (NotDetected) 12/20/22 10:08 U Tricyclic Antidepress Not Detected (NotDetected) 12/20/22 10:08 Ur Phencyclidine Scrn Not Detected (NotDetected) 12/20/22 10:08 Ur Amphetamines Screen Not Detected (NotDetected) 12/20/22 10:08 U Methamphetamines Scrn Not Detected (NotDetected) 12/20/22 10:08 U Benzodiazepines Scrn Not Detected (NotDetected) 12/20/22 10:08 Urine Cocaine Screen Not Detected (NotDetected) 12/20/22 10:08 U Marijuana (THC) Screen Detected (NotDetected) H 12/20/22 10:08 Serum Alcohol <10 mg/dL 12/20/22 10:37 Coronavirus (PCR) Not Detected (Not Detectd) 12/20/22 14:47 12/21/22 11:29 Psychiatric evaluation This is a reevaluation on Mónica Nixon who is a 42-year-old female and was hospitalized after patient reports that she had taken about 10 tablets of gabapentin 300 mg each She said that she does not know why sedated and that it was an impulsive act she reports that she currently lives with her boyfriend and that he admits that he is an enabler She says that she does not do anything throughout the day and spends most of her time watching TV or sleep all day She denies any alcohol or substance use at this time but states that she has a history of methamphetamine use for about 3 years and has been sober for 2 years She says that her last hospitalization was on this unit about 15 years ago and n ew the layout of the the room and other group problems She says that that was in relation to a suicide attempt when she was breaking up with her ex- at that time She says that she currently is dealing with a motivation and lack of interest in daily activities and that that having any other interests or hobbies She denies any history of self abusive behavior She says that she has 3 children aged 25 20 and 50 but are not living with her Patient reports that she's been taking antidepressants and mood stabilizers from her PCP was been prescribing and is not seeing any psychiatrist at this time Past history personal social history as described above Mental status examination: MENTAL STATUS EXAM: General Appearance: Patient appears to bestated age is alert, patient was pleasant during the interview Behavior: Patient is seated without any agitated behavior. . Speech: Patient's speech is fluent and nonpressured. Mood/Affect: Patient reports being depressed She admits feeling frustrated for not knowing as to why she acted out impulsively Suicidality/Homicidality: Patient denies having any homicidal ideation intent or plan. At this time Denies any suicidal ideations intent or plan at this time Perceptions: Patient admits to chronic intermittent auditory hallucinations She denies any visual hallucinations Though content/process: There is no evidence of any delusional thought content and thought process is linear and goal-directed. Memory and concentration: AOX3, grossly intact for the purposes of this session. Can spell "WORLD" backwards Judgment and insight: Impaired STRENGTHS/WEAKNESSES: strength is that patient is resilient. INTELLECT: average Diagnostic impression: Major depressive disorder acute Rule out pervasive persistent depressive disorder/dysthymia Rule out bipolar disorder mixed type Rule out personality disorder with borderline traits History of methamphetamine use disorder in remission Plan: -Patient is admitted under voluntary status to MHU for stabilization of psychiatric symptoms and safety. Patient has signed adult voluntary form and medication consent and is placed in patient's chart. -Medications : We'll continue her home medications that include buspirone 10 mg 3 times a day Celexa was being prescribed at 60 mg daily which appears to be too high a dose and would recommend dropping it down to 40 mg daily Gabapentin 100 mg 3 times a day trazodone 100 mg at nighttime Patient also continue on her other medications from her PCP -Ativan and Haldol PRN for agitation/aggression As far as medications will continue her medications that include Wellbutrin XL 300 mg daily Lexapro 20 mg daily Trazodone 200 mg at bedtime Enalapril 5 mg daily Lamictal 100 mg daily Ambien 10 mg daily at bedtime when necessary Further medication changes will depend on patient's presentation and symptomatology and progress -Patient was informed of the risks, benefits and side effects of the medication and patient verbally consented to taking the medications. Patient signed med consent form and was placed in chart. -Internal Medicine consult to perform medical evaluation and physical. -SW on board for discharge planning. Encourage patient to participate in groups to work on coping skills. gila romero MD 12/21/22
[2022-12-21] MEDS: ACETAMINOPHEN TAB 325 MG TAB PO PRN (11:54)
[2022-12-21] MEDS: LORazepam 1 MG TAB PO PRN ×2 (13:49→21:05)
--- NOTE | 2022-12-21 13:53 | P.CONS ---
History of Present Illness - Reason for Consult Consult date: 12/21/22 - History of Present Illness This is a 42 year old male with medical history of pulmonary embolism, rheumatoid arthritis, MS, optic neuritis, hx of polysubstance abuse with methamphetamine and marijuana. Patient is a former smoker. Brought into the for evaluation of suicidal ideation and suicide attempt patient reports taking 10 300 mg gabapentin and has reported an increase in anxiety and depression lately. Patient continues to report suicidal ideations states she has been vaping marijuana lately and felt "happy". States she is not working lives at home with her boyfriend. She has 3 adult children who are grown. Patient states "I just dont want to be here anymore." Initial work up reveals a white count of 11.8, chemistry panel is unremarkable with a ALT mildly elevated at 49 and 44. Urinalysis is showing no active infection. Urine drug tox showing marijuana. Covid is negative. Denying any shortness of breath, no chest pain. No dizziness or lightheadedness. Patient is alert x 3. Main complaint is throbbing headache does take imitrex and verapamil at home which will be resumed. REVIEW OF SYSTEMS: CONSTITUTIONAL: No fever, no malaise, no fatigue. HEENT: No recent visual problems or hearing problems. Denied any sore throat. CARDIOVASCULAR: No chest pain, orthopnea, PND, no palpitations, no syncope. PULMONARY: No shortness of breath, no cough, no hemoptysis. GASTROINTESTINAL: No diarrhea, no nausea, no vomiting, no abdominal pain. NEUROLOGICAL: No headaches, no weakness, no numbness. HEMATOLOGICAL: Denies any bleeding or petechiae. GENITOURINARY: Denies any burning micturition, frequency, or urgency. MUSCULOSKELETAL/RHEUMATOLOGICAL: Denies any joint pain, swelling, or any muscle pain. ENDOCRINE: Denies any polyuria or polydipsia. The rest of the 14-point review of systems is negative. PHYSICAL EXAMINATION: GENERAL: The patient is alert and oriented x3, not in any acute distress. Well developed, well nourished. HEENT: Pupils are round and equally reacting to light. EOMI. No scleral icterus. No conjunctival pallor. Normocephalic, atraumatic. No pharyngeal erythema. No thyromegaly. CARDIOVASCULAR: S1 and S2 present. No murmurs, rubs, or gallops. PULMONARY: Chest is clear to auscultation, no wheezing or crackles. ABDOMEN: Soft, nontender, nondistended, normoactive bowel sounds. No palpable organomegaly. MUSCULOSKELETAL: No joint swelling or deformity. EXTREMITIES: No cyanosis, clubbing, or pedal edema. NEUROLOGICAL: Gross neurological examination did not reveal any focal deficits. SKIN: No rashes. Assessment Suicide attempt Anxiety/depression History of pulmonary embolism currently off anticoagulation History of migraines on imitrex outpatient which will be resumed History of MS Hx of polysubstance abuse with meth/marijuana Former smoker Obesity GI prophylaxis Full Code Recommend to resume appropriate home medications. Patient encouraged to partic ipate in the group therapy and patient verbalizes she would like to participate and learn better coping skills. Labs reviewed and TSH is in normal limits, no anemia noted, blood glucose in normal limits. Patient will be evaluated by psychiatry and further recommendations pending. Can continue with the supportive care including tylenol and imitrex for migriane. Thank you for this consultation. The impression and plan of care has been dictated by Divina Garrison, Nurse Practitioner as directed. Dr. Hung MD I have performed a history and physical examination and medical decision making of this patient, discussed the same with the dictator, and agree with the dictators assessment and plan as written, documented as a scribe. Based on total visit time, I have performed more than 50% of this visit. Past Medical History Past Medical History: Blood Disorder, Eye Disorder, Neurologic Disorder, Pulm onary Embolus (PE), Rheumatoid Arthritis (RA), Vascular Disorder Additional Past Medical History / Comment(s): MS, optic neuritis, proficiency C & S disorder, PE/pt cannot recall laterallity, aortic calcification, chin abscess/sepsis, UTI, chronic low back pain/bulging discs, possible ventral hernia, past meth abuse/clean for 19 months. History of Any Multi-Drug Resistant Organisms: MRSA Year Discovered:: 04/09/22 MDRO Source:: Buttock Past Surgical History: Appendectomy Additional Past Surgical History / Comment(s): ectopic (2/ L fallopian tube rupture with surgery, R labia abscess/I&D Past Anesthesia/Blood Transfusion Reactions: No Reported Reaction Smoking Status: Former smoker - Past Family History Father Family Medical History: No Reported History Mother History Unknown: Yes Medications and Allergies Home Medications Medication Instructions Recorded Confirmed Type traZODone HCL [Desyrel] 100 mg PO HS 09/06/21 12/20/22 History Cholecalciferol [Vitamin D3 (25 50 mcg PO DAILY 07/05/22 12/20/22 History Mcg = 1000 Iu)] Citalopram Hydrobromide [CeleXA] 40 mg PO DAILY 07/05/22 12/20/22 History Fluticasone Nasal [place] [Flonase 2 spr EA NOSTRIL DAILY PRN 07/05/22 12/20/22 History Nasal [place]] Gabapentin [Neurontin] 100 mg PO TID 07/05/22 12/20/22 History Ondansetron Odt [Zofran ODT] 4 mg PO Q8HR PRN 07/05/22 12/20/22 History hydrOXYzine pamoate [hydrOXYzine 25 mg PO TID 07/05/22 12/20/22 History PAMOATE] polyethylene glycoL 3350 [Miralax] 17 gm PO DAILY PRN 07/05/22 12/20/22 History busPIRone HCl [Buspar] 10 mg PO TID 08/10/22 12/20/22 History Citalopram Hydrobromide [CeleXA] 20 mg PO DAILY 10/14/22 12/20/22 History Ocrelizumab [Ocrevus] 1 dose IV Q18D 12/20/22 12/20/22 History Ondansetron [Zofran] 4 mg PO DAILY PRN 12/20/22 12/20/22 History SUMAtriptan succinate 100 mg PO BID PRN 12/20/22 12/20/22 History Verapamil HCl [Verapamil ER] 120 mg PO DAILY 12/20/22 12/20/22 History Allergies Allergy/AdvReac Type Severity Reaction Status Date / Time vancomycin Allergy Severe Rash/Hives, Verified 12/20/22 19:00 itching, burning Physical Exam Vitals: Vital Signs Temp Pulse Pulse Resp BP BP Pulse Ox 12/21/22 06:22 97.6 F 84 16 97/52 12/20/22 18:49 97.3 F L 92 16 134/73 12/20/22 12:32 94 18 118/76 97 12/20/22 09:56 97.5 F L 132 H 24 138/94 99 Intake and Output 12/20/22 12/21/22 12/21/22 22:59 06:59 14:59 Other: Weight 102.058 kg Results CBC & Chem 7: 12/20/22 10:08 12/20/22 14:07 Labs: Abnormal Lab Results - Last 24 Hours (Table) 12/20/22 12/20/22 12/20/22 Range/Units 10:08 10:08 10:37 WBC 11.8 H (3.8-10.6) k/uL MCHC 30.9 L (31.0-37.0) g/dL Glucose 114 H (74-99) mg/dL ALT 49 H (4-34) U/L Ur Specific [place] 1.037 H (1.001-1.035) Urine Protein 1+ H (Negative) Urine Ketones Trace H (Negative) Urine Mucus Many H (None) /hpf U Marijuana (THC) Screen Detected H (NotDetected) 12/20/22 Range/Units 14:07 WBC (3.8-10.6) k/uL MCHC (31.0-37.0) g/dL Glucose 106 H (74-99) mg/dL ALT 44 H (4-34) U/L Ur Specific [place] (1.001-1.035) Urine Protein (Negative) Urine Ketones (Negative) Urine Mucus (None) /hpf U Marijuana (THC) Screen (NotDetected) Assessment and Plan Time with Patient: Less than 30
[2022-12-21 18:28] LABS: Chol/HDL Ratio 7.11 Ratio; LDL Cholesterol,Calculated 203.6 mg/dL
[2022-12-21] MEDS: traZODone HCL 100 MG TAB PO SCH (21:03)
[2022-12-22] MEDS: CHOLECALCIFEROL 25 MCG (1000 IU) TABLET PO SCH (07:54)
[2022-12-22] MEDS: busPIRone HCl 10 MG TAB PO SCH (07:54)
[2022-12-22] MEDS: GABAPENTIN 100 MG CAP PO SCH ×3 (07:54→20:18)
[2022-12-22] MEDS: LORazepam 1 MG TAB PO PRN ×2 (07:54→13:47)
[2022-12-22] MEDS: VERAPAMIL SR 120 MG TABLET.ER PO SCH (07:55)
[2022-12-22] MEDS ORDERED: CITALOPRAM HYDROBROMIDE 20 MG TAB PO SCH (09:00)
[2022-12-22] MEDS: NICOTINE 14MG/24HR PATCH TRANSDERM SCH (11:40)
[2022-12-22] MEDS: LITHIUM CARBONATE 150 MG CAP PO SCH ×2 (12:33→20:18)
[2022-12-22] MEDS: DULoxetine HCL 30 MG CAPSULE.DR PO SCH ×2 (12:33→20:18)
--- NOTE | 2022-12-22 12:58 | P.PN ---
Progress Note - Text Progress Note Date: 12/22/22 Interval History: Patient was seen sitting in on activities group today and was directable and a greeable to speak with scientific technical writer in the office. Patient states that she is still feeling depressed and not herself. She claims that she feels the Celexa has not been helping her and other medications have not been helping as well. We spoke about other medication options and she was agreeable to try Cymbalta at this time. Patient states that she is sleeping fairly a night and wants remain on the same dose of trazodone.. At this time patient denies any suicidal or homical ideations, intent or plan. Patient denies any auditory, visual hallucinations and denies any paranoia or delusions. Patient denies any side effects from the medications and has been compliant with meds. Mental Status Exam: General Appearance: Patient appears to bestated age is alert, patient was pleasant during the interview Behavior: Patient is seated without any agitated behavior. . Speech: Patient's speech is fluent and nonpressured. Mood/Affect: Patient reports being depressed She admits feeling frustrated for not knowing as to why she acted out impulsively Suicidality/Homicidality: Patient denies having any homicidal ideation intent or plan. At this time Denies any suicidal ideations intent or plan at this time Perceptions: Patient admits to chronic intermittent auditory hallucinations She denies any visual hallucinations Though content/process: There is no evidence of any delusional thought content and thought process is linear and goal-directed. 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 Patient has signed adult voluntary form and medication consent and is placed in patient's chart. -Medications : increase buspirone 15 mg 3 times a day, vistaril prn for anxiety, d/c Celexa and replace with cymbalta 30 mg bid for anxiety/mood, Gabapentin 100 mg 3 times a day trazodone 100 mg at nighttime, trazodone 100 mg qhs for sleep, lithium 150 mg bid for mood stabilization/suicidal thoughts. -Ativan and Haldol PRN for agitation/aggression -Patient was informed of the risks, benefits and side effects of the medication and patient verbally consented to taking the medications. -NRT - nicotine patch -SW on board for discharge planning. Encourage patient to participate in groups to work on coping skills. likely discharge in 2-3 days
[2022-12-22] MEDS: busPIRone HCl 5 MG TAB PO SCH ×2 (15:04→20:18)
[2022-12-22] MEDS: hydrOXYzine pamoate 25 MG CAP PO PRN ×2 (15:04→20:19)
[2022-12-22] MEDS: traZODone HCL 100 MG TAB PO SCH (20:19)
[2022-12-23] MEDS: VERAPAMIL SR 120 MG TABLET.ER PO SCH (07:42)
[2022-12-23] MEDS: NICOTINE 14MG/24HR PATCH TRANSDERM SCH (07:42)
[2022-12-23] MEDS: CHOLECALCIFEROL 25 MCG (1000 IU) TABLET PO SCH (07:42)
[2022-12-23] MEDS: LITHIUM CARBONATE 150 MG CAP PO SCH ×2 (07:42→20:12)
[2022-12-23] MEDS: GABAPENTIN 100 MG CAP PO SCH ×3 (07:42→20:12)
[2022-12-23] MEDS: DULoxetine HCL 30 MG CAPSULE.DR PO SCH (07:42)
[2022-12-23] MEDS: busPIRone HCl 5 MG TAB PO SCH (07:42)
[2022-12-23] MEDS: hydrOXYzine pamoate 25 MG CAP PO PRN ×3 (07:44→20:13)
[2022-12-23] MEDS: LORazepam 1 MG TAB PO PRN ×3 (10:27→22:53)
--- NOTE | 2022-12-23 12:47 | P.PN ---
Progress Note - Text Progress Note Date: 12/23/22 Interval History: Patient was seen sitting in her room today and was directable and agreeable to speak with development writer in the office. Patient was seen also taking part in group and speaking with other patients on the unit. Patient states that she is still feeling depressed and not herself however does state that she is getting mild improvement since yesterday. She claims that the medications have been helping mildly thus far. she continues to endorse not feeling safe to go home and "not the same". Patient states that she is sleeping fairly a night and wants remain on the same dose of trazodone. At this time patient denies any suicidal or homical ideations, intent or plan. Patient denies any auditory, visual hallucinations and denies any paranoia or delusions. Patient denies any side effects from the medications and has been compliant with meds. Mental Status Exam: General Appearance: Patient appears to be stated age is alert, patient was pleasant during the interview. cooperative. Behavior: Patient is seated without any agitated behavior. Speech: Patient's speech is fluent and nonpressured. Mood/Affect: Patient reports being depressed, improving mildly Suicidality/Homicidality: Patient denies having any homicidal ideation intent or plan. At this time denies any suicidal ideations intent or plan at this time Perceptions: Patient denies any AH. She denies any visual hallucinations Though content/process: There is no evidence of any delusional thought content and thought process is linear and goal-directed. 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 Patient has signed adult voluntary form and medication consent and is placed in patient's chart. -Medications : increase buspirone 20 mg 3 times a day, vistaril prn for anxiety, increase cymbalta 30 mg daily + 60 mg qhs for anxiety/mood, Gabapentin 100 mg 3 times a day, trazodone 100 mg qhs for sleep, lithium 150 mg bid for mood stabilization/suicidal thoughts. -Ativan and Haldol PRN for agitation/aggression -Patient was informed of the risks, benefits and side effects of the medication and patient verbally consented to taking the medications. -NRT - nicotine patch -SW on board for discharge planning. Encourage patient to participate in groups to work on coping skills. likely discharge in 2-3 days
[2022-12-23] MEDS: busPIRone HCl 10 MG TAB PO SCH ×2 (15:13→20:11)
[2022-12-23] MEDS: traZODone HCL 100 MG TAB PO SCH (20:12)
[2022-12-23] MEDS: DULoxetine HCL 60 MG CAPSULE.DR PO SCH (20:12)
--- NOTE | 2022-12-23 23:15 | CT ---
EXAMINATION TYPE: CT angio chest CT DLP: 553.10 mGycm, Automated exposure control for dose reduction was used. DATE OF EXAM: 12/23/2022 11:00 PM COMPARISON: CT 09/01/2022 CLINICAL INDICATION:Female, 42 years old with history of elevated d dimer; Chest pain r/o PE. TECHNIQUE/CONTRAST: CTA scan of the thorax is performed with IV Contrast, patient injected with 150cc mL of Isovue 370, p ulmonary embolism protocol. MIP images are created and reviewed these are created on a separate work station.. FINDINGS: Pulmonary Artery: There is no evidence for a central filling defect within the pulmonary vasculature to suggest acute pulmonary embolism. Limited evaluation of the segmental and subsegmental branches se condary to bolus timing. The pulmonary artery is of normal size. Lungs/Pleura: No evidence of focal consolidation, pleural effusion or pneumothorax. Airway: Large airways are patent. Heart: Heart is within normal limits for size. Trace pericardial fluid. Vasculature: No evidence of aortic aneurysm. Mediastinum: No gross evidence of adenopathy. Musculoskeletal: No acute osseous abnormalities Soft Tissues: Unremarkable. Lower neck: No significant findings. Upper Abdomen: Diffuse low-attenuation to the liver parenchyma.. IMPRESSION: 1. No evidence of central pulmonary embolism. Limited evaluation of the segmental and subsegmental br anches secondary to bolus timing. 2. Hepatic steatosis.
[2022-12-24] MEDS: NICOTINE 14MG/24HR PATCH TRANSDERM SCH (08:08)
[2022-12-24] MEDS: CHOLECALCIFEROL 25 MCG (1000 IU) TABLET PO SCH (08:09)
[2022-12-24] MEDS: LITHIUM CARBONATE 150 MG CAP PO SCH ×2 (08:09→19:59)
[2022-12-24] MEDS: busPIRone HCl 10 MG TAB PO SCH ×2 (08:09→19:59)
[2022-12-24] MEDS: GABAPENTIN 100 MG CAP PO SCH ×3 (08:09→19:59)
[2022-12-24] MEDS: VERAPAMIL SR 120 MG TABLET.ER PO SCH (08:09)
[2022-12-24] MEDS: hydrOXYzine pamoate 25 MG CAP PO PRN ×2 (08:10→17:36)
[2022-12-24] MEDS ORDERED: DULoxetine HCL 30 MG CAPSULE.DR PO SCH (09:00)
[2022-12-24] MEDS: LORazepam 1 MG TAB PO PRN ×2 (11:59→20:01)
[2022-12-24] MEDS ORDERED: DULoxetine HCL 30 MG CAPSULE.DR PO ONE (12:01)
[2022-12-24] MEDS ORDERED: busPIRone HCl 10 MG TAB PO SCH (12:15)
--- NOTE | 2022-12-24 13:23 | P.PN ---
Progress Note - Text Progress Note Date: 12/24/22 Interval History: Patient was seen wandering the hallways today and was directable and agreeable to speak with adjusto writer operator in the office. Patient was seen also taking part in group earlier today. Patient continues to state that she does not feel well and also continues to endorse significant anxiety. She states that nothing has been helping to control it. Claims that she slept fairly well throughout the night on the trazodone and wants remain on the same dose. she continues to endorse not feeling safe to go home and "not the same". At this time patient denies any suicidal or homical ideations, intent or plan. Patient denies any auditory, visual hallucinations and denies any paranoia or delusions. Patient denies any side effects from the medications and has been compliant with meds. We spoke about other medication options which is okay with taking the Inderal today. Mental Status Exam: General Appearance: Patient appears to be stated age is alert, patient was pleasant during the interview. cooperative. Behavior: Patient is seated without any agitated behavior. Appears to be anxio us. Speech: Patient's speech is fluent and nonpressured. Mood/Affect: Patient reports being depressed and anxious, improving mildly Suicidality/Homicidality: Patient denies having any homicidal ideation intent or plan. At this time denies any suicidal ideations intent or plan at this time Perceptions: Patient denies any AH. She denies any visual hallucinations Though content/process: There is no evidence of any delusional thought content and thought process is linear and goal-directed. 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 Patient has signed adult voluntary form and medication consent and is placed in patient's chart. -Medications : increase buspirone 30 mg 2 times a day, vistaril prn for anxiety, increase cymbalta 60 mg bid for anxiety/mood, Gabapentin 100 mg 3 times a day, trazodone 100 mg qhs for sleep, lithium 150 mg bid for mood stabilization/suicidal thoughts. added propranolol 20 mg bid for anxiety -Ativan and Haldol PRN for agitation/aggression -NRT - nicotine patch -SW on board for discharge planning. Encourage patient to participate in groups to work on coping skills. likely discharge in 2-3 days
[2022-12-24] MEDS: PROPRANOLOL 20 MG TAB PO SCH ×2 (13:47→20:34)
[2022-12-24] MEDS: traZODone HCL 100 MG TAB PO SCH (19:59)
[2022-12-24] MEDS: DULoxetine HCL 60 MG CAPSULE.DR PO SCH (19:59)
[2022-12-25] MEDS: busPIRone HCl 10 MG TAB PO SCH ×2 (08:35→20:09)
[2022-12-25] MEDS: NICOTINE 14MG/24HR PATCH TRANSDERM SCH (08:35)
[2022-12-25] MEDS: CHOLECALCIFEROL 25 MCG (1000 IU) TABLET PO SCH (08:35)
[2022-12-25] MEDS: DULoxetine HCL 60 MG CAPSULE.DR PO SCH ×2 (08:35→20:10)
[2022-12-25] MEDS: GABAPENTIN 100 MG CAP PO SCH ×3 (08:36→20:10)
[2022-12-25] MEDS: PROPRANOLOL 20 MG TAB PO SCH (08:36)
[2022-12-25] MEDS: LITHIUM CARBONATE 150 MG CAP PO SCH (08:36)
[2022-12-25] MEDS: VERAPAMIL SR 120 MG TABLET.ER PO SCH (08:36)
[2022-12-25] MEDS: LORazepam 1 MG TAB PO PRN (08:37)
[2022-12-25] MEDS ORDERED: PROPRANOLOL 10 MG TAB PO STA (10:36)
--- NOTE | 2022-12-25 10:44 | P.PN ---
Progress Note - Text Progress Note Date: 12/25/22 Interval History: Patient was seen wandering the hallways today and was directable and agreeable to speak with bond underwriter in the office. Patient appears to be brighter spirits today. He claims that overall she is doing a bit better compared to yesterday. She states that she is having no significant side effects however does feel a little bit tired during the day. Claims that she is able to sleep fairly with the trazodone at nighttime. She claims that the Inderal did help calm her heart rate and has been helping with her anxiety. She was agreeable to have the dose increased once again today. She did speak about wanting to be more involved with her daughter as she is graduating eighth grade tomorrow. She claims that she is going to groups and trying to participate as best she can. See to the anxiety has significantly been improving. States that her appetite is also fair. At this time patient denies any suicidal or homical ideations, intent or plan. Patient denies any auditory, visual hallucinations and denies any paranoia or delusions. Patient denies any side effects from the medications and has been compliant with meds. Mental Status Exam: General Appearance: Patient appears to be stated age is alert, patient was pleasant during the interview. cooperative. Behavior: Patient is seated without any agitated behavior. Appears to be less anxious, calmer Speech: Patient's speech is fluent and nonpressured. Mood/Affect: Patient reports improving mood and anxiety Suicidality/Homicidality: Patient denies having any homicidal ideation intent or plan. At this time denies any suicidal ideations intent or plan Perceptions: Patient denies any AH. She denies any visual hallucinations Though content/process: There is no evidence of any delusional thought content and thought process is linear and goal-directed. 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 Patient has signed adult voluntary form and medication consent and is placed in patient's chart. -Medications : buspirone 30 mg 2 times a day, vistaril prn for anxiety, cymbalta 60 mg bid for anxiety/mood, Gabapentin 100 mg 3 times a day, trazodone 100 mg qhs for sleep, change to lithobid 450 mg daily for mood stabilization/suicidal thoughts. increase propranolol 30 mg bid for anxiety -Ativan and Haldol PRN for agitation/aggression -NRT - nicotine patch -SW on board for discharge planning. Encourage patient to participate in groups to work on coping skills. likely discharge tomorrow back home if patient continues to improve.
[2022-12-25] MEDS: LITHIUM CARBONATE ER 450 MG TABLET.ER PO SCH (11:28)
[2022-12-25] MEDS: hydrOXYzine pamoate 25 MG CAP PO PRN ×2 (15:35→20:12)
[2022-12-25] MEDS: traZODone HCL 100 MG TAB PO SCH (20:10)
[2022-12-25] MEDS: PROPRANOLOL 10 MG TAB PO SCH (20:12)
[2022-12-26 06:55] VITALS: RESP 18; TEMP 98.1
[2022-12-26] MEDS: NICOTINE 14MG/24HR PATCH TRANSDERM SCH (08:04)
[2022-12-26] MEDS: busPIRone HCl 10 MG TAB PO SCH (08:05)
[2022-12-26] MEDS: GABAPENTIN 100 MG CAP PO SCH (08:05)
[2022-12-26] MEDS: PROPRANOLOL 10 MG TAB PO SCH (08:06)
[2022-12-26] MEDS: VERAPAMIL SR 120 MG TABLET.ER PO SCH (08:06)
[2022-12-26] MEDS: DULoxetine HCL 60 MG CAPSULE.DR PO SCH (08:06)
[2022-12-26] MEDS: CHOLECALCIFEROL 25 MCG (1000 IU) TABLET PO SCH (08:06)
[2022-12-26] MEDS: LITHIUM CARBONATE ER 450 MG TABLET.ER PO SCH (08:06)
[2022-12-26 08:09] VITALS: BP 120/70; PULSE 92
--- NOTE | 2022-12-26 10:32 | P.DS ---
Providers Date of admission: 12/20/22 16:48 Expected date of discharge: 12/26/22 Attending physician: Latrell Vasquez MD Consults: 12/20/22 16:55 Consult Physician Routine Consulting Provider: Humza Lovell Consult Reason/Comments: medical management Do you want consulting provider notified?: Yes Primary care physician: Dary La - Discharge Diagnosis(es) (1) Major depressive disorder without psychotic features Current Visit: Yes Status: Acute Priority: High (2) PTSD (post-traumatic stress disorder) Current Visit: Yes Status: Acute Priority: Medium (3) Methamphetamine abuse in remission Current Visit: Yes Status: Acute Priority: Medium (4) Generalized anxiety disorder with panic attacks Current Visit: Yes Status: Acute Priority: High (5) Nicotine dependence Current Visit: Yes Status: Acute Priority: Low Hospital Course: Admission HPI: Admission note was completed by dr Luke "This is a reevaluation on Mónica Nixon who is a 42-year-old female and was hospitalized after patient reports that she had taken about 10 tablets of gabapentin 300 mg each She said that she does not know why sedated and that it was an impulsive act she reports that she currently lives with her boyfriend and that he admits that he is an enabler She says that she does not do anything throughout the day and spends most of her time watching TV or sleep all day She denies any alcohol or substance use at this time but states that she has a history of methamphetamine use for about 3 years and has been sober for 2 years She says that her last hospitalization was on this unit about 15 years ago and new the layout of the the room and other group problems She says that that was in relation to a suicide attempt when she was breaking up with her ex- at that time She says that she currently is dealing with a motivation and lack of interest in daily activities and that that having any other interests or hobbies She denies any history of self abusive behavior She says that she has 3 children aged 25 20 and 50 but are not living with her Patient reports that she's been taking antidepressants and mood stabilizers from her PCP was been prescribing and is not seeing any psychiatrist at this time" Hospital course: Upon admission to the unit patient was directable and agreeable to commence treatment and signed adult voluntary form . Patient was initially fairly isolated however with time in treatment she got along well with other patients on the unit and followed unit protocol. Patient was compliant with the medications and denied any side effects throughout hospital course. Patient was started on BuSpar and increased her dose of 30 mg twice a day for anxiety, Vistaril 50 mg twice a day when necessary for anxiety, Cymbalta 60 mg twice a day for anxiety/mood, continued on with her home dose of Neurontin 100 mg 3 times a day, trazodone 100 mg daily at bedtime for sleep/mood, Lithobid 450 mg daily for mood stabilization/suicidal thoughts, propranolol 30 mg twice a day for anxiety. Patient spoke of her stressors and engaged in therapy both group and individual. Patient was also seen by medical team for history and physical exam. Throughout the course of the hospitalization patient gradually improved with regards to mood, anxiety, suicidal thoughts, sleep and became more future oriented with improved insight and judgment. On the day of discharge patient denied any suicidal or homicidal ideations intent or plan denied any auditory or visual hallucinations. Patient endorsed wanting to live for her family and her future. The patient denied any access to guns or weapons. Patient denied any paranoia and did not endorse any delusions. Patient does have a significant history of substance abuse and was counseled on abstaining from all substances including alcohol and marijuana. Patient elected to do outpatient substance use treatment program through [facility]. Patient was also counseled on the medications and need for regular compliance and was encouraged to follow-up with their outpatient appointment for mental health and also for primary care. Prior to discharge a family meeting will be arranged by drug abuse social worker to answer any questions and ensure safety upon discharge. Mental status exam: General Appearance: Patient appears to be mildly overweight, stated age is alert, pleasant, and cooperative. Patient is in no acute distress and has improved hygiene and grooming Behavior: Patient is calmly seated without any agitated behavior. Speech: Patient's speech is fluent and nonpressured. Mood/Affect: Patient reports their mood is "good", affect is congruent and euthymic. Suicidality/Homicidality: Patient denies having any suicidal or homicidal idea tion intent or plan. Perceptions: Patient denies any auditory or visual hallucinations. Though content/process: There is no evidence of any delusional thought content and thought process is linear and goal-directed. more future oriented Memory and concentration: AOX3, grossly intact for the purposes of this session. Can spell "WORLD" backwards correctly. Judgment and insight: improved with guarded prognosis Impression: Major depressive disorder, recurrent, severe without psychotic features Generalized anxiety disorder with panic attacks PTSD Methamphetamine abuse, in remission Nicotine dependence Plan: -Continue with discharge today as patient has improved and stabilized psychiatrically and is not currently an imminent threat to herself and/or others. Patient will remain at chronically elevated risk for harm to self and/or others due to her impulsivity. -Continue medications: BuSpar 30 mg twice a day for anxiety, Vistaril 50 mg twice a day when necessary for anxiety, Cymbalta 60 mg twice a day for anxiety/mood, Neurontin 100 mg 3 times a day, trazodone 100 mg daily at bedtime for sleep/mood, Lithobid 450 mg daily for mood stabilization/suicidal thoughts, propranolol 30 mg twice a day for anxiety. Patient will be prescribed 14 days +1 refill of her medications and patient will be given them in blister pack to help prevent overdosing and she also states that her boyfriend is locking up her medications and helping her with them. -Patient was counseled on the need for medication compliance and appropriate follow-up at mental health and also primary care for medical issues. Patient verbalized understanding and agreed. -Social work to arrange for and conduct family meeting to ensure safety upon discharge and answer any questions/concerns. Social work also to arrange for patients follow up appointments with [facility] for psychiatric care along with follow up with primary care provider. -Patient counseled on abstaining from recreational drugs and marijuana and alcohol. Was informed/educated on the adverse effects on their physical and mental health. Patient verbally agreed and understood. -Patient was instructed to return to the hospital or seek immediate medical care if their psychiatric or medical symptoms do worsen or reoccur. Allergies Allergy/AdvReac Type Severity Reaction Status Date / Time vancomycin Allergy Severe Rash/Hives, Verified 12/20/22 19:00 itching, burning Laboratory Results WBC 11.8 k/uL (3.8-10.6) H 12/20/22 10:08 RBC 4.54 m/uL (3.80-5.40) 12/20/22 10:08 Hgb 12.5 gm/dL (11.4-16.0) 12/20/22 10:08 Hct 40.3 % (34.0-46.0) 12/20/22 10:08 MCV 88.9 fL (80.0-100.0) 12/20/22 10:08 MCH 27.5 pg (25.0-35.0) 12/20/22 10:08 MCHC 30.9 g/dL (31.0-37.0) L 12/20/22 10:08 RDW 13.3 % (11.5-15.5) 12/20/22 10:08 Plt Count 388 k/uL (150-450) 12/20/22 10:08 MPV 7.6 12/20/22 10:08 Neutrophils % 61 % 12/20/22 10:08 Lymphocytes % 27 % 12/20/22 10:08 Monocytes % 7 % 12/20/22 10:08 Eosinophils % 2 % 12/20/22 10:08 Basophils % 1 % 12/20/22 10:08 Neutrophils # 7.2 k/uL (1.3-7.7) 12/20/22 10:08 Lymphocytes # 3.2 k/uL (1.0-4.8) 12/20/22 10:08 Monocytes # 0.8 k/uL (0-1.0) 12/20/22 10:08 Eosinophils # 0.2 k/uL (0-0.7) 12/20/22 10:08 Basophils # 0.1 k/uL (0-0.2) 12/20/22 10:08 PT 10.3 sec (9.0-12.0) 12/20/22 10:37 INR 1.0 (<1.2) 12/20/22 10:37 D-Dimer 2.57 mg/L FEU (<0.60) H 12/23/22 20:52 Sodium 137 mmol/L (137-145) 12/20/22 14:07 Potassium 3.8 mmol/L (3.5-5.1) 12/20/22 14:07 Chloride 104 mmol/L (98-107) 12/20/22 14:07 Carbon Dioxide 23 mmol/L (22-30) 12/20/22 14:07 Anion Gap 10 mmol/L 12/20/22 14:07 BUN 17 mg/dL (7-17) 12/20/22 14:07 Creatinine 0.89 mg/dL (0.52-1.04) 12/20/22 14:07 Est GFR (CKD-EPI)AfAm >90 (>60 ml/min/1.73 sqM) 12/20/22 14:07 Est GFR (CKD-EPI)NonAf 81 (>60 ml/min/1.73 sqM) 12/20/22 14:07 Glucose 106 mg/dL (74-99) H 12/20/22 14:[address] Glu mg/dL 126 mg/dL 12/20/22 14:07 Hemoglobin A1c 6.0 % 12/20/22 14:07 Calcium 8.7 mg/dL (8.4-10.2) 12/20/22 14:07 Magnesium 2.0 mg/dL (1.6-2.3) 12/20/22 10:37 Total Bilirubin 0.3 mg/dL (0.2-1.3) 12/20/22 14:07 AST 32 U/L (14-36) 12/20/22 14:07 ALT 44 U/L (4-34) H 12/20/22 14:07 Alkaline Phosphatase 67 U/L (38-126) 12/20/22 14:07 Troponin I <0.012 ng/mL (0.000-0.034) 12/23/22 20:52 Total Protein 6.4 g/dL (6.3-8.2) 12/20/22 14:07 Albumin 3.7 g/dL (3.5-5.0) 12/20/22 14:07 Triglycerides 155.00 mg/dL H 12/20/22 10:00 Cholesterol 273.00 mg/dL H 12/20/22 10:00 LDL Cholesterol, Calc 203.6 mg/dL H 12/20/22 10:00 VLDL Cholesterol, Calc 31.00 mg/dL 12/20/22 10:00 HDL Cholesterol 38.40 mg/dL L 12/20/22 10:00 Cholesterol/HDL Ratio 7.11 Ratio 12/20/22 10:00 TSH 0.867 mIU/L (0.465-4.680) 12/20/22 10:00 Urine Color Yellow 12/20/22 10:08 Urine Appearance Clear (Clear) 12/20/22 10:08 Urine pH 6.0 (5.0-8.0) 12/20/22 10:08 Ur Specific [place] 1.037 (1.001-1.035) H 12/20/22 10:08 Urine Protein 1+ (Negative) H 12/20/22 10:08 Urine Glucose (UA) Negative (Negative) 12/20/22 10:08 Urine Ketones Trace (Negative) H 12/20/22 10:08 Urine Blood Negative (Negative) 12/20/22 10:08 Urine Nitrite Negative (Negative) 12/20/22 10:08 Urine Bilirubin Negative (Negative) 12/20/22 10:08 Urine Urobilinogen 3.0 mg/dL (<2.0) 12/20/22 10:08 Ur Leukocyte Esterase Negative (Negative) 12/20/22 10:08 Urine WBC 2 /hpf (0-5) 12/20/22 10:08 Ur Squamous Epith Cells 4 /hpf (0-4) 12/20/22 10:08 Urine Mucus Many /hpf (None) H 12/20/22 10:08 Urine HCG, Qual Not Detected (Not Detectd) 12/20/22 10:08 Salicylates <1.0 mg/dL 12/20/22 10:37 Urine Opiates Screen Not Detected (NotDetected) 12/20/22 10:08 Ur Oxycodone Screen Not Detected (NotDetected) 12/20/22 10:08 Urine Methadone Screen Not Detected (NotDetected) 12/20/22 10:08 Ur Propoxyphene Screen Not Detected (NotDetected) 12/20/22 10:08 Acetaminophen <10.0 ug/mL 12/20/22 10:37 Ur Barbiturates Screen Not Detected (NotDetected) 12/20/22 10:08 U Tricyclic Antidepress Not Detected (NotDetected) 12/20/22 10:08 Ur Phencyclidine Scrn Not Detected (NotDetected) 12/20/22 10:08 Ur Amphetamines Screen Not Detected (NotDetected) 12/20/22 10:08 U Methamphetamines Scrn Not Detected (NotDetected) 12/20/22 10:08 U Benzodiazepines Scrn Not Detected (NotDetected) 12/20/22 10:08 Urine Cocaine Screen Not Detected (NotDetected) 12/20/22 10:08 U Marijuana (THC) Screen Detected (NotDetected) H 12/20/22 10:08 Serum Alcohol <10 mg/dL 12/20/22 10:37 Coronavirus (PCR) Not Detected (Not Detectd) 12/20/22 14:47 Vital Signs Temp 98.1 F 12/26/22 06:54 Pulse 92 12/26/22 08:08 Resp 18 12/26/22 06:54 BP 120/70 12/26/22 08:08 Pulse Ox 97 12/26/22 06:54 FiO2 Patient Condition at Discharge: Stable Plan - Discharge Summary Discharge Rx Participant: No New Discharge Prescriptions: New Propranolol [Inderal] 30 mg PO BID 14 Days #84 tab busPIRone HCL [Buspar] 30 mg PO BID 14 Days #28 tablet DULoxetine HCL [Cymbalta] 60 mg PO BID 14 Days #28 cap Nicotine 14Mg/24Hr Patch [Habitrol] 1 patch TRANSDERM DAILY 14 Days #14 patch [place] Carbonate ER [Lithobid] 450 mg PO DAILY 14 Days #14 tab Continue Gabapentin [Neurontin] 100 mg PO TID SUMAtriptan succinate 100 mg PO BID PRN PRN Reason: Migraine Headache Ocrelizumab [Ocrevus] 1 dose IV Q18D traZODone HCL [Desyrel] 100 mg PO HS 14 Days #14 tab Cholecalciferol [Vitamin D3 (25 Mcg = 1000 Iu)] 50 mcg PO DAILY Fluticasone Nasal [place] [Flonase Nasal [place]] 2 spr EA NOSTRIL DAILY PRN PRN Reason: Allergy Symptoms Verapamil HCl [Verapamil ER] 120 mg PO DAILY Changed hydrOXYzine pamoate [hydrOXYzine PAMOATE] 50 mg PO BID PRN 14 Days #56 cap PRN Reason: Anxiety Discontinued Citalopram Hydrobromide [CeleXA] 20 mg PO DAILY polyethylene glycoL 3350 [Miralax] 17 gm PO DAILY PRN PRN Reason: Constipation Ondansetron Odt [Zofran ODT] 4 mg PO Q8HR PRN PRN Reason: Nausea Citalopram Hydrobromide [CeleXA] 40 mg PO DAILY busPIRone HCl [Buspar] 10 mg PO TID Ondansetron [Zofran] 4 mg PO DAILY PRN PRN Reason: Nausea Discharge Medication List Cholecalciferol [Vitamin D3 (25 Mcg = 1000 Iu)] 50 mcg PO DAILY 07/05/22 [History] Fluticasone Nasal [place] [Flonase Nasal [place]] 2 spr EA NOSTRIL DAILY PRN 07/05/22 [History] Gabapentin [Neurontin] 100 mg PO TID 07/05/22 [History] Ocrelizumab [Ocrevus] 1 dose IV Q18D 12/20/22 [History] SUMAtriptan succinate 100 mg PO BID PRN 12/20/22 [History] Verapamil HCl [Verapamil ER] 120 mg PO DAILY 12/20/22 [History] DULoxetine HCL [Cymbalta] 60 mg PO BID 14 Days #28 cap 12/26/22 [Rx] [place] Carbonate ER [Lithobid] 450 mg PO DAILY 14 Days #14 tab 12/26/22 [Rx] Nicotine 14Mg/24Hr Patch [Habitrol] 1 patch TRANSDERM DAILY 14 Days #14 patch 12/26/22 [Rx] Propranolol [Inderal] 30 mg PO BID 14 Days #84 tab 12/26/22 [Rx] busPIRone HCL [Buspar] 30 mg PO BID 14 Days #28 tablet 12/26/22 [Rx] hydrOXYzine pamoate [hydrOXYzine PAMOATE] 50 mg PO BID PRN 14 Days #56 cap 12/26/22 [Rx] traZODone HCL [Desyrel] 100 mg PO HS 14 Days #14 tab 12/26/22 [Rx] Follow up Appointment(s)/Referral(s): [facility] [Outside] - 12/29/22 2:00 pm (12/29/2022 2:00PM - 3:00PM with KOFI WARREN 12/31/2022 1:00PM - 1:30PM with RACHELLE PORTILLO) Dary La MD [Primary Care Provider] - 1-2 days Patient Instructions/Handouts: Depression (DC), Suicide Prevention (DC) Activity/Diet/Wound Care/Special Instructions: Avoid the use of street drugs and alcohol. Take all medications as prescribed. When you are in need of refills on your medications, please contact your medical provider and/or outpatient psychiatrist to have this done. Please go to scheduled outpatient appointments for aftercare treatment. If symptoms return or become worse, call the crisis line at and/or go to the nearest emergency room for evaluation. Discharge Disposition: HOME SELF-CARE
[2022-12-26] MEDS: hydrOXYzine pamoate 25 MG CAP PO PRN (12:45)
== END 2022-12-26 13:24 | disposition home or self-care (01) | DRG 751 ==
LOC: EC 09:55 → 3MHU 16:48
PROVIDERS: ADMIT Psychiatry & Neurology Psychiatry; ATTEND Psychiatry & Neurology Psychiatry
DX: F33.2 Major depressive disorder, recurrent severe without psychotic features (principal); T42.6X2A Poisoning by other antiepileptic and sedative-hypnotic drugs, intentional self-harm, initial encounter; M06.9 Rheumatoid arthritis, unspecified; G35 Multiple sclerosis; I51.7 Cardiomegaly; F43.10 Post-traumatic stress disorder, unspecified; F41.1 Generalized anxiety disorder; F41.0 Panic disorder [episodic paroxysmal anxiety]; F17.290 Nicotine dependence, other tobacco product, uncomplicated; R74.01 Elevation of levels of liver transaminase levels; G43.909 Migraine, unspecified, not intractable, without status migrainosus; F15.11 Other stimulant abuse, in remission; F10.11 Alcohol abuse, in remission; E66.9 Obesity, unspecified; Z20.822 Contact with and (suspected) exposure to COVID-19; Z68.41 Body mass index [BMI] 40.0-44.9, adult; Z88.1 Allergy status to other antibiotic agents; Z86.711 Personal history of pulmonary embolism; Z79.899 Other long term (current) drug therapy; Z56.0 Unemployment, unspecified; Z71.51 Drug abuse counseling and surveillance of drug abuser; Z71.41 Alcohol abuse counseling and surveillance of alcoholic
CPT/HCPCS: 36415; 71275; 80053; 80061; 80143; 80179; 80306; 80320; 81001; 81025; 82075; 83036; 83735; 84443; 84484; 85025; 85379; 85610; 87635; 93005; 96361; 96374; 99285

== ENCOUNTER 2023-01-09 12:40 | Emergency (ER) | payer OTHER ==
[2023-01-09 13:39] LABS: Appearance,Urine Cloudy (Clear); Bacteria,Urine Moderate /hpf; Bilirubin,Urine Negative (Negative); Blood,Urine Trace (Negative); Color,Urine Yellow; Glucose,Urine (UA) Negative (Negative); Ketones,Urine Negative (Negative); Leukocyte Esterase,Urine Large (Negative); Mucus,Urine Many /hpf; Nitrite,Urine Negative (Negative); Protein,Urine Trace (Negative); RBC,Urine 9 /hpf (0-5); Specific Gravity,Urine 1.028 (1.001-1.035); Squamous Epithelial Cell,Urine 2 /hpf (0-4); Urobilinogen,Urine <2.0 mg/dL (<2.0); WBC,Urine 167 /hpf (0-5)
[2023-01-09] MEDS ORDERED: NITROFURANTOIN MONOHYD/M-CRYST 100 MG CAP PO STA (14:33)
--- NOTE | 2023-01-09 14:35 | ED ---
General Adult HPI - General Chief complaint: Urogenital Stated complaint: bladder infection Time Seen by Provider: 01/09/23 12:58 Source: patient, RN notes reviewed Mode of arrival: ambulatory Limitations: no limitations - History of Present Illness Initial comments: 42-year-old female presents to the emergency department chief complaint of urinary frequency and dysuria 2 days. She states she has otherwise been feeling well and has no other complaints. Patient denies blood in the urine. Patient denies fever, chills, abdominal pain, flank pain, nausea, vomiting, diarrhea. - Related Data Home Medications Medication Instructions Recorded Confirmed Cholecalciferol [Vitamin D3 (25 50 mcg PO DAILY 07/05/22 12/20/22 Mcg = 1000 Iu)] Fluticasone Nasal [place] [Flonase 2 spr EA NOSTRIL DAILY PRN 07/05/22 12/20/22 Nasal [place]] Gabapentin [Neurontin] 100 mg PO TID 07/05/22 12/20/22 Ocrelizumab [Ocrevus] 1 dose IV Q18D 12/20/22 12/20/22 SUMAtriptan succinate 100 mg PO BID PRN 12/20/22 12/20/22 Verapamil HCl [Verapamil ER] 120 mg PO DAILY 12/20/22 12/20/22 Previous Rx's Medication Instructions Recorded DULoxetine HCL [Cymbalta] 60 mg PO BID 14 Days #28 cap 12/26/22 [place] Carbonate ER [Lithobid] 450 mg PO DAILY 14 Days #14 tab 12/26/22 Nicotine 14Mg/24Hr Patch [Habitrol] 1 patch TRANSDERM DAILY 14 Days 12/26/22 #14 patch Propranolol [Inderal] 30 mg PO BID 14 Days #84 tab 12/26/22 busPIRone HCL [Buspar] 30 mg PO BID 14 Days #28 tablet 12/26/22 hydrOXYzine pamoate [hydrOXYzine 50 mg PO BID PRN 14 Days #56 cap 12/26/22 PAMOATE] traZODone HCL [Desyrel] 100 mg PO HS 14 Days #14 tab 12/26/22 Nitrofurantoin Monohyd/M-Cryst 100 mg PO Q12HR #10 cap 01/09/23 [Macrobid] Allergies Allergy/AdvReac Type Severity Reaction Status Date / Time vancomycin Allergy Severe Rash/Hives, Verified 01/09/23 12:55 itching, burning Review of Systems ROS Statement: Those systems with pertinent positive or pertinent negative responses have been documented in the HPI. ROS Other: All systems not noted in ROS Statement are negative. Past Medical History Past Medical History: Blood Disorder, Eye Disorder, Neurologic Disorder, Pulmonary Embolus (PE), Rheumatoid Arthritis (RA), Vascular Disorder Additional Past Medical History / Comment(s): MS, optic neuritis, proficiency C & S disorder, PE/pt cannot recall laterallity, aortic calcification, chin abscess/sepsis, UTI, chronic low back pain/bulging discs, possible ventral hernia, past meth abuse/clean for 19 months. History of Any Multi-Drug Resistant Organisms: MRSA Date of last positivie culture/infection: 04/09/22 MDRO Source:: Buttock Past Surgical History: Appendectomy Additional Past Surgical History / Comment(s): ectopic (2/ L fallopian tube rupture with surgery, R labia abscess/I&D Past Anesthesia/Blood Transfusion Reactions: No Reported Reaction Past Psychological History: Anxiety, Depression Smoking Status: Former smoker, Vaper Past Alcohol Use History: None Reported Past Drug Use History: Marijuana - Past Family History Father Family Medical History: No Reported History Mother History Unknown: Yes General Exam Limitations: no limitations General appearance: alert, in no apparent distress Head exam: Present: atraumatic, normocephalic, normal inspection Eye exam: Present: normal appearance, PERRL, EOMI. Absent: scleral icterus, conjunctival injection, periorbital swelling ENT exam: Present: normal exam, mucous membranes moist Neck exam: Present: normal inspection. Absent: tenderness, meningismus, lymphadenopathy Respiratory exam: Present: normal lung sounds bilaterally. Absent: respiratory distress, wheezes, rales, rhonchi, stridor Cardiovascular Exam: Present: regular rate, normal rhythm, normal heart sounds. Absent: systolic murmur, diastolic murmur, rubs, gallop, clicks GI/Abdominal exam: Present: soft, normal bowel sounds. Absent: distended, tenderness, guarding, rebound, rigid Extremities exam: Present: normal inspection, full ROM, normal capillary refill. Absent: tenderness, pedal edema, joint swelling, calf tenderness Back exam: Present: normal inspection. Absent: CVA tenderness (R), CVA tenderness (L) Neurological exam: Present: alert, oriented X3, CN II-XII intact Psychiatric exam: Present: normal affect, normal mood Skin exam: Present: warm, dry, intact, normal color. Absent: rash Course Vital Signs 01/09/23 01/09/23 12:52 14:56 Temperature 97.9 F 98.2 F Pulse Rate 89 76 Respiratory 20 16 Rate Blood Pressure 101/69 132/68 O2 Sat by Pulse 96 99 Oximetry Medical Decision Making - Medical Decision Making Was pt. sent in by a medical professional or institution (, [facility], [facility], urgent care, hospital, or longterm...) When possible be specific @ -No Did you speak to anyone other than the patient for history (EMS, parent, family, police, friend...)? What history was obtained from this source @ -No Did you review nursing and triage notes (agree or disagree)? Why? @ -I reviewed and agree with nursing and triage notes Were old charts reviewed (outside hosp., previous admission, EMS record, old EKG, old radiological studies, urgent care reports/EKG's, longterm records)? Report findings @ -No old charts were reviewed Differential Diagnosis (chest pain, altered mental status, abdominal pain women, abdominal pain men, vaginal bleeding, weakness, fever, dyspnea, syncope, headache, dizziness, GI bleed, back pain, seizure, CVA, palpatations, mental health, musculoskeletal)? @ -Cystitis, pyelonephritis, nephrolithiasis, STDs, this list is not all- inclusive EKG interpreted by me (3pts min.). @ -None X-rays interpreted by me (1pt min.). @ -None done CT interpreted by me (1pt min.). @ -None done U/S interpreted by me (1pt. min.). @ -None done What testing was considered but not performed or refused? (CT, X-rays, U/S, labs)? Why? @ -None What meds were considered but not given or refused? Why? @ -None Did you discuss the management of the patient with other professionals (professionals i.e. [facility] Chen, [facility], lab, RT, psych nurse, rn social services, yard pilot, teacher, special service officer, renal case manager)? Give summary @ -No Was smoking cessation discussed for >3mins.? @ -No Was critical care preformed (if so, how long)? @ -No Were there social determinants of health that impacted care today? How? (Homelessness, low income, unemployed, alcoholism, drug addiction, transportation, low edu. Level, literacy, decrease access to med. care, senior care, rehab)? @ -No Was there de-escalation of care discussed even if they declined (Discuss DNR or withdrawal of care, Hospice)? DNR status @ -No What co-morbidities impacted this encounter? (DM, HTN, Smoking, COPD, CAD, Cancer, CVA, ARF, Chemo, Hep., AIDS, mental health diagnosis, sleep apnea, morbid obesity)? @ -None Was patient admitted / discharged? Hospital course, mention meds given and route, prescriptions, significant lab abnormalities, going to OR and other pertinent info. @ -Discharged. Patient presented to emergency department chief complaint of urinary frequency and dysuria 2 days. UA showed leukocyte esterase, white blood cells, red blood cells. This is associated with the patient's symptoms warrants treatment for urinary tract infection. Patient was given a dose of Macrobid here and prescription was sent to patient's pharmacy. Patient advised of return precautions to take antibiotics to completion. Patient discharged in stable condition. Case discussed with my attending, Dr. Sepulveda Undiagnosed new problem with uncertain prognosis? @ -No Drug Therapy requiring intensive monitoring for toxicity (Heparin, Nitro, Insulin, Cardizem)? @ -No Were any procedures done? @ -No Diagnosis/symptom? @ -UTI Acute, or Chronic, or Acute on Chronic? @ -Acute Uncomplicated (without systemic symptoms) or Complicated (systemic symptoms)? @ -uncomplicated Side effects of treatment? @ -No Exacerbation, Progression, or Severe Exacerbation? @ -No Poses a threat to life or bodily function? How? (Chest pain, [place], MA, pneumonia, PE, COPD, DKA, ARF, appy, cholecystitis, CVA, Diverticulitis, Homicidal, Suicidal, threat to staff... and all critical care pts) @ -No - Lab Data Lab Results 01/09/23 01/09/23 Range/Units 13:14 13:14 Urine Color Yellow Urine Appearance Cloudy H (Clear) Urine pH 6.0 (5.0-8.0) Ur Specific [place] 1.028 (1.001-1.035) Urine Protein Trace H (Negative) Urine Glucose (UA) Negative (Negative) Urine Ketones Negative (Negative) Urine Blood Trace H (Negative) Urine Nitrite Negative (Negative) Urine Bilirubin Negative (Negative) Urine Urobilinogen <2.0 (<2.0) mg/dL Ur Leukocyte Esterase Large H (Negative) Urine RBC 9 H (0-5) /hpf Urine WBC 167 H (0-5) /hpf Ur Squamous Epith Cells 2 (0-4) /hpf Urine Bacteria Moderate H (None) /hpf Urine Mucus Many H (None) /hpf Urine HCG, Qual Not Detected (Not Detectd) Disposition Clinical Impression: Urinary tract infection Disposition: HOME SELF-CARE Condition: Stable Instructions (If sedation given, give patient instructions): Urinary Tract Infection in Women (ED) Additional Instructions: Please take antibiotics to completion. Return to the emergency department for new or worsening symptoms. Prescriptions: Nitrofurantoin Monohyd/M-Cryst [Macrobid] 100 mg PO Q12HR #10 cap Is patient prescribed a controlled substance at d/c from ED?: No Referrals: Dary La MD [Primary Care Provider] - 1-2 days Time of Disposition: 14:34
[2023-01-09 14:58] VITALS: BP 132/68; PULSE 76; RESP 16; TEMP 98.2
== END 2023-01-09 15:21 | disposition home or self-care (01) ==
LOC: EC 12:40
DX: N39.0 Urinary tract infection, site not specified (principal); F32.A Depression, unspecified; F41.9 Anxiety disorder, unspecified; F12.90 Cannabis use, unspecified, uncomplicated; F17.290 Nicotine dependence, other tobacco product, uncomplicated; Z79.899 Other long term (current) drug therapy; Z88.1 Allergy status to other antibiotic agents
CPT/HCPCS: 81001; 81025; 87077; 87086; 87186; 99283

== ENCOUNTER → 2023-03-10 | Outpatient (CLI) | payer OTHER ==
[2023-03-10 15:37] LABS: Basophils # (A) 0.08 X 10*3/uL (0.00-0.10); Basophils % (A) 0.9 %; Eosinophils # (A) 0.21 X 10*3/uL (0.04-0.35); Eosinophils % (A) 2.3 %; HCT 40.7 % (37.2-46.3); HGB 13.3 d/dL (12.0-15.0); Lymphocytes % (A) 22.7 %; MCH 28.6 pg (27.0-32.0); MCHC 32.7 d/dL (32.0-37.0); MCV 87.5 FL (80.0-97.0); Monocytes # (A) 0.52 X 10*3/uL (0.20-1.00); Monocytes % (A) 5.6 %; NRBC Per 100 WBC 0 X 10*3/uL (0.00-0.01); Neutrophils # (A) 6.29 X 10*3/uL (1.80-7.70); Neutrophils % (A) 68.1 %; Platelet Count 356 X 10*3/uL (140-440); RBC 4.65 X 10*6/uL (4.10-5.20); RDW 12.8 % (11.5-14.5); WBC 9.24 X 10*3/uL (4.50-10.00)
[2023-03-10 16:12] LABS: ALT 62 U/L (8-44); AST 45 U/L (13-35); Albumin 4.3 d/dL (3.8-4.9); Albumin/Globulin Ratio 1.65 Ratio (1.60-3.17); Alkaline Phosphatase 88 U/L (41-126); BUN/Creat Ratio 12.43 Ratio (12.00-20.00); Blood Urea Nitrogen 8.7 mg/dL (9.0-27.0); Calcium 9.3 mg/dL (8.7-10.3); Carbon Dioxide 23.8 mmol/L (21.6-31.8); Chloride 103 mmol/L (96-109); Globulin 2.6 d/dL (1.6-3.3); Glucose 108 mg/dL (70-110); Potassium 4.6 mmol/L (3.5-5.5); Sodium 138 mmol/L (135-145); Total Bilirubin 0.3 mg/dL (0.3-1.2); Total Protein 6.9 d/dL (6.2-8.2)
[2023-03-11 11:07] LABS: Natural Killer Cell (CD16/56) 150 cell/ul (60-500); Natural Killer Cell (CD16/56)% 7 % (3-24); T Helper Cell (CD4) 1603 cell/ul (443-1471); T Helper Cell (CD4) % 79 % (35-66); T Suppressor Cell (CD8) 257 cell/ul (190-832); T Suppressor Cell (CD8) % 13 % (9-37); T4/T8 Ratio (CD4:CD8) 6.2 (1.0-3.7); Total B Cell (CD19) <14 cell/ul (100-524); Total B Cell (CD19)% <1 % (4-25); Total T Cell (CD3) 1868 cell/ul (704-2138); Total T Cell (CD3)% 92 % (55-86)
== END | disposition home or self-care (01) ==
LOC: LABWHC1 11:28
PROVIDERS: ATTEND Nurse Practitioner
DX: G35 Multiple sclerosis (principal); G44.84 Primary exertional headache
CPT/HCPCS: 36415; 80053; 82784; 85025; 86355; 86357; 86359; 86360

== ENCOUNTER → 2023-03-30 | Outpatient (CLI) | payer OTHER ==
[2023-03-30 16:35] LABS: ALT 57 U/L (8-44); AST 45 U/L (13-35); Albumin 4.3 d/dL (3.8-4.9); Albumin/Globulin Ratio 1.72 Ratio (1.60-3.17); Alkaline Phosphatase 101 U/L (41-126); BUN/Creat Ratio 17.29 Ratio (12.00-20.00); Blood Urea Nitrogen 12.1 mg/dL (9.0-27.0); Calcium 9.6 mg/dL (8.7-10.3); Carbon Dioxide 21.7 mmol/L (21.6-31.8); Chloride 102 mmol/L (96-109); Globulin 2.5 d/dL (1.6-3.3); Glucose 137 mg/dL (70-110); Potassium 4.5 mmol/L (3.5-5.5); Sodium 136 mmol/L (135-145); Total Bilirubin 0.2 mg/dL (0.3-1.2); Total Protein 6.8 d/dL (6.2-8.2)
[2023-03-30 18:30] LABS: Basophils # (A) 0.08 X 10*3/uL (0.00-0.10); Basophils % (A) 0.8 %; Eosinophils # (A) 0.28 X 10*3/uL (0.04-0.35); HCT 40.2 % (37.2-46.3); HGB 12.8 d/dL (12.0-15.0); Lymphocytes # (A) 2.34 X 10*3/uL (0.90-5.00); Lymphocytes % (A) 24.8 %; MCH 27.9 pg (27.0-32.0); MCHC 31.8 d/dL (32.0-37.0); MCV 87.6 FL (80.0-97.0); Mean Platelet Volume 10.6 FL (9.5-12.2); Monocytes # (A) 0.52 X 10*3/uL (0.20-1.00); Monocytes % (A) 5.5 %; NRBC Per 100 WBC 0 X 10*3/uL (0.00-0.01); Neutrophils # (A) 6.18 X 10*3/uL (1.80-7.70); Neutrophils % (A) 65.5 %; Platelet Count 378 X 10*3/uL (140-440); RBC 4.59 X 10*6/uL (4.10-5.20); RDW 12.7 % (11.5-14.5); WBC 9.44 X 10*3/uL (4.50-10.00)
[2023-03-30 18:46] LABS: Erythrocyte Sedimentation Rate 83 mm/Hr (0-20)
== END | disposition home or self-care (01) ==
LOC: LABWHC1 10:37
PROVIDERS: ATTEND Internal Medicine Gastroenterology
DX: K52.9 Noninfective gastroenteritis and colitis, unspecified (principal)
CPT/HCPCS: 36415; 80053; 83516; 85025; 85652; 86140

== ENCOUNTER 2023-05-22 09:22 | Day surgery (SDC) | payer OTHER ==
[2023-05-20 15:52] VITALS: BMI 37.8
[~2023-05-22 09:22] MED LIST changes: -LACTATED RINGERS 1,000 ML IV ONE; +LACTATED RINGERS 1,000 ML IV SCH
[2023-05-22 10:16] VITALS: TEMP 97.2
[2023-05-22] MEDS ORDERED: PROPOFOL 10 MG/ML 20 ML VIAL IV ONE (10:29)
[2023-05-22] MEDS ORDERED: LIDOCAINE 1% INJ 10MG/ML (20 ML MDV) ONE (10:29)
--- NOTE | 2023-05-22 10:49 | P.PCN ---
Date of Procedure: 05/22/23 Procedure(s) Performed: Brief history: Patient is a pleasant 42-year-old white female scheduled for an elective upper endoscopy as well as colonoscopy as a part of evaluation of GERD and change in bowel habits. She is been having intermittent episodes of nausea vomiting and chronic diarrhea for the last 1 year duration. Bowel movements anywhere from 5- 6 a day which are loose to watery in consistency. Procedure performed: Esophagogastroduodenoscopy biopsy Colonoscopy with biopsy Preoperative diagnosis: GERD/intermittent nausea vomiting Chronic diarrhea Anesthesia: MAC Procedure: After informed consent was obtained from the patient was brought into the endoscopy unit and IV sedation was administered by anesthesia under continuous monitoring. Initially upper endoscopy was done. The Olympus GF 160 video endoscope was inserted inserted into the mouth and esophagus intubated without any difficulty and was gradually advanced into the stomach and duodenum and carefully examined. The bulb and second part of the duodenum appeared normal. His were done from the duodenum to rule out celiac disease. The scope was then withdrawn into the stomach adequately insufflated with air and upon careful examination the antrum and mild erythema and biopsies were done from this area. Because of the body, cardia and fundus appeared normal. The scope was then withdrawn into the esophagus. The GE junction was located at 40 cm to the incisors. It appeared regular with no erythema erosions or ulcerations. Rest of the esophagus appeared normal. Patient tolerated the procedure well. At this time the patient continued to remain sedation. Initial digital rectal examination was normal. Olympus CF 160 video colonoscope was then inserted into the rectum and gradually advanced to the cecum without any difficulty. Careful examination was performed as the scope was gradually being withdrawn. The prep was excellent. The cecum, ascending colon, transverse colon, descending colon, sigmoid colon and rectum appeared normal. Biopsies were done from ascending and descending colon to rule out microscopic /collagenous colitis. Retroflexion was performed in the rectum and no lesions were noted. Patient tolerated the procedure well. Impression: 1. Upper Endoscopy revealed mild antral gastritis but no evidence of esophagitis or peptic ulcer disease 2. Colonoscopy was within normal limits with no evidence of colorectal neoplasia Recommendations: Findings of this examination were discussed with the patient as well as her family. She was advised to follow with the biopsy results. She will be seen in office in 2 weeks.
[2023-05-22 11:51] VITALS: BP 122/85; PULSE 90; RESP 18
== END 2023-05-22 11:45 | disposition home or self-care (01) ==
LOC: ORWHC2ENDO 09:22
PROVIDERS: ATTEND Internal Medicine Gastroenterology
DX: K52.9 Noninfective gastroenteritis and colitis, unspecified (principal); R11.0 Nausea; K29.70 Gastritis, unspecified, without bleeding; I73.9 Peripheral vascular disease, unspecified; F31.9 Bipolar disorder, unspecified; F17.210 Nicotine dependence, cigarettes, uncomplicated; Z98.890 Other specified postprocedural states; Z79.899 Other long term (current) drug therapy
CPT/HCPCS: 81025; 88305; 45380; 43239; J2001; J2704

== ENCOUNTER → 2023-06-17 | Outpatient (CLI) | payer OTHER ==
[2023-06-17 15:13] LABS: Basophils # (A) 0.1 k/uL (0-0.2); Basophils % (A) 1 %; Eosinophils # (A) 0.3 k/uL (0-0.7); Eosinophils % (A) 3 %; HCT 40.7 % (34.0-46.0); Lymphocytes # (A) 3.2 k/uL (1.0-4.8); Lymphocytes % (A) 29 %; MCH 28.1 pg (25.0-35.0); MCV 87.9 fL (80.0-100.0); Mean Platelet Volume 7.8; Monocytes # (A) 0.5 k/uL (0-1.0); Monocytes % (A) 4 %; Neutrophils # (A) 6.8 k/uL (1.3-7.7); Neutrophils % (A) 62 %; Platelet Count 321 k/uL (150-450); RBC 4.62 m/uL (3.80-5.40); RDW 13.4 % (11.5-15.5)
[2023-06-17 15:24] LABS: Appearance,Urine Clear (Clear); Bilirubin,Urine Negative (Negative); Blood,Urine Negative (Negative); Color,Urine Yellow; Glucose,Urine (UA) Negative (Negative); Ketones,Urine Negative (Negative); Leukocyte Esterase,Urine Negative (Negative); Nitrite,Urine Negative (Negative); Protein,Urine Negative (Negative); Specific Gravity,Urine 1.026 (1.001-1.035); Urobilinogen,Urine <2.0 mg/dL (<2.0)
[2023-06-17 15:37] LABS: ALT 54 U/L (4-34); AST 38 U/L (14-36); African American GFR (CKD) >90 (>60 ml/min/1.73 sqM); Albumin 4.4 g/dL (3.5-5.0); Albumin/Globulin Ratio 1.4; Alkaline Phosphatase 106 U/L (38-126); Amylase 52 U/L (30-110); Anion Gap 11 mmol/L; Blood Urea Nitrogen 13 mg/dL (7-17); Calcium 9.3 mg/dL (8.4-10.2); Carbon Dioxide 24 mmol/L (22-30); Chloride 102 mmol/L (98-107); Globulin 3.1 g/dL; Glucose 115 mg/dL (74-99); Lipase 87 U/L (23-300); Non-African American GFR(CKD) >90 (>60 ml/min/1.73 sqM); Potassium 4.5 mmol/L (3.5-5.1); Sodium 137 mmol/L (137-145); Total Bilirubin 0.4 mg/dL (0.2-1.3); Total Protein 7.5 g/dL (6.3-8.2)
== END | disposition home or self-care (01) ==
LOC: LABWHC1 14:49
PROVIDERS: ATTEND Internal Medicine
DX: R10.9 Unspecified abdominal pain (principal); R30.0 Dysuria
CPT/HCPCS: 36415; 80053; 81003; 82150; 83690; 85025

== ENCOUNTER → 2023-06-18 | Outpatient (CLI) | payer OTHER ==
--- NOTE | 2023-06-18 09:28 | US ---
EXAMINATION TYPE: US abdomen complete DATE OF EXAM: 06/18/2023 COMPARISON: CT 2019 CLINICAL INDICATION: Female, 42 years old with history of R10.9 ABD PAIN; TECHNIQUE: Multiple sonographic images of the abdomen are obtained. FINDINGS: EXAM MEASUREMENTS: Liver Length: 18.7 cm Gallbladder Wall: 0.1 cm CBD: 0.3 cm Spleen: 9.9 cm Right Kidney: 11.6 x 4.8 x 5.5 cm Left Kidney: 11.2 x 5.9 x 5.1 cm Difficult and limited study due to patient body habitus Pancreas: visualized portions wnl, limited by overlying midline bowel gas Liver: enlarged, heterogeneous, increased attenuation, decreased visualization of vessels suggestive of fatty infiltrate Gallbladder: wnl Evidence for sonographic Bobby's sign: yes CBD: visualized portions wnl, limited by overlying bowel gas Spleen: wnl Right Kidney: wnl Left Kidney: wnl Upper IVC: wnl Abd Aorta: proximal and mid portions wnl, distal portion obscured by overlying midline bowel gas The liver is heterogenous. The intrahepatic portion of the IVC and proximal abdominal aorta are withi n normal limits. There is no evidence of cholelithiasis. Common bile duct is unremarkable. The vis ualized portions of the pancreas are homogenous. The spleen is unremarkable. Kidneys are symmetric and free of hydronephrosis. No renal lesions are seen. IMPRESSION: 1. Hepatomegaly with underlying hepatic steatosis.
== END | disposition home or self-care (01) ==
LOC: RADUSWWP 08:50
PROVIDERS: ATTEND Internal Medicine
DX: K76.0 Fatty (change of) liver, not elsewhere classified (principal); R16.0 Hepatomegaly, not elsewhere classified
CPT/HCPCS: 76700

== ENCOUNTER 2023-07-05 15:59 | Emergency (ER) | payer OTHER ==
[2023-07-05 16:26] VITALS: BP 138/82; PULSE 101; RESP 20; TEMP 98.1
[2023-07-05] MEDS ORDERED: AMOXIC-POT CLAV 875-125MG 1 EACH TAB PO STA (16:27)
--- NOTE | 2023-07-05 16:27 | ED ---
ENT HPI - General Chief complaint: ENT Stated complaint: L Ear Pain Time Seen by Provider: 07/05/23 16:10 Source: patient, RN notes reviewed Mode of arrival: ambulatory Limitations: no limitations - History of Present Illness Initial comments: 42-year-old female presents emergency from she went left ear pain, pressure. Patient states that this has been bothersome or last week. She states she has associated headache patient denies any fevers chills neck pain cough and cold- like symptoms. She states she cannot hear out of her left ear. - Related Data Home Medications Medication Instructions Recorded Confirmed Cholecalciferol [Vitamin D3 (25 50 mcg PO DAILY 07/05/22 05/22/23 Mcg = 1000 Iu)] Fluticasone Nasal [place] [Flonase 2 spr EA NOSTRIL DAILY PRN 07/05/22 05/22/23 Nasal [place]] SUMAtriptan succinate 100 mg PO BID PRN 12/20/22 05/22/23 Verapamil HCl [Verapamil ER] 120 mg PO DAILY 12/20/22 05/22/23 Meloxicam 7.5 mg PO DAILY 05/20/23 05/22/23 tiZANidine [Zanaflex] 4 mg PO HS 05/20/23 05/22/23 Previous Rx's Medication Instructions Recorded DULoxetine HCL [Cymbalta] 60 mg PO BID 14 Days #28 cap 12/26/22 Tensed Carbonate ER [Lithobid] 450 mg PO DAILY 14 Days #14 tab 12/26/22 busPIRone HCL [Buspar] 30 mg PO BID 14 Days #28 tablet 12/26/22 hydrOXYzine pamoate [hydrOXYzine 50 mg PO BID PRN 14 Days #56 cap 12/26/22 PAMOATE] traZODone HCL [Desyrel] 100 mg PO HS 14 Days #14 tab 12/26/22 Amoxic-Pot Clav 875-125Mg 1 tab PO Q12HR #20 tab 07/05/23 [Augmentin 875-125] Allergies Allergy/AdvReac Type Severity Reaction Status Date / Time vancomycin Allergy Severe Rash/Hives, Verified 07/05/23 16:17 itching, burning Review of Systems ROS Statement: Those systems with pertinent positive or pertinent negative responses have been documented in the HPI. ROS Other: All systems not noted in ROS Statement are negative. Past Medical History Past Medical History: Blood Disorder, Eye Disorder, Neurologic Disorder, Pulmonary Embolus (PE), Rheumatoid Arthritis (RA), Vascular Disorder Additional Past Medical History / Comment(s): MS, optic neuritis, PE/pt cannot recall laterallity, aortic calcification, chronic low back pain/bulging discs, possible ventral hernia, past meth abuse/clean for 28 months. EXPLOSIVE DIARRHEA History of Any Multi-Drug Resistant Organisms: MRSA Date of last positivie culture/infection: 04/09/22 MDRO Source:: Buttock Past Surgical History: Appendectomy Additional Past Surgical History / Comment(s): ectopic (2/ L fallopian tube rupture with surgery, R labia abscess/I&D Past Anesthesia/Blood Transfusion Reactions: No Reported Reaction Past Psychological History: Anxiety, Depression Smoking Status: Former smoker, Vaper Past Alcohol Use History: None Reported Past Drug Use History: Marijuana - Past Family History Father Family Medical History: No Reported History Mother History Unknown: Yes General Exam Limitations: no limitations General appearance: alert, in no apparent distress Head exam: Present: atraumatic, normocephalic, normal inspection Eye exam: Present: normal appearance, PERRL, EOMI. Absent: scleral icterus, conjunctival injection, periorbital swelling ENT exam: Present: normal oropharynx, mucous membranes moist, normal external ear exam. Absent: TM's normal bilaterally (Erythematous left, moderate fluid noted canal clear) Neck exam: Present: normal inspection, full ROM. Absent: tenderness, meningismus, lymphadenopathy Respiratory exam: Present: normal lung sounds bilaterally. Absent: respiratory distress, wheezes, rales, rhonchi, stridor Course Vital Signs 07/05/23 16:16 Temperature 98.1 F Pulse Rate 101 H Respiratory 20 Rate Blood Pressure 138/82 O2 Sat by Pulse 99 Oximetry Medical Decision Making - Medical Decision Making Was pt. sent in by a medical professional or institution (, PA, TUBE REPAIRER, urgent care, hospital, or penitentiary...) When possible be specific @ -No Did you speak to anyone other than the patient for history (EMS, parent, family, police, friend...)? What history was obtained from this source @ -No Did you review nursing and triage notes (agree or disagree)? Why? @ -I reviewed and agree with nursing and triage notes Were old charts reviewed (outside hosp., previous admission, EMS record, old EKG, old radiological studies, urgent care reports/EKG's, penitentiary records)? Report findings @ -No old charts were reviewed Differential Diagnosis (chest pain, altered mental status, abdominal pain women, abdominal pain men, vaginal bleeding, weakness, fever, dyspnea, syncope, headache, dizziness, GI bleed, back pain, seizure, CVA, palpatations, mental health, musculoskeletal)? @ -Otitis media, otitis externa, eustachian tube dysfunction, otalgia EKG interpreted by me (3pts min.). @ -None X-rays interpreted by me (1pt min.). @ -None done CT interpreted by me (1pt min.). @ -None done U/S interpreted by me (1pt. min.). @ -None done What testing was considered but not performed or refused? (CT, X-rays, U/S, labs)? Why? @ -None] What meds were considered but not given or refused? Why? @ -[None] Did you discuss the management of the patient with other professionals (professionals i.e. , PA, TUBE REPAIRER, lab, RT, psych nurse, social work lecturer, admin secretary, teacher, cash management officer, case sealer)? Give summary @ -[No] Was smoking cessation discussed for >3mins.? @ -[No] Was critical care preformed (if so, how long)? @ -[No] Were there social determinants of health that impacted care today? How? (Homelessness, low income, unemployed, alcoholism, drug addiction, transportation, low edu. Level, literacy, decrease access to med. care, senior care, rehab)? @ -[No] Was there de-escalation of care discussed even if they declined (Discuss DNR or withdrawal of care, Hospice)? DNR status @ -[No] What co-morbidities impacted this encounter? (DM, HTN, Smoking, COPD, CAD, Cancer, CVA, ARF, Chemo, Hep., AIDS, mental health diagnosis, sleep apnea, morbid obesity)? @ -[None] Was patient admitted / discharged? Hospital course, mention meds given and route, prescriptions, significant lab abnormalities, going to OR and other pertinent info. @ -[Discharge patient has underlying eustachian tube dysfunction, causing otitis media patient started on Augmentin. Patient will take [id number] antihistamine, decongestant patient will follow-up PCP return parameters were discussed.] Undiagnosed new problem with uncertain prognosis? @ -[No] Drug Therapy requiring intensive monitoring for toxicity (Heparin, Nitro, Insulin, Cardizem)? @ -[No] Were any procedures done? @ -[No] Diagnosis/symptom? @ -[Eustachian tube dysfunction, otalgia, otitis media] Acute, or Chronic, or Acute on Chronic? @ -[Acute] Uncomplicated (without systemic symptoms) or Complicated (systemic symptoms)? @ -[Uncomplicated Side effects of treatment? @ -[No] Exacerbation, Progression, or Severe Exacerbation? @ -[No] Poses a threat to life or bodily function? How? (Chest pain, [place], [place], pneumonia, PE, COPD, DKA, ARF, appy, cholecystitis, CVA, Diverticulitis, Homicidal, Suicidal, threat to staff... and all critical care pts) @ -[No] Disposition Clinical Impression: Eustachian tube dysfunction, Otitis media Disposition: HOME SELF-CARE Condition: Stable Instructions (If sedation given, give patient instructions): Earache (ED) Additional Instructions: Please return to the Emergency Department if symptoms worsen or any other concerns. Prescriptions: Amoxic-Pot Clav 875-125Mg [Augmentin 875-125] 1 tab PO Q12HR #20 tab Is patient prescribed a controlled substance at d/c from ED?: No Referrals: Dary La MD [Primary Care Provider] - 1-2 days Time of Disposition: 16:27
== END 2023-07-05 16:38 | disposition home or self-care (01) ==
LOC: EC 15:59
DX: H69.92 Unspecified Eustachian tube disorder, left ear (principal); H65.92 Unspecified nonsuppurative otitis media, left ear; M06.9 Rheumatoid arthritis, unspecified; F41.9 Anxiety disorder, unspecified; F32.A Depression, unspecified; F17.290 Nicotine dependence, other tobacco product, uncomplicated; F12.90 Cannabis use, unspecified, uncomplicated; Z88.8 Allergy status to other drugs, medicaments and biological substances; Z79.899 Other long term (current) drug therapy
CPT/HCPCS: 99282

== ENCOUNTER 2023-07-07 07:03 | Emergency (ER) | payer OTHER ==
[2023-07-07] MEDS ORDERED: ONDANSETRON 4 MG/2 ML VIAL IVP STA (07:19)
[2023-07-07] MEDS ORDERED: SODIUM CHLORIDE 0.9% 1,000 ML IV ONE (07:19)
[2023-07-07 07:42] LABS: Basophils % (A) 0 %; Eosinophils # (A) 0.5 k/uL (0-0.7); Eosinophils % (A) 5 %; HCT 44.1 % (34.0-46.0); HGB 14.4 gm/dL (11.4-16.0); Lymphocytes # (A) 1.9 k/uL (1.0-4.8); Lymphocytes % (A) 21 %; MCH 28.2 pg (25.0-35.0); MCHC 32.7 g/dL (31.0-37.0); MCV 86.5 fL (80.0-100.0); Mean Platelet Volume 7.6; Monocytes # (A) 0.4 k/uL (0-1.0); Monocytes % (A) 4 %; Neutrophils # (A) 6.4 k/uL (1.3-7.7); Neutrophils % (A) 68 %; Platelet Count 413 k/uL (150-450); RBC 5.09 m/uL (3.80-5.40); RDW 13.9 % (11.5-15.5); WBC 9.4 k/uL (3.8-10.6)
[2023-07-07 08:05] LABS: Appearance,Urine Cloudy (Clear); Bilirubin,Urine 1+ (Negative); Blood,Urine Negative (Negative); Color,Urine Orange; Glucose,Urine (UA) Negative (Negative); Ketones,Urine Trace (Negative); Leukocyte Esterase,Urine Negative (Negative); Mucus,Urine Many /hpf; Nitrite,Urine Negative (Negative); Protein,Urine 3+ (Negative); RBC,Urine 4 /hpf (0-5); Specific Gravity,Urine 1.045 (1.001-1.035); Squamous Epithelial Cell,Urine 6 /hpf (0-4); WBC,Urine 2 /hpf (0-5)
[2023-07-07 08:19] LABS: ALT 90 U/L (4-34); AST 68 U/L (14-36); African American GFR (CKD) >90 (>60 ml/min/1.73 sqM); Albumin 4.6 g/dL (3.5-5.0); Alkaline Phosphatase 122 U/L (38-126); Anion Gap 17 mmol/L; Blood Urea Nitrogen 11 mg/dL (7-17); Calcium 9.6 mg/dL (8.4-10.2); Carbon Dioxide 18 mmol/L (22-30); Chloride 99 mmol/L (98-107); Glucose 151 mg/dL (74-99); Non-African American GFR(CKD) >90 (>60 ml/min/1.73 sqM); Potassium 4.6 mmol/L (3.5-5.1); Sodium 134 mmol/L (137-145); Total Bilirubin 0.9 mg/dL (0.2-1.3); Total Protein 7.8 g/dL (6.3-8.2)
[2023-07-07 08:45] VITALS: BP 138/89; PULSE 89; RESP 16; TEMP 98.5
[2023-07-07] MEDS ORDERED: ONDANSETRON 4 MG ODT STARTER PACK 2 TAB BTL PO STA (08:53)
--- NOTE | 2023-07-07 08:54 | ED ---
General Adult HPI - General Chief complaint: Nausea/Vomiting/Diarrhea Stated complaint: Vomiting Time Seen by Provider: 07/07/23 07:08 Source: patient, RN notes reviewed Mode of arrival: ambulatory Limitations: no limitations - History of Present Illness Initial comments: 42-year-old female with no significant past medical history presents the emergency department with a chief complaint of nausea and vomiting. Patient reports nausea and vomiting over the last 2 days. She denies any recent sick contacts. He denies any known fevers or chills. She denies chest pain or shortness of breath, abdominal pain. Denies recent alcohol use. Of note she had cantaloupe and was watching the news were there was a recent outbreak of Salmonella. - Related Data Home Medications Medication Instructions Recorded Confirmed Cholecalciferol [Vitamin D3 (25 50 mcg PO DAILY 07/05/22 05/22/23 Mcg = 1000 Iu)] Fluticasone Nasal [place] [Flonase 2 spr EA NOSTRIL DAILY PRN 07/05/22 05/22/23 Nasal [place]] SUMAtriptan succinate 100 mg PO BID PRN 12/20/22 05/22/23 Verapamil HCl [Verapamil ER] 120 mg PO DAILY 12/20/22 05/22/23 Meloxicam 7.5 mg PO DAILY 05/20/23 05/22/23 tiZANidine [Zanaflex] 4 mg PO HS 05/20/23 05/22/23 Previous Rx's Medication Instructions Recorded DULoxetine HCL [Cymbalta] 60 mg PO BID 14 Days #28 cap 12/26/22 [employer] Carbonate ER [Lithobid] 450 mg PO DAILY 14 Days #14 tab 12/26/22 busPIRone HCL [Buspar] 30 mg PO BID 14 Days #28 tablet 12/26/22 hydrOXYzine pamoate [hydrOXYzine 50 mg PO BID PRN 14 Days #56 cap 12/26/22 PAMOATE] traZODone HCL [Desyrel] 100 mg PO HS 14 Days #14 tab 12/26/22 Amoxic-Pot Clav 875-125Mg 1 tab PO Q12HR #20 tab 07/05/23 [Augmentin 875-125] Dicyclomine [Bentyl] 20 mg PO TID #30 tablet 07/07/23 Allergies Allergy/AdvReac Type Severity Reaction Status Date / Time vancomycin Allergy Severe Rash/Hives, Verified 07/07/23 07:06 itching, burning Review of Systems ROS Statement: Those systems with pertinent positive or pertinent negative responses have been documented in the HPI. ROS Other: All systems not noted in ROS Statement are negative. Past Medical History Past Medical History: Blood Disorder, Eye Disorder, Neurologic Disorder, Pulmona ry Embolus (PE), Rheumatoid Arthritis (RA), Vascular Disorder Additional Past Medical History / Comment(s): MS, optic neuritis, PE/pt cannot recall laterallity, aortic calcification, chronic low back pain/bulging discs, possible ventral hernia, past meth abuse/clean for 28 months. EXPLOSIVE DIARRHEA History of Any Multi-Drug Resistant Organisms: MRSA Date of last positivie culture/infection: 04/09/22 MDRO Source:: Buttock Past Surgical History: Appendectomy Additional Past Surgical History / Comment(s): ectopic (2/ L fallopian tube rupture with surgery, R labia abscess/I&D Past Anesthesia/Blood Transfusion Reactions: No Reported Reaction Past Psychological History: Anxiety, Depression Smoking Status: Former smoker, Vaper Past Alcohol Use History: None Reported Past Drug Use History: Marijuana - Past Family History Father Family Medical History: No Reported History Mother History Unknown: Yes General Exam - General Exam Comments Initial Comments: General: Alert, in no acute distress Head: atraumatic normocephalic. Eyes PERRL, EOMI intact, mucous membranes moist Respiratory: Lungs clear to auscultation bilaterally Cardiovascular: Heart rate regular rate and rhythm Abdominal: Soft without guarding or rebound Extremities: Normal inspection with full range of motion and normal capillary refill Neuroogic: alert and oriented 3, CN II-XII intact, able to ambulate with steady gait Skin: warm dry and intact with normal color Limitations: no limitations Course Vital Signs 07/07/23 07/07/23 07/07/23 07:04 07:16 08:29 Temperature 97.6 F 98.1 F 98.5 F Pulse Rate 105 H 89 Respiratory 20 16 Rate Blood Pressure 150/87 138/89 O2 Sat by Pulse 95 95 Oximetry - Reevaluation(s) Reevaluation #1: 07/07/23 09:17 should reevaluated. Patient reports symptomatic improvement status post medications. Medical Decision Making - Medical Decision Making Was pt. sent in by a medical professional or institution (Dr., PA, MECHANICAL PROJECT MANAGER, urgent care, hospital, or half-way...) When possible be specific @ -[No] Did you speak to anyone other than the patient for history (EMS, parent, family, police, friend...)? What history was obtained from this source @ -[No] Did you review nursing and triage notes (agree or disagree)? Why? @ -[I reviewed and agree with nursing and triage notes] Were old charts reviewed (outside hosp., previous admission, EMS record, old EKG, old radiological studies, urgent care reports/EKG's, half-way records)? Report findings @ -yes, 07/05/2023 patient was evaluated for ear pain. Differential Diagnosis (chest pain, altered mental status, abdominal pain women, abdominal pain men, vaginal bleeding, weakness, fever, dyspnea, syncope, headache, dizziness, GI bleed, back pain, seizure, CVA, palpatations, mental health, musculoskeletal)? @ -[not applicable] EKG interpreted by me (3pts min.). @ -[As above] X-rays interpreted by me (1pt min.). @ -[None done] CT interpreted by me (1pt min.). @ -[None done] U/S interpreted by me (1pt. min.). @ -[None done] What testing was considered but not performed or refused? (CT, X-rays, U/S, labs)? Why? @ -[None] What meds were considered but not given or refused? Why? @ -[None] Did you discuss the management of the patient with other professionals (professionals i.e. VALDEZ Chen, MECHANICAL PROJECT MANAGER, lab, RT, psych nurse, home health care social worker, drilling engineer, teacher, air control/anti air warfare officer, family caseworker)? Give summary @ -[No] Was smoking cessation discussed for >3mins.? @ -[No] Was critical care preformed (if so, how long)? @ -[No] Were there social determinants of health that impacted care today? How? (Homelessness, low income, unemployed, alcoholism, drug addiction, transportation, low edu. Level, literacy, decrease access to med. care, correction, rehab)? @ -[No] Was there de-escalation of care discussed even if they declined (Discuss DNR or withdrawal of care, Hospice)? DNR status @ -[No] What co-morbidities impacted this encounter? (DM, HTN, Smoking, COPD, CAD, Cancer, CVA, ARF, Chemo, Hep., AIDS, mental health diagnosis, sleep apnea, morbid obesity)? @ -[None] Was patient admitted / discharged? Hospital course, mention meds given and route, prescriptions, significant lab abnormalities, going to OR and other pertinent info. @Discharged. This is a pleasant 42-year-old female who presents the emergency department with nausea and vomiting. Patient had a history and physical exam performed. Physical syncopal. Abdomen soft nontender. Patient had laboratory studies which were unremarkable. She is provided Zofran, Pepcid, 1 L IV fluids with symptomatic improvement. Results were discussed at length. All questions were addressed. Discharged in stable condition. Case is discussed with Dr. schumacher, ED attending who agrees with plan of care Undiagnosed new problem with uncertain prognosis? @ -[No] Drug Therapy requiring intensive monitoring for toxicity (Heparin, Nitro, Insulin, Cardizem)? @ -[No] Were any procedures done? @ -[No] Diagnosis/symptom? @ -Nausea and vomiting Acute, or Chronic, or Acute on Chronic? @ -Acute Uncomplicated (without systemic symptoms) or Complicated (systemic symptoms)? @ -Uncomplicated Side effects of treatment? @ -[No] Exacerbation, Progression, or Severe Exacerbation? @ -[No] Poses a threat to life or bodily function? How? (Chest pain, [place], [place], pneumonia, PE, COPD, DKA, ARF, appy, cholecystitis, CVA, Diverticulitis, Homicidal, Sarah cidal, threat to staff... and all critical care pts) @ -Low likelihood - Lab Data Result diagrams: 07/07/23 07:26 07/07/23 07:26 Lab Results 07/07/23 07/07/23 07/07/23 Range/Units 07:26 07:26 07:26 WBC 9.4 (3.8-10.6) k/uL RBC 5.09 (3.80-5.40) m/uL Hgb 14.4 (11.4-16.0) gm/dL Hct 44.1 (34.0-46.0) % MCV 86.5 (80.0-100.0) fL MCH 28.2 (25.0-35.0) pg MCHC 32.7 (31.0-37.0) g/dL RDW 13.9 (11.5-15.5) % Plt Count 413 (150-450) k/uL MPV 7.6 Neutrophils % 68 % Lymphocytes % 21 % Monocytes % 4 % Eosinophils % 5 % Basophils % 0 % Neutrophils # 6.4 (1.3-7.7) k/uL Lymphocytes # 1.9 (1.0-4.8) k/uL Monocytes # 0.4 (0-1.0) k/uL Eosinophils # 0.5 (0-0.7) k/uL Basophils # 0.0 (0-0.2) k/uL Sodium (137-145) mmol/L Potassium (3.5-5.1) mmol/L Chloride (98-107) mmol/L Carbon Dioxide (22-30) mmol/L Anion Gap mmol/L BUN (7-17) mg/dL Creatinine (0.52-1.04) mg/dL Est GFR (CKD-EPI)AfAm (>60 ml/min/1.73 sqM) Est GFR (CKD-EPI)NonAf (>60 ml/min/1.73 sqM) Glucose (74-99) mg/dL Calcium (8.4-10.2) mg/dL Total Bilirubin (0.2-1.3) mg/dL AST (14-36) U/L ALT (4-34) U/L Alkaline Phosphatase (38-126) U/L Total Protein (6.3-8.2) g/dL Albumin (3.5-5.0) g/dL Urine Color [place] Urine Appearance Cloudy H (Clear) Urine pH 6.0 (5.0-8.0) Ur Specific [place] 1.045 H (1.001-1.035) Urine Protein 3+ H (Negative) Urine Glucose (UA) Negative (Negative) Urine Ketones Trace H (Negative) Urine Blood Negative (Negative) Urine Nitrite Negative (Negative) Urine Bilirubin 1+ H (Negative) Urine Urobilinogen 4.0 (<2.0) mg/dL Ur Leukocyte Esterase Negative (Negative) Urine RBC 4 (0-5) /hpf Urine WBC 2 (0-5) /hpf Ur Squamous Epith Cells 6 H (0-4) /hpf Urine Mucus Many H (None) /hpf Influenza Type A (PCR) Not Detected (Not Detectd) Influenza Type B (PCR) Not Detected (Not Detectd) RSV (PCR) Not Detected (Not Detectd) SARS-CoV-2 (PCR) Not Detected (Not Detectd) 07/07/23 Range/Units 07:26 WBC (3.8-10.6) k/uL RBC (3.80-5.40) m/uL Hgb (11.4-16.0) gm/dL Hct (34.0-46.0) % MCV (80.0-100.0) fL MCH (25.0-35.0) pg MCHC (31.0-37.0) g/dL RDW (11.5-15.5) % Plt Count (150-450) k/uL MPV Neutrophils % % Lymphocytes % % Monocytes % % Eosinophils % % Basophils % % Neutrophils # (1.3-7.7) k/uL Lymphocytes # (1.0-4.8) k/uL Monocytes # (0-1.0) k/uL Eosinophils # (0-0.7) k/uL Basophils # (0-0.2) k/uL Sodium 134 L (137-145) mmol/L Potassium 4.6 (3.5-5.1) mmol/L Chloride 99 (98-107) mmol/L Carbon Dioxide 18 L (22-30) mmol/L Anion Gap 17 mmol/L BUN 11 (7-17) mg/dL Creatinine 0.56 (0.52-1.04) mg/dL Est GFR (CKD-EPI)AfAm >90 (>60 ml/min/1.73 sqM) Est GFR (CKD-EPI)NonAf >90 (>60 ml/min/1.73 sqM) Glucose 151 H (74-99) mg/dL Calcium 9.6 (8.4-10.2) mg/dL Total Bilirubin 0.9 (0.2-1.3) mg/dL AST 68 H (14-36) U/L ALT 90 H (4-34) U/L Alkaline Phosphatase 122 (38-126) U/L Total Protein 7.8 (6.3-8.2) g/dL Albumin 4.6 (3.5-5.0) g/dL Urine Color Urine Appearance (Clear) Urine pH (5.0-8.0) Ur Specific [place] (1.001-1.035) Urine Protein (Negative) Urine Glucose (UA) (Negative) Urine Ketones (Negative) Urine Blood (Negative) Urine Nitrite (Negative) Urine Bilirubin (Negative) Urine Urobilinogen (<2.0) mg/dL Ur Leukocyte Esterase (Negative) Urine RBC (0-5) /hpf Urine WBC (0-5) /hpf Ur Squamous Epith Cells (0-4) /hpf Urine Mucus (None) /hpf Influenza Type A (PCR) (Not Detectd) Influenza Type B (PCR) (Not Detectd) RSV (PCR) (Not Detectd) SARS-CoV-2 (PCR) (Not Detectd) Disposition Clinical Impression: Food poisoning, Nausea and vomiting Disposition: HOME SELF-CARE Additional Instructions: These take Zofran for nausea Please take Bentyl for abdominal cramps Please return to the nearest emergency department if worsening pain or persistent nausea or vomiting Prescriptions: Dicyclomine [Bentyl] 20 mg PO TID #30 tablet Is patient prescribed a controlled substance at d/c from ED?: No Referrals: Dary La MD [Primary Care Provider] - 1-2 days Time of Disposition: 08:54
== END 2023-07-07 09:06 | disposition home or self-care (01) ==
LOC: EC 07:03
DX: A05.9 Bacterial foodborne intoxication, unspecified (principal); F17.290 Nicotine dependence, other tobacco product, uncomplicated; F12.90 Cannabis use, unspecified, uncomplicated; Z86.59 Personal history of other mental and behavioral disorders; Z20.822 Contact with and (suspected) exposure to COVID-19
CPT/HCPCS: 36415; 80053; 85025; 81001; 87636; 99284; 96374; 96361; J2405; S0119

== ENCOUNTER 2023-07-08 09:17 | Observation (INO) | payer OTHER ==
[2023-07-08] MEDS ORDERED: FAMOTIDINE 20 MG/2 ML VIAL IV STA (09:34)
[2023-07-08] MEDS ORDERED: SODIUM CHLORIDE 0.9% 1,000 ML IV ONE (09:34)
[2023-07-08] MEDS ORDERED: ONDANSETRON 4 MG/2 ML VIAL IVP STA (09:34)
[2023-07-08 10:07] LABS: ALT 76 U/L (4-34); AST 51 U/L (14-36); African American GFR (CKD) >90 (>60 ml/min/1.73 sqM); Albumin 4.4 g/dL (3.5-5.0); Alkaline Phosphatase 115 U/L (38-126); Amylase 49 U/L (30-110); Anion Gap 15 mmol/L; Blood Urea Nitrogen 12 mg/dL (7-17); Calcium 9.3 mg/dL (8.4-10.2); Carbon Dioxide 21 mmol/L (22-30); Chloride 101 mmol/L (98-107); Glucose 145 mg/dL (74-99); Lipase 149 U/L (23-300); Non-African American GFR(CKD) >90 (>60 ml/min/1.73 sqM); Sodium 137 mmol/L (137-145); Total Bilirubin 0.9 mg/dL (0.2-1.3); Total Protein 7.5 g/dL (6.3-8.2)
[2023-07-08 10:16] LABS: Basophils % (A) 0 %; Eosinophils # (A) 0.3 k/uL (0-0.7); Eosinophils % (A) 4 %; HCT 43.8 % (34.0-46.0); HGB 14.3 gm/dL (11.4-16.0); Lymphocytes # (A) 1.7 k/uL (1.0-4.8); Lymphocytes % (A) 20 %; MCH 28.3 pg (25.0-35.0); MCHC 32.7 g/dL (31.0-37.0); MCV 86.7 fL (80.0-100.0); Mean Platelet Volume 7.7; Monocytes # (A) 0.6 k/uL (0-1.0); Monocytes % (A) 7 %; Neutrophils # (A) 5.7 k/uL (1.3-7.7); Neutrophils % (A) 67 %; Platelet Count 364 k/uL (150-450); RBC 5.05 m/uL (3.80-5.40); RDW 13.9 % (11.5-15.5); WBC 8.5 k/uL (3.8-10.6)
--- NOTE | 2023-07-08 10:34 | ED ---
General Adult HPI - General Chief complaint: Abdominal Pain Stated complaint: abd pain,vomiting Time Seen by Provider: 07/08/23 09:23 Source: patient, RN notes reviewed Mode of arrival: ambulatory Limitations: no limitations - History of Present Illness Initial comments: 42-year-old female with no significant past medical history presents the emergency department with a chief complaint of nausea and vomiting. Patient was here yesterday for the same. She denies no resolution of symptoms. She is also complaining of right upper quadrant abdominal pain. She reports that her symptoms are provoked with food. Denies any known fevers or chills, hematemesis, melena, hematochezia. She denies history of cholecystectomy or appendectomy. - Related Data Home Medications Medication Instructions Recorded Confirmed Cholecalciferol [Vitamin D3 (25 50 mcg PO DAILY 07/05/22 07/08/23 Mcg = 1000 Iu)] SUMAtriptan succinate 100 mg PO BID PRN 12/20/22 07/08/23 Verapamil HCl [Verapamil ER] 120 mg PO DAILY 12/20/22 07/08/23 Meloxicam 7.5 mg PO DAILY 05/20/23 07/08/23 tiZANidine [Zanaflex] 4 mg PO HS 05/20/23 07/08/23 Diclofenac Sodium 50 mg PO BID 07/08/23 07/08/23 Dimethyl Fumarate 240 mg PO BID 07/08/23 07/08/23 Gabapentin 300 mg PO BID 07/08/23 07/08/23 Omeprazole 20 mg PO DAILY 07/08/23 07/08/23 Ondansetron Odt [Zofran Odt] 4 mg PO TID PRN 07/08/23 07/08/23 Propranolol [Inderal] 10 mg PO BID 07/08/23 07/08/23 Previous Rx's Medication Instructions Recorded DULoxetine HCL [Cymbalta] 60 mg PO BID 14 Days #28 cap 12/26/22 Pink Carbonate ER [Lithobid] 450 mg PO DAILY 14 Days #14 tab 12/26/22 busPIRone HCL [Buspar] 30 mg PO BID 14 Days #28 tablet 12/26/22 hydrOXYzine pamoate [hydrOXYzine 50 mg PO BID PRN 14 Days #56 cap 12/26/22 PAMOATE] traZODone HCL [Desyrel] 100 mg PO HS 14 Days #14 tab 12/26/22 Amoxic-Pot Clav 875-125Mg 1 tab PO Q12HR #20 tab 07/05/23 [Augmentin 875-125] Dicyclomine [Bentyl] 20 mg PO TID #30 tablet 07/07/23 Allergies Allergy/AdvReac Type Severity Reaction Status Date / Time vancomycin Allergy Severe Rash/Hives, Verified 07/08/23 09:22 itching, burning Review of Systems ROS Statement: Those systems with pertinent positive or pertinent negative responses have been documented in the HPI. ROS Other: All systems not noted in ROS Statement are negative. Past Medical History Past Medical History: Blood Disorder, Eye Disorder, Neurologic Disorder, Pulmonary Embolus (PE), Rheumatoid Arthritis (RA), Vascular Disorder Additional Past Medical History / Comment(s): MS, optic neuritis, PE/pt cannot recall laterallity, aortic calcification, chronic low back pain/bulging discs, possible ventral hernia, past meth abuse/clean for 28 months. EXPLOSIVE DIARRHEA History of Any Multi-Drug Resistant Organisms: MRSA Date of last positivie culture/infection: 04/09/22 MDRO Source:: Buttock Past Surgical History: Appendectomy Additional Past Surgical History / Comment(s): ectopic (2/ L fallopian tube rupture with surgery, R labia abscess/I&D Past Anesthesia/Blood Transfusion Reactions: No Reported Reaction Past Psychological History: Anxiety, Depression Smoking Status: Former smoker, Vaper Past Alcohol Use History: Rare Past Drug Use History: Marijuana - Past Family History Father Family Medical History: No Reported History Mother History Unknown: Yes General Exam - General Exam Comments Initial Comments: General: Alert, in no acute distress Head: atraumatic normocephalic. Eyes PERRL, EOMI intact, mucous membranes moist Respiratory: Lungs clear to auscultation bilaterally Cardiovascular: Rate regular rate and rhythm Abdominal: Soft without guarding or rebound, mild right upper quadrant tenderness, Bobby sign positive Extremities: Normal inspection with full range of motion and normal capillary refill Neuroogic: alert and oriented 3, CN II-XII intact, able to ambulate with steady gait Skin: warm dry and intact with normal color Limitations: no limitations Course Vital Signs 07/08/23 09:19 Temperature 97.9 F Pulse Rate 85 Respiratory 18 Rate Blood Pressure 149/95 O2 Sat by Pulse 96 Oximetry - Reevaluation(s) Reevaluation #1: 07/08/23 12:12 Pt reevaluated. Patient agreeable with the plan for admission. Reevaluation #2: 07/08/23 12:[address] Santo agrees and accepts the patient for admission Medical Decision Making - Medical Decision Making Was pt. sent in by a medical professional or institution (, [facility], [employer], urgent care, hospital, or correction...) When possible be specific @ -[No] Did you speak to anyone other than the patient for history (EMS, parent, family, police, friend...)? What history was obtained from this source @ -[No] Did you review nursing and triage notes (agree or disagree)? Why? @ -[I reviewed and agree with nursing and triage notes] Were old charts reviewed (outside hosp., previous admission, EMS record, old EKG, old radiological studies, urgent care reports/EKG's, correction records)? Report findings @ -Chart from 07/07/2023 Differential Diagnosis (chest pain, altered mental status, abdominal pain women, abdominal pain men, vaginal bleeding, weakness, fever, dyspnea, syncope, headache, dizziness, GI bleed, back pain, seizure, CVA, palpatations, mental health, musculoskeletal)? @ -[not applicable] EKG interpreted by me (3pts min.). @ -[As above] X-rays interpreted by me (1pt min.). @ -[None done] CT interpreted by me (1pt min.). @ -Yes U/S interpreted by me (1pt. min.). @ -Yes What testing was considered but not performed or refused? (CT, X-rays, U/S, labs)? Why? @ -[None] What meds were considered but not given or refused? Why? @ -[None] Did you discuss the management of the patient with other professionals (professionals i.e. , [facility], FINISHING TR[employer]MER, lab, RT, psych nurse, director social welfare, auto dismantler, teacher, correctional officer lieutenant, case assistant)? Give summary @ -[No] Was smoking cessation discussed for >3mins.? @ -[No] Was critical care preformed (if so, how long)? @ -[No] Were there social determinants of health that impacted care today? How? (Homelessness, low income, unemployed, alcoholism, drug addiction, transportation, low edu. Level, literacy, decrease access to med. care, [facility], rehab)? @ -[No] Was there de-escalation of care discussed even if they declined (Discuss DNR or withdrawal of care, Hospice)? DNR status @ -[No] What co-morbidities impacted this encounter? (DM, HTN, Smoking, COPD, CAD, Cancer, CVA, ARF, Chemo, Hep., AIDS, mental health diagnosis, sleep apnea, morbid obesity)? @ -[None] Was patient admitted / discharged? Hospital course, mention meds given and route, prescriptions, significant lab abnormalities, going to OR and other pertinent info. @ -Admission. This is a pleasant 42-year-old female who presents the emergency department with nausea and vomiting. Patient had a thorough history and physical exam performed. Vital signs are stable. Heart rate regular rate and rhythm lungs clear to auscultation bilaterally abdomen is soft with mild right upper quadrant tenderness and positive Bobby sign. Patient had laboratory studies which were comparable to 07/07/2023. Patient had CT and ultrasound imaging which did not reveal any evidence of gallstone, however there is hydrops in moderate in thickening mid to distal gastric body and antrum. Consider need for close clinical surveillance and possible endoscopy. Case is discussed with Dr. santo, [facility] who agrees and accepts the patient for admission with recommended consult to Dr. Jackson, GI. Patient was started on maintenance fluids. Case is discussed Dr. Nelson, ED attending who agrees with plan of care Undiagnosed new problem with uncertain prognosis? @ -[No] Drug Therapy requiring intensive monitoring for toxicity (Heparin, Nitro, Insulin, Cardizem)? @ -[No] Were any procedures done? @ -[No] Diagnosis/symptom? @ -Intractable nausea and vomiting Acute, or Chronic, or Acute on Chronic? @ -Acute Uncomplicated (without systemic symptoms) or Complicated (systemic symptoms)? @ Complicated Side effects of treatment? @ -[No] Exacerbation, Progression, or Severe Exacerbation? @ -[No] Poses a threat to life or bodily function? How? (Chest pain, [place], VA, pneumonia, PE, COPD, DKA, ARF, appy, cholecystitis, CVA, Diverticulitis, Homicidal, Suicidal, threat to staff... and all critical care pts) @ -Yes - Lab Data Result diagrams: 07/08/23 09:39 07/08/23 09:39 Lab Results 07/08/23 07/08/23 07/08/23 Range/Units 09:39 09:39 09:39 WBC 8.5 (3.8-10.6) k/uL RBC 5.05 (3.80-5.40) m/uL Hgb 14.3 (11.4-16.0) gm/dL Hct 43.8 (34.0-46.0) % MCV 86.7 (80.0-100.0) fL MCH 28.3 (25.0-35.0) pg MCHC 32.7 (31.0-37.0) g/dL RDW 13.9 (11.5-15.5) % Plt Count 364 (150-450) k/uL MPV 7.7 Neutrophils % 67 % Lymphocytes % 20 % Monocytes % 7 % Eosinophils % 4 % Basophils % 0 % Neutrophils # 5.7 (1.3-7.7) k/uL Lymphocytes # 1.7 (1.0-4.8) k/uL Monocytes # 0.6 (0-1.0) k/uL Eosinophils # 0.3 (0-0.7) k/uL Basophils # 0.0 (0-0.2) k/uL Sodium 137 (137-145) mmol/L Potassium 4.0 (3.5-5.1) mmol/L Chloride 101 (98-107) mmol/L Carbon Dioxide 21 L (22-30) mmol/L Anion Gap 15 mmol/L BUN 12 (7-17) mg/dL Creatinine 0.65 (0.52-1.04) mg/dL Est GFR (CKD-EPI)AfAm >90 (>60 ml/min/1.73 sqM) Est GFR (CKD-EPI)NonAf >90 (>60 ml/min/1.73 sqM) Glucose 145 H (74-99) mg/dL Calcium 9.3 (8.4-10.2) mg/dL Total Bilirubin 0.9 (0.2-1.3) mg/dL AST 51 H (14-36) U/L ALT 76 H (4-34) U/L Alkaline Phosphatase 115 (38-126) U/L Total Protein 7.5 (6.3-8.2) g/dL Albumin 4.4 (3.5-5.0) g/dL Amylase 49 (30-110) U/L Lipase 149 (23-300) U/L Urine Color Yellow Urine Appearance Clear (Clear) Urine pH 7.0 (5.0-8.0) Ur Specific [place] >1.050 H (1.001-1.035) Urine Protein Trace H (Negative) Urine Glucose (UA) Negative (Negative) Urine Ketones Trace H (Negative) Urine Blood Negative (Negative) Urine Nitrite Negative (Negative) Urine Bilirubin Negative (Negative) Urine Urobilinogen <2.0 (<2.0) mg/dL Ur Leukocyte Esterase Negative (Negative) Disposition Clinical Impression: Nausea and vomiting Disposition: ADMITTED IP TO THIS HOSP Condition: Good Time of Disposition: 12:13
--- NOTE | 2023-07-08 10:40 | CT ---
EXAMINATION TYPE: CT abdomen pelvis w con DATE OF EXAM: 07/08/2023 COMPARISON: Pelvis 02/17/2020 HISTORY: 42-year-old female N/V/D x 6 days. C/o epigastric pain. Hx tubal, appy TECHNIQUE: Contiguous axial scanning of the abdomen and pelvis following administration of 100 ml Iso joe 300 IV contrast. Delayed images through the kidneys and coronal/sagittal reconstructions perform ed. CT DLP: 1671.1 mGycm Automated exposure control for dose reduction was used. FINDINGS: LUNG BASES: No significant abnormality is appreciated. LIVER/GB: Hepatomegaly at 22.5 cm with marked diminished attenuation. There is a nodular hypervascula r focus measuring 1.3 cm of the caudate lobe suggesting a flash filling hemangioma that follows the b lood pool density. Focal fatty sparing along the anterior liver margin and along the gallbladder dane a. Gallbladder is hydropic at 4.7 cm wide but without any surrounding inflammation. No biliary ductal dilatation. Portal venous system is patent. PANCREAS: No significant abnormality is seen. SPLEEN: No significant abnormality is seen. ADRENALS: No significant abnormality is seen. KIDNEYS: Delayed excretion of contrast from the kidneys on the delayed scan. Otherwise, no Significan t abnormality is seen. BOWEL: Moderate fold thickening of the mid to distal body and antrum of the stomach. Suggestion of mi nimal adjacent mesenteric fat stranding, axial image 39. No dilated small bowel. No significant stool burden. Some chronic appearing scattered submucosal fat deposition in the colon probably at intrahep atic. LYMPH NODES: No significant abnormality is seen. OTHER: Small right median infraumbilical fat-containing hernia measuring 4.6 cm wide. Tiny fatty umbi lical hernia. PELVIS: Uterus anteverted and oblique towards the right. There is some fluid within the uterine cavit y distending up to 6 cm AP. Cystic change right ovary measuring 1.9 and 2.2 cm. Left ovary visualized . No abnormal fluid collection in the pelvis or pelvic lymphadenopathy. Right-sided tubal ligation cl ip. Left-sided clip is not seen. No abnormal fluid collection in the pelvis or pelvic lymphadenopathy . BONES: No significant abnormality is seen. IMPRESSION: 1. MODERATE FOLD THICKENING MID TO DISTAL GASTRIC BODY AND ANTRUM. SUGGESTION OF MINIMAL ADJACENT MES ENTERIC FAT STRANDING, AXIAL IMAGE 39. CORRELATE FOR UNDERLYING GASTRITIS AND/OR PEPTIC ULCER DISEASE . GIVEN THE ADJACENT FAT STRANDING, CONSIDER THE NEED FOR CLOSE CLINICAL SURVEILLANCE AND POSSIBLE EN DOSCOPY. 2. HEPATOMEGALY AT 22.5 CM WITH SEVERE HEPATIC STEATOSIS. APPROPRIATE CLINICAL MANAGEMENT IS ADVISED. 3. NO EXCRETION OF CONTRAST FROM THE KIDNEYS ON DELAYED SCAN. CORRELATE WITH BUN/CREATININE TO EXCLUD E ANN. 4. HYDROPIC GALLBLADDER MEASURING 4.7 CM WIDE LIKELY DUE TO FASTING STATE. FOLLOW-UP CLINICALLY IN DICATED. 5. A COUPLE DOMINANT FOLLICLES OR FUNCTIONAL CYSTS OF THE RIGHT OVARY MEASURING 2.2 CM AND 1.9 CM.
--- NOTE | 2023-07-08 10:57 | US ---
EXAMINATION TYPE: US gallbladder DATE OF EXAM: 07/08/2023 COMPARISON: CLINICAL INDICATION: Female, 42 years old with history of RUQ pain; RUQ pain. N/V x 3 days. Patient states she came to ER yesterday and was told she had food poisoning. TECHNIQUE: Multiple sonographic images of the right upper quadrant are obtained. FINDINGS: EXAM MEASUREMENTS: Liver Length: 23.1 cm Gallbladder Wall: 0.2 cm CBD: 0.5 cm Right Kidney: 11.7 x 5.1 x 4.1 cm Pancreas: Limited visualization Liver: Increased attenuation, decreased visualization of vessels suggestive of fatty infiltrate. Enl arged in size. Echogenic and heterogenous. Gallbladder: Appears enlarged in size = 12.1 cm with no stones or wall thickening visualized at time of scan Evidence for sonographic Bobby's sign: neg CBD: wnl Right Kidney: No hydronephrosis or masses seen IMPRESSION: Hepatomegaly with underlying hepatic steatosis. Gallbladder hydrops noted.
[2023-07-08 12:17] LABS: Appearance,Urine Clear (Clear); Bilirubin,Urine Negative (Negative); Blood,Urine Negative (Negative); Color,Urine Yellow; Glucose,Urine (UA) Negative (Negative); Ketones,Urine Trace (Negative); Leukocyte Esterase,Urine Negative (Negative); Nitrite,Urine Negative (Negative); Protein,Urine Trace (Negative); Urobilinogen,Urine <2.0 mg/dL (<2.0)
[2023-07-08 12:18] LABS: Specific Gravity,Urine >1.050 (1.001-1.035)
[2023-07-08] MEDS ORDERED: NALOXONE 0.4 MG/ML 1 ML VIAL IV PRN (12:59)
[2023-07-08] MEDS: SODIUM CHLORIDE 0.9% 1,000 ML IV SCH (14:07)
[2023-07-08] MEDS: ONDANSETRON 4 MG/2 ML VIAL IVP PRN (15:48)
[2023-07-08] MEDS: ACETAMINOPHEN TAB 325 MG TAB PO PRN (16:04)
[2023-07-08] MEDS: KETOROLAC 15 MG/ML 1 ML VIAL IVP PRN (21:15)
[2023-07-09] MEDS: SODIUM CHLORIDE 0.9% 1,000 ML IV SCH ×2 (03:58→16:53)
[2023-07-09] MEDS: ONDANSETRON 4 MG/2 ML VIAL IVP PRN ×3 (06:13→17:59)
[2023-07-09] MEDS: KETOROLAC 15 MG/ML 1 ML VIAL IVP PRN (06:17)
[2023-07-09 08:36] LABS: BUN/Creat Ratio 11.17 Ratio (12.00-20.00); Blood Urea Nitrogen 6.7 mg/dL (9.0-27.0); Calcium 9.3 mg/dL (8.7-10.3); Carbon Dioxide 20.3 mmol/L (21.6-31.8); Chloride 101 mmol/L (96-109); Glucose 115 mg/dL (70-110); Potassium 3.9 mmol/L (3.5-5.5); Sodium 135 mmol/L (135-145)
[2023-07-09 08:40] LABS: Basophils # (A) 0.01 X 10*3/uL (0.00-0.10); Basophils % (A) 0.2 %; Eosinophils # (A) 0.26 X 10*3/uL (0.04-0.35); HCT 40.2 % (37.2-46.3); Lymphocytes # (A) 1.86 X 10*3/uL (0.90-5.00); Lymphocytes % (A) 28.7 %; MCH 27.6 pg (27.0-32.0); MCHC 32.3 g/dL (32.0-37.0); MCV 85.4 FL (80.0-97.0); Mean Platelet Volume 9.9 FL (9.5-12.2); Monocytes % (A) 12.3 %; NRBC Per 100 WBC 0 X 10*3/uL (0.00-0.01); Neutrophils # (A) 3.52 X 10*3/uL (1.80-7.70); Neutrophils % (A) 54.2 %; Platelet Count 369 X 10*3/uL (140-440); RBC 4.71 X 10*6/uL (4.10-5.20); RDW 14.1 % (11.5-14.5); WBC 6.49 X 10*3/uL (4.50-10.00)
[2023-07-09] MEDS ORDERED: SUMAtriptan succinate 50 MG TAB PO PRN (09:00)
[2023-07-09] MEDS ORDERED: hydrOXYzine pamoate 25 MG CAP PO PRN (09:00)
[2023-07-09] MEDS: busPIRone HCl 10 MG TAB PO SCH ×2 (10:03→20:46)
[2023-07-09] MEDS: DICYCLOMINE 20 MG TAB PO SCH ×3 (10:04→20:45)
[2023-07-09] MEDS: VERAPAMIL SR 120 MG TABLET.ER PO SCH (10:04)
[2023-07-09] MEDS: LITHIUM CARBONATE ER 450 MG TABLET.ER PO SCH (10:04)
[2023-07-09] MEDS: PROPRANOLOL 10 MG TAB PO SCH ×2 (10:04→20:46)
[2023-07-09] MEDS: DULoxetine HCL 60 MG CAPSULE.DR PO SCH ×2 (10:04→20:45)
[2023-07-09] MEDS: GABAPENTIN 300 MG CAP PO SCH ×2 (10:06→20:45)
[2023-07-09] MEDS ORDERED: PANTOPRAZOLE 40 MG/10 ML VIAL IVP SCH (10:15)
--- NOTE | 2023-07-09 11:59 | P.GSCN ---
History of Present Illness Consult date: 07/09/23 History of present illness: CHIEF COMPLAINT: Abdominal pain HISTORY OF PRESENT ILLNESS: This is a 42-year-old female who presented with right upper quadrant abdominal pain that radiates to her shoulder and back with nausea and vomiting. Patient has been having abdominal pain for the last 1-2 weeks. She initially had an ultrasound completed outpatient with her PCP and never did receive the results. Patient was in the ER 2 days ago for possible food poisoning and was discharged home. Patient continues to have nausea and vomiting at home. Due to patient's symptoms worsening she presented to the hospital for further evaluation. Patient reports she's been having chills and sweats. Patient reports that the pain is worse after eating but she has been having vomiting even without eating. Patient had EGD and colonoscopy on 05/22/2023 with GI service results had shown mild antral gastritis. Colonoscopy was normal. Patient has been taking meloxicam at home. Patient reports no bowel movement for 2 days. But prior to that it had been diarrhea. She has p ast surgical history of appendectomy and a left fallopian tube rupture with surgery. She had a computed tomography scan abdomen and pelvis had shown moderate full thickening mid to distal gastric body and antrum. Suggest some minimal adjacent mesenteric fat stranding correlate for underlying gastritis and/or peptic ulcer disease. Hydropic gallbladder. Gallbladder ultrasound completed showing hepatomegaly with underlying hepatic steatosis. Gallbladder hydrops noted. PAST MEDICAL HISTORY: See below prior history of PE not on anticoagulation PAST SURGICAL HISTORY: See below MEDICATIONS: See below ALLERGIES: See below SOCIAL HISTORY: No illicit drug use. REVIEW OF SYSTEMS: CONSTITUTIONAL: Denies fever or chills. HEENT: Denies blurred vision, vision changes, or eye pain. Denies hemoptysis CARDIOVASCULAR: Denies chest pain or pressure. RESPIRATORY: No shortness of breath. GASTROINTESTINAL: See HPI for pertinent findings HEMATOLOGIC: Denies bleeding disorders. GENITOURINARY: Denies any blood in urine or increased urinary frequency. SKIN: Denies pruitis. Denies rash. PHYSICAL EXAM: VITAL SIGNS: Reviewed GENERAL: Well-developed in no acute distress. HEENT: No sclera icterus. Extraocular movements grossly intact. Moist buccal mucosa. Head is atraumatic, normocephalic. No nasal drainage. ABDOMEN: Soft. Nondistended. Tenderness with palpation to the right upper quadrant NEUROLOGIC: Alert and oriented. Cranial nerves II through XII grossly intact. LABORATORY DATA: WBC 6.49 Hgb 13.0 platelets 369 Sodium 135 potassium 3.9 creatinine 0.6 Total bilirubin 0.9 AST 51 ALT 76 lipase 149 IMAGING: Computed tomography scan abdomen and pelvis moderate full thickening mid to distal gastric body and antrum suggestion of minimal adjacent mesenteric fat stranding. Correlate for underlying gastritis and/or peptic ulcer disease. Hepatomegaly with severe hepatic steatosis. Hydropic gallbladder measuring 4.7 cm wide likely due to fasting state. A couple dominant follicles or functional cysts of the right ovary Gallbladder ultrasound completed showing hepatomegaly with underlying hepatic steatosis. Gallbladder hydrops noted. ASSESSMENT: 1. Right upper quadrant abdominal pain 2. Gallbladder hydrops with cholecystectomy 3. Moderate Full thickening mid to distal gastric body, suggestion of minimal adjacent mesenteric fat stranding and correlate for underlying gastritis and/or peptic ulcer disease noted on computed tomography scan 4. Hepatomegaly and hepatic steatosis PLAN: -Patient scheduled for Robotic cholecystectomy and EGD tomorrow, 07/10/[address] Nava -HIDA scan ordered for evaluation of gallbladder and right upper quadrant abdo tra pain -Start IV Protonix 40 mg twice a day -Hold NSAIDS -Ok for Clear liquid diet -Nothing by mouth after midnight Physician Stockfeed Miller note has been reviewed by physician. Signing provider agrees with the documented findings, assessment, and plan of care. CHIEF COMPLAINT: Abdominal pain HISTORY OF PRESENT ILLNESS: The patient is a 42 year old female who comes with moderate to severe right upper quadrant abdominal pain including epigastric abdominal pain after eating fatty meal. Her symptoms are ongoing for over 1-2 weeks. She was in the emergency room for nausea and vomiting 3 days ago however returns as the pain has recurred. No hematemesis. No blood in stools. She has had prior upper and lower endoscopy recent features of gastritis. General surgery is consulted regarding her abdominal pain. PAST MEDICAL HISTORY: See list and reviewed PAST SURGICAL HISTORY: See list and reviewed MEDICATIONS: See list and reviewed ALLERGIES: See list and reviewed SOCIAL HISTORY: See list and reviewed FAMILY HISTORY: See list and reviewed REVIEW OF ORGAN SYSTEMS: Obtained per chart CONSTITUTIONAL: No fevers or chills. No recent weight loss. Has morbid obesity, BMI 39.8. EYES: Has optic neuritis. HEENT: No difficulties with hearing. No nosebleeds. No difficulty swallowing. RESPIRATORY: Has pulmonary embolism. CARDIOVASCULAR: Denies any chest pain, palpitations, or recent heart attacks. GASTROINTESTINAL: Has gastroesophageal reflux disease. GENITOURINARY: Denies any blood in urine or increased urinary frequency. NEUROLOGICAL: Has multiple sclerosis. MUSCULOSKELETAL: Has back pain, stiffness or joint arthritis. Has rheumatoid arthritis. SKIN: No current skin cancer. No rash. PSYCHIATRIC: Has generalized anxiety disorder including depression. ENDOCRINE: Denies current thyroid disorders. Denies any blood sugar glucose intolerance. HEME/LYMPHATIC: Denies any lumps and bumps around the neck. No recent deep venous thrombosis. ALLERGY/IMMUNOLOGY: No immunoglobulin therapy. No immune deficiencies. BREAST: Denies current breast lumps, pain or nipple discharge. PHYSICAL EXAM: VITALS: Reviewed CONSTITUTIONAL: Well developed and in no acute distress. EYES: Conjuctivae without sclera icterus. Extraocular movements grossly intact. HEAD, EARS, NOSE, THROAT: Moist buccal mucosa. Head is atraumatic, normocephalic. Hears conversational speech. No nasal drainage. NECK: Supple. No JV distention. No thyroidomegaly. RESPIRATORY: Non-labored respirations and equal bilateral excursions. No gross wheezes. CARDIOVASCULAR: Palpable 2+ radial pulses. ABDOMEN: Obese, tender right upper quadrant. No diffuse peritonitis. LYMPH: No neck lymphadenopathy. MUSCULOSKELETAL: No clubbing cyanosis or edema SKIN: Warm and well perfused with good skin turgor. NEUROLOGIC: Cranial nerves II through XII grossly intact. No focal or lateralizing signs. PSYCH: Appropriate affect. Alert and oriented to person, place and time. Displays appropriate insight. CLINCAL LABS: Reviewed. LFTs elevated on admission. WBC normal. IMAGING: Independently reviewed. CT of the abdomen and pelvis independently reviewed demonstrates distended gallbladder. Presence of abdominal wall hernia. This is my independent interpretation. Ultrasound of gallbladder independently reviewed demonstrates distended gallbladder. No gallstones identified. This is my independent interpretation. RADIOLOGY: Report reviewed CT demonstrates findings of possible peptic ulcer disease, hepatomegaly, hydrops of the gallbladder Ultrasound of the gallbladder demonstrates hydrops. RECORDS: previous old records reviewed upper endoscopy demonstrates gastritis, colonoscopy normal. ASSESSMENT: 1. Abdominal pain, right upper quadrant 2. Hydrops cholecystitis 3. Gastritis 4. Morbid obesity due to excess calories, BMI 39.8 PLAN: 1. IV fluid hydration. 2. May benefit from upper endoscopy 3. Recommend additional studies such as nuclear scan for gallbladder dysfunction 4. Clear liquid diet in the interim ADVANCE DIRECTIVE: CODE status in chart Thank you for this kind consultation. Past Medical History Past Medical History: Blood Disorder, Eye Disorder, Neurologic Disorder, Pulmonary Embolus (PE), Rheumatoid Arthritis (RA), Vascular Disorder Additional Past Medical History / Comment(s): MS, optic neuritis, PE/pt cannot recall laterallity, aortic calcification, chronic low back pain/bulging discs, possible ventral hernia, past meth abuse/clean for 28 months. EXPLOSIVE DIARRHEA History of Any Multi-Drug Resistant Organisms: MRSA Year Discovered:: 04/09/22 MDRO Source:: Buttock Past Surgical History: Appendectomy Additional Past Surgical History / Comment(s): ectopic (2/ L fallopian tube rupture with surgery, R labia abscess/I&D Past Anesthesia/Blood Transfusion Reactions: No Reported Reaction Past Psychological History: Anxiety, Depression Additional Psychological History / Comment(s): Pt does not drive, she gets to appts by bus or her sister. She is otherwise independent. Smoking Status: Former smoker, Vaper Past Alcohol Use History: Rare Additional Past Alcohol Use History / Comment(s): Pt started smoking in 1997 , QUIT 2021. PAST DRUG ABUSE HX-CLEAN 28 MONTHS Past Drug Use History: Marijuana Additional Drug Use History / Comment(s): Pt has hx of meth addiction with rehab. She has not used meth in 28 months. USES MARIJUANA DAILY-INSTRUCTED TO REFRAIN FROM USE FOR AT LEAST 24HOURS PRIOR TO PROCEDURE - Past Family History Father Family Medical History: No Reported History Mother History Unknown: Yes Medications and Allergies Home Medications Medication Instructions Recorded Confirmed Type Cholecalciferol [Vitamin D3 (25 50 mcg PO DAILY 07/05/22 07/08/23 History Mcg = 1000 Iu)] SUMAtriptan succinate 100 mg PO BID PRN 12/20/22 07/08/23 History Verapamil HCl [Verapamil ER] 120 mg PO DAILY 12/20/22 07/08/23 History DULoxetine HCL [Cymbalta] 60 mg PO BID 14 Days #28 cap 12/26/22 07/08/23 Rx [place] Carbonate ER [Lithobid] 450 mg PO DAILY 14 Days #14 tab 12/26/22 07/08/23 Rx busPIRone HCL [Buspar] 30 mg PO BID 14 Days #28 tablet 12/26/22 07/08/23 Rx hydrOXYzine pamoate [hydrOXYzine 50 mg PO BID PRN 14 Days #56 cap 12/26/22 07/08/23 Rx PAMOATE] traZODone HCL [Desyrel] 100 mg PO HS 14 Days #14 tab 12/26/22 07/08/23 Rx Meloxicam 7.5 mg PO DAILY 05/20/23 07/08/23 History tiZANidine [Zanaflex] 4 mg PO HS 05/20/23 07/08/23 History Amoxic-Pot Clav 875-125Mg 1 tab PO Q12HR #20 tab 07/05/23 07/08/23 Rx [Augmentin 875-125] Dicyclomine [Bentyl] 20 mg PO TID #30 tablet 07/07/23 07/08/23 Rx Diclofenac Sodium 50 mg PO BID 07/08/23 07/08/23 History Dimethyl Fumarate 240 mg PO BID 07/08/23 07/08/23 History Gabapentin 300 mg PO BID 07/08/23 07/08/23 History Ondansetron Odt [Zofran ODT] 4 mg PO TID PRN 07/08/23 07/08/23 History Propranolol [Inderal] 10 mg PO BID 07/08/23 07/08/23 History Acetaminophen Tab [Tylenol Tab] 1,000 mg PO Q6HR PRN #30 tablet 07/11/23 Rx Pantoprazole Sodium [Protonix] 40 mg PO DAILY #30 tab 07/11/23 Rx Simethicone [Gas-X] 125 mg PO AC-TID PRN #20 capsule 07/11/23 Rx Allergies Allergy/AdvReac Type Severity Reaction Status Date / Time vancomycin Allergy Severe Rash/Hives, Verified 07/08/23 09:22 itching, burning Surgical - Exam Vital Signs Temp Pulse Resp BP Pulse Ox 97.9 F 85 18 149/95 96 07/08/23 09:19 07/08/23 09:19 07/08/23 09:19 07/08/23 09:19 07/08/23 09:19 Results - Labs 07/11/23 06:46 07/11/23 06:46 Abnormal Lab Results - Last 24 Hours (Table) 07/08/23 07/09/23 Range/Units 09:39 06:00 Carbon Dioxide 20.3 L (21.6-31.8) mmol/L Anion Gap 13.70 H (4.00-12.00) mmol/L BUN 6.7 L (9.0-27.0) mg/dL BUN/Creatinine Ratio 11.17 L (12.00-20.00) Ratio Glucose 115 H (70-110) mg/dL Ur Specific [place] >1.050 H (1.001-1.035) Urine Protein Trace H (Negative) Urine Ketones Trace H (Negative) Diabetes panel 07/09/23 Range/Units 06:00 Sodium 135 (135-145) mmol/L Potassium 3.9 (3.5-5.5) mmol/L Chloride 101 (96-109) mmol/L Carbon Dioxide 20.3 L (21.6-31.8) mmol/L BUN 6.7 L (9.0-27.0) mg/dL Creatinine 0.6 (0.6-1.5) mg/dL Glucose 115 H (70-110) mg/dL Calcium 9.3 (8.7-10.3) mg/dL Calcium panel 07/09/23 Range/Units 06:00 Calcium 9.3 (8.7-10.3) mg/dL Pituitary panel 07/09/23 Range/Units 06:00 Sodium 135 (135-145) mmol/L Potassium 3.9 (3.5-5.5) mmol/L Chloride 101 (96-109) mmol/L Carbon Dioxide 20.3 L (21.6-31.8) mmol/L BUN 6.7 L (9.0-27.0) mg/dL Creatinine 0.6 (0.6-1.5) mg/dL Glucose 115 H (70-110) mg/dL Calcium 9.3 (8.7-10.3) mg/dL Adrenal panel 07/09/23 Range/Units 06:00 Sodium 135 (135-145) mmol/L Potassium 3.9 (3.5-5.5) mmol/L Chloride 101 (96-109) mmol/L Carbon Dioxide 20.3 L (21.6-31.8) mmol/L BUN 6.7 L (9.0-27.0) mg/dL Creatinine 0.6 (0.6-1.5) mg/dL Glucose 115 H (70-110) mg/dL Calcium 9.3 (8.7-10.3) mg/dL
--- NOTE | 2023-07-09 13:11 | NM ---
EXAMINATION TYPE: NM hepatobiliary w CCK DATE OF EXAM: 07/09/2023 1:06 PM COMPARISON: Ultrasound 07/08/2023. CLINICAL INDICATION:Female, 42 years old with history of RUQ abdominal pain; TECHNIQUE: The patient was given 5.2 mCi of Technetium 99m-Mebrofenin as a radiotracer and multiple scintigraphic images were obtained of the abdomen. Gallbladder function was also assessed after the a dministration of ensure drink and additional scintigraphic images were obtained of the abdomen. A reg ion of interest was drawn over the gallbladder and a timing activity curve was generated. The gallbla dder ejection fraction was calculated. FINDINGS: Incomplete evaluation of the liver and gallbladder due to patient having to get off the table. Maximum calculated gallbladder ejection fraction is: 17% at 30 minutes (Normal gallbladder ejection fraction is > 35%) IMPRESSION: Incomplete examination patient secondary to patient having to vomit. Findings compatible with impaire d gallbladder emptying and gallbladder dysfunction
--- NOTE | 2023-07-09 14:16 | P.HPIM ---
History of Present Illness H&P Date: 07/09/23 History of present illness; patient is a 42-year-old lady with past medical hist ory significant for hypertension, MS who presented to the hospital because of nausea vomiting abdominal pain. Patient has been dealing with this issue for the last 1-2 weeks. Patient had recent EGD and colonoscopy done with GI that showed antral gastritis. Patient states her last 1-2 weeks she has been having right upper quadrant abdominal pain that is intermittent, brought on by eating. Patient was also having nausea and vomiting. Patient unable to keep anything down after eating. Denies any fever or chills. Patient was having altered bowel movements with initially diarrhea but for the last 2 days patient has not had bowel movement.. Because the symptoms, patient came to the ER Initial lab work done in the ER showed a PVC 8.5, hemoglobin 14.3, platelet count 364, sodium 137, potassium 4, BUN 12, creatinine 0.65, AST 51, AST 76, lipase 149 UA negative for any infection CT abdominal and pelvis done showed moderate thickening of the mid to distal gastric body and antrum. Hepatomegaly with hepatic steatosis. Hydropic gallbladder Abdominal ultrasound done showed hepatomegaly with underlying hepatic steatosis Patient admitted to internal medicine service REVIEW OF SYSTEMS: CONSTITUTIONAL: As mentioned in HPI HEENT: No recent visual problems or hearing problems. Denied any sore throat. CARDIOVASCULAR: No chest pain, orthopnea, PND, no palpitations, no syncope. PULMONARY: No shortness of breath, no cough, no hemoptysis. GASTROINTESTINAL: As mentioned in HPI NEUROLOGICAL: No headaches, no weakness, no numbness. HEMATOLOGICAL: Denies any bleeding or petechiae. GENITOURINARY: Denies any burning micturition, frequency, or urgency. MUSCULOSKELETAL/RHEUMATOLOGICAL: Denies any joint pain, swelling, or any muscle pain. ENDOCRINE: Denies any polyuria or polydipsia. The rest of the 14-point review of systems is negative. PHYSICAL EXAMINATION: GENERAL: The patient is alert and oriented x3, not in any acute distress. Well developed, well nourished. HEENT: Pupils are round and equally reacting to light. EOMI. No scleral icterus. No conjunctival pallor. Normocephalic, atraumatic. No pharyngeal erythema. No thyromegaly. CARDIOVASCULAR: S1 and S2 present. No murmurs, rubs, or gallops. PULMONARY: Chest is clear to auscultation, no wheezing or crackles. ABDOMEN: Tenderness right upper quadrant, normoactive bowel sounds. No palpable organomegaly. MUSCULOSKELETAL: No joint swelling or deformity. EXTREMITIES: No cyanosis, clubbing, or pedal edema. NEUROLOGICAL: Gross neurological examination did not reveal any focal deficits. SKIN: No rashes. Assessment and plan Acute right upper quadrant abdominal pain Nausea and vomiting Hypertension MS History of a pulmonary embolism Tobacco use and dependence Monitor vital signs Monitor CBC Monitor CMP Continue pain control Continue IV fluid Continue antiemetics Ordered HIDA scan Gen. surgery consulted GI consulted Labs and medication were reviewed.. Continue same treatment. Continue with symptomatic treatment. Resume home medication. Monitor labs and vitals. DVT and GI prophylaxis. Further recommendations as per clinical course of the patient Dictation was produced using [employer] dictation software. please excuse any grammatical, word or spelling errors. Past Medical History Past Medical History: Blood Disorder, Eye Disorder, Neurologic Disorder, Pulmonary Embolus (PE), Rheumatoid Arthritis (RA), Vascular Disorder Additional Past Medical History / Comment(s): MS, optic neuritis, PE/pt cannot recall laterallity, aortic calcification, chronic low back pain/bulging discs, possible ventral hernia, past meth abuse/clean for 28 months. EXPLOSIVE DIARRHEA History of Any Multi-Drug Resistant Organisms: MRSA Date of last positivie culture/infection: 04/09/22 MDRO Source:: Buttock Past Surgical History: Appendectomy Additional Past Surgical History / Comment(s): ectopic (2/ L fallopian tube rupture with surgery, R labia abscess/I&D Past Anesthesia/Blood Transfusion Reactions: No Reported Reaction Past Psychological History: Anxiety, Depression Additional Psychological History / Comment(s): Pt does not drive, she gets to [employer] by bus or her sister. She is otherwise independent. Smoking Status: Former smoker, Vaper Past Alcohol Use History: Rare Additional Past Alcohol Use History / Comment(s): Pt started smoking in 1997 , QUIT 2021. PAST DRUG ABUSE HX-CLEAN 28 MONTHS Past Drug Use History: Marijuana Additional Drug Use History / Comment(s): Pt has hx of meth addiction with rehab. She has not used meth in 28 months. USES MARIJUANA DAILY-INSTRUCTED TO REFRAIN FROM USE FOR AT LEAST 24HOURS PRIOR TO PROCEDURE - Past Family History Father Family Medical History: No Reported History Mother History Unknown: Yes Medications and Allergies Home Medications Medication Instructions Recorded Confirmed Type Cholecalciferol [Vitamin D3 (25 50 mcg PO DAILY 07/05/22 07/08/23 History Mcg = 1000 Iu)] SUMAtriptan succinate 100 mg PO BID PRN 12/20/22 07/08/23 History Verapamil HCl [Verapamil ER] 120 mg PO DAILY 12/20/22 07/08/23 History DULoxetine HCL [Cymbalta] 60 mg PO BID 14 Days #28 cap 12/26/22 07/08/23 Rx [place] Carbonate ER [Lithobid] 450 mg PO DAILY 14 Days #14 tab 12/26/22 07/08/23 Rx busPIRone HCL [Buspar] 30 mg PO BID 14 Days #28 tablet 12/26/22 07/08/23 Rx hydrOXYzine pamoate [hydrOXYzine 50 mg PO BID PRN 14 Days #56 cap 12/26/22 07/08/23 Rx PAMOATE] traZODone HCL [Desyrel] 100 mg PO HS 14 Days #14 tab 12/26/22 07/08/23 Rx Meloxicam 7.5 mg PO DAILY 05/20/23 07/08/23 History tiZANidine [Zanaflex] 4 mg PO HS 05/20/23 07/08/23 History Amoxic-Pot Clav 875-125Mg 1 tab PO Q12HR #20 tab 07/05/23 07/08/23 Rx [Augmentin 875-125] Dicyclomine [Bentyl] 20 mg PO TID #30 tablet 07/07/23 07/08/23 Rx Diclofenac Sodium 50 mg PO BID 07/08/23 07/08/23 History Dimethyl Fumarate 240 mg PO BID 07/08/23 07/08/23 History Gabapentin 300 mg PO BID 07/08/23 07/08/23 History Omeprazole 20 mg PO DAILY 07/08/23 07/08/23 History Ondansetron Odt [Zofran Odt] 4 mg PO TID PRN 07/08/23 07/08/23 History Propranolol [Inderal] 10 mg PO BID 07/08/23 07/08/23 History Allergies Allergy/AdvReac Type Severity Reaction Status Date / Time vancomycin Allergy Severe Rash/Hives, Verified 07/08/23 09:22 itching, burning Physical Exam Vitals: Vital Signs Temp Pulse Pulse Resp BP BP Pulse Ox 07/09/23 07:00 97.8 F 89 16 123/78 98 07/09/23 01:39 98.4 F 96 15 108/71 97 07/08/23 20:00 16 07/08/23 19:39 98.9 F 104 H 16 144/57 95 07/08/23 16:34 99.1 F 99 16 138/85 96 07/08/23 16:24 100.1 F H 98 18 120/90 99 Intake and Output 07/08/23 07/09/23 07/09/23 22:59 06:59 14:59 Intake Total 240 Balance 240 Intake: Oral 240 Other: # Voids 1 1 Weight 105.233 kg Results CBC & Chem 7: 07/09/23 06:00 07/09/23 06:00 Labs: Abnormal Lab Results - Last 24 Hours (Table) 07/09/23 Range/Units 06:00 Carbon Dioxide 20.3 L (21.6-31.8) mmol/L Anion Gap 13.70 H (4.00-12.00) mmol/L BUN 6.7 L (9.0-27.0) mg/dL BUN/Creatinine Ratio 11.17 L (12.00-20.00) Ratio Glucose 115 H (70-110) mg/dL Thrombosis Risk Factor Assmnt - Choose All That Apply Each Risk Factor Represents 3 Points: History of DVT/PE Thrombosis Risk Factor Assessment Total Risk Factor Score: 3 Thrombosis Risk Factor Assessment Level: Moderate Risk
--- NOTE | 2023-07-09 16:53 | P.CONS ---
History of Present Illness - Reason for Consult Consult date: 07/09/23 Nausea and vomiting Requesting physician: Jamee Flynn - Chief Complaint Nausea and vomiting, right upper quadrant pain - History of Present Illness This is a 42-year-old white female who presented to the emergency department with complaints of nausea vomiting and not right upper quadrant pain. Patient has had persistent ongoing nausea and vomiting this is been going on for several months however states that his recurred over the last 4 days duration. Patient was concerned that she possibly had food poisoning related to eating cantaloupe that was contaminated. However this patient also has a history of this nausea and vomiting and had seen Dr. Jackson in the past and had a recent EGD and colonoscopy done on 05/22/2023. EGD showed mild antral gastritis with no evidence of peptic ulcer disease or esophagitis. Colonoscopy was normal. Patient had a CT of the abdomen and pelvis that had reported moderate fold thickening mid to distal gastric body and antrum suggestive of minimal adjacent mesenteric fat stranding correlate for underlying gastritis and/or peptic ulcer disease. Patient also noted with hepatomegaly which she states is known and is being monitored by gastroenterology. She is states she vomited this morning after having some chicken broth. States abdominal pain has improved some. soap drier tender in that right upper quadrant area. She denies any coffee-ground emesis or breanna red blood. Admitting labs WBC 8.5 hemoglobin 14.3 platelet count 364,000 total bilirubin 0.9 AST 51 ALT 76 alkaline phosphatase 115 amylase 49 lipase 149 Review of Systems REVIEW OF SYSTEMS: CARDIOPULMONARY: No chest pain, shortness of breath. Gastrointestinal: Right upper quadrant pain. Nausea and vomiting. No hematemesis, coffee-ground emesis. No rectal bleeding, or melena. GENITOURINARY: No dysuria or hematuria. MUSCULOSKELETAL: Reports normal range of motion. SKIN: No rashes. No jaundice. ENDOCRINE: No chills, fevers. No excessive weight gain or loss. No polydipsia or polyuria. PSYCHIATRIC: Unremarkable. NEUROLOGY: No change in mental status. Denies dizziness, headache. ENT: Vision unremarkable. CONSTITUTIONAL: No recent weight loss. No fever, chills, night sweats. Past Medical History Past Medical History: Blood Disorder, Eye Disorder, Neurologic Disorder, Pulmonary Embolus (PE), Rheumatoid Arthritis (RA), Vascular Disorder Additional Past Medical History / Comment(s): MS, optic neuritis, PE/pt cannot recall laterallity, aortic calcification, chronic low back pain/bulging discs, possible ventral hernia, past meth abuse/clean for 28 months. EXPLOSIVE DIARRHEA History of Any Multi-Drug Resistant Organisms: MRSA Year Discovered:: 04/09/22 MDRO Source:: Buttock Past Surgical History: Appendectomy Additional Past Surgical History / Comment(s): ectopic (2/ L fallopian tube rupture with surgery, R labia abscess/I&D Past Anesthesia/Blood Transfusion Reactions: No Reported Reaction Past Psychological History: Anxiety, Depression Additional Psychological History / Comment(s): Pt does not drive, she gets to app by bus or her sister. She is otherwise independent. Smoking Status: Former smoker, Vaper Past Alcohol Use History: Rare Additional Past Alcohol Use History / Comment(s): Pt started smoking in 1997 , QUIT 2021. PAST DRUG ABUSE HX-CLEAN 28 MONTHS Past Drug Use History: Marijuana Additional Drug Use History / Comment(s): Pt has hx of meth addiction with rehab. She has not used meth in 28 months. USES MARIJUANA DAILY-INSTRUCTED TO REFRAIN FROM USE FOR AT LEAST 24HOURS PRIOR TO PROCEDURE - Past Family History Father Family Medical History: No Reported History Mother History Unknown: Yes Medications and Allergies Home Medications Medication Instructions Recorded Confirmed Type Cholecalciferol [Vitamin D3 (25 50 mcg PO DAILY 07/05/22 07/08/23 History Mcg = 1000 Iu)] SUMAtriptan succinate 100 mg PO BID PRN 12/20/22 07/08/23 History Verapamil HCl [Verapamil ER] 120 mg PO DAILY 12/20/22 07/08/23 History DULoxetine HCL [Cymbalta] 60 mg PO BID 14 Days #28 cap 12/26/22 07/08/23 Rx [place] Carbonate ER [Lithobid] 450 mg PO DAILY 14 Days #14 tab 12/26/22 07/08/23 Rx busPIRone HCL [Buspar] 30 mg PO BID 14 Days #28 tablet 12/26/22 07/08/23 Rx hydrOXYzine pamoate [hydrOXYzine 50 mg PO BID PRN 14 Days #56 cap 12/26/22 07/08/23 Rx PAMOATE] traZODone HCL [Desyrel] 100 mg PO HS 14 Days #14 tab 12/26/22 07/08/23 Rx Meloxicam 7.5 mg PO DAILY 05/20/23 07/08/23 History tiZANidine [Zanaflex] 4 mg PO HS 05/20/23 07/08/23 History Amoxic-Pot Clav 875-125Mg 1 tab PO Q12HR #20 tab 07/05/23 07/08/23 Rx [Augmentin 875-125] Dicyclomine [Bentyl] 20 mg PO TID #30 tablet 07/07/23 07/08/23 Rx Diclofenac Sodium 50 mg PO BID 07/08/23 07/08/23 History Dimethyl Fumarate 240 mg PO BID 07/08/23 07/08/23 History Gabapentin 300 mg PO BID 07/08/23 07/08/23 History Omeprazole 20 mg PO DAILY 07/08/23 07/08/23 History Ondansetron Odt [Zofran Odt] 4 mg PO TID PRN 07/08/23 07/08/23 History Propranolol [Inderal] 10 mg PO BID 07/08/23 07/08/23 History Allergies Allergy/AdvReac Type Severity Reaction Status Date / Time vancomycin Allergy Severe Rash/Hives, Verified 07/08/23 09:22 itching, burning Physical Exam Vitals: Vital Signs Temp Pulse Pulse Resp BP BP Pulse Ox 07/09/23 07:00 97.8 F 89 16 123/78 98 07/09/23 01:39 98.4 F 96 15 108/71 97 07/08/23 20:00 16 07/08/23 19:39 98.9 F 104 H 16 144/57 95 07/08/23 16:34 99.1 F 99 16 138/85 96 07/08/23 16:24 100.1 F H 98 18 120/90 99 Intake and Output 07/08/23 07/09/23 07/09/23 22:59 06:59 14:59 Intake Total 240 Balance 240 Intake: Oral 240 Other: # Voids 1 1 Weight 105.233 kg General appearance: The patient is alert, oriented, appears in no acute distress. HET: Head is normocephalic and atraumatic. Conjunctiva pink. Sclera anicteric. Neck: Supple without lymphadenopathy. Trachea midline. Heart: Regular. Lungs: Equal expansion, normal respiratory effort. Abdomen: Soft, right upper quadrant tenderness, nondistended. No guarding or rigidity. Skin: No rashes. No jaundice. Extremities: Normal skin color and turgor. No pedal edema. Neurological: No focal deficits. Alert and oriented x3. Results CBC & Chem 7: 07/09/23 06:00 07/09/23 06:00 Labs: Abnormal Lab Results - Last 24 Hours (Table) 07/08/23 07/09/23 Range/Units 09:39 06:00 Carbon Dioxide 20.3 L (21.6-31.8) mmol/L Anion Gap 13.70 H (4.00-12.00) mmol/L BUN 6.7 L (9.0-27.0) mg/dL BUN/Creatinine Ratio 11.17 L (12.00-20.00) Ratio Glucose 115 H (70-110) mg/dL Ur Specific [place] >1.050 H (1.001-1.035) Urine Protein Trace H (Negative) Urine Ketones Trace H (Negative) Assessment and Plan (1) Nausea and vomiting Narrative/Plan: 2-year-old female presenting for nausea and vomiting and right upper quadrant tenderness. Patient has had this nausea and vomiting for several months and has had a recent EGD and colonoscopy done on 05/22/2023 with only mildly atrophic gastritis to be found no peptic ulcer disease disease or esophagitis. Unclear etiology of nausea and vomiting, patient is having right upper quadrant pain and gallbladder is being evaluated. Patient is scheduled to undergo EGD and cholecystectomy with general surgery. Continue to recommend antiemetics and Protonix 40 mg twice a day. Current Visit: Yes Status: Acute Code(s): R11.2 - NAUSEA WITH VOMITING, UNSPECIFIED SNOMED Code(s): 12015592 (2) Right upper quadrant abdominal tenderness Narrative/Plan: Patient underwent HIDA scan that was incomplete examination due to patient vomiting however findings were compatible with impaired gallbladder emptying and gallbladder dysfunction. Patient scheduled for cholecystectomy with Dr. Nava Current Visit: Yes Status: Acute Code(s): R10.811 - RIGHT UPPER QUADRANT ABDOMINAL TENDERNESS SNOMED Code(s): 587437016 Plan: 1. Continue symptomatic and supportive care 2. Antiemetics as needed 3. Protonix 40 mg twice a day 4. No plans on endoscopic evaluation, patient had recent EGD and colonoscopy on 05/22/2023 5. Diet as tolerated 6. Continue with recommendations from general surgery Thank you for this consultation, we will sign off at this time. Dr. Fallon Jackson I agree with the dictator's note, documented as a scribe by Kait Ramon.
[2023-07-09] MEDS: ACETAMINOPHEN TAB 325 MG TAB PO PRN (17:59)
[2023-07-09] MEDS: tiZANidine 4 MG TAB PO SCH (20:45)
[2023-07-09] MEDS: PANTOPRAZOLE 40 MG/10 ML VIAL IVP SCH (20:45)
[2023-07-10] MEDS: SODIUM CHLORIDE 0.9% 1,000 ML IV SCH ×2 (02:40→20:49)
[2023-07-10 06:47] LABS: ALT 54 U/L (4-34); AST 33 U/L (14-36); African American GFR (CKD) >90 (>60 ml/min/1.73 sqM); Albumin 3.9 g/dL (3.5-5.0); Albumin/Globulin Ratio 1.4; Alkaline Phosphatase 119 U/L (38-126); Anion Gap 13 mmol/L; Blood Urea Nitrogen 6 mg/dL (7-17); Carbon Dioxide 19 mmol/L (22-30); Chloride 103 mmol/L (98-107); Globulin 2.7 g/dL; Glucose 112 mg/dL (74-99); Non-African American GFR(CKD) >90 (>60 ml/min/1.73 sqM); Potassium 3.9 mmol/L (3.5-5.1); Sodium 135 mmol/L (137-145); Total Bilirubin 0.6 mg/dL (0.2-1.3); Total Protein 6.6 g/dL (6.3-8.2)
[2023-07-10 07:00] LABS: Basophils % (A) 0 %; Eosinophils # (A) 0.4 k/uL (0-0.7); Eosinophils % (A) 4 %; HCT 39.9 % (34.0-46.0); HGB 12.9 gm/dL (11.4-16.0); Lymphocytes # (A) 1.4 k/uL (1.0-4.8); Lymphocytes % (A) 17 %; MCH 27.8 pg (25.0-35.0); MCHC 32.2 g/dL (31.0-37.0); MCV 86.1 fL (80.0-100.0); Mean Platelet Volume 8.3; Monocytes # (A) 0.6 k/uL (0-1.0); Monocytes % (A) 7 %; Neutrophils # (A) 5.8 k/uL (1.3-7.7); Neutrophils % (A) 69 %; Platelet Count 312 k/uL (150-450); RBC 4.64 m/uL (3.80-5.40); WBC 8.4 k/uL (3.8-10.6)
[2023-07-10] MEDS: busPIRone HCl 10 MG TAB PO SCH ×3 (09:29→20:51)
[2023-07-10] MEDS: VERAPAMIL SR 120 MG TABLET.ER PO SCH (09:30)
[2023-07-10] MEDS: GABAPENTIN 300 MG CAP PO SCH ×3 (09:30→20:51)
[2023-07-10] MEDS: DICYCLOMINE 20 MG TAB PO SCH ×3 (09:30→20:51)
[2023-07-10] MEDS: LITHIUM CARBONATE ER 450 MG TABLET.ER PO SCH ×2 (09:30→12:19)
[2023-07-10] MEDS: PANTOPRAZOLE 40 MG/10 ML VIAL IVP SCH ×3 (09:30→20:51)
[2023-07-10] MEDS: PROPRANOLOL 10 MG TAB PO SCH ×3 (09:30→20:51)
[2023-07-10] MEDS: DULoxetine HCL 60 MG CAPSULE.DR PO SCH ×3 (09:30→20:51)
--- NOTE | 2023-07-10 13:22 | P.PN ---
Subjective Progress Note Date: 07/10/23 patient is a 42-year-old lady with past medical history significant for hypertension, MS who presented to the hospital because of nausea vomiting abdominal pain. Patient has been dealing with this issue for the last 1-2 weeks. Patient had recent EGD and colonoscopy done with GI that showed antral gastritis. Patient states her last 1-2 weeks she has been having right upper quadrant abdominal pain that is intermittent, brought on by eating. Patient was also having nausea and vomiting. Patient unable to keep anything down after eating. Denies any fever or chills. Patient was having altered bowel movements with initially diarrhea but for the last 2 days patient has not had bowel movement.. Because the symptoms, patient came to the ER Initial lab work done in the ER showed a PVC 8.5, hemoglobin 14.3, platelet count 364, sodium 137, potassium 4, BUN 12, creatinine 0.65, AST 51, AST 76, lipase 149 UA negative for any infection CT abdominal and pelvis done showed moderate thickening of the mid to distal gastric body and antrum. Hepatomegaly with hepatic steatosis. Hydropic gallbladder Abdominal ultrasound done showed hepatomegaly with underlying hepatic steatosis Patient admitted to internal medicine service 07/10. Patient seen and examined. Still having right upper quadrant pain. Currently nothing by mouth scheduled for surgery today REVIEW OF SYSTEMS: CONSTITUTIONAL: No fever, no malaise,. CARDIOVASCULAR: No chest pain, no palpitations, no syncope. PULMONARY: No shortness of breath, no cough, GASTROINTESTINAL: No diarrhea, no nausea, no vomiting, NEUROLOGICAL: No headaches, no weakness, PHYSICAL EXAMINATION: GENERAL: The patient is alert and oriented x3, not in any acute distress. Well developed, well nourished. HEENT: Pupils are round and equally reacting to light. EOMI. No scleral icterus. No conjunctival pallor. Normocephalic, atraumatic. No pharyngeal erythema. No thyromegaly. CARDIOVASCULAR: S1 and S2 present. No murmurs, rubs, or gallops. PULMONARY: Chest is clear to auscultation, no wheezing or crackles. ABDOMEN: Distended, tenderness right upper quadrant, normoactive bowel sounds. No palpable organomegaly. MUSCULOSKELETAL: No joint swelling or deformity. EXTREMITIES: No cyanosis, clubbing, or pedal edema. NEUROLOGICAL: Gross neurological examination did not reveal any focal deficits. SKIN: No rashes. Assessment and plan Gallbladder hydrops Acute right upper quadrant abdominal pain Nausea and vomiting Hypertension MS History of a pulmonary embolism Tobacco use and dependence Monitor vital signs Monitor CBC Monitor CMP Continue pain management Continue IV fluids Continue antiemetics Currently nothing by mouth, scheduled for Robotic cholecystectomy and EGD today Labs and medication were reviewed.. Continue same treatment. Continue with symptomatic treatment. Resume home medication. Monitor labs and vitals. DVT and GI prophylaxis. Further recommendations as per clinical course of the patient Dictation was produced using [employer] dictation software. please excuse any grammatical, word or spelling errors. Objective - Vital Signs Vital signs: Vital Signs Temp 98.6 F 07/10/23 07:00 Pulse 90 07/10/23 07:00 Resp 20 07/10/23 07:00 BP 142/79 07/10/23 07:00 Pulse Ox 99 07/10/23 07:00 FiO2 Intake & Output 07/09/23 07/10/23 07/10/23 18:59 06:59 18:59 Intake Total 118 Balance 118 Intake: Oral 118 Other: # Voids 2 1 # Bowel Movements 1 - Labs CBC & Chem 7: 07/10/23 05:53 07/10/23 05:53 Labs: Abnormal Lab Results - Last 24 Hours (Table) 07/10/23 Range/Units 05:53 Sodium 135 L (137-145) mmol/L Carbon Dioxide 19 L (22-30) mmol/L BUN 6 L (7-17) mg/dL Glucose 112 H (74-99) mg/dL ALT 54 H (4-34) U/L
[2023-07-10 15:05] VITALS: RESP 16
[2023-07-10] MEDS ORDERED: INDOCYANINE GREEN 25 MG VIAL IV STA (15:59)
[2023-07-10] MEDS ORDERED: HEPARIN SODIUM,PORCINE 5,000 UNIT/ML 1 ML VIAL SQ STA (15:59)
[2023-07-10] MEDS ORDERED: GLYCOPYRROLATE 0.2 MG/ML 2 ML VIAL ONE (17:46)
[2023-07-10] MEDS ORDERED: MIDAZOLAM 2 MG/2 ML VIAL ONE (17:46)
[2023-07-10] MEDS ORDERED: NEOSTIGMINE 1 MG/ML 10 ML VIAL ONE (17:46)
[2023-07-10] MEDS ORDERED: SUCCINYLCHOLINE CHLORIDE 200 MG/10 ML VIAL IV ONE (17:46)
[2023-07-10] MEDS ORDERED: LIDOCAINE 1% INJ 10MG/ML (20 ML MDV) ONE (17:46)
[2023-07-10] MEDS ORDERED: HYDROmorphone (PF) 1 MG/ML ONE (17:46)
[2023-07-10] MEDS ORDERED: ROCURONIUM 10 MG/ML (5 ML VIAL) IV ONE (17:46)
[2023-07-10] MEDS ORDERED: PROPOFOL 10 MG/ML 20 ML VIAL IV ONE (17:46)
[2023-07-10] MEDS ORDERED: fentaNYL (PF) 50 MCG/ML 2 ML AMP ONE (17:46)
[2023-07-10] MEDS ORDERED: IV FLUID CONTINUATION 1,000 ML IV ONE (17:50)
[2023-07-10] MEDS ORDERED: BUPIVACAINE (PF) 0.25% 30 ML VIAL SQ ONE (18:45)
[2023-07-10] MEDS ORDERED: LACTATED RINGERS 1,000 ML IV ONE (18:57)
--- NOTE | 2023-07-10 19:22 | P.OP ---
Date of Procedure: 07/10/23 Description of Procedure: SURGEON: RHONDA FONTAINE MD PREOPERATIVE DIAGNOSES: 1. Acute cholecystitis with right upper quadrant abdominal pain 2. Morbid obesity due to excess calories, BMI 39.8 3. Abnormal computed tomography scan for gastritis/gastric ulcers 4. Rheumatoid arthritis 5. Depressive disorder 6. Multiple sclerosis 7. History of pulmonary embolism POSTOPERATIVE DIAGNOSES: 1. Acute cholecystitis with right upper quadrant abdominal pain 2. Morbid obesity due to excess calories, BMI 39.8 3. Abnormal computed tomography scan for gastritis/gastric ulcers 4. Rheumatoid arthritis 5. Depressive disorder 6. Multiple sclerosis 7. History of pulmonary embolismDuodenitis 8. Gastritis 9. Hepatomegaly with fatty liver disease and cirrhosis 10. Hydrops cholecystitis OPERATION: 1. Robotic-assisted da Nava Xi laparoscopic cholecystectomy, multiport with FIREFLY 2. Intraoperative upper endoscopy (see separate operative report) ESTIMATED BLOOD LOSS: 20 mL. SPECIMENS REMOVED: Gallbladder. COMPLICATIONS: None. OPERATIVE FINDINGS: 1. Acute cholecystitis with hydrops and distended gallbladder 2. Severe hepatomegaly and fatty liver disease with findings of macronodular liver cirrhosis 3. Common bile duct within normal limits, without dilation INDICATIONS: The patient is a 42 year-old female who presents with epigastric right upper quadrant pain, including abnormal computed tomography scan hydrops gallbladder. Clinical exam consistent with cholecystitis. Surgical intervention with cholecystectomy was described. Robotic assisted laparoscopic approach was described. Benefits and risks of the procedure including but not limited to bleeding, infection, injury to the biliary tree was reviewed. Informed consent was obtained. DESCRIPTION OF PROCEDURE: Patient was brought to the operating room, placed in supine position. After general induction, the abdomen had been prepped and draped in standard sterile fashion. The robotic da Nava XI system was primed. After a timeout protocol was performed, the patient had been prepped and draped in standard sterile fashion. The patient was injected with indocyanine green. A 5 mm 0 degrees laparoscopic trocar entry was performed along the left upper quadrant. The abdomen insufflated to 15 mmHg pressure which was tolerated well. Diagnostic laparoscopy demonstrated no injury to bowel viscera or mesentery. The liver surface had multiple fatty liver deposits included hepatomegaly and ea rly macronodular liver cirrhosis. A moderately distended gallbladder was identified adding complexity to the case. Next, two 8 mm robotic ports were placed along the right upper abdomen. The camera 8-mm port was maintained along the epigastrium. Another 8 mm port was placed along the left upper abdominal wall after exchanging the 5 mm port. Please note that the ports were placed at least 10 to 15 cm away from the target anatomy of the gallbladder. The robot was docked along the left lateral abdomen. The patient was repositioned in reverse Trendelenburg position with the right side up. Using a grasper for arm 3, a grasper for arm 4, including hook cautery for arm 1, the robotic system was docked and primed as described. Instruments were interchanged by the fiscal assistant including hook cautery, Bovie cautery and clip appliers. I had sat at the console. The gallbladder was reflected towards the dome of the liver. The gallbladder was moderately distended adding complexity to the case. Moderate edema was found along the cystic triangle including infundibulum. Initial dissection was performed on the gallbladder infundibulum using indocyanine green to illuminate the cystic duct and common bile duct. Due to moderate distention of the infundibulum, dome down technique was performed removing the gallbladder from the hepatic fossa starting from the fundus towards the infundibulum. Using a sponge, the liver was reflected towards the diaphragm and starting at the gallbladder fundus, hook cautery was used to find the avascular plane between the liver and the gallbladder. As the gallbladder was dissected from the hepatic fossa, hemostasis was checked using vessel sealer along the posterior gallbladder. Next, indocyanine green was used to confirm the common bile duct as well as cystic duct. The cystic duct was short and dissection was performed at the junction of the cystic duct and infundibulum. The infundibulum was retracted laterally to expose the cystic duct away from the common bile duct. The cystic duct was dissected free from its surrounding tissue. FIREFLY was used to identify the cystic structures. A critical view of safety was obtained. Large PLASTIC clips were used throughout the entire case. Using a clip comic artist, a clip was placed at the junction of the infundibulum and cystic duct. The cystic duct was divided using vessel sealer. Next, the cystic artery was divided using vessel sealer. Electro-Bovie cautery and vessel sealer was used to remove the gallbladder without decompression. Hemostasis was checked and found to be adequate. The robot was undocked. I re-scrubbed into the case. A 10 mm Endo Catch bag was used to remove the gallbladder in total via the left upper quadrant incision after widening the incision. The specimen was removed from the abdominal cavity. Fahad Guerrier and 0 Vicryl was used to close the fascial defect of the left upper quadrant. All pneumoperitoneum instruments were evacuated from the abdominal cavity. The incisions were cleansed using dilute hydrogen peroxide. The incisions were reapproximated using 4-0 Monocryl in an interrupted subcuticular fashion. Please note along the trocar sites, local anesthetic was placed as a field block prior to insertion of all instruments. Liquid glue was applied to the skin. I went to the head of the bed to perform intraoperative upper endoscopy due to features of abnormal findings of gastritis possible gastric ulcer. Please see separate operative report. At the end of the procedure needle, sponge, and instrument count had been verified correct by the certified surgical assistant. The patient was transferred to postanesthesia care unit in stable condition. Intraoperative films were shared with the patient's family.
[2023-07-10] MEDS ORDERED: HYDROmorphone 0.5 MG/0.5 ML SYRINGE IVP ONE ×3 (19:36→20:05)
[2023-07-10] MEDS ORDERED: diphenhydrAMINE 50 MG/ML 1 ML VIAL IVP ONE (19:44)
[2023-07-10] MEDS ORDERED: ACETAMINOPHEN IV (For NPO) 1,000 MG in EMPTY BAG 1 BAG IVPB ONE (20:00)
[2023-07-10] MEDS: tiZANidine 4 MG TAB PO SCH (20:51)
[2023-07-11] MEDS: HYDROcodone/APAP 5-325MG 1 EACH TAB PO PRN ×2 (02:27→08:27)
--- NOTE | 2023-07-11 08:12 | P.PCN ---
Date of Procedure: 07/10/23 Description of Procedure: PREOPERATIVE DIAGNOSIS: Gastroesophageal reflux disease Abnormal computed tomography scan for gastric ulcers and gastritis Epigastric abdominal pain Morbid obesity due to excess, BMI 39.8 POSTOPERATIVE DIAGNOSIS: Chronic gastritis Chronic duodenitis Gastroesophageal reflux disease with erosive esophagitis OPERATION: Esophagogastroduodenoscopy (intra-operative) SURGEON: Trang Nava MD ANESTHESIA: GETA INDICATIONS: The patient is a 42-year-old female who presents with moderate severe epigastric abdominal pain including normal computed tomography scan for gastritis and possible gastric ulcers. Benefits and risks of the procedure were described. Informed consent was obtained. DESCRIPTION: After completion of the cholecystectomy, attention was brought to the endoscopy. An Olympus gastroscope was passed along the posterior oropharynx down to the distal esophagus where the squamocolumnar junction was encountered at 40 cm from the incisors. The stomach was entered and no bile reflux was found. Additional findings are listed below. The first through third portion of the duodenum was examined. Retroflexion of the scope confirmed Hill grade 2 lower esophageal valve. The squamocolumnar junction demonstrated LA grade C erosive esophagitis. The stomach was desufflated. The patient tolerated the procedure well. FINDINGS: Squamocolumnar junction 40 cm from the incisors. Diaphragmatic hiatus at 40 cm. Chronic duodenitis without active ulcers Hill grade 2 lower esophageal valve. LA grade B erosive esophagitis. Chronic gastritis without active bleeding RECOMMENDATIONS: Upper endoscopy as needed.
[2023-07-11 08:17] LABS: Basophils % (A) 0 %; Eosinophils # (A) 0.5 k/uL (0-0.7); Eosinophils % (A) 5 %; HCT 37.9 % (34.0-46.0); HGB 12.1 gm/dL (11.4-16.0); Lymphocytes # (A) 2.5 k/uL (1.0-4.8); Lymphocytes % (A) 25 %; MCH 28.1 pg (25.0-35.0); MCHC 32.1 g/dL (31.0-37.0); MCV 87.7 fL (80.0-100.0); Monocytes # (A) 0.7 k/uL (0-1.0); Monocytes % (A) 7 %; Neutrophils % (A) 61 %; Platelet Count 308 k/uL (150-450); RBC 4.32 m/uL (3.80-5.40); RDW 13.9 % (11.5-15.5); WBC 9.8 k/uL (3.8-10.6)
[2023-07-11] MEDS: LITHIUM CARBONATE ER 450 MG TABLET.ER PO SCH (08:21)
[2023-07-11] MEDS: GABAPENTIN 300 MG CAP PO SCH (08:22)
[2023-07-11] MEDS: PROPRANOLOL 10 MG TAB PO SCH (08:22)
[2023-07-11] MEDS: busPIRone HCl 10 MG TAB PO SCH (08:22)
[2023-07-11] MEDS: PANTOPRAZOLE 40 MG/10 ML VIAL IVP SCH (08:22)
[2023-07-11] MEDS: DULoxetine HCL 60 MG CAPSULE.DR PO SCH (08:22)
[2023-07-11] MEDS: VERAPAMIL SR 120 MG TABLET.ER PO SCH (08:22)
[2023-07-11] MEDS: SODIUM CHLORIDE 0.9% 1,000 ML IV SCH (08:23)
[2023-07-11] MEDS: DICYCLOMINE 20 MG TAB PO SCH (08:23)
[2023-07-11] MEDS ORDERED: ENOXAPARIN 30 MG/0.3 ML SYRINGE SQ SCH (09:00)
[2023-07-11 09:19] LABS: ALT 55 U/L (4-34); AST 56 U/L (14-36); African American GFR (CKD) >90 (>60 ml/min/1.73 sqM); Albumin 3.4 g/dL (3.5-5.0); Albumin/Globulin Ratio 1.3; Alkaline Phosphatase 114 U/L (38-126); Anion Gap 11 mmol/L; Blood Urea Nitrogen 5 mg/dL (7-17); Calcium 8.3 mg/dL (8.4-10.2); Carbon Dioxide 21 mmol/L (22-30); Chloride 102 mmol/L (98-107); Globulin 2.6 g/dL; Glucose 99 mg/dL (74-99); Non-African American GFR(CKD) >90 (>60 ml/min/1.73 sqM); Potassium 3.9 mmol/L (3.5-5.1); Sodium 134 mmol/L (137-145); Total Bilirubin 0.5 mg/dL (0.2-1.3)
--- NOTE | 2023-07-11 12:19 | P.PN ---
Progress Note - Text Progress Note Date: 07/11/23 Patient's postop day 1 colposcopic cholecystectomy. She is doing well. She is having some issues with pain control and would like to stay 1 more day.
--- NOTE | 2023-07-11 14:37 | P.PN ---
Subjective Progress Note Date: 07/11/23 patient is a 42-year-old lady with past medical history significant for hypertension, MS who presented to the hospital because of nausea vomiting abdominal pain. Patient has been dealing with this issue for the last 1-2 weeks. Patient had recent EGD and colonoscopy done with GI that showed antral gastritis. Patient states her last 1-2 weeks she has been having right upper quadrant abdominal pain that is intermittent, brought on by eating. Patient was also having nausea and vomiting. Patient unable to keep anything down after eating. Denies any fever or chills. Patient was having altered bowel movements with initially diarrhea but for the last 2 days patient has not had bowel movement.. Because the symptoms, patient came to the ER Initial lab work done in the ER showed a PVC 8.5, hemoglobin 14.3, platelet count 364, sodium 137, potassium 4, BUN 12, creatinine 0.65, AST 51, AST 76, lipase 149 UA negative for any infection CT abdominal and pelvis done showed moderate thickening of the mid to distal gastric body and antrum. Hepatomegaly with hepatic steatosis. Hydropic gallbladder Abdominal ultrasound done showed hepatomegaly with underlying hepatic steatosis Patient admitted to internal medicine service 07/10. Patient seen and examined. Still having right upper quadrant pain. Currently nothing by mouth scheduled for surgery today 07/11. Patient seen and examined. Patient underwent robotic-assisted laparoscopic cholecystectomy on 07/10. EGD done showed Chronic gastritis,Chronic duodenitis,Gastroesophageal reflux disease with erosive e sophagitis. States pain is improved. Discussed with patient regarding discharge, patient keen to go in the morning REVIEW OF SYSTEMS: CONSTITUTIONAL: No fever, no malaise,. CARDIOVASCULAR: No chest pain, no palpitations, no syncope. PULMONARY: No shortness of breath, no cough, GASTROINTESTINAL: No diarrhea, no nausea, no vomiting, NEUROLOGICAL: No headaches, no weakness, PHYSICAL EXAMINATION: GENERAL: The patient is alert and oriented x3, not in any acute distress. Well developed, well nourished. HEENT: Pupils are round and equally reacting to light. EOMI. No scleral icterus. No conjunctival pallor. Normocephalic, atraumatic. No pharyngeal erythema. No thyromegaly. CARDIOVASCULAR: S1 and S2 present. No murmurs, rubs, or gallops. PULMONARY: Chest is clear to auscultation, no wheezing or crackles. ABDOMEN: Laparoscopic surgical incision seen, no tenderness. No palpable organomegaly. MUSCULOSKELETAL: No joint swelling or deformity. EXTREMITIES: No cyanosis, clubbing, or pedal edema. NEUROLOGICAL: Gross neurological examination did not reveal any focal deficits. SKIN: No rashes. Assessment and plan Acute cholecystitis with hydrops and distended gallbladder Acute right upper quadrant abdominal pain Nausea and vomiting Hypertension MS History of a pulmonary embolism Tobacco use and dependence Monitor vital signs Monitor CBC Monitor CMP Continue pain management Continue IV fluids Continue antiemetics Status post robotic-assisted laparoscopic cholecystectomy on 07/10. EGD done showed Chronic gastritis,Chronic duodenitis,Gastroesophageal reflux disease with erosive esophagitis. Surgery following Labs and medication were reviewed.. Continue same treatment. Continue with symptomatic treatment. Resume home medication. Monitor labs and vitals. DVT and GI prophylaxis. Further recommendations as per clinical course of the patient Dictation was produced using [employer] dictation software. please excuse any grammatical, word or spelling errors. Objective - Vital Signs Vital signs: Vital Signs Temp 97.8 F 07/11/23 07:00 Pulse 51 L 07/11/23 07:00 Resp 16 07/11/23 07:00 BP 104/55 07/11/23 07:00 Pulse Ox 98 07/11/23 07:00 FiO2 Intake & Output 07/10/23 07/11/23 07/11/23 18:59 06:59 18:59 Intake Total 750 400 118 Output Total 20 Balance 730 400 118 Weight 105.233 kg Intake: IV 750 0 Oral 400 118 Output: Estimated Blood Loss 20 Other: # Voids 2 1 - Labs CBC & Chem 7: 07/11/23 06:46 07/11/23 06:46 Labs: Abnormal Lab Results - Last 24 Hours (Table) 07/11/23 Range/Units 06:46 Sodium 134 L (137-145) mmol/L Carbon Dioxide 21 L (22-30) mmol/L BUN 5 L (7-17) mg/dL Calcium 8.3 L (8.4-10.2) mg/dL AST 56 H (14-36) U/L ALT 55 H (4-34) U/L Total Protein 6.0 L (6.3-8.2) g/dL Albumin 3.4 L (3.5-5.0) g/dL
[2023-07-11 15:10] VITALS: BP 110/72; PULSE 72; TEMP 98
--- NOTE | 2023-07-12 09:55 | P.DS ---
Providers Date of admission: 07/08/23 14:14 Expected date of discharge: 07/12/23 Attending physician: Jean Bassett MD Consults: 07/09/23 08:14 Consult Physician Routine Consulting Provider: Trang Nava Consult Reason/Comments: GB distended, gastritis Do you want consulting provider notified?: Yes Primary care physician: [facility] Hospital Course: Discharge diagnoses; Acute cholecystitis with hydrops and distended gallbladder Acute right upper quadrant abdominal pain Nausea and vomiting Hypertension MS History of a pulmonary embolism Tobacco use and dependence Hospital course; patient is a 42-year-old lady with past medical history significant for hypertension, MS who presented to the hospital because of nausea vomiting abdominal pain. Patient has been dealing with this issue for the last 1-2 weeks. Patient had recent EGD and colonoscopy done with GI that showed antral gastritis. Patient states her last 1-2 weeks she has been having right upper q uadrant abdominal pain that is intermittent, brought on by eating. Patient was also having nausea and vomiting. Patient unable to keep anything down after eating. Denies any fever or chills. Patient was having altered bowel movements with initially diarrhea but for the last 2 days patient has not had bowel movement.. Because the symptoms, patient came to the ER Initial lab work done in the ER showed a PVC 8.5, hemoglobin 14.3, platelet count 364, sodium 137, potassium 4, BUN 12, creatinine 0.65, AST 51, AST 76, lipase 149 UA negative for any infection CT abdominal and pelvis done showed moderate thickening of the mid to distal gastric body and antrum. Hepatomegaly with hepatic steatosis. Hydropic gallbladder Abdominal ultrasound done showed hepatomegaly with underlying hepatic steatosis Patient admitted to internal medicine service 07/10. Patient seen and examined. Still having right upper quadrant pain. Currently nothing by mouth scheduled for surgery today 07/11. Patient seen and examined. Patient underwent robotic-assisted laparoscopic cholecystectomy on 07/10. EGD done showed Chronic gastritis,Chronic duodenitis,Gastroesophageal reflux disease with erosive esopha gitis. States pain is improved. Being discharged in stable condition PHYSICAL EXAMINATION: GENERAL: The patient is alert and oriented x3, not in any acute distress. Well developed, well nourished. HEENT: Pupils are round and equally reacting to light. EOMI. No scleral icterus. No conjunctival pallor. Normocephalic, atraumatic. No pharyngeal erythema. No thyromegaly. CARDIOVASCULAR: S1 and S2 present. No murmurs, rubs, or gallops. PULMONARY: Chest is clear to auscultation, no wheezing or crackles. ABDOMEN: Laparoscopic surgical incision seen, no tenderness. No palpable organomegaly. MUSCULOSKELETAL: No joint swelling or deformity. EXTREMITIES: No cyanosis, clubbing, or pedal edema. NEUROLOGICAL: Gross neurological examination did not reveal any focal deficits. SKIN: No rashes. Dictation was produced using [employer] dictation software. please excuse any grammatical, word or spelling errors. Patient Condition at Discharge: Good Plan - Discharge Summary New Discharge Prescriptions: New Simethicone [Gas-X] 125 mg PO AC-TID PRN #20 capsule PRN Reason: Pain Acetaminophen Tab [Tylenol Tab] 1,000 mg PO Q6HR PRN #30 tablet PRN Reason: Pain Pantoprazole Sodium [Protonix] 40 mg PO DAILY #30 tab Continue SUMAtriptan succinate 100 mg PO BID PRN PRN Reason: Migraine Headache traZODone HCL [Desyrel] 100 mg PO HS 14 Days #14 tab hydrOXYzine pamoate [hydrOXYzine PAMOATE] 50 mg PO BID PRN 14 Days #56 cap PRN Reason: Anxiety tiZANidine [Zanaflex] 4 mg PO HS Meloxicam 7.5 mg PO DAILY Amoxic-Pot Clav 875-125Mg [Augmentin 875-125] 1 tab PO Q12HR #20 tab Dicyclomine [Bentyl] 20 mg PO TID #30 tablet Propranolol [Inderal] 10 mg PO BID Cholecalciferol [Vitamin D3 (25 Mcg = 1000 Iu)] 50 mcg PO DAILY Verapamil HCl [Verapamil ER] 120 mg PO DAILY busPIRone HCL [Buspar] 30 mg PO BID 14 Days #28 tablet DULoxetine HCL [Cymbalta] 60 mg PO BID 14 Days #28 cap Laird Carbonate ER [Lithobid] 450 mg PO DAILY 14 Days #14 tab Gabapentin 300 mg PO BID Dimethyl Fumarate 240 mg PO BID Ondansetron Odt [Zofran ODT] 4 mg PO TID PRN PRN Reason: Nausea Diclofenac Sodium 50 mg PO BID Discontinued Omeprazole 20 mg PO DAILY Discharge Medication List Cholecalciferol [Vitamin D3 (25 Mcg = 1000 Iu)] 50 mcg PO DAILY 07/05/22 [History] SUMAtriptan succinate 100 mg PO BID PRN 12/20/22 [History] Verapamil HCl [Verapamil ER] 120 mg PO DAILY 12/20/22 [History] DULoxetine HCL [Cymbalta] 60 mg PO BID 14 Days #28 cap 12/26/22 [Rx] Laird Carbonate ER [Lithobid] 450 mg PO DAILY 14 Days #14 tab 12/26/22 [Rx] busPIRone HCL [Buspar] 30 mg PO BID 14 Days #28 tablet 12/26/22 [Rx] hydrOXYzine pamoate [hydrOXYzine PAMOATE] 50 mg PO BID PRN 14 Days #56 cap 12/26/22 [Rx] traZODone HCL [Desyrel] 100 mg PO HS 14 Days #14 tab 12/26/22 [Rx] Meloxicam 7.5 mg PO DAILY 05/20/23 [History] tiZANidine [Zanaflex] 4 mg PO HS 05/20/23 [History] Amoxic-Pot Clav 875-125Mg [Augmentin 875-125] 1 tab PO Q12HR #20 tab 07/05/23 [Rx] Dicyclomine [Bentyl] 20 mg PO TID #30 tablet 07/07/23 [Rx] Diclofenac Sodium 50 mg PO BID 07/08/23 [History] Dimethyl Fumarate 240 mg PO BID 07/08/23 [History] Gabapentin 300 mg PO BID 07/08/23 [History] Ondansetron Odt [Zofran ODT] 4 mg PO TID PRN 07/08/23 [History] Propranolol [Inderal] 10 mg PO BID 07/08/23 [History] Acetaminophen Tab [Tylenol Tab] 1,000 mg PO Q6HR PRN #30 tablet 07/11/23 [Rx] Pantoprazole Sodium [Protonix] 40 mg PO DAILY #30 tab 07/11/23 [Rx] Simethicone [Gas-X] 125 mg PO AC-TID PRN #20 capsule 07/11/23 [Rx] Follow up Appointment(s)/Referral(s): Trang Nava MD [STAFF PHYSICIAN] - 07/14/23 5:00 pm (TELEHEALTH) Sunilkumar,Mini, MD [Primary Care Provider] - 1-2 days Patient Instructions/Handouts: Low Fat Diet (DC), Laparoscopic Cholecystectomy (DC) Activity/Diet/Wound Care/Special Instructions: TELEHEALTH - WILL CALL YOU BETWEEN 8 am to 8 pm Recommend low-fat diet for the next 2 days. No lifting over 10 pounds in 2 weeks until Jul 24November shower. No bath tub soaks for two weeks until Jul 24 Diet as tolerated. Use Tylenol, simethicone and ibuprofen or Aleve scheduled for the next 24-48 hours for best pain relief. Use ice along incisions for today to prevent swelling. Discharge Disposition: HOME SELF-CARE
== END 2023-07-11 15:55 | disposition home or self-care (01) ==
LOC: EC 09:17 → 6NMEDSUR 14:14 → OBSVTOIN 14:14 → INTOOBSV 14:14 → 6NMEDSUR 15:48 → UNDODISIN 07-11 15:55
PROVIDERS: ADMIT Internal Medicine; ATTEND Internal Medicine
DX: K81.1 Chronic cholecystitis (principal); K82.1 Hydrops of gallbladder; K29.50 Unspecified chronic gastritis without bleeding; K29.80 Duodenitis without bleeding; R16.0 Hepatomegaly, not elsewhere classified; K76.0 Fatty (change of) liver, not elsewhere classified; K21.00 Gastro-esophageal reflux disease with esophagitis, without bleeding; I10 Essential (primary) hypertension; G35 Multiple sclerosis; F41.9 Anxiety disorder, unspecified; F32.A Depression, unspecified; M06.9 Rheumatoid arthritis, unspecified; K74.60 Unspecified cirrhosis of liver; E66.01 Morbid (severe) obesity due to excess calories; F17.290 Nicotine dependence, other tobacco product, uncomplicated; Z68.39 Body mass index [BMI] 39.0-39.9, adult; Z86.711 Personal history of pulmonary embolism; Z79.1 Long term (current) use of non-steroidal anti-inflammatories (NSAID); Z79.899 Other long term (current) drug therapy; Z88.1 Allergy status to other antibiotic agents
CPT/HCPCS: 43235; 47562; S2900; 36415; 74177; 76705; 78227; 80048; 80053; 81003; 81025; 82150; 83690; 85025; 87045; 87046; 88304; 96361; 96365; 96367; 96372; 96374; 96375; 96376; 99285

== ENCOUNTER 2023-09-08 09:54 | Emergency (ER) | payer OTHER ==
--- NOTE | 2023-09-08 10:24 | ED ---
Weakness HPI - General Chief complaint: Weakness Stated complaint: Fatuige,hot flash Time Seen by Provider: 09/08/23 09:59 Source: patient, RN notes reviewed Mode of arrival: ambulatory Limitations: no limitations - History of Present Illness Initial comments: This is a 42 year old female who presents to the emergency department for weakness and fatigue. States that she had URI symptoms a couple of weeks ago, which have since improved. However, she still feels incredibly weak. States that she has no energy and also feels sore all over her body. Also reports episodes of confusion. She has the chills and feels hot, but denies measuring any fevers. Denies any urinary symptoms, but does report pain in the left mid back. Denies any abdominal pain, nausea, or vomiting. Also denies any chest pain or shortness of breath. She does have MS and states that she may also be experiencing a flare up. MD Complaint: generalized weakness - Related Data Home Medications Medication Instructions Recorded Confirmed Propranolol [Inderal] 20 mg PO BID 07/08/23 09/08/23 hydrOXYzine pamoate [Vistaril] 50 mg PO BID PRN 09/08/23 09/08/23 Previous Rx's Medication Instructions Recorded DULoxetine HCL [Cymbalta] 60 mg PO BID 14 Days #28 cap 12/26/22 [place] Carbonate ER [Lithobid] 450 mg PO DAILY 14 Days #14 tab 12/26/22 busPIRone HCL [Buspar] 30 mg PO BID 14 Days #28 tablet 12/26/22 traZODone HCL [Desyrel] 100 mg PO HS 14 Days #14 tab 12/26/22 Pantoprazole Sodium [Protonix] 40 mg PO DAILY #30 tab 07/11/23 Azithromycin [Zithromax] 250 mg PO DIRECTED 5 Days #6 tab 09/08/23 predniSONE 50 mg PO DAILY 5 Days #5 tab 09/08/23 Allergies Allergy/AdvReac Type Severity Reaction Status Date / Time vancomycin Allergy Severe Rash/Hives, Verified 09/08/23 11:35 itching, burning Review of Systems ROS Statement: Those systems with pertinent positive or pertinent negative responses have been documented in the HPI. ROS Other: All systems not noted in ROS Statement are negative. Past Medical History Past Medical History: Blood Disorder, Eye Disorder, Neurologic Disorder, Pulmonary Embolus (PE), Rheumatoid Arthritis (RA), Vascular Disorder Additional Past Medical History / Comment(s): MS, optic neuritis, PE/pt cannot recall laterallity, aortic calcification, chronic low back pain/bulging discs, possible ventral hernia, past meth abuse/clean for 28 months. EXPLOSIVE DIARRHEA History of Any Multi-Drug Resistant Organisms: MRSA Date of last positivie culture/infection: 04/09/22 MDRO Source:: Buttock Past Surgical History: Appendectomy Additional Past Surgical History / Comment(s): ectopic (2/ L fallopian tube rupture with surgery, R labia abscess/I&D Past Anesthesia/Blood Transfusion Reactions: No Reported Reaction Past Psychological History: Anxiety, Depression Smoking Status: Former smoker, Vaper Past Alcohol Use History: Rare Past Drug Use History: Marijuana - Past Family History Father Family Medical History: No Reported History Mother History Unknown: Yes General Exam Limitations: no limitations General appearance: alert, in no apparent distress Head exam: Present: atraumatic, normocephalic, normal inspection Respiratory exam: Present: normal lung sounds bilaterally. Absent: respiratory distress, wheezes, rales, rhonchi, stridor Cardiovascular Exam: Present: regular rate, normal rhythm, normal heart sounds. Absent: systolic murmur, diastolic murmur, rubs, gallop, clicks GI/Abdominal exam: Present: soft, normal bowel sounds. Absent: distended, tenderness, guarding, rebound, rigid Neurological exam: Present: alert, oriented X3, CN II-XII intact Psychiatric exam: Present: normal affect, normal mood Skin exam: Present: warm, dry, intact, normal color. Absent: rash Course Vital Signs 09/08/23 09/08/23 09:55 14:53 Temperature 98.4 F 96.5 F L Pulse Rate 105 H 69 Respiratory 20 12 Rate Blood Pressure 130/83 112/86 O2 Sat by Pulse 97 100 Oximetry Medical Decision Making - Medical Decision Making This is a 42 year old female who presents to the emergency department for weakness. Was pt. sent in by a medical professional or institution? @ -No Did you speak to anyone other than the patient for history? @ -No Did you review nursing and triage notes? @ -Yes, and I agree, it is accurate with regards to the patient's symptoms. Were old charts reviewed? @ -No Differential Diagnosis? @ -Differential Weakness: Hypoglycemia, shock, sepsis, hyponatremia, anemia, infection, NV, ETOH, adverse medicine reaction, overdose, stroke, this is not meant to be an all-inclusive list. EKG interpreted by me (3pts min.)? @ -EKG interpreted by me demonstrating the following: Sinus rhythm. Ventricular rate 80 beats per minute, PA interval 173 ms, QRS duration 87 ms, QTC 404 ms. X-rays interpreted by me (1pt min.)? @ -Chest x-ray obtained, my interpretation identifies no localized consolidations or infiltrates. CT interpreted by me (1pt min.)? @ -CTA of the chest obtained. My interpretation identifies no evidence of a pu lmonary embolus. U/S interpreted by me (1pt. min.)? @ -Not obtained What testing was considered but not performed? (CT, X-rays, U/S, labs)? Why? @ -None What meds were considered but not given? Why? @ -None Did you discuss the management of the patient with other professionals? @ -No Did you reconcile home meds? @ -No Was smoking cessation discussed for >3mins.? @ -No Was critical care preformed (if so, how long)? @ -No Were there social determinants of health that impacted care today? How? (Homelessness, low income, unemployed, alcoholism, drug addiction, transportation, low edu. Level, literacy, decrease access to med. care, nursing home, rehab)? @ -No Was there de-escalation of care discussed even if they declined? (Discuss DNR or withdrawal of care, Hospice)? @ -No What co-morbidities impacted this encounter? (DM, HTN, Smoking, COPD, CAD, Cancer, CVA, Hep., AIDS, mental health diagnosis, sleep apnea, morbid obesity)? @ -MS, vascular disorder, blood disorder, rheumatoid arthritis Was patient admitted / discharged? @ -Discharged. Lab work obtained revealing mild leukocytosis and a mild elevation in liver enzymes. COVID, influenza, and RSV testing were negative. Urinalysis negative for signs of infection. Chest x-ray reveals no acute process. D-dimer did return positive, and a CTA of the chest was obtained. No evidence of a pulmonary embolus was identified. It did demonstrate a couple of tiny foci of ground glass attenuation in the right upper lobe that may represent small airway infectious/inflammatory process. Given the patient's symptoms and leukocytosis present with the CTA findings, we discussed the possibility of antibiotic management. She requested to proceed. She was given a prescription for azithromycin to be taken for 5 days. Patient otherwise discharged home in stable condition and will follow up with her primary care provider. Undiagnosed new problem with uncertain prognosis? @ -None Drug Therapy requiring intensive monitoring for toxicity (Heparin, Nitro, Insulin, Cardizem)? @ -None Were any procedures done? @ -None Diagnosis/symptom? @ -Fatigue, ground glass opacity on imaging of lung Acute, or Chronic, or Acute on Chronic? @ -Acute Uncomplicated (without systemic symptoms) or Complicated (systemic symptoms)? @ -Uncomplicated Side effects of treatment? @ -None Exacerbation, Progression, or Severe Exacerbation] @ -Not applicable Poses a threat to life or bodily function? @ -No Return precautions reviewed in depth, the patient is instructed to return to the emergency department with any new, worsening, or concerning symptoms. Patient verbalized understanding. ' This case was discussed in detail with the attending ED physician, Dr. Sepulveda. Presentation, findings, and treatment plan discussed in detail as well. - Lab Data Result diagrams: 09/08/23 10:19 09/08/23 10:19 Lab Results 09/08/23 09/08/23 09/08/23 Range/Units 10:19 10:19 10:19 WBC 11.4 H (3.8-10.6) k/uL RBC 4.46 (3.80-5.40) m/uL Hgb 13.1 (11.4-16.0) gm/dL Hct 39.1 (34.0-46.0) % MCV 87.7 (80.0-100.0) fL MCH 29.4 (25.0-35.0) pg MCHC 33.5 (31.0-37.0) g/dL RDW 13.4 (11.5-15.5) % Plt Count 350 (150-450) k/uL MPV 7.9 Neutrophils % 66 % Lymphocytes % 21 % Monocytes % 4 % Eosinophils % 6 % Basophils % 1 % Neutrophils # 7.5 (1.3-7.7) k/uL Lymphocytes # 2.4 (1.0-4.8) k/uL Monocytes # 0.5 (0-1.0) k/uL Eosinophils # 0.7 (0-0.7) k/uL Basophils # 0.1 (0-0.2) k/uL PT 9.7 L (10.0-12.5) sec INR 0.9 (<1.2) APTT 25.5 (22.0-30.0) sec D-Dimer (<0.60) mg/L FEU Sodium 138 (137-145) mmol/L Potassium 4.7 (3.5-5.1) mmol/L Chloride 109 H (98-107) mmol/L Carbon Dioxide 19 L (22-30) mmol/L Anion Gap 10 mmol/L BUN 14 (7-17) mg/dL Creatinine 0.55 (0.52-1.04) mg/dL Est GFR (CKD-EPI)AfAm >90 (>60 ml/min/1.73 sqM) Est GFR (CKD-EPI)NonAf >90 (>60 ml/min/1.73 sqM) Glucose 133 H (74-99) mg/dL Plasma Lactic Acid Erik (0.7-2.0) mmol/L Calcium 9.3 (8.4-10.2) mg/dL Magnesium 1.9 (1.6-2.3) mg/dL Total Bilirubin 0.4 (0.2-1.3) mg/dL AST 50 H (14-36) U/L ALT 72 H (4-34) U/L Alkaline Phosphatase 111 (38-126) U/L Troponin I (0.000-0.034) ng/mL Total Protein 7.3 (6.3-8.2) g/dL Albumin 4.3 (3.5-5.0) g/dL Urine Color Urine Appearance (Clear) Urine pH (5.0-8.0) Ur Specific [place] (1.001-1.035) Urine Protein (Negative) Urine Glucose (UA) (Negative) Urine Ketones (Negative) Urine Blood (Negative) Urine Nitrite (Negative) Urine Bilirubin (Negative) Urine Urobilinogen (<2.0) mg/dL Ur Leukocyte Esterase (Negative) Urine RBC (0-5) /hpf Urine WBC (0-5) /hpf Ur Squamous Epith Cells (0-4) /hpf Calcium Oxalate Crystal (None) /hpf Urine Bacteria (None) /hpf Hyaline Casts (0-2) /lpf Urine Mucus (None) /hpf Urine Yeast (Budding) (None) /hpf Urine HCG, Qual (Not Detectd) Influenza Type A (PCR) (Not Detectd) Influenza Type B (PCR) (Not Detectd) RSV (PCR) (Not Detectd) SARS-CoV-2 (PCR) (Not Detectd) 09/08/23 09/08/23 09/08/23 Range/Units 10:19 10:19 10:19 WBC (3.8-10.6) k/uL RBC (3.80-5.40) m/uL Hgb (11.4-16.0) gm/dL Hct (34.0-46.0) % MCV (80.0-100.0) fL MCH (25.0-35.0) pg MCHC (31.0-37.0) g/dL RDW (11.5-15.5) % Plt Count (150-450) k/uL MPV Neutrophils % % Lymphocytes % % Monocytes % % Eosinophils % % Basophils % % Neutrophils # (1.3-7.7) k/uL Lymphocytes # (1.0-4.8) k/uL Monocytes # (0-1.0) k/uL Eosinophils # (0-0.7) k/uL Basophils # (0-0.2) k/uL PT (10.0-12.5) sec INR (<1.2) APTT (22.0-30.0) sec D-Dimer (<0.60) mg/L FEU Sodium (137-145) mmol/L Potassium (3.5-5.1) mmol/L Chloride (98-107) mmol/L Carbon Dioxide (22-30) mmol/L Anion Gap mmol/L BUN (7-17) mg/dL Creatinine (0.52-1.04) mg/dL Est GFR (CKD-EPI)AfAm (>60 ml/min/1.73 sqM) Est GFR (CKD-EPI)NonAf (>60 ml/min/1.73 sqM) Glucose (74-99) mg/dL Plasma Lactic Acid Erik 1.8 (0.7-2.0) mmol/L Calcium (8.4-10.2) mg/dL Magnesium (1.6-2.3) mg/dL Total Bilirubin (0.2-1.3) mg/dL AST (14-36) U/L ALT (4-34) U/L Alkaline Phosphatase (38-126) U/L Troponin I <0.012 (0.000-0.034) ng/mL Total Protein (6.3-8.2) g/dL Albumin (3.5-5.0) g/dL Urine Color Urine Appearance (Clear) Urine pH (5.0-8.0) Ur Specific [place] (1.001-1.035) Urine Protein (Negative) Urine Glucose (UA) (Negative) Urine Ketones (Negative) Urine Blood (Negative) Urine Nitrite (Negative) Urine Bilirubin (Negative) Urine Urobilinogen (<2.0) mg/dL Ur Leukocyte Esterase (Negative) Urine RBC (0-5) /hpf Urine WBC (0-5) /hpf Ur Squamous Epith Cells (0-4) /hpf Calcium Oxalate Crystal (None) /hpf Urine Bacteria (None) /hpf Hyaline Casts (0-2) /lpf Urine Mucus (None) /hpf Urine Yeast (Budding) (None) /hpf Urine HCG, Qual (Not Detectd) Influenza Type A (PCR) Not Detected (Not Detectd) Influenza Type B (PCR) Not Detected (Not Detectd) RSV (PCR) Not Detected (Not Detectd) SARS-CoV-2 (PCR) Not Detected (Not Detectd) 09/08/23 09/08/23 09/08/23 Range/Units 10:19 10:21 10:21 WBC (3.8-10.6) k/uL RBC (3.80-5.40) m/uL Hgb (11.4-16.0) gm/dL Hct (34.0-46.0) % MCV (80.0-100.0) fL MCH (25.0-35.0) pg MCHC (31.0-37.0) g/dL RDW (11.5-15.5) % Plt Count (150-450) k/uL MPV Neutrophils % % Lymphocytes % % Monocytes % % Eosinophils % % Basophils % % Neutrophils # (1.3-7.7) k/uL Lymphocytes # (1.0-4.8) k/uL Monocytes # (0-1.0) k/uL Eosinophils # (0-0.7) k/uL Basophils # (0-0.2) k/uL PT (10.0-12.5) sec INR (<1.2) APTT (22.0-30.0) sec D-Dimer 2.12 H (<0.60) mg/L FEU Sodium (137-145) mmol/L Potassium (3.5-5.1) mmol/L Chloride (98-107) mmol/L Carbon Dioxide (22-30) mmol/L Anion Gap mmol/L BUN (7-17) mg/dL Creatinine (0.52-1.04) mg/dL Est GFR (CKD-EPI)AfAm (>60 ml/min/1.73 sqM) Est GFR (CKD-EPI)NonAf (>60 ml/min/1.73 sqM) Glucose (74-99) mg/dL Plasma Lactic Acid Erik (0.7-2.0) mmol/L Calcium (8.4-10.2) mg/dL Magnesium (1.6-2.3) mg/dL Total Bilirubin (0.2-1.3) mg/dL AST (14-36) U/L ALT (4-34) U/L Alkaline Phosphatase (38-126) U/L Troponin I (0.000-0.034) ng/mL Total Protein (6.3-8.2) g/dL Albumin (3.5-5.0) g/dL Urine Color Yellow Urine Appearance Cloudy H (Clear) Urine pH 5.5 (5.0-8.0) Ur Specific [place] 1.022 (1.001-1.035) Urine Protein Negative (Negative) Urine Glucose (UA) Negative (Negative) Urine Ketones Negative (Negative) Urine Blood Negative (Negative) Urine Nitrite Negative (Negative) Urine Bilirubin Negative (Negative) Urine Urobilinogen <2.0 (<2.0) mg/dL Ur Leukocyte Esterase Negative (Negative) Urine RBC 3 (0-5) /hpf Urine WBC 2 (0-5) /hpf Ur Squamous Epith Cells 6 H (0-4) /hpf Calcium Oxalate Crystal Rare H (None) /hpf Urine Bacteria Rare H (None) /hpf Hyaline Casts 1 (0-2) /lpf Urine Mucus Occasional H (None) /hpf Urine Yeast (Budding) Occasional H (None) /hpf Urine HCG, Qual Not Detected (Not Detectd) Influenza Type A (PCR) (Not Detectd) Influenza Type B (PCR) (Not Detectd) RSV (PCR) (Not Detectd) SARS-CoV-2 (PCR) (Not Detectd) - Radiology Data Radiology results: report reviewed, image reviewed Disposition Clinical Impression: Fatigue, Ground glass opacity present on imaging of lung Disposition: HOME SELF-CARE Additional Instructions: Return to the emergency department with any new, worsening, or concerning symptoms. Take the antibiotic as prescribed for 5 days. Take the steroid daily for 5 days. Alternate with ibuprofen and Tylenol as needed for pain relief. Follow up with your primary care provider in 1-2 days. Prescriptions: predniSONE 50 mg PO DAILY 5 Days #5 tab Azithromycin [Zithromax] 250 mg PO DIRECTED 5 Days #6 tab Is patient prescribed a controlled substance at d/c from ED?: No Referrals: aDry La MD [Primary Care Provider] - 1-2 days Time of Disposition: 14:09
[2023-09-08 10:40] LABS: Basophils # (A) 0.1 k/uL (0-0.2); Basophils % (A) 1 %; Eosinophils # (A) 0.7 k/uL (0-0.7); Eosinophils % (A) 6 %; HCT 39.1 % (34.0-46.0); HGB 13.1 gm/dL (11.4-16.0); Lymphocytes # (A) 2.4 k/uL (1.0-4.8); Lymphocytes % (A) 21 %; MCH 29.4 pg (25.0-35.0); MCHC 33.5 g/dL (31.0-37.0); MCV 87.7 fL (80.0-100.0); Mean Platelet Volume 7.9; Monocytes # (A) 0.5 k/uL (0-1.0); Monocytes % (A) 4 %; Neutrophils # (A) 7.5 k/uL (1.3-7.7); Neutrophils % (A) 66 %; Platelet Count 350 k/uL (150-450); RBC 4.46 m/uL (3.80-5.40); RDW 13.4 % (11.5-15.5); WBC 11.4 k/uL (3.8-10.6)
[2023-09-08] MEDS: SODIUM CHLORIDE 0.9% 1,000 ML IV STA (10:50)
[2023-09-08] MEDS: KETOROLAC 15 MG/ML 1 ML VIAL IVP STA (10:50)
[2023-09-08 10:51] LABS: INR 0.9 (<1.2); Partial Thromboplastin Time 25.5 sec (22.0-30.0); Prothrombin Time 9.7 sec (10.0-12.5)
[2023-09-08 11:04] LABS: ALT 72 U/L (4-34); AST 50 U/L (14-36); African American GFR (CKD) >90 (>60 ml/min/1.73 sqM); Albumin 4.3 g/dL (3.5-5.0); Alkaline Phosphatase 111 U/L (38-126); Anion Gap 10 mmol/L; Blood Urea Nitrogen 14 mg/dL (7-17); Calcium 9.3 mg/dL (8.4-10.2); Carbon Dioxide 19 mmol/L (22-30); Chloride 109 mmol/L (98-107); Glucose 133 mg/dL (74-99); Magnesium 1.9 mg/dL (1.6-2.3); Non-African American GFR(CKD) >90 (>60 ml/min/1.73 sqM); Potassium 4.7 mmol/L (3.5-5.1); Sodium 138 mmol/L (137-145); Total Bilirubin 0.4 mg/dL (0.2-1.3); Total Protein 7.3 g/dL (6.3-8.2)
--- NOTE | 2023-09-08 11:20 | XR ---
EXAMINATION TYPE: XR chest 2V DATE OF EXAM: 09/08/2023 COMPARISON: 11/24/2022 HISTORY: 42-year-old female with weakness, fatigue, lethargy TECHNIQUE: PA and lateral views FINDINGS: The cardiomediastinal silhouette, aorta, and pulmonary vasculature are within normal limits. Lungs an d pleural spaces are clear. Old healed right-sided rib fracture deformities. IMPRESSION: No acute cardiopulmonary process.
[2023-09-08 11:23] LABS: Appearance,Urine Cloudy (Clear); Bacteria,Urine Rare /hpf; Bilirubin,Urine Negative (Negative); Blood,Urine Negative (Negative); Budding Yeast,Urine Occasional /hpf; Calcium Oxalate Crystals,Urine Rare /hpf; Color,Urine Yellow; Glucose,Urine (UA) Negative (Negative); Hyaline Casts,Urine 1 /lpf (0-2); Ketones,Urine Negative (Negative); Leukocyte Esterase,Urine Negative (Negative); Mucus,Urine Occasional /hpf; Nitrite,Urine Negative (Negative); PH, Urine 5.5 (5.0-8.0); Protein,Urine Negative (Negative); RBC,Urine 3 /hpf (0-5); Specific Gravity,Urine 1.022 (1.001-1.035); Squamous Epithelial Cell,Urine 6 /hpf (0-4); Urobilinogen,Urine <2.0 mg/dL (<2.0); WBC,Urine 2 /hpf (0-5)
--- NOTE | 2023-09-08 13:59 | CT ---
EXAMINATION TYPE: CT chest angio for PE CT DLP: 457.7 mGycm, Automated exposure control for dose reduction was used. DATE OF EXAM: 09/08/2023 12:57 PM COMPARISON: CT chest angiogram for PE 09/01/2022 CLINICAL INDICATION:Female, 42 years old with history of Weakness, tachycardia, elevated d-dimer; Dana vated D-dimer TECHNIQUE/CONTRAST: CTA scan of the thorax is performed without and with IV Contrast, patient injected with 100 ml mL of Isovue 370, MIP images are created and reviewed these are created on a separate workstation.. FINDINGS: There is suboptimal contrast bolus timing. PULMONARY ARTERIES: There is no evidence for a filling defect within the pulmonary vasculature to sug gest acute pulmonary embolism. Pulmonary trunk is normal in size. Trunk measures 2.6 CM. HEART: Normal heart size. Small amount of pericardial fluid. AORTA: Bovine arch configuration without evidence of dissection. No aneurysm. Minimal atheroscleroti c disease LOWER NECK: No significant findings. MEDIASTINUM: No gross evidence of adenopathy. SOFT TISSUES/LYMPH NODES: Unremarkable soft tissues. No axillary adenopathy. LUNGS/ PLEURA: No sizable nodule, mass, or airspace consolidation. Minimal linear opacities in the le ft lung base likely scarring or subsegmental atelectasis. Tiny focus of subpleural groundglass attenu ation in the right upper lobe image 30, and vague additional tiny patch of groundglass opacity image 35. No pleural effusion or pneumothorax. AIRWAY: Central airways are patent. MUSCULOSKELETAL: No acute osseous abnormality. Minimal degenerative changes of the thoracic spine. UPPER ABDOMEN: Decreased attenuation of the liver parenchyma suggesting moderate steatosis. IMPRESSION: 1. No evidence of pulmonary embolism. 2. A couple of tiny foci of groundglass attenuation in the right upper lobe may represent small airwa ys infectious/inflammatory process.
[2023-09-08] MEDS: methylPREDNISolone SOD SUCCI 125 MG/2 ML VIAL IV STA (14:52)
[2023-09-08] MEDS: IBUPROFEN 600 MG STARTER PACK 4 TAB BTL PO STA (14:53)
[2023-09-08] MEDS: ACET/COD 300 MG/30 MG STARTER PACK 6 TAB BTL PO STA (14:53)
[2023-09-08 15:17] VITALS: BP 112/86; PULSE 69; RESP 12; TEMP 96.5
== END 2023-09-08 14:59 | disposition home or self-care (01) ==
LOC: EC 09:54
DX: R53.83 Other fatigue (principal); R91.8 Other nonspecific abnormal finding of lung field; F12.90 Cannabis use, unspecified, uncomplicated; F17.290 Nicotine dependence, other tobacco product, uncomplicated; Z86.59 Personal history of other mental and behavioral disorders; Z88.8 Allergy status to other drugs, medicaments and biological substances; Z20.822 Contact with and (suspected) exposure to COVID-19
CPT/HCPCS: 36415; 93005; 85379; 80053; 83605; 83735; 84484; 85025; 85610; 85730; 81001; 81025; 87636; 71046; 71275; 99285; 96374; 96375; 96361 ×4; J2930; J1885; Q9967

== ENCOUNTER 2023-10-03 09:36 | Emergency (ER) | payer OTHER ==
[2023-10-03 09:52] VITALS: RESP 18; TEMP 98
--- NOTE | 2023-10-03 10:07 | ED ---
General Adult HPI - General Chief complaint: Nausea/Vomiting/Diarrhea Stated complaint: NV, Chest discomfort from vomiting Time Seen by Provider: 10/03/23 09:40 Source: patient, RN notes reviewed, old records reviewed Mode of arrival: ambulatory Limitations: no limitations - History of Present Illness Initial comments: This is a 42-year-old female who presents to the emergency department complaining that 1 week ago she started having epigastric and right upper quadrant abdominal pain. Patient states she started vomiting on that day and since she has been nauseated and has probably vomited another 4 times. Patient states she has had some diarrhea but she also feels as though she is constipated. Patient states during that same time she has some chest discomfort which she describes as burning and it only occurs while she is vomiting and maybe a little shortness of breath. Patient denies any fevers chills. Patient denies any cough. Patient denies any lower extremity edema or calf pain. Patient denies any dysuria hematuria urinary frequency. Patient denies any CVA tenderness. - Related Data Home Medications Medication Instructions Recorded Confirmed Propranolol [Inderal] 20 mg PO BID 07/08/23 09/08/23 hydrOXYzine pamoate [Vistaril] 50 mg PO BID PRN 09/08/23 09/08/23 Previous Rx's Medication Instructions Recorded DULoxetine HCL [Cymbalta] 60 mg PO BID 14 Days #28 cap 12/26/22 [place] Carbonate ER [Lithobid] 450 mg PO DAILY 14 Days #14 tab 12/26/22 busPIRone HCL [Buspar] 30 mg PO BID 14 Days #28 tablet 12/26/22 traZODone HCL [Desyrel] 100 mg PO HS 14 Days #14 tab 12/26/22 Pantoprazole Sodium [Protonix] 40 mg PO DAILY #30 tab 07/11/23 Azithromycin [Zithromax] 250 mg PO DIRECTED 5 Days #6 tab 09/08/23 predniSONE 50 mg PO DAILY 5 Days #5 tab 09/08/23 Allergies Allergy/AdvReac Type Severity Reaction Status Date / Time vancomycin Allergy Severe Rash/Hives, Verified 10/03/23 09:40 itching, burning Review of Systems ROS Statement: Those systems with pertinent positive or pertinent negative responses have been documented in the HPI. ROS Other: All systems not noted in ROS Statement are negative. Past Medical History Past Medical History: Blood Disorder, Eye Disorder, Neurologic Disorder, Pulmonary Embolus (PE), Rheumatoid Arthritis (RA), Vascular Disorder Additional Past Medical History / Comment(s): MS, optic neuritis, PE/pt cannot recall laterallity, aortic calcification, chronic low back pain/bulging discs, possible ventral hernia, past meth abuse/clean for 28 months. EXPLOSIVE DIARRHEA History of Any Multi-Drug Resistant Organisms: MRSA Date of last positivie culture/infection: 04/09/22 MDRO Source:: Buttock Past Surgical History: Appendectomy Additional Past Surgical History / Comment(s): ectopic (2/ L fallopian tube rupture with surgery, R labia abscess/I&D Past Anesthesia/Blood Transfusion Reactions: No Reported Reaction Past Psychological History: Anxiety, Depression Smoking Status: Former smoker, Vaper Past Alcohol Use History: Rare Past Drug Use History: Marijuana - Past Family History Father Family Medical History: No Reported History Mother History Unknown: Yes General Exam - General Exam Comments Initial Comments: GENERAL: Patient is well-developed and well-nourished. Patient is nontoxic and well-hydrated and is in mild distress. ENT: Neck is soft and supple. No significant lymphadenopathy is noted. Oropharynx is clear. Moist mucous membranes. Neck has full range of motion without eliciting any pain. EYES: The sclera were anicteric and conjunctiva were pink and moist. Extraocular movements were intact and pupils were equal round and reactive to light. Eyelids were unremarkable. PULMONARY: Unlabored respirations. Good breath sounds bilaterally. No audible rales rhonchi or wheezing was noted. CARDIOVASCULAR: There is a regular rate and rhythm without any murmurs gallops or rubs. ABDOMEN: Patient has some tenderness in the right upper quadrant epigastric region SKIN: Skin is clear with no lesions or rashes and otherwise unremarkable. NEUROLOGIC: Patient is alert and oriented x3. Cranial nerves II through XII are grossly intact. Motor and sensory are also intact. Normal speech, volume and content. Symmetrical smile. MUSCULOSKELETAL: Normal extremities with adequate strength and full range of motion. No lower extremity swelling or edema. No calf tenderness. LYMPHATICS: No significant lymphadenopathy is noted PSYCHIATRIC: Normal psychiatric evaluation. Limitations: no limitations Course Vital Signs 10/03/23 09:37 Temperature 98 F Pulse Rate 108 H Respiratory 18 Rate Blood Pressure 132/78 O2 Sat by Pulse 98 Oximetry Medical Decision Making - Medical Decision Making EKG was interpreted by myself EKG shows a sinus rhythm at 80 bpm parables 172 QRS is 87 QT intervals 372 QTc is 408. Was pt. sent in by a medical professional or institution (VALDEZ Chen, MAIL ORDER CLERK, urgent care, hospital, or correction...) When possible be specific @ -No Did you speak to anyone other than the patient for history (EMS, parent, family, police, friend...)? What history was obtained from this source @ -No Did you review nursing and triage notes (agree or disagree)? Why? @ -I reviewed and agree with nursing and triage notes Were old charts reviewed (outside hosp., previous admission, EMS record, old EKG, old radiological studies, urgent care reports/EKG's, correction records)? Report findings @ -No old charts were reviewed Differential Diagnosis (chest pain, altered mental status, abdominal pain women, abdominal pain men, vaginal bleeding, weakness, fever, dyspnea, syncope, headache, dizziness, GI bleed, back pain, seizure, CVA, palpatations, mental health, musculoskeletal)? @ -Differential Abdominal Pain Women: Appendicitis, Cholecystitis, diverticulosis, ischemic bowel, pancreatitis, hepatitis, UTI, gastroenteritis, AAA, incarcerated hernia, bowel obstruction, constipation, inflammatory bowel, hepatitis, peptic ulcer disease, splenic infarction, perforated viscus, vulvitis, ovarian torsion, PID, kidney stone, p lacenta abruption, this is not meant to be an all-inclusive list EKG interpreted by me (3pts min.). @ -As above X-rays interpreted by me (1pt min.). @ -KUB shows no acute abnormality. Chest x-ray shows no acute abnormality. CT interpreted by me (1pt min.). @ -None done U/S interpreted by me (1pt. min.). @ -None done What testing was considered but not performed or refused? (CT, X-rays, U/S, labs )? Why? @ -None What meds were considered but not given or refused? Why? @ -None Did you discuss the management of the patient with other professionals (professionals i.e. VALDEZ Chen, MAIL ORDER CLERK, lab, RT, psych nurse, social services manager, lockstitch front edge tape sewer, teacher, workplace rehabilitation officer, director case)? Give summary @ -No Was smoking cessation discussed for >3mins.? @ -No Was critical care preformed (if so, how long)? @ -No Were there social determinants of health that impacted care today? How? (Homelessness, low income, unemployed, alcoholism, drug addiction, transportation, low edu. Level, literacy, decrease access to med. care, fpc, rehab)? @ -No Was there de-escalation of care discussed even if they declined (Discuss DNR or withdrawal of care, Hospice)? DNR status @ -No What co-morbidities impacted this encounter? (DM, HTN, Smoking, COPD, CAD, Cancer, CVA, ARF, Chemo, Hep., AIDS, mental health diagnosis, sleep apnea, morbid obesity)? @ -None Was patient admitted / discharged? Hospital course, mention meds given and route, prescriptions, significant lab abnormalities, going to OR and other pertinent info. @ -I went back and reevaluated the patient she was feeling better. Patient will follow-up with her primary medical care doctor Undiagnosed new problem with uncertain prognosis? @ -No Drug Therapy requiring intensive monitoring for toxicity (Heparin, Nitro, Insulin, Cardizem)? @ -No Were any procedures done? @ -No Diagnosis/symptom? @ -Gastroenteritis Acute, or Chronic, or Acute on Chronic? @ -Acute Uncomplicated (without systemic symptoms) or Complicated (systemic symptoms)? @ -Uncomplicated Side effects of treatment? @ -No Exacerbation, Progression, or Severe Exacerbation? @ -No Poses a threat to life or bodily function? How? (Chest pain, [place], [place], pneumonia, PE, COPD, DKA, ARF, appy, cholecystitis, CVA, Diverticulitis, Homicidal, Suicidal, threat to staff... and all critical care pts) @ -No - Lab Data Result diagrams: 10/03/23 10:07 10/03/23 10:07 Lab Results 10/03/23 10/03/23 10/03/23 Range/Units 10:07 10:07 10:07 WBC 10.8 H (3.8-10.6) k/uL RBC 4.98 (3.80-5.40) m/uL Hgb 14.1 (11.4-16.0) gm/dL Hct 43.9 (34.0-46.0) % MCV 88.1 (80.0-100.0) fL MCH 28.3 (25.0-35.0) pg MCHC 32.1 (31.0-37.0) g/dL RDW 12.9 (11.5-15.5) % Plt Count 407 (150-450) k/uL MPV 7.5 Neutrophils % 62 % Lymphocytes % 20 % Monocytes % 4 % Eosinophils % 12 % Basophils % 1 % Neutrophils # 6.7 (1.3-7.7) k/uL Lymphocytes # 2.2 (1.0-4.8) k/uL Monocytes # 0.5 (0-1.0) k/uL Eosinophils # 1.3 H (0-0.7) k/uL Basophils # 0.1 (0-0.2) k/uL Sodium 137 (137-145) mmol/L Potassium 3.6 (3.5-5.1) mmol/L Chloride 104 (98-107) mmol/L Carbon Dioxide 21 L (22-30) mmol/L Anion Gap 12 mmol/L BUN 5 L (7-17) mg/dL Creatinine 0.65 (0.52-1.04) mg/dL Est GFR (CKD-EPI)AfAm >90 (>60 ml/min/1.73 sqM) Est GFR (CKD-EPI)NonAf >90 (>60 ml/min/1.73 sqM) Glucose 143 H (74-99) mg/dL Plasma Lactic Acid Erik (0.7-2.0) mmol/L Calcium 9.7 (8.4-10.2) mg/dL Total Bilirubin 0.5 (0.2-1.3) mg/dL AST 44 H (14-36) U/L ALT 58 H (4-34) U/L Alkaline Phosphatase 160 H (38-126) U/L Troponin I (0.000-0.034) ng/mL Total Protein 7.4 (6.3-8.2) g/dL Albumin 4.4 (3.5-5.0) g/dL Amylase 47 (30-110) U/L Lipase 105 (23-300) U/L Urine Color Urine Appearance (Clear) Urine pH (5.0-8.0) Ur Specific [place] (1.001-1.035) Urine Protein (Negative) Urine Glucose (UA) (Negative) Urine Ketones (Negative) Urine Blood (Negative) Urine Nitrite (Negative) Urine Bilirubin (Negative) Urine Urobilinogen (<2.0) mg/dL Ur Leukocyte Esterase (Negative) Urine RBC (0-5) /hpf Urine WBC (0-5) /hpf Ur Squamous Epith Cells (0-4) /hpf Hyaline Casts (0-2) /lpf Urine Mucus (None) /hpf Urine HCG, Qual Not Detected (Not Detectd) 10/03/23 10/03/23 10/03/23 Range/Units 10:07 10:07 11:14 WBC (3.8-10.6) k/uL RBC (3.80-5.40) m/uL Hgb (11.4-16.0) gm/dL Hct (34.0-46.0) % MCV (80.0-100.0) fL MCH (25.0-35.0) pg MCHC (31.0-37.0) g/dL RDW (11.5-15.5) % Plt Count (150-450) k/uL MPV Neutrophils % % Lymphocytes % % Monocytes % % Eosinophils % % Basophils % % Neutrophils # (1.3-7.7) k/uL Lymphocytes # (1.0-4.8) k/uL Monocytes # (0-1.0) k/uL Eosinophils # (0-0.7) k/uL Basophils # (0-0.2) k/uL Sodium (137-145) mmol/L Potassium (3.5-5.1) mmol/L Chloride (98-107) mmol/L Carbon Dioxide (22-30) mmol/L Anion Gap mmol/L BUN (7-17) mg/dL Creatinine (0.52-1.04) mg/dL Est GFR (CKD-EPI)AfAm (>60 ml/min/1.73 sqM) Est GFR (CKD-EPI)NonAf (>60 ml/min/1.73 sqM) Glucose (74-99) mg/dL Plasma Lactic Acid Erik 1.5 (0.7-2.0) mmol/L Calcium (8.4-10.2) mg/dL Total Bilirubin (0.2-1.3) mg/dL AST (14-36) U/L ALT (4-34) U/L Alkaline Phosphatase (38-126) U/L Troponin I <0.012 (0.000-0.034) ng/mL Total Protein (6.3-8.2) g/dL Albumin (3.5-5.0) g/dL Amylase (30-110) U/L Lipase (23-300) U/L Urine Color Dark Yellow Urine Appearance Cloudy H (Clear) Urine pH 6.5 (5.0-8.0) Ur Specific [place] 1.032 (1.001-1.035) Urine Protein 2+ H (Negative) Urine Glucose (UA) Negative (Negative) Urine Ketones Trace H (Negative) Urine Blood Negative (Negative) Urine Nitrite Negative (Negative) Urine Bilirubin 1+ H (Negative) Urine Urobilinogen 4.0 (<2.0) mg/dL Ur Leukocyte Esterase Negative (Negative) Urine RBC 2 (0-5) /hpf Urine WBC 1 (0-5) /hpf Ur Squamous Epith Cells 6 H (0-4) /hpf Hyaline Casts 22 H (0-2) /lpf Urine Mucus Many H (None) /hpf Urine HCG, Qual (Not Detectd) Disposition Clinical Impression: Gastroenteritis Disposition: HOME SELF-CARE Instructions (If sedation given, give patient instructions): Gastroenteritis (ED) Is patient prescribed a controlled substance at d/c from ED?: No Referrals: Dary La MD [Primary Care Provider] - 1-2 days Time of Disposition: 12:01
[2023-10-03] MEDS: ONDANSETRON 4 MG/2 ML VIAL IVP STA (10:10)
[2023-10-03 10:30] LABS: Basophils # (A) 0.1 k/uL (0-0.2); Basophils % (A) 1 %; Eosinophils # (A) 1.3 k/uL (0-0.7); Eosinophils % (A) 12 %; HCT 43.9 % (34.0-46.0); HGB 14.1 gm/dL (11.4-16.0); Lymphocytes # (A) 2.2 k/uL (1.0-4.8); Lymphocytes % (A) 20 %; MCH 28.3 pg (25.0-35.0); MCHC 32.1 g/dL (31.0-37.0); MCV 88.1 fL (80.0-100.0); Mean Platelet Volume 7.5; Monocytes # (A) 0.5 k/uL (0-1.0); Monocytes % (A) 4 %; Neutrophils # (A) 6.7 k/uL (1.3-7.7); Neutrophils % (A) 62 %; Platelet Count 407 k/uL (150-450); RBC 4.98 m/uL (3.80-5.40); RDW 12.9 % (11.5-15.5); WBC 10.8 k/uL (3.8-10.6)
--- NOTE | 2023-10-03 10:45 | XR ---
EXAMINATION TYPE: XR chest 2V DATE OF EXAM: 10/03/2023 10:22 AM CLINICAL INDICATION:Female, 42 years old with history of abdominal pain; [facility] COMPARISON: 09/08/2023 CT chest and chest x-ray TECHNIQUE: XR chest 2V. Frontal and lateral views of the chest.. FINDINGS: Lines/Tubes/Devices: No indwelling lines are seen. Heart/mediastinum: Heart size is normal. Mediastinum appears normal. Pulmonary vascularity: Not increased, Lungs/Pleura: There is no evidence of pleural effusion, focal consolidation, or pneumothorax. Hazy o pacity over the lung bases likely from overlying soft tissue attenuation. Musculoskeletal: No acute osseous abnormality demonstrated in the limits of the exam. Mild degenerat alem changes, including changes the anterior first rib ends causing nodular opacities over the lungs. Mild deformities of right ribs compatible with old healed fractures. Other findings: None. IMPRESSION: No acute cardiopulmonary abnormality.
[2023-10-03] MEDS: PANTOPRAZOLE 40 MG/10 ML VIAL IVP STA (10:46)
[2023-10-03 10:47] LABS: ALT 58 U/L (4-34); AST 44 U/L (14-36); African American GFR (CKD) >90 (>60 ml/min/1.73 sqM); Albumin 4.4 g/dL (3.5-5.0); Alkaline Phosphatase 160 U/L (38-126); Amylase 47 U/L (30-110); Anion Gap 12 mmol/L; Blood Urea Nitrogen 5 mg/dL (7-17); Calcium 9.7 mg/dL (8.4-10.2); Carbon Dioxide 21 mmol/L (22-30); Chloride 104 mmol/L (98-107); Glucose 143 mg/dL (74-99); Lipase 105 U/L (23-300); Non-African American GFR(CKD) >90 (>60 ml/min/1.73 sqM); Potassium 3.6 mmol/L (3.5-5.1); Sodium 137 mmol/L (137-145); Total Bilirubin 0.5 mg/dL (0.2-1.3); Total Protein 7.4 g/dL (6.3-8.2)
[2023-10-03] MEDS: SODIUM CHLORIDE 0.9% 500 ML 500 ML IV STA (10:47)
--- NOTE | 2023-10-03 10:49 | XR ---
EXAMINATION TYPE: XR KUB DATE OF EXAM: 10/03/2023 10:22 AM CLINICAL INDICATION:Female, 42 years old with history of abdominal pain; [facility] COMPARISON: None. TECHNIQUE: Supine radiographic view/s of the abdomen/pelvis obtained. FINDINGS: Exam is limited by patient body habitus. The bowel gas pattern is nonspecific, likely nonobstructive without dilated loops of small or large b owel. Small volume fecal material and gas are demonstrated throughout the colon. No gross evidence of organomegaly. No evidence of pneumoperitoneum in the limitations of supine technique. No pathologic calcifications are seen. Osseous structures appear grossly intact with mild degenerative changes see n. Surgical clip in the right pelvis likely from tubal ligation. IMPRESSION: Nonspecific, likely nonobstructive bowel gas pattern. If concern persists, consider follow-up radiogr aphs and/or CT.
[2023-10-03 11:50] LABS: Appearance,Urine Cloudy (Clear); Bilirubin,Urine 1+ (Negative); Blood,Urine Negative (Negative); Color,Urine Dark Yellow; Glucose,Urine (UA) Negative (Negative); Hyaline Casts,Urine 22 /lpf (0-2); Ketones,Urine Trace (Negative); Leukocyte Esterase,Urine Negative (Negative); Mucus,Urine Many /hpf; Nitrite,Urine Negative (Negative); PH, Urine 6.5 (5.0-8.0); Protein,Urine 2+ (Negative); RBC,Urine 2 /hpf (0-5); Specific Gravity,Urine 1.032 (1.001-1.035); Squamous Epithelial Cell,Urine 6 /hpf (0-4); WBC,Urine 1 /hpf (0-5)
[2023-10-03] MEDS: ONDANSETRON 4 MG ODT STARTER PACK 2 TAB BTL PO STA (12:14)
[2023-10-03 12:35] VITALS: BP 132/89; PULSE 92
== END 2023-10-03 12:18 | disposition home or self-care (01) ==
LOC: EC 09:36
DX: K52.9 Noninfective gastroenteritis and colitis, unspecified (principal); F41.9 Anxiety disorder, unspecified; F32.A Depression, unspecified; F17.290 Nicotine dependence, other tobacco product, uncomplicated; F12.90 Cannabis use, unspecified, uncomplicated; Z79.899 Other long term (current) drug therapy; Z88.1 Allergy status to other antibiotic agents; Z86.711 Personal history of pulmonary embolism; Z90.49 Acquired absence of other specified parts of digestive tract
CPT/HCPCS: 36415; 93005; 80053; 82150; 83605; 83690; 84484; 85025; 81001; 81025; 71046; 74018; 99284; 96374; 96375; 96361; J2405; S0119; C9113

== ENCOUNTER 2023-10-04 06:54 | Emergency (ER) | payer OTHER ==
--- NOTE | 2023-10-04 07:18 | ED ---
Skin/Abscess/FB HPI - General Chief complaint: Skin/Abscess/Foreign Body Stated complaint: Rash Time Seen by Provider: 10/04/23 07:17 Source: patient Mode of arrival: ambulatory Limitations: no limitations - History of Present Illness Initial comments: Patient is a 42-year-old female presented to the ER with a chief complaint of a rash. She reports she woke up this morning to a rash on her lower abdomen, inner thighs, and hairline. She states the johnny is burning and itchy. She states she recently started taking dimethyl fumarate for MS. She states she stopped a couple of days ago. Denies any new foods, lotions, soaps, clothing. Denies any difficulty breathing, shortness of breath, chest pain, abdominal pain, constipation/diarrhea, urinary complaints or peripheral edema. - Related Data Home Medications Medication Instructions Recorded Confirmed Propranolol [Inderal] 20 mg PO BID 07/08/23 09/08/23 hydrOXYzine pamoate [Vistaril] 50 mg PO BID PRN 09/08/23 09/08/23 Previous Rx's Medication Instructions Recorded DULoxetine HCL [Cymbalta] 60 mg PO BID 14 Days #28 cap 12/26/22 [place] Carbonate ER [Lithobid] 450 mg PO DAILY 14 Days #14 tab 12/26/22 busPIRone HCL [Buspar] 30 mg PO BID 14 Days #28 tablet 12/26/22 traZODone HCL [Desyrel] 100 mg PO HS 14 Days #14 tab 12/26/22 Pantoprazole Sodium [Protonix] 40 mg PO DAILY #30 tab 07/11/23 Azithromycin [Zithromax] 250 mg PO DIRECTED 5 Days #6 tab 09/08/23 predniSONE 50 mg PO DAILY 5 Days #5 tab 09/08/23 Allergies Allergy/AdvReac Type Severity Reaction Status Date / Time vancomycin Allergy Severe Rash/Hives, Verified 10/03/23 09:40 itching, burning Review of Systems ROS Statement: Those systems with pertinent positive or pertinent negative responses have been documented in the HPI. ROS Other: All systems not noted in ROS Statement are negative. Past Medical History Past Medical History: Blood Disorder, Eye Disorder, Neurologic Disorder, Pulmonary Embolus (PE), Rheumatoid Arthritis (RA), Vascular Disorder Additional Past Medical History / Comment(s): MS, optic neuritis, PE/pt cannot recall laterallity, aortic calcification, chronic low back pain/bulging discs, possible ventral hernia, past meth abuse/clean for 28 months. EXPLOSIVE DIARRHEA History of Any Multi-Drug Resistant Organisms: MRSA Date of last positivie culture/infection: 04/09/22 MDRO Source:: Buttock Past Surgical History: Appendectomy Additional Past Surgical History / Comment(s): ectopic (2/ L fallopian tube rupture with surgery, R labia abscess/I&D Past Anesthesia/Blood Transfusion Reactions: No Reported Reaction Past Psychological History: Anxiety, Depression Smoking Status: Former smoker, Vaper Past Alcohol Use History: Rare Past Drug Use History: Marijuana - Past Family History Father Family Medical History: No Reported History Mother History Unknown: Yes General Exam Limitations: no limitations General appearance: alert, in no apparent distress Head exam: Present: atraumatic, normocephalic, normal inspection Eye exam: Present: normal appearance, PERRL, EOMI. Absent: scleral icterus, conjunctival injection, periorbital swelling Respiratory exam: Present: normal lung sounds bilaterally. Absent: respiratory distress, wheezes, rales, rhonchi, stridor Cardiovascular Exam: Present: regular rate, normal rhythm, normal heart sounds. Absent: systolic murmur, diastolic murmur, rubs, gallop, clicks GI/Abdominal exam: Present: soft, normal bowel sounds. Absent: distended, tenderness, guarding, rebound, rigid Neurological exam: Present: alert, oriented X3, CN II-XII intact Psychiatric exam: Present: normal affect, normal mood Skin exam: Present: urticaria (Area over lower abdomen, inner thighs and posterior hairline) Course Vital Signs 10/04/23 06:55 Temperature 97.8 F Pulse Rate 114 H Respiratory 18 Rate Blood Pressure 141/82 O2 Sat by Pulse 98 Oximetry Medical Decision Making - Medical Decision Making Was pt. sent in by a medical professional or institution (, PA, POLISHING WHEEL REPAIRER, urgent c are, hospital, or [place] health care facility...) When possible be specific @ -No Did you speak to anyone other than the patient for history (EMS, parent, family, police, friend...)? What history was obtained from this source @ -No Did you review nursing and triage notes (agree or disagree)? Why? @ -I reviewed and agree with nursing and triage notes Were old charts reviewed (outside hosp., previous admission, EMS record, old EKG, old radiological studies, urgent care reports/EKG's, [place] health [facility] facility records)? Report findings @ -Yes, I reviewed ER visit from 10/03/23, emperatriz seen in ER for abdominal pain and discharged. Differential Diagnosis (chest pain, altered mental status, abdominal pain women, abdominal pain men, vaginal bleeding, weakness, fever, dyspnea, syncope, headache, dizziness, GI bleed, back pain, seizure, CVA, palpatations, mental health, musculoskeletal)? @ -Cellulitis, Uticaria, abrasion, laceration, measles, chickenpox, shingles this list on it to be all-inclusive EKG interpreted by me (3pts min.). @ -None X-rays interpreted by me (1pt min.). @ -None done CT interpreted by me (1pt min.). @ -None done U/S interpreted by me (1pt. min.). @ -None done What testing was considered but not performed or refused? (CT, X-rays, U/S, labs)? Why? @ -None What meds were considered but not given or refused? Why? @ -None Did you discuss the management of the patient with other professionals (professionals i.e. , PA, POLISHING WHEEL REPAIRER, lab, RT, psych nurse, health care social worker, district agent, teacher, chief technical officer, employment case manager)? Give summary @ -No Was smoking cessation discussed for >3mins.? @ -No Was critical care preformed (if so, how long)? @ -No Were there social determinants of health that impacted care today? How? (Homelessness, low income, unemployed, alcoholism, drug addiction, transp ortation, low edu. Level, literacy, decrease access to med. care, retirement, rehab)? @ -No Was there de-escalation of care discussed even if they declined (Discuss DNR or withdrawal of care, Hospice)? DNR status @ -No What co-morbidities impacted this encounter? (DM, HTN, Smoking, COPD, CAD, Cancer, CVA, ARF, Chemo, Hep., AIDS, mental health diagnosis, sleep apnea, morbid obesity)? @ -MS Was patient admitted / discharged? Hospital course, mention meds given and route, prescriptions, significant lab abnormalities, going to OR and other pertinent info. @ -Discharge. Patient is a 42-year-old female presented to the ER with chief complaint of rash. Patient seen here yesterday for abdominal pain. Patient reports this has since resolved. History and physical exam completed. Vitals stable. Patient no signs acute distress and nontoxic-appearing. Uticaria over the lower abdomen, inner thighs, posterior scalp. No signs of of anaphylaxis. Patient received IM Benadryl. I advised her to continue taking Benadryl and use [id number] hydrocortisone cream. Return parameters discussed. Patient discharged stable condition with follow-up to PCP. Patient expressed understanding and agreement with care plan. Undiagnosed new problem with uncertain prognosis? @ -No Drug Therapy requiring intensive monitoring for toxicity (Heparin, Nitro, Insulin, Cardizem)? @ -No Were any procedures done? @ -No Diagnosis/symptom? @ -Urticaria Acute, or Chronic, or Acute on Chronic? @ -Acute Uncomplicated (without systemic symptoms) or Complicated (systemic symptoms)? @ -Uncomplicated Side effects of treatment? @ -No Exacerbation, Progression, or Severe Exacerbation? @ -No Poses a threat to life or bodily function? How? (Chest pain, [place], [place], pneumonia, PE, COPD, DKA, ARF, appy, cholecystitis, CVA, Diverticulitis, Homicidal, Suicidal, threat to staff... and all critical care pts) @ -No Disposition Clinical Impression: Acute urticaria Disposition: HOME SELF-CARE Condition: Stable Instructions (If sedation given, give patient instructions): Urticaria (ED) Additional Instructions: Continue to take OTC benadryl and hydrocortisone cream for symptoms relief. Follow-up with PCP. Return to the ER for any new or worsening symptoms. Is patient prescribed a controlled substance at d/c from ED?: No Referrals: Dary La MD [Primary Care Provider] - 1-2 days Time of Disposition: 07:18
[2023-10-04] MEDS: diphenhydrAMINE 50 MG/ML 1 ML VIAL IM STA (07:22)
[2023-10-04 07:49] VITALS: BP 141/82; PULSE 114; RESP 18; TEMP 97.8
== END 2023-10-04 07:28 | disposition home or self-care (01) ==
LOC: EC 06:54
DX: L50.9 Urticaria, unspecified (principal)
CPT/HCPCS: 99283 ×2; 96372 ×2; J1200

== ENCOUNTER → 2023-12-29 | Outpatient (CLI) | payer OTHER ==
--- NOTE | 2023-12-29 14:01 | XR ---
EXAMINATION TYPE: XR lumbosacral spine min 4V DATE OF EXAM: 12/29/2023 CLINICAL HISTORY: pain COMPARISON: NONE TECHNIQUE: Frontal, lateral, and oblique images of the lumbar spine are obtained. FINDINGS: There are 5 lumbar type vertebral bodies identified. The lumbar spine shows satisfactory alignment without evidence of acute fracture or dislocation. Vertebral body heights are within normal limits. Disc spaces are well preserved. The overlying soft tissue appears unremarkable. IMPRESSION: No acute fracture or dislocation is seen in the lumbar spine.ICD 10 NO FRACTURE, INITIAL EVALUATION
--- NOTE | 2023-12-29 14:02 | XR ---
EXAMINATION TYPE: XR sacroiliac joint comp BILAT DATE OF EXAM: 12/29/2023 COMPARISON: NONE HISTORY: Lower back pain TECHNIQUE: 3 views of the sacroiliac joints are obtained. FINDINGS: The sacroiliac joints are symmetric. There is no evidence for abnormal sclerosis or widenin g. Sacral alae and sacrum appear unremarkable. IMPRESSION: Negative
== END | disposition home or self-care (01) ==
LOC: RADXRMAIN 12:07
PROVIDERS: ATTEND Family Medicine
DX: M54.41 Lumbago with sciatica, right side (principal); G89.29 Other chronic pain
CPT/HCPCS: 72110; 72202

== ENCOUNTER → 2023-12-29 | Outpatient (CLI) | payer OTHER ==
[2023-12-29 14:59] LABS: ALT 37 U/L (8-44); AST 29 U/L (13-35); Albumin 4.3 g/dL (3.8-4.9); Albumin/Globulin Ratio 1.72 Ratio (1.60-3.17); Alkaline Phosphatase 118 U/L (41-126); BUN/Creat Ratio 12.38 Ratio (12.00-20.00); Blood Urea Nitrogen 9.9 mg/dL (9.0-27.0); Calcium 9.2 mg/dL (8.7-10.3); Carbon Dioxide 20.8 mmol/L (21.6-31.8); Chloride 104 mmol/L (96-109); Globulin 2.5 g/dL (1.6-3.3); Glucose 130 mg/dL (70-110); Potassium 4.3 mmol/L (3.5-5.5); Sodium 138 mmol/L (135-145); Total Bilirubin 0.4 mg/dL (0.3-1.2); Total Protein 6.8 g/dL (6.2-8.2)
== END | disposition home or self-care (01) ==
LOC: LABWHC1 11:52
PROVIDERS: ATTEND Internal Medicine Gastroenterology
DX: R74.01 Elevation of levels of liver transaminase levels (principal)
CPT/HCPCS: 36415; 80053; 81596

== ENCOUNTER 2024-02-25 17:47 | Emergency (ER) | payer OTHER | END 2024-02-25 18:59 | disposition home or self-care (01) | LOC: EC 17:47 | CPT/HCPCS: 99282 ==

== ENCOUNTER 2024-03-13 12:03 | Emergency (ER) | payer OTHER ==
[2024-03-13 12:13] VITALS: TEMP 97.8
[2024-03-13] MEDS: SODIUM CHLORIDE 0.9% 1,000 ML IV STA (13:07)
[2024-03-13] MEDS: KETOROLAC 15 MG/ML 1 ML VIAL IVP STA (13:08)
[2024-03-13 13:20] LABS: Basophils # (A) 0.1 k/uL (0-0.2); Basophils % (A) 1 %; Eosinophils # (A) 0.3 k/uL (0-0.7); Eosinophils % (A) 4 %; HCT 37.5 % (34.0-46.0); HGB 12.4 gm/dL (11.4-16.0); Lymphocytes # (A) 2.3 k/uL (1.0-4.8); Lymphocytes % (A) 27 %; MCH 28.3 pg (25.0-35.0); MCHC 33.1 g/dL (31.0-37.0); MCV 85.6 fL (80.0-100.0); Mean Platelet Volume 7.7; Monocytes # (A) 0.6 k/uL (0-1.0); Monocytes % (A) 7 %; Neutrophils # (A) 5.1 k/uL (1.3-7.7); Neutrophils % (A) 60 %; Platelet Count 318 k/uL (150-450); RBC 4.38 m/uL (3.80-5.40); RDW 13.2 % (11.5-15.5); WBC 8.4 k/uL (3.8-10.6)
--- NOTE | 2024-03-13 13:27 | ED ---
General Adult HPI - General Chief complaint: Chest Pain Stated complaint: Chest pain Time Seen by Provider: 03/13/24 12:45 Source: patient, RN notes reviewed, old records reviewed Mode of arrival: ambulatory Limitations: no limitations - History of Present Illness Initial comments: Patient is a 43-year-old female presents emergency department complaining of chest pain. Symptoms have been ongoing for 3 days. Seems to mostly be associated with movement as it is located over the left side of her chest with some radiation to the left shoulder where she does have a history of chronic rotator cuff issues. It is provoked with movement of the left arm as well as torso and with lifting. However patient does have a history of PE. Is not cer tain what is causing her current symptoms. No cardiac history. No stents. Presents for further evaluation at this time. Denies any shortness of breath. Denies any nausea or vomiting. He is no longer on blood thinners for her previous PE. Denies any lower extremity edema or pain. Denies any fevers, chills, sick contacts. No cough. Presents for further evaluation at this time. - Related Data Home Medications Medication Instructions Recorded Confirmed Propranolol [Inderal] 20 mg PO BID 07/08/23 09/08/23 hydrOXYzine pamoate [Vistaril] 50 mg PO BID PRN 09/08/23 09/08/23 Previous Rx's Medication Instructions Recorded DULoxetine HCL [Cymbalta] 60 mg PO BID 14 Days #28 cap 12/26/22 [place] Carbonate ER [Lithobid] 450 mg PO DAILY 14 Days #14 tab 12/26/22 busPIRone HCL [Buspar] 30 mg PO BID 14 Days #28 tablet 12/26/22 traZODone HCL [Desyrel] 100 mg PO HS 14 Days #14 tab 12/26/22 Pantoprazole Sodium [Protonix] 40 mg PO DAILY #30 tab 07/11/23 Azithromycin [Zithromax] 250 mg PO DIRECTED 5 Days #6 tab 09/08/23 predniSONE 50 mg PO DAILY 5 Days #5 tab 09/08/23 Cyclobenzaprine [Flexeril] 5 mg PO TID PRN 5 Days #15 tablet 03/13/24 Allergies Allergy/AdvReac Type Severity Reaction Status Date / Time vancomycin Allergy Severe Rash/Hives, Verified 03/13/24 12:11 itching, burning Review of Systems ROS Statement: Those systems with pertinent positive or pertinent negative responses have been documented in the HPI. Review of Systems: CONST: Denies fever EYES: Denies blurry vision ENT: Denies nasal congestion C/V: Endorses chest pain/chest wall pain. RESP: Denies shortness of breath GI: Denies abdominal pain : Denies dysuria SKIN: Denies rash. MSK: Denies joint pain. NEURO: Denies headache ROS Other: All systems not noted in ROS Statement are negative. Past Medical History Past Medical History: Blood Disorder, Eye Disorder, Neurologic Disorder, Pulmonary Embolus (PE), Rheumatoid Arthritis (RA), Vascular Disorder Additional Past Medical History / Comment(s): MS, optic neuritis, PE/pt cannot recall laterallity, aortic calcification, chronic low back pain/bulging discs, possible ventral hernia, past meth abuse/clean for 28 months. EXPLOSIVE DIARRHEA History of Any Multi-Drug Resistant Organisms: MRSA Date of last positivie culture/infection: 04/09/22 MDRO Source:: Buttock Past Surgical History: Appendectomy Additional Past Surgical History / Comment(s): ectopic (2/ L fallopian tube rupture with surgery, R labia abscess/I&D Past Anesthesia/Blood Transfusion Reactions: No Reported Reaction Past Psychological History: Anxiety, Depression Smoking Status: Former smoker, Vaper Past Alcohol Use History: Rare Past Drug Use History: Marijuana - Past Family History Father Family Medical History: No Reported History Mother History Unknown: Yes General Exam - General Exam Comments Initial Comments: General: Appears in no acute distress. HEAD: Normal with no signs of head trauma. EYES: PERRLA, EOMI, conjunctiva normal, no discharge. ENT: Hearing grossly intact, normal oropharynx. RESPIRATORY: Clear breath sounds bilaterally. No wheezes, rales, or rhonchi. C/V: Regular rate and rhythm. S1 and S2 auscultated, no edema, peripheral pulses 2+ and intact throughout ABD: Abd is soft, nontender, nondistended EXT: Normal range of motion, no obvious deformity. Chest pain is reproducible on palpation and with movement over the left chest. SKIN: No rashes or lesions observed on exposed skin. NEURO: Alert and oriented x 4. Limitations: no limitations Course Vital Signs 03/13/24 03/13/24 03/13/24 12:11 12:54 14:48 Temperature 97.8 F Pulse Rate 90 76 82 Pulse Rate [ 76 Cathode Maker ] Respiratory 16 18 18 Rate Blood Pressure 143/85 114/75 O2 Sat by Pulse 96 96 96 Oximetry 03/13/24 03/13/24 16:15 17:52 Temperature Pulse Rate 85 107 H Pulse Rate [ Cathode Maker ] Respiratory 18 20 Rate Blood Pressure 109/68 107/82 O2 Sat by Pulse 98 96 Oximetry Medical Decision Making - Medical Decision Making Was pt. sent in by a medical professional or institution (, PA, TALENT PROGRAM MANAGER, urgent care, hospital, or [place] health care facility...) When possible be specific @ -No Did you speak to anyone other than the patient for history (EMS, parent, family, police, friend...)? What history was obtained from this source @ -No Did you review nursing and triage notes (agree or disagree)? Why? @ -I reviewed and agree with nursing and triage notes Were old charts reviewed (outside hosp., previous admission, EMS record, old EKG, old radiological studies, urgent care reports/EKG's, [place] [facility] facility records)? Report findings @ -Due to computer issues, unable to evaluate old EKGs. Differential Diagnosis (chest pain, altered mental status, abdominal pain women, abdominal pain men, vaginal bleeding, weakness, fever, dyspnea, syncope, headache, dizziness, GI bleed, back pain, seizure, CVA, palpatations, mental health, musculoskeletal)? @ -Differential Chest Pain: Stable Angina, Unstable Angina, STEMI, NSTEMI Aortic Dissection, Pneumothorax, Musculoskeletal, Esophageal Spasm GERD, Cholecystitis, Pancreatitis, Zoster, this is not meant to be an all-inclusive list. EKG interpreted by me (3pts min.). @ -As above X-rays interpreted by me (1pt min.). @ -None done CT interpreted by me (1pt min.). @ -CT chest for PE negative for pulmonary embolism. U/S interpreted by me (1pt. min.). @ -Bilateral lower extremity ultrasounds negative for DVT. What testing was considered but not performed or refused? (CT, X-rays, U/S, labs)? Why? @ -None What meds were considered but not given or refused? Why? @ -None Did you discuss the management of the patient with other professionals (professionals i.e. , PA, TALENT PROGRAM MANAGER, lab, RT, psych nurse, psychotherapist social worker, odd bundle worker, teacher, district resource officer, ed case manager)? Give summary @ -No Was smoking cessation discussed for >3mins.? @ -No Was critical care preformed (if so, how long)? @ -No Were there social determinants of health that impacted care today? How? (Homelessness, low income, unemployed, alcoholism, drug addiction, transportation, low edu. Level, literacy, decrease access to med. care, correction, rehab)? @ -No Was there de-escalation of care discussed even if they declined (Discuss DNR or withdrawal of care, Hospice)? DNR status @ -No What co-morbidities impacted this encounter? (DM, HTN, Smoking, COPD, CAD, Cancer, CVA, ARF, Chemo, Hep., AIDS, mental health diagnosis, sleep apnea, morb id obesity)? @ -Prior history of PE. Was patient admitted / discharged? Hospital course, mention meds given and route, prescriptions, significant lab abnormalities, going to OR and other pertinent info. @ -Based on the patient's presentation and physical exam, presents with somewhat atypical chest pain/chest wall pain. Has been ongoing for 3 days. Vitals are within acceptable limits. Does have a history of PE. Discussed with the patient and she states her D-dimer is always elevated. The I did offer to right away just obtain the CT angiogram which she was in agreement with any of us obtain cardiopulmonary workup otherwise. Does seem to be more chest wall pain patient will be given IV Toradol as well as IV fluids at this time. Patient was in agreement this plan. Vital signs within acceptable limits. EKG shows no signs of acute ischemia.Initial labs remarkable for elevated D-dime r of 1.81. Remainder the initial labs unremarkable. Troponin undetectable. On reevaluation, patient is feeling improved. I did offer muscle relaxer which she had accepted. CT imaging returned negative for PE. Ultrasounds negative for DVT. At this time I did discuss with the patient admission versus discharge. She Milic to go home. She will wait for an additional EKG as well as repeat troponin. Patient agreement this plan. Repeat troponin remains undetectable. EKG shows no dynamic changes. On reevaluation, patient is asymptomatic. She would like to go home. I believe this is reasonable. Patient be discharged home at this time. Strict return precautions discussed. I will provide the patient with a prescription for Flexeril. I instructed the patient to follow up with their PCP in the next 1-3 days.. I explained that the patient should return to the emergency department if they experience any worsening symptoms. Strict return precautions were discussed with the patient. The patient expressed understanding of these instructions. I answered all questions that the patient had. The patient was discharged home in good condition with their prescriptions and follow up information. Undiagnosed new problem with uncertain prognosis? @ -No Drug Therapy requiring intensive monitoring for toxicity (Heparin, Nitro, Insulin, Cardizem)? @ -No Were any procedures done? @ -No Diagnosis/symptom? @ -Chest wall pain Acute, or Chronic, or Acute on Chronic? @ -Acute Uncomplicated (without systemic symptoms) or Complicated (systemic symptoms)? @ -Uncomplicated Side effects of treatment? @ -None Exacerbation, Progression, or Severe Exacerbation] @ -No Poses a threat to life or bodily function? @ -Unlikely - Lab Data Result diagrams: 03/13/24 13:02 03/13/24 13:02 Lab Results 03/13/24 03/13/24 03/13/24 Range/Units 13:02 13:02 13:02 WBC 8.4 (3.8-10.6) k/uL RBC 4.38 (3.80-5.40) m/uL Hgb 12.4 (11.4-16.0) gm/dL Hct 37.5 (34.0-46.0) % MCV 85.6 (80.0-100.0) fL MCH 28.3 (25.0-35.0) pg MCHC 33.1 (31.0-37.0) g/dL RDW 13.2 (11.5-15.5) % Plt Count 318 (150-450) k/uL MPV 7.7 Neutrophils % 60 % Lymphocytes % 27 % Monocytes % 7 % Eosinophils % 4 % Basophils % 1 % Neutrophils # 5.1 (1.3-7.7) k/uL Lymphocytes # 2.3 (1.0-4.8) k/uL Monocytes # 0.6 (0-1.0) k/uL Eosinophils # 0.3 (0-0.7) k/uL Basophils # 0.1 (0-0.2) k/uL PT 10.5 (10.0-12.5) sec INR 0.9 (<1.2) APTT 23.5 (22.0-30.0) sec D-Dimer 1.81 H (<0.60) mg/L FEU Sodium 133 L (137-145) mmol/L Potassium 3.9 (3.5-5.1) mmol/L Chloride 104 (98-107) mmol/L Carbon Dioxide 21 L (22-30) mmol/L Anion Gap 8 mmol/L BUN 14 (7-17) mg/dL Creatinine 0.61 (0.52-1.04) mg/dL Est GFR (CKD-EPI)AfAm >90 (>60 ml/min/1.73 sqM) Est GFR (CKD-EPI)NonAf >90 (>60 ml/min/1.73 sqM) Glucose 105 H (74-99) mg/dL Calcium 9.5 (8.4-10.2) mg/dL Magnesium 2.1 (1.6-2.3) mg/dL Total Bilirubin 0.8 (0.2-1.3) mg/dL AST 44 H (14-36) U/L ALT 39 H (4-34) U/L Alkaline Phosphatase 105 (38-126) U/L Troponin I (0.000-0.034) ng/mL NT-Pro-B Natriuret Pep 52 pg/mL Total Protein 6.7 (6.3-8.2) g/dL Albumin 4.1 (3.5-5.0) g/dL Urine Color Urine Appearance (Clear) Urine pH (5.0-8.0) Ur Specific [place] (1.001-1.035) Urine Protein (Negative) Urine Glucose (UA) (Negative) Urine Ketones (Negative) Urine Blood (Negative) Urine Nitrite (Negative) Urine Bilirubin (Negative) Urine Urobilinogen (<2.0) mg/dL Ur Leukocyte Esterase (Negative) 03/13/24 03/13/24 03/13/24 Range/Units 13:02 14:16 16:12 WBC (3.8-10.6) k/uL RBC (3.80-5.40) m/uL Hgb (11.4-16.0) gm/dL Hct (34.0-46.0) % MCV (80.0-100.0) fL MCH (25.0-35.0) pg MCHC (31.0-37.0) g/dL RDW (11.5-15.5) % Plt Count (150-450) k/uL MPV Neutrophils % % Lymphocytes % % Monocytes % % Eosinophils % % Basophils % % Neutrophils # (1.3-7.7) k/uL Lymphocytes # (1.0-4.8) k/uL Monocytes # (0-1.0) k/uL Eosinophils # (0-0.7) k/uL Basophils # (0-0.2) k/uL PT (10.0-12.5) sec INR (<1.2) APTT (22.0-30.0) sec D-Dimer (<0.60) mg/L FEU Sodium (137-145) mmol/L Potassium (3.5-5.1) mmol/L Chloride (98-107) mmol/L Carbon Dioxide (22-30) mmol/L Anion Gap mmol/L BUN (7-17) mg/dL Creatinine (0.52-1.04) mg/dL Est GFR (CKD-EPI)AfAm (>60 ml/min/1.73 sqM) Est GFR (CKD-EPI)NonAf (>60 ml/min/1.73 sqM) Glucose (74-99) mg/dL Calcium (8.4-10.2) mg/dL Magnesium (1.6-2.3) mg/dL Total Bilirubin (0.2-1.3) mg/dL AST (14-36) U/L ALT (4-34) U/L Alkaline Phosphatase (38-126) U/L Troponin I <0.012 <0.012 (0.000-0.034) ng/mL NT-Pro-B Natriuret Pep pg/mL Total Protein (6.3-8.2) g/dL Albumin (3.5-5.0) g/dL Urine Color Yellow Urine Appearance Clear (Clear) Urine pH 6.0 (5.0-8.0) Ur Specific [place] 1.040 H (1.001-1.035) Urine Protein Trace H (Negative) Urine Glucose (UA) Negative (Negative) Urine Ketones 1+ H (Negative) Urine Blood Negative (Negative) Urine Nitrite Negative (Negative) Urine Bilirubin Negative (Negative) Urine Urobilinogen <2.0 (<2.0) mg/dL Ur Leukocyte Esterase Negative (Negative) - EKG Data -: EKG Interpreted by Me EKG Comments: 12-lead Electrocardiogram Interpretation Note EKG was reviewed and interpreted by myself. 12-lead ECG performed at 1252 is interpreted by me as normal sinus rhythm at a rate of 73 beats per minute. revealing axis is normal. IA interval is 162 ms, QRS durations 82 ms, QTc is 413 ms. Isolated T wave inversion in lead III. There were no ST or T wave abnormalities to suggest myocardial ischemia or injury. R wave progression across the precordium was satisfactory. By my interpretation this EKG is non- diagnostic for acute ischemia. 12-lead Electrocardiogram Interpretation Note EKG was reviewed and interpreted by myself. 12-lead ECG performed at 1615 is interpreted by me as revealing normal sinus rhythm at a rate of 73 beats per minute. [place] is normal. IA interval is 140 ms, QRS durations 85 ms, QTc is 443 ms.. There were no ST or T wave abnormalities to suggest myocardial ischemia or injury. R wave progression across the precordium was satisfactory. By my interpretation this EKG is non-diagnostic for acute ischemia. No dynamic changes Disposition Clinical Impression: Chest wall pain Disposition: HOME SELF-CARE Condition: Good Instructions (If sedation given, give patient instructions): Chest Wall Pain (ED) Prescriptions: Cyclobenzaprine [Flexeril] 5 mg PO TID PRN 5 Days #15 tablet PRN Reason: Pain Is patient prescribed a controlled substance at d/c from ED?: No Referrals: Dary La MD [Primary Care Provider] - 1-2 days Time of Disposition: 17:25
[2024-03-13 13:30] LABS: ALT 39 U/L (4-34); AST 44 U/L (14-36); African American GFR (CKD) >90 (>60 ml/min/1.73 sqM); Albumin 4.1 g/dL (3.5-5.0); Alkaline Phosphatase 105 U/L (38-126); Anion Gap 8 mmol/L; Blood Urea Nitrogen 14 mg/dL (7-17); Calcium 9.5 mg/dL (8.4-10.2); Carbon Dioxide 21 mmol/L (22-30); Chloride 104 mmol/L (98-107); Glucose 105 mg/dL (74-99); Magnesium 2.1 mg/dL (1.6-2.3); Non-African American GFR(CKD) >90 (>60 ml/min/1.73 sqM); Potassium 3.9 mmol/L (3.5-5.1); Sodium 133 mmol/L (137-145); Total Bilirubin 0.8 mg/dL (0.2-1.3); Total Protein 6.7 g/dL (6.3-8.2)
[2024-03-13 13:38] LABS: NT-Pro-B-Type Natriuretic Pept 52 pg/mL
[2024-03-13 14:00] LABS: INR 0.9 (<1.2); Partial Thromboplastin Time 23.5 sec (22.0-30.0); Prothrombin Time 10.5 sec (10.0-12.5)
[2024-03-13 14:26] LABS: Appearance,Urine Clear (Clear); Bilirubin,Urine Negative (Negative); Blood,Urine Negative (Negative); Color,Urine Yellow; Glucose,Urine (UA) Negative (Negative); Ketones,Urine 1+ (Negative); Leukocyte Esterase,Urine Negative (Negative); Nitrite,Urine Negative (Negative); Protein,Urine Trace (Negative); Urobilinogen,Urine <2.0 mg/dL (<2.0)
--- NOTE | 2024-03-13 15:08 | CT ---
EXAMINATION TYPE: CT chest angio for PE DATE OF EXAM: 03/13/2024 COMPARISON: 09/08/2023 HISTORY: 43-year-old female chest pain and shortness of breath TECHNIQUE: Contiguous axial scanning of the chest performed with IV Contrast, patient injected with 1 00 mL of Isovue 370. Coronal/sagittal MIP reconstructions performed. CT DLP: 494.1 mGycm Automated exposure control for dose reduction was used. FINDINGS: The heart is normal size without pericardial effusion. No flattening of the interventricular septum. Minimal refluxing contrast into the hepatic IVC. Aorta normal caliber with bovine configuration to the aortic arch. There is suboptimal contrast bolus with enhancement of 167 Hounsfield units. Allowing for this limita tion, no definite pulmonary embolus is seen. No thoracic lymphadenopathy by CT size criteria. No consolidation or pleural effusion. Visualized upper abdomen shows diminished attenuation of the hepatic parenchyma and evidence of subcu taneous injections along the anterior abdominal wall. Bones: No osseous destructive process. IMPRESSION: 1. SUBOPTIMAL CONTRAST BOLUS. NO DEFINITE PULMONARY EMBOLUS ALLOWING FOR THIS LIMITATION. 2. NO ACUTE PULMONARY PROCESS. 3. SEVERE HEPATIC STEATOSIS. APPROPRIATE CLINICAL MANAGEMENT IS ADVISED.
--- NOTE | 2024-03-13 15:23 | US ---
EXAMINATION TYPE: US venous doppler duplex LE BI DATE OF EXAM: 03/13/2024 2:42 PM COMPARISON: Prev left leg only CLINICAL INDICATION: Female, 43 years old with history of eval for DVT; Chest pain, no known prior DV T, not on blood thinners SIDE PERFORMED: Bilateral TECHNIQUE: The lower extremity deep venous system is examined utilizing real time linear array sonog pat with graded compression, doppler sonography and color-flow sonography. VESSELS IMAGED: Common Femoral Vein Deep Femoral Vein Greater Saphenous Vein * Femoral Vein Popliteal Vein Small Saphenous Vein * Proximal Calf Veins (* superficial vessels) Right Leg: Negative for DVT Left Leg: Negative for DVT IMPRESSION: No evidence for DVT within the bilateral lower extremities imaged from the groin to the upper calves.
[2024-03-13] MEDS: CYCLOBENZAPRINE 10 MG TAB PO STA (16:19)
[2024-03-13 17:53] VITALS: BP 107/82; PULSE 107; RESP 20
== END 2024-03-13 18:05 | disposition home or self-care (01) ==
LOC: EC 12:03
DX: R07.89 Other chest pain (principal); F17.290 Nicotine dependence, other tobacco product, uncomplicated; Z90.49 Acquired absence of other specified parts of digestive tract; Z88.8 Allergy status to other drugs, medicaments and biological substances
CPT/HCPCS: 36415; 93005; 85379; 83880; 80053; 83735; 84484; 85025; 85610; 85730; 81003; 93970; 71275; 99285; 96374; 96361; J1885; Q9967

== ENCOUNTER 2024-07-09 09:39 | Emergency (ER) | payer OTHER ==
[2024-07-09 09:57] VITALS: RESP 18
[2024-07-09] MEDS: LIDOCAINE 4% PATCH TOPICAL ONE (10:19)
[2024-07-09] MEDS: ORPHENADRINE 30 MG/ML 2 ML VIAL IM STA (10:21)
[2024-07-09] MEDS: KETOROLAC 15 MG/ML 1 ML VIAL IM STA (10:21)
--- NOTE | 2024-07-09 10:44 | ED ---
Back Pain HPI - General Chief Complaint: Back Pain/Injury Stated Complaint: IHS-rib pain/R arm numbness Time Seen by Provider: 07/09/24 10:41 Source: patient, RN notes reviewed Limitations: no limitations - History of Present Illness Initial Comments: 43-year-old female presenting with right rib pain x 2 weeks. Patient states she has had a dull pain in the right ribs over the past 2 weeks worse with movement. 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 Since then, has had sharp pain in the right ribs worse with movement. Denies chest pain or shortness of breath. - Related Data Home Medications Medication Instructions Recorded Confirmed Propranolol [Inderal] 20 mg PO BID 07/08/23 09/08/23 hydrOXYzine pamoate [Vistaril] 50 mg PO BID PRN 09/08/23 09/08/23 Previous Rx's Medication Instructions Recorded DULoxetine HCL [Cymbalta] 60 mg PO BID 14 Days #28 cap 12/26/22 [place] Carbonate ER [Lithobid] 450 mg PO DAILY 14 Days #14 tab 12/26/22 busPIRone HCL [Buspar] 30 mg PO BID 14 Days #28 tablet 12/26/22 traZODone HCL [Desyrel] 100 mg PO HS 14 Days #14 tab 12/26/22 Pantoprazole Sodium [Protonix] 40 mg PO DAILY #30 tab 07/11/23 Azithromycin [Zithromax] 250 mg PO DIRECTED 5 Days #6 tab 09/08/23 predniSONE 50 mg PO DAILY 5 Days #5 tab 09/08/23 Cyclobenzaprine [Flexeril] 5 mg PO TID PRN 5 Days #15 tablet 03/13/24 Cyclobenzaprine [Flexeril] 10 mg PO TID PRN #15 tab 07/09/24 Lidocaine 5% Patch [Lidoderm 5% 1 patch TOPICAL DAILY 7 Days #7 07/09/24 Patch] patch Naproxen [Naprosyn] 500 mg PO Q12H PRN #30 tab 07/09/24 Allergies Allergy/AdvReac Type Severity Reaction Status Date / Time vancomycin Allergy Severe Rash/Hives, Verified 07/09/24 09:49 itching, burning Review of Systems ROS Statement: Those systems with pertinent positive or pertinent negative responses have been documented in the HPI. ROS Other: All systems not noted in ROS Statement are negative. Past Medical History Past Medical History: Blood Disorder, Eye Disorder, Neurologic Disorder, Pulmonary Embolus (PE), Rheumatoid Arthritis (RA), Vascular Disorder Additional Past Medical History / Comment(s): MS, optic neuritis, PE/pt cannot recall laterallity, aortic calcification, chronic low back pain/bulging discs, possible ventral hernia, past meth abuse/clean for 3 years. History of Any Multi-Drug Resistant Organisms: MRSA Date of last positivie culture/infection: 04/09/22 MDRO Source:: Buttock Past Surgical History: Appendectomy Additional Past Surgical History / Comment(s): ectopic (2/ L fallopian tube rupture with surgery, R labia abscess/I&D Past Anesthesia/Blood Transfusion Reactions: No Reported Reaction Past Psychological History: Anxiety, Depression Smoking Status: Former smoker, Vaper Past Alcohol Use History: Rare Past Drug Use History: Marijuana - Past Family History Father Family Medical History: No Reported History Mother History Unknown: Yes General Exam Limitations: no limitations General appearance: alert, in no apparent distress Head exam: Present: atraumatic, normocephalic, normal inspection Eye exam: Present: normal appearance Respiratory exam: Present: normal lung sounds bilaterally, chest wall tenderness (Right reproducible lateral rib tenderness). Absent: respiratory distress, wheezes, rales, rhonchi, stridor Cardiovascular Exam: Present: regular rate, normal rhythm, normal heart sounds. Absent: systolic murmur, diastolic murmur, rubs, gallop, clicks GI/Abdominal exam: Present: soft, normal bowel sounds. Absent: distended, tenderness, guarding, rebound, rigid Extremities exam: Present: normal inspection, full ROM, normal capillary refill. Absent: tenderness, pedal edema, joint swelling, calf tenderness Neurological exam: Present: alert, oriented X3 Psychiatric exam: Present: normal affect, normal mood Skin exam: Present: warm, dry, intact, normal color. Absent: rash Course Vital Signs 07/09/24 07/09/24 09:49 11:40 Temperature 97.7 F 98.1 F Pulse Rate 81 79 Respiratory 18 18 Rate Blood Pressure 109/66 99/65 O2 Sat by Pulse 97 97 Oximetry Medical Decision Making - Medical Decision Making Was pt. sent in by a medical professional or institution (VALDEZ Chen, BODY TECHNICIAN, urgent care, hospital, or fdc...) When possible be specific @ -No Did you speak to anyone other than the patient for history (EMS, parent, family, police, friend...)? What history was obtained from this source @ -No Did you review nursing and triage notes (agree or disagree)? Why? @ -I reviewed and agree with nursing and triage notes Were old charts reviewed (outside hosp., previous admission, EMS record, old EKG, old radiological studies, urgent care reports/EKG's, fdc records)? Report findings @ -No old charts were reviewed Differential Diagnosis (chest pain, altered mental status, abdominal pain women, abdominal pain men, vaginal bleeding, weakness, fever, dyspnea, syncope, headache, dizziness, GI bleed, back pain, seizure, CVA, palpatations, mental health, musculoskeletal)? @ -Differential Musculoskeletal Muscular strain, contusion, ligament sprain, fracture, arthritis, septic arthritis, bursitis, cellulitis, muscle spasm, nerve compression, DVT, arterial occlusion, herpes zoster, electrolyte abnormality, tumor.... This is not meant to be in all inclusive list EKG interpreted by me (3pts min.). @ -None X-rays interpreted by me (1pt min.). @ -X-ray right rib reveals remote appearing right rib injuries, no acute process CT interpreted by me (1pt min.). @ -None done U/S interpreted by me (1pt. min.). @ -None done What testing was considered but not performed or refused? (CT, X-rays, U/S, labs)? Why? @ -None What meds were considered but not given or refused? Why? @ -None Did you discuss the management of the patient with other professionals (professionals i.e. VALDEZ Chen, BODY TECHNICIAN, lab, RT, psych nurse, social media designer, trades helper, teacher, alumni relations officer, complex case manager)? Give summary @ -No Was smoking cessation discussed for >3mins.? @ -No Was critical care preformed (if so, how long)? @ -No Were there social determinants of health that impacted care today? How? (Homelessness, low income, unemployed, alcoholism, drug addiction, transport ation, low edu. Level, literacy, decrease access to med. care, long term, rehab)? @ -No Was there de-escalation of care discussed even if they declined (Discuss DNR or withdrawal of care, Hospice)? DNR status @ -No What co-morbidities impacted this encounter? (DM, HTN, Smoking, COPD, CAD, Cancer, CVA, ARF, Chemo, Hep., AIDS, mental health diagnosis, sleep apnea, morbid obesity)? @ -None Was patient admitted / discharged? Hospital course, mention meds given and route, prescriptions, significant lab abnormalities, going to OR and other pertinent info. @ -Discharge. This is a 43-year-old female presenting for right rib pain x 2 weeks. 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 There is reproducible right lateral rib tenderness. Patient was provided with analgesics. Right rib x-ray reveals remote. Right rib injuries, no acute process. Results discussed with patient. Patient reports improvement of symptoms. Will treat clinically as rib fractures. Patient was given incentive spirometer. Appropriate return precautions and supportive care discussed. Case was discussed with my ED attending Dr. German. Undiagnosed new problem with uncertain prognosis? @ -No Drug Therapy requiring intensive monitoring for toxicity (Heparin, Nitro, Insulin, Cardizem)? @ -No Were any procedures done? @ -No Diagnosis/symptom? @ -Right rib fracture Acute, or Chronic, or Acute on Chronic? @ -Acute Uncomplicated (without systemic symptoms) or Complicated (systemic symptoms)? @ -Uncomplicated Side effects of treatment? @ -No Exacerbation, Progression, or Severe Exacerbation? @ -No Poses a threat to life or bodily function? How? (Chest pain, USA, ND, pneumonia, PE, COPD, DKA, ARF, appy, cholecystitis, CVA, Diverticulitis, Homicidal, Suicidal, threat to staff... and all critical care pts) @ -No Disposition Clinical Impression: Right rib fracture Disposition: HOME SELF-CARE Condition: Stable Instructions (If sedation given, give patient instructions): Rib Fracture (ED) Additional Instructions: Take naproxen, Flexeril, and lidocaine patches as needed for pain. Use incentive spirometer 10 times hourly while awake. Please return to the Emergency Department if symptoms worsen or any other concerns. Prescriptions: Cyclobenzaprine [Flexeril] 10 mg PO TID PRN #15 tab PRN Reason: Muscle Spasm Lidocaine 5% Patch [Lidoderm 5% Patch] 1 patch TOPICAL DAILY 7 Days #7 patch Naproxen [Naprosyn] 500 mg PO Q12H PRN #30 tab PRN Reason: Pain Is patient prescribed a controlled substance at d/c from ED?: No Referrals: Dary La MD [Primary Care Provider] - 1-2 days Time of Disposition: 11:49
--- NOTE | 2024-07-09 11:14 | XR ---
EXAMINATION TYPE: XR ribs RT w pa chest xray DATE OF EXAM: 07/09/2024 10:37 AM COMPARISON: 10/03/2023 CLINICAL INDICATION: Female, 43 years old with history of right rib injury; [facility] TECHNIQUE: XR ribs RT w pa chest xray; Frontal and oblique views of the ribs with frontal chest radio graph. FINDINGS: Cortical deformities of multiple right-sided ribs compatible with prior fractures with heal ing changes. No acute fracture definitely visualized. IMPRESSION: 1. Remote appearing right rib injuries. 2. No acute osseous pathology. [facility], , 07/09/2024 11:12 AM
[2024-07-09 11:41] VITALS: BP 99/65; PULSE 79; TEMP 98.1
== END 2024-07-09 11:56 | disposition home or self-care (01) ==
LOC: EC 09:39
DX: S22.31XA Fracture of one rib, right side, initial encounter for closed fracture (principal); F17.290 Nicotine dependence, other tobacco product, uncomplicated; Z88.1 Allergy status to other antibiotic agents; X50.9XXA Other and unspecified overexertion or strenuous movements or postures, initial encounter; Y99.0 Civilian activity done for income or pay
CPT/HCPCS: 71101; 99284; 96372 ×2; J2360; J1885

== ENCOUNTER 2024-08-14 10:16 | Emergency (ER) | payer OTHER ==
[2024-08-14 10:21] VITALS: TEMP 98.3
--- NOTE | 2024-08-14 10:52 | ED ---
Female Urogenital HPI - General Chief complaint: Urogenital Stated complaint: vaginal pain and bleeding Time Seen by Provider: 08/14/24 10:51 Source: patient, RN notes reviewed Mode of arrival: ambulatory Limitations: no limitations - History of Present Illness Initial comments: 43-year-old female presented to ER for evaluation ration of vaginal discomfort. Patient states while attempting to urinate this morning she felt a bulge/something coming out of her vagina. Patient reports this sensation made it difficult for her to urinate. She does report 3 vaginal deliveries. She admits to very irregular menstrual cycles recently but denies any current active vaginal bleeding, discharge or abdominal pain. Patient states she had her significant other attempt to look to see if "something was coming out" but he states he did not see anything abnormal. Patient denies any fevers, chills, nausea, vomiting, chest pain, shortness of breath, constipation/diarrhea, history of uterine prolapse, dysuria, urinary frequency or peripheral edema. - Related Data Home Medications Medication Instructions Recorded Confirmed Propranolol [Inderal] 20 mg PO BID 07/08/23 09/08/23 hydrOXYzine pamoate [Vistaril] 50 mg PO BID PRN 09/08/23 09/08/23 Previous Rx's Medication Instructions Recorded DULoxetine HCL [Cymbalta] 60 mg PO BID 14 Days #28 cap 12/26/22 [place] Carbonate ER [Lithobid] 450 mg PO DAILY 14 Days #14 tab 12/26/22 busPIRone HCL [Buspar] 30 mg PO BID 14 Days #28 tablet 12/26/22 traZODone HCL [Desyrel] 100 mg PO HS 14 Days #14 tab 12/26/22 Pantoprazole Sodium [Protonix] 40 mg PO DAILY #30 tab 07/11/23 Azithromycin [Zithromax] 250 mg PO DIRECTED 5 Days #6 tab 09/08/23 predniSONE 50 mg PO DAILY 5 Days #5 tab 09/08/23 Cyclobenzaprine [Flexeril] 5 mg PO TID PRN 5 Days #15 tablet 03/13/24 Cyclobenzaprine [Flexeril] 10 mg PO TID PRN #15 tab 07/09/24 Lidocaine 5% Patch [Lidoderm 5% 1 patch TOPICAL DAILY 7 Days #7 07/09/24 Patch] patch Naproxen [Naprosyn] 500 mg PO Q12H PRN #30 tab 07/09/24 Allergies Allergy/AdvReac Type Severity Reaction Status Date / Time vancomycin Allergy Severe Rash/Hives, Verified 08/14/24 10:21 itching, burning Review of Systems ROS Statement: Those systems with pertinent positive or pertinent negative responses have been documented in the HPI. ROS Other: All systems not noted in ROS Statement are negative. Past Medical History Past Medical History: Blood Disorder, Eye Disorder, Neurologic Disorder, Pulmonary Embolus (PE), Rheumatoid Arthritis (RA), Vascular Disorder Additional Past Medical History / Comment(s): MS, optic neuritis, PE/pt cannot recall laterallity, aortic calcification, chronic low back pain/bulging discs, possible ventral hernia, past meth abuse/clean for 3 years. History of Any Multi-Drug Resistant Organisms: MRSA Date of last positivie culture/infection: 04/09/22 MDRO Source:: Buttock Past Surgical History: Appendectomy Additional Past Surgical History / Comment(s): ectopic (2/ L fallopian tube rupture with surgery, R labia abscess/I&D Past Anesthesia/Blood Transfusion Reactions: No Reported Reaction Past Psychological History: Anxiety, Depression Smoking Status: Former smoker, Vaper Past Alcohol Use History: Rare Past Drug Use History: Marijuana - Past Family History Father Family Medical History: No Reported History Mother History Unknown: Yes General Exam Limitations: no limitations General appearance: alert, in no apparent distress Respiratory exam: Present: normal lung sounds bilaterally. Absent: respiratory distress, wheezes, rales, rhonchi, stridor Cardiovascular Exam: Present: regular rate, normal rhythm, normal heart sounds. Absent: systolic murmur, diastolic murmur, rubs, gallop, clicks GI/Abdominal exam: Present: soft, normal bowel sounds. Absent: distended, tenderness, guarding, rebound, rigid External exam: Present: normal external exam Speculum exam: Present: normal speculum exam By manual exam: Present: normal by manual exam (no uterine prolapse with bearing down) Neurological exam: Present: alert, oriented X3, CN II-XII intact Skin exam: Present: warm, dry, intact, normal color. Absent: rash Course Vital Signs 08/14/24 08/14/24 10:18 12:38 Temperature 98.3 F Pulse Rate 91 85 Respiratory 18 20 Rate Blood Pressure 122/81 128/83 O2 Sat by Pulse 99 99 Oximetry Medical Decision Making - Medical Decision Making Was pt. sent in by a medical professional or institution (VALDEZ Chen, INDUSTRIAL LOCOMOTIVE OPERATOR, urgent care, hospital, or fpc...) When possible be specific @ -No Did you speak to anyone other than the patient for history (EMS, parent, family, police, friend...)? What history was obtained from this source @ -Patient's , at bedside, aiding in HPI and past medical history. Did you review nursing and triage notes (agree or disagree)? Why? @ -I reviewed and agree with nursing and triage notes Were old charts reviewed (outside hosp., previous admission, EMS record, old EKG, old radiological studies, urgent care reports/EKG's, fpc records)? Report findings @ -No old charts were reviewed Differential Diagnosis (chest pain, altered mental status, abdominal pain women, abdominal pain men, vaginal bleeding, weakness, fever, dyspnea, syncope, headache, dizziness, GI bleed, back pain, seizure, CVA, palpatations, mental health, musculoskeletal)? @ -Uterine prolapse, urethral prolapse, rectal prolapse, UTI.. This list is not meant to be all-inclusive. EKG interpreted by me (3pts min.). @ -None done X-rays interpreted by me (1pt min.). @ -None done CT interpreted by me (1pt min.). @ -None done U/S interpreted by me (1pt. min.). @ -Transvaginal ultrasound showed a normal endometrium. Mild fibroid changes noted without discrete fibroids. Normal arterial and venous blood flow to bilateral ovaries. No ovarian torsion. Small hemorrhagic cyst bilaterally. Small fluid adjacent to left ovary. What testing was considered but not performed or refused? (CT, X-rays, U/S, labs)? Why? @ -None What meds were considered but not given or refused? Why? @ -None Did you discuss the management of the patient with other professionals (professionals i.e. VALDEZ Chen, INDUSTRIAL LOCOMOTIVE OPERATOR, lab, RT, psych nurse, social work professor, divorce lawyer, teacher, staff nuclear weapons officer, case therapist)? Give summary @ -No Was smoking cessation discussed for >3mins.? @ -No Was critical care preformed (if so, how long)? @ -No Were there social determinants of health that impacted care today? How? (Homelessness, low income, unemployed, alcoholism, drug addiction, transportation, low edu. Level, literacy, decrease access to med. care, residential, rehab)? @ -No Was there de-escalation of care discussed even if they declined (Discuss DNR or withdrawal of care, Hospice)? DNR status @ -No What co-morbidities impacted this encounter? (DM, HTN, Smoking, COPD, CAD, Cancer, CVA, ARF, Chemo, Hep., AIDS, mental health diagnosis, sleep apnea, morbid obesity)? @ -None Was patient admitted / discharged? Hospital course, mention meds given and route, prescriptions, significant lab abnormalities, going to OR and other pertinent info. @ -Discharge. 43-year-old female presented to the ER for evaluation of vaginal bulging sensation. Upon rooming, history and physical exam completed. Vitals within acceptable limits. Pelvic exam performed and chaperoned by Cristina Cobb RN. Normal external, speculum and bimanual exam. There is no active prolapse. No cervical motion tenderness. Given concern of uterine abnormality transvaginal ultrasound performed and showing a normal endometrium with fibrotic changes noted. No discrete fibroid. No evidence of ovarian torsion. Urinalysis with trace protein concerning of dehydration which I instructed patient to increase oral intake. No evidence of infection. Upon reevaluation, patient results discussed with patient, all questions answered. I advised close HAND THERAPIST follow-up, referral given. Patient is stable for discharge at this time. Strict return parameters discussed. Patient discharged in stable condition with follow-up to PCP and HAND THERAPIST. Patient verbally expressed understanding agree with care plan. Case discussed with Dr. Omar Milligan. Undiagnosed new problem with uncertain prognosis? @ -No Drug Therapy requiring intensive monitoring for toxicity (Heparin, Nitro, Insulin, Cardizem)? @ -No Were any procedures done? @ -No Diagnosis/symptom? @ -Pelvic discomfort rule out uterine prolapse Acute, or Chronic, or Acute on Chronic? @ -Acute Uncomplicated (without systemic symptoms) or Complicated (systemic symptoms)? @ -Uncomplicated Side effects of treatment? @ -No Exacerbation, Progression, or Severe Exacerbation? @ -No Poses a threat to life or bodily function? How? (Chest pain, USA, MS, pneumonia, PE, COPD, DKA, ARF, appy, cholecystitis, CVA, Diverticulitis, Homicidal, Suicidal, threat to staff... and all critical care pts) @ -No - Lab Data Lab Results 08/14/24 08/14/24 Range/Units 10:59 10:59 Urine Color Yellow Urine Appearance Clear (Clear) Urine pH 6.0 (5.0-8.0) Ur Specific [place] 1.023 (1.001-1.035) Urine Protein Trace H (Negative) Urine Glucose (UA) Negative (Negative) Urine Ketones Negative (Negative) Urine Blood Negative (Negative) Urine Nitrite Negative (Negative) Urine Bilirubin Negative (Negative) Urine Urobilinogen <2.0 (<2.0) mg/dL Ur Leukocyte Esterase Negative (Negative) Urine HCG, Qual Not Detected (Not Detectd) - Radiology Data Radiology results: report reviewed, image reviewed Disposition Clinical Impression: Pelvic pain Disposition: HOME SELF-CARE Condition: Stable Instructions (If sedation given, give patient instructions): Uterine Prolapse (ED) Additional Instructions: Follow-up with PCP and HAND THERAPIST for further evaluation. Return to the ER for new or worsening concerns. Is patient prescribed a controlled substance at d/c from ED?: No Referrals: Dary La MD [Primary Care Provider] - 1-2 days Time of Disposition: 12:21
[2024-08-14 11:18] LABS: Appearance,Urine Clear (Clear); Bilirubin,Urine Negative (Negative); Blood,Urine Negative (Negative); Color,Urine Yellow; Glucose,Urine (UA) Negative (Negative); Ketones,Urine Negative (Negative); Leukocyte Esterase,Urine Negative (Negative); Nitrite,Urine Negative (Negative); Protein,Urine Trace (Negative); Specific Gravity,Urine 1.023 (1.001-1.035); Urobilinogen,Urine <2.0 mg/dL (<2.0)
--- NOTE | 2024-08-14 11:48 | US ---
EXAMINATION TYPE: US transvaginal DATE OF EXAM: 08/14/2024 COMPARISON: NONE CLINICAL INDICATION: Female, 43 years old with history of vaginal pain; Patient states it feels like her vagina is falling out; Hx ectopic and tubal; Patient denies any other signs symptoms or relevant history TECHNIQUE: Transvaginal (TV). Doppler imaging: Color Doppler Images were obtained. Spectral doppler images were obtained. FINDINGS: Date of LMP: 08/04/2024 EXAM MEASUREMENTS: Uterus: 7.6 x 4.1 x 5.5 cm Endometrial Stripe: 1.0 cm Right Ovary: 2.2 x 1.8 x 1.8 cm Left Ovary: 2.3 x 3.3 x 2.1 cm 1. Uterus: Anteverted Heterogenous and bulky 2. Endometrium: WNL 3. Right Ovary: ?Dominant follicle vs hemorrhagic cyst 4. Left Ovary: Multiple hemorrhagic cysts, largest = 1.3 x 1.5 x 1.6 cm Spectral, color and waveform doppler imaging shows good arterial and venous flow within the ovaries ; there is no evidence for ovarian torsion. 5. Bilateral Adnexa: Fluid left adnexa 6. Posterior cul-de-sac: WNL IMPRESSION: 1. Normal endometrium. 2. Mild fibroid changes of the uterus without discrete fibroids. 3. No ovarian torsion. 4. Bilateral small hemorrhagic cysts or follicles. No adnexal masses greater than 2 cm. 5. Small amount of free fluid adjacent to the left ovary. [facility], , 08/14/2024 11:46 AM
[2024-08-14 12:39] VITALS: BP 128/83; PULSE 85; RESP 20
== END 2024-08-14 12:39 | disposition home or self-care (01) ==
LOC: EC 10:16
DX: R10.2 Pelvic and perineal pain (principal); F17.290 Nicotine dependence, other tobacco product, uncomplicated; Z88.0 Allergy status to penicillin
CPT/HCPCS: 76830; 81003; 81025; 93975; 99284

== ENCOUNTER 2024-09-18 09:43 | Observation (INO) | payer OTHER ==
[2024-09-18 10:36] LABS: Influenza A Not Detected (Not Detectd); Influenza B Not Detected (Not Detectd); RSV Not Detected (Not Detectd)
[2024-09-18] MEDS ORDERED: methylPREDNISolone SOD SUCCI 125 MG/2 ML VIAL IV SCH (10:45)
[2024-09-18] MEDS: SODIUM CHLORIDE 0.9% 1,000 ML IV STA (10:57)
[2024-09-18 11:04] LABS: Basophils # (A) 0.1 k/uL (0-0.2); Basophils % (A) 1 %; Eosinophils # (A) 0.5 k/uL (0-0.7); Eosinophils % (A) 6 %; HCT 35.7 % (34.0-46.0); HGB 11.2 gm/dL (11.4-16.0); Lymphocytes # (A) 2.1 k/uL (1.0-4.8); Lymphocytes % (A) 23 %; MCH 27.9 pg (25.0-35.0); MCHC 31.4 g/dL (31.0-37.0); MCV 88.9 fL (80.0-100.0); Mean Platelet Volume 7.9; Monocytes # (A) 0.4 k/uL (0-1.0); Monocytes % (A) 5 %; Neutrophils % (A) 65 %; Platelet Count 306 k/uL (150-450); RBC 4.02 m/uL (3.80-5.40); RDW 13.5 % (11.5-15.5); WBC 9.2 k/uL (3.8-10.6)
--- NOTE | 2024-09-18 11:20 | ED ---
Weakness HPI - General Chief complaint: Upper Respiratory Infection Stated complaint: fatigue Time Seen by Provider: 09/18/24 09:47 Source: patient, RN notes reviewed Mode of arrival: ambulatory Limitations: no limitations - History of Present Illness Initial comments: This is a 43-year-old female who presents to the emergency department for weakness and fatigue. States that it has been going on for about a week at this point. Denies any URI symptoms. Reports a headache and visual changes in the left eye. Believes that she is having an MS flareup with optic neuritis. States that she often requires hospitalization with IV steroids for a couple of days. Denies any chest pain or shortness of breath. - Related Data Home Medications Medication Instructions Recorded Confirmed Propranolol [Inderal] 20 mg PO BID 07/08/23 09/18/24 hydrOXYzine pamoate [Vistaril] 50 mg PO BID 09/08/23 09/18/24 Dicyclomine [Bentyl] 20 mg PO TID PRN 09/18/24 09/18/24 Gabapentin [Neurontin] 100 mg PO TID 09/18/24 09/18/24 Omeprazole [PriLOSEC] 20 mg PO DAILY PRN 09/18/24 09/18/24 Teriflunomide [Aubagio] 14 mg PO HS 09/18/24 09/18/24 Previous Rx's Medication Instructions Recorded DULoxetine HCL [Cymbalta] 60 mg PO BID 14 Days #28 cap 12/26/22 [place] Carbonate ER [Lithobid] 450 mg PO DAILY 14 Days #14 tab 12/26/22 busPIRone HCL [Buspar] 30 mg PO BID 14 Days #28 tablet 12/26/22 traZODone HCL [Desyrel] 100 mg PO HS 14 Days #14 tab 12/26/22 Allergies Allergy/AdvReac Type Severity Reaction Status Date / Time vancomycin Allergy Severe Rash/Hives, Verified 09/18/24 14:51 itching, burning Review of Systems ROS Statement: Those systems with pertinent positive or pertinent negative responses have been documented in the HPI. ROS Other: All systems not noted in ROS Statement are negative. Past Medical History Past Medical History: Blood Disorder, Eye Disorder, Neurologic Disorder, Pulmonary Embolus (PE), Rheumatoid Arthritis (RA), Vascular Disorder Additional Past Medical History / Comment(s): MS, optic neuritis, PE/pt cannot recall laterallity, aortic calcification, chronic low back pain/bulging discs, possible ventral hernia, past meth abuse/clean for 3 years. History of Any Multi-Drug Resistant Organisms: MRSA Date of last positivie culture/infection: 04/09/22 MDRO Source:: Buttock Past Surgical History: Appendectomy Additional Past Surgical History / Comment(s): ectopic (2/ L fallopian tube rupture with surgery, R labia abscess/I&D Past Anesthesia/Blood Transfusion Reactions: No Reported Reaction Past Psychological History: Anxiety, Depression Smoking Status: Former smoker, Vaper Past Alcohol Use History: Rare Past Drug Use History: Marijuana - Past Family History Father Family Medical History: No Reported History Mother History Unknown: Yes General Exam Limitations: no limitations General appearance: alert, in no apparent distress Head exam: Present: atraumatic, normocephalic, normal inspection Eye exam: Present: normal appearance, PERRL, EOMI. Absent: scleral icterus, conjunctival injection, periorbital swelling Respiratory exam: Present: normal lung sounds bilaterally. Absent: respiratory distress, wheezes, rales, rhonchi, stridor Cardiovascular Exam: Present: regular rate, normal rhythm Neurological exam: Present: alert, oriented X3, CN II-XII intact Psychiatric exam: Present: normal affect, normal mood Skin exam: Present: warm, dry, intact, normal color. Absent: rash Course Vital Signs 09/18/24 09/18/24 09/18/24 09:44 10:15 15:51 Temperature 97.8 F Pulse Rate 91 90 Respiratory 18 18 16 Rate Blood Pressure 135/68 138/86 O2 Sat by Pulse 96 98 Oximetry Medical Decision Making - Medical Decision Making This is a 43 year old female who presents to the emergency department for weakness/fatigue and visual changes. Was pt. sent in by a medical professional or institution? @ -No Did you speak to anyone other than the patient for history? @ -No Did you review nursing and triage notes? @ -Yes, and I agree, it is accurate with regards to the patient's symptoms. Were old charts reviewed? @ -No Differential Diagnosis? @ -Differential Weakness: Hypoglycemia, shock, sepsis, hyponatremia, anemia, infection, AL, ETOH, adverse medicine reaction, overdose, stroke, this is not meant to be an all-inclusive list. EKG interpreted by me (3pts min.)? @ -Not obtained X-rays interpreted by me (1pt min.)? @ -Not obtained CT interpreted by me (1pt min.)? @ -Not obtained U/S interpreted by me (1pt. min.)? @ -Not obtained What testing was considered but not performed? (CT, X-rays, U/S, labs)? Why? @ -None What meds were considered but not given? Why? @ -None Did you discuss the management of the patient with other professionals? @ -Yes, Dr. Peña, who accepts the patient for admission Did you reconcile home meds? @ -Yes Was smoking cessation discussed for >3mins.? @ -No Was critical care preformed (if so, how long)? @ -No Were there social determinants of health that impacted care today? How? (Homelessness, low income, unemployed, alcoholism, drug addiction, transportation, low edu. Level, literacy, decrease access to med. care, halfway, rehab)? @ -No Was there de-escalation of care discussed even if they declined? (Discuss DNR or withdrawal of care, Hospice)? @ -No What co-morbidities impacted this encounter? (DM, HTN, Smoking, COPD, CAD, Cancer, CVA, Hep., AIDS, mental health diagnosis, sleep apnea, morbid obesity)? @ -MS Was patient admitted / discharged? @ -Admitted. Lab work unremarkable. COVID, influenza, and RSV testing negative. Urinalysis negative for signs of infection. Patient has a history of optic neuritis with MS and states that it feels like a typical flareup to her. She does often require hospitalization with IV steroids. 1 g of Solu-Medrol ordered to be given daily over the next 3 days, which is the current recommendation for optic neuritis. MRI ordered to likely be completed tomorrow. Patient admitted to medicine for further management of MS flare with optic neuritis. Case discussed with ED attending Dr. German. Undiagnosed new problem with uncertain prognosis? @ -None Drug Therapy requiring intensive monitoring for toxicity (Heparin, Nitro, Insulin, Cardizem)? @ -None Were any procedures done? @ -None Diagnosis/symptom? @ -Optic neuritis, MS flare Acute, or Chronic, or Acute on Chronic? @ -Acute Uncomplicated (without systemic symptoms) or Complicated (systemic symptoms)? @ -Complicated Side effects of treatment? @ -None Exacerbation, Progression, or Severe Exacerbation] @ -Not applicable Poses a threat to life or bodily function? @ -Yes, can lead to permanent visual deficits - Lab Data Result diagrams: 09/18/24 10:55 09/18/24 11:50 Lab Results 09/18/24 09/18/24 09/18/24 Range/Units 09:47 10:55 11:50 WBC 9.2 (3.8-10.6) k/uL RBC 4.02 (3.80-5.40) m/uL Hgb 11.2 L (11.4-16.0) gm/dL Hct 35.7 (34.0-46.0) % MCV 88.9 (80.0-100.0) fL MCH 27.9 (25.0-35.0) pg MCHC 31.4 (31.0-37.0) g/dL RDW 13.5 (11.5-15.5) % Plt Count 306 (150-450) k/uL MPV 7.9 Neutrophils % 65 % Lymphocytes % 23 % Monocytes % 5 % Eosinophils % 6 % Basophils % 1 % Neutrophils # 6.0 (1.3-7.7) k/uL Lymphocytes # 2.1 (1.0-4.8) k/uL Monocytes # 0.4 (0-1.0) k/uL Eosinophils # 0.5 (0-0.7) k/uL Basophils # 0.1 (0-0.2) k/uL Sodium (137-145) mmol/L Potassium (3.5-5.1) mmol/L Chloride (98-107) mmol/L Carbon Dioxide (22-30) mmol/L Anion Gap mmol/L BUN (7-17) mg/dL Creatinine (0.52-1.04) mg/dL Est GFR (CKD-EPI)AfAm (>60 ml/min/1.73 sqM) Est GFR (CKD-EPI)NonAf (>60 ml/min/1.73 sqM) Glucose (74-99) mg/dL Calcium (8.4-10.2) mg/dL Magnesium (1.6-2.3) mg/dL Total Bilirubin (0.2-1.3) mg/dL AST (14-36) U/L ALT (4-34) U/L Alkaline Phosphatase (38-126) U/L C-Reactive Protein (<1.0) mg/dL Total Protein (6.3-8.2) g/dL Albumin (3.5-5.0) g/dL TSH (0.465-4.680) mIU/L Urine Color Yellow Urine Appearance Clear (Clear) Urine pH 6.5 (5.0-8.0) Ur Specific [place] 1.027 (1.001-1.035) Urine Protein Trace H (Negative) Urine Glucose (UA) Negative (Negative) Urine Ketones Negative (Negative) Urine Blood Negative (Negative) Urine Nitrite Negative (Negative) Urine Bilirubin Negative (Negative) Urine Urobilinogen 3.0 (<2.0) mg/dL Ur Leukocyte Esterase Negative (Negative) Influenza Type A (PCR) Not Detected (Not Detectd) Influenza Type B (PCR) Not Detected (Not Detectd) RSV (PCR) Not Detected (Not Detectd) SARS-CoV-2 (PCR) Not Detected (Not Detectd) 09/18/24 Range/Units 11:50 WBC (3.8-10.6) k/uL RBC (3.80-5.40) m/uL Hgb (11.4-16.0) gm/dL Hct (34.0-46.0) % MCV (80.0-100.0) fL MCH (25.0-35.0) pg MCHC (31.0-37.0) g/dL RDW (11.5-15.5) % Plt Count (150-450) k/uL MPV Neutrophils % % Lymphocytes % % Monocytes % % Eosinophils % % Basophils % % Neutrophils # (1.3-7.7) k/uL Lymphocytes # (1.0-4.8) k/uL Monocytes # (0-1.0) k/uL Eosinophils # (0-0.7) k/uL Basophils # (0-0.2) k/uL Sodium 139 (137-145) mmol/L Potassium 3.6 (3.5-5.1) mmol/L Chloride 108 H (98-107) mmol/L Carbon Dioxide 23 (22-30) mmol/L Anion Gap 8 mmol/L BUN 10 (7-17) mg/dL Creatinine 0.57 (0.52-1.04) mg/dL Est GFR (CKD-EPI)AfAm >90 (>60 ml/min/1.73 sqM) Est GFR (CKD-EPI)NonAf >90 (>60 ml/min/1.73 sqM) Glucose 94 (74-99) mg/dL Calcium 8.0 L (8.4-10.2) mg/dL Magnesium 2.0 (1.6-2.3) mg/dL Total Bilirubin 0.6 (0.2-1.3) mg/dL AST 22 (14-36) U/L ALT 24 (4-34) U/L Alkaline Phosphatase 77 (38-126) U/L C-Reactive Protein <0.5 (<1.0) mg/dL Total Protein 5.8 L (6.3-8.2) g/dL Albumin 3.3 L (3.5-5.0) g/dL TSH 1.250 (0.465-4.680) mIU/L Urine Color Urine Appearance (Clear) Urine pH (5.0-8.0) Ur Specific [place] (1.001-1.035) Urine Protein (Negative) Urine Glucose (UA) (Negative) Urine Ketones (Negative) Urine Blood (Negative) Urine Nitrite (Negative) Urine Bilirubin (Negative) Urine Urobilinogen (<2.0) mg/dL Ur Leukocyte Esterase (Negative) Influenza Type A (PCR) (Not Detectd) Influenza Type B (PCR) (Not Detectd) RSV (PCR) (Not Detectd) SARS-CoV-2 (PCR) (Not Detectd) Disposition Clinical Impression: Multiple sclerosis exacerbation, Optic neuritis Disposition: ADMITTED IP TO THIS HOSP
[2024-09-18] MEDS: methylPREDNISolone SOD SUCCIN 1,000 MG in SODIUM CHLORIDE 0.9% 250 ML IVPB ONE (11:22)
[2024-09-18 12:13] LABS: Appearance,Urine Clear (Clear); Bilirubin,Urine Negative (Negative); Blood,Urine Negative (Negative); Color,Urine Yellow; Glucose,Urine (UA) Negative (Negative); Ketones,Urine Negative (Negative); Leukocyte Esterase,Urine Negative (Negative); Nitrite,Urine Negative (Negative); PH, Urine 6.5 (5.0-8.0); Protein,Urine Trace (Negative); Specific Gravity,Urine 1.027 (1.001-1.035)
[2024-09-18 12:36] LABS: ALT 24 U/L (4-34); AST 22 U/L (14-36); African American GFR (CKD) >90 (>60 ml/min/1.73 sqM); Albumin 3.3 g/dL (3.5-5.0); Alkaline Phosphatase 77 U/L (38-126); Anion Gap 8 mmol/L; Blood Urea Nitrogen 10 mg/dL (7-17); C Reactive Protein <0.5 mg/dL (<1.0); Carbon Dioxide 23 mmol/L (22-30); Chloride 108 mmol/L (98-107); Glucose 94 mg/dL (74-99); Non-African American GFR(CKD) >90 (>60 ml/min/1.73 sqM); Potassium 3.6 mmol/L (3.5-5.1); Sodium 139 mmol/L (137-145); Total Bilirubin 0.6 mg/dL (0.2-1.3); Total Protein 5.8 g/dL (6.3-8.2)
[2024-09-18] MEDS: ACETAMINOPHEN TAB 500 MG TAB PO STA (14:03)
[2024-09-18] MEDS: KETOROLAC 15 MG/ML 1 ML VIAL IVP STA (14:03)
[2024-09-18] MEDS ORDERED: MORPHINE SULFATE 4 MG/ML SYRINGE IV PRN (14:05)
[2024-09-18] MEDS ORDERED: NALOXONE 0.4 MG/ML 1 ML VIAL IV PRN (14:05)
[2024-09-18] MEDS ORDERED: ONDANSETRON 4 MG/2 ML VIAL IVP PRN (14:05)
[2024-09-18] MEDS ORDERED: PANTOPRAZOLE 40 MG TABLET PO PRN (17:11)
[2024-09-18] MEDS ORDERED: DICYCLOMINE 20 MG TAB PO PRN (17:11)
--- NOTE | 2024-09-18 17:46 | P.HPIM ---
History of Present Illness H&P Date: 09/18/24 Chief Complaint: Weakness/upper respiratory infection 43-year-old female, history of PE, rheumatoid arthritis, MS, who presents to the emergency department for weakness and fatigue. States that it has been going on for about a week at this point. Denies any URI symptoms. Reports a headache and visual changes in the left eye. Believes that she is having an MS flareup with optic neuritis. States that she often requires hospitalization with IV steroids for a couple of days. Denies any chest pain or shortness of breath. Blood work completed in ED reveals a WBC of 9.2, hemoglobin of 11.1 platelet count of 306, sodium 139, potassium 3.6, BUNs/creatinine of 10/0.57 blood glucose of 94 UA is unremarkable Viral screen is negative for influenza A, B, RSV and COVID-19 PCR Patient was discussed with neurology and received 1 g of IV Solu-Medrol in ED and is being admitted for further treatment; neurology recommending MRI of the brain Review of Systems REVIEW OF SYSTEMS: CONSTITUTIONAL: No fever, no malaise, no fatigue. HEENT: No recent visual problems or hearing problems. Denied any sore throat. CARDIOVASCULAR: No chest pain, orthopnea, PND, no palpitations, no syncope. PULMONARY: No shortness of breath, no cough, no hemoptysis. GASTROINTESTINAL: No diarrhea, no nausea, no vomiting, no abdominal pain. NEUROLOGICAL: No headaches, no weakness, no numbness. HEMATOLOGICAL: Denies any bleeding or petechiae. GENITOURINARY: Denies any burning micturition, frequency, or urgency. MUSCULOSKELETAL/RHEUMATOLOGICAL: Denies any joint pain, swelling, or any muscle pain. ENDOCRINE: Denies any polyuria or polydipsia. The rest of the 14-point review of systems is negative. Past Medical History Past Medical History: Blood Disorder, Eye Disorder, Neurologic Disorder, Pulmonary Embolus (PE), Rheumatoid Arthritis (RA), Vascular Disorder Additional Past Medical History / Comment(s): MS, optic neuritis, PE/pt cannot recall laterallity, aortic calcification, chronic low back pain/bulging discs, possible ventral hernia, past meth abuse/clean for 3 years. History of Any Multi-Drug Resistant Organisms: MRSA Date of last positivie culture/infection: 04/09/22 MDRO Source:: Buttock Past Surgical History: Appendectomy Additional Past Surgical History / Comment(s): ectopic (2/ L fallopian tube rupture with surgery, R labia abscess/I&D Past Anesthesia/Blood Transfusion Reactions: No Reported Reaction Past Psychological History: Anxiety, Depression Smoking Status: Former smoker, Vaper Past Alcohol Use History: Rare Past Drug Use History: Marijuana - Past Family History Father Family Medical History: No Reported History Mother History Unknown: Yes Medications and Allergies Home Medications Medication Instructions Recorded Confirmed Type DULoxetine HCL [Cymbalta] 60 mg PO BID 14 Days #28 cap 12/26/22 09/18/24 Rx [place] Carbonate ER [Lithobid] 450 mg PO DAILY 14 Days #14 tab 12/26/22 09/18/24 Rx busPIRone HCL [Buspar] 30 mg PO BID 14 Days #28 tablet 12/26/22 09/18/24 Rx traZODone HCL [Desyrel] 100 mg PO HS 14 Days #14 tab 12/26/22 09/18/24 Rx Propranolol [Inderal] 20 mg PO BID 07/08/23 09/18/24 History hydrOXYzine pamoate [Vistaril] 50 mg PO BID 09/08/23 09/18/24 History Dicyclomine [Bentyl] 20 mg PO TID PRN 09/18/24 09/18/24 History Gabapentin [Neurontin] 100 mg PO TID 09/18/24 09/18/24 History Omeprazole [PriLOSEC] 20 mg PO DAILY PRN 09/18/24 09/18/24 History Teriflunomide [Aubagio] 14 mg PO HS 09/18/24 09/18/24 History Allergies Allergy/AdvReac Type Severity Reaction Status Date / Time vancomycin Allergy Severe Rash/Hives, Verified 09/18/24 14:51 itching, burning Physical Exam Vitals: Vital Signs Temp Pulse Resp BP Pulse Ox 09/18/24 15:51 90 16 138/86 98 09/18/24 10:15 18 09/18/24 09:44 97.8 F 91 18 135/68 96 Intake and Output 09/18/24 09/18/24 09/18/24 06:59 14:59 22:59 Other: Weight 96.162 kg General appearance: alert, in no apparent distress Head exam: Present: atraumatic, normocephalic, normal inspection Eye exam: Present: normal appearance, PERRL, EOMI. Absent: scleral icterus, conjunctival injection, periorbital swelling Respiratory exam: Present: normal lung sounds bilaterally. Absent: respiratory distress, wheezes, rales, rhonchi, stridor Cardiovascular Exam: Present: regular rate, normal rhythm Neurological exam: Present: alert, oriented X3, CN II-XII intact Psychiatric exam: Present: normal affect, normal mood Skin exam: Present: warm, dry, intact, normal color. Absent: rash Results CBC & Chem 7: 09/18/24 10:55 09/18/24 11:50 Labs: Abnormal Lab Results - Last 24 Hours (Table) 09/18/24 09/18/24 09/18/24 Range/Units 10:55 11:50 11:50 Hgb 11.2 L (11.4-16.0) gm/dL Chloride 108 H (98-107) mmol/L Calcium 8.0 L (8.4-10.2) mg/dL Total Protein 5.8 L (6.3-8.2) g/dL Albumin 3.3 L (3.5-5.0) g/dL Urine Protein Trace H (Negative) Assessment and Plan Assessment: 1. Acute exacerbation MS/optic neuritis -Patient has been placed on IV Solu-Medrol 1 g daily x 3 days -Neurology has been consulted; recommending MRI of the brain 2. Upper respiratory infection; antibiotic treatment 3. Anxiety/depression; BuSpar 30 mg twice daily; Neurontin 100 mg 3 times daily -Cymbalta 60 mg twice daily; lithium 450 mg daily 4. Gastroesophageal reflux disease; Protonix 40 mg daily 5. Hypertension; Inderal 20 mg twice daily -DVT prophylaxis SCDs CODE STATUS; full code
[2024-09-18] MEDS: DULoxetine HCL 60 MG CAPSULE.DR PO SCH (20:26)
[2024-09-18] MEDS: hydrOXYzine pamoate 25 MG CAP PO SCH (20:26)
[2024-09-18] MEDS: traZODone HCL 100 MG TAB PO SCH (20:27)
[2024-09-18] MEDS: PROPRANOLOL 20 MG TAB PO SCH (20:27)
[2024-09-18] MEDS: busPIRone HCl 10 MG TAB PO SCH (20:27)
[2024-09-18] MEDS: Teriflunomide [Aubagio] 14 MG Tablet PO SCH (20:27)
[2024-09-18] MEDS: GABAPENTIN 100 MG CAP PO SCH (20:49)
[2024-09-19] MEDS: IBUPROFEN 400 MG TAB PO PRN (06:22)
[2024-09-19] MEDS: ACETAMINOPHEN TAB 325 MG TAB PO PRN (06:23)
[2024-09-19 06:37] LABS: Erythrocyte Sedimentation Rate 16 mm/Hr (0-20)
[2024-09-19] MEDS: PANTOPRAZOLE 40 MG/10 ML VIAL IV SCH (08:41)
[2024-09-19] MEDS: methylPREDNISolone SOD SUCCIN 1,000 MG in SODIUM CHLORIDE 0.9% 250 ML IVPB SCH (08:43)
[2024-09-19] MEDS: LITHIUM CARBONATE ER 450 MG TABLET.ER PO SCH (09:30)
[2024-09-19 10:33] LABS: Basophils # (A) 0.02 X 10*3/uL (0.00-0.10); Basophils % (A) 0.1 %; Eosinophils # (A) 0 X 10*3/uL (0.04-0.35); Eosinophils % (A) 0 %; HCT 35.7 % (37.2-46.3); HGB 11.5 g/dL (12.0-15.0); Lymphocytes # (A) 1.18 X 10*3/uL (0.90-5.00); MCHC 32.2 g/dL (32.0-37.0); MCV 87.1 FL (80.0-97.0); Mean Platelet Volume 10.9 FL (9.5-12.2); Monocytes # (A) 0.23 X 10*3/uL (0.20-1.00); Monocytes % (A) 1.4 %; NRBC Per 100 WBC 0 X 10*3/uL (0.00-0.01); Neutrophils # (A) 15.28 X 10*3/uL (1.80-7.70); Neutrophils % (A) 90.8 %; Platelet Count 346 X 10*3/uL (140-440); RDW 13.9 % (11.5-14.5); WBC 16.82 X 10*3/uL (4.50-10.00)
[2024-09-19] MEDS: KETOROLAC 15 MG/ML 1 ML VIAL IVP PRN (10:41)
[2024-09-19 10:55] LABS: BUN/Creat Ratio 10.83 Ratio (12.00-20.00); Blood Urea Nitrogen 6.5 mg/dL (9.0-27.0); Carbon Dioxide 18.4 mmol/L (21.6-31.8); Chloride 107 mmol/L (96-109); Glucose 164 mg/dL (70-110); Potassium 4.3 mmol/L (3.5-5.5); Sodium 138 mmol/L (135-145)
[2024-09-19] MEDS: HYDROcodone/APAP 5-325MG 1 EACH TAB PO PRN (13:24)
--- NOTE | 2024-09-19 22:38 | P.PN ---
Subjective Progress Note Date: 09/19/24 Patient evaluated today evaluated up ambulating to the restroom. States the left foot weakness is better. Reports having significant headache after the first and second IV methylprednisolone infusions. Awaiting neurology input. Brain MRI pending. WBC 16.82. REVIEW OF SYSTEMS: CONSTITUTIONAL: No fever, no malaise, no fatigue. HEENT: No recent visual problems or hearing problems. Denied any sore throat. CARDIOVASCULAR: No chest pain, orthopnea, PND, no palpitations, no syncope. PULMONARY: No shortness of breath, no cough, no hemoptysis. GASTROINTESTINAL: No diarrhea, no nausea, no vomiting, no abdominal pain. NEUROLOGICAL: No headaches, no weakness, no numbness. PHYSICAL EXAMINATION: GENERAL: The patient is alert and oriented x3, not in any acute distress. Well developed, well nourished. Elderly appearing, obese HEENT: Pupils are round and equally reacting to light. EOMI. No scleral icterus. No conjunctival pallor. Normocephalic, atraumatic. No pharyngeal erythema. No thyromegaly. CARDIOVASCULAR: S1 and S2 muffled, irregular PULMONARY: Diminished breath sounds bilaterally otherwise chest is clear to auscultation, no wheezing or crackles. ABDOMEN: Soft, obese, nontender, nondistended, normoactive bowel sounds. No palpable organomegaly. MUSCULOSKELETAL: No joint swelling or deformity. EXTREMITIES: No cyanosis, clubbing, or pedal edema. NEUROLOGICAL: Gross neurological examination did not reveal any focal deficits. SKIN: No rashes. 1. Acute exacerbation MS/optic neuritis -Patient has been placed on IV Solu-Medrol 1 g daily x 3 days -Neurology has been consulted; recommending MRI of the brain -Reactive leukocytosis from the high dose steroids. No underlying infectious process. 2. Upper respiratory infection, resolving. No need for antibiotics. 3. Anxiety/depression; BuSpar 30 mg twice daily; Neurontin 100 mg 3 times daily -Cymbalta 60 mg twice daily; lithium 450 mg daily 4. Gastroesophageal reflux disease; Protonix 40 mg daily 5. Hypertension; Inderal 20 mg twice daily -DVT prophylaxis SCDs CODE STATUS; full code The impression and plan of care has been dictated by Divina Garrison, Nurse Practitioner as directed. Dr. Hung MD I have performed a history and physical examination and medical decision making of this patient, discussed the same with the dictator, and agree with the dictators assessment and plan as written, documented as a scribe. Based on total visit time, I have performed more than 50% of this visit. Objective - Vital Signs Vital signs: Vital Signs Temp 98.3 F 09/19/24 14:19 Pulse 95 09/19/24 14:19 Resp 16 09/19/24 14:19 BP 111/69 09/19/24 14:19 Pulse Ox 96 09/19/24 14:19 FiO2 Intake & Output 09/18/24 09/19/24 09/19/24 18:59 06:59 18:59 Weight 96.162 kg 96.162 kg Other: # Voids 3 - Labs CBC & Chem 7: 09/19/24 08:01 09/19/24 08:01 Labs: Abnormal Lab Results - Last 24 Hours (Table) 09/19/24 09/19/24 Range/Units 08:01 08:01 WBC 16.82 H (4.50-10.00) X 10*3/uL Hgb 11.5 L (12.0-15.0) g/dL Hct 35.7 L (37.2-46.3) % Immature Gran # 0.11 H (0.00-0.04) X 10*3/uL Neutrophils # 15.28 H (1.80-7.70) X 10*3/uL Eosinophils # 0 L (0.04-0.35) X 10*3/uL Carbon Dioxide 18.4 L (21.6-31.8) mmol/L Anion Gap 12.60 H (4.00-12.00) mmol/L BUN 6.5 L (9.0-27.0) mg/dL BUN/Creatinine Ratio 10.83 L (12.00-20.00) Ratio Glucose 164 H (70-110) mg/dL Assessment and Plan Time with Patient: Less than 30
--- NOTE | 2024-09-20 07:11 | P.CNNES ---
History of Present Illness Consult date: 09/19/24 Requesting physician: Stacy Burton Reason for Consult: MS exacerbation, optic neuritis History of Present Illness: Patient is a 43-year-old right-handed female with history of relapsing remitting MS, came to the hospital yesterday at 9:43 AM for neurological symptoms. Patient states that she woke up yesterday morning with visual disturbance. She believes that her left eye was blurred about 50% vision loss. She felt very exhausted. She tried to walk and feet would not go with the body. She was not able to walk well. When she got up, her ankles rolled, couldn't brain picker the feet. She also was having headaches and also some pain behind the eye. Everything looked very bright in both eyes. She was also having pain in the ankles. Because of these symptoms, patient decided to come to the ER. Vital signs on arrival blood pressure 135/68 pulse of 91 temperature 97.8. Blood test shows normal CBC, CMP. UA negative, influenza, RSV and coronavirus PCR negative. TSH normal 1.250. Patient's last MRI of the brain from 08/13/2022 revealed new right frontal lobe white matter change, can be compatible with multiple sclerosis. Patient follows up with Dr. Hernandez, her neurologist at the [facility]. Patient previously used to be on Ocrevus, but she believes it was "tearing her up", therefore she stopped taking it about a year ago. She tried Tecfidera, but now she is on Aubagio for the last 6 months. Patient has history of multiple sclerosis that was diagnosed in 2003. She was at first placed on Avonex but developed significant side effects. She was on Copaxone but stopped taking it for long time. Patient previously has history of optic neuritis, involving bilateral eyes. She also has history of vertigo in the past. Patient has been seen by myself on 08/11/2022 for frequent falls, dizziness and left leg weakness. She was also seen by myself in January 2022 with pain in the left distal upper arm with some numbness and weakness of the left arm. Patient has smoked half to 1 pack per day since age 16. She stopped smoking in March 2021, and started vaping, and states stopped vapeing 6 days ago. Patient denies any alcohol use or any other substance abuse. She has been clean for 4 years as she states. Review of Systems All pertinent positive and negative review of systems mentioned in HPI. Otherwise unremarkable. Past Medical History Past Medical History: Blood Disorder, Eye Disorder, Neurologic Disorder, Pulmonary Embolus (PE), Rheumatoid Arthritis (RA), Vascular Disorder Additional Past Medical History / Comment(s): MS, optic neuritis, PE/pt cannot recall laterallity, aortic calcification, chronic low back pain/bulging discs, possible ventral hernia, past meth abuse/clean for 3 years. Patient reports prediabetic History of Any Multi-Drug Resistant Organisms: MRSA Date of last positivie culture/infection: 04/09/22 MDRO Source:: Buttock Past Surgical History: Appendectomy Additional Past Surgical History / Comment(s): ectopic (2/ L fallopian tube rupture with surgery, R labia abscess/I&D Past Anesthesia/Blood Transfusion Reactions: No Reported Reaction Past Psychological History: Anxiety, Depression Additional Psychological History / Comment(s): Pt does not drive, she gets to [facility] by bus or her sister. She is otherwise independent. Smoking Status: Former smoker, Vaper Past Alcohol Use History: Rare Additional Past Alcohol Use History / Comment(s): Pt started smoking in 1997 , QUIT 2021. PAST DRUG ABUSE HX-CLEAN 3 years. patient reports rarely etoh use 1-2 a year Past Drug Use History: Marijuana Additional Drug Use History / Comment(s): Pt has hx of meth addiction with rehab. She has not used meth in 3 years. USES MARIJUANA DAILY-INSTRUCTED TO REFRAIN FROM USE FOR AT LEAST 24HOURS PRIOR TO PROCEDURE - Past Family History Father Family Medical History: No Reported History Mother History Unknown: Yes Medications and Allergies Home Medications Medication Instructions Recorded Confirmed Type DULoxetine HCL [Cymbalta] 60 mg PO BID 14 Days #28 cap 12/26/22 09/18/24 Rx [place] Carbonate ER [Lithobid] 450 mg PO DAILY 14 Days #14 tab 12/26/2209/18 Rx busPIRone HCL [Buspar] 30 mg PO BID 14 Days #28 tablet 12/26/22 09/18/24 Rx traZODone HCL [Desyrel] 100 mg PO HS 14 Days #14 tab 12/26/22 09/18/24 Rx Propranolol [Inderal] 20 mg PO BID 07/08/23 09/18/24 History hydrOXYzine pamoate [Vistaril] 50 mg PO BID 09/08/23 09/18/24 History Dicyclomine [Bentyl] 20 mg PO TID PRN 09/18/24 09/18/24 History Gabapentin [Neurontin] 100 mg PO TID 09/18/24 09/18/24 History Omeprazole [PriLOSEC] 20 mg PO DAILY PRN 09/18/24 09/18/24 History Teriflunomide [Aubagio] 14 mg PO HS 09/18/24 09/18/24 History Allergies Allergy/AdvReac Type Severity Reaction Status Date / Time vancomycin Allergy Severe Rash/Hives, Verified 09/18/24 14:51 itching, burning Physical Examination - Vital Signs Vital Signs: Vital Signs Temp Pulse Pulse Resp BP BP Pulse Ox 09/19/24 08:40 97.9 F 98 16 132/83 97 09/19/24 01:40 97.4 F L 80 16 148/88 98 09/18/24 21:47 92 16 121/80 97 09/18/24 20:00 97.7 F 09/18/24 15:51 90 16 138/86 98 Intake and Output 09/18/24 09/19/24 09/19/24 22:59 06:59 14:59 Other: # Voids 3 Weight 96.162 kg Patient is a middle-aged female, in no acute distress. Patient is alert awake oriented to time place and person. Speech and language functions are normal. Patient can name and repeat very well. No aphasia or dysarthria. Attention, concentration and fund of knowledge is adequate. On cranial nerve examination, pupils are equal, round and reacting to light, visual verduzco are full on confrontation, with no neglect on double simultaneous stimulation. Her left visual acuity appears to be 20/30 and right visual acuity 20/20. Extraocular muscles are intact with no nystagmus. Face is symmetric, tongue protrudes to the midline. Palatal elevation and sensation normal, hearing and shoulder shrug normal, facial sensation normal. On muscle strength testing, there is no pronator drift and the strength is normal in arms and legs distally and proximally. Deep tendon reflexes are symmetric 1 at the biceps, 1 brachioradialis, 2 at the knees, 2 ankles and plantars downgoing. Sensory to touch is equal with no neglect on double simultaneous stimulation. Cerebellar function showed mild ataxia for zrmuml-ma-btak testing only with the left upper extremity. No ataxia for tibj-[id number]-uwys testing on either side. Tone and bulk of muscles normal. Gait deferred.. On general examination, there is no carotid bruit or murmur, S1-S2 audible. Chest is clear on consultation. Abdomen is soft nontender. No organomegaly, bowel sounds present. Peripheral pulses are present. No peripheral edema. Results - Laboratory Findings CBC and BMP: 09/19/24 08:01 09/19/24 08:01 Abnormal Lab Findings: Abnormal Labs 09/18/24 09/18/24 09/18/24 10:55 11:50 11:50 WBC Hgb 11.2 L Hct Immature Gran # Neutrophils # Eosinophils # Chloride 108 H Carbon Dioxide Anion Gap BUN BUN/Creatinine Ratio Glucose Calcium 8.0 L Total Protein 5.8 L Albumin 3.3 L Urine Protein Trace H 09/19/24 09/19/24 08:01 08:01 WBC 16.82 H Hgb 11.5 L Hct 35.7 L Immature Gran # 0.11 H Neutrophils # 15.28 H Eosinophils # 0 L Chloride Carbon Dioxide 18.4 L Anion Gap 12.60 H BUN 6.5 L BUN/Creatinine Ratio 10.83 L Glucose 164 H Calcium Total Protein Albumin Urine Protein Assessment and Plan Assessment: * 43-year-old female with relapsing remitting multiple sclerosis, presented with decreased vision left eye, headache and difficulty with walking. No signs of infection. Rule out MS exacerbation. * Last exacerbation 08/11/2022. * Hypercoagulable state, on anticoagulation * History of Vaping, quit one week ago Plan: * Patient has probable MS exacerbation. No signs of infection or other metabolic derangements noted. * Patient started on Solu-Medrol 1 g IVPB daily for 3-5 days. * MRI of the brain with and without contrast, evaluate for possible MS exacerbation. * Gastric ulcer prophylaxis: Patient on Protonix 40 mg IV daily * DVT prophylaxis: Start heparin 5000 subcu every 12 hours. * Patient had borderline B12/folate in the past. We will recheck. * Neurology will follow. Thank you for the consult.
[2024-09-20 07:38] VITALS: RESP 17
[2024-09-20] MEDS ORDERED: MAG HYDROX/AL HYDROX/SIMETH 30 ML CUP PO PRN (09:28)
[2024-09-20] MEDS ORDERED: CALCIUM CARBONATE 500 MG CHEWABLE PO PRN (09:28)
[2024-09-20] MEDS ORDERED: DEXTROSE 50% SYRINGE 50 ML IVP PRN ×2 (09:29)
[2024-09-20] MEDS: HEPARIN SODIUM,PORCINE 5,000 UNIT/ML 1 ML VIAL SQ SCH (10:55)
--- NOTE | 2024-09-20 10:55 | MR ---
EXAMINATION TYPE: MR brain wo/w con DATE OF EXAM: 09/20/2024 10:39 AM COMPARISON: 08/13/2022. CLINICAL INDICATION: Female, 43 years old with history of Headaches, left sided visual changes, MS fl are; PHH, Headache, Left sided visual changes, MS flare TECHNIQUE: Multi planar, multi sequence imaging was performed through the brain including: T1, T2, In version recovery, susceptibility weighted imaging and gradient echo imaging and Diffusion weighted im aging. The patient was then given intravenous contrast and multi planar, T1 fat-saturation images wer e obtained. IV Contrast: 9.5 mL Gadobutrol FINDINGS: White matter changes some of which are orthogonal to the lateral ventricles. No evidence fo r abnormal postcontrast enhancement. No abnormal diffusion restriction to suggest active demyelinatio n. The antony-white junctions, ventricular system, basal cisterns appear unremarkable. Diffusion-weighted imaging shows no evidence of restricted diffusion to suggest acute/subacute infarct. Intracranial ar terial flow voids are maintained. Midline structures show no abnormality. The susceptibility weighted images do not reveal any evidence for micro-hemorrhage. After administration of gadolinium, no abnor mal enhancement is seen. The bone marrow signal is within normal limits. Paranasal sinuses and mastoid air cells: No significant paranasal sinus disease. Visualized orbits: Orbital contents are intact. IMPRESSION: No evidence for active demyelination. Scattered white matter changes compatible with multiple scleros is. No evidence of intracranial mass, acute/subacute infarct, or abnormal enhancement. [facility], , 09/20/2024 10:53 AM
[2024-09-20 12:00] LABS: Glucose,Whole Blood 191 mg/dL (70-110)
[2024-09-20] MEDS: INSULIN LISPRO (HumaLOG) 100 UNIT/ML 10 mL VL SQ SCH (12:46)
[2024-09-20 14:52] VITALS: BP 115/67; PULSE 85; TEMP 99.1
--- NOTE | 2024-09-20 16:01 | XR ---
EXAMINATION TYPE: XR chest 2V DATE OF EXAM: 09/20/2024 3:58 PM COMPARISON: Chest radiographs from 07/09/2024 TECHNIQUE: XR chest 2V Frontal and lateral views of the chest. CLINICAL INDICATION:Female, 43 years old with history of dyspnea; FINDINGS: Lungs/Pleura: There is no evidence of pleural effusion, focal consolidation, or pneumothorax. Pulmonary vascularity: Unremarkable. Heart/mediastinum: Cardiomediastinal silhouette is unremarkable. Musculoskeletal: No acute osseous pathology. Remote right-sided rib fractures. IMPRESSION: No acute cardiopulmonary disease/process. [facility], , 09/20/2024 3:59 PM
[2024-09-20 16:55] LABS: Glucose,Whole Blood 177 mg/dL (70-110)
--- NOTE | 2024-09-21 11:23 | P.PN ---
Subjective Progress Note Date: 09/20/24 Patient was seen for follow-up. Patient has received 3/3 doses of Solu-Medrol. Patient states that her blurred vision has almost normalized and at baseline but the brightness is still there. No new concerns. Objective - Vital Signs Vital signs: Vital Signs Temp 99.1 F 09/20/24 14:00 Pulse 85 09/20/24 14:00 Resp 17 09/20/24 14:00 BP 115/67 09/20/24 14:00 Pulse Ox 94 L 09/20/24 14:00 FiO2 Intake & Output 09/19/24 09/20/24 09/20/24 18:59 06:59 18:59 Intake Total 350 Balance 350 Intake: Oral 350 Other: # Voids 1 - Exam Examination remains unchanged. - Labs CBC & Chem 7: 09/19/24 08:01 09/19/24 08:01 Labs: Abnormal Lab Results - Last 24 Hours (Table) 09/20/24 09/20/24 Range/Units 07:15 11:59 POC Glucose (mg/dL) 191 H (70-110) mg/dL Folate 3.70 L (4.40-31.00) ng/mL Assessment and Plan Assessment: * 43-year-old female with relapsing remitting multiple sclerosis, presented with decreased vision left eye, headache and difficulty with walking. No signs of infection. Rule out MS exacerbation. * Last exacerbation 08/11/2022. * Hypercoagulable state, on anticoagulation * History of Vaping, quit one week ago Plan: * Patient has probable MS exacerbation. No signs of infection or other metabolic derangements noted. * Patient has completed Solu-Medrol 1 g IVPB daily for 3 days. Today was the dose #3. * MRI of the brain with and without contrast, revealed no evidence for active demyelination. Scattered white matter changes compatible with multiple sclerosis. No evidence of intracranial mass, acute/subacute infarct or abnormal enhancement. I personally reviewed MRI, agree with the findings. No active lesions. * Patient is back to baseline. * Patient had borderline B12/folate in the past. Repeat B12 is 420, folate 3.7. Recommend replacement of these vitamins. * Patient will discharge on prednisone 60 mg daily for 1 day and decrease by 10 mg daily until off. * Recommend patient follow-up with neurologist outpatient. Addendum 09/21/2024: Patient already has been discharged at the time B12 folate level came. I called patient's home, informed the folic acid was low 3.7 and she needs to be started on folic acid 1 mg daily. She has an appointment coming up with her primary physician and will have it filled by her primary physician.
--- NOTE | 2024-09-22 19:48 | P.DS ---
Providers Date of admission: 09/18/24 14:13 Attending physician: Ирина Peña MD Consults: 09/18/24 14:05 Consult Physician Urgent Consulting Provider: Babak Mari Consult Reason/Comments: MS exacerbation, optic neuritis Do you want consulting provider notified?: Yes Primary care physician: Dary La Hospital Course: Final Diagnosis Acute MS exacerbation/optic neuritis Upper respiratory infection resolved Anxiety/depression Gastroesophageal reflux disease Hypertension Discharge Disposition Patient stable for discharge home. She has been resumed on all same home medications. She was given a prescription by the neurologist for a high-dose prednisone taper starting at 60 mg. Patient to follow-up with her new neurologist on discharge. Hospital Course This is a 43-year-old female with medical history of pulmonary embolism, rheumatoid arthritis, multiple sclerosis who came into the hospital with complaints of weakness and fatigue as well as a 50% vision loss in bilateral eyes with headache. Patient feels that she was having an MS flare with optic neuritis she follows with a neurologist Dr. Cardoso for her MS and she has been maintained on Aubagio. Patient was admitted to the hospital with a neurology consultation started on high-dose IV methylprednisolone infusions. Patient had a brain MRI which reveals no evidence for active demyelination there is scattered white matter changes compatible with multiple sclerosis. No evidence for intracranial mass acute/subacute infarct or abnormal enhancement. Clinically she improved has been up ambulating without difficulty. Her vision has been returning. Her headache has been improved. She did have a chest x-ray prior to discharge secondary to some shortness of breath however she has no acute cardiopulmonary disease or process noted. Neurology follow-up with the patient and as she completed 3 days of IV methylprednisone infusion she was cleared for discharge home to complete a high-dose prednisone taper starting at 60 mg. Please see medication reconciliation for a list of current medications. Thank you for allowing us to participate in the care of this patient. The impression and plan of care has been dictated by Divina Garrison, Nurse Practitioner as directed. Dr. Hung MD I have performed a history and physical examination and medical decision making of this patient, discussed the same with the dictator, and agree with the dictators assessment and plan as written, documented as a scribe. Based on total visit time, I have performed more than 50% of this visit. Patient Condition at Discharge: Stable Plan - Discharge Summary Discharge Rx Participant: Yes New Discharge Prescriptions: Continue traZODone HCL [Desyrel] 100 mg PO HS 14 Days #14 tab Propranolol [Inderal] 20 mg PO BID hydrOXYzine pamoate [Vistaril] 50 mg PO BID Gabapentin [Neurontin] 100 mg PO TID Omeprazole [PriLOSEC] 20 mg PO DAILY PRN PRN Reason: Gi Upset Teriflunomide [Aubagio] 14 mg PO HS busPIRone HCL [Buspar] 30 mg PO BID 14 Days #28 tablet DULoxetine HCL [Cymbalta] 60 mg PO BID 14 Days #28 cap [place] Carbonate ER [Lithobid] 450 mg PO DAILY 14 Days #14 tab Dicyclomine [Bentyl] 20 mg PO TID PRN PRN Reason: Gi Upset Discharge Medication List DULoxetine HCL [Cymbalta] 60 mg PO BID 14 Days #28 cap 12/26/22 [Rx] [place] Carbonate ER [Lithobid] 450 mg PO DAILY 14 Days #14 tab 12/26/22 [Rx] busPIRone HCL [Buspar] 30 mg PO BID 14 Days #28 tablet 12/26/22 [Rx] traZODone HCL [Desyrel] 100 mg PO HS 14 Days #14 tab 12/26/22 [Rx] Propranolol [Inderal] 20 mg PO BID 07/08/23 [History] hydrOXYzine pamoate [Vistaril] 50 mg PO BID 09/08/23 [History] Dicyclomine [Bentyl] 20 mg PO TID PRN 09/18/24 [History] Gabapentin [Neurontin] 100 mg PO TID 09/18/24 [History] Omeprazole [PriLOSEC] 20 mg PO DAILY PRN 09/18/24 [History] Teriflunomide [Aubagio] 14 mg PO HS 09/18/24 [History] Follow up Appointment(s)/Referral(s): Dary La MD [Primary Care Provider] - 1-2 days Patient Instructions/Handouts: Multiple Sclerosis (DC), Optic Neuritis (DC) Activity/Diet/Wound Care/Special Instructions: Follow up with your known neurologist Continue oral prednisone taper Discharge Disposition: HOME SELF-CARE
== END 2024-09-20 17:30 | disposition home or self-care (01) ==
LOC: EC 09:43 → 5NMEDONC 14:12 → UNDOADMOB 14:12 → OBSVTOIN 14:13 → INTOOBSV 14:13 → 5NMEDONC 14:24 → 1SOBS 09-19 15:30 → 5NMEDONC 09-19 15:30 → 1SOBS 09-19 17:40 → UNDODISIN 09-20 17:30
PROVIDERS: ADMIT Internal Medicine; ATTEND Internal Medicine
DX: G35 Multiple sclerosis (principal); H46.9 Unspecified optic neuritis; J06.9 Acute upper respiratory infection, unspecified; D68.59 Other primary thrombophilia; F32.A Depression, unspecified; F41.9 Anxiety disorder, unspecified; I10 Essential (primary) hypertension; M06.9 Rheumatoid arthritis, unspecified; K21.9 Gastro-esophageal reflux disease without esophagitis; Z88.1 Allergy status to other antibiotic agents; Z79.899 Other long term (current) drug therapy; Z86.711 Personal history of pulmonary embolism; Z87.891 Personal history of nicotine dependence
CPT/HCPCS: 96366 ×2; 96372; 96376 ×2; 96365; 96375 ×2; 99285; 36415; 80053; 80048; 85652; 84443; 82607; 82746; 83735; 85025 ×2; 86140; 81003; 87636; 71046; 70553; G0378 ×3; J1644; J1885 ×2; A9585; J2919 ×3; J2470 ×2; 96361; 99284

== ENCOUNTER → 2024-09-28 | Outpatient (CLI) | payer OTHER ==
[2024-09-28 15:13] LABS: Basophils # (A) 0.05 X 10*3/uL (0.00-0.10); Basophils % (A) 0.4 %; Eosinophils # (A) 0.37 X 10*3/uL (0.04-0.35); Eosinophils % (A) 2.7 %; HCT 41.4 % (37.2-46.3); HGB 12.9 g/dL (12.0-15.0); Lymphocytes # (A) 2.66 X 10*3/uL (0.90-5.00); Lymphocytes % (A) 19.3 %; MCH 27.7 pg (27.0-32.0); MCHC 31.2 g/dL (32.0-37.0); Mean Platelet Volume 10.7 FL (9.5-12.2); Monocytes # (A) 1.21 X 10*3/uL (0.20-1.00); Monocytes % (A) 8.8 %; NRBC Per 100 WBC 0 X 10*3/uL (0.00-0.01); Neutrophils # (A) 9.41 X 10*3/uL (1.80-7.70); Neutrophils % (A) 68.1 %; Platelet Count 288 X 10*3/uL (140-440); RBC 4.65 X 10*6/uL (4.10-5.20); RDW 14.5 % (11.5-14.5); Testosterone 12.8 ng/dL (9.01-47.94); WBC 13.79 X 10*3/uL (4.50-10.00)
[2024-09-28 15:26] LABS: Follicle Stimulating Hormone 10.2 mIU/mL; Progesterone 0.5 ng/mL
== END | disposition home or self-care (01) ==
LOC: LABWHC1 10:46
PROVIDERS: ATTEND Midwife
DX: N92.1 Excessive and frequent menstruation with irregular cycle (principal); F41.9 Anxiety disorder, unspecified
CPT/HCPCS: 36415; 82670; 83001; 84144; 84403; 84432; 84443; 85025

== ENCOUNTER 2024-11-06 01:53 | Emergency (ER) | payer OTHER ==
[2024-11-06 02:02] VITALS: RESP 18; TEMP 98.2
--- NOTE | 2024-11-06 02:16 | ED ---
ENT HPI - General Chief complaint: Dental/Oral Stated complaint: tooth pain Time Seen by Provider: 11/06/24 02:05 Source: patient, RN notes reviewed Mode of arrival: ambulatory Limitations: no limitations - History of Present Illness Initial comments: This is a 44-year-old female presenting for left side facial swelling x 2 days. Patient endorses damaged tooth in area which she suspects may be infected due to associated pain (9/10). Endorses history of poor dentition. Endorses recent use of ibuprofen with minimal relief. Denies fever, chills, purulent discharge, elevation of floor of mouth, oropharyngeal edema, dyspnea. MD complaint: tooth pain Onset/Timin -: days(s) Location: tooth # 1 - Damaged, TTP Severity scale (1-10): 9 Consistency: constant Context- Dental: history of dental caries, poor dental care Associated Symptoms: toothache - Related Data Home Medications Medication Instructions Recorded Confirmed Propranolol [Inderal] 20 mg PO BID 07/08/23 09/18/24 hydrOXYzine pamoate [Vistaril] 50 mg PO BID 09/08/23 09/18/24 Dicyclomine [Bentyl] 20 mg PO TID PRN 09/18/24 09/18/24 Gabapentin [Neurontin] 100 mg PO TID 09/18/24 09/18/24 Omeprazole [PriLOSEC] 20 mg PO DAILY PRN 09/18/24 09/18/24 Teriflunomide [Aubagio] 14 mg PO HS 09/18/24 09/18/24 Previous Rx's Medication Instructions Recorded DULoxetine HCL [Cymbalta] 60 mg PO BID 14 Days #28 cap 12/26/22 [place] Carbonate ER [Lithobid] 450 mg PO DAILY 14 Days #14 tab 12/26/22 busPIRone HCL [Buspar] 30 mg PO BID 14 Days #28 tablet 12/26/22 traZODone HCL [Desyrel] 100 mg PO HS 14 Days #14 tab 12/26/22 Amoxic-Pot Clav 875-125Mg 1 tab PO Q12HR #20 tab 11/06/24 [Augmentin 875-125] Ibuprofen [Motrin] 800 mg PO Q8H PRN #20 tab 11/06/24 Allergies Allergy/AdvReac Type Severity Reaction Status Date / Time vancomycin Allergy Severe Rash/Hives, Verified 11/06/24 01:57 itching, burning Review of Systems ROS Statement: Those systems with pertinent positive or pertinent negative responses have been documented in the HPI. ROS Other: All systems not noted in ROS Statement are negative. Past Medical History Past Medical History: Blood Disorder, Eye Disorder, Neurologic Disorder, Pulmonary Embolus (PE), Rheumatoid Arthritis (RA), Vascular Disorder Additional Past Medical History / Comment(s): MS, optic neuritis, PE/pt cannot recall laterallity, aortic calcification, chronic low back pain/bulging discs, possible ventral hernia, past meth abuse/clean for 3 years. Patient reports pred iabetic History of Any Multi-Drug Resistant Organisms: MRSA Date of last positivie culture/infection: 04/09/22 MDRO Source:: Buttock Past Surgical History: Appendectomy, Cholecystectomy Additional Past Surgical History / Comment(s): ectopic (2/ L fallopian tube rupture with surgery, R labia abscess/I&D Past Anesthesia/Blood Transfusion Reactions: No Reported Reaction Past Psychological History: Anxiety, Depression Smoking Status: Former smoker, Vaper Past Alcohol Use History: Rare Past Drug Use History: Marijuana - Past Family History Father Family Medical History: No Reported History Mother History Unknown: Yes General Exam Limitations: no limitations General appearance: alert, in no apparent distress Head exam: Present: atraumatic, normocephalic, normal inspection Eye exam: Present: normal appearance, PERRL, EOMI. Absent: scleral icterus, conjunctival injection, periorbital swelling ENT exam: Present: normal exam, normal oropharynx, mucous membranes moist, other (Damaged left lower first molar with tenderness to palpation. Positive adjacent left mandibular edema and tenderness. Negative periapical abscess, elevation of floor of mouth) Neck exam: Present: tenderness (Positive left side neck tenderness and edema). Absent: meningismus, lymphadenopathy Respiratory exam: Present: normal lung sounds bilaterally. Absent: respiratory distress, wheezes, rales, rhonchi, stridor Cardiovascular Exam: Present: regular rate, normal rhythm, normal heart sounds. Absent: systolic murmur, diastolic murmur, rubs, gallop, clicks GI/Abdominal exam: Present: soft, normal bowel sounds. Absent: distended, tenderness, guarding, rebound, rigid Extremities exam: Present: normal inspection, full ROM, normal capillary refill. Absent: tenderness, pedal edema, joint swelling, calf tenderness Back exam: Present: normal inspection Neurological exam: Present: alert, oriented X3, CN II-XII intact Psychiatric exam: Present: normal affect, normal mood Skin exam: Present: warm, dry, intact, normal color. Absent: rash Course Vital Signs 11/06/24 11/06/24 01:58 02:50 Temperature 98.2 F Pulse Rate 100 82 Respiratory 18 18 Rate Blood Pressure 139/90 131/85 O2 Sat by Pulse 96 97 Oximetry Procedures - Nerve Block Consent Obtained: verbal consent Local Anesthetic Used: Marcaine 0.25% Side: left Intraoral Nerve Block: supraperiosteal Procedure Successful: Yes Complications: pain with procedure Patient Tolerated Procedure: well, no complications Medical Decision Making - Medical Decision Making Was pt. sent in by a medical professional or institution (Dr. PA, RECOVERY OPERATOR, urgent care, hospital, or [facility]...) When possible be specific @ -No Did you speak to anyone other than the patient for history (EMS, parent, family, police, friend...)? What history was obtained from this source @ -No Did you review nursing and triage notes (agree or disagree)? Why? @ -I reviewed and agree with nursing and triage notes Were old charts reviewed (outside hosp., previous admission, EMS record, old EKG, old radiological studies, urgent care reports/EKG's, [facility] records)? Report findings @ -No old charts were reviewed Differential Diagnosis (chest pain, altered mental status, abdominal pain women, abdominal pain men, vaginal bleeding, weakness, fever, dyspnea, syncope, headache, dizziness, GI bleed, back pain, seizure, CVA, palpatations, mental health, musculoskeletal)? @ -Dental infection, periapical abscess, ANUG, gingivitis, dental damage, Shamar's angina, this is not an exhaustive list EKG interpreted by me (3pts min.). @ -Not done X-rays interpreted by me (1pt min.). @ -None done CT interpreted by me (1pt min.). @ -None done U/S interpreted by me (1pt. min.). @ -None done What testing was considered but not performed or refused? (CT, X-rays, U/S, labs)? Why? @ -None What meds were considered but not given or refused? Why? @ -None Did you discuss the management of the patient with other professionals (professionals i.e. DrRio, PA, RECOVERY OPERATOR, lab, RT, psych nurse, social science research assistant, merchandise executive, teacher, radiation officer, dependency case manager)? Give summary @ -No Was smoking cessation discussed for >3mins.? @ -No Was critical care preformed (if so, how long)? @ -No Were there social determinants of health that impacted care today? How? (Homel essness, low income, unemployed, alcoholism, drug addiction, transportation, low edu. Level, literacy, decrease access to med. care, senior care, rehab)? @ -No Was there de-escalation of care discussed even if they declined (Discuss DNR or withdrawal of care, Hospice)? DNR status @ -No What co-morbidities impacted this encounter? (DM, HTN, Smoking, COPD, CAD, Cancer, CVA, ARF, Chemo, Hep., AIDS, mental health diagnosis, sleep apnea, morbid obesity)? @ -None Was patient admitted / discharged? Hospital course, mention meds given and route, prescriptions, significant lab abnormalities, going to OR and other pertinent info. @ -Patient provided p.o. viscous lidocaine and [place]. Supraperiosteal nerve block performed successfully patient noting complete cessation of pain. Patient provided initial doses of Augmentin with remaining regimen sent to patient's pharmacy. Along with Motrin 800. Advised alternate Tylenol/Motrin every 4 hours for pain along with warm salt water swishes. Follow-up with dentist for definitive treatment. Discussed patient with Dr. Tillman. Undiagnosed new problem with uncertain prognosis? @ -No Drug Therapy requiring intensive monitoring for toxicity (Heparin, Nitro, Insulin, Cardizem)? @ -No Were any procedures done? @ -Supraperiosteal block performed. See procedure note. Diagnosis/symptom? @ -Dentin damage, dental abscess Acute, or Chronic, or Acute on Chronic? @ -Acute Uncomplicated (without systemic symptoms) or Complicated (systemic symptoms)? @ -Uncomplicated Side effects of treatment? @ -No Exacerbation, Progression, or Severe Exacerbation? @ -No Poses a threat to life or bodily function? How? (Chest pain, [place], [place], pneumonia, PE, COPD, DKA, ARF, appy, cholecystitis, CVA, Diverticulitis, Homicidal, Suicidal, threat to staff... and all critical care pts) @ -No Disposition Clinical Impression: Dental abscess, Fracture of tooth Disposition: HOME SELF-CARE Condition: Good Instructions (If sedation given, give patient instructions): Dental Abscess (ED), Toothache (ED) Additional Instructions: Alternate Tylenol/Motrin every 4 hours for pain. Swish with warm salt water and apply warm compresses for 10 minutes up to 4 times daily. Follow-up with dentist for definitive care. Prescriptions: Amoxic-Pot Clav 875-125Mg [Augmentin 875-125] 1 tab PO Q12HR #20 tab Ibuprofen [Motrin] 800 mg PO Q8H PRN #20 tab PRN Reason: Pain Is patient prescribed a controlled substance at d/c from ED?: No Referrals: Dary La MD [Primary Care Provider] - 1-2 days Raymond Singh DMD [STAFF PHYSICIAN] - 1-2 days Time of Disposition: 03:00
[2024-11-06] MEDS: HYDROcodone/APAP 7.5-325MG 1 EACH TAB PO ONE (02:21)
[2024-11-06] MEDS: LIDOCAINE VISCOUS 2% 15 ML CUP MUCOUS MEM ONE (02:22)
[2024-11-06] MEDS: AMOXIC-POT CLAV 875-125MG 1 EACH TAB PO STA (02:22)
[2024-11-06] MEDS: BUPIVACAINE (PF) 0.25% 30 ML VIAL SQ ONE (02:22)
[2024-11-06 02:51] VITALS: BP 131/85; PULSE 82
== END 2024-11-06 02:51 | disposition home or self-care (01) ==
LOC: EC 01:53
DX: K04.7 Periapical abscess without sinus (principal); K03.81 Cracked tooth; M54.2 Cervicalgia; R60.0 Localized edema; F17.290 Nicotine dependence, other tobacco product, uncomplicated; Z88.1 Allergy status to other antibiotic agents
CPT/HCPCS: 64400; 99282; J0665